=== PATIENT | female | born 1965 | race African-American/Black ===

== ENCOUNTER 2016-08-21 10:15 | Inpatient (IN) | payer OTHER ==
[2016-08-21 10:24] VITALS: BMI 25.8
--- NOTE | 2016-08-21 11:13 | PDOC ---
History of Present Illness - General History Source: Patient Exam Limitations: No Limitations <Parisa Abebe - Last Filed: 08/21/16 16:25> - General History Source: Patient Exam Limitations: No Limitations - History of Present Illness Initial Comments: 08/21/16 11:55 The patient is a 51-year-old female with a significant past medical history of diabetes, kidney infection, stent in right leg, asthma, and gallstones, and presents to the emergency department with a wound infection and right toe pain, redness, and swelling for a week s/p right toe amputation one month ago. The patient had a portion of her 4th and 5th right toes amputated since the toenail of her 5th toe came off in May. She reports that she visited [facility] yesterday for the infection and blood flow issues and wanted to obtain a second consult about further amputation. The patient denies chest pain, shortness of breath, headache and dizziness. The patient denies fever, chills, nausea, vomit, diarrhea and constipation. The patient denies dysuria, frequency, urgency and hematuria. Allergies: NKDA Past Surgical History: Stent in right leg (through left groin) Social History: Current everyday smoker (6 cigarettes per day) PCP: Dr. Herbert Jo <Adrianne Vilchis - Last Filed: 08/21/16 17:39> - General Chief Complaint: Wound Infection Stated Complaint: RIGHT TOE PAIN Time Seen by Provider: 08/21/16 10:31 Past History - Past Medical History Asthma: Yes Diabetes: Yes - Psycho/Social/Smoking Cessation Hx Anxiety: No Suicidal Ideation: No Smoking Status: Yes Smoking History: Current every day smoker Have you smoked in the past 12 months: Yes Number of Cigarettes Smoked Daily: 6 Information on smoking cessation initiated: No Hx Alcohol Use: No Drug/Substance Use Hx: No Substance Use Type: Cocaine, Marijuana <Parisa Abebe - Last Filed: 08/21/16 16:25> <Adrianne Vilchis - Last Filed: 08/21/16 17:39> - Past Medical History Allergies/Adverse Reactions: Allergies Allergy/AdvReac Type Severity Reaction Status Date / Time No Known Allergies Allergy Verified 08/21/16 10:21 Home Medications: Ambulatory Orders Aspirin [ASA -] 81 mg PO DAILY 05/04/15 Diclofenac Sodium [Voltaren-Xr] 100 mg PO DAILY 05/04/15 Famotidine [Pepcid] 20 mg PO DAILY #30 05/04/15 Gabapentin [Neurontin -] 300 mg PO Q8H 05/04/15 Insulin (Levemir) [Levemir Vial] 60 unit SQ DAILY 05/04/15 Insulin Lispro Protamin/Lispro [Humalog Mix 75-25 Kwikpen] 30 unit SQ BID Metformin HCl [Glucophage] 1,000 mg PO BID 05/04/15 Oxycodone HCl/Acetaminophen [Percocet 10-325 mg Tablet] 1 tab PO Q6H PRN Atorvastatin Calcium 20 mg PO HS 08/21/16 Cefdinir [Omnicef -] 300 mg PO DAILY 08/21/16 Metoprolol Tartrate 50 mg PO DAILY 08/21/16 Metronidazole [Flagyl -] 500 mg PO DAILY 08/21/16 Oxycodone HCl/Acetaminophen [Endocet 5-325 Tablet] 1 each PO DAILY 08/21/16 Tiotropium [place] [Spiriva] 1 inh PO DAILY 08/21/16 Review of Systems - Review of Systems Able to Perform ROS?: Yes Comments:: 08/21/16 11:57 GENERAL/CONSTITUTIONAL: No fever or chills. No weakness. HEAD, EYES, EARS, NOSE AND THROAT: No change in vision. No ear pain or discharge. No sore throat. CARDIOVASCULAR: No chest pain or shortness of breath. RESPIRATORY: No cough, wheezing, or hemoptysis. GASTROINTESTINAL: No nausea, vomiting, diarrhea or constipation. GENITOURINARY: No dysuria, frequency, or change in urination. MUSCULOSKELETAL: No joint or muscle swelling or pain. No neck or back pain. EXTREMITIES: (+) Right foot pain, swelling and redness. (+) Right 5th toe amputation and infection. SKIN: No rash NEUROLOGIC: No headache, vertigo, loss of consciousness, or change in strength/ sensation. ENDOCRINE: No increased thirst. No abnormal weight change. HEMATOLOGIC/LYMPHATIC: No anemia, easy bleeding, or history of blood clots. ALLERGIC/IMMUNOLOGIC: No hives or skin allergy. <Vilchis,Adrianne - Last Filed: 08/21/16 17:39> *Physical Exam - Vital Signs Last Vital Signs Temp Pulse Resp BP Pulse Ox 98.1 F 80 18 131/76 100 08/21/16 10:22 08/21/16 10:22 08/21/16 10:22 08/21/16 10:22 08/21/16 10:22 <Parisa Abebe - Last Filed: 08/21/16 16:25> - Vital Signs Last Vital Signs Temp Pulse Resp BP Pulse Ox 98.1 F 80 18 131/76 100 08/21/16 10:22 08/21/16 10:22 08/21/16 10:22 08/21/16 10:22 08/21/16 10:22 - Physical Exam Comments: 08/21/16 11:58 GENERAL: Awake, alert, and fully oriented, in no acute distress HEAD: No signs of trauma EYES: PERRLA, EOMI, sclera anicteric, conjunctiva clear ENT: Auricles normal inspection, hearing grossly normal, nares patent, oropharynx clear without exudates. Moist mucosa NECK: Normal ROM, supple, no lymphadenopathy, JVD, or masses LUNGS: Breath sounds equal, clear to auscultation bilaterally. No wheezes, and no crackles HEART: Regular rate and rhythm, normal S1 and S2, no murmurs, rubs or gallops ABDOMEN: Soft, nontender, normoactive bowel sounds. No guarding, no rebound. No masses EXTREMITIES: (+) Right foot swollen and tender to palpation. (+) Surgical removal of 5th toe with open wound. Unable to obtain dopplerable signal. Normal range of motion, no edema. No clubbing or cyanosis. No cords, erythema NEUROLOGICAL: Cranial nerves II through XII grossly intact. Normal speech, normal gait SKIN: Warm, Dry, normal turgor, no rashes or lesions noted. <Adrianne Vilchis - Last Filed: 08/21/16 17:39> ED Treatment Course - LABORATORY CBC & Chemistry Diagram: 08/21/16 11:08 08/21/16 11:08 - RADIOLOGY Radiology Studies Ordered: Category Date Time Status LOWER EXT ART DOPP/PVR [VASC] Stat Vascular 08/21/16 11:05 Ordered <Parisa Abebe - Last Filed: 08/21/16 16:25> - LABORATORY CBC & Chemistry Diagram: 08/21/16 11:08 08/21/16 11:08 - ADDITIONAL ORDERS Additional order review: 08/21/16 11:08 RBC 3.66 D MCV 89.3 MCHC 32.6 RDW 14.3 MPV 7.3 L D Neutrophils % 79.8 Lymphocytes % 9.1 D Monocytes % 7.1 D Eosinophils % 3.4 D Basophils % 0.6 - RADIOLOGY Radiograph Interpretation: 08/21/16 14:11 US Duplex Art. Lower Complex Reviewed by: Dr. Parisa Abebe Interpreted by: Dr. Fam Motta IMPRESSION: Mild atherosclerotic disease with no evidence of occlusions or hemodynamically significant stenoses. 08/21/16 17:38 ABDOMEN CTA AOR & BLE RUNOFF Reviewed by: Dr. Parisa Abebe Interpreted by: Dr. Pasha Lowe IMPRESSION: Bilateral lower extremity arterial atherosclerotic disease, as described above , with most significant disease in the infrapopliteal arteries: - Occluded origin of the right TAISHA which reconstitutes via collateral flow then reoccludes at the level of the distal ankle with predominant flow to the foot provided by peroneal artery as the SKIAGRAPHER x -ray high-grade stenosis at its origin and occlusion in its distal aspect with reconstitution distally via collateral flow before providing flow to the foot. - Poor runoff to the left foot as evident by occlusion of the left TAISHA at the level of the distal ankle as well as occluded left peroneal artery and posterior tibial artery with short segmental reconstitutions and flow to the foot provided by collateral filling of the plantar branches which in turn fills the dorsal aspect of the foot. Atrophied pancreatic body and tail containing coarse calcifications coupled with pancreatic ductal dilatation suggestive of chronic pancreatitis. However given the nonatrophied pancreatic head and neck with segmental atrophy distally further evaluation with MRI without and with IV gadolinium is suggested on a nonemergent basis. Status post hysterectomy. <Adrianne Vilchis - Last Filed: 08/21/16 17:39> Medical Decision Making - Medical Decision Making 08/21/16 11:13 A portion of this note was documented by scribe services under my direction. I have reviewed the details of the note, within reason, and agree with the documentation with the following case summary and management plan written by me. Nursing documentation reviewed and incorporated into medical decision making 08/21/16 11:31 This is a 51 yo F with a history of Insulin dependent DM, HTN, HLD, non healing right lower extremity foot ulcers, s/p amputation small toe Since may, pt has had several hospitalizations (?debridements) for foot infection at outside hospital Pt was seen by her surgeon yesterday who told her that she needs a BKA because her foot will not improve Pt refused surgical intervention , was encouraged by her sister to get a 2nd opinion Pt son brought her to the ER for her 2nd opinion PMD: Herbert Jo On examination Dusky right foot Pulse not palpable or dopplerable Right toe amputated Open wound with his dressed Will do: Labs US Art to 08/21/16 11:39 08/21/16 14:28 Laboratory Tests 08/21/16 08/21/16 11:08 11:08 WBC 19.2 H D Hgb 10.7 D Hct 32.7 D Plt Count 837 H D Neutrophils % 79.8 Lymphocytes % 9.1 D BUN 16 D Creatinine 1.2 H D Random Glucose 185 H Arterial duplex: Atherosclerotic plaque scattered throughout the common and SFA, popliteal and PT arteries. Triphasic flow noted throughout all vessels No evidence of occlusion or stenosis Call placed to Dr Manzo He recommends CTA Aorta with bilateral run offs Pt requesting pain medications Will give Morphine Will re assess 08/21/16 16:[address] Pimentel Will admit to his service Plan is for Angiogram tomorrow <Parisa Abebe - Last Filed: 08/21/16 16:25> - Medical Decision Making 08/21/16 13:39 Dr. Jose Manzo paged. 08/21/16 13:44 Dr. Manzo answered page. <Adrianne Vilchis - Last Filed: 08/21/16 17:39> *DC/Admit/Observation/Transfer - Discharge Dispostion Admit: Yes <Parisa Abebe - Last Filed: 08/21/16 16:25> - Attestations Scribe Attestion: 08/21/16 11:59 Documentation prepared by Adrianne Vilchis, acting as medical management specialist for Parisa Abebe MD. <Adrianne Vilchis - Last Filed: 08/21/16 17:39> Diagnosis at time of Disposition: Ischemic foot - Discharge Dispostion Condition at time of disposition: Stable - Referrals
[2016-08-21 11:42] LABS: BASOPHIL 0.6 % (0-2.0); EOSINOPHIL 3.4 % (0-4.5); MCH 29.1 pg (25.7-33.7); MCHC 32.6 g/dl (32.0-36.0); MEAN CELL VOLUME 89.3 fl (80-96); MEAN PLT VOLUME 7.3 fl (7.5-11.1); NEUTROPHILS 79.8 % (42.8-82.8); PLATELET COUNT 837 K/MM3 (134-434); RDW 14.3 % (11.6-15.6); WHITE BLOOD COUNT 19.2 K/mm3 (4.0-10.0)
[2016-08-21 12:01] LABS: ALBUMIN 1.8 g/dl (3.4-5.0); BILIRUBIN,TOTAL 0.2 mg/dL (0.2-1.0); CALCIUM 8.5 mg/dL (8.5-10.1); CREATININE 1.2 mg/dL (0.55-1.02); TOT PROT 6.3 g/dl (6.4-8.2)
[2016-08-21] MEDS ORDERED: morphine CARPU-JECT 4 MG/1 ML DISP.SYRIN IVPUSH ONE (14:09)
[2016-08-21] MEDS ORDERED: morphine CARPU-JECT 4 MG/1 ML DISP.SYRIN ONE (15:02)
--- NOTE | 2016-08-21 15:32 | CONSULT ---
Consult - Alcohol/Substance Use Hx Alcohol Use: No - Smoking History Smoking history: Current every day smoker Have you smoked in the past 12 months: Yes Aproximately how many cigarettes per day: 6 Home Medications - Allergies Allergies/Adverse Reactions: Allergies Allergy/AdvReac Type Severity Reaction Status Date / Time No Known Allergies Allergy Verified 08/21/16 10:21 - Home Medications Home Medications: Ambulatory Orders Aspirin [ASA -] 81 mg PO DAILY 05/04/15 Diclofenac Sodium [Voltaren-Xr] 100 mg PO DAILY 05/04/15 Famotidine [Pepcid] 20 mg PO DAILY #30 05/04/15 Gabapentin [Neurontin -] 300 mg PO Q8H 05/04/15 Insulin (Levemir) [Levemir Vial] 60 unit SQ DAILY 05/04/15 Insulin Lispro Protamin/Lispro [Humalog Mix 75-25 Kwikpen] 30 unit SQ BID Metformin HCl [Glucophage] 1,000 mg PO BID 05/04/15 Oxycodone HCl/Acetaminophen [Percocet 10-325 mg Tablet] 1 tab PO Q6H PRN Atorvastatin Calcium 20 mg PO HS 08/21/16 Cefdinir [Omnicef -] 300 mg PO DAILY 08/21/16 Metoprolol Tartrate 50 mg PO DAILY 08/21/16 Metronidazole [Flagyl -] 500 mg PO DAILY 08/21/16 Oxycodone HCl/Acetaminophen [Endocet 5-325 Tablet] 1 each PO DAILY 08/21/16 Tiotropium [place] [Spiriva] 1 inh PO DAILY 08/21/16 Physical Exam Vital Signs: Vital Signs Temperature 98.1 F 08/21/16 10:22 Pulse Rate 79 08/21/16 14:16 Respiratory Rate 17 08/21/16 14:16 Blood Pressure 122/75 08/21/16 14:16 O2 Sat by Pulse Oximetry (%) 99 08/21/16 14:16 Labs: CBC, BMP 08/21/16 11:08 08/21/16 11:08 Assessment/Plan VAscular Surgery The patient is a 51-year-old female with a significant past medical history of diabetes, kidney infection, stent in right leg, asthma, and gallstones, and presents to the emergency department with a wound infection and right toe pain, redness, and swelling for a week s/p right toe amputation one month ago. The patient had a portion of her 4th and 5th right toes amputated since the toenail of her 5th toe came off in May. She reports that she visited [facility] yesterday for the infection and blood flow issues and wanted to obtain a second consult about further amputation. The patient denies chest pain, shortness of breath, headache and dizziness. The patient denies fever, chills, nausea, vomit, diarrhea and constipation. The patient denies dysuria, frequency, urgency and hematuria. Allergies: NKDA Past Surgical History: Stent in right leg (through left groin) Social History: Current everyday smoker (6 cigarettes per day) PCP: Dr. Herbert Jo <Adrianne Vilchis - Last Filed: 08/21/16 14:12> - General History Source: Patient Exam Limitations: No Limitations <Parisa Abebe - Last Filed: 08/21/16 14:36> - General Chief Complaint: Wound Infection Stated Complaint: RIGHT TOE PAIN Time Seen by Provider: 08/21/16 10:31 Past History <Adrianne Vilchis - Last Filed: 08/21/16 14:12> - Past Medical History Asthma: Yes Diabetes: Yes - Psycho/Social/Smoking Cessation Hx Anxiety: No Suicidal Ideation: No Smoking Status: Yes Smoking History: Current every day smoker Have you smoked in the past 12 months: Yes Number of Cigarettes Smoked Daily: 6 Information on smoking cessation initiated: No Hx Alcohol Use: No Drug/Substance Use Hx: No Substance Use Type: Cocaine, Marijuana <Parisa Abebe - Last Filed: 08/21/16 14:36> - Past Medical History Allergies/Adverse Reactions: Allergies Allergy/AdvReac Type Severity Reaction Status Date / Time No Known Allergies Allergy Verified 08/21/16 10:21 Home Medications: Ambulatory Orders Aspirin [ASA -] 81 mg PO DAILY 05/04/15 Diclofenac Sodium [Voltaren-Xr] 100 mg PO DAILY 05/04/15 Famotidine [Pepcid] 20 mg PO DAILY #30 05/04/15 Gabapentin [Neurontin -] 300 mg PO Q8H 05/04/15 Insulin (Levemir) [Levemir Vial] 60 unit SQ DAILY 05/04/15 Insulin Lispro Protamin/Lispro [Humalog Mix 75-25 Kwikpen] 30 unit SQ BID Metformin HCl [Glucophage] 1,000 mg PO BID 05/04/15 Oxycodone HCl/Acetaminophen [Percocet 10-325 mg Tablet] 1 tab PO Q6H PRN Atorvastatin Calcium 20 mg PO HS 08/21/16 Cefdinir [Omnicef -] 300 mg PO DAILY 08/21/16 Metoprolol Tartrate 50 mg PO DAILY 08/21/16 Metronidazole [Flagyl -] 500 mg PO DAILY 08/21/16 Oxycodone HCl/Acetaminophen [Endocet 5-325 Tablet] 1 each PO DAILY 08/21/16 Tiotropium [place] [Spiriva] 1 inh PO DAILY 08/21/16 PE head - NC/AT Lung - CTA Heart - RRR abd -soft,nd,nt Ext - right forefoot gangrene. no palpable pulses. A/P Right foot gangrene. CTA reviewed with extensive tibial disease. Will need Angiogram. Will do amna. Jose Manzo DO
[2016-08-21] MEDS ORDERED: SODIUM CHLORIDE 500 ML IV STA (20:51)
[2016-08-21] MEDS: morphine CARPU-JECT 2 MG/1 ML DISP.SYRIN IVPB PRN (20:52)
[2016-08-21] MEDS: DOCUSATE SODIUM 100 MG CAPSULE (FP) PO SCH (21:45)
[2016-08-21] MEDS: GABAPENTIN 300 MG CAPSULE (FP) PO SCH (21:45)
[2016-08-21] MEDS: HEPARIN NA (PORCINE) 5,000 UNITS/ML 1ML VIAL SQ SCH (21:53)
[2016-08-21] MEDS ORDERED: INSULIN (NOVOLOG) ASPART 100 UNITS/ML 10ML VIAL ONE (21:58)
[2016-08-21] MEDS ORDERED: ATORVASTATIN CA 20 MG TABLET (FP) PO SCH (22:00)
[2016-08-21] MEDS: INSULIN SLIDING SCALE (NOVOLOG) 1 VIAL SQ SCH (22:00)
[2016-08-21] MEDS: DEXTROSE 5%-0.45% SALINE 1,000 ML IV SCH (23:22)
[2016-08-22] MEDS ORDERED: ceFAZolin SODIUM 1 GM VIAL IVPB ONE
[2016-08-22] MEDS: morphine CARPU-JECT 2 MG/1 ML DISP.SYRIN IVPB PRN ×3 (02:15→20:51)
[2016-08-22] MEDS: GABAPENTIN 300 MG CAPSULE (FP) PO SCH ×3 (06:49→22:19)
[2016-08-22] MEDS: INSULIN (NOVOLOG MIX 70/30) 100 UNITS/ML MDV SQ SCH ×2 (06:52→18:37)
[2016-08-22] MEDS: INSULIN SLIDING SCALE (NOVOLOG) 1 VIAL SQ SCH ×4 (06:53→22:35)
[2016-08-22 07:38] LABS: BASOPHIL 0.6 % (0-2.0); EOSINOPHIL 3.6 % (0-4.5); MCH 29.2 pg (25.7-33.7); MCHC 32.7 g/dl (32.0-36.0); MEAN CELL VOLUME 89.3 fl (80-96); MEAN PLT VOLUME 7.1 fl (7.5-11.1); NEUTROPHILS 71.3 % (42.8-82.8); PLATELET COUNT 761 K/MM3 (134-434)
[2016-08-22 08:04] LABS: ALBUMIN 1.3 g/dl (3.4-5.0); AMYLASE 65 U/L (25-115); ANION GAP 7 (8-16); CO2 25 mmol/L (21-32); GLUCOSE,RANDOM 191 mg/dL (74-106)
[2016-08-22 08:09] LABS: ALK PHOS 385 U/L (45-117); BILIRUBIN,TOTAL 0.1 mg/dL (0.2-1.0); CREATININE 0.8 mg/dL (0.55-1.02); SGOT/AST 14 U/L (15-37); SGPT/ALT 8 U/L (12-78); TOT PROT 4.9 g/dl (6.4-8.2)
[2016-08-22] MEDS: DOCUSATE SODIUM 100 MG CAPSULE (FP) PO SCH ×2 (09:27→22:18)
[2016-08-22] MEDS: HEPARIN NA (PORCINE) 5,000 UNITS/ML 1ML VIAL SQ SCH ×2 (09:27→22:19)
--- NOTE | 2016-08-22 09:43 | PN ---
Progress Note (short form) - Note Progress Note: ID Consult dictated Gangrene, R foot Leukocytosis, possible secondary infection Peripheral vascular disease Diabetes mellitus Await cultures Vascular surgery evaluation Empiric vancomycin/ zosyn
[2016-08-22] MEDS ORDERED: PIPERACILLIN/TAZOB 3.375 GM 50 ML IVPB SCH (10:00)
[2016-08-22] MEDS ORDERED: ACLIDINIUM BROMIDE 400 MCG/INH AERO.POWD IH SCH (10:00)
[2016-08-22] MEDS ORDERED: ASPIRIN 81 MG CHEWABLE TABLETS PO SCH (10:00)
[2016-08-22] MEDS ORDERED: METOPROLOL TARTRATE 50 MG TABLET (FP) PO SCH (10:00)
[2016-08-22] MEDS ORDERED: RANITIDINE HCL 150 MG TABLET (FP) PO SCH (10:00)
--- NOTE | 2016-08-22 10:58 | CONS ---
DATE OF CONSULTATION: HISTORY: The patient is a 51-year-old diabetic female with a history of peripheral vascular disease evaluated for leukocytosis. The patient was admitted to [facility] several weeks ago with an infection of the right 5th toe. She subsequently developed gangrene requiring amputation of that toe. Postoperatively she developed a wound infection and was re-hospitalized. She was treated with a course of IV antibiotic therapy. According to the patient, the foot became more discolored, and she was advised amputation of the right foot. She was discharged from [facility] and came to [facility] for a second opinion. She was seen in the emergency room where she was noted to have a necrotic wound involving the right foot and evidence of dry gangrene involving the remaining toes. She was also noted to have an elevated white blood cell count. She denies any fever or chills. The patient does not give a reliable history. At the present time, she complains of pain in the right foot especially with manipulation. PAST MEDICAL HISTORY: Positive for diabetes mellitus, peripheral vascular disease, asthma, cholelithiasis. PAST SURGICAL HISTORY: Status post vascular stent right lower extremity, hysterectomy, status post amputation of the right 5th toe. ALLERGIES: No known allergies. MEDICATIONS: Aspirin, Colace, Lipitor, metoprolol, Neurontin, insulin, Zantac. SOCIAL HISTORY: She lives at home in the community. She is an active smoker smoking approximately 6 cigarettes per day. Positive history of cocaine and marijuana use as per chart. HIV status is not known. SYSTEMS REVIEW: Neurologic: No loss of consciousness, seizure activity, focal weakness. Cardiac: Negative chest pain or palpitations. Respiratory: Negative cough or sputum production. Gastrointestinal: Negative vomiting or diarrhea. Genitourinary: Negative for urinary tract infection. LABORATORY DATA: White count on admission 19,000, presently 14 with 71 neutrophils, 16 lymphocytes, 8 monocytes, 3 eosinophils. Hematocrit 29.6, platelet count 761, BUN 11, creatinine 0.8, sedimentation rate 124, total bilirubin 0.1, alkaline phosphatase 385, AST 14. Chest x-ray negative for acute infiltrate. Blood cultures pending. PHYSICAL EXAMINATION: General: She is awake and alert. She is in no acute distress. Vital Signs: Temperature 97.1, blood pressure 141/74, pulse 90 and regular, respirations 18 per minute. HEENT: Sclerae anicteric. Heart: S1, S2. Lungs: Clear. Abdomen: Soft. No tenderness elicited. No mass, rebound, rigidity. Extremities: Right foot, there is a large ulceration present over the lateral aspect of the dorsal part of the right foot. It appears necrotic and dry. There appears to be exposed tender. The remaining toes are dusky. There is what appears to be dry gangrene extending from the toes to the midpart of the dorsum of the foot. No crepitus or fluctuance. No purulent drainage or foul odor. No lymphangitis. IMPRESSION: 1. Gangrene of the right foot. 2. Leukocytosis, possible secondary infection. 3. Peripheral vascular disease. 4. Diabetes mellitus. PLAN: Await blood cultures. Obtain C-reactive protein. X-ray of the foot. Vascular surgery evaluation. Empiric antibiotic therapy with vancomycin and Zosyn. Local wound care. Thank you for the kind referral. DELMI BLUM M.D. [id number]
--- NOTE | 2016-08-22 10:58 | HP ---
Admitting History and Physical - Primary Care Physician PCP: Lula Pimentel - Admission Chief Complaint: RIGHT LOWER EXTREMITY ARTERIAL OCCLUSION History of Present Illness: The patient is a 51-year-old female with a significant past medical history of diabetes, kidney infection, stent in right leg, asthma, and gallstones, and presents to the emergency department with a wound infection and right toe pain, redness, and swelling for a week s/p right toe amputation one month ago. The patient had a portion of her 4th and 5th right toes amputated since the toenail of her 5th toe came off in May. She reports that she visited [facility] yesterday for the infection and blood flow issues and wanted to obtain a second consult about further amputation. The patient denies chest pain, shortness of breath, headache and dizziness. The patient denies fever, chills, nausea, vomit, diarrhea and constipation. The patient denies dysuria, frequency, urgency and hematuria. Allergies: NKDA Past Surgical History: Stent in right leg (through left groin) Social History: Current everyday smoker (6 cigarettes per day) History Source: Patient Limitations to Obtaining History: No Limitations - Past Medical History Cardiovascular: Yes: HTN, Other ...: No Endocrine: Yes: Diabetes Mellitus - Smoking History Smoking history: Current every day smoker Have you smoked in the past 12 months: Yes Aproximately how many cigarettes per day: 6 - Alcohol/Substance Use Hx Alcohol Use: No Home Medications - Allergies Allergies/Adverse Reactions: Allergies Allergy/AdvReac Type Severity Reaction Status Date / Time No Known Allergies Allergy Verified 08/21/16 10:21 - Home Medications Home Medications: Ambulatory Orders Aspirin [ASA -] 81 mg PO DAILY 05/04/15 Diclofenac Sodium [Voltaren-Xr] 100 mg PO DAILY 05/04/15 Famotidine [Pepcid] 20 mg PO DAILY #30 05/04/15 Gabapentin [Neurontin -] 300 mg PO Q8H 05/04/15 Insulin (Levemir) [Levemir Vial] 60 unit SQ DAILY 05/04/15 Insulin Lispro Protamin/Lispro [Humalog Mix 75-25 Kwikpen] 30 unit SQ BID Metformin HCl [Glucophage] 1,000 mg PO BID 05/04/15 Oxycodone HCl/Acetaminophen [Percocet 10-325 mg Tablet] 1 tab PO Q6H PRN Atorvastatin Calcium 20 mg PO HS 08/21/16 Cefdinir [Omnicef -] 300 mg PO DAILY 08/21/16 Metoprolol Tartrate 50 mg PO DAILY 08/21/16 Metronidazole [Flagyl -] 500 mg PO DAILY 08/21/16 Oxycodone HCl/Acetaminophen [Endocet 5-325 Tablet] 1 each PO DAILY 08/21/16 Tiotropium [place] [Spiriva] 1 inh PO DAILY 08/21/16 Review of Systems - Review of Systems Constitutional: reports: Weakness Eyes: reports: No Symptoms HENT: reports: No Symptoms Neck: reports: No Symptoms Cardiovascular: reports: No Symptoms Respiratory: reports: No Symptoms Gastrointestinal: reports: No Symptoms Genitourinary: reports: No Symptoms Breasts: reports: No Symptoms Reported Musculoskeletal: reports: Muscle Pain, Other Integumentary: reports: No Symptoms Neurological: reports: Weakness Endocrine: reports: No Symptoms Hematology/Lymphatic: reports: No Symptoms Psychiatric: reports: No Symptoms Physical Examination Vital Signs: Vital Signs Temperature 97.1 F L 08/22/16 08:14 Pulse Rate 90 08/22/16 08:14 Respiratory Rate 18 08/22/16 08:14 Blood Pressure 141/74 08/22/16 08:14 O2 Sat by Pulse Oximetry (%) 99 08/21/16 21:00 Constitutional: Yes: Mild Distress, Moderate Distress Eyes: Yes: WNL HENT: Yes: WNL Neck: Yes: WNL Cardiovascular: Yes: WNL Respiratory: Yes: WNL Gastrointestinal: Yes: WNL Musculoskeletal: Yes: Muscle Weakness Extremities: Yes: Cold, Other Edema: Yes Edema: LLE: 1+, RLE: 1+ Peripheral Pulses WNL: Yes Wound/Incision: Yes: Dressing Dry and Intact ...Motor Strength: WNL Psychiatric: Yes: WNL Labs: CBC, BMP 08/22/16 06:35 08/22/16 06:35 Imaging - Results Cat Scan: Report Reviewed Problem List - Problems (1) Ischemic foot Code(s): I99.8 - OTHER DISORDER OF CIRCULATORY SYSTEM (2) Abdominal pain Code(s): R10.9 - UNSPECIFIED ABDOMINAL PAIN Qualifiers: Abdominal location: unspecified location Qualified Code(s): R10.9 - Unspecified abdominal pain (3) Tobacco dependence Code(s): F17.200 - NICOTINE DEPENDENCE, UNSPECIFIED, UNCOMPLICATED (4) 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
[2016-08-22] MEDS ORDERED: VANCOMYCIN 1 GRAM (PRE-DOCKED) 250 ML IVPB SCH (11:00)
[2016-08-22] MEDS ORDERED: NICOTINE 14 MG/24 HOURS TOPICAL PATCH TD SCH (11:00)
[2016-08-22] MEDS: DEXTROSE 5%-0.45% SALINE 1,000 ML IV SCH ×2 (11:49→20:53)
[2016-08-22] MEDS ORDERED: LIDOCAINE HCL 1%, 10 MG/ML (20ML VIAL) ONE (14:31)
[2016-08-22] MEDS ORDERED: HEPARIN NA (PORCINE) 5,000 UNITS/ML 1ML VIAL ONE ×2 (14:31→15:53)
[2016-08-22] MEDS ORDERED: PROPOFOL 20 ML ONE ×2 (14:46)
[2016-08-22] MEDS ORDERED: MIDAZOLAM HCL 2 MG/2 ML SINGLE DOSE VIAL ONE ×3 (14:46→15:09)
[2016-08-22] MEDS ORDERED: LIDOCAINE HCL 1%, 10 MG/ML (20ML VIAL) IJ ONE ×2 (15:15)
--- NOTE | 2016-08-22 15:59 | CONSULT ---
Consult Consult Specialty:: Nephrology Reason for Consultation:: elevated creatinine - History of Present Illness Chief Complaint: right foot pain History of Present Illness: Pt is a 51 year old female with pmhx of DM, PVD, asthma and gallstones who presents to the ER complaining of right foot pain. She says that is has been progressive. She complains of discoloration of her right leg. She went to [facility] [place], [place] and was told that she needs an amputation. She came here for a second opinion. She was found to have elevated creatinine and I was called to evaluate her. She did get a CT scan with contrast. She denies dysuria or hematuria. She is on diclofenac daily. Pt did have an episode of vomiting. 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 Medical History Cardio/Vascular: Yes: HTN, Other ...: No Endocrine: Yes: Diabetes Mellitus - Alcohol/Substance Use Hx Alcohol Use: No - Smoking History Smoking history: Current every day smoker Have you smoked in the past 12 months: Yes Aproximately how many cigarettes per day: 6 Home Medications - Allergies Allergies/Adverse Reactions: Allergies Allergy/AdvReac Type Severity Reaction Status Date / Time No Known Allergies Allergy Verified 08/21/16 10:21 - Home Medications Home Medications: Ambulatory Orders Aspirin [ASA -] 81 mg PO DAILY 05/04/15 Diclofenac Sodium [Voltaren-Xr] 100 mg PO DAILY 05/04/15 Famotidine [Pepcid] 20 mg PO DAILY #30 05/04/15 Gabapentin [Neurontin -] 300 mg PO Q8H 05/04/15 Insulin (Levemir) [Levemir Vial] 60 unit SQ DAILY 05/04/15 Insulin Lispro Protamin/Lispro [Humalog Mix 75-25 Kwikpen] 30 unit SQ BID Metformin HCl [Glucophage] 1,000 mg PO BID 05/04/15 Oxycodone HCl/Acetaminophen [Percocet 10-325 mg Tablet] 1 tab PO Q6H PRN Atorvastatin Calcium 20 mg PO HS 08/21/16 Cefdinir [Omnicef -] 300 mg PO DAILY 08/21/16 Metoprolol Tartrate 50 mg PO DAILY 08/21/16 Metronidazole [Flagyl -] 500 mg PO DAILY 08/21/16 Oxycodone HCl/Acetaminophen [Endocet 5-325 Tablet] 1 each PO DAILY 08/21/16 Tiotropium [place] [Spiriva] 1 inh PO DAILY 08/21/16 Family Disease History - Family Disease History Family History: Denies Review of Systems - Review of Systems Constitutional: reports: Chills, Malaise Eyes: reports: No Symptoms HENT: reports: No Symptoms Neck: reports: No Symptoms Cardiovascular: reports: No Symptoms Respiratory: reports: No Symptoms Gastrointestinal: reports: Vomiting Genitourinary: reports: No Symptoms Musculoskeletal: reports: Extremity Pain Integumentary: reports: Erythema Neurological: reports: No Symptoms Endocrine: reports: No Symptoms Physical Exam Vital Signs: Vital Signs Temperature 99.6 F 08/22/16 14:02 Pulse Rate 90 08/22/16 14:02 Respiratory Rate 20 08/22/16 14:02 Blood Pressure 160/80 08/22/16 14:02 O2 Sat by Pulse Oximetry (%) 99 08/21/16 21:00 Constitutional: Yes: Calm Eyes: Yes: Conjunctiva Clear HENT: Yes: Atraumatic Neck: Yes: Supple Cardiovascular: Yes: S1, S2 Respiratory: Yes: CTA Bilaterally Gastrointestinal: Yes: Soft, Vomiting Renal/: Yes: WNL Extremities: Yes: Other (right leg gangrene) Edema: No Neurological: Yes: Oriented Psychiatric: Yes: Oriented Labs: CBC, BMP 08/22/16 06:35 08/22/16 06:35 Laboratory Tests 05/04/15 08/21/16 08/21/16 16:00 11:08 11:08 WBC 19.2 H D Hgb Sodium Potassium Chloride Carbon Dioxide Anion Gap BUN Creatinine 0.6 1.2 H D Creat Clearance w eGFR Random Glucose Calcium Total Bilirubin 08/22/16 08/22/16 06:35 06:35 WBC 14.0 H Hgb 9.7 L Sodium 142 Potassium 4.8 Chloride 110 H Carbon Dioxide 25 Anion Gap 7 L BUN 11 D Creatinine 0.8 D Creat Clearance w eGFR > 60 Random Glucose 191 H Calcium 8.0 L Total Bilirubin 0.1 L D Imaging - Results Chest X-ray: Report Reviewed Problem List - Problems (1) Hypertension Code(s): I10 - ESSENTIAL (PRIMARY) HYPERTENSION (2) Ischemic foot Code(s): I99.8 - OTHER DISORDER OF CIRCULATORY SYSTEM (3) Tobacco dependence Code(s): F17.200 - NICOTINE DEPENDENCE, UNSPECIFIED, UNCOMPLICATED (4) 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 Code(s): E11.59 - TYPE 2 DIABETES MELLITUS WITH OTH CIRCULATORY COMPLICATIONS I70.209 - UNSP ATHSCL [place] ARTERIES OF EXTREMITIES, UNSP EXTREMITY (5) Abdominal pain Code(s): R10.9 - UNSPECIFIED ABDOMINAL PAIN Qualifiers: Abdominal location: unspecified location Qualified Code(s): R10.9 - Unspecified abdominal pain Assessment/Plan Current Medications Generic Name Dose Route Start Last Admin Trade Name Freq PRN Reason Stop Dose Admin Aclidinium [place] 1 puff 08/22/16 10:00 08/22/16 09:28 Tudorza - IH 1 puff BID BOLIVAR Administration Aspirin 81 mg 08/22/16 10:00 08/22/16 09:27 Asa - PO Not Given DAILY BOLIVAR Atorvastatin Calcium 20 mg 08/21/16 22:00 08/21/16 21:45 Lipitor - PO 20 mg HS BOLIVAR Administration Docusate Sodium 100 mg 08/21/16 22:00 08/22/16 09:27 Colace - PO 100 mg BID BOLIVAR Administration Gabapentin 300 mg 08/21/16 22:00 08/22/16 14:07 Neurontin - PO Not Given TID BOLIVAR Heparin Sodium (Porcine) 5,000 unit 08/21/16 22:00 08/22/16 09:27 Heparin - SQ Not Given BID BOLIVAR Dextrose/Sodium Chloride 1,000 mls @ 75 mls/hr 08/21/16 21:00 08/22/16 11:49 D5-1/2ns - IV 75 mls/hr ASDIR BOLIVAR Administration Vancomycin HCl 250 mls @ 166.667 mls/hr 08/22/16 11:00 08/22/16 13:18 Vancomycin (Pre-Docked) IVPB 166.667 mls/hr 1100,2300 BOLIVAR Administration Piperacillin Sod/Tazobactam Sod 50 mls @ 100 mls/hr 08/22/16 10:00 08/22/16 12: 30 Zosyn 3.375gm Ivpb (Pre-Docked) IVPB 100 mls/hr Q8H-IV BOLIVAR Administration Protocol Insulin Aspart 30 units 08/22/16 07:00 08/22/16 06:52 Novolog Mix 70/30 Vial SQ Not Given BIDAC BOLIVAR Insulin Aspart 1 vial 08/21/16 22:00 08/22/16 13:15 Novolog Vial Sliding Scale - SQ Not Given ACHS [facility] Protocol Metoprolol Tartrate 50 mg 08/22/16 10:00 08/22/16 09:27 Lopressor - PO 50 mg DAILY BOLIVAR Administration Morphine Sulfate 2 mg 08/21/16 20:40 08/22/16 10:17 Morphine Injection - IVPB 2 mg Q4H PRN Administration PAIN Nicotine 14 mg 08/22/16 11:00 08/22/16 13:20 Nicoderm Patch - TD Not Given DAILY [facility] Ranitidine HCl 150 mg 08/22/16 10:00 08/22/16 09:27 Zantac - PO 150 mg DAILY BOLIVAR Administration chart reviewed labs reviewed meds reviewed Impression 1. elevated creatinine likely from dehydration 2. PVD 3. active smoker 4. DM 5. HTN Plan - renal function is improved - cont with fluids - vascular follow up - check UA - repeat labs in am - stop diclofenac and avoid nsaids Dr Kitchen
[2016-08-22] MEDS ORDERED: PROTAMINE SULFATE 50 MG/5 ML VIAL ONE (16:11)
[2016-08-22] MEDS ORDERED: ONDANSETRON 4 MG/2 ML VIAL IVPUSH PRN ×2 (16:32→16:49)
[2016-08-22] MEDS ORDERED: HYDROmorphone HCL CARPU-JECT 1 MG/1 ML DISP.SYRIN IVPUSH PRN ×2 (16:32→16:49)
[2016-08-22] MEDS ORDERED: METOPROLOL TARTRATE 5 MG/5 ML VIAL ONE (16:40)
--- NOTE | 2016-08-22 16:40 | OP ---
Operative Note - Note: Operative Date: 08/22/16 Pre-Operative Diagnosis: Right foot gangrene Operation: Aortogram, Right lower extremity angiogram, Posterior tibial artery angioplasty Findings: AT and PT severe stenosis in foot. microvascular disease in foot Post-Operative Diagnosis: Same as Pre-op Surgeon: Jose Manzo Anesthesia: Fractional Estimated Blood Loss (mls): 50 Operative Report Dictated: Yes
[2016-08-22] MEDS ORDERED: LACTATED RINGERS SOLUTION 1,000 ML IV SCH ×2 (16:45→16:49)
--- NOTE | 2016-08-22 16:49 | PN ---
Progress Note (short form) - Note Progress Note: VAscular Surgery S/P angioplasty of tibial artery All disease is in the foot. all microvascular. If foot doesnt look good thursday, can attempt to use the crosser device (which has to be special ordered) to try to open more circulation to the forefoot. Currently pt has dopplerable DP adn PT pulse. Santyl daily and pt will need HBO upon DC Jose Manzo DO
--- NOTE | 2016-08-22 18:43 | CONSULT ---
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,ckd,has uncontrolled diabetes mellitus - History Source History Provided By: Patient - Past Medical History Cardio/Vascular: Yes: HTN, Other ...: No Endocrine: Yes: Diabetes Mellitus - Alcohol/Substance Use Hx Alcohol Use: No - Smoking History Smoking history: Current every day smoker Have you smoked in the past 12 months: Yes Aproximately how many cigarettes per day: 6 Home Medications - Allergies Allergies/Adverse Reactions: Allergies Allergy/AdvReac Type Severity Reaction Status Date / Time No Known Allergies Allergy Verified 08/21/16 10:21 - Home Medications Home Medications: Ambulatory Orders Aspirin [ASA -] 81 mg PO DAILY 05/04/15 Diclofenac Sodium [Voltaren-Xr] 100 mg PO DAILY 05/04/15 Famotidine [Pepcid] 20 mg PO DAILY #30 05/04/15 Gabapentin [Neurontin -] 300 mg PO Q8H 05/04/15 Insulin (Levemir) [Levemir Vial] 60 unit SQ DAILY 05/04/15 Insulin Lispro Protamin/Lispro [Humalog Mix 75-25 Kwikpen] 30 unit SQ BID Metformin HCl [Glucophage] 1,000 mg PO BID 05/04/15 Oxycodone HCl/Acetaminophen [Percocet 10-325 mg Tablet] 1 tab PO Q6H PRN Atorvastatin Calcium 20 mg PO HS 08/21/16 Cefdinir [Omnicef -] 300 mg PO DAILY 08/21/16 Metoprolol Tartrate 50 mg PO DAILY 08/21/16 Metronidazole [Flagyl -] 500 mg PO DAILY 08/21/16 Oxycodone HCl/Acetaminophen [Endocet 5-325 Tablet] 1 each PO DAILY 08/21/16 Tiotropium [place] [Spiriva] 1 inh PO DAILY 08/21/16 Review of Systems - Review of Systems Constitutional: reports: Malaise Eyes: reports: No Symptoms HENT: reports: No Symptoms Neck: reports: No Symptoms Cardiovascular: reports: Shortness of Breath Respiratory: reports: Exercise Intolerance Gastrointestinal: reports: No Symptoms Genitourinary: reports: No Symptoms Breasts: reports: No Symptoms Reported Musculoskeletal: reports: Extremity Pain, Muscle Pain, Muscle Cramps, Muscle Weakness Neurological: reports: Numbness, Weakness Endocrine: reports: Unexplained Weight Gain Hematology/Lymphatic: reports: No Symptoms Physical Exam Vital Signs: Vital Signs Temperature 99.1 F 08/22/16 16:30 Pulse Rate 85 08/22/16 17:30 Respiratory Rate 14 08/22/16 17:30 Blood Pressure 152/82 08/22/16 17:30 O2 Sat by Pulse Oximetry (%) 98 08/22/16 17:30 Constitutional: Yes: Anxious Eyes: Yes: EOM Intact HENT: Yes: Normocephalic Neck: Yes: Trachea Midline Cardiovascular: Yes: Regular Rate and Rhythm Respiratory: Yes: CTA Bilaterally Gastrointestinal: Yes: Normal Bowel Sounds ...Rectal Exam: Yes: Deferred Renal/: Yes: WNL Breast(s): Yes: WNL Musculoskeletal: Yes: Muscle Pain, Muscle Weakness Extremities: Yes: Delayed Capillary Refill, Pallor Edema: No Peripheral Pulses WNL: No Wound/Incision: Yes: Dressing Dry and Intact Neurological: Yes: Alert, Oriented, Numbness, Weakness Labs: CBC, BMP 08/22/16 06:35 08/22/16 06:35 Problem List - Problems (1) Hypertension Code(s): I10 - ESSENTIAL (PRIMARY) HYPERTENSION (2) Ischemic foot Code(s): I99.8 - OTHER DISORDER OF CIRCULATORY SYSTEM (3) 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 Code(s): E11.59 - TYPE 2 DIABETES MELLITUS WITH OTH CIRCULATORY COMPLICATIONS I70.209 - UNSP ATHSCL [place] ARTERIES OF EXTREMITIES, UNSP EXTREMITY Assessment/Plan Current Active Problems Hypertension (Acute) Ischemic foot (Acute) Tobacco dependence (Acute) 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 (Acute) Abnormal Lab Results 08/22/16 08/22/16 08/22/16 00:05 06:35 06:35 WBC 14.0 H RBC 3.32 L Hgb 9.7 L Hct 29.6 L Plt Count 761 H MPV 7.1 L Chloride 110 H Anion Gap 7 L Random Glucose 191 H Calcium 8.0 L Total Bilirubin 0.1 L D GGT 551 H AST 14 L D ALT 8 L D Alkaline Phosphatase 385 H D Total Protein 4.9 L D Albumin 1.3 L D Laboratory Results - last 24 hr 08/21/16 08/22/16 08/22/16 21:56 00:05 06:00 WBC RBC Hgb Hct MCV MCHC RDW Plt Count MPV Neutrophils % Lymphocytes % Monocytes % Eosinophils % Basophils % Sodium Potassium Chloride Carbon Dioxide Anion Gap BUN Creatinine Creat Clearance w eGFR POC Glucometer 269 Random Glucose Calcium Total Bilirubin GGT 551 H AST ALT Alkaline Phosphatase Total Protein Albumin Total Amylase Lipase 90 Cancelled 08/22/16 08/22/16 08/22/16 06:24 06:35 06:35 WBC 14.0 H RBC 3.32 L Hgb 9.7 L Hct 29.6 L MCV 89.3 MCHC 32.7 RDW 14.0 Plt Count 761 H MPV 7.1 L Neutrophils % 71.3 Lymphocytes % 16.1 D Monocytes % 8.4 Eosinophils % 3.6 Basophils % 0.6 Sodium 142 Potassium 4.8 Chloride 110 H Carbon Dioxide 25 Anion Gap 7 L BUN 11 D Creatinine 0.8 D Creat Clearance w eGFR > 60 POC Glucometer 176 Random Glucose 191 H Calcium 8.0 L Total Bilirubin 0.1 L D GGT AST 14 L D ALT 8 L D Alkaline Phosphatase 385 H D Total Protein 4.9 L D Albumin 1.3 L D Total Amylase 65 Lipase 74 08/22/16 08/22/16 13:14 18:19 WBC RBC Hgb Hct MCV MCHC RDW Plt Count MPV Neutrophils % Lymphocytes % Monocytes % Eosinophils % Basophils % Sodium Potassium Chloride Carbon Dioxide Anion Gap BUN Creatinine Creat Clearance w eGFR POC Glucometer 154 169 Random Glucose Calcium Total Bilirubin GGT AST ALT Alkaline Phosphatase Total Protein Albumin Total Amylase Lipase Current Medications Generic Name Dose Route Start Last Admin Trade Name Freq PRN Reason Stop Dose Admin Aclidinium [place] 1 puff 08/22/16 22:00 Tudorza - IH BID BOLIVAR Aspirin 81 mg 08/23/16 10:00 Asa - PO DAILY BOL[facility]AR Atorvastatin Calcium 20 mg 08/22/16 22:00 Lipitor - PO HS BOLIVAR Collagenase 1 applic 08/23/16 10:00 Santyl - TP DAILY BOL[facility]AR Docusate Sodium 100 mg 08/22/16 22:00 Colace - PO BID BOLIVAR Gabapentin 300 mg 08/22/16 22:00 Neurontin - PO TID [facility] Heparin Sodium (Porcine) 5,000 unit 08/22/16 22:00 Heparin - SQ BID [facility] Hydromorphone HCl 0.5 mg 08/22/16 16:49 Dilaudid Injection - IVPUSH 08/25/16 16:50 [id number] PRN PAIN Dextrose/Sodium Chloride 1,000 mls @ 75 mls/hr 08/22/16 16:49 D5-1/2ns - IV ASDIR [facility] Lactated Ringer's 1,000 mls @ 75 mls/hr 08/22/16 16:49 Lactated Ringers Solution IV ASDIR BOLIVAR Vancomycin HCl 250 mls @ 166.667 mls/hr 08/22/16 23:00 Vancomycin (Pre-Docked) IVPB 1100,2300 [facility] Piperacillin Sod/Tazobactam Sod 50 mls @ 100 mls/hr 08/22/16 18:00 Zosyn 3.375gm Ivpb (Pre-Docked) IVPB Q8H-IV [facility] Protocol Insulin Aspart 1 vial 08/22/16 22:00 Novolog Vial Sliding Scale - SQ ACHS [facility] Protocol Insulin Aspart 30 units 08/23/16 07:00 Novolog Mix 70/30 Vial SQ BIDAC [facility] Metoprolol Tartrate 50 mg 08/23/16 10:00 Lopressor - PO DAILY [facility] Morphine Sulfate 2 mg 08/22/16 16:49 Morphine Injection - IVPB Q4H PRN PAIN Nicotine 14 mg 08/23/16 10:00 Nicoderm Patch - TD DAILY [facility] Ondansetron HCl 4 mg 08/22/16 16:49 Zofran Injection IVPUSH 08/22/16 22:33 Q6H PRN NAUSEA AND/OR VOMITING Ranitidine HCl 150 mg 08/23/16 10:00 Zantac - PO DAILY [facility] plan: ck hba1c insulin coverage achs novolog novolg 70/30 30 units bid
[2016-08-22] MEDS: PIPERACILLIN/TAZOB 3.375 GM 50 ML IVPB SCH (18:59)
--- NOTE | 2016-08-22 19:35 | CON.GI ---
Consult Consult Specialty:: GASTROENTEROLOGY Referred by:: MERVIN RODRIGUEZ MD - History of Present Illness Chief Complaint: ABNORMAL PANCREAS ON CT SCAN History of Present Illness: 51 YEAR OLD ALCOHOLIC WHO STOPPED DRINKING LAST YEAR AFTER BOUTS OF PANCREATITIS ADMITTED WITH INFECTED AND ISCHEMIC RIGHT TOE THAT HAD AN ABNORMAL PANCREAS SEEN ON CT SCAN SHE HAS NO COMPLAINTS OF UPPER ABDOMINAL PAIN. SHE IS S/P CHOLECYSECTOMY FOR GALLSTONES IN 1997, HER LAST DRINK WAS A YEAR AGO. CT SCAN SHOWS AN ATROPHIC PANCREATIC TAIL AND CALCIFICATIONS IN THE [place]. THE ONLY PAIN SHE HAS IS ASSOCIATED WITH FATTY FOOD. SHE HAS SOME LOOSE STOOL ON OCCASION BUT THIS IS NOT OFTEN. SHE IS FOLLOWED BY A MATE CHIEF ON [facility]??? - History Source History Provided By: Patient Limitations to Obtaining History: Poor Historian - Past Medical History Cardio/Vascular: Yes: HTN, Other Pulmonary: Yes: Asthma Gastrointestinal: Yes: Pancreatitis Hepatobiliary: Yes: Other (ALCOHOLISM STOPPED ONE YEAR AGO) Renal/: Yes: Other (PYLEONEPHRITIS RECENTLY AT [facility]) ...: No Endocrine: Yes: Diabetes Mellitus - Past Surgical History Past Surgical History: Yes: Cholecystectomy - Alcohol/Substance Use Hx Alcohol Use: No ( ABOVE) - Smoking History Smoking history: Current every day smoker Have you smoked in the past 12 months: Yes Aproximately how many cigarettes per day: 6 Home Medications - Allergies Allergies/Adverse Reactions: Allergies Allergy/AdvReac Type Severity Reaction Status Date / Time No Known Allergies Allergy Verified 08/21/16 10:21 - Home Medications Home Medications: Ambulatory Orders Aspirin [ASA -] 81 mg PO DAILY 05/04/15 Diclofenac Sodium [Voltaren-Xr] 100 mg PO DAILY 05/04/15 Famotidine [Pepcid] 20 mg PO DAILY #30 05/04/15 Gabapentin [Neurontin -] 300 mg PO Q8H 05/04/15 Insulin (Levemir) [Levemir Vial] 60 unit SQ DAILY 05/04/15 Insulin Lispro Protamin/Lispro [Humalog Mix 75-25 Kwikpen] 30 unit SQ BID Metformin HCl [Glucophage] 1,000 mg PO BID 05/04/15 Oxycodone HCl/Acetaminophen [Percocet 10-325 mg Tablet] 1 tab PO Q6H PRN Atorvastatin Calcium 20 mg PO HS 08/21/16 Cefdinir [Omnicef -] 300 mg PO DAILY 08/21/16 Metoprolol Tartrate 50 mg PO DAILY 08/21/16 Metronidazole [Flagyl -] 500 mg PO DAILY 08/21/16 Oxycodone HCl/Acetaminophen [Endocet 5-325 Tablet] 1 each PO DAILY 08/21/16 Tiotropium [place] [Spiriva] 1 inh PO DAILY 08/21/16 Review of Systems - Review of Systems Constitutional: reports: No Symptoms Eyes: reports: No Symptoms HENT: reports: No Symptoms Neck: reports: No Symptoms Cardiovascular: reports: No Symptoms Respiratory: reports: No Symptoms Gastrointestinal: reports: No Symptoms Musculoskeletal: reports: Extremity Pain, Muscle Cramps Integumentary: reports: Change in Color Physical Exam-GI Vital Signs: Vital Signs Temperature 99.1 F 08/22/16 16:30 Pulse Rate 85 08/22/16 17:30 Respiratory Rate 14 08/22/16 17:30 Blood Pressure 152/82 08/22/16 17:30 O2 Sat by Pulse Oximetry (%) 98 08/22/16 17:30 Constitutional: Yes: No Distress, Other (S/P ANGIOPLASTY LOWER EXTREMITY) Cardiovascular: Yes: WNL Respiratory: Yes: WNL Gastrointestinal Inspection: Yes: WNL ...Auscultate: Yes: Normoactive Bowel Sounds ...Palpate: Yes: Soft Extremities: Yes: Other (DRESSINGS) Neurological: Yes: WNL Labs: CBC, BMP 08/22/16 06:35 08/22/16 06:35 Laboratory Tests 08/21/16 08/21/16 08/21/16 11:08 11:08 16:40 WBC 19.2 H D RBC 3.66 D Hgb 10.7 D Hct 32.7 D MCV 89.3 MCHC 32.6 RDW 14.3 Plt Count 837 H D MPV 7.3 L D Neutrophils % 79.8 Lymphocytes % 9.1 D Monocytes % 7.1 D Eosinophils % 3.4 D Basophils % 0.6 ESR Sodium Potassium Chloride Carbon Dioxide Anion Gap BUN Creatinine Creat Clearance w eGFR Random Glucose Calcium Total Bilirubin 0.2 D GGT AST 26 ALT 13 D Alkaline Phosphatase 488 H D C-Reactive Protein 6.9 H Total Protein Albumin 1.8 L D Total Amylase Lipase 08/21/16 08/22/16 08/22/16 16:40 00:05 06:35 WBC 14.0 H RBC 3.32 L Hgb 9.7 L Hct 29.6 L MCV 89.3 MCHC 32.7 RDW 14.0 Plt Count 761 H MPV 7.1 L Neutrophils % 71.3 Lymphocytes % 16.1 D Monocytes % 8.4 Eosinophils % 3.6 Basophils % 0.6 ESR 124 H Sodium Potassium Chloride Carbon Dioxide Anion Gap BUN Creatinine Creat Clearance w eGFR Random Glucose Calcium Total Bilirubin GGT 551 H AST ALT Alkaline Phosphatase C-Reactive Protein Total Protein Albumin Total Amylase Lipase 90 08/22/16 06:35 WBC RBC Hgb Hct MCV MCHC RDW Plt Count MPV Neutrophils % Lymphocytes % Monocytes % Eosinophils % Basophils % ESR Sodium 142 Potassium 4.8 Chloride 110 H Carbon Dioxide 25 Anion Gap 7 L BUN 11 D Creatinine 0.8 D Creat Clearance w eGFR > 60 Random Glucose 191 H Calcium 8.0 L Total Bilirubin 0.1 L D GGT AST 14 L D ALT 8 L D Alkaline Phosphatase 385 H D C-Reactive Protein Total Protein 4.9 L D Albumin 1.3 L D Total Amylase 65 Lipase Imaging - Results Cat Scan: Image Reviewed Problem List - Problems (1) Chronic pancreatitis Assessment/Plan: CHRONIC DISEASE FROM ALCOHOL ADD CREON WITH MEALS LIPASE OK FOLLOW ALK PHOS, IF STILL ELEVATED GET AMA OUTPATIENT NOT ALLOWED TO DRAW THAT LAB TEST IN THIS HOSPITAL WITHOUT PERMISSION Code(s): K86.1 - OTHER CHRONIC PANCREATITIS (2) Hypertension Code(s): I10 - ESSENTIAL (PRIMARY) HYPERTENSION (3) Ischemic foot Code(s): I99.8 - OTHER DISORDER OF CIRCULATORY SYSTEM (4) Tobacco dependence Code(s): F17.200 - NICOTINE DEPENDENCE, UNSPECIFIED, UNCOMPLICATED (5) 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
[2016-08-22] MEDS ORDERED: HYDROmorphone HCL CARPU-JECT 2 MG/1 ML DISP.SYRIN ONE (20:14)
[2016-08-22] MEDS ORDERED: morphine CARPU-JECT 2 MG/1 ML DISP.SYRIN IVPB PRN (20:29)
[2016-08-22] MEDS: ATORVASTATIN CA 20 MG TABLET (FP) PO SCH (22:18)
[2016-08-22] MEDS: ACLIDINIUM BROMIDE 400 MCG/INH AERO.POWD IH SCH (22:28)
[2016-08-22] MEDS ORDERED: INSULIN (NOVOLOG) ASPART 100 UNITS/ML 10ML VIAL ONE (22:31)
[2016-08-22] MEDS: VANCOMYCIN 1 GRAM (PRE-DOCKED) 250 ML IVPB SCH (23:34)
[2016-08-23] MEDS: PIPERACILLIN/TAZOB 3.375 GM 50 ML IVPB SCH ×3 (02:11→17:22)
[2016-08-23] MEDS: morphine CARPU-JECT 2 MG/1 ML DISP.SYRIN IVPB PRN ×3 (03:40→19:54)
[2016-08-23] MEDS ORDERED: INSULIN (NOVOLOG) ASPART 100 UNITS/ML 10ML VIAL ONE ×2 (06:30→07:12)
[2016-08-23] MEDS: GABAPENTIN 300 MG CAPSULE (FP) PO SCH ×3 (06:31→22:30)
[2016-08-23] MEDS: INSULIN SLIDING SCALE (NOVOLOG) 1 VIAL SQ SCH ×4 (06:31→22:30)
[2016-08-23] MEDS: INSULIN (NOVOLOG MIX 70/30) 100 UNITS/ML MDV SQ SCH ×2 (06:32→17:22)
[2016-08-23 07:29] LABS: MCH 28.7 pg (25.7-33.7); MCHC 32.4 g/dl (32.0-36.0); MEAN CELL VOLUME 88.4 fl (80-96); MEAN PLT VOLUME 7.2 fl (7.5-11.1); PLATELET COUNT 760 K/MM3 (134-434); WHITE BLOOD COUNT 13.5 K/mm3 (4.0-10.0)
[2016-08-23 07:56] LABS: CALCIUM 7.9 mg/dL (8.5-10.1); CREATININE 0.8 mg/dL (0.55-1.02)
[2016-08-23] MEDS ORDERED: PT OWN MED DRAWER 7, Y5N ONE ×2 (07:57→08:44)
[2016-08-23] MEDS: LIPASE/PROTEASE/AMYLASE 6,000 UNIT CAPSULE PO SCH ×3 (08:59→17:18)
[2016-08-23] MEDS: HEPARIN NA (PORCINE) 5,000 UNITS/ML 1ML VIAL SQ SCH ×2 (09:00→22:29)
[2016-08-23] MEDS: ASPIRIN 81 MG CHEWABLE TABLETS PO SCH (09:00)
[2016-08-23] MEDS: DOCUSATE SODIUM 100 MG CAPSULE (FP) PO SCH ×2 (09:00→22:28)
[2016-08-23] MEDS: METOPROLOL TARTRATE 50 MG TABLET (FP) PO SCH (09:00)
[2016-08-23] MEDS: ACLIDINIUM BROMIDE 400 MCG/INH AERO.POWD IH SCH ×2 (09:01→22:34)
[2016-08-23] MEDS: NICOTINE 14 MG/24 HOURS TOPICAL PATCH TD SCH (09:06)
[2016-08-23] MEDS: RANITIDINE HCL 150 MG TABLET (FP) PO SCH (09:07)
--- NOTE | 2016-08-23 10:21 | PN ---
Progress Note, Physician Chief Complaint: AWAKE ALERT DISCUSSED CASE WITH HER PATIENT NERVOUS ABOUT HAVING HER RIGHT FOOT AMPUTATED. I DISCUSSED THE IMPORTANCE OF STOPING HER DANGEROUS LIFESTYLE OF ETOH/RECREATIONAL DRUG USE AND FOLLOWING A STRICT ADA/LOW SODIUM/LOW FAT DIET. - Current Medication List Current Medications: Active Medications Aclidinium [place] (Tudorza -) 1 puff IH BID [facility] Last Admin: 08/23/16 09:01 Dose: 1 puff Aspirin (Asa -) 81 mg PO DAILY [facility] Last Admin: 08/23/16 09:00 Dose: 81 mg Atorvastatin Calcium (Lipitor -) 20 mg PO HS [facility] Last Admin: 08/22/16 22:18 Dose: 20 mg Collagenase (Santyl -) 1 applic TP DAILY [facility] Docusate Sodium (Colace -) 100 mg PO BID [facility] Last Admin: 08/23/16 09:00 Dose: 100 mg Gabapentin (Neurontin -) 300 mg PO TID [facility] Last Admin: 08/23/16 06:31 Dose: 300 mg Heparin Sodium (Porcine) (Heparin -) 5,000 unit SQ BID [facility] Last Admin: 08/23/16 09:00 Dose: 5,000 unit Hydromorphone HCl (Dilaudid Injection -) 0.5 mg IVPUSH [id number] PRN PRN Reason: PAIN Stop: 08/25/16 16:50 Last Admin: 08/22/16 16:33 Dose: 0.5 mg Dextrose/Sodium Chloride (D5-1/2ns -) 1,000 mls @ 75 mls/hr IV ASDIR [facility] Last Admin: 08/22/16 20:53 Dose: 75 mls/hr Vancomycin HCl (Vancomycin (Pre-Docked)) 250 mls @ 166.667 mls/hr IVPB 1100, 2300 [facility] Last Admin: 08/22/16 23:34 Dose: 166.667 mls/hr Piperacillin Sod/Tazobactam Sod (Zosyn 3.375gm Ivpb (Pre-Docked)) 50 mls @ 100 mls/hr IVPB Q8H-IV [facility] PRN Reason: Protocol Last Admin: 08/23/16 09:07 Dose: 100 mls/hr Insulin Aspart (Novolog Vial Sliding Scale -) 1 vial SQ ACHS [facility] PRN Reason: Protocol Last Admin: 08/23/16 06:31 Dose: 2 units Insulin Aspart (Novolog Mix 70/30 Vial) 30 units SQ BIDAC [facility] Last Admin: 08/23/16 06:32 Dose: 30 units Metoprolol Tartrate (Lopressor -) 50 mg PO DAILY [facility] Last Admin: 08/23/16 09:00 Dose: 50 mg Morphine Sulfate (Morphine Injection -) 2 mg IVPB Q4H PRN PRN Reason: PAIN Last Admin: 08/23/16 08:28 Dose: 2 mg Morphine Sulfate (Morphine Injection -) 2 mg IVPB Q4H PRN PRN Reason: PAIN Nicotine (Nicoderm Patch -) 14 mg TD DAILY [facility] Last Admin: 08/23/16 09:06 Dose: 14 mg Pancrelipase (Creon Dr 6,000 Units Capsule) 2 cap PO TIDCM [facility] Last Admin: 08/23/16 08:59 Dose: 2 cap Ranitidine HCl (Zantac -) 150 mg PO DAILY [facility] Last Admin: 08/23/16 09:07 Dose: 150 mg - Objective Vital Signs: Vital Signs Temperature 98.2 F 08/23/16 09:00 Pulse Rate 100 H 08/23/16 09:00 Respiratory Rate 08/23/16 09:00 Blood Pressure 130/74 08/23/16 09:00 O2 Sat by Pulse Oximetry (%) 100 08/22/16 21:00 Constitutional: Yes: Mild Distress Eyes: Yes: WNL HENT: Yes: WNL Neck: Yes: WNL Cardiovascular: Yes: WNL Respiratory: Yes: WNL Gastrointestinal: Yes: WNL Genitourinary: Yes: WNL Musculoskeletal: Yes: Muscle Pain Extremities: Yes: Other Edema: No Peripheral Pulses WNL: Yes Integumentary: Yes: Pressure Ulcer, Venous Stasis Changes Wound/Incision: Yes: Dressing Dry and Intact, Other Neurological: Yes: Pre-Existing Deficit, Other ...Motor Strength: RLE Labs: CBC, BMP 08/23/16 06:00 08/23/16 06:00 Problem List - Problems (1) Ischemic foot Code(s): I99.8 - OTHER DISORDER OF CIRCULATORY SYSTEM (2) Abdominal pain Code(s): R10.9 - UNSPECIFIED ABDOMINAL PAIN Qualifiers: Abdominal location: unspecified location Qualified Code(s): R10.9 - Unspecified abdominal pain (3) Tobacco dependence Code(s): F17.200 - NICOTINE DEPENDENCE, UNSPECIFIED, UNCOMPLICATED (4) 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
[2016-08-23] MEDS: VANCOMYCIN 1 GRAM (PRE-DOCKED) 250 ML IVPB SCH ×2 (11:00→22:35)
--- NOTE | 2016-08-23 11:16 | PN ---
Progress Note, Physician History of Present Illness: C/O foot pain No c/o fever/ chills Afebrile WBC improved Tolerating antibiotics - Current Medication List Current Medications: Active Medications Aclidinium [place] (Tudorza -) 1 puff IH BID [facility] Last Admin: 08/23/16 09:01 Dose: 1 puff Aspirin (Asa -) 81 mg PO DAILY [facility] Last Admin: 08/23/16 09:00 Dose: 81 mg Atorvastatin Calcium (Lipitor -) 20 mg PO HS [facility] Last Admin: 08/22/16 22:18 Dose: 20 mg Collagenase (Santyl -) 1 applic TP DAILY [facility] Docusate Sodium (Colace -) 100 mg PO BID [facility] Last Admin: 08/23/16 09:00 Dose: 100 mg Gabapentin (Neurontin -) 300 mg PO TID [facility] Last Admin: 08/23/16 06:31 Dose: 300 mg Heparin Sodium (Porcine) (Heparin -) 5,000 unit SQ BID [facility] Last Admin: 08/23/16 09:00 Dose: 5,000 unit Hydromorphone HCl (Dilaudid Injection -) 0.5 mg IVPUSH [id number] PRN PRN Reason: PAIN Stop: 08/25/16 16:50 Last Admin: 08/22/16 16:33 Dose: 0.5 mg Dextrose/Sodium Chloride (D5-1/2ns -) 1,000 mls @ 75 mls/hr IV ASDIR [facility] Last Admin: 08/22/16 20:53 Dose: 75 mls/hr Vancomycin HCl (Vancomycin (Pre-Docked)) 250 mls @ 166.667 mls/hr IVPB 1100, 2300 [facility] Last Admin: 08/23/16 11:00 Dose: 166.667 mls/hr Piperacillin Sod/Tazobactam Sod (Zosyn 3.375gm Ivpb (Pre-Docked)) 50 mls @ 100 mls/hr IVPB Q8H-IV [facility] PRN Reason: Protocol Last Admin: 08/23/16 09:07 Dose: 100 mls/hr Insulin Aspart (Novolog Vial Sliding Scale -) 1 vial SQ ACHS [facility] PRN Reason: Protocol Last Admin: 08/23/16 11:00 Dose: Not Given Insulin Aspart (Novolog Mix 70/30 Vial) 30 units SQ BIDAC [facility] Last Admin: 08/23/16 06:32 Dose: 30 units Metoprolol Tartrate (Lopressor -) 50 mg PO DAILY [facility] Last Admin: 08/23/16 09:00 Dose: 50 mg Morphine Sulfate (Morphine Injection -) 2 mg IVPB Q4H PRN PRN Reason: PAIN Last Admin: 08/23/16 08:28 Dose: 2 mg Morphine Sulfate (Morphine Injection -) 2 mg IVPB Q4H PRN PRN Reason: PAIN Nicotine (Nicoderm Patch -) 14 mg TD DAILY [facility] Last Admin: 08/23/16 09:06 Dose: Not Given Pancrelipase (Creon Dr 6,000 Units Capsule) 2 cap PO TIDCM [facility] Last Admin: 08/23/16 08:59 Dose: 2 cap Ranitidine HCl (Zantac -) 150 mg PO DAILY [facility] Last Admin: 08/23/16 09:07 Dose: 150 mg - Objective Vital Signs: Vital Signs Temperature 98.2 F 08/23/16 09:00 Pulse Rate 100 H 08/23/16 09:00 Respiratory Rate 17 08/23/16 09:00 Blood Pressure 130/74 08/23/16 09:00 O2 Sat by Pulse Oximetry (%) 100 08/22/16 21:00 Constitutional: Yes: No Distress Eyes: Yes: Conjunctiva Clear Cardiovascular: Yes: Regular Rate and Rhythm, S1, S2 Respiratory: Yes: CTA Bilaterally Gastrointestinal: Yes: Normal Bowel Sounds, Soft. No: Tenderness Extremities: Yes: Other (+ dry foot ulcer, dusky toes No purulent drainage or foul odor) Labs: CBC, BMP 08/23/16 06:00 08/23/16 06:00 Assessment/Plan Gangrene R foot Non-healing ulcer Leukocytosis, possible sepsis PVD DM Continue empiric zosyn/ vancomycin Local wound care
--- NOTE | 2016-08-23 12:11 | PN ---
Progress Note (short form) - Note Progress Note: RENAL Pt asleep, arousable Last Vital Signs Temp Pulse Resp BP Pulse Ox 98.2 F 100 H 17 130/74 100 08/23/16 09:00 08/23/16 09:00 08/23/16 09:00 08/23/16 09:00 08/22/16 21:00 lungs clear cvs s1s2 rr abd soft ext dressing is clean neuro a+ox3 CBC, BMP 08/23/16 06:00 08/23/16 06:00 Current Medications Generic Name Dose Route Start Last Admin Trade Name Freq PRN Reason Stop Dose Admin Aclidinium [place] 1 puff 08/22/16 22:00 08/23/16 09:01 Tudorza - IH 1 puff BID [facility] Administration Aspirin 81 mg 08/23/16 10:00 08/23/16 09:00 Asa - PO 81 mg DAILY [facility] Administration Atorvastatin Calcium 20 mg 08/22/16 22:00 08/22/16 22:18 Lipitor - PO 20 mg HS [facility] Administration Collagenase 1 applic 08/23/16 10:00 Santyl - TP DAILY [facility] Docusate Sodium 100 mg 08/22/16 22:00 08/23/16 09:00 Colace - PO 100 mg BID [facility] Administration Gabapentin 300 mg 08/22/16 22:00 08/23/16 06:31 Neurontin - PO 300 mg TID [facility] Administration Heparin Sodium (Porcine) 5,000 unit 08/22/16 22:00 08/23/16 09:00 Heparin - SQ 5,000 unit BID [facility] Administration Hydromorphone HCl 0.5 mg 08/22/16 16:49 08/22/16 16:33 Dilaudid Injection - IVPUSH 08/25/16 16:50 0.5 mg [id number] PRN Administration PAIN Dextrose/Sodium Chloride 1,000 mls @ 75 mls/hr 08/22/16 16:49 08/22/16 20:53 D5-1/2ns - IV 75 mls/hr ASDIR [facility] Administration Vancomycin HCl 250 mls @ 166.667 mls/hr 08/22/16 23:00 08/23/16 11:00 Vancomycin (Pre-Docked) IVPB 166.667 mls/hr 1100,2300 [facility] Administration Piperacillin Sod/Tazobactam Sod 50 mls @ 100 mls/hr 08/22/16 18:00 08/23/16 09: 07 Zosyn 3.375gm Ivpb (Pre-Docked) IVPB 100 mls/hr Q8H-IV [facility] Administration Protocol Insulin Aspart 1 vial 08/22/16 22:00 08/23/16 11:00 Novolog Vial Sliding Scale - SQ Not Given ACHS [facility] Protocol Insulin Aspart 30 units 08/23/16 07:00 08/23/16 06:32 Novolog Mix 70/30 Vial SQ 30 units BIDAC [facility] Administration Metoprolol Tartrate 50 mg 08/23/16 10:00 08/23/16 09:00 Lopressor - PO 50 mg DAILY [facility] Administration Morphine Sulfate 2 mg 08/22/16 16:49 08/23/16 08:28 Morphine Injection - IVPB 2 mg Q4H PRN Administration PAIN Morphine Sulfate 2 mg 08/22/16 20:29 Morphine Injection - IVPB Q4H PRN PAIN Nicotine 14 mg 08/23/16 10:00 08/23/16 09:06 Nicoderm Patch - TD Not Given DAILY [facility] Pancrelipase 2 cap 08/23/16 08:00 08/23/16 11:[address] 6,000 Units Capsule PO 2 cap TIDCM [facility] Administration Ranitidine HCl 150 mg 08/23/16 10:00 08/23/16 09:07 Zantac - PO 150 mg DAILY [facility] Administration Impression 1. elevated creatinine likely from dehydration- resolved 2. PVD 3. active smoker 4. DM 5. HTN Plan continue current managements avoid nephrotoxins MV
[2016-08-23] MEDS: COLLAGENASE CLOSTRIDIUM HIST. 30 GRAMS TUBE TP SCH (15:35)
[2016-08-23] MEDS: DEXTROSE 5%-0.45% SALINE 1,000 ML IV SCH ×3 (15:35→20:52)
--- NOTE | 2016-08-23 19:20 | PN ---
Progress Note, Physician Chief Complaint: Pt. pain controlled, no anesthesia complaints. - Current Medication List Current Medications: Active Medications Aclidinium [place] (Tudorza -) 1 puff IH BID [facility] Last Admin: 08/23/16 09:01 Dose: 1 puff Aspirin (Asa -) 81 mg PO DAILY [facility] Last Admin: 08/23/16 09:00 Dose: 81 mg Atorvastatin Calcium (Lipitor -) 20 mg PO HS [facility] Last Admin: 08/22/16 22:18 Dose: 20 mg Collagenase (Santyl -) 1 applic TP DAILY [facility] Last Admin: 08/23/16 15:35 Dose: 1 applic Docusate Sodium (Colace -) 100 mg PO BID [facility] Last Admin: 08/23/16 09:00 Dose: 100 mg Gabapentin (Neurontin -) 300 mg PO TID [facility] Last Admin: 08/23/16 15:35 Dose: 300 mg Heparin Sodium (Porcine) (Heparin -) 5,000 unit SQ BID [facility] Last Admin: 08/23/16 09:00 Dose: 5,000 unit Hydromorphone HCl (Dilaudid Injection -) 0.5 mg IVPUSH [id number] PRN PRN Reason: PAIN Stop: 08/25/16 16:50 Last Admin: 08/22/16 16:33 Dose: 0.5 mg Dextrose/Sodium Chloride (D5-1/2ns -) 1,000 mls @ 75 mls/hr IV ASDIR [facility] Last Admin: 08/23/16 17:18 Dose: Not Given Vancomycin HCl (Vancomycin (Pre-Docked)) 250 mls @ 166.667 mls/hr IVPB 1100, 2300 [facility] Last Admin: 08/23/16 11:00 Dose: 166.667 mls/hr Piperacillin Sod/Tazobactam Sod (Zosyn 3.375gm Ivpb (Pre-Docked)) 50 mls @ 100 mls/hr IVPB Q8H-IV [facility] PRN Reason: Protocol Last Admin: 08/23/16 17:22 Dose: 100 mls/hr Insulin Aspart (Novolog Vial Sliding Scale -) 1 vial SQ ACHS [facility] PRN Reason: Protocol Last Admin: 08/23/16 17:18 Dose: 2 units Insulin Aspart (Novolog Mix 70/30 Vial) 30 units SQ BIDAC [facility] Last Admin: 03/04/17 17:22 Dose: 30 units Metoprolol Tartrate (Lopressor -) 50 mg PO DAILY [facility] Last Admin: 08/23/16 09:00 Dose: 50 mg Morphine Sulfate (Morphine Injection -) 2 mg IVPB Q4H PRN PRN Reason: PAIN Last Admin: 08/23/16 08:28 Dose: 2 mg Morphine Sulfate (Morphine Injection -) 2 mg IVPB Q4H PRN PRN Reason: PAIN Nicotine (Nicoderm Patch -) 14 mg TD DAILY [facility] Last Admin: 08/23/16 09:06 Dose: Not Given Pancrelipase (Creon Dr 6,000 Units Capsule) 2 cap PO TIDCM [facility] Last Admin: 08/23/16 17:18 Dose: 2 cap Ranitidine HCl (Zantac -) 150 mg PO DAILY [facility] Last Admin: 08/23/16 09:07 Dose: 150 mg - Objective Vital Signs: Vital Signs Temperature 99.1 F 08/23/16 18:00 Pulse Rate 90 08/23/16 18:00 Respiratory Rate 18 08/23/16 18:00 Blood Pressure 158/79 08/23/16 18:00 O2 Sat by Pulse Oximetry (%) 98 08/23/16 09:00 Constitutional: Yes: Well Nourished, No Distress, Calm Musculoskeletal: Yes: WNL Neurological: Yes: WNL, Alert, Oriented Labs: CBC, BMP 08/23/16 06:00 08/23/16 06:00 Assessment/Plan POD#1 s/p angiogram/angioplasty under TIVA. Doing well. D/C from anesthesia care.
[2016-08-23] MEDS ORDERED: DEXTROSE 50%-WATER 50 ML DISP.SYRIN IVPUSH ONE (20:45)
--- NOTE | 2016-08-23 21:32 | OP ---
DATE OF OPERATION: 08/22/2016 PREOPERATIVE DIAGNOSIS: Right foot gangrene. POSTOPERATIVE DIAGNOSIS: Right foot gangrene. PROCEDURE: Aortogram, right lower extremity angiogram, posterior tibial artery angioplasty. SURGEON: Jose Sevilla DO ANESTHESIA: Fractional. BLOOD LOSS: 50 mL. The patient is a 51-year-old female that comes from another institution from [facility] after she was told there that she needs a below-knee amputation. She has right foot gangrene with tendon exposed with necrotic tissue. She had a CTA performed preoperatively showing mainly tibial disease in her right lower extremity. Patient was consented for the procedure, understanding all risks, benefits, and alternatives, and then taken to the operating room. Once in the operating suite on the operating table in the supine manner, the areas of the right and left groin were prepped and draped in sterile surgical manner. We then injected 10 mL of lidocaine 1% over the left common femoral artery. We then took a micropuncture needle and punctured the left common femoral artery. Micropuncture wire was inserted. A traditional 5-[place] sheath was inserted. We then placed a 0.035 floppy guidewire up into the aorta followed by an Omni Flush catheter. We then shot an aortogram by hand injection showing that the aorta and the iliac arteries were without any disease. We then placed a 0.035 floppy guidewire down into the right common femoral artery and an Omni Flush catheter was placed there. We then shot an angiogram of the right lower extremity showing that the common femoral artery, the profunda, and the SFA were patent. Popliteal artery was patent. Anterior tibial artery was patent. Peroneal artery and posterior tibial artery were patent, but all were severely diseased from the ankle down and most of the disease was all microvascular in the foot. At this point, we placed a 0.035 floppy guidewire down into the SFA, took out our Omni Flush catheter, placed a 6 x 45 crossover sheath. Five thousand units of IV heparin were administered to the patient. We then selectively cannulated into the posterior tibial artery with our Quick-Cross catheter and an 0.035 wire which was then exchanged to an 0.18 wire. The wire was placed into the foot in the heel. We then went ahead and used a 2 x 10 balloon and performed angioplasty to the posterior tibial artery. We then placed an 0.035 wire down into the AT and down into the forefoot, but we could not get the wire any farther and the anterior tibial artery seemed to be her main runoff and we did not want to disturb that. So at this point we shot a completion angiogram from the knee down from the popliteal artery down showing that there was flow going into the foot mostly via collateral circulation, but the AT had branches coming down and going into the foot. The posterior tibial artery was patent up to the ankle but then had closed because it mainly survives in the foot with collateral circulation. At this point, we brought our sheath up and over and the StarClose device was successfully employed in the left common femoral artery. The area was wet and dried and Dermabond was placed. Patient tolerated the procedure with no complications. Upon arrival to the recovery room, patient had dopplerable DP and PT pulses. I am not sure if this will be adequate enough for patient's wounds to heal. Patient will need hyperbaric oxygen therapy and Santyl to the wound and we will watch the wound. JOSE SEVILLA DO NP/[id number]
[2016-08-23] MEDS: ATORVASTATIN CA 20 MG TABLET (FP) PO SCH (22:28)
[2016-08-24] MEDS: PIPERACILLIN/TAZOB 3.375 GM 50 ML IVPB SCH ×3 (01:49→17:08)
[2016-08-24] MEDS: oxyCODONE HCL 5 MG TABLET PO PRN ×3 (02:00→14:04)
[2016-08-24] MEDS: INSULIN SLIDING SCALE (NOVOLOG) 1 VIAL SQ SCH ×4 (06:21→21:07)
[2016-08-24] MEDS: INSULIN (NOVOLOG MIX 70/30) 100 UNITS/ML MDV SQ SCH (06:48)
[2016-08-24] MEDS: GABAPENTIN 300 MG CAPSULE (FP) PO SCH ×3 (06:48→21:11)
[2016-08-24] MEDS ORDERED: PT OWN MED DRAWER 7, Y5N ONE (07:41)
[2016-08-24] MEDS: LIPASE/PROTEASE/AMYLASE 6,000 UNIT CAPSULE PO SCH ×3 (08:03→17:07)
[2016-08-24] MEDS: ASPIRIN 81 MG CHEWABLE TABLETS PO SCH (10:02)
[2016-08-24] MEDS: DOCUSATE SODIUM 100 MG CAPSULE (FP) PO SCH ×2 (10:02→21:12)
[2016-08-24] MEDS: DEXTROSE 5%-0.45% SALINE 1,000 ML IV SCH ×2 (10:02→21:14)
[2016-08-24] MEDS: RANITIDINE HCL 150 MG TABLET (FP) PO SCH (10:02)
[2016-08-24] MEDS: METOPROLOL TARTRATE 50 MG TABLET (FP) PO SCH (10:02)
[2016-08-24] MEDS: HEPARIN NA (PORCINE) 5,000 UNITS/ML 1ML VIAL SQ SCH ×2 (10:02→21:12)
[2016-08-24] MEDS: ACLIDINIUM BROMIDE 400 MCG/INH AERO.POWD IH SCH ×2 (10:03→21:13)
[2016-08-24] MEDS: NICOTINE 14 MG/24 HOURS TOPICAL PATCH TD SCH (10:04)
[2016-08-24] MEDS: COLLAGENASE CLOSTRIDIUM HIST. 30 GRAMS TUBE TP SCH (10:04)
[2016-08-24] MEDS ORDERED: DEXTROSE 50%-WATER 50 ML DISP.SYRIN IVPUSH ONE (12:00)
[2016-08-24] MEDS: VANCOMYCIN 1 GRAM (PRE-DOCKED) 250 ML IVPB SCH (12:28)
--- NOTE | 2016-08-24 13:17 | PN ---
Progress Note, Physician Chief Complaint: AWAKE, REPORTS PO OXYCODONE NOT HOLDING HER PAIN TO A CONTROLLABLE LEVEL. DENIES CHEST PAIN/SOB/FEVERS - Current Medication List Current Medications: Active Medications Aclidinium [place] (Tudorza -) 1 puff IH BID [facility] Last Admin: 08/24/16 10:03 Dose: 1 puff Aspirin (Asa -) 81 mg PO DAILY [facility] Last Admin: 08/24/16 10:02 Dose: 81 mg Atorvastatin Calcium (Lipitor -) 20 mg PO HS [facility] Last Admin: 08/23/16 22:28 Dose: 20 mg Collagenase (Santyl -) 1 applic TP DAILY [facility] Last Admin: 08/24/16 10:04 Dose: 1 applic Docusate Sodium (Colace -) 100 mg PO BID [facility] Last Admin: 08/24/16 10:02 Dose: 100 mg Gabapentin (Neurontin -) 300 mg PO TID [facility] Last Admin: 08/24/16 06:48 Dose: 300 mg Heparin Sodium (Porcine) (Heparin -) 5,000 unit SQ BID [facility] Last Admin: 08/24/16 10:02 Dose: 5,000 unit Hydromorphone HCl (Dilaudid Injection -) 1 mg IVPB Q6H PRN PRN Reason: PAIN Vancomycin HCl (Vancomycin (Pre-Docked)) 250 mls @ 166.667 mls/hr IVPB 1100, 2300 [facility] Last Admin: 08/24/16 12:28 Dose: Not Given Piperacillin Sod/Tazobactam Sod (Zosyn 3.375gm Ivpb (Pre-Docked)) 50 mls @ 100 mls/hr IVPB Q8H-IV [facility] PRN Reason: Protocol Last Admin: 08/24/16 10:03 Dose: 100 mls/hr Dextrose/Sodium Chloride (D5-1/2ns -) 1,000 mls @ 83 mls/hr IV ASDIR [facility] Last Admin: 08/24/16 10:02 Dose: 83 mls/hr Insulin Aspart (Novolog Vial Sliding Scale -) 1 vial SQ ACHS [facility] PRN Reason: Protocol Last Admin: 08/24/16 11:59 Dose: Not Given Metoprolol Tartrate (Lopressor -) 50 mg PO DAILY [facility] Last Admin: 08/24/16 10:02 Dose: 50 mg Nicotine (Nicoderm Patch -) 14 mg TD DAILY [facility] Last Admin: 08/24/16 10:04 Dose: Not Given Oxycodone HCl (Roxicodone -) 10 mg PO Q6H PRN Last Admin: 08/24/16 08:01 Dose: 10 mg Pancrelipase (Creon Dr 6,000 Units Capsule) 2 cap PO TIDCM [facility] Last Admin: 08/24/16 12:03 Dose: 2 cap Ranitidine HCl (Zantac -) 150 mg PO DAILY [facility] Last Admin: 08/24/16 10:02 Dose: 150 mg - Objective Vital Signs: Vital Signs Temperature 98.4 F 08/24/16 10:00 Pulse Rate 97 H 08/24/16 10:00 Respiratory Rate 18 08/24/16 10:00 Blood Pressure 158/83 08/24/16 10:00 O2 Sat by Pulse Oximetry (%) 100 08/24/16 10:00 Constitutional: Yes: Moderate Distress Eyes: Yes: WNL HENT: Yes: WNL Neck: Yes: WNL Cardiovascular: Yes: WNL Respiratory: Yes: WNL Gastrointestinal: Yes: WNL Genitourinary: Yes: WNL Musculoskeletal: Yes: Muscle Pain, Muscle Weakness Extremities: Yes: Other Edema: Yes Edema: LLE: Trace, RLE: Trace Peripheral Pulses WNL: Yes Integumentary: Yes: Pressure Ulcer Wound/Incision: Yes: Dressing Dry and Intact, Unapproximated Neurological: Yes: Pre-Existing Deficit, Other ...Motor Strength: LLE, RLE Psychiatric: Yes: Other Labs: CBC, BMP 08/23/16 06:00 08/23/16 20:45 Problem List - Problems (1) Ischemic foot Code(s): I99.8 - OTHER DISORDER OF CIRCULATORY SYSTEM (2) Abdominal pain Code(s): R10.9 - UNSPECIFIED ABDOMINAL PAIN Qualifiers: Abdominal location: unspecified location Qualified Code(s): R10.9 - Unspecified abdominal pain (3) Tobacco dependence Code(s): F17.200 - NICOTINE DEPENDENCE, UNSPECIFIED, UNCOMPLICATED (4) 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
--- NOTE | 2016-08-24 13:22 | PN ---
Progress Note (short form) - Note Progress Note: RENAL Pt asleep, arousable Last Vital Signs Temp Pulse Resp BP Pulse Ox 98.4 F 97 H 18 158/83 100 08/24/16 10:00 08/24/16 10:00 08/24/16 10:00 08/24/16 10:00 08/24/16 10:00 lungs clear cvs s1s2 rr abd soft ext dressing is clean, RLE edema neuro a+ox3 CBC, BMP 08/23/16 06:00 08/23/16 20:45 Current Medications Generic Name Dose Route Start Last Admin Trade Name Freq PRN Reason Stop Dose Admin Aclidinium [place] 1 puff 08/22/16 22:00 08/24/16 10:03 Tudorza - IH 1 puff BID [facility] Administration Aspirin 81 mg 08/23/16 10:00 08/24/16 10:02 Asa - PO 81 mg DAILY [facility] Administration Atorvastatin Calcium 20 mg 08/22/16 22:00 08/23/16 22:28 Lipitor - PO 20 mg HS [facility] Administration Collagenase 1 applic 08/23/16 10:00 08/24/16 10:04 Santyl - TP 1 applic DAILY [facility] Administration Docusate Sodium 100 mg 08/22/16 22:00 08/24/16 10:02 Colace - PO 100 mg BID [facility] Administration Gabapentin 300 mg 08/22/16 22:00 08/24/16 06:48 Neurontin - PO 300 mg TID [facility] Administration Heparin Sodium (Porcine) 5,000 unit 08/22/16 22:00 08/24/16 10:02 Heparin - SQ 5,000 unit BID [facility] Administration Hydromorphone HCl 1 mg 08/24/16 10:46 Dilaudid Injection - IVPB Q6H PRN PAIN Vancomycin HCl 250 mls @ 166.667 mls/hr 08/22/16 23:00 08/24/16 12:28 Vancomycin (Pre-Docked) IVPB Not Given 1100,2300 [facility] Piperacillin Sod/Tazobactam Sod 50 mls @ 100 mls/hr 08/22/16 18:00 08/24/16 10: 03 Zosyn 3.375gm Ivpb (Pre-Docked) IVPB 100 mls/hr Q8H-IV [facility] Administration Protocol Dextrose/Sodium Chloride 1,000 mls @ 83 mls/hr 08/23/16 20:45 08/24/16 10:02 D5-1/2ns - IV 83 mls/hr ASDIR [facility] Administration Insulin Aspart 1 vial 08/22/16 22:00 08/24/16 11:59 Novolog Vial Sliding Scale - SQ Not Given ACHS [facility] Protocol Metoprolol Tartrate 50 mg 08/23/16 10:00 08/24/16 10:02 Lopressor - PO 50 mg DAILY [facility] Administration Nicotine 14 mg 08/23/16 10:00 08/24/16 10:04 Nicoderm Patch - TD Not Given DAILY [facility] Oxycodone HCl 10 mg 08/23/16 20:43 08/24/16 08:01 Roxicodone - PO 10 mg Q6H PRN Administration Pancrelipase 2 cap 08/23/16 08:00 08/24/16 12:[address] 6,000 Units Capsule PO 2 cap TIDCM [facility] Administration Ranitidine HCl 150 mg 08/23/16 10:00 08/24/16 10:02 Zantac - PO 150 mg DAILY [facility] Administration Impression 1. elevated creatinine likely from dehydration- resolved 2. PVD 3. active smoker 4. DM 5. HTN Plan continue current managements avoid nephrotoxins repeat BMP PT. Pt does not walk [facility]
[2016-08-24 18:05] LABS: URINE APPEARANCE CLEAR; URINE BILIRUBIN NEGATIVE (NEGATIVE); URINE BLOOD NEGATIVE (NEGATIVE); URINE COLOR STRAW; URINE GLUCOSE (UA) NEGATIVE (NEGATIVE); URINE KETONE NEGATIVE (NEGATIVE); URINE LEUK ESTERASE NEGATIVE (NEGATIVE); URINE NITRITE NEGATIVE (NEGATIVE); URINE UROBILINOGEN NEGATIVE E.U./dl (0.2-1.0)
[2016-08-24 18:09] LABS: URINE PROTEIN 2+ (NEGATIVE)
[2016-08-24 18:10] LABS: URINE HYALINE CAST 1 /lpf; URINE RBC 1 /hpf (0-3); URINE WBC 2 /hpf (3-5)
[2016-08-24] MEDS: ATORVASTATIN CA 20 MG TABLET (FP) PO SCH (21:12)
[2016-08-24] MEDS: HYDROmorphone HCL CARPU-JECT 1 MG/1 ML DISP.SYRIN IVPB PRN (21:18)
[2016-08-25] MEDS: PIPERACILLIN/TAZOB 3.375 GM 50 ML IVPB SCH ×3 (01:15→18:07)
[2016-08-25] MEDS: oxyCODONE HCL 5 MG TABLET PO PRN ×2 (05:47→15:25)
[2016-08-25] MEDS: GABAPENTIN 300 MG CAPSULE (FP) PO SCH ×3 (05:48→21:58)
[2016-08-25] MEDS: INSULIN SLIDING SCALE (NOVOLOG) 1 VIAL SQ SCH ×4 (06:21→21:57)
[2016-08-25 07:47] LABS: MCH 29.4 pg (25.7-33.7); MCHC 33.6 g/dl (32.0-36.0); MEAN CELL VOLUME 87.3 fl (80-96); MEAN PLT VOLUME 7.1 fl (7.5-11.1); PLATELET COUNT 666 K/MM3 (134-434); RDW 13.9 % (11.6-15.6); WHITE BLOOD COUNT 11.9 K/mm3 (4.0-10.0)
[2016-08-25 08:04] LABS: ALBUMIN 1.2 g/dl (3.4-5.0); ANION GAP 7 (8-16); BILIRUBIN,TOTAL 0.1 mg/dL (0.2-1.0); CALCIUM 7.9 mg/dL (8.5-10.1); CO2 26 mmol/L (21-32); CREATININE 0.8 mg/dL (0.55-1.02); GLUCOSE,RANDOM 172 mg/dL (74-106); MAGNESIUM 1.7 mg/dL (1.8-2.4); SGOT/AST 17 U/L (15-37); SGPT/ALT 9 U/L (12-78); TOT PROT 4.9 g/dl (6.4-8.2)
[2016-08-25 08:05] LABS: ALK PHOS 442 U/L (45-117)
[2016-08-25] MEDS: RANITIDINE HCL 150 MG TABLET (FP) PO SCH (09:33)
[2016-08-25] MEDS: METOPROLOL TARTRATE 50 MG TABLET (FP) PO SCH (09:33)
[2016-08-25] MEDS: ASPIRIN 81 MG CHEWABLE TABLETS PO SCH (09:55)
[2016-08-25] MEDS: NICOTINE 14 MG/24 HOURS TOPICAL PATCH TD SCH (09:56)
--- NOTE | 2016-08-25 11:38 | PN ---
Progress Note, Physician History of Present Illness: C/O foot pain with movement No c/o fever/ chills No reported wound drainage WBC improved BC (-) - Current Medication List Current Medications: Active Medications Aclidinium [place] (Tudorza -) 1 puff IH BID [facility] Last Admin: 08/24/16 21:13 Dose: 1 puff Aspirin (Asa -) 81 mg PO DAILY [facility] Last Admin: 08/25/16 09:55 Dose: 81 mg Atorvastatin Calcium (Lipitor -) 20 mg PO HS [facility] Last Admin: 08/24/16 21:12 Dose: 20 mg Collagenase (Santyl -) 1 applic TP DAILY [facility] Last Admin: 08/24/16 10:04 Dose: 1 applic Docusate Sodium (Colace -) 100 mg PO BID [facility] Last Admin: 08/24/16 21:12 Dose: 100 mg Gabapentin (Neurontin -) 300 mg PO TID [facility] Last Admin: 08/25/16 05:48 Dose: 300 mg Heparin Sodium (Porcine) (Heparin -) 5,000 unit SQ BID [facility] Last Admin: 08/24/16 21:12 Dose: 5,000 unit Hydromorphone HCl (Dilaudid Injection -) 1 mg IVPB Q6H PRN PRN Reason: PAIN Last Admin: 08/24/16 21:18 Dose: 1 mg Vancomycin HCl (Vancomycin (Pre-Docked)) 250 mls @ 166.667 mls/hr IVPB 1100, 2300 [facility] Last Admin: 08/24/16 12:28 Dose: Not Given Piperacillin Sod/Tazobactam Sod (Zosyn 3.375gm Ivpb (Pre-Docked)) 50 mls @ 100 mls/hr IVPB Q8H-IV [facility] PRN Reason: Protocol Last Admin: 08/25/16 09:33 Dose: 100 mls/hr Dextrose/Sodium Chloride (D5-1/2ns -) 1,000 mls @ 83 mls/hr IV ASDIR [facility] Last Admin: 08/24/16 21:14 Dose: 83 mls/hr Insulin Aspart (Novolog Vial Sliding Scale -) 1 vial SQ ACHS [facility] PRN Reason: Protocol Last Admin: 08/25/16 06:21 Dose: 4 units Metoprolol Tartrate (Lopressor -) 50 mg PO DAILY [facility] Last Admin: 08/25/16 09:33 Dose: 50 mg Nicotine (Nicoderm Patch -) 14 mg TD DAILY [facility] Last Admin: 08/25/16 09:56 Dose: Not Given Oxycodone HCl (Roxicodone -) 10 mg PO Q6H PRN Last Admin: 08/25/16 05:47 Dose: 10 mg Pancrelipase (Creon Dr 6,000 Units Capsule) 2 cap PO TIDCM [facility] Last Admin: 08/24/16 17:07 Dose: 2 cap Ranitidine HCl (Zantac -) 150 mg PO DAILY [facility] Last Admin: 08/25/16 09:33 Dose: 150 mg - Objective Vital Signs: Vital Signs Temperature 98.6 F 08/25/16 06:54 Pulse Rate 92 H 08/25/16 06:54 Respiratory Rate 20 08/25/16 06:54 Blood Pressure 168/91 08/25/16 06:54 O2 Sat by Pulse Oximetry (%) 98 08/24/16 21:00 Constitutional: Yes: No Distress Eyes: Yes: Conjunctiva Clear Cardiovascular: Yes: Regular Rate and Rhythm, S1, S2 Respiratory: Yes: CTA Bilaterally Gastrointestinal: Yes: Normal Bowel Sounds, Soft. No: Tenderness Extremities: Yes: Other (R foot with dry necrotic dorsal ulcer no drainage or foul odor) Labs: CBC, BMP 08/25/16 07:20 08/25/16 07:20 Assessment/Plan Gangrene R foot Non-healing ulcer Leukocytosis, possible sepsis PVD DM Continue empiric zosyn D/C vancomycin Local wound care
[2016-08-25] MEDS: HEPARIN NA (PORCINE) 5,000 UNITS/ML 1ML VIAL SQ SCH ×2 (12:40→21:59)
[2016-08-25] MEDS: LIPASE/PROTEASE/AMYLASE 6,000 UNIT CAPSULE PO SCH ×3 (12:40→18:11)
[2016-08-25] MEDS: ACLIDINIUM BROMIDE 400 MCG/INH AERO.POWD IH SCH ×2 (12:45→23:52)
[2016-08-25] MEDS: VANCOMYCIN 1 GRAM (PRE-DOCKED) 250 ML IVPB SCH (12:57)
[2016-08-25] MEDS ORDERED: PT OWN MED DRAWER 7, Y5N ONE (13:00)
[2016-08-25] MEDS: DOCUSATE SODIUM 100 MG CAPSULE (FP) PO SCH ×2 (13:07→21:59)
[2016-08-25] MEDS: COLLAGENASE CLOSTRIDIUM HIST. 30 GRAMS TUBE TP SCH (13:08)
--- NOTE | 2016-08-25 13:25 | PN ---
Progress Note, Physician History of Present Illness: Pt seen and examined. She complains of leg discomfort. She is awake and alert. - Current Medication List Current Medications: Active Medications Aclidinium [place] (Tudorza -) 1 puff IH BID [facility] Last Admin: 08/25/16 12:45 Dose: Not Given Aspirin (Asa -) 81 mg PO DAILY [facility] Last Admin: 08/25/16 09:55 Dose: 81 mg Atorvastatin Calcium (Lipitor -) 20 mg PO HS [facility] Last Admin: 08/24/16 21:12 Dose: 20 mg Collagenase (Santyl -) 1 applic TP DAILY [facility] Last Admin: 08/25/16 13:08 Dose: 1 applic Docusate Sodium (Colace -) 100 mg PO BID [facility] Last Admin: 08/25/16 13:07 Dose: 100 mg Gabapentin (Neurontin -) 300 mg PO TID [facility] Last Admin: 08/25/16 05:48 Dose: 300 mg Heparin Sodium (Porcine) (Heparin -) 5,000 unit SQ BID [facility] Last Admin: 08/25/16 12:40 Dose: 5,000 unit Hydromorphone HCl (Dilaudid Injection -) 1 mg IVPB Q6H PRN PRN Reason: PAIN Last Admin: 08/24/16 21:18 Dose: 1 mg Piperacillin Sod/Tazobactam Sod (Zosyn 3.375gm Ivpb (Pre-Docked)) 50 mls @ 100 mls/hr IVPB Q8H-IV [facility] PRN Reason: Protocol Last Admin: 08/25/16 09:33 Dose: 100 mls/hr Dextrose/Sodium Chloride (D5-1/2ns -) 1,000 mls @ 83 mls/hr IV ASDIR [facility] Last Admin: 08/24/16 21:14 Dose: 83 mls/hr Insulin Aspart (Novolog Vial Sliding Scale -) 1 vial SQ ACHS [facility] PRN Reason: Protocol Last Admin: 08/25/16 12:40 Dose: 2 units Metoprolol Tartrate (Lopressor -) 50 mg PO DAILY [facility] Last Admin: 08/25/16 09:33 Dose: 50 mg Nicotine (Nicoderm Patch -) 14 mg TD DAILY [facility] Last Admin: 08/25/16 09:56 Dose: Not Given Oxycodone HCl (Roxicodone -) 10 mg PO Q6H PRN Last Admin: 08/25/16 05:47 Dose: 10 mg Pancrelipase (Creon Dr 6,000 Units Capsule) 2 cap PO TIDCM [facility] Last Admin: 08/25/16 13:07 Dose: 2 cap Ranitidine HCl (Zantac -) 150 mg PO DAILY [facility] Last Admin: 08/25/16 09:33 Dose: 150 mg - Objective Vital Signs: Vital Signs Temperature 98.6 F 08/25/16 06:54 Pulse Rate 92 H 08/25/16 06:54 Respiratory Rate 20 08/25/16 06:54 Blood Pressure 168/91 08/25/16 06:54 O2 Sat by Pulse Oximetry (%) 98 08/24/16 21:00 Constitutional: Yes: Calm Eyes: Yes: Conjunctiva Clear HENT: Yes: Atraumatic Neck: Yes: Supple Cardiovascular: Yes: Regular Rate and Rhythm, S1, S2 Respiratory: Yes: CTA Bilaterally Gastrointestinal: Yes: Soft Genitourinary: Yes: WNL Musculoskeletal: Yes: WNL Extremities: Yes: Other (leg gangrene) Edema: No Neurological: Yes: Oriented Psychiatric: Yes: Oriented Labs: CBC, BMP 08/25/16 07:20 08/25/16 07:20 Problem List - Problems (1) Hypertension Code(s): I10 - ESSENTIAL (PRIMARY) HYPERTENSION (2) Ischemic foot Code(s): I99.8 - OTHER DISORDER OF CIRCULATORY SYSTEM (3) Tobacco dependence Code(s): F17.200 - NICOTINE DEPENDENCE, UNSPECIFIED, UNCOMPLICATED (4) 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 Code(s): E11.59 - TYPE 2 DIABETES MELLITUS WITH OTH CIRCULATORY COMPLICATIONS I70.209 - UNSP ATHSCL [place] ARTERIES OF EXTREMITIES, UNSP EXTREMITY (5) Abdominal pain Code(s): R10.9 - UNSPECIFIED ABDOMINAL PAIN Qualifiers: Abdominal location: unspecified location Qualified Code(s): R10.9 - Unspecified abdominal pain Assessment/Plan Current Medications Generic Name Dose Route Start Last Admin Trade Name Freq PRN Reason Stop Dose Admin Aclidinium [place] 1 puff 08/22/16 22:00 08/25/16 12:45 Tudorza - IH Not Given BID [facility] Aspirin 81 mg 08/23/16 10:00 08/25/16 09:55 Asa - PO 81 mg DAILY [facility] Administration Atorvastatin Calcium 20 mg 08/22/16 22:00 08/24/16 21:12 Lipitor - PO 20 mg HS [facility] Administration Collagenase 1 applic 08/23/16 10:00 08/25/16 13:08 Santyl - TP 1 applic DAILY [facility] Administration Docusate Sodium 100 mg 08/22/16 22:00 08/25/16 13:07 Colace - PO 100 mg BID [facility] Administration Gabapentin 300 mg 08/22/16 22:00 08/25/16 05:48 Neurontin - PO 300 mg TID [facility] Administration Heparin Sodium (Porcine) 5,000 unit 08/22/16 22:00 08/25/16 12:40 Heparin - SQ 5,000 unit BID [facility] Administration Hydromorphone HCl 1 mg 08/24/16 10:46 08/24/16 21:18 Dilaudid Injection - IVPB 1 mg Q6H PRN Administration PAIN Piperacillin Sod/Tazobactam Sod 50 mls @ 100 mls/hr 08/22/16 18:00 08/25/16 09: 33 Zosyn 3.375gm Ivpb (Pre-Docked) IVPB 100 mls/hr Q8H-IV [facility] Administration Protocol Dextrose/Sodium Chloride 1,000 mls @ 83 mls/hr 08/23/16 20:45 08/24/16 21:14 D5-1/2ns - IV 83 mls/hr ASDIR [facility] Administration Insulin Aspart 1 vial 08/22/16 22:00 08/25/16 12:40 Novolog Vial Sliding Scale - SQ 2 units ACHS [facility] Administration Protocol Metoprolol Tartrate 50 mg 08/23/16 10:00 08/25/16 09:33 Lopressor - PO 50 mg DAILY [facility] Administration Nicotine 14 mg 08/23/16 10:00 08/25/16 09:56 Nicoderm Patch - TD Not Given DAILY [facility] Oxycodone HCl 10 mg 08/23/16 20:43 08/25/16 05:47 Roxicodone - PO 10 mg Q6H PRN Administration Pancrelipase 2 cap 08/23/16 08:00 08/25/16 13:07 Tommie Fonseca 6,000 Units Capsule PO 2 cap TIDCM [facility] Administration Ranitidine HCl 150 mg 08/23/16 10:00 08/25/16 09:33 Zantac - PO 150 mg DAILY [facility] Administration chart reviewed labs reviewed meds reviewed Impression 1. elevated creatinine likely from dehydration 2. PVD 3. active smoker 4. DM 5. HTN Plan - renal function is stable - fluids while NPO - will follow PRN as renal function has stabilized - stop diclofenac and avoid nsaids as they can contribute to renal failure - proteinuria workup in office as outpt - vascular surgery follow up Dr Kitchen
--- NOTE | 2016-08-25 17:59 | PN ---
Progress Note, Physician Chief Complaint: HAD D/W FAMILY WANTS TO KNOW IF SURGEON WILL "SAVE HER FOOT" - Current Medication List Current Medications: Active Medications Aclidinium [place] (Tudorza -) 1 puff IH BID [facility] Last Admin: 08/25/16 12:45 Dose: Not Given Aspirin (Asa -) 81 mg PO DAILY [facility] Last Admin: 08/25/16 09:55 Dose: 81 mg Atorvastatin Calcium (Lipitor -) 20 mg PO HS [facility] Last Admin: 08/24/16 21:12 Dose: 20 mg Collagenase (Santyl -) 1 applic TP DAILY [facility] Last Admin: 08/25/16 13:08 Dose: 1 applic Docusate Sodium (Colace -) 100 mg PO BID [facility] Last Admin: 08/25/16 13:07 Dose: 100 mg Gabapentin (Neurontin -) 300 mg PO TID [facility] Last Admin: 08/25/16 15:26 Dose: 300 mg Heparin Sodium (Porcine) (Heparin -) 5,000 unit SQ BID [facility] Last Admin: 08/25/16 12:40 Dose: 5,000 unit Hydromorphone HCl (Dilaudid Injection -) 1 mg IVPB Q6H PRN PRN Reason: PAIN Last Admin: 08/24/16 21:18 Dose: 1 mg Piperacillin Sod/Tazobactam Sod (Zosyn 3.375gm Ivpb (Pre-Docked)) 50 mls @ 100 mls/hr IVPB Q8H-IV [facility] PRN Reason: Protocol Last Admin: 08/25/16 09:33 Dose: 100 mls/hr Dextrose/Sodium Chloride (D5-1/2ns -) 1,000 mls @ 83 mls/hr IV ASDIR [facility] Last Admin: 08/24/16 21:14 Dose: 83 mls/hr Insulin Aspart (Novolog Vial Sliding Scale -) 1 vial SQ ACHS [facility] PRN Reason: Protocol Last Admin: 08/25/16 17:45 Dose: 4 units Metoprolol Tartrate (Lopressor -) 50 mg PO DAILY [facility] Last Admin: 08/25/16 09:33 Dose: 50 mg Nicotine (Nicoderm Patch -) 14 mg TD DAILY [facility] Last Admin: 08/25/16 09:56 Dose: Not Given Oxycodone HCl (Roxicodone -) 10 mg PO Q6H PRN Last Admin: 08/25/16 15:25 Dose: 10 mg Pancrelipase (Creon Dr 6,000 Units Capsule) 2 cap PO TIDCM [facility] Last Admin: 08/25/16 13:07 Dose: 2 cap Ranitidine HCl (Zantac -) 150 mg PO DAILY [facility] Last Admin: 08/25/16 09:33 Dose: 150 mg - Objective Vital Signs: Vital Signs Temperature 98 F 08/25/16 13:45 Pulse Rate 97 H 08/25/16 13:45 Respiratory Rate 20 08/25/16 13:45 Blood Pressure 160/85 08/25/16 13:45 O2 Sat by Pulse Oximetry (%) 98 08/24/16 21:00 Cardiovascular: Yes: WNL Respiratory: Yes: WNL Gastrointestinal: Yes: WNL Edema: No Wound/Incision: Yes: Dressing Dry and Intact Labs: CBC, BMP 08/25/16 07:20 08/25/16 07:20 Problem List - Problems (1) Hypertension Code(s): I10 - ESSENTIAL (PRIMARY) HYPERTENSION (2) Ischemic foot Code(s): I99.8 - OTHER DISORDER OF CIRCULATORY SYSTEM (3) 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 Code(s): E11.59 - TYPE 2 DIABETES MELLITUS WITH OTH CIRCULATORY COMPLICATIONS I70.209 - UNSP ATHSCL [place] ARTERIES OF EXTREMITIES, UNSP EXTREMITY Assessment/Plan (1) Ischemic foot Code(s): I99.8 - OTHER DISORDER OF CIRCULATORY SYSTEM (2) Abdominal pain Code(s): R10.9 - UNSPECIFIED ABDOMINAL PAIN Qualifiers: Abdominal location: unspecified location Qualified Code(s): R10.9 - Unspecified abdominal pain (3) Tobacco dependence Code(s): F17.200 - NICOTINE DEPENDENCE, UNSPECIFIED, UNCOMPLICATED (4) 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
[2016-08-25] MEDS: DEXTROSE 5%-0.45% SALINE 1,000 ML IV SCH (18:10)
--- NOTE | 2016-08-25 19:26 | PN ---
Progress Note (short form) - Note Progress Note: Vascular surgery Pt seen and examined. Right foot gangrene Still has pain. Spoke to sister at length. Will try angiogram again amna -- bringing in new device to open pedal vessels amna. If successful pt should have more blood flow to foot and can then go to HBO. If we cannot open her blood vessels pt will need a bka. Sister understands this. NPO past midnight Jsoe Manzo DO
[2016-08-25] MEDS: HYDROmorphone HCL CARPU-JECT 1 MG/1 ML DISP.SYRIN IVPB PRN (20:03)
[2016-08-25] MEDS: ATORVASTATIN CA 20 MG TABLET (FP) PO SCH (21:58)
[2016-08-26] MEDS: PIPERACILLIN/TAZOB 3.375 GM 50 ML IVPB SCH ×3 (02:15→17:31)
[2016-08-26] MEDS: HYDROmorphone HCL CARPU-JECT 1 MG/1 ML DISP.SYRIN IVPB PRN ×2 (03:56→23:14)
[2016-08-26] MEDS: INSULIN SLIDING SCALE (NOVOLOG) 1 VIAL SQ SCH ×4 (06:25→22:43)
[2016-08-26] MEDS: GABAPENTIN 300 MG CAPSULE (FP) PO SCH ×3 (06:25→21:06)
[2016-08-26] MEDS ORDERED: PT OWN MED DRAWER 7, Y5N ONE (07:47)
[2016-08-26] MEDS ORDERED: LIDOCAINE HCL 1%, 10 MG/ML (20ML VIAL) ONE (08:22)
[2016-08-26] MEDS ORDERED: HEPARIN NA (PORCINE) 5,000 UNITS/ML 1ML VIAL ONE (08:22)
[2016-08-26] MEDS: METOPROLOL TARTRATE 50 MG TABLET (FP) PO SCH (08:44)
[2016-08-26] MEDS: LIPASE/PROTEASE/AMYLASE 6,000 UNIT CAPSULE PO SCH ×3 (08:46→17:32)
[2016-08-26 08:50] LABS: BASOPHIL 1.2 % (0-2.0); MCH 29.5 pg (25.7-33.7); MCHC 33.3 g/dl (32.0-36.0); MEAN CELL VOLUME 88.8 fl (80-96); MEAN PLT VOLUME 7.3 fl (7.5-11.1); NEUTROPHILS 68.8 % (42.8-82.8); PLATELET COUNT 713 K/MM3 (134-434); RDW 14.1 % (11.6-15.6); WHITE BLOOD COUNT 9.9 K/mm3 (4.0-10.0)
[2016-08-26] MEDS ORDERED: MIDAZOLAM HCL 2 MG/2 ML SINGLE DOSE VIAL ONE ×2 (09:07→10:51)
[2016-08-26 09:18] LABS: ALBUMIN 1.3 g/dl (3.4-5.0); ALK PHOS 505 U/L (45-117); ANION GAP 8 (8-16); BILIRUBIN,TOTAL 0.3 mg/dL (0.2-1.0); CALCIUM 8.5 mg/dL (8.5-10.1); CO2 27 mmol/L (21-32); CREATININE 0.7 mg/dL (0.55-1.02); GLUCOSE,RANDOM 187 mg/dL (74-106); MAGNESIUM 1.8 mg/dL (1.8-2.4); SGOT/AST 18 U/L (15-37); SGPT/ALT 10 U/L (12-78); TOT PROT 5.1 g/dl (6.4-8.2)
[2016-08-26] MEDS ORDERED: HYDROmorphone HCL CARPU-JECT 1 MG/1 ML DISP.SYRIN IVPUSH PRN (09:23)
[2016-08-26] MEDS ORDERED: ceFAZolin SODIUM 1 GM VIAL IVPB ONE (09:45)
[2016-08-26] MEDS ORDERED: LIDOCAINE HCL 1%, 10 MG/ML (20ML VIAL) IJ ONE (09:48)
[2016-08-26] MEDS: COLLAGENASE CLOSTRIDIUM HIST. 30 GRAMS TUBE TP SCH (10:00)
[2016-08-26] MEDS: DOCUSATE SODIUM 100 MG CAPSULE (FP) PO SCH ×2 (10:00→21:06)
[2016-08-26] MEDS: ASPIRIN 81 MG CHEWABLE TABLETS PO SCH (10:00)
[2016-08-26] MEDS: HEPARIN NA (PORCINE) 5,000 UNITS/ML 1ML VIAL SQ SCH ×2 (10:00→21:08)
[2016-08-26] MEDS ORDERED: HEPARIN INFUSION - 500 ML IVPB ONE (10:37)
[2016-08-26] MEDS ORDERED: PROPOFOL 20 ML ONE (10:47)
[2016-08-26] MEDS ORDERED: ALTEPLASE 50MG 25 MG in SODIUM CHLORIDE 250 ML IVPB ONE (11:00)
[2016-08-26] MEDS ORDERED: HYDROmorphone HCL CARPU-JECT 2 MG/1 ML DISP.SYRIN IVPUSH ONE ×2 (11:30→13:45)
[2016-08-26] MEDS ORDERED: HYDROmorphone HCL CARPU-JECT 2 MG/1 ML DISP.SYRIN ONE ×2 (11:33→13:05)
[2016-08-26] MEDS ORDERED: HYDROmorphone HCL CARPU-JECT 1 MG/1 ML DISP.SYRIN IVPUSH ONE ×2 (11:40→13:12)
--- NOTE | 2016-08-26 11:54 | OP ---
Operative Note - Note: Operative Date: 08/26/16 Pre-Operative Diagnosis: Right foot gangrene Operation: RLE angiogram, tibial artery angioplasty, thrombolysis Findings: Clot in popliteal artery, sfa Post-Operative Diagnosis: Same as Pre-op Surgeon: Jose Manzo Anesthesia: Fractional Estimated Blood Loss (mls): 50 Operative Report Dictated: Yes
[2016-08-26] MEDS: NICOTINE 14 MG/24 HOURS TOPICAL PATCH TD SCH (12:38)
[2016-08-26] MEDS: ACLIDINIUM BROMIDE 400 MCG/INH AERO.POWD IH SCH ×2 (12:39→21:56)
[2016-08-26] MEDS: RANITIDINE HCL 150 MG TABLET (FP) PO SCH (12:40)
[2016-08-26] MEDS ORDERED: PIPERACILLIN/TAZOB 3.375 GM/50 ML PRE-DOCKED IVPB ONE (13:13)
[2016-08-26] MEDS: DEXTROSE 5%-0.45% SALINE 1,000 ML IV SCH (13:22)
--- NOTE | 2016-08-26 15:06 | CONSULT ---
Consultation: HISTORY OF PRESENT ILLNESS: The patient is a 51 year old female with significant PMH of HTN, DM, RLE stent, Asthma, Gallstones, chronic pancreatitis & current 1/2ppd smoker who presented to ED with right wound infection & pain. Patient stated she had right foot pain , redness & swelling s/p right toe amputation 1 month ago (4th & 5th toes). Lower extremity CTA w/ runoff performed & showed: Bilateral lower extremity arterial atherosclerotic disease w/ occluded origin of the right TAISHA Vascular surgery was consulted & performed a right lower extremity angiogram, Posterior tibial artery angioplasty on August 22. Patient continued to have pain so right tibial artery angioplasty, thrombolysis were performed this morning with a crosser device to help open pedal vessels. Patient was sent to ICU on alteplase & Heparin. REVIEW OF SYSTEMS: CONSTITUTIONAL: Absent: fever, chills, diaphoresis, generalized weakness, malaise, loss of appetite, weight change HEENT: Absent: rhinorrhea, nasal congestion, throat pain, throat swelling, difficulty swallowing, mouth swelling, ear pain, eye pain, visual changes CARDIOVASCULAR: Absent: chest pain, syncope, palpitations, irregular heart rate, lightheadedness , peripheral edema RESPIRATORY: Absent: cough, shortness of breath, dyspnea with exertion, orthopnea, wheezing, stridor, hemoptysis GASTROINTESTINAL: Absent: abdominal pain, abdominal distension, nausea, vomiting, diarrhea, constipation, melena, hematochezia GENITOURINARY: Absent: dysuria, frequency, urgency, hesitancy, hematuria, flank pain, genital pain MUSCULOSKELETAL: Absent: myalgia, arthralgia, joint swelling, back pain, neck pain SKIN: Absent: rash, itching, pallor HEMATOLOGIC/IMMUNOLOGIC: Absent: easy bleeding, easy bruising, lymphadenopathy, frequent infections ENDOCRINE: Absent: unexplained weight gain, unexplained weight loss, heat intolerance, cold intolerance NEUROLOGIC: Absent: headache, focal weakness or paresthesias, dizziness, unsteady gait, seizure, mental status changes, bladder or bowel incontinence PSYCHIATRIC: Absent: anxiety, depression, suicidal or homicidal ideation, hallucinations. PHYSICAL EXAMINATION Vital Signs 08/26/16 08/26/16 08/26/16 13:15 13:30 13:45 Temperature Pulse Rate 76 74 76 Respiratory 16 16 16 Rate Blood Pressure 146/86 160/90 162/94 O2 Sat by Pulse 100 100 100 Oximetry (%) 08/26/16 08/26/16 08/26/16 14:00 14:15 14:30 Temperature 98.3 F 98.7 F Pulse Rate 76 74 81 Respiratory 16 16 12 Rate Blood Pressure 162/88 160/90 164/90 O2 Sat by Pulse 100 Oximetry (%) GENERAL: Awake, alert, and fully oriented, in no acute distress. Mildly sedated post-anaesthesia. HEENT: Atraumatic, EOMI, PERRLA, Moist membranes, no lymphadenopathy noted LUNGS: Breath sounds equal, clear to auscultation bilaterally. No wheezes, and no crackles. No accessory muscle use. HEART: Regular rate and rhythm, normal S1 and S2 without murmur, rub or gallop ABDOMEN: Soft, nontender, not distended, normoactive bowel sounds UPPER EXTREMITIES: 2+ pulses, warm, well-perfused. No cyanosis. No clubbing. Cap refill <2 seconds. No peripheral edema LOWER EXTREMITIES: minimally palpable pedal pulses in bilateral LE (L>R), but less swollen, less tender & less erythematous than on admission. clean & dry dressing covering right forefoot wound. NEUROLOGICAL: Cranial nerves II-XII intact. Normal speech. Gait not observed. PSYCHIATRIC: Cooperative. Good eye contact. Appropriate mood and affect. SKIN: as above Laboratory Results 08/26/16 08/26/16 08:05 08:05 WBC 9.9 RBC 3.53 L Hgb 10.4 L Hct 31.3 L MCV 88.8 MCHC 33.3 RDW 14.1 Plt Count 713 H MPV 7.3 L Neutrophils % 68.8 Lymphocytes % 18.5 Monocytes % 8.5 Eosinophils % 3.0 Basophils % 1.2 Sodium 141 Potassium 4.9 Chloride 106 Carbon Dioxide 27 Anion Gap 8 BUN 6 L Creatinine 0.7 Creat Clearance w eGFR > 60 POC Glucometer Random Glucose 187 H Calcium 8.5 Magnesium 1.8 Total Bilirubin 0.3 D AST 18 ALT 10 L Alkaline Phosphatase 505 H Total Protein 5.1 L Albumin 1.3 L Active Medications Generic Name Dose Route Start Last Admin Trade Name Freq PRN Reason Stop Dose Admin Aclidinium [place] 1 puff 08/22/16 22:00 08/26/16 12:39 Tudorza - IH Not Given BID [facility] Aspirin 81 mg 08/23/16 10:00 08/26/16 10:00 Asa - PO Not Given DAILY [facility] Atorvastatin Calcium 20 mg 08/22/16 22:00 08/25/16 21:58 Lipitor - PO 20 mg HS [facility] Administration Collagenase 1 applic 08/23/16 10:00 08/26/16 10:00 Santyl - TP Not Given DAILY [facility] Docusate Sodium 100 mg 08/22/16 22:00 08/26/16 10:00 Colace - PO Not Given BID [facility] Gabapentin 300 mg 08/22/16 22:00 08/26/16 06:25 Neurontin - PO Not Given TID [facility] Heparin Sodium (Porcine) 5,000 unit 08/22/16 22:00 08/26/16 10:00 Heparin - SQ Not Given BID [facility] Hydromorphone HCl 1 mg 08/24/16 10:46 08/26/16 03:56 Dilaudid Injection - IVPB 1 mg Q6H PRN Administration PAIN Hydromorphone HCl 1 mg 08/26/16 09:23 Dilaudid Injection - IVPUSH 08/29/16 09:24 [id number] PRN PAIN Piperacillin Sod/Tazobactam Sod 50 mls @ 100 mls/hr 08/22/16 18:00 08/26/16 12: 40 Zosyn 3.375gm Ivpb (Pre-Docked) IVPB Not Given Q8H-IV [facility] Protocol Alteplase, Recombinant 25 mg/ 250 mls @ 10 mls/hr 08/26/16 11:00 Sodium Chloride IVPB 08/27/16 11:59 ONCE ONE Insulin Aspart 1 vial 08/22/16 22:00 08/26/16 12:40 Novolog Vial Sliding Scale - SQ Not Given ACHS [facility] Protocol Metoprolol Tartrate 50 mg 08/23/16 10:00 08/26/16 08:44 Lopressor - PO 50 mg DAILY [facility] Administration Nicotine 14 mg 08/23/16 10:00 08/26/16 12:38 Nicoderm Patch - TD Not Given DAILY [facility] Oxycodone HCl 10 mg 08/23/16 20:43 08/25/16 15:25 Roxicodone - PO 10 mg Q6H PRN Administration Pancrelipase 2 cap 08/23/16 08:00 08/26/16 08:[address] 6,000 Units Capsule PO Not Given TIDCM [facility] Ranitidine HCl 150 mg 08/23/16 10:00 08/26/16 12:40 Zantac - PO Not Given DAILY [facility] ASSESSMENT/PLAN: 51 year old female with significant PMH of HTN, DM, RLE stent, Asthma, Gallstones, chronic pancreatitis & current 1/2ppd smoker who presented to ICU s/ p right tibial artery angioplasty, thrombolysis this AM to improve stenosis of pedal vessels. #Right foot gangrene, ischemia -S/p angioplasty, thrombectomy this AM -currently on Heparin with Alteplase running directly into RLE -right foot still may require amputation, requires close monitoring & likely will require further surgical intervention tomorrow -keep patient NPO -continue Zosyn -Dilaudid pain management -wound care, dressing, collagenase as per surgery -ID consulted & following -Vascular Surgery consulted & following #Chronic Pancreatitis -continue Creon -Lipase/amylase normal -elevated ALP (Hx of gallstones) -GI Consult appreciated #DM -ISS, FS BGM -ADA Diet -continue gabapentin -endocrine consult appreciated #HTN/HLD -continue Lopressor, Lipitor, [id number] #Acute Kidney injury, resolved -continue IVF as elevated creatinine was likely secondary to dehydration -proteinuria workup as outpatient -Nephrology consult appreciated -avoid nephrotoxic meds Prophylaxis/FEN -Heparin/Alteplase, Zantac, Nicotine patch -IVF NS running with alteplase, monitor electrolytes, keep NPO Visit type - Emergency Visit Emergency Visit: Yes ED Registration Date: 08/21/16 Care time: The patient presented to the Emergency Department on the above date and was hospitalized for further evaluation of their emergent condition. - New Patient This patient is new to me today: Yes Date on this admission: 08/26/16 - Critical Care Critical Care patient: Yes Total Critical Care Time (in minutes): 45 Critical Care Statement: The care of this patient involved high complexity decision making to prevent further life threatening deterioration of the patient 's condition and/or to evalute & treat vital organ system(s) failure or risk of failure.
[2016-08-26] MEDS ORDERED: ENALAPRILAT DIHYDRATE 1.25 MG/1 ML VIAL IVPB ONE (16:07)
--- NOTE | 2016-08-26 16:14 | PN ---
Progress Note, Physician Chief Complaint: POST-OP, AWAITING DR SEVILLA OPERATIVE NOTE PATIENT AWAKE ALERT IN ICU NAD HOPING FOR GOOD NEWS ABOUT THE PROCEDURE TO AVOID AMPUTATION. - Current Medication List Current Medications: Active Medications Aclidinium [place] (Tudorza -) 1 puff IH BID [facility] Last Admin: 08/26/16 12:39 Dose: Not Given Aspirin (Asa -) 81 mg PO DAILY [facility] Last Admin: 08/26/16 10:00 Dose: Not Given Atorvastatin Calcium (Lipitor -) 20 mg PO HS [facility] Last Admin: 08/25/16 21:58 Dose: 20 mg Collagenase (Santyl -) 1 applic TP DAILY [facility] Last Admin: 08/26/16 10:00 Dose: Not Given Docusate Sodium (Colace -) 100 mg PO BID [facility] Last Admin: 08/26/16 10:00 Dose: Not Given Gabapentin (Neurontin -) 300 mg PO TID [facility] Last Admin: 08/26/16 06:25 Dose: Not Given Heparin Sodium (Porcine) (Heparin -) 5,000 unit SQ BID [facility] Last Admin: 08/26/16 10:00 Dose: Not Given Hydromorphone HCl (Dilaudid Injection -) 1 mg IVPB Q6H PRN PRN Reason: PAIN Last Admin: 08/26/16 03:56 Dose: 1 mg Hydromorphone HCl (Dilaudid Injection -) 1 mg IVPUSH [id number] PRN PRN Reason: PAIN Stop: 08/29/16 09:24 Hydromorphone HCl (Dilaudid Injection -) 2 mg IVPUSH Q4H PRN PRN Reason: PAIN Piperacillin Sod/Tazobactam Sod (Zosyn 3.375gm Ivpb (Pre-Docked)) 50 mls @ 100 mls/hr IVPB Q8H-IV [facility] PRN Reason: Protocol Last Admin: 08/26/16 12:40 Dose: Not Given Alteplase, Recombinant 25 mg/ (Sodium Chloride) 250 mls @ 10 mls/hr IVPB ONCE ONE Stop: 08/27/16 11:59 Insulin Aspart (Novolog Vial Sliding Scale -) 1 vial SQ ACHS [facility] PRN Reason: Protocol Last Admin: 08/26/16 12:40 Dose: Not Given Metoprolol Tartrate (Lopressor -) 50 mg PO DAILY [facility] Last Admin: 08/26/16 08:44 Dose: 50 mg Nicotine (Nicoderm Patch -) 14 mg TD DAILY [facility] Last Admin: 08/26/16 12:38 Dose: Not Given Oxycodone HCl (Roxicodone -) 10 mg PO Q6H PRN Last Admin: 08/25/16 15:25 Dose: 10 mg Pancrelipase (Creon Dr 6,000 Units Capsule) 2 cap PO TIDCM [facility] Last Admin: 08/26/16 08:46 Dose: Not Given Ranitidine HCl (Zantac -) 150 mg PO DAILY [facility] Last Admin: 08/26/16 12:40 Dose: Not Given - Objective Vital Signs: Vital Signs Temperature 98.7 F 08/26/16 14:30 Pulse Rate 81 08/26/16 14:30 Respiratory Rate 12 08/26/16 14:30 Blood Pressure 164/90 08/26/16 14:30 O2 Sat by Pulse Oximetry (%) 97 08/26/16 14:56 Constitutional: Yes: Mild Distress Eyes: Yes: WNL HENT: Yes: WNL Neck: Yes: WNL Cardiovascular: Yes: WNL Respiratory: Yes: WNL Gastrointestinal: Yes: WNL Genitourinary: Yes: WNL Musculoskeletal: Yes: Muscle Pain, Muscle Weakness Extremities: Yes: Deformity, Other Edema: No Peripheral Pulses WNL: Yes Integumentary: Yes: Pressure Ulcer Wound/Incision: Yes: Dressing Dry and Intact, Unapproximated Neurological: Yes: Pre-Existing Deficit ...Motor Strength: RLE Psychiatric: Yes: Other Labs: CBC, BMP 08/26/16 08:05 08/26/16 08:05 Problem List - Problems (1) Ischemic foot Code(s): I99.8 - OTHER DISORDER OF CIRCULATORY SYSTEM (2) Abdominal pain Code(s): R10.9 - UNSPECIFIED ABDOMINAL PAIN Qualifiers: Abdominal location: unspecified location Qualified Code(s): R10.9 - Unspecified abdominal pain (3) Tobacco dependence Code(s): F17.200 - NICOTINE DEPENDENCE, UNSPECIFIED, UNCOMPLICATED (4) 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
--- NOTE | 2016-08-26 16:34 | PN ---
Progress Note, Physician History of Present Illness: S/P angiogram, thrombolysis No c/o foot pain at rest No fever/ chills WBC improved - Current Medication List Current Medications: Active Medications Aclidinium [place] (Tudorza -) 1 puff IH BID [facility] Last Admin: 08/26/16 12:39 Dose: Not Given Aspirin (Asa -) 81 mg PO DAILY [facility] Last Admin: 08/26/16 10:00 Dose: Not Given Atorvastatin Calcium (Lipitor -) 20 mg PO HS [facility] Last Admin: 08/25/16 21:58 Dose: 20 mg Collagenase (Santyl -) 1 applic TP DAILY [facility] Last Admin: 08/26/16 10:00 Dose: Not Given Docusate Sodium (Colace -) 100 mg PO BID [facility] Last Admin: 08/26/16 10:00 Dose: Not Given Gabapentin (Neurontin -) 300 mg PO TID [facility] Last Admin: 08/26/16 06:25 Dose: Not Given Heparin Sodium (Porcine) (Heparin -) 5,000 unit SQ BID [facility] Last Admin: 08/26/16 10:00 Dose: Not Given Hydromorphone HCl (Dilaudid Injection -) 1 mg IVPB Q6H PRN PRN Reason: PAIN Last Admin: 08/26/16 03:56 Dose: 1 mg Hydromorphone HCl (Dilaudid Injection -) 1 mg IVPUSH [id number] PRN PRN Reason: PAIN Stop: 08/29/16 09:24 Hydromorphone HCl (Dilaudid Injection -) 2 mg IVPUSH Q4H PRN PRN Reason: PAIN Piperacillin Sod/Tazobactam Sod (Zosyn 3.375gm Ivpb (Pre-Docked)) 50 mls @ 100 mls/hr IVPB Q8H-IV [facility] PRN Reason: Protocol Last Admin: 08/26/16 12:40 Dose: Not Given Alteplase, Recombinant 25 mg/ (Sodium Chloride) 250 mls @ 10 mls/hr IVPB ONCE ONE Stop: 08/27/16 11:59 Insulin Aspart (Novolog Vial Sliding Scale -) 1 vial SQ ACHS [facility] PRN Reason: Protocol Last Admin: 08/26/16 12:40 Dose: Not Given Metoprolol Tartrate (Lopressor -) 50 mg PO DAILY [facility] Last Admin: 08/26/16 08:44 Dose: 50 mg Nicotine (Nicoderm Patch -) 14 mg TD DAILY [facility] Last Admin: 08/26/16 12:38 Dose: Not Given Oxycodone HCl (Roxicodone -) 10 mg PO Q6H PRN Last Admin: 08/25/16 15:25 Dose: 10 mg Pancrelipase (Creon Dr 6,000 Units Capsule) 2 cap PO TIDCM [facility] Last Admin: 08/26/16 08:46 Dose: Not Given Ranitidine HCl (Zantac -) 150 mg PO DAILY [facility] Last Admin: 08/26/16 12:40 Dose: Not Given - Objective Vital Signs: Vital Signs Temperature 98.7 F 08/26/16 14:30 Pulse Rate 81 08/26/16 14:30 Respiratory Rate 12 08/26/16 14:30 Blood Pressure 164/90 08/26/16 14:30 O2 Sat by Pulse Oximetry (%) 97 08/26/16 14:56 Constitutional: Yes: No Distress Eyes: Yes: Conjunctiva Clear Cardiovascular: Yes: Regular Rate and Rhythm, S1, S2 Respiratory: Yes: CTA Bilaterally Gastrointestinal: Yes: Normal Bowel Sounds, Soft. No: Tenderness Extremities: Yes: Other (R toes 1-3 less dusky + necrotic ulcer, dorsum of foot) Labs: CBC, BMP 08/26/16 08:05 08/26/16 08:05 Assessment/Plan Gangrene R foot Non-healing ulcer Leukocytosis, possible sepsis PVD DM Continue empiric zosyn Local wound care
[2016-08-26 17:34] LABS: BASOPHIL 0.7 % (0-2.0); EOSINOPHIL 3.3 % (0-4.5); MCH 29.3 pg (25.7-33.7); MCHC 33.2 g/dl (32.0-36.0); MEAN CELL VOLUME 88.3 fl (80-96); MEAN PLT VOLUME 7.2 fl (7.5-11.1); NEUTROPHILS 63.2 % (42.8-82.8); PLATELET COUNT 665 K/MM3 (134-434); RDW 13.9 % (11.6-15.6); WHITE BLOOD COUNT 9.4 K/mm3 (4.0-10.0)
[2016-08-26 18:21] LABS: ALBUMIN 1.1 g/dl (3.4-5.0); ANION GAP 10 (8-16); BILIRUBIN,TOTAL 0.1 mg/dL (0.2-1.0); CALCIUM 8.3 mg/dL (8.5-10.1); CO2 23 mmol/L (21-32); CREATININE 0.6 mg/dL (0.55-1.02); GLUCOSE,RANDOM 146 mg/dL (74-106); SGOT/AST 15 U/L (15-37); SGPT/ALT 8 U/L (12-78); TOT PROT 5.6 g/dl (6.4-8.2)
[2016-08-26 18:22] LABS: ALK PHOS 410 U/L (45-117)
--- NOTE | 2016-08-26 19:54 | CONSULT ---
Consult Consult Specialty:: Pulm/CC - History of Present Illness History of Present Illness: Pt is a 51yr old woman with PMHx of asthma, HTN, HLD and DM with associated neuropathy, arterial disease and chronic pancreatitis. She presents to the ER on 08/21 with CC of wound to rt toe with associated pain/redness and swelling x 1 week. Of note pt with amputation ~ one month ago to distal portion of 4th and 5th metatarsals. Pt found to have wbc 19.2 with Cr 1.2. CTA with significant BLE arterial disease. On 08/22 pt went for aortogram, RLE angiogram and posterior ribial artery angioplasty in setting of rt foot gangrene. Pt with continued RLE pain and infection. On 08/26 pt for RLE angiogram, tibial artery angioplasty and thrombolysis. Pt now in the ICU for post op recovery and management. Upon assessment pt on heparin and alteplase drips. Pt denies chest pain/headache/sob/ n/v/d. HR 90s, 167/93, RR14 o2 sat upper 90s. - History Source Limitations to Obtaining History: Poor Historian - Past Medical History Cardio/Vascular: Yes: HTN, Other Pulmonary: Yes: Asthma Gastrointestinal: Yes: Pancreatitis Hepatobiliary: Yes: Other (ALCOHOLISM STOPPED ONE YEAR AGO) Renal/: Yes: Other (PYLEONEPHRITIS RECENTLY AT [facility]) ...: No Endocrine: Yes: Diabetes Mellitus - Past Surgical History Past Surgical History: Yes: Cholecystectomy - Alcohol/Substance Use Hx Alcohol Use: No ( ABOVE) - Smoking History Smoking history: Current every day smoker Have you smoked in the past 12 months: Yes Aproximately how many cigarettes per day: 6 Home Medications - Allergies Allergies/Adverse Reactions: Allergies Allergy/AdvReac Type Severity Reaction Status Date / Time No Known Allergies Allergy Verified 08/21/16 10:21 - Home Medications Home Medications: Ambulatory Orders Aspirin [ASA -] 81 mg PO DAILY 05/04/15 Diclofenac Sodium [Voltaren-Xr] 100 mg PO DAILY 05/04/15 Famotidine [Pepcid] 20 mg PO DAILY #30 05/04/15 Gabapentin [Neurontin -] 300 mg PO Q8H 05/04/15 Insulin (Levemir) [Levemir Vial] 60 unit SQ DAILY 05/04/15 Insulin Lispro Protamin/Lispro [Humalog Mix 75-25 Kwikpen] 30 unit SQ BID Metformin HCl [Glucophage] 1,000 mg PO BID 05/04/15 Oxycodone HCl/Acetaminophen [Percocet 10-325 mg Tablet] 1 tab PO Q6H PRN Atorvastatin Calcium 20 mg PO HS 08/21/16 Cefdinir [Omnicef -] 300 mg PO DAILY 08/21/16 Metoprolol Tartrate 50 mg PO DAILY 08/21/16 Metronidazole [Flagyl -] 500 mg PO DAILY 08/21/16 Oxycodone HCl/Acetaminophen [Endocet 5-325 Tablet] 1 each PO DAILY 08/21/16 Tiotropium [place] [Spiriva] 1 inh PO DAILY 08/21/16 Review of Systems - Review of Systems Cardiovascular: reports: Chest Pain Physical Exam Vital Signs: Vital Signs Period Temp Pulse Resp BP Sys/Badillo Pulse Ox Last 24 Hr 98.2 F-98.8 F 74-94 12-20 146-192/83-103 97-100 Intake & Output 08/23/16 08/24/16 08/25/16 08/26/16 23:59 23:59 23:59 23:59 Intake Total 2411 2062 2029 1450 Output Total 1450 Balance 2411 2062 2029 0 Constitutional: Yes: Well Nourished, Anxious Eyes: Yes: Other (consistent with pain management) Neck: Yes: WNL Cardiovascular: Yes: S1, S2 Respiratory: Yes: Other (no adventitious breath sounds appreciated). No: Rhonchi, SOB Gastrointestinal: Yes: Normal Bowel Sounds, Tenderness (suprapubic, LUQ>RUQ) ...Rectal Exam: Yes: Deferred Renal/: Yes: Other (states she uses bedpan) Extremities: Yes: Other (ble (r>l) pain) Edema: No Peripheral Pulses WNL: Yes (faint pedal pulses on dopplar) Integumentary: Yes: Other (dry) Wound/Incision: Yes: Dressing Dry and Intact, Other (4th toe hyperpigmented) Neurological: Yes: Oriented, Other (delayed response, no focal deficits appreciated) Labs: Abnormal Lab Results 08/26/16 08/26/16 08/26/16 08:05 08:05 17:08 RBC 3.53 L 3.21 L Hgb 10.4 L 9.4 L Hct 31.3 L 28.4 L Plt Count 713 H 665 H MPV 7.3 L 7.2 L Fibrinogen Chloride BUN 6 L Random Glucose 187 H Calcium Total Bilirubin ALT 10 L Alkaline Phosphatase 505 H Total Protein 5.1 L Albumin 1.3 L 08/26/16 08/26/16 17:08 17:08 RBC Hgb Hct Plt Count MPV Fibrinogen 709.0 H Chloride 109 H BUN 6 L Random Glucose 146 H D Calcium 8.3 L Total Bilirubin 0.1 L D ALT 8 L Alkaline Phosphatase 410 H Total Protein 5.6 L Albumin 1.1 L Imaging - Results Chest X-ray: Report Reviewed, Image Reviewed X-ray: Report Reviewed Cat Scan: Report Reviewed Assessment/Plan Pt is a 51yr old woman with PMHx of asthma, HTN, HLD and DM with associated neuropathy and significant arterial disease, chronic pancreatitis. Pt now s/p tibial artery angioplasty, thrombolysis and second RLE angiogram (1st on 08/22) and in the ICU for further management. Pulm: -o2 support prn -Continue home Spiriva, additional nebulizers prn -Incentive spirometer ID: -f/u cultures -ID following -Antibiotics per ID -f/u lactic acid Vascular -Dr. Manzo following -Pulse checks q1 -Heparin/Alteplase drip/wound/surgical care per Dr. Manzo Cardiology -BP control -f/u enzymes -Consider echo -Continue statin Renal: Initially with Cr 1.2, now resolved -IVF as tolerated -Replete electrolytes prn GI: Chronic pancreatitis -Diet management/counseling -Creon Neuro -Pain management, continue home neurontin Endo: -BGM -Glycemic control Prophylactic -DVT -Continue home PPI -Nicotine patch
[2016-08-26] MEDS ORDERED: LABETALOL HCL 5 MG/1 ML (100MG/20 ML VIAL) IVPUSH STA (20:41)
[2016-08-26 20:42] LABS: MAGNESIUM 1.6 mg/dL (1.8-2.4); PHOSPHOROUS 4.1 mg/dL (2.5-4.9)
[2016-08-26] MEDS: HYDROmorphone HCL CARPU-JECT 2 MG/1 ML DISP.SYRIN IVPUSH PRN (20:47)
[2016-08-26] MEDS: ATORVASTATIN CA 20 MG TABLET (FP) PO SCH (21:06)
[2016-08-26] MEDS ORDERED: MAGNESIUM SULF 50% (8.12 MEQ/2 ML-1 GM VIAL) IVPB ONE (21:40)
[2016-08-27] LABS: BASOPHIL 0.6 % (0-2.0); EOSINOPHIL 1.5 % (0-4.5); MCH 28.2 pg (25.7-33.7); MCHC 31.9 g/dl (32.0-36.0); MEAN CELL VOLUME 88.5 fl (80-96); MEAN PLT VOLUME 7.3 fl (7.5-11.1); NEUTROPHILS 81.4 % (42.8-82.8); PLATELET COUNT 656 K/MM3 (134-434); RDW 14.2 % (11.6-15.6); WHITE BLOOD COUNT 12.5 K/mm3 (4.0-10.0)
[2016-08-27 00:22] LABS: ALBUMIN 1.2 g/dl (3.4-5.0); ALK PHOS 406 U/L (45-117); ANION GAP 12 (8-16); BILIRUBIN,TOTAL 0.1 mg/dL (0.2-1.0); CALCIUM 8.2 mg/dL (8.5-10.1); CO2 22 mmol/L (21-32); CREATININE 0.7 mg/dL (0.55-1.02); GLUCOSE,RANDOM 156 mg/dL (74-106); SGOT/AST 15 U/L (15-37); SGPT/ALT 8 U/L (12-78); TOT PROT 5.5 g/dl (6.4-8.2)
[2016-08-27] MEDS ORDERED: ONDANSETRON 4 MG/2 ML VIAL IVPUSH ONE (00:59)
[2016-08-27] MEDS: HYDROmorphone HCL CARPU-JECT 2 MG/1 ML DISP.SYRIN IVPUSH PRN ×2 (01:05→05:05)
[2016-08-27] MEDS: PIPERACILLIN/TAZOB 3.375 GM 50 ML IVPB SCH (01:19)
[2016-08-27] MEDS ORDERED: ALBUTEROL SO4 0.083% IH SOL 2.5 MG/3 ML VIAL.NEB. NEB PRN (05:55)
[2016-08-27 06:15] LABS: INR 1.16 (0.82-1.09); PROTHROMBIN TIME (PATIENT) 12.8 SEC (9.98-11.88)
[2016-08-27 06:18] LABS: ACTIVATED PTT 35.5 SECONDS (26.9-34.4)
[2016-08-27] MEDS: GABAPENTIN 300 MG CAPSULE (FP) PO SCH ×3 (07:02→21:52)
[2016-08-27 07:06] LABS: EOSINOPHIL 1.4 % (0-4.5); MCHC 32.7 g/dl (32.0-36.0); MEAN CELL VOLUME 88.8 fl (80-96); MEAN PLT VOLUME 7.2 fl (7.5-11.1); NEUTROPHILS 75.5 % (42.8-82.8); PLATELET COUNT 601 K/MM3 (134-434); RDW 14.1 % (11.6-15.6)
[2016-08-27 07:06] LABS: MAGNESIUM 1.8 mg/dL (1.8-2.4); PHOSPHOROUS 4.9 mg/dL (2.5-4.9)
--- NOTE | 2016-08-27 08:00 | PN ---
Progress Note, Physician Chief Complaint: ID Stable post angioplasty Given Zosyn now day 4 therapy Never febrile - Current Medication List Current Medications: Active Medications Aclidinium [place] (Tudorza -) 1 puff IH BID [facility] Last Admin: 08/26/16 21:56 Dose: 1 puff Albuterol Sulfate (Ventolin 0.083% Nebulizer Soln -) 1 amp NEB Q4H PRN PRN Reason: SHORT OF BREATH/WHEEZING Aspirin (Asa -) 81 mg PO DAILY [facility] Last Admin: 08/26/16 10:00 Dose: Not Given Atorvastatin Calcium (Lipitor -) 20 mg PO HS [facility] Last Admin: 08/26/16 21:06 Dose: Not Given Collagenase (Santyl -) 1 applic TP DAILY [facility] Last Admin: 08/26/16 10:00 Dose: Not Given Docusate Sodium (Colace -) 100 mg PO BID [facility] Last Admin: 08/26/16 21:06 Dose: Not Given Gabapentin (Neurontin -) 300 mg PO TID [facility] Last Admin: 08/27/16 07:02 Dose: Not Given Heparin Sodium (Porcine) (Heparin -) 5,000 unit SQ BID [facility] Last Admin: 08/26/16 21:08 Dose: Not Given Hydromorphone HCl (Dilaudid Injection -) 1 mg IVPB Q6H PRN PRN Reason: PAIN Last Admin: 08/26/16 23:14 Dose: 1 mg Hydromorphone HCl (Dilaudid Injection -) 2 mg IVPUSH Q4H PRN PRN Reason: PAIN Last Admin: 08/27/16 05:05 Dose: 2 mg Piperacillin Sod/Tazobactam Sod (Zosyn 3.375gm Ivpb (Pre-Docked)) 50 mls @ 100 mls/hr IVPB Q8H-IV [facility] PRN Reason: Protocol Last Admin: 08/27/16 01:19 Dose: 100 mls/hr Alteplase, Recombinant 25 mg/ (Sodium Chloride) 250 mls @ 10 mls/hr IVPB ONCE ONE Stop: 08/27/16 11:59 Insulin Aspart (Novolog Vial Sliding Scale -) 1 vial SQ ACHS [facility] PRN Reason: Protocol Last Admin: 08/26/16 22:43 Dose: 2 units Metoprolol Tartrate (Lopressor -) 50 mg PO DAILY [facility] Last Admin: 08/26/16 08:44 Dose: 50 mg Nicotine (Nicoderm Patch -) 14 mg TD DAILY [facility] Last Admin: 08/26/16 12:38 Dose: Not Given Oxycodone HCl (Roxicodone -) 10 mg PO Q6H PRN Last Admin: 08/25/16 15:25 Dose: 10 mg Pancrelipase (Creon Dr 6,000 Units Capsule) 2 cap PO TIDCM [facility] Last Admin: 08/26/16 17:32 Dose: Not Given Ranitidine HCl (Zantac -) 150 mg PO DAILY [facility] Last Admin: 08/26/16 12:40 Dose: Not Given - Objective Vital Signs: Vital Signs Temperature 98.4 F 08/27/16 06:00 Pulse Rate 93 H 08/27/16 06:00 Respiratory Rate 12 08/27/16 06:00 Blood Pressure 163/84 08/27/16 06:00 O2 Sat by Pulse Oximetry (%) 99 08/26/16 22:00 Constitutional: Yes: Well Nourished, No Distress HENT: Yes: WNL, Atraumatic Neck: Yes: WNL, Supple Cardiovascular: Yes: Regular Rate and Rhythm, S1, S2 Respiratory: Yes: WNL, Regular, CTA Bilaterally Gastrointestinal: Yes: WNL, Normal Bowel Sounds, Soft. 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 Code(s): E11.59 - TYPE 2 DIABETES MELLITUS WITH OTH CIRCULATORY COMPLICATIONS I70.209 - UNSP ATHSCL [place] ARTERIES OF EXTREMITIES, UNSP EXTREMITY (2) Gangrene associated with diabetes mellitus Code(s): E11.52 - TYPE 2 DIABETES W DIABETIC PERIPHERAL ANGIOPATHY W GANGRENE Assessment/Plan Microbiology 08/21/16 11:08 Blood - Peripheral Venous Blood Culture - Final NO GROWTH AFTER 5 DAYS INCUBATION 08/21/16 11:08 Blood - Peripheral Venous Blood Culture - Final NO GROWTH AFTER 5 DAYS INCUBATION Laboratory Tests 0308/26/16 08/27/16 10:00 23:00 05:10 WBC 13.0 H Hgb 9.1 L Hct 27.9 L Plt Count 601 H BUN 7 Creatinine 0.7 Vancomycin Trough 19.020 H* Assessment Diabetic gangrene post angioplasty Plan Stop antibiotic Arturo ARTHUR
[2016-08-27] MEDS: INSULIN SLIDING SCALE (NOVOLOG) 1 VIAL SQ SCH ×4 (08:08→23:26)
[2016-08-27] MEDS ORDERED: HEPARIN NA (PORCINE) 5,000 UNITS/ML 1ML VIAL ONE (08:13)
[2016-08-27] MEDS ORDERED: LIDOCAINE HCL 1%, 10 MG/ML (20ML VIAL) ONE (08:13)
[2016-08-27] MEDS: HYDROmorphone HCL CARPU-JECT 1 MG/1 ML DISP.SYRIN IVPB PRN (08:37)
[2016-08-27] MEDS ORDERED: ALTEPLASE 50MG 25 MG in SODIUM CHLORIDE 250 ML IVPB ONE (09:30)
[2016-08-27] MEDS: METOPROLOL TARTRATE 50 MG TABLET (FP) PO SCH (09:32)
--- NOTE | 2016-08-27 09:35 | PN ---
Physical Exam: SUBJECTIVE: Patient seen and examined at bedside in ICU this AM. AAO but drowsy from pain meds. States there is no pain in her foot at present, except with movement. Afebrile overnight & reports no new complaints. NPO for surgery later today to continue with thrombolysis. OBJECTIVE: Vital Signs Period Temp Pulse Resp BP Sys/Badillo Pulse Ox Last 24 Hr 98.3 F-99.1 F 74-99 11-18 130-192/77-103 97-100 GENERAL: Awake, alert, and fully oriented, in no acute distress. HEENT: Atraumatic, EOMI, PERRLA, Moist membranes, no lymphadenopathy noted LUNGS: Breath sounds equal, clear to auscultation bilaterally. No wheezes, and no crackles. No accessory muscle use. HEART: Regular rate and rhythm, normal S1 and S2 without murmur, rub or gallop ABDOMEN: Soft, nontender, not distended, normoactive bowel sounds UPPER EXTREMITIES: 2+ pulses, warm, well-perfused. No cyanosis. No clubbing. Cap refill <2 seconds. No peripheral edema LOWER EXTREMITIES: minimally palpable pedal pulses in bilateral LE (L>R), but less swollen, less tender & less erythematous than on admission. clean & dry dressing covering right forefoot wound. NEUROLOGICAL: Cranial nerves II-XII intact. Normal speech. Gait not observed. PSYCHIATRIC: Cooperative. Good eye contact. Appropriate mood and affect. SKIN: as above Laboratory Results - last 24 hr 08/26/16 08/26/16 08/26/16 17:08 17:08 17:08 WBC 9.4 RBC 3.21 L Hgb 9.4 L Hct 28.4 L MCV 88.3 MCHC 33.2 RDW 13.9 Plt Count 665 H MPV 7.2 L Neutrophils % 63.2 Lymphocytes % 24.2 D Monocytes % 8.6 Eosinophils % 3.3 Basophils % 0.7 INR PTT (Actin FS) Fibrinogen 709.0 H Sodium 142 Potassium 4.2 Chloride 109 H Carbon Dioxide 23 Anion Gap 10 BUN 6 L Creatinine 0.6 Creat Clearance w eGFR > 60 POC Glucometer Random Glucose 146 H D Lactic Acid Calcium 8.3 L Phosphorus Magnesium Total Bilirubin 0.1 L D AST 15 ALT 8 L Alkaline Phosphatase 410 H Total Protein 5.6 L Albumin 1.1 L 0308/26/16 08/26/16 17:26 20:28 22:34 WBC RBC Hgb Hct MCV MCHC RDW Plt Count MPV Neutrophils % Lymphocytes % Monocytes % Eosinophils % Basophils % INR PTT (Actin FS) Fibrinogen Sodium Potassium Chloride Carbon Dioxide Anion Gap BUN Creatinine Creat Clearance w eGFR POC Glucometer 152 155 Random Glucose Lactic Acid Calcium Phosphorus 4.1 Magnesium 1.6 L Total Bilirubin AST ALT Alkaline Phosphatase Total Protein Albumin 08/26/16 08/26/16 08/26/16 23:00 23:00 23:00 WBC 12.5 H D RBC 3.32 L Hgb 9.4 L Hct 29.4 L MCV 88.5 MCHC 31.9 L RDW 14.2 Plt Count 656 H MPV 7.3 L Neutrophils % 81.4 D Lymphocytes % 11.0 D Monocytes % 5.5 Eosinophils % 1.5 Basophils % 0.6 INR PTT (Actin FS) Fibrinogen > 700.0 H Sodium 143 Potassium 3.9 Chloride 109 H Carbon Dioxide 22 Anion Gap 12 BUN 7 Creatinine 0.7 Creat Clearance w eGFR > 60 POC Glucometer Random Glucose 156 H Lactic Acid Calcium 8.2 L Phosphorus Magnesium Total Bilirubin 0.1 L AST 15 ALT 8 L Alkaline Phosphatase 406 H Total Protein 5.5 L Albumin 1.2 L 08/27/16 08/27/16 08/27/16 05:10 05:11 05:15 WBC 13.0 H RBC 3.14 L Hgb 9.1 L Hct 27.9 L MCV 88.8 MCHC 32.7 RDW 14.1 Plt Count 601 H MPV 7.2 L Neutrophils % 75.5 Lymphocytes % 13.5 D Monocytes % 8.6 Eosinophils % 1.4 Basophils % 1.0 INR 1.16 H PTT (Actin FS) 35.5 H Fibrinogen 656.0 H Sodium Potassium Chloride Carbon Dioxide Anion Gap BUN Creatinine Creat Clearance w eGFR POC Glucometer Random Glucose Lactic Acid Calcium Phosphorus Magnesium Total Bilirubin AST ALT Alkaline Phosphatase Total Protein Albumin 08/27/16 08/27/16 05:15 06:00 WBC RBC Hgb Hct MCV MCHC RDW Plt Count MPV Neutrophils % Lymphocytes % Monocytes % Eosinophils % Basophils % INR PTT (Actin FS) Fibrinogen Sodium Potassium Chloride Carbon Dioxide Anion Gap BUN Creatinine Creat Clearance w eGFR POC Glucometer Random Glucose Lactic Acid 0.653 Calcium Phosphorus 4.9 Magnesium 1.8 Total Bilirubin AST ALT Alkaline Phosphatase Total Protein Albumin Active Medications Generic Name Dose Route Start Last Admin Trade Name Freq PRN Reason Stop Dose Admin Aclidinium [place] 1 puff 08/22/16 22:00 08/26/16 21:56 Tudorza - IH 1 puff BID [facility] Administration Aspirin 81 mg 08/23/16 10:00 08/26/16 10:00 Asa - PO Not Given DAILY [facility] Atorvastatin Calcium 20 mg 08/22/16 22:00 08/26/16 21:06 Lipitor - PO Not Given HS [facility] Collagenase 1 applic 08/23/16 10:00 08/26/16 10:00 Santyl - TP Not Given DAILY [facility] Docusate Sodium 100 mg 08/22/16 22:00 08/26/16 21:06 Colace - PO Not Given BID [facility] Gabapentin 300 mg 08/22/16 22:00 08/27/16 07:02 Neurontin - PO Not Given TID [facility] Heparin Sodium (Porcine) 5,000 unit 08/22/16 22:00 08/26/16 21:08 Heparin - SQ Not Given BID [facility] Hydromorphone HCl 1 mg 08/24/16 10:46 08/27/16 08:37 Dilaudid Injection - IVPB 1 mg Q6H PRN Administration PAIN Hydromorphone HCl 2 mg 08/26/16 15:15 08/27/16 05:05 Dilaudid Injection - IVPUSH 2 mg Q4H PRN Administration PAIN Alteplase, Recombinant 25 mg/ 250 mls @ 10 mls/hr 08/26/16 11:00 Sodium Chloride IVPB 08/27/16 11:59 ONCE ONE Alteplase, Recombinant 25 mg/ 250 mls @ 10 mls/hr 08/27/16 09:30 Sodium Chloride IVPB 08/28/16 10:29 ONCE ONE Insulin Aspart 1 vial 08/22/16 22:00 08/27/16 08:08 Novolog Vial Sliding Scale - SQ Not Given ACHS [facility] Protocol Metoprolol Tartrate 50 mg 08/23/16 10:00 08/26/16 08:44 Lopressor - PO 50 mg DAILY [facility] Administration Nicotine 14 mg 08/23/16 10:00 08/26/16 12:38 Nicoderm Patch - TD Not Given DAILY [facility] Oxycodone HCl 10 mg 08/23/16 20:43 08/25/16 15:25 Roxicodone - PO 10 mg Q6H PRN Administration Pancrelipase 2 cap 08/23/16 08:00 08/26/16 17:32 Crelauro Fonseca 6,000 Units Capsule PO Not Given TIDCM [facility] Ranitidine HCl 150 mg 08/23/16 10:00 08/26/16 12:40 Zantac - PO Not Given DAILY [facility] ASSESSMENT/PLAN: 51 year old female with significant PMH of HTN, DM, RLE stent, Asthma, Gallstones, chronic pancreatitis & current 1/2ppd smoker who presented to ICU s/ p right tibial artery angioplasty, thrombolysis this AM to improve stenosis of pedal vessels. #Right foot gangrene, ischemia -S/p angioplasty, thrombectomy yesterday -further surgical intervention scheduled for today to continue with thrombolysis -currently on Heparin with Alteplase running directly into RLE -right foot still may require amputation, requires close monitoring of pedal pulses -Dilaudid pain management -wound care, dressing, collagenase as per surgery -ID consult appreciated -Vascular Surgery consulted & following #Chronic Pancreatitis -continue Creon -Lipase/amylase normal -elevated ALP (Hx of gallstones) -GI Consult appreciated #DM -ISS, FS BGM -ADA Diet once post-op -continue gabapentin -endocrine consult appreciated #HTN/HLD -continue Lopressor, Lipitor, [id number] #Acute Kidney injury, resolved -resolved with IVF administration -proteinuria workup as outpatient -Nephrology consult appreciated -avoid nephrotoxic meds Prophylaxis/FEN -Heparin/Alteplase, Zantac, Nicotine patch -IVF NS running with alteplase, monitor electrolytes, keep NPO Visit type - Emergency Visit Emergency Visit: Yes ED Registration Date: 08/21/16 Care time: The patient presented to the Emergency Department on the above date and was hospitalized for further evaluation of their emergent condition. - New Patient This patient is new to me today: No - Critical Care Critical Care patient: Yes Total Critical Care Time (in minutes): 45 Critical Care Statement: The care of this patient involved high complexity decision making to prevent further life threatening deterioration of the patient 's condition and/or to evalute & treat vital organ system(s) failure or risk of failure.
[2016-08-27] MEDS ORDERED: PROPOFOL 20 ML ONE ×2 (10:29)
[2016-08-27] MEDS ORDERED: MIDAZOLAM HCL 2 MG/2 ML SINGLE DOSE VIAL ONE ×2 (10:29→11:00)
[2016-08-27] MEDS ORDERED: ceFAZolin SODIUM 1 GM VIAL ONE (11:09)
[2016-08-27] MEDS ORDERED: ceFAZolin SODIUM 1 GM VIAL IVPB ONE (11:14)
[2016-08-27] MEDS ORDERED: LIDOCAINE HCL 1%, 10 MG/ML (20ML VIAL) IJ ONE (11:17)
[2016-08-27 11:29] LABS: ALBUMIN 1.1 g/dl (3.4-5.0); ANION GAP 14 (8-16); BILIRUBIN,TOTAL 0.2 mg/dL (0.2-1.0); CALCIUM 8.4 mg/dL (8.5-10.1); CO2 21 mmol/L (21-32); CREATININE 0.7 mg/dL (0.55-1.02); GLUCOSE,RANDOM 136 mg/dL (74-106); SGOT/AST 14 U/L (15-37); SGPT/ALT 8 U/L (12-78); TOT PROT 5.5 g/dl (6.4-8.2)
[2016-08-27 11:30] LABS: ALK PHOS 387 U/L (45-117)
--- NOTE | 2016-08-27 12:05 | PN ---
Teaching Attending Note Name of Resident: Malcolm Pabon ATTENDING PHYSICIAN STATEMENT I saw and evaluated the patient. I reviewed the resident's note and discussed the case with the resident. I agree with the resident's findings and plan as documented. SUBJECTIVE: Pt seen and examined in the ICU. Pain controlled on current regimen. Heparin and alteplase gtts infusing. OBJECTIVE: Last Vital Signs Temp Pulse Resp BP Pulse Ox 99.1 F 97 H 12 168/90 99 08/27/16 07:00 08/27/16 07:00 08/27/16 07:00 08/27/16 07:00 08/26/16 22:00 Intake & Output 08/24/16 08/25/16 08/26/16 08/27/16 23:59 23:59 23:59 23:59 Intake Total 2062 2029 1987 810 Output Total 1450 800 Balance 2062 2029 538 10 Weight 163 lb Gen: NAD at rest Heart: RRR Lung: decreased breath sounds at the bases Abd: soft, nontender Ext: weak pulses CBC, BMP 08/27/16 05:10 08/27/16 05:15 Active Medications Aclidinium [place] (Tudorza -) 1 puff IH BID [facility] Last Admin: 08/26/16 21:56 Dose: 1 puff Aspirin (Asa -) 81 mg PO DAILY [facility] Last Admin: 08/26/16 10:00 Dose: Not Given Atorvastatin Calcium (Lipitor -) 20 mg PO HS [facility] Last Admin: 08/26/16 21:06 Dose: Not Given Collagenase (Santyl -) 1 applic TP DAILY [facility] Last Admin: 08/26/16 10:00 Dose: Not Given Docusate Sodium (Colace -) 100 mg PO BID [facility] Last Admin: 08/26/16 21:06 Dose: Not Given Gabapentin (Neurontin -) 300 mg PO TID [facility] Last Admin: 08/27/16 07:02 Dose: Not Given Heparin Sodium (Porcine) (Heparin -) 5,000 unit SQ BID [facility] Last Admin: 08/26/16 21:08 Dose: Not Given Hydromorphone HCl (Dilaudid Injection -) 1 mg IVPB Q6H PRN PRN Reason: PAIN Last Admin: 08/27/16 08:37 Dose: 1 mg Hydromorphone HCl (Dilaudid Injection -) 2 mg IVPUSH Q4H PRN PRN Reason: PAIN Last Admin: 08/27/16 05:05 Dose: 2 mg Alteplase, Recombinant 25 mg/ (Sodium Chloride) 250 mls @ 10 mls/hr IVPB ONCE ONE Stop: 08/28/16 10:29 Insulin Aspart (Novolog Vial Sliding Scale -) 1 vial SQ ACHS [facility] PRN Reason: Protocol Last Admin: 08/27/16 08:08 Dose: Not Given Metoprolol Tartrate (Lopressor -) 50 mg PO DAILY [facility] Last Admin: 08/27/16 09:32 Dose: 50 mg Nicotine (Nicoderm Patch -) 14 mg TD DAILY [facility] Last Admin: 08/26/16 12:38 Dose: Not Given Oxycodone HCl (Roxicodone -) 10 mg PO Q6H PRN Last Admin: 08/25/16 15:25 Dose: 10 mg Pancrelipase (Creon Dr 6,000 Units Capsule) 2 cap PO TIDCM [facility] Last Admin: 08/26/16 17:32 Dose: Not Given Ranitidine HCl (Zantac -) 150 mg PO DAILY [facility] Last Admin: 08/26/16 12:40 Dose: Not Given ASSESSMENT AND PLAN: PAD Right Foot Gangrene s/p posterior tibial artery angioplasty 3 s/p tibial artery angioplasty/thrombolysis 08/26 Chronic Pancreatitis HTN DM Asthma Smoker - for repeat angiogram today - anticoagulation/thrombolytics per surgery - pulse checks - ASA, statin - pain control - incentive spirometry - smoking cessation - continue ICU monitoring
[2016-08-27] MEDS: HEPARIN INFUSION - 500 ML IVPB SCH (12:15)
[2016-08-27] MEDS ORDERED: HEPARIN NA (PORCINE) 5,000 UNITS/ML 1ML VIAL IVPUSH PRN ×2 (12:15)
--- NOTE | 2016-08-27 12:19 | PN ---
Progress Note (short form) - Note Progress Note: Vascular surgery Pt came into the hospital last week. Pt had angiogram/angoplasty done at [facility] by Dr. Pierre. Was then offered amputation. Pt refused and came [facility] week. Pt had angiogram with us on thursday, with tibial artery angioplasty. However still felt rest pain on thursday. Pt had repeat angiogram on thursday, showing pt has thrombosis below the knee. TPa was started and given overnight. Today angiogram continues to show clot, mainly in AT. Pt has severe microvascular disesase in foot, with limited outflow, with right foot gangrene. At this point pt has one vessel runoff with the peroneal artery. Minimal flow going into foot. There is no bypassable disease. Pt is a current 2PPD smoker for the last 35 years. At this point the best option for pt is a BKA with prosthesis. Please initiate cardiology clearance. Will do BKA once cleared. Jose Manzo DO
--- NOTE | 2016-08-27 12:20 | PN ---
Progress Note (short form) - Note Progress Note: Vascular Surgery Pt with thrombosis requiring TPa Restarted IV heparin. Will need sheet sorter AC after BKA Jose Manzo DO
--- NOTE | 2016-08-27 12:22 | OP ---
Operative Note - Note: Operative Date: 08/27/16 Pre-Operative Diagnosis: Right foot gangrene Operation: Thrombolysis check, RLE angiogram, tibial artery angioplasty Findings: Peroneal artery as only runoff Severe microvascular disease in foot Post-Operative Diagnosis: Same as Pre-op Surgeon: Jose Manzo Anesthesia: Fractional Estimated Blood Loss (mls): 75 Operative Report Dictated: Yes
[2016-08-27] MEDS: ASPIRIN 81 MG CHEWABLE TABLETS PO SCH (14:06)
[2016-08-27] MEDS: DOCUSATE SODIUM 100 MG CAPSULE (FP) PO SCH ×2 (14:06→21:52)
[2016-08-27] MEDS ORDERED: PT OWN MED DRAWER 7, Y5N ONE (14:08)
[2016-08-27] MEDS: NICOTINE 14 MG/24 HOURS TOPICAL PATCH TD SCH (14:10)
[2016-08-27] MEDS: COLLAGENASE CLOSTRIDIUM HIST. 30 GRAMS TUBE TP SCH (14:11)
[2016-08-27] MEDS: ACLIDINIUM BROMIDE 400 MCG/INH AERO.POWD IH SCH ×2 (14:13→22:04)
[2016-08-27] MEDS ORDERED: HEMOQUE TEST 1 EACH EACH ONE (14:29)
[2016-08-27] MEDS: LIPASE/PROTEASE/AMYLASE 6,000 UNIT CAPSULE PO SCH ×2 (14:44→18:03)
[2016-08-27] MEDS: RANITIDINE HCL 150 MG TABLET (FP) PO SCH (14:50)
[2016-08-27] MEDS ORDERED: oxyCODONE HCL 5 MG TABLET PO PRN (14:54)
--- NOTE | 2016-08-27 17:37 | PN ---
Progress Note, Physician Chief Complaint: AWAKE LABILE IN PAIN VASC SX ATTEMPT TO SALVAGE RIGHT LOWER EXTREMITY - Current Medication List Current Medications: Active Medications Aclidinium [place] (Tudorza -) 1 puff IH BID [facility] Aspirin (Asa -) 81 mg PO DAILY [facility] Atorvastatin Calcium (Lipitor -) 20 mg PO HS [facility] Collagenase (Santyl -) 1 applic TP DAILY [facility] Docusate Sodium (Colace -) 100 mg PO BID [facility] Gabapentin (Neurontin -) 300 mg PO TID [facility] Heparin Sodium (Porcine) (Heparin -) 1,000 unit IVPUSH PRN PRN PRN Reason: Heparin Heparin Sodium (Porcine) (Heparin -) 5,000 unit IVPUSH PRN PRN PRN Reason: Heparin Hydromorphone HCl (Dilaudid Injection -) 1 mg IVPB Q6H PRN PRN Reason: PAIN Hydromorphone HCl (Dilaudid Injection -) 2 mg IVPUSH Q4H PRN PRN Reason: PAIN Heparin Sodium/Dextrose (Heparin Infusion -) 500 mls @ 20 mls/hr IVPB TITR [facility] ; 1,000 UNITS/HR PRN Reason: Protocol Insulin Aspart (Novolog Vial Sliding Scale -) 1 vial SQ ACHS [facility] PRN Reason: Protocol Lorazepam (Ativan Injection -) 0.5 mg IVPUSH Q6H PRN PRN Reason: AGITATION Stop: 08/28/16 17:02 Metoprolol Tartrate (Lopressor -) 50 mg PO DAILY [facility] Nicotine (Nicoderm Patch -) 14 mg TD DAILY [facility] Oxycodone HCl (Roxicodone -) 10 mg PO Q6H PRN Pancrelipase (Creon Dr 6,000 Units Capsule) 2 cap PO TIDCM [facility] Ranitidine HCl (Zantac -) 150 mg PO DAILY [facility] - Objective Vital Signs: Vital Signs Temperature 99.1 F 08/27/16 07:00 Pulse Rate 79 08/27/16 13:48 Respiratory Rate 24 08/27/16 13:48 Blood Pressure 172/68 08/27/16 13:48 O2 Sat by Pulse Oximetry (%) 100 08/27/16 13:48 Constitutional: Yes: Moderate Distress Eyes: Yes: WNL HENT: Yes: WNL Neck: Yes: WNL Cardiovascular: Yes: WNL Respiratory: Yes: WNL Gastrointestinal: Yes: WNL Genitourinary: Yes: WNL Musculoskeletal: Yes: Muscle Pain, Muscle Weakness Extremities: Yes: Deformity, Other Edema: Yes Edema: LLE: Trace, RLE: Trace Peripheral Pulses WNL: Yes Integumentary: Yes: Pressure Ulcer, Skin Tear, Other Wound/Incision: Yes: Open to air (RIGHT FOOT WOUND WITH MUSCLE EXPOSED), Dressing Removed, Unapproximated Neurological: Yes: Pre-Existing Deficit, Weakness ...Motor Strength: LLE, RLE Psychiatric: Yes: Agitated Labs: CBC, BMP 08/27/16 05:10 08/27/16 05:15 INR, PTT INR 1.16 (0.82-1.09) H 08/27/16 05:15 Fibrinogen 656.0 mg/dL (238-498) H 08/27/16 05:11 Problem List - Problems (1) Ischemic foot Code(s): I99.8 - OTHER DISORDER OF CIRCULATORY SYSTEM (2) Abdominal pain Code(s): R10.9 - UNSPECIFIED ABDOMINAL PAIN Qualifiers: Abdominal location: unspecified location Qualified Code(s): R10.9 - Unspecified abdominal pain (3) Tobacco dependence Code(s): F17.200 - NICOTINE DEPENDENCE, UNSPECIFIED, UNCOMPLICATED (4) 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 Code(s): E11.59 - TYPE 2 DIABETES MELLITUS WITH OTH CIRCULATORY COMPLICATIONS I70.209 - UNSP ATHSCL [place] ARTERIES OF EXTREMITIES, UNSP EXTREMITY (5) Hypertension Code(s): I10 - ESSENTIAL (PRIMARY) HYPERTENSION (6) H/O ETOH abuse Code(s): Z87.898 - PERSONAL HISTORY OF OTHER SPECIFIED CONDITIONS Assessment/Plan RESULTS OF ARTERIOGRAM REVIEWED MONITOR RIGHT FOOT, IF NEEDED FURTHER VASC SURGERY AWAITING RESULT OF TODAY'S SURGERY STRICT ADA/LOW SODIUM/LOW FAT DIET COMPLIANCE DISCUSSED WITH PATIENT DILAUDID IVPB ADDED FOR BREAK THROUGH PAIN HEROIC EFFORTS BY DR SEVILLA VASC SURGERY TO SALVAGE RIGHT FOOT AND AVOID AMPUTATION. LIKELY PATIENT WILL NEED AMPUTATION!
[2016-08-27] MEDS: LORAZEPAM CARPU-JECT 2 MG/ML DISP.SYRIN IVPUSH PRN (18:01)
[2016-08-27] MEDS ORDERED: morphine CARPU-JECT 2 MG/1 ML DISP.SYRIN IVPUSH ONE (20:37)
--- NOTE | 2016-08-27 20:45 | PN ---
Progress Note (short form) - Note Progress Note: Called to bedside 2034 by RN secondary to pt endorsing chest pain. Gen: Pt tearful, awake, family at bedside Pulm: No adventitious breath sounds appreciated, RR 14 Cardiac: SBP 180s, HR sinus upper 90s lower 100s. Pt endorsing pain, pt unable to describe pain Ex: SCDx2, pulse check with dopplar pending Rt foot with bandage, left femoral insertion erlinda [employer] without noted bleeding EKG stat -- 99 sinus, TWI aVR, V1,V2 (my read) 2mg morphine stat Cardiac enzymes stat Pt endorses pain relief with morphine. Concern for anxiety factor, consider psych consult.
[2016-08-27] MEDS ORDERED: ATORVASTATIN CA 20 MG TABLET (FP) PO SCH (22:00)
[2016-08-27 22:18] LABS: TROPONIN I < 0.02 ng/ml (0.00-0.05)
[2016-08-28] MEDS ORDERED: HEPARIN INFUSION - 500 ML IVPB ONE (01:17)
[2016-08-28] MEDS: HYDROmorphone HCL CARPU-JECT 2 MG/1 ML DISP.SYRIN IVPUSH PRN ×2 (04:06→09:22)
[2016-08-28] MEDS ORDERED: LABETALOL HCL 5 MG/1 ML (100MG/20 ML VIAL) IVPUSH ONE (04:35)
[2016-08-28] MEDS: HYDROmorphone HCL CARPU-JECT 1 MG/1 ML DISP.SYRIN IVPB PRN ×3 (05:43→18:41)
[2016-08-28] MEDS: GABAPENTIN 300 MG CAPSULE (FP) PO SCH ×3 (05:43→21:22)
[2016-08-28 06:22] LABS: BASOPHIL 1.4 % (0-2.0); EOSINOPHIL 2.5 % (0-4.5); MCH 29.6 pg (25.7-33.7); MCHC 33.5 g/dl (32.0-36.0); MEAN CELL VOLUME 88.4 fl (80-96); MEAN PLT VOLUME 7.4 fl (7.5-11.1); NEUTROPHILS 80.8 % (42.8-82.8); PLATELET COUNT 618 K/MM3 (134-434); RDW 14.4 % (11.6-15.6); WHITE BLOOD COUNT 14.1 K/mm3 (4.0-10.0)
[2016-08-28] MEDS: INSULIN SLIDING SCALE (NOVOLOG) 1 VIAL SQ SCH ×4 (06:32→22:11)
[2016-08-28 06:34] LABS: INR 1.25 (0.82-1.09); PROTHROMBIN TIME (PATIENT) 13.8 SEC (9.98-11.88)
[2016-08-28 06:37] LABS: ACTIVATED PTT 50.2 SECONDS (26.9-34.4)
[2016-08-28 06:44] LABS: ALBUMIN 1.2 g/dl (3.4-5.0); ANION GAP 9 (8-16); CALCIUM 7.9 mg/dL (8.5-10.1); CO2 24 mmol/L (21-32); GLUCOSE,RANDOM 183 mg/dL (74-106)
[2016-08-28 06:49] LABS: ALK PHOS 412 U/L (45-117); BILIRUBIN,TOTAL 0.2 mg/dL (0.2-1.0); CREATININE 0.6 mg/dL (0.55-1.02); SGOT/AST 10 U/L (15-37); SGPT/ALT 8 U/L (12-78)
--- NOTE | 2016-08-28 07:21 | PN ---
Progress Note, Physician Chief Complaint: ID Discussed with Dr Manzo yesterday regarding antibiotics She is off Zosyn now as no infection Obviously larger issue gangrene LE. No fevers chills - Current Medication List Current Medications: Active Medications Aclidinium [place] (Tudorza -) 1 puff IH BID [facility] Last Admin: 08/27/16 22:04 Dose: 1 puff Aspirin (Asa -) 81 mg PO DAILY [facility] Atorvastatin Calcium (Lipitor -) 20 mg PO HS [facility] Last Admin: 08/27/16 21:52 Dose: 20 mg Collagenase (Santyl -) 1 applic TP DAILY [facility] Docusate Sodium (Colace -) 100 mg PO BID [facility] Last Admin: 08/27/16 21:52 Dose: 100 mg Gabapentin (Neurontin -) 300 mg PO TID [facility] Last Admin: 08/28/16 05:43 Dose: 300 mg Heparin Sodium (Porcine) (Heparin -) 1,000 unit IVPUSH PRN PRN PRN Reason: Heparin Heparin Sodium (Porcine) (Heparin -) 5,000 unit IVPUSH PRN PRN PRN Reason: Heparin Hydromorphone HCl (Dilaudid Injection -) 1 mg IVPB Q6H PRN PRN Reason: PAIN Last Admin: 08/28/16 05:43 Dose: 1 mg Hydromorphone HCl (Dilaudid Injection -) 2 mg IVPUSH Q4H PRN PRN Reason: PAIN Last Admin: 08/28/16 04:06 Dose: 2 mg Heparin Sodium/Dextrose (Heparin Infusion -) 500 mls @ 20 mls/hr IVPB TITR [facility] ; 1,000 UNITS/HR PRN Reason: Protocol Last Admin: 08/27/16 12:15 Dose: 20 mls/hr Insulin Aspart (Novolog Vial Sliding Scale -) 1 vial SQ ACHS [facility] PRN Reason: Protocol Last Admin: 08/28/16 06:32 Dose: 4 units Lorazepam (Ativan Injection -) 0.5 mg IVPUSH Q6H PRN PRN Reason: AGITATION Stop: 08/28/16 17:02 Last Admin: 08/27/16 18:01 Dose: 0.5 mg Metoprolol Tartrate (Lopressor -) 50 mg PO DAILY [facility] Nicotine (Nicoderm Patch -) 14 mg TD DAILY [facility] Oxycodone HCl (Roxicodone -) 10 mg PO Q6H PRN Pancrelipase (Tommie Dr 6,000 Units Capsule) 2 cap PO TIDCM [facility] Last Admin: 08/27/16 18:03 Dose: Not Given Ranitidine HCl (Zantac -) 150 mg PO DAILY [facility] - Objective Vital Signs: Vital Signs Temperature 98.2 F 08/27/16 22:00 Pulse Rate 83 08/28/16 02:00 Respiratory Rate 12 08/28/16 02:00 Blood Pressure 162/81 08/28/16 02:00 O2 Sat by Pulse Oximetry (%) 100 08/27/16 22:00 Constitutional: Yes: Well Nourished, No Distress Neck: Yes: WNL, Supple Cardiovascular: Yes: Regular Rate and Rhythm, S1, S2. No: Murmur Respiratory: Yes: WNL, Regular, CTA Bilaterally Gastrointestinal: Yes: WNL, Normal Bowel Sounds, Soft. 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 Code(s): E11.59 - TYPE 2 DIABETES MELLITUS WITH OTH CIRCULATORY COMPLICATIONS I70.209 - UNSP ATHSCL [place] ARTERIES OF EXTREMITIES, UNSP EXTREMITY (2) Gangrene associated with diabetes mellitus Code(s): E11.52 - TYPE 2 DIABETES W DIABETIC PERIPHERAL ANGIOPATHY W GANGRENE Assessment/Plan Microbiology 08/21/16 11:08 Blood - Peripheral Venous Blood Culture - Final NO GROWTH AFTER 5 DAYS INCUBATION 08/21/16 11:08 Blood - Peripheral Venous Blood Culture - Final NO GROWTH AFTER 5 DAYS INCUBATION Laboratory Tests 08/28/16 08/28/16 05:20 05:20 WBC 14.1 H Hgb 9.4 L Hct 28.0 L Plt Count 618 H BUN 7 Creatinine 0.6 Creat Clearance w eGFR > 60 AST 10 L D ALT 8 L Alkaline Phosphatase 412 H Assessment NO infection / Gangrene RLE/ Elevated Alk phos ? etiology Plan NO antibiotics Will likely need amputation BKA Kindly recall if we can assist Consider Imaging of liver YAMILETH Morris MD
[2016-08-28] MEDS ORDERED: PT OWN MED DRAWER 7, Y5N ONE (07:50)
[2016-08-28] MEDS: LIPASE/PROTEASE/AMYLASE 6,000 UNIT CAPSULE PO SCH ×3 (07:55→16:54)
[2016-08-28 08:03] LABS: MAGNESIUM 1.7 mg/dL (1.8-2.4); PHOSPHOROUS 3.3 mg/dL (2.5-4.9)
[2016-08-28 08:04] LABS: TROPONIN I < 0.02 ng/ml (0.00-0.05)
[2016-08-28] MEDS: LORAZEPAM CARPU-JECT 2 MG/ML DISP.SYRIN IVPUSH PRN (09:27)
[2016-08-28] MEDS: DOCUSATE SODIUM 100 MG CAPSULE (FP) PO SCH ×2 (09:40→21:22)
[2016-08-28] MEDS: ACLIDINIUM BROMIDE 400 MCG/INH AERO.POWD IH SCH ×2 (09:42→21:23)
[2016-08-28] MEDS ORDERED: COLLAGENASE CLOSTRIDIUM HIST. 30 GRAMS TUBE TP SCH (10:00)
[2016-08-28] MEDS ORDERED: NICOTINE 14 MG/24 HOURS TOPICAL PATCH TD SCH (10:00)
[2016-08-28] MEDS ORDERED: ASPIRIN 81 MG CHEWABLE TABLETS PO SCH (10:00)
[2016-08-28] MEDS ORDERED: METOPROLOL TARTRATE 50 MG TABLET (FP) PO SCH (10:00)
[2016-08-28] MEDS ORDERED: RANITIDINE HCL 150 MG TABLET (FP) PO SCH (10:00)
--- NOTE | 2016-08-28 11:25 | PN ---
Physical Exam: SUBJECTIVE: Patient seen and examined at bedside in ICU this AM. Afebrile overnight with good urine output. Continues to have episodes of crying and is emotionally labile. Discussed case with family today who want to come in on Thursday to discuss case with vascular surgery prior to any further procedures being performed. OBJECTIVE: Vital Signs Period Temp Pulse Resp BP Sys/[place] Pulse Ox Last 24 Hr 98.2 F-99 F 79-105 9-24 142-188/68-96 97-100 GENERAL: Awake, alert, and fully oriented, in no acute distress. HEENT: Atraumatic, EOMI, PERRLA, Moist membranes, no lymphadenopathy noted LUNGS: Breath sounds equal, clear to auscultation bilaterally. No wheezes, and no crackles. No accessory muscle use. HEART: Regular rate and rhythm, normal S1 and S2 without murmur, rub or gallop ABDOMEN: Soft, nontender, not distended, normoactive bowel sounds UPPER EXTREMITIES: 2+ pulses, warm, well-perfused. No cyanosis. No clubbing. Cap refill <2 seconds. No peripheral edema LOWER EXTREMITIES: unable to palpate pulses in right foot (DP or MM), clean & dry dressing covering right forefoot wound. NEUROLOGICAL: Cranial nerves II-XII intact. Normal speech. Gait not observed. PSYCHIATRIC: Cooperative. Good eye contact. Appropriate mood and affect. SKIN: as above Laboratory Results - last 24 hr 08/27/16 08/27/16 08/27/16 05:15 21:00 21:00 WBC RBC Hgb Hct MCV MCHC RDW Plt Count MPV Neutrophils % Lymphocytes % Monocytes % Eosinophils % Basophils % INR PTT (Actin FS) 50.1 H D Fibrinogen Sodium 144 Potassium 4.0 Chloride 109 H Carbon Dioxide 21 Anion Gap 14 BUN 7 Creatinine 0.7 Creat Clearance w eGFR > 60 POC Glucometer Random Glucose 136 H Calcium 8.4 L Phosphorus Magnesium Total Bilirubin 0.2 D AST 14 L ALT 8 L Alkaline Phosphatase 387 H Creatine Kinase 131 Troponin I < 0.02 B-Natriuretic Peptide Total Protein 5.5 L Albumin 1.1 L 08/27/16 08/28/16 08/28/16 21:00 05:20 05:20 WBC 14.1 H RBC 3.17 L Hgb 9.4 L Hct 28.0 L MCV 88.4 MCHC 33.5 RDW 14.4 Plt Count 618 H MPV 7.4 L Neutrophils % 80.8 Lymphocytes % 9.0 D Monocytes % 6.3 Eosinophils % 2.5 Basophils % 1.4 INR 1.25 H PTT (Actin FS) 50.2 H Fibrinogen 556.0 H Sodium Potassium Chloride Carbon Dioxide Anion Gap BUN Creatinine Creat Clearance w eGFR POC Glucometer Random Glucose Calcium Phosphorus Magnesium Total Bilirubin AST ALT Alkaline Phosphatase Creatine Kinase Troponin I B-Natriuretic Peptide 2016.11 H Total Protein Albumin 08/28/16 08/28/16 08/28/16 05:20 05:20 05:20 WBC RBC Hgb Hct MCV MCHC RDW Plt Count MPV Neutrophils % Lymphocytes % Monocytes % Eosinophils % Basophils % INR PTT (Actin FS) Fibrinogen Sodium 142 Potassium 4.0 Chloride 109 H Carbon Dioxide 24 Anion Gap 9 BUN 7 Creatinine 0.6 Creat Clearance w eGFR > 60 POC Glucometer Random Glucose 183 H D Calcium 7.9 L Phosphorus 3.3 D Cancelled Magnesium 1.7 L Cancelled Total Bilirubin 0.2 AST 10 L D ALT 8 L Alkaline Phosphatase 412 H Creatine Kinase 39 Cancelled Troponin I < 0.02 Cancelled B-Natriuretic Peptide Total Protein 5.0 L Albumin 1.2 L Active Medications Generic Name Dose Route Start Last Admin Trade Name Freq PRN Reason Stop Dose Admin Aclidinium [place] 1 puff 08/27/16 22:00 08/28/16 09:42 Tudorza - IH 1 puff BID [facility] Administration Aspirin 81 mg 08/28/16 10:00 08/28/16 09:40 Asa - PO 81 mg DAILY [facility] Administration Atorvastatin Calcium 20 mg 08/27/16 22:00 08/27/16 21:52 Lipitor - PO 20 mg HS [facility] Administration Collagenase 1 applic 08/28/16 10:00 08/28/16 09:43 Santyl - TP 1 applic DAILY [facility] Administration Docusate Sodium 100 mg 08/27/16 22:00 08/28/16 09:40 Colace - PO 100 mg BID [facility] Administration Gabapentin 300 mg 08/27/16 22:00 08/28/16 05:43 Neurontin - PO 300 mg TID [facility] Administration Heparin Sodium (Porcine) 1,000 unit 08/27/16 12:15 Heparin - IVPUSH PRN PRN Heparin Heparin Sodium (Porcine) 5,000 unit 08/27/16 12:15 Heparin - IVPUSH PRN PRN Heparin Hydromorphone HCl 1 mg 08/27/16 14:54 08/28/16 05:43 Dilaudid Injection - IVPB 1 mg Q6H PRN Administration PAIN Hydromorphone HCl 2 mg 08/27/16 14:54 08/28/16 09:22 Dilaudid Injection - IVPUSH 2 mg Q4H PRN Administration PAIN Heparin Sodium/Dextrose 500 mls @ 20 mls/hr 08/27/16 12:15 08/27/16 12:15 Heparin Infusion - IVPB 20 mls/hr TITR [facility] Administration Protocol 1,000 UNITS/HR Insulin Aspart 1 vial 08/27/16 16:30 08/28/16 10:58 Novolog Vial Sliding Scale - SQ 8 units ACHS [facility] Administration Protocol Lorazepam 0.5 mg 08/27/16 17:03 08/28/16 09:27 Ativan Injection - IVPUSH 08/28/16 17:02 0.5 mg Q6H PRN Administration AGITATION Metoprolol Tartrate 50 mg 08/28/16 10:00 08/28/16 09:40 Lopressor - PO 50 mg DAILY [facility] Administration Nicotine 14 mg 08/28/16 10:00 08/28/16 10:57 Nicoderm Patch - TD 14 mg DAILY [facility] Administration Oxycodone HCl 10 mg 08/27/16 14:54 Roxicodone - PO Q6H PRN Pancrelipase 2 cap 08/27/16 17:30 08/28/16 07:[address] 6,000 Units Capsule PO 2 cap TIDCM [facility] Administration Ranitidine HCl 150 mg 08/28/16 10:00 08/28/16 09:40 Zantac - PO 150 mg DAILY [facility] Administration ASSESSMENT/PLAN: 51 year old female with significant PMH of HTN, DM, RLE stent, Asthma, Gallstones, chronic pancreatitis & current 1/2ppd smoker who presented to ICU s/ p right tibial artery angioplasty, thrombolysis. #Right foot gangrene, ischemia -S/p angioplasty, thrombectomy on 08/22; second thrombectomy on 08/27 -currently on Heparin drip w/ ASA -patient will likely require right BKA, family meeting on thursday with her 2 sons to discuss -Dilaudid pain management -wound care, dressing, collagenase as per surgery -ID consult appreciated -Vascular Surgery consulted & following #Chronic Pancreatitis -continue Creon -Lipase/amylase normal -elevated ALP (Hx of gallstones) -GI Consult appreciated #DM -ISS, FS BGM -diabetic diet -continue gabapentin -endocrine consult appreciated #HTN/HLD -continue Lopressor, Lipitor, ASA81 #Acute Kidney injury, resolved -resolved with IVF administration -proteinuria workup as outpatient -Nephrology consult appreciated -avoid nephrotoxic meds Prophylaxis/FEN -Heparin, Zantac, Nicotine patch -repleted Magnesium, tolerating PO diet with good fluid intake Visit type - Emergency Visit Emergency Visit: Yes ED Registration Date: 08/21/16 Care time: The patient presented to the Emergency Department on the above date and was hospitalized for further evaluation of their emergent condition. - New Patient This patient is new to me today: No - Critical Care Critical Care patient: Yes Total Critical Care Time (in minutes): 50 Critical Care Statement: The care of this patient involved high complexity decision making to prevent further life threatening deterioration of the patient 's condition and/or to evalute & treat vital organ system(s) failure or risk of failure.
--- NOTE | 2016-08-28 11:25 | PN ---
Teaching Attending Note Name of Resident: Malcolm Pabon ATTENDING PHYSICIAN STATEMENT I saw and evaluated the patient. I reviewed the resident's note and discussed the case with the resident. I agree with the resident's findings and plan as documented. SUBJECTIVE: Pt seen and examined in the ICU. s/p angiogram/angioplasty of tibial artery, severe microvascular disease per surgery, will need BKA. OBJECTIVE: Last Vital Signs Temp Pulse Resp BP Pulse Ox 98.8 F 81 18 154/78 97 08/28/16 10:00 08/28/16 10:55 08/28/16 10:00 08/28/16 10:00 08/28/16 10:55 Intake & Output 08/25/16 08/26/16 08/27/16 08/28/16 23:59 23:59 23:59 23:59 Intake Total 2029 1987 1999 450 Output Total 1450 1650 600 Balance 20298 350 -150 Weight 163 lb 160 lb 8 oz Gen: somnolent but arousable, agitated at times Heart: RRR Lung: decreased breath sounds at the bases Abd: soft, nontender Ext: right foot gangrene CBC, BMP 08/28/16 05:20 08/28/16 05:20 Active Medications Aclidinium [place] (Tudorza -) 1 puff IH BID [facility] Last Admin: 08/28/16 09:42 Dose: 1 puff Aspirin (Asa -) 81 mg PO DAILY [facility] Last Admin: 08/28/16 09:40 Dose: 81 mg Atorvastatin Calcium (Lipitor -) 20 mg PO HS [facility] Last Admin: 08/27/16 21:52 Dose: 20 mg Collagenase (Santyl -) 1 applic TP DAILY [facility] Last Admin: 08/28/16 09:43 Dose: 1 applic Docusate Sodium (Colace -) 100 mg PO BID [facility] Last Admin: 08/28/16 09:40 Dose: 100 mg Gabapentin (Neurontin -) 300 mg PO TID [facility] Last Admin: 08/28/16 05:43 Dose: 300 mg Heparin Sodium (Porcine) (Heparin -) 1,000 unit IVPUSH PRN PRN PRN Reason: Heparin Heparin Sodium (Porcine) (Heparin -) 5,000 unit IVPUSH PRN PRN PRN Reason: Heparin Hydromorphone HCl (Dilaudid Injection -) 1 mg IVPB Q6H PRN PRN Reason: PAIN Last Admin: 08/28/16 05:43 Dose: 1 mg Hydromorphone HCl (Dilaudid Injection -) 2 mg IVPUSH Q4H PRN PRN Reason: PAIN Last Admin: 08/28/16 09:22 Dose: 2 mg Heparin Sodium/Dextrose (Heparin Infusion -) 500 mls @ 20 mls/hr IVPB TITR [facility] ; 1,000 UNITS/HR PRN Reason: Protocol Last Admin: 08/27/16 12:15 Dose: 20 mls/hr Insulin Aspart (Novolog Vial Sliding Scale -) 1 vial SQ ACHS [facility] PRN Reason: Protocol Last Admin: 08/28/16 10:58 Dose: 8 units Lorazepam (Ativan Injection -) 0.5 mg IVPUSH Q6H PRN PRN Reason: AGITATION Stop: 08/28/16 17:02 Last Admin: 08/28/16 09:27 Dose: 0.5 mg Metoprolol Tartrate (Lopressor -) 50 mg PO DAILY [facility] Last Admin: 08/28/16 09:40 Dose: 50 mg Nicotine (Nicoderm Patch -) 14 mg TD DAILY [facility] Last Admin: 08/28/16 10:57 Dose: 14 mg Oxycodone HCl (Roxicodone -) 10 mg PO Q6H PRN Pancrelipase (Creon Dr 6,000 Units Capsule) 2 cap PO TIDCM [facility] Last Admin: 08/28/16 07:55 Dose: 2 cap Ranitidine HCl (Zantac -) 150 mg PO DAILY [facility] Last Admin: 08/28/16 09:40 Dose: 150 mg ASSESSMENT AND PLAN: PAD Right Foot Gangrene s/p posterior tibial artery angioplasty 08/23 s/p tibial artery angioplasty/thrombolysis 08/26 Chronic Pancreatitis HTN DM Asthma Smoker - continue anticoagulation/antiplatelets per surgery - pulse checks - ASA, statin - pain control - incentive spirometry - smoking cessation - pt and family to discuss BKA - can monitor on floor
--- NOTE | 2016-08-28 11:27 | PN ---
Progress Note (short form) - Note Progress Note: Resting comfortably. Heparin drip running. Last Vital Signs Temp Pulse Resp BP Pulse Ox 98.8 F 81 18 154/78 97 08/28/16 10:00 08/28/16 10:55 08/28/16 10:00 08/28/16 10:00 08/28/16 10:55 CBC, BMP 08/28/16 05:20 08/28/16 05:20 INR, PTT INR 1.25 (0.82-1.09) H 08/28/16 05:20 Fibrinogen 556.0 mg/dL (238-498) H 08/28/16 05:20 A/P 1. Gangrene associated with diabetes POD #2 s/p rle angio & tpa POD #1 s/p foolow-up thrombolysis w/ TPA, RLE angio, tibial artery angioplasty unsuccessful 08/27. Cont Heparin drip Cont ICU management Plan for BKA next week Medical optimization / clearance Dr. Sifuentes covering for Manzo why he's away
--- NOTE | 2016-08-28 12:38 | PN ---
Progress Note (short form) - Note Progress Note: Anesthesia POD#1 S/P Angiogram/angioplasty under mac VSS Still sleepy because of narcotics for pain. No N/V,no other Side effects seen. Fanny Chopra.
[2016-08-28] MEDS ORDERED: MAGNESIUM SULF 50% (8.12 MEQ/2 ML-1 GM VIAL) IVPB ONE (13:12)
[2016-08-28] MEDS ORDERED: HEMOQUE TEST 1 EACH EACH ONE (16:48)
[2016-08-28] MEDS: HEPARIN INFUSION - 500 ML IVPB SCH ×2 (16:56→19:00)
[2016-08-28] MEDS ORDERED: HYDROmorphone HCL CARPU-JECT 2 MG/1 ML DISP.SYRIN IVPUSH PRN (19:05)
[2016-08-28] MEDS ORDERED: HEPARIN NA (PORCINE) 5,000 UNITS/ML 1ML VIAL IVPUSH PRN ×4 (19:05)
[2016-08-28] MEDS ORDERED: HYDROmorphone HCL CARPU-JECT 1 MG/1 ML DISP.SYRIN IVPB PRN (19:05)
--- NOTE | 2016-08-28 20:05 | PN ---
Progress Note, Physician Chief Complaint: AWAKE ALERT, I SPOKE TO PATIENT'S SON SINDY I EXPLAINED TO HIM THAT HIS MOM WILL MOST LIKELY NEED BKA OF RIGHT LOWER EXTREMITY. - Current Medication List Current Medications: Active Medications Aclidinium [place] ([place] -) 1 puff IH BID [facility] Aspirin (Asa -) 81 mg PO DAILY [facility] Atorvastatin Calcium (Lipitor -) 20 mg PO HS [facility] Collagenase (Santyl -) 1 applic TP DAILY [facility] Docusate Sodium (Colace -) 100 mg PO BID [facility] Gabapentin (Neurontin -) 300 mg PO TID [facility] Heparin Sodium (Porcine) (Heparin -) 1,000 unit IVPUSH PRN PRN PRN Reason: Heparin Heparin Sodium (Porcine) (Heparin -) 5,000 unit IVPUSH PRN PRN PRN Reason: Heparin Hydromorphone HCl (Dilaudid Injection -) 2 mg IVPUSH Q4H PRN PRN Reason: PAIN Heparin Sodium/Dextrose (Heparin Infusion -) 500 mls @ 20 mls/hr IVPB TITR [facility] ; 1,000 UNITS/HR PRN Reason: Protocol Insulin Aspart (Novolog Vial Sliding Scale -) 1 vial SQ ACHS [facility] PRN Reason: Protocol Metoprolol Tartrate (Lopressor -) 50 mg PO DAILY [facility] Nicotine (Nicoderm Patch -) 14 mg TD DAILY [facility] Oxycodone HCl (Roxicodone -) 10 mg PO Q6H PRN Pancrelipase (Creon Dr 6,000 Units Capsule) 2 cap PO TIDCM [facility] Ranitidine HCl (Zantac -) 150 mg PO DAILY [facility] - Objective Vital Signs: Vital Signs Temperature 98 F 08/28/16 14:00 Pulse Rate 76 08/28/16 18:00 Respiratory Rate 18 08/28/16 18:00 Blood Pressure 164/89 08/28/16 18:00 O2 Sat by Pulse Oximetry (%) 97 08/28/16 10:55 Constitutional: Yes: Mild Distress Eyes: Yes: WNL HENT: Yes: WNL Neck: Yes: WNL Cardiovascular: Yes: WNL Respiratory: Yes: WNL Gastrointestinal: Yes: WNL Musculoskeletal: Yes: Muscle Pain, Muscle Weakness Extremities: Yes: Other (RIGHT FOOT TENDON EXPOSED WITH ULCERS) Edema: No Peripheral Pulses WNL: Yes Integumentary: Yes: Pressure Ulcer, Venous Stasis Changes, Other Wound/Incision: Yes: Dressing Dry and Intact Neurological: Yes: Pre-Existing Deficit ...Motor Strength: RLE Labs: CBC, BMP 08/28/16 05:20 08/28/16 05:20 INR, PTT INR 1.25 (0.82-1.09) H 08/28/16 05:20 Fibrinogen 556.0 mg/dL (238-498) H 08/28/16 05:20 Problem List - Problems (1) Ischemic foot Code(s): I99.8 - OTHER DISORDER OF CIRCULATORY SYSTEM (2) Abdominal pain Code(s): R10.9 - UNSPECIFIED ABDOMINAL PAIN Qualifiers: Abdominal location: unspecified location Qualified Code(s): R10.9 - Unspecified abdominal pain (3) Tobacco dependence Code(s): F17.200 - NICOTINE DEPENDENCE, UNSPECIFIED, UNCOMPLICATED (4) 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 I EXPLAINED TO HIM THE HEROIC ATTEMPTS BY VASC SURGERY HAS NOT BEEN SUCCESSFUL AND THAT MOST LIKELY HIS MOM WILL NEED BKA RIGHT LOWER EXTREMITY. RESULTS OF ARTERIOGRAM REVIEWED MONITOR RIGHT FOOT, IF NEEDED FURTHER VASC SURGERY AWAITING RESULT OF TODAY'S SURGERY STRICT ADA/LOW SODIUM/LOW FAT DIET COMPLIANCE DISCUSSED WITH PATIENT DILAUDID IVPB ADDED FOR BREAK THROUGH PAIN
[2016-08-28] MEDS: ATORVASTATIN CA 20 MG TABLET (FP) PO SCH (21:22)
[2016-08-28] MEDS ORDERED: INSULIN (NOVOLOG) ASPART 100 UNITS/ML 10ML VIAL ONE (22:07)
[2016-08-29] MEDS: oxyCODONE HCL 5 MG TABLET PO PRN (01:33)
[2016-08-29] MEDS: HYDROmorphone HCL CARPU-JECT 2 MG/1 ML DISP.SYRIN IVPB PRN ×6 (02:35→22:17)
[2016-08-29] MEDS: GABAPENTIN 300 MG CAPSULE (FP) PO SCH ×3 (06:24→22:16)
[2016-08-29] MEDS ORDERED: INSULIN (NOVOLOG) ASPART 100 UNITS/ML 10ML VIAL ONE ×3 (06:25→17:30)
[2016-08-29] MEDS: INSULIN SLIDING SCALE (NOVOLOG) 1 VIAL SQ SCH ×4 (06:26→22:16)
[2016-08-29 07:16] LABS: MCH 29.3 pg (25.7-33.7); MCHC 33.5 g/dl (32.0-36.0); MEAN CELL VOLUME 87.5 fl (80-96); MEAN PLT VOLUME 7.2 fl (7.5-11.1); PLATELET COUNT 516 K/MM3 (134-434); RDW 13.8 % (11.6-15.6); WHITE BLOOD COUNT 11.4 K/mm3 (4.0-10.0)
[2016-08-29 07:30] LABS: CALCIUM 7.9 mg/dL (8.5-10.1); CREATININE 0.7 mg/dL (0.55-1.02)
[2016-08-29] MEDS ORDERED: PT OWN MED DRAWER 7, Y5N ONE ×3 (09:38→18:26)
[2016-08-29] MEDS: DOCUSATE SODIUM 100 MG CAPSULE (FP) PO SCH ×2 (09:52→22:00)
[2016-08-29] MEDS: NICOTINE 14 MG/24 HOURS TOPICAL PATCH TD SCH (09:52)
[2016-08-29] MEDS: METOPROLOL TARTRATE 50 MG TABLET (FP) PO SCH (09:52)
[2016-08-29] MEDS: RANITIDINE HCL 150 MG TABLET (FP) PO SCH (09:52)
[2016-08-29] MEDS: ASPIRIN 81 MG CHEWABLE TABLETS PO SCH (09:52)
[2016-08-29] MEDS: LIPASE/PROTEASE/AMYLASE 6,000 UNIT CAPSULE PO SCH ×3 (09:53→18:36)
[2016-08-29] MEDS: ACLIDINIUM BROMIDE 400 MCG/INH AERO.POWD IH SCH ×2 (10:00→22:17)
[2016-08-29] MEDS: COLLAGENASE CLOSTRIDIUM HIST. 30 GRAMS TUBE TP SCH (14:38)
--- NOTE | 2016-08-29 15:21 | PN ---
Progress Note, Physician Chief Complaint: AWAKE ALERT, FAMILY BEDSIDE SCHEDULE FOR BKA NEXT WEEK OF RIGHT LOWER EXTREMITY - Current Medication List Current Medications: Active Medications Aclidinium [place] ([place] -) 1 puff IH BID [facility] Last Admin: 08/29/16 10:00 Dose: 1 puff Aspirin (Asa -) 81 mg PO DAILY [facility] Last Admin: 08/29/16 09:52 Dose: 81 mg Atorvastatin Calcium (Lipitor -) 20 mg PO HS [facility] Last Admin: 08/28/16 21:22 Dose: 20 mg Collagenase (Santyl -) 1 applic TP DAILY [facility] Last Admin: 08/29/16 14:38 Dose: 1 applic Docusate Sodium (Colace -) 100 mg PO BID [facility] Last Admin: 08/29/16 09:52 Dose: 100 mg Gabapentin (Neurontin -) 300 mg PO TID [facility] Last Admin: 08/29/16 06:24 Dose: 300 mg Heparin Sodium (Porcine) (Heparin -) 1,000 unit IVPUSH PRN PRN PRN Reason: Heparin Heparin Sodium (Porcine) (Heparin -) 5,000 unit IVPUSH PRN PRN PRN Reason: Heparin Hydromorphone HCl (Dilaudid Injection -) 2 mg IVPB Q4H PRN PRN Reason: PAIN Last Admin: 08/29/16 10:32 Dose: 2 mg Heparin Sodium/Dextrose (Heparin Infusion -) 500 mls @ 20 mls/hr IVPB TITR [facility] ; 1,000 UNITS/HR PRN Reason: Protocol Last Admin: 08/28/16 19:00 Dose: 20 mls/hr Insulin Aspart (Novolog Vial Sliding Scale -) 1 vial SQ ACHS [facility] PRN Reason: Protocol Last Admin: 08/29/16 12:01 Dose: 4 units Metoprolol Tartrate (Lopressor -) 50 mg PO DAILY [facility] Last Admin: 08/29/16 09:52 Dose: 50 mg Nicotine (Nicoderm Patch -) 14 mg TD DAILY [facility] Last Admin: 08/29/16 09:52 Dose: 14 mg Oxycodone HCl (Roxicodone -) 10 mg PO Q6H PRN Last Admin: 08/29/16 01:33 Dose: 10 mg Pancrelipase (Creon Dr 6,000 Units Capsule) 2 cap PO TIDCM [facility] Last Admin: 08/29/16 12:03 Dose: 2 cap Ranitidine HCl (Zantac -) 150 mg PO DAILY [facility] Last Admin: 08/29/16 09:52 Dose: 150 mg - Objective Vital Signs: Vital Signs Temperature 98.2 F 08/29/16 05:48 Pulse Rate 89 08/29/16 05:48 Respiratory Rate 20 08/29/16 05:48 Blood Pressure 139/73 08/29/16 05:48 O2 Sat by Pulse Oximetry (%) 97 08/28/16 21:00 Constitutional: Yes: Mild Distress Eyes: Yes: WNL HENT: Yes: WNL Neck: Yes: WNL Cardiovascular: Yes: WNL Respiratory: Yes: WNL Gastrointestinal: Yes: WNL Genitourinary: Yes: WNL Edema: No Edema: RLE: Trace Peripheral Pulses: Right Dorsalis Pedis: 1+ Integumentary: Yes: Pressure Ulcer (STAGE 4, TENDON OPEN) Wound/Incision: Yes: Dressing Dry and Intact Neurological: Yes: Pre-Existing Deficit, Weakness ...Motor Strength: RLE Psychiatric: Yes: Other Labs: CBC, BMP 08/29/16 06:10 08/29/16 06:10 INR, PTT INR 1.25 (0.82-1.09) H 08/28/16 05:20 Fibrinogen 556.0 mg/dL (238-498) H 08/28/16 05:20 Problem List - Problems (1) Ischemic foot Code(s): I99.8 - OTHER DISORDER OF CIRCULATORY SYSTEM (2) Abdominal pain Code(s): R10.9 - UNSPECIFIED ABDOMINAL PAIN Qualifiers: Abdominal location: unspecified location Qualified Code(s): R10.9 - Unspecified abdominal pain (3) Tobacco dependence Code(s): F17.200 - NICOTINE DEPENDENCE, UNSPECIFIED, UNCOMPLICATED (4) 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 I EXPLAINED TO HIM THE HEROIC ATTEMPTS BY VASC SURGERY HAS NOT BEEN SUCCESSFUL AND THAT MOST LIKELY HIS MOM WILL NEED BKA RIGHT LOWER EXTREMITY. RESULTS OF ARTERIOGRAM REVIEWED MONITOR RIGHT FOOT, IF NEEDED FURTHER VASC SURGERY AWAITING RESULT OF TODAY'S SURGERY STRICT ADA/LOW SODIUM/LOW FAT DIET COMPLIANCE DISCUSSED WITH PATIENT DILAUDID IVPB ADDED FOR BREAK THROUGH PAIN
[2016-08-29] MEDS: HEPARIN INFUSION - 500 ML IVPB SCH (21:16)
[2016-08-29] MEDS: ATORVASTATIN CA 20 MG TABLET (FP) PO SCH (22:04)
[2016-08-30] MEDS: oxyCODONE HCL 5 MG TABLET PO PRN (01:53)
[2016-08-30] MEDS: HYDROmorphone HCL CARPU-JECT 2 MG/1 ML DISP.SYRIN IVPB PRN ×4 (04:43→22:46)
[2016-08-30] MEDS: GABAPENTIN 300 MG CAPSULE (FP) PO SCH ×3 (06:57→21:39)
[2016-08-30] MEDS: INSULIN SLIDING SCALE (NOVOLOG) 1 VIAL SQ SCH ×4 (07:00→21:39)
[2016-08-30] MEDS ORDERED: PT OWN MED DRAWER 7, Y5N ONE ×3 (08:28→21:27)
[2016-08-30 08:59] LABS: MCH 29.7 pg (25.7-33.7); MCHC 33.6 g/dl (32.0-36.0); MEAN CELL VOLUME 88.2 fl (80-96); MEAN PLT VOLUME 6.9 fl (7.5-11.1); PLATELET COUNT 515 K/MM3 (134-434); RDW 13.9 % (11.6-15.6); WHITE BLOOD COUNT 9.8 K/mm3 (4.0-10.0)
[2016-08-30] MEDS: RANITIDINE HCL 150 MG TABLET (FP) PO SCH (09:55)
[2016-08-30] MEDS: DOCUSATE SODIUM 100 MG CAPSULE (FP) PO SCH ×2 (09:55→21:38)
[2016-08-30] MEDS: LIPASE/PROTEASE/AMYLASE 6,000 UNIT CAPSULE PO SCH ×3 (09:55→17:32)
[2016-08-30] MEDS: ASPIRIN 81 MG CHEWABLE TABLETS PO SCH (09:55)
[2016-08-30] MEDS: NICOTINE 14 MG/24 HOURS TOPICAL PATCH TD SCH (09:56)
[2016-08-30] MEDS: METOPROLOL TARTRATE 50 MG TABLET (FP) PO SCH (09:56)
--- NOTE | 2016-08-30 09:58 | PN ---
Progress Note, Physician Chief Complaint: EMOTIONAL SAYS NEEDS TO D/W FAMILY UPSET ABOUT PENDING BKA - Current Medication List Current Medications: Active Medications Aclidinium [place] (Tudorza -) 1 puff IH BID [facility] Last Admin: 08/29/16 22:17 Dose: 1 puff Aspirin (Asa -) 81 mg PO DAILY [facility] Last Admin: 08/29/16 09:52 Dose: 81 mg Atorvastatin Calcium (Lipitor -) 20 mg PO HS [facility] Last Admin: 08/29/16 22:04 Dose: 20 mg Collagenase (Santyl -) 1 applic TP DAILY [facility] Last Admin: 08/29/16 14:38 Dose: 1 applic Docusate Sodium (Colace -) 100 mg PO BID [facility] Last Admin: 08/29/16 22:00 Dose: 100 mg Gabapentin (Neurontin -) 300 mg PO TID [facility] Last Admin: 08/30/16 06:57 Dose: Not Given Heparin Sodium (Porcine) (Heparin -) 1,000 unit IVPUSH PRN PRN PRN Reason: Heparin Heparin Sodium (Porcine) (Heparin -) 5,000 unit IVPUSH PRN PRN PRN Reason: Heparin Hydromorphone HCl (Dilaudid Injection -) 2 mg IVPB Q4H PRN PRN Reason: PAIN Last Admin: 08/30/16 04:43 Dose: 2 mg Heparin Sodium/Dextrose (Heparin Infusion -) 500 mls @ 20 mls/hr IVPB TITR [facility] ; 1,000 UNITS/HR PRN Reason: Protocol Last Admin: 08/29/16 21:16 Dose: 20 mls/hr Insulin Aspart (Novolog Vial Sliding Scale -) 1 vial SQ ACHS [facility] PRN Reason: Protocol Last Admin: 08/30/16 07:00 Dose: 2 units Metoprolol Tartrate (Lopressor -) 50 mg PO DAILY [facility] Last Admin: 08/29/16 09:52 Dose: 50 mg Nicotine (Nicoderm Patch -) 14 mg TD DAILY [facility] Last Admin: 08/29/16 09:52 Dose: 14 mg Oxycodone HCl (Roxicodone -) 10 mg PO Q6H PRN Last Admin: 08/30/16 01:53 Dose: 10 mg Pancrelipase (Creon Dr 6,000 Units Capsule) 2 cap PO TIDCM [facility] Last Admin: 08/29/16 18:36 Dose: 2 cap Ranitidine HCl (Zantac -) 150 mg PO DAILY [facility] Last Admin: 08/29/16 09:52 Dose: 150 mg - Objective Vital Signs: Vital Signs Temperature 97.9 F 08/30/16 06:00 Pulse Rate 86 08/30/16 06:00 Respiratory Rate 20 08/30/16 06:00 Blood Pressure 157/87 08/30/16 06:00 O2 Sat by Pulse Oximetry (%) 97 08/29/16 21:00 Cardiovascular: Yes: WNL Respiratory: Yes: WNL Gastrointestinal: Yes: WNL Edema: No Wound/Incision: Yes: Dressing Dry and Intact Labs: CBC, BMP 08/30/16 08:40 08/29/16 06:10 INR, PTT INR 1.25 (0.82-1.09) H 08/28/16 05:20 Fibrinogen 556.0 mg/dL (238-498) H 08/28/16 05:20 Problem List - Problems (1) Hypertension Code(s): I10 - ESSENTIAL (PRIMARY) HYPERTENSION (2) Ischemic foot Code(s): I99.8 - OTHER DISORDER OF CIRCULATORY SYSTEM (3) 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 Code(s): E11.59 - TYPE 2 DIABETES MELLITUS WITH OTH CIRCULATORY COMPLICATIONS I70.209 - UNSP ATHSCL [place] ARTERIES OF EXTREMITIES, UNSP EXTREMITY Assessment/Plan (1) Ischemic foot Code(s): I99.8 - OTHER DISORDER OF CIRCULATORY SYSTEM (2) Abdominal pain Code(s): R10.9 - UNSPECIFIED ABDOMINAL PAIN Qualifiers: Abdominal location: unspecified location Qualified Code(s): R10.9 - Unspecified abdominal pain (3) Tobacco dependence Code(s): F17.200 - NICOTINE DEPENDENCE, UNSPECIFIED, UNCOMPLICATED (4) 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 Code(s): E11.59 - TYPE 2 DIABETES MELLITUS WITH OTH CIRCULATORY COMPLICATIONS I70.209 - UNSP ATHSCL [place] ARTERIES OF EXTREMITIES, UNSP EXTREMITY (5) Hypertension Code(s): I10 - ESSENTIAL (PRIMARY) HYPERTENSION (6) H/O ETOH abuse Code(s): Z87.898 - PERSONAL HISTORY OF OTHER SPECIFIED CONDITIONS Assessment/Plan SON SINDY/FAMILY AWARE -> HEROIC ATTEMPTS BY [facility] SURGERY HAS NOT BEEN SUCCESSFUL AND THAT MOST LIKELY HIS MOM WILL NEED BKA RIGHT LOWER EXTREMITY -> NEXT WEEK RESULTS OF ARTERIOGRAM REVIEWED MONITOR RIGHT FOOT, IF NEEDED STRICT ADA/LOW SODIUM/LOW FAT DIET COMPLIANCE DISCUSSED WITH PATIENT DILAUDID IVPB ADDED FOR BREAK THROUGH PAIN [employer]
[2016-08-30] MEDS: ACLIDINIUM BROMIDE 400 MCG/INH AERO.POWD IH SCH ×2 (09:59→21:39)
[2016-08-30] MEDS: HEPARIN INFUSION - 500 ML IVPB SCH ×2 (10:00→19:21)
[2016-08-30] MEDS: COLLAGENASE CLOSTRIDIUM HIST. 30 GRAMS TUBE TP SCH (10:00)
--- NOTE | 2016-08-30 14:58 | EKG ---
Test Reason : Blood Pressure : / mmHG Vent. Rate : 098 BPM Atrial Rate : 098 BPM P-R Int : 122 ms QRS Dur : 070 ms QT Int : 334 ms P-R-T Axes : 057 008 043 degrees QTc Int : 426 ms NORMAL SINUS RHYTHM POSSIBLE LEFT ATRIAL ENLARGEMENT WHEN COMPARED WITH ECG OF 08-MAR-2010 09:14, NO SIGNIFICANT CHANGE WAS FOUND Confirmed by DELMI ANDRADE MD ([id number]) on 08/30/2016 2:57:49 PM Referred By: Confirmed By:DELMI ANDRADE MD
[2016-08-30] MEDS: ATORVASTATIN CA 20 MG TABLET (FP) PO SCH (21:37)
[2016-08-31] MEDS: HYDROmorphone HCL CARPU-JECT 2 MG/1 ML DISP.SYRIN IVPB PRN ×5 (07:26→23:32)
[2016-08-31 07:55] LABS: MCH 29.5 pg (25.7-33.7); MCHC 33.5 g/dl (32.0-36.0); MEAN PLT VOLUME 7.6 fl (7.5-11.1); PLATELET COUNT 536 K/MM3 (134-434); RDW 14.3 % (11.6-15.6); WHITE BLOOD COUNT 11.6 K/mm3 (4.0-10.0)
[2016-08-31] MEDS: GABAPENTIN 300 MG CAPSULE (FP) PO SCH ×3 (07:56→21:12)
[2016-08-31] MEDS: INSULIN SLIDING SCALE (NOVOLOG) 1 VIAL SQ SCH ×4 (08:00→21:13)
[2016-08-31] MEDS ORDERED: PT OWN MED DRAWER 7, Y5N ONE ×7 (08:04→21:00)
[2016-08-31 08:28] LABS: ALBUMIN 1.2 g/dl (3.4-5.0); ANION GAP 10 (8-16); CALCIUM 8.4 mg/dL (8.5-10.1); CO2 25 mmol/L (21-32); GLUCOSE,RANDOM 183 mg/dL (74-106)
[2016-08-31 08:32] LABS: ALK PHOS 321 U/L (45-117); BILIRUBIN,TOTAL 0.2 mg/dL (0.2-1.0); CREATININE 0.6 mg/dL (0.55-1.02); SGOT/AST 11 U/L (15-37); SGPT/ALT < 6 U/L (12-78); TOT PROT 4.9 g/dl (6.4-8.2)
[2016-08-31] MEDS: LIPASE/PROTEASE/AMYLASE 6,000 UNIT CAPSULE PO SCH ×3 (08:37→17:14)
[2016-08-31] MEDS: HEPARIN INFUSION - 500 ML IVPB SCH ×2 (08:39→21:11)
[2016-08-31] MEDS: NICOTINE 14 MG/24 HOURS TOPICAL PATCH TD SCH (10:11)
[2016-08-31] MEDS: DOCUSATE SODIUM 100 MG CAPSULE (FP) PO SCH ×2 (10:11→21:12)
[2016-08-31] MEDS: METOPROLOL TARTRATE 50 MG TABLET (FP) PO SCH (10:11)
[2016-08-31] MEDS: RANITIDINE HCL 150 MG TABLET (FP) PO SCH (10:12)
[2016-08-31] MEDS: ASPIRIN 81 MG CHEWABLE TABLETS PO SCH (10:12)
[2016-08-31] MEDS: ACLIDINIUM BROMIDE 400 MCG/INH AERO.POWD IH SCH ×2 (10:13→21:13)
[2016-08-31] MEDS: COLLAGENASE CLOSTRIDIUM HIST. 30 GRAMS TUBE TP SCH (10:20)
[2016-08-31] MEDS ORDERED: INSULIN (NOVOLOG) ASPART 100 UNITS/ML 10ML VIAL ONE ×2 (11:55→17:06)
--- NOTE | 2016-08-31 12:37 | PN ---
Progress Note, Physician Chief Complaint: HAD D/W FAMILY & PATIENT - Current Medication List Current Medications: Active Medications Aclidinium [place] (Tudorza -) 1 puff IH BID [facility] Last Admin: 08/31/16 10:13 Dose: 1 puff Aspirin (Asa -) 81 mg PO DAILY [facility] Last Admin: 08/31/16 10:12 Dose: 81 mg Atorvastatin Calcium (Lipitor -) 20 mg PO HS [facility] Last Admin: 08/30/16 21:37 Dose: 20 mg Collagenase (Santyl -) 1 applic TP DAILY [facility] Last Admin: 08/31/16 10:20 Dose: 1 applic Docusate Sodium (Colace -) 100 mg PO BID [facility] Last Admin: 08/31/16 10:11 Dose: 100 mg Gabapentin (Neurontin -) 300 mg PO TID [facility] Last Admin: 08/31/16 07:56 Dose: Not Given Heparin Sodium (Porcine) (Heparin -) 1,000 unit IVPUSH PRN PRN PRN Reason: Heparin Last Admin: 08/31/16 08:31 Dose: 1,000 unit Heparin Sodium (Porcine) (Heparin -) 5,000 unit IVPUSH PRN PRN PRN Reason: Heparin Hydromorphone HCl (Dilaudid Injection -) 2 mg IVPB Q4H PRN PRN Reason: PAIN Last Admin: 08/31/16 11:35 Dose: 2 mg Heparin Sodium/Dextrose (Heparin Infusion -) 500 mls @ 20 mls/hr IVPB TITR [facility] ; 1,000 UNITS/HR PRN Reason: Protocol Last Admin: 08/31/16 08:39 Dose: 24 mls/hr Insulin Aspart (Novolog Vial Sliding Scale -) 1 vial SQ ACHS [facility] PRN Reason: Protocol Last Admin: 08/31/16 11:56 Dose: 2 units Metoprolol Tartrate (Lopressor -) 50 mg PO DAILY [facility] Last Admin: 08/31/16 10:11 Dose: 50 mg Nicotine (Nicoderm Patch -) 14 mg TD DAILY [facility] Last Admin: 08/31/16 10:11 Dose: 14 mg Oxycodone HCl (Roxicodone -) 10 mg PO Q6H PRN Last Admin: 08/30/16 01:53 Dose: 10 mg Pancrelipase (Creon Dr 6,000 Units Capsule) 2 cap PO TIDCM [facility] Last Admin: 08/31/16 08:37 Dose: 2 cap Ranitidine HCl (Zantac -) 150 mg PO DAILY [facility] Last Admin: 08/31/16 10:12 Dose: 150 mg - Objective Vital Signs: Vital Signs Temperature 98.5 F 08/31/16 08:00 Pulse Rate 100 H 08/31/16 08:00 Respiratory Rate 18 08/31/16 09:00 Blood Pressure 138/92 08/31/16 08:00 O2 Sat by Pulse Oximetry (%) 97 08/31/16 09:00 Cardiovascular: Yes: WNL Respiratory: Yes: WNL Gastrointestinal: Yes: WNL Edema: No Wound/Incision: Yes: Dressing Dry and Intact Labs: CBC, BMP 08/31/16 06:30 08/31/16 06:30 INR, PTT INR 1.25 (0.82-1.09) H 08/28/16 05:20 Fibrinogen 556.0 mg/dL (238-498) H 08/28/16 05:20 Problem List - Problems (1) Hypertension Code(s): I10 - ESSENTIAL (PRIMARY) HYPERTENSION (2) Ischemic foot Code(s): I99.8 - OTHER DISORDER OF CIRCULATORY SYSTEM (3) 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 Code(s): E11.59 - TYPE 2 DIABETES MELLITUS WITH OTH CIRCULATORY COMPLICATIONS I70.209 - UNSP ATHSCL [place] ARTERIES OF EXTREMITIES, UNSP EXTREMITY Assessment/Plan (1) Ischemic foot Code(s): I99.8 - OTHER DISORDER OF CIRCULATORY SYSTEM (2) Abdominal pain Code(s): R10.9 - UNSPECIFIED ABDOMINAL PAIN Qualifiers: Abdominal location: unspecified location Qualified Code(s): R10.9 - Unspecified abdominal pain (3) Tobacco dependence Code(s): F17.200 - NICOTINE DEPENDENCE, UNSPECIFIED, UNCOMPLICATED (4) 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 Code(s): E11.59 - TYPE 2 DIABETES MELLITUS WITH OTH CIRCULATORY COMPLICATIONS I70.209 - UNSP ATHSCL [place] ARTERIES OF EXTREMITIES, UNSP EXTREMITY (5) Hypertension Code(s): I10 - ESSENTIAL (PRIMARY) HYPERTENSION (6) H/O ETOH abuse Code(s): Z87.898 - PERSONAL HISTORY OF OTHER SPECIFIED CONDITIONS Assessment/Plan SON SINDY/FAMILY AWARE -> HEROIC ATTEMPTS BY VASC SURGERY HAS NOT BEEN SUCCESSFUL AND THAT MOST LIKELY HIS MOM WILL NEED BKA RIGHT LOWER EXTREMITY -> NEXT WEEK RESULTS OF ARTERIOGRAM REVIEWED MONITOR RIGHT FOOT, IF NEEDED STRICT ADA/LOW SODIUM/LOW FAT DIET COMPLIANCE DISCUSSED WITH PATIENT DILAUDID IVPB ADDED FOR BREAK THROUGH PAIN [employer]
[2016-08-31] MEDS: ATORVASTATIN CA 20 MG TABLET (FP) PO SCH (21:13)
[2016-09-01] MEDS ORDERED: LIDOCAINE HCL 1%, 10 MG/ML (50 mL VIAL) SQ ONE (01:35)
--- NOTE | 2016-09-01 02:11 | HOSP ---
Subjective - Review of Symptoms Events since last encounter: Called to place IV line for heparin drip. Multiple attempts were made by nurses and ICU nurses and pt only wanted one more attempt at gaining IV access when we were called. Pt c/o pain at sites where IV line attempts were made. Both Dr. Burleson and ICU LINE RUNNER Joana Fajardo attempted to gain IV access with ultrasound guidance. Multiple attempts were made (with pt agreeing to multiple attempts) at this time w/use of ultrasound but IV access was unobtainable. Physical Examination Vital Signs: Vital Signs Temperature 99 F 08/31/16 22:00 Pulse Rate 84 08/31/16 22:00 Respiratory Rate 18 08/31/16 22:00 Blood Pressure 156/86 08/31/16 22:00 O2 Sat by Pulse Oximetry (%) 98 08/31/16 21:00 Constitutional: Yes: Anxious Labs: CBC, BMP 08/31/16 06:30 08/31/16 06:30 Hospitalist Encounter Assessment: Heparin drip -IV access despite multiple attempts w/ultrasound guidance was unobtainable -May need PICC line for drip Visit type - Emergency Visit Emergency Visit: Yes ED Registration Date: 08/21/16 Care time: The patient presented to the Emergency Department on the above date and was hospitalized for further evaluation of their emergent condition. - New Patient This patient is new to me today: Yes Date on this admission: 09/01/16 - Critical Care Critical Care patient: No
[2016-09-01] MEDS ORDERED: HYDROmorphone HCL CARPU-JECT 2 MG/1 ML DISP.SYRIN IM PRN (02:30)
[2016-09-01] MEDS ORDERED: INSULIN (NOVOLOG) ASPART 100 UNITS/ML 10ML VIAL ONE (06:23)
[2016-09-01] MEDS: GABAPENTIN 300 MG CAPSULE (FP) PO SCH ×3 (06:25→21:53)
[2016-09-01] MEDS: INSULIN SLIDING SCALE (NOVOLOG) 1 VIAL SQ SCH ×5 (06:25→21:53)
--- NOTE | 2016-09-01 07:16 | PN ---
Progress Note, Physician Chief Complaint: no complaints - Current Medication List Current Medications: Active Medications Aclidinium [place] ([place]udorza -) 1 puff IH BID [facility] Last Admin: 08/31/16 21:13 Dose: 1 puff Aspirin (Asa -) 81 mg PO DAILY [facility] Last Admin: 08/31/16 10:12 Dose: 81 mg Atorvastatin Calcium (Lipitor -) 20 mg PO HS [facility] Last Admin: 08/31/16 21:13 Dose: 20 mg Collagenase (Santyl -) 1 applic TP DAILY [facility] Last Admin: 08/31/16 10:20 Dose: 1 applic Docusate Sodium (Colace -) 100 mg PO BID [facility] Last Admin: 08/31/16 21:12 Dose: 100 mg Gabapentin (Neurontin -) 300 mg PO TID [facility] Last Admin: 09/01/16 06:25 Dose: 300 mg Heparin Sodium (Porcine) (Heparin -) 1,000 unit IVPUSH PRN PRN PRN Reason: Heparin Last Admin: 08/31/16 08:31 Dose: 1,000 unit Heparin Sodium (Porcine) (Heparin -) 5,000 unit IVPUSH PRN PRN PRN Reason: Heparin Hydromorphone HCl (Dilaudid Injection -) 2 mg IVPB Q4H PRN PRN Reason: PAIN Last Admin: 08/31/16 23:32 Dose: 2 mg Hydromorphone HCl (Dilaudid Injection -) 2 mg IM Q4H PRN PRN Reason: PAIN Heparin Sodium/Dextrose (Heparin Infusion -) 500 mls @ 20 mls/hr IVPB TITR [facility] ; 1,000 UNITS/HR PRN Reason: Protocol Last Admin: 08/31/16 21:11 Dose: 24 mls/hr Insulin Aspart (Novolog Vial Sliding Scale -) 1 vial SQ ACHS [facility] PRN Reason: Protocol Last Admin: 09/01/16 06:25 Dose: 2 units Metoprolol Tartrate (Lopressor -) 50 mg PO DAILY [facility] Last Admin: 08/31/16 10:11 Dose: 50 mg Nicotine (Nicoderm Patch -) 14 mg TD DAILY [facility] Last Admin: 08/31/16 10:11 Dose: 14 mg Oxycodone HCl (Roxicodone -) 10 mg PO Q6H PRN Last Admin: 08/30/16 01:53 Dose: 10 mg Pancrelipase (Creon Dr 6,000 Units Capsule) 2 cap PO TIDCM [facility] Last Admin: 08/31/16 17:14 Dose: 2 cap Ranitidine HCl (Zantac -) 150 mg PO DAILY [facility] Last Admin: 08/31/16 10:12 Dose: 150 mg - Objective Vital Signs: Vital Signs Temperature 97.8 F 09/01/16 06:00 Pulse Rate 92 H 09/01/16 06:00 Respiratory Rate 20 09/01/16 06:00 Blood Pressure 154/83 09/01/16 06:00 O2 Sat by Pulse Oximetry (%) 98 08/31/16 21:00 Cardiovascular: Yes: WNL Respiratory: Yes: WNL Gastrointestinal: Yes: WNL Edema: No Wound/Incision: Yes: Dressing Dry and Intact Labs: CBC, BMP 08/31/16 06:30 08/31/16 06:30 INR, PTT INR 1.25 (0.82-1.09) H 08/28/16 05:20 Fibrinogen 556.0 mg/dL (238-498) H 08/28/16 05:20 Problem List - Problems (1) Hypertension Code(s): I10 - ESSENTIAL (PRIMARY) HYPERTENSION (2) Ischemic foot Code(s): I99.8 - OTHER DISORDER OF CIRCULATORY SYSTEM (3) 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 Code(s): E11.59 - TYPE 2 DIABETES MELLITUS WITH OTH CIRCULATORY COMPLICATIONS I70.209 - UNSP ATHSCL [place] ARTERIES OF EXTREMITIES, UNSP EXTREMITY Assessment/Plan (1) Ischemic foot Code(s): I99.8 - OTHER DISORDER OF CIRCULATORY SYSTEM (2) Abdominal pain Code(s): R10.9 - UNSPECIFIED ABDOMINAL PAIN Qualifiers: Abdominal location: unspecified location Qualified Code(s): R10.9 - Unspecified abdominal pain (3) Tobacco dependence Code(s): F17.200 - NICOTINE DEPENDENCE, UNSPECIFIED, UNCOMPLICATED (4) 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 Code(s): E11.59 - TYPE 2 DIABETES MELLITUS WITH OTH CIRCULATORY COMPLICATIONS I70.209 - UNSP ATHSCL [place] ARTERIES OF EXTREMITIES, UNSP EXTREMITY (5) Hypertension Code(s): I10 - ESSENTIAL (PRIMARY) HYPERTENSION (6) H/O ETOH abuse Code(s): Z87.898 - PERSONAL HISTORY OF OTHER SPECIFIED CONDITIONS Assessment/Plan SON SINDY/FAMILY AWARE -> HEROIC ATTEMPTS BY VASC SURGERY HAS NOT BEEN SUCCESSFUL AND THAT MOST LIKELY HIS MOM WILL NEED BKA RIGHT LOWER EXTREMITY -> THIS WEEK RESULTS OF ARTERIOGRAM REVIEWED MONITOR RIGHT FOOT, IF NEEDED STRICT ADA/LOW SODIUM/LOW FAT DIET COMPLIANCE DISCUSSED WITH PATIENT DILAUDID IVPB ADDED FOR BREAK THROUGH PAIN NO IV ACCESS -> VASC SURG FOR IV ACCESS PASTOR GARG
[2016-09-01 08:56] LABS: MCH 29.4 pg (25.7-33.7); MCHC 32.9 g/dl (32.0-36.0); MEAN CELL VOLUME 89.3 fl (80-96); MEAN PLT VOLUME 7.7 fl (7.5-11.1); PLATELET COUNT 501 K/MM3 (134-434); RDW 14.1 % (11.6-15.6); WHITE BLOOD COUNT 8.6 K/mm3 (4.0-10.0)
[2016-09-01 09:20] LABS: ALBUMIN 1.2 g/dl (3.4-5.0); ANION GAP 5 (8-16); CALCIUM 8.4 mg/dL (8.5-10.1); CO2 30 mmol/L (21-32); CREATININE 0.7 mg/dL (0.55-1.02); GLUCOSE,RANDOM 103 mg/dL (74-106); SGPT/ALT 8 U/L (12-78)
[2016-09-01 09:22] LABS: ALK PHOS 334 U/L (45-117); BILIRUBIN,TOTAL 0.2 mg/dL (0.2-1.0); SGOT/AST 15 U/L (15-37)
[2016-09-01] MEDS: RANITIDINE HCL 150 MG TABLET (FP) PO SCH (09:57)
[2016-09-01] MEDS: DOCUSATE SODIUM 100 MG CAPSULE (FP) PO SCH ×2 (09:58→21:53)
[2016-09-01] MEDS: ACLIDINIUM BROMIDE 400 MCG/INH AERO.POWD IH SCH ×2 (09:58→21:54)
[2016-09-01] MEDS: METOPROLOL TARTRATE 50 MG TABLET (FP) PO SCH (09:58)
[2016-09-01] MEDS: ASPIRIN 81 MG CHEWABLE TABLETS PO SCH (09:58)
[2016-09-01] MEDS: NICOTINE 14 MG/24 HOURS TOPICAL PATCH TD SCH (09:58)
[2016-09-01] MEDS: COLLAGENASE CLOSTRIDIUM HIST. 30 GRAMS TUBE TP SCH (10:00)
--- NOTE | 2016-09-01 10:56 | PN ---
Progress Note (short form) - Note Progress Note: Vascular Surgery Pt will need bka. Will need medical and cardiology clearance. Will do on thu if cleared. Jose Manzo DO
[2016-09-01] MEDS: LIPASE/PROTEASE/AMYLASE 6,000 UNIT CAPSULE PO SCH ×3 (11:25→17:08)
[2016-09-01] MEDS: HYDROmorphone HCL CARPU-JECT 2 MG/1 ML DISP.SYRIN IVPB PRN ×2 (17:01→22:07)
--- NOTE | 2016-09-01 17:04 | PROC ---
Procedure Note Procedure: Called by patient' RN as they are having a difficult time placing a peripheral line after multiple attempts. Patient was placed in [place]. Right neck (EJ) cleansed with chlorhexidine. A 20ga angicath inserted. Aspirated / flushes without resistance. Occlusive dressing applied. Ok to use line for phlebotomy draws. Make sure the operator technician draws off 5cc. Collects sample THEN flushes line. Pateint tolerated procedure well.
[2016-09-01] MEDS: HEPARIN INFUSION - 500 ML IVPB SCH ×2 (17:11→17:14)
[2016-09-01] MEDS ORDERED: HEPARIN NA (PORCINE) 5,000 UNITS/ML 1ML VIAL SQ ONE (17:11)
[2016-09-01] MEDS ORDERED: HEPARIN NA (PORCINE) 5,000 UNITS/ML 1ML VIAL IVPUSH PRN ×2 (17:13→17:15)
--- NOTE | 2016-09-01 20:28 | PN ---
Progress Note (short form) - Note Progress Note: Vascular Surgery Pt seen and examined. Spoke to entire family at bedside. Will do BKA on wed at 1130 Cardiology clearance pending Jose Manzo DO
[2016-09-01] MEDS ORDERED: PT OWN MED DRAWER 7, Y5N ONE ×2 (21:48→22:00)
[2016-09-01] MEDS: ATORVASTATIN CA 20 MG TABLET (FP) PO SCH (21:53)
[2016-09-01] MEDS ORDERED: HYDROmorphone HCL CARPU-JECT 2 MG/1 ML DISP.SYRIN ONE (22:00)
[2016-09-02] MEDS ORDERED: HYDROmorphone HCL CARPU-JECT 2 MG/1 ML DISP.SYRIN ONE (05:42)
[2016-09-02] MEDS: INSULIN SLIDING SCALE (NOVOLOG) 1 VIAL SQ SCH ×4 (06:42→21:29)
[2016-09-02] MEDS: GABAPENTIN 300 MG CAPSULE (FP) PO SCH ×3 (06:42→21:23)
[2016-09-02] MEDS ORDERED: INSULIN (NOVOLOG) ASPART 100 UNITS/ML 10ML VIAL ONE ×3 (06:50→21:28)
[2016-09-02] MEDS ORDERED: PT OWN MED DRAWER 7, Y5N ONE ×2 (08:14→10:02)
[2016-09-02] MEDS: LIPASE/PROTEASE/AMYLASE 6,000 UNIT CAPSULE PO SCH ×3 (08:28→17:34)
[2016-09-02 08:45] LABS: MCH 29.3 pg (25.7-33.7); MEAN CELL VOLUME 88.9 fl (80-96); MEAN PLT VOLUME 7.1 fl (7.5-11.1); PLATELET COUNT 556 K/MM3 (134-434); RDW 14.4 % (11.6-15.6); WHITE BLOOD COUNT 10.4 K/mm3 (4.0-10.0)
[2016-09-02] MEDS: HYDROmorphone HCL CARPU-JECT 2 MG/1 ML DISP.SYRIN IVPB PRN ×4 (08:54→21:21)
[2016-09-02 09:15] LABS: ALBUMIN 1.2 g/dl (3.4-5.0); ALK PHOS 334 U/L (45-117); ANION GAP 9 (8-16); BILIRUBIN,TOTAL 0.2 mg/dL (0.2-1.0); CALCIUM 8.6 mg/dL (8.5-10.1); CO2 28 mmol/L (21-32); CREATININE 0.8 mg/dL (0.55-1.02); GLUCOSE,RANDOM 122 mg/dL (74-106); SGOT/AST 14 U/L (15-37); SGPT/ALT 7 U/L (12-78); TOT PROT 5.2 g/dl (6.4-8.2)
[2016-09-02] MEDS ORDERED: LORazepam 0.5 MG TABLET PO PRN (09:42)
[2016-09-02] MEDS: NICOTINE 14 MG/24 HOURS TOPICAL PATCH TD SCH (10:34)
[2016-09-02] MEDS: DOCUSATE SODIUM 100 MG CAPSULE (FP) PO SCH ×2 (10:34→21:23)
[2016-09-02] MEDS: METOPROLOL TARTRATE 50 MG TABLET (FP) PO SCH (10:34)
[2016-09-02] MEDS: ACLIDINIUM BROMIDE 400 MCG/INH AERO.POWD IH SCH ×2 (10:34→21:33)
[2016-09-02] MEDS: ASPIRIN 81 MG CHEWABLE TABLETS PO SCH (10:34)
[2016-09-02] MEDS: RANITIDINE HCL 150 MG TABLET (FP) PO SCH (10:34)
[2016-09-02] MEDS: COLLAGENASE CLOSTRIDIUM HIST. 30 GRAMS TUBE TP SCH (10:35)
--- NOTE | 2016-09-02 15:13 | CON.CARD ---
Consult Consult Specialty:: Cardiology Referred by:: Dr. Jose Manzo Reason for Consultation:: Pre-operative cardiac evaluation - History of Present Illness Chief Complaint: PAD, pending amputation History of Present Illness: 51 yo female smoker with prior history of alcohol abuse, asthma, DM, and PAD, who is currently pending below knee amputation of right lower extremity tomorrow (09/03/16). Cardiology consult was requested for pre-operative cardiac evaluation. Patient denies exertional chest pain or dyspnea. Denies hematemesis , melena, or hematochezia. Denies any prior cardiac evaluation. - History Source History Provided By: Patient Limitations to Obtaining History: No Limitations - Past Medical History Cardio/Vascular: Yes: HTN, Other (PAD) Pulmonary: Yes: Asthma Gastrointestinal: Yes: Pancreatitis Hepatobiliary: Yes: Other (ALCOHOLISM STOPPED ONE YEAR AGO) Renal/: Yes: Other (PYLEONEPHRITIS RECENTLY AT [facility]) ...: No Endocrine: Yes: Diabetes Mellitus - Past Surgical History Past Surgical History: Yes: Cholecystectomy - Alcohol/Substance Use Hx Alcohol Use: No ( ABOVE) - Smoking History Smoking history: Current every day smoker Have you smoked in the past 12 months: Yes Aproximately how many cigarettes per day: 6 Home Medications - Allergies Allergies/Adverse Reactions: Allergies Allergy/AdvReac Type Severity Reaction Status Date / Time No Known Allergies Allergy Verified 08/21/16 10:21 - Home Medications Home Medications: Ambulatory Orders Aspirin [ASA -] 81 mg PO DAILY 05/04/15 Diclofenac Sodium [Voltaren-Xr] 100 mg PO DAILY 05/04/15 Famotidine [Pepcid] 20 mg PO DAILY #30 05/04/15 Gabapentin [Neurontin -] 300 mg PO Q8H 05/04/15 Insulin (Levemir) [Levemir Vial] 60 unit SQ DAILY 05/04/15 Insulin Lispro Protamin/Lispro [Humalog Mix 75-25 Kwikpen] 30 unit SQ BID Metformin HCl [Glucophage] 1,000 mg PO BID 05/04/15 Oxycodone HCl/Acetaminophen [Percocet 10-325 mg Tablet] 1 tab PO Q6H PRN Atorvastatin Calcium 20 mg PO HS 08/21/16 Cefdinir [Omnicef -] 300 mg PO DAILY 08/21/16 Metoprolol Tartrate 50 mg PO DAILY 08/21/16 Metronidazole [Flagyl -] 500 mg PO DAILY 08/21/16 Oxycodone HCl/Acetaminophen [Endocet 5-325 Tablet] 1 each PO DAILY 08/21/16 Tiotropium [place] [Spiriva] 1 inh PO DAILY 08/21/16 Family Disease History - Family Disease History Family History: Unremarkable (no premature CAD or SCD) Review of Systems - Review of Systems Constitutional: reports: No Symptoms Eyes: reports: No Symptoms HENT: reports: No Symptoms Cardiovascular: reports: No Symptoms Respiratory: reports: No Symptoms Gastrointestinal: reports: No Symptoms Genitourinary: reports: No Symptoms Hematology/Lymphatic: reports: No Symptoms Psychiatric: reports: No Symptoms Vital Signs: Vital Signs Temperature 98.5 F 09/02/16 13:47 Pulse Rate 82 09/02/16 13:47 Respiratory Rate 20 09/02/16 13:47 Blood Pressure 135/86 09/02/16 09:15 O2 Sat by Pulse Oximetry (%) 96 09/02/16 09:00 Constitutional: Yes: Well Nourished, No Distress Eyes: Yes: Conjunctiva Clear, EOM Intact HENT: Yes: Atraumatic, Normocephalic Neck: Yes: WNL Respiratory: Yes: CTA Bilaterally Gastrointestinal: Yes: Normal Bowel Sounds, Soft. No: Tenderness Cardiovascular: Yes: Regular Rate and Rhythm JVD: No Carotid Bruit: No Heart Sounds: Yes: S1, S2 Murmur: No: Systolic Murmur Neurological: Yes: Alert, Oriented, Cran Nerves II-XII Intact Psychiatric: Yes: WNL - Other Data Labs, Other Data: CBC, BMP 09/02/16 08:00 09/02/16 08:00 INR, PTT INR 1.25 (0.82-1.09) H 08/28/16 05:20 Fibrinogen 556.0 mg/dL (238-498) H 08/28/16 05:20 08/27/16 ECG: Sinus rhythm, possible LA enlargement Imaging - Results Chest X-ray: Report Reviewed (08/21/16: No acute pulmonary process), Image Reviewed Assessment/Plan 51 yo female smoker with prior history of alcohol abuse, asthma, DM, and PAD. Currently pending below knee amputation of right lower extremity tomorrow. Cardiology consulted for pre-operative cardiac evaluation. Patient does not have any cardiac contraindications to her needed surgery. She may proceed with acceptable cardiac risk and without further cardiac work-up or intervention as this will only delay her needed surgery and not significantly alter her rosalba-operative management. Will continue patient's beta-farshad lonnie-operatively, but change to metoprolol succinate 50 mg po daily. Will see prn. Please call with questions.
--- NOTE | 2016-09-02 16:01 | PN ---
Progress Note, Physician Chief Complaint: AWAKE ALERT POSSIBLE SURGERY TOMORROW RIGHT FOOT BKA - Current Medication List Current Medications: Active Medications Aclidinium [place] (Tudorza -) 1 puff IH BID [facility] Last Admin: 09/02/16 10:34 Dose: 1 puff Aspirin (Asa -) 81 mg PO DAILY [facility] Last Admin: 09/02/16 10:34 Dose: 81 mg Atorvastatin Calcium (Lipitor -) 20 mg PO HS [facility] Last Admin: 09/01/16 21:53 Dose: 20 mg Collagenase (Santyl -) 1 applic TP DAILY [facility] Last Admin: 09/02/16 10:35 Dose: 1 applic Docusate Sodium (Colace -) 100 mg PO BID [facility] Last Admin: 09/02/16 10:34 Dose: 100 mg Gabapentin (Neurontin -) 300 mg PO TID [facility] Last Admin: 09/02/16 14:23 Dose: 300 mg Heparin Sodium (Porcine) (Heparin -) 1,000 unit IVPUSH PRN PRN PRN Reason: Heparin Heparin Sodium (Porcine) (Heparin -) 5,000 unit IVPUSH PRN PRN PRN Reason: Heparin Hydromorphone HCl (Dilaudid Injection -) 2 mg IVPB Q4H PRN PRN Reason: PAIN Last Admin: 09/02/16 12:56 Dose: 2 mg Heparin Sodium/Dextrose (Heparin Infusion -) 500 mls @ 16 mls/hr IVPB TITR BOLIVAR ; 800 UNITS/HR PRN Reason: Protocol Last Admin: 09/01/16 17:14 Dose: 16 mls/hr Insulin Aspart (Novolog Vial Sliding Scale -) 1 vial SQ ACHS [facility] PRN Reason: Protocol Last Admin: 09/02/16 11:43 Dose: 8 units Lorazepam (Ativan -) 0.5 mg PO BID PRN PRN Reason: ANXIETY Metoprolol Succinate (Toprol Xl -) 50 mg PO DAILY [facility] Nicotine (Nicoderm Patch -) 14 mg TD DAILY [facility] Last Admin: 09/02/16 10:34 Dose: 14 mg Pancrelipase (Creon Dr 6,000 Units Capsule) 2 cap PO TIDCM [facility] Last Admin: 09/02/16 11:43 Dose: 2 cap Ranitidine HCl (Zantac -) 150 mg PO DAILY [facility] Last Admin: 09/02/16 10:34 Dose: 150 mg - Objective Vital Signs: Vital Signs Temperature 98.5 F 09/02/16 13:47 Pulse Rate 82 09/02/16 13:47 Respiratory Rate 20 09/02/16 13:47 Blood Pressure 135/86 09/02/16 09:15 O2 Sat by Pulse Oximetry (%) 96 09/02/16 09:00 Constitutional: Yes: Mild Distress Eyes: Yes: WNL HENT: Yes: WNL Neck: Yes: WNL Cardiovascular: Yes: WNL Respiratory: Yes: WNL Gastrointestinal: Yes: WNL Genitourinary: Yes: WNL Musculoskeletal: Yes: Muscle Weakness Extremities: Yes: Deformity Edema: No Edema: RLE: Trace Peripheral Pulses WNL: No Peripheral Pulses: Right Dorsalis Pedis: 0 Integumentary: Yes: Laceration, Pressure Ulcer, Venous Stasis Changes Wound/Incision: Yes: Dressing Dry and Intact, Unapproximated Neurological: Yes: Pre-Existing Deficit, Weakness ...Motor Strength: RLE Psychiatric: Yes: WNL Labs: CBC, BMP 09/02/16 08:00 09/02/16 08:00 INR, PTT INR 1.25 (0.82-1.09) H 08/28/16 05:20 Fibrinogen 556.0 mg/dL (238-498) H 08/28/16 05:20 Problem List - Problems (1) Ischemic foot Code(s): I99.8 - OTHER DISORDER OF CIRCULATORY SYSTEM (2) Abdominal pain Code(s): R10.9 - UNSPECIFIED ABDOMINAL PAIN Qualifiers: Abdominal location: unspecified location Qualified Code(s): R10.9 - Unspecified abdominal pain (3) Tobacco dependence Code(s): F17.200 - NICOTINE DEPENDENCE, UNSPECIFIED, UNCOMPLICATED (4) 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 I EXPLAINED TO HIM THE HEROIC ATTEMPTS BY [facility] SURGERY HAS NOT BEEN SUCCESSFUL AND THAT MOST LIKELY HIS MOM WILL NEED BKA RIGHT LOWER EXTREMITY. RESULTS OF ARTERIOGRAM REVIEWED MONITOR RIGHT FOOT, IF NEEDED FURTHER VASC SURGERY AWAITING RESULT OF TOMORROW'S SURGERY BKA STRICT ADA/LOW SODIUM/LOW FAT DIET COMPLIANCE DISCUSSED WITH PATIENT DILAUDID IVPB ADDED FOR BREAK THROUGH PAIN
[2016-09-02] MEDS: HEPARIN INFUSION - 500 ML IVPB SCH (16:07)
[2016-09-02] MEDS: ATORVASTATIN CA 20 MG TABLET (FP) PO SCH (21:23)
[2016-09-03] MEDS: HYDROmorphone HCL CARPU-JECT 2 MG/1 ML DISP.SYRIN IVPB PRN ×3 (04:38→12:31)
[2016-09-03] MEDS: GABAPENTIN 300 MG CAPSULE (FP) PO SCH ×3 (05:33→21:21)
[2016-09-03] MEDS: INSULIN SLIDING SCALE (NOVOLOG) 1 VIAL SQ SCH ×4 (06:45→21:20)
[2016-09-03 07:12] LABS: MCH 28.8 pg (25.7-33.7); MCHC 32.1 g/dl (32.0-36.0); MEAN CELL VOLUME 89.6 fl (80-96); MEAN PLT VOLUME 7.5 fl (7.5-11.1); PLATELET COUNT 532 K/MM3 (134-434); RDW 14.8 % (11.6-15.6); WHITE BLOOD COUNT 10.5 K/mm3 (4.0-10.0)
[2016-09-03] MEDS: LIPASE/PROTEASE/AMYLASE 6,000 UNIT CAPSULE PO SCH ×3 (08:00→18:24)
[2016-09-03] MEDS: ASPIRIN 81 MG CHEWABLE TABLETS PO SCH (09:45)
[2016-09-03] MEDS: DOCUSATE SODIUM 100 MG CAPSULE (FP) PO SCH ×2 (09:45→21:21)
[2016-09-03] MEDS: RANITIDINE HCL 150 MG TABLET (FP) PO SCH (09:45)
[2016-09-03] MEDS ORDERED: METOPROLOL SUCCINATE 50 MG TAB.SR.24H (FP) PO SCH (10:00)
[2016-09-03] MEDS ORDERED: PT OWN MED DRAWER 7, Y5N ONE ×3 (11:16→21:10)
[2016-09-03] MEDS: NICOTINE 14 MG/24 HOURS TOPICAL PATCH TD SCH (11:17)
[2016-09-03] MEDS: COLLAGENASE CLOSTRIDIUM HIST. 30 GRAMS TUBE TP SCH (11:18)
[2016-09-03] MEDS: ACLIDINIUM BROMIDE 400 MCG/INH AERO.POWD IH SCH ×2 (11:22→21:21)
[2016-09-03] MEDS ORDERED: LORAZEPAM CARPU-JECT 2 MG/ML DISP.SYRIN IM ONE (11:54)
--- NOTE | 2016-09-03 11:57 | PN ---
Progress Note, Physician Chief Complaint: AWAKE ALERT NERVOUS FAMILY BEDSIDE - Current Medication List Current Medications: Active Medications Aclidinium [place] (Tudorza -) 1 puff IH BID [facility] Last Admin: 09/03/16 11:22 Dose: 1 puff Aspirin (Asa -) 81 mg PO DAILY [facility] Last Admin: 09/03/16 09:45 Dose: Not Given Atorvastatin Calcium (Lipitor -) 20 mg PO HS [facility] Last Admin: 09/02/16 21:23 Dose: 20 mg Collagenase (Santyl -) 1 applic TP DAILY [facility] Last Admin: 09/03/16 11:18 Dose: Not Given Docusate Sodium (Colace -) 100 mg PO BID [facility] Last Admin: 09/03/16 09:45 Dose: Not Given Gabapentin (Neurontin -) 300 mg PO TID [facility] Last Admin: 09/03/16 05:33 Dose: Not Given Hydromorphone HCl (Dilaudid Injection -) 2 mg IVPB Q4H PRN PRN Reason: PAIN Last Admin: 09/03/16 08:29 Dose: 2 mg Insulin Aspart (Novolog Vial Sliding Scale -) 1 vial SQ ACHS [facility] PRN Reason: Protocol Last Admin: 09/03/16 11:23 Dose: Not Given Lorazepam (Ativan -) 0.5 mg PO BID PRN PRN Reason: ANXIETY Metoprolol Succinate (Toprol Xl -) 50 mg PO DAILY [facility] Last Admin: 09/03/16 09:45 Dose: Not Given Nicotine (Nicoderm Patch -) 14 mg TD DAILY [facility] Last Admin: 09/03/16 11:17 Dose: Not Given Pancrelipase (Creon Dr 6,000 Units Capsule) 2 cap PO TIDCM [facility] Last Admin: 09/03/16 08:00 Dose: Not Given Ranitidine HCl (Zantac -) 150 mg PO DAILY [facility] Last Admin: 09/03/16 09:45 Dose: Not Given - Objective Vital Signs: Vital Signs Temperature 98.6 F 09/03/16 08:56 Pulse Rate 92 H 09/03/16 08:56 Respiratory Rate 18 09/03/16 09:00 Blood Pressure 156/96 09/03/16 08:56 O2 Sat by Pulse Oximetry (%) 94 L 09/03/16 09:00 Constitutional: Yes: Mild Distress Eyes: Yes: WNL HENT: Yes: WNL Neck: Yes: WNL Cardiovascular: Yes: WNL Respiratory: Yes: WNL Gastrointestinal: Yes: WNL Genitourinary: Yes: WNL Musculoskeletal: Yes: Muscle Pain Extremities: Yes: Other Edema: No Peripheral Pulses WNL: Yes Integumentary: Yes: Pressure Ulcer, Other Wound/Incision: Yes: Dressing Dry and Intact Neurological: Yes: Pre-Existing Deficit, Unsteady Gait ...Motor Strength: LLE, RLE Psychiatric: Yes: Other Labs: CBC, BMP 09/03/16 06:25 09/02/16 08:00 INR, PTT INR 1.25 (0.82-1.09) H 08/28/16 05:20 Fibrinogen 556.0 mg/dL (238-498) H 08/28/16 05:20 Problem List - Problems (1) Ischemic foot Code(s): I99.8 - OTHER DISORDER OF CIRCULATORY SYSTEM (2) Abdominal pain Code(s): R10.9 - UNSPECIFIED ABDOMINAL PAIN Qualifiers: Abdominal location: unspecified location Qualified Code(s): R10.9 - Unspecified abdominal pain (3) Tobacco dependence Code(s): F17.200 - NICOTINE DEPENDENCE, UNSPECIFIED, UNCOMPLICATED (4) 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
[2016-09-03] MEDS ORDERED: MIDAZOLAM HCL 2 MG/2 ML SINGLE DOSE VIAL ONE ×3 (13:38→15:16)
[2016-09-03] MEDS ORDERED: PROPOFOL 20 ML ONE (13:38)
[2016-09-03] MEDS ORDERED: ceFAZolin SODIUM 1 GM VIAL IVPB ONE (13:59)
[2016-09-03] MEDS ORDERED: METOPROLOL TARTRATE 5 MG/5 ML VIAL ONE (15:25)
[2016-09-03] MEDS ORDERED: oxyCODONE HCL 5 MG TABLET PO PRN (15:38)
--- NOTE | 2016-09-03 15:40 | OP ---
Operative Note - Note: Operative Date: 09/03/16 Pre-Operative Diagnosis: right foot gangrene Operation: right below knee amputation Post-Operative Diagnosis: Same as Pre-op Surgeon: Jose Manzo Anesthesia: Spinal Specimens Removed: right leg Estimated Blood Loss (mls): 200 Operative Report Dictated: Yes
[2016-09-03] MEDS ORDERED: HYDROmorphone *PCA* 10MG/50ML DISP.SYRIN PCA SCH ×3 (15:45→23:15)
[2016-09-03] MEDS ORDERED: HYDROmorphone *PCA* 10MG/50ML DISP.SYRIN PCA ONE (16:13)
--- NOTE | 2016-09-03 17:04 | OP ---
DATE OF OPERATION: 09/03/2016 PREOPERATIVE DIAGNOSIS: Right foot gangrene. POSTOPERATIVE DIAGNOSIS: Right foot gangrene. PROCEDURE: Right below-knee amputation. SURGEON: Demetrius Sevilla MD ANESTHESIA: Spinal. BLOOD LOSS: 200 mL. INDICATIONS: Laura Harry is a 48-year-old female who came in with right foot gangrene. She had multiple angioplasties done with TPA infusion. 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 At this point, it was decided that she would need a below-knee amputation. Patient was consented for the procedure understanding all risks, benefits, and alternatives and was then brought into the operating room. PROCEDURE IN DETAIL: Anesthesia was then performed with spinal anesthesia on the patient. We went ahead and prepped and draped the right lower extremity in the sterile surgical manner. We then went 4 fingerbreadths below the tibial tuberosity and to a step-off incision using the skin marker. We then went ahead and used a No. 15 blade and cut along our incision all along our step-off incision for which cautery was used to control hemostasis, and we were able to take down all the subcutaneous tissue down to the tibia. We then were able to take down all the musculature using Bovie electrocautery. We then dissected down to the anterior tibial artery. Anterior tibial artery and vein were dissected anteriorly and posteriorly, then clamped and ligated. They were ligated with 0 silk ties. We then went ahead and went lateral and using Bovie electrocautery, we were able to take down more muscle and get down to the posterior tibial artery. Posterior tibial artery was dissected anteriorly and posteriorly along with the vein. Both the vein and artery were clamped and then cut and then tied off with 0 silk sutures. We then were able to dissect out our fibula. Fibula was dissected anteriorly and posteriorly. We were then able to take our incision posteriorly and take down the hamstring muscles using Bovie electrocautery and take down the Achilles muscle, as well, using Bovie electrocautery. At this point, we then went ahead and dissected between the fibula and the tibia, and we were able to get down using Bovie electrocautery to the peroneal artery. Peroneal artery and vein were dissected anteriorly and posteriorly, clamped, cut, and then tied off using 0 silk. At this point, we then went ahead and used our saw, and the tibia was transected, then the fibula was transected 2 cm above the tibia, and the leg was sent off to Pathology. Bovie electrocautery was used to control hemostasis, and the leg was then well irrigated copiously. We made sure that the fibular surface was nice and smooth. We then went ahead and used our saw and beveled the tibia. At this point, the flap approximated well. So, at this point, we used 2-0 Vicryl, and the fascia was closed, and we were able to close the fascia using 2-0 Vicryl in an interrupted manner. In this way, we were able to approximate our flap, and the flap came well together. Once we finished with the 2-0 Vicryl, we went ahead and used skin clary, and the skin was stapled together. Xeroform, 4x4s, ABD pads, Kerlix, and Coban were placed then, and the leg was placed in a knee immobilizer. The patient tolerated the procedure with no complications. Total blood loss was 200 mL. Patient transferred to PACU in stable condition. DEMETRIUS SEVILLA DO [id number]
[2016-09-03] MEDS: SODIUM CHLORIDE 1,000 ML IV SCH (18:23)
[2016-09-03] MEDS: oxyCODONE HCL 5 MG TABLET PO PRN (18:41)
[2016-09-03] MEDS ORDERED: INSULIN (NOVOLOG) ASPART 100 UNITS/ML 10ML VIAL ONE (21:20)
[2016-09-03] MEDS: ATORVASTATIN CA 20 MG TABLET (FP) PO SCH (21:21)
[2016-09-03] MEDS ORDERED: amLODIPine BESYLATE 5 MG TABLET (FP) PO ONE (22:00)
[2016-09-03] MEDS ORDERED: METOPROLOL SUCCINATE 50 MG TAB.SR.24H (FP) PO ONE (22:00)
[2016-09-04] MEDS ORDERED: amLODIPine BESYLATE 5 MG TABLET (FP) PO ONE (02:00)
[2016-09-04] MEDS: HYDROmorphone HCL CARPU-JECT 2 MG/1 ML DISP.SYRIN IVPB PRN ×2 (02:16→06:08)
[2016-09-04] MEDS ORDERED: INSULIN (NOVOLOG) ASPART 100 UNITS/ML 10ML VIAL ONE ×2 (06:06→17:25)
[2016-09-04] MEDS: INSULIN SLIDING SCALE (NOVOLOG) 1 VIAL SQ SCH ×4 (06:07→22:32)
[2016-09-04] MEDS: GABAPENTIN 300 MG CAPSULE (FP) PO SCH ×3 (06:08→23:12)
[2016-09-04] MEDS ORDERED: hydrALAZINE HCL 50 MG TABLET (FP) PO ONE (07:45)
[2016-09-04] MEDS ORDERED: METOPROLOL TARTRATE 50 MG TABLET (FP) PO ONE (07:45)
[2016-09-04] MEDS ORDERED: PT OWN MED DRAWER 7, Y5N ONE ×3 (08:35→17:26)
[2016-09-04] MEDS: LIPASE/PROTEASE/AMYLASE 6,000 UNIT CAPSULE PO SCH ×3 (08:39→17:38)
[2016-09-04] MEDS: NICOTINE 14 MG/24 HOURS TOPICAL PATCH TD SCH (10:03)
--- NOTE | 2016-09-04 10:04 | PN ---
Progress Note, Physician Chief Complaint: AWAKE ALERT +DISTRESS PAIN POST-OP DAY #1 RIGHT BKA - Current Medication List Current Medications: Active Medications Aclidinium [place] (Tudorza -) 1 puff IH BID [facility] Last Admin: 09/03/16 21:21 Dose: 1 inh Aspirin (Asa -) 81 mg PO DAILY [facility] Atorvastatin Calcium (Lipitor -) 20 mg PO HS [facility] Last Admin: 09/03/16 21:21 Dose: 20 mg Collagenase (Santyl -) 1 applic TP DAILY [facility] Docusate Sodium (Colace -) 100 mg PO BID [facility] Last Admin: 09/03/16 21:21 Dose: 100 mg Fentanyl (Sublimaze Injection -) 25 mcg IVPUSH [id number] PRN PRN Reason: PAIN Stop: 09/06/16 15:39 Gabapentin (Neurontin -) 300 mg PO TID [facility] Last Admin: 09/04/16 06:08 Dose: 300 mg Hydromorphone HCl (Dilaudid Injection -) 2 mg IVPB Q4H PRN PRN Reason: PAIN Last Admin: 09/04/16 06:08 Dose: 2 mg Hydromorphone HCl (Dilaudid Machine Set Up Operator -) 0 mg RN [facility] RN MENTAL HEALTH [facility] PRN Reason: Protocol Stop: 09/10/16 23:14 Sodium Chloride (Normal Saline -) 1,000 mls @ 42 mls/hr IV ASDIR [facility] Last Admin: 09/03/16 18:23 Dose: 42 mls/hr Insulin Aspart (Novolog Vial Sliding Scale -) 1 vial SQ ACHS [facility] PRN Reason: Protocol Last Admin: 09/04/16 06:07 Dose: 4 units Lorazepam (Ativan -) 0.5 mg PO BID PRN PRN Reason: ANXIETY Metoprolol Succinate (Toprol Xl -) 50 mg PO DAILY [facility] Nicotine (Nicoderm Patch -) 14 mg TD DAILY [facility] Oxycodone HCl (Roxicodone -) 5 mg PO Q4H PRN PRN Reason: MILD PAIN Stop: 09/04/16 15:37 Last Admin: 09/03/16 18:41 Dose: 5 mg Pancrelipase (Creon Dr 6,000 Units Capsule) 2 cap PO TIDCM [facility] Last Admin: 09/04/16 08:39 Dose: 2 cap Ranitidine HCl (Zantac -) 150 mg PO DAILY [facility] - Objective Vital Signs: Vital Signs Temperature 99.8 F H 09/04/16 05:58 Pulse Rate 100 H 09/04/16 05:58 Respiratory Rate 20 09/04/16 05:58 Blood Pressure 164/101 09/04/16 05:58 O2 Sat by Pulse Oximetry (%) 94 L 09/03/16 21:00 Constitutional: Yes: Mild Distress Eyes: Yes: WNL HENT: Yes: WNL Neck: Yes: WNL Cardiovascular: Yes: WNL Respiratory: Yes: WNL Gastrointestinal: Yes: WNL Genitourinary: Yes: WNL Musculoskeletal: Yes: Muscle Pain Extremities: Yes: Amputation Edema: No Peripheral Pulses WNL: No Integumentary: Yes: Other Wound/Incision: Yes: Dressing Dry and Intact Neurological: Yes: Other ...Motor Strength: RLE (BKA) Psychiatric: Yes: Agitated Labs: CBC, BMP 09/03/16 06:25 09/02/16 08:00 INR, PTT INR 1.25 (0.82-1.09) H 08/28/16 05:20 Fibrinogen 556.0 mg/dL (238-498) H 08/28/16 05:20 Problem List - Problems (1) Ischemic foot Code(s): I99.8 - OTHER DISORDER OF CIRCULATORY SYSTEM (2) Abdominal pain Code(s): R10.9 - UNSPECIFIED ABDOMINAL PAIN Qualifiers: Abdominal location: unspecified location Qualified Code(s): R10.9 - Unspecified abdominal pain (3) Tobacco dependence Code(s): F17.200 - NICOTINE DEPENDENCE, UNSPECIFIED, UNCOMPLICATED (4) 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 Code(s): E11.59 - TYPE 2 DIABETES MELLITUS WITH OTH CIRCULATORY COMPLICATIONS I70.209 - UNSP ATHSCL [place] ARTERIES OF EXTREMITIES, UNSP EXTREMITY (5) Hypertension Code(s): I10 - ESSENTIAL (PRIMARY) HYPERTENSION (6) H/O ETOH abuse Code(s): Z87.898 - PERSONAL HISTORY OF OTHER SPECIFIED CONDITIONS (7) S/P BKA (below knee amputation) unilateral Assessment/Plan: POST-OP DAY #1 Code(s): Z89.519 - ACQUIRED ABSENCE OF UNSPECIFIED LEG BELOW KNEE Qualifiers: Laterality: right Qualified Code(s): Z89.511 - Acquired absence of right leg below knee Assessment/Plan POD #1 WILL NEED SNF PAIN MEDICINE EVAL DR NARANJO AC DVT PROPHYLAXIS LABS PT EVAL HTN DUE TO PAIN WILL MONITOR
[2016-09-04] MEDS: ASPIRIN 81 MG CHEWABLE TABLETS PO SCH (10:05)
[2016-09-04] MEDS: METOPROLOL SUCCINATE 50 MG TAB.SR.24H (FP) PO SCH (10:05)
[2016-09-04] MEDS: DOCUSATE SODIUM 100 MG CAPSULE (FP) PO SCH ×2 (10:06→23:12)
[2016-09-04] MEDS: ACLIDINIUM BROMIDE 400 MCG/INH AERO.POWD IH SCH ×2 (10:06→23:13)
[2016-09-04] MEDS: RANITIDINE HCL 150 MG TABLET (FP) PO SCH (10:06)
[2016-09-04] MEDS: COLLAGENASE CLOSTRIDIUM HIST. 30 GRAMS TUBE TP SCH (10:07)
[2016-09-04] MEDS ORDERED: HYDROmorphone *PCA* 10MG/50ML DISP.SYRIN PCA ONE (10:13)
[2016-09-04] MEDS ORDERED: LOSARTAN 50MG/HCTZ 12.5MG 1 TAB (FP) PO SCH (10:15)
--- NOTE | 2016-09-04 10:35 | PN ---
Progress Note (short form) - Note Progress Note: Vascular surgery- Dr. Manzo Patient seen and examined. Patient is having a lot of pain. Last Vital Signs Temp Pulse Resp BP Pulse Ox 99.8 F H 98 H 20 156/96 94 L 09/04/16 05:58 09/04/16 10:30 09/04/16 10:30 09/04/16 10:30 09/03/16 21:00 CBC, BMP 09/03/16 06:25 09/02/16 08:00 Exam: Gen: Appears upset, uncomfortable LE: s/p right below knee amputation, dressing in place, dry, knee immobilizer in place Problem List - Problems (1) S/P BKA (below knee amputation) unilateral Assessment/Plan: POD#1 s/p right below knee amputation will take down dressing on POD#3, Saturday Pain control- on [employer], pain consult placed by primary team Code(s): Z89.519 - ACQUIRED ABSENCE OF UNSPECIFIED LEG BELOW KNEE Qualifiers: Laterality: right Qualified Code(s): Z89.511 - Acquired absence of right leg below knee
[2016-09-04] MEDS ORDERED: DEXAMETHASONE SOD PHOSPHATE 4 MG/1 ML VIAL IVPUSH PRN (12:23)
[2016-09-04] MEDS ORDERED: ONDANSETRON 4 MG/2 ML VIAL IVPUSH PRN (12:23)
[2016-09-04] MEDS ORDERED: PROMETHAZINE HCL 25 MG/1 ML VIAL IVPB PRN (12:23)
[2016-09-04] MEDS: LORazepam 0.5 MG TABLET PO PRN (12:28)
[2016-09-04] MEDS: oxyCODONE HCL 5 MG TABLET PO PRN (12:29)
--- NOTE | 2016-09-04 12:35 | PN ---
Progress Note (short form) - Note Progress Note: Anesthesia postop note 51 y/o s/p spinal anesthesia for BKA, dilaudid spray pilot POD#1, vss, aaox3, pain control not optimal. Patient instructed again how to use spray pilot, settings rewritten. Will continue spray pilot and reassess later if necessary. No anesthesia complications.
[2016-09-04] MEDS: HYDROCHLOROTHIAZIDE 12.5 MG CAPSULE (FP) PO SCH (15:48)
[2016-09-04] MEDS: LOSARTAN POTASSIUM 50 MG TABLET (FP) PO SCH (15:48)
[2016-09-04] MEDS: HYDROmorphone *PCA* 10MG/50ML DISP.SYRIN PCA SCH (16:54)
[2016-09-04] MEDS: ATORVASTATIN CA 20 MG TABLET (FP) PO SCH (23:12)
[2016-09-05] MEDS ORDERED: HYDROmorphone *PCA* 10MG/50ML DISP.SYRIN PCA ONE (05:36)
[2016-09-05] MEDS: HYDROmorphone *PCA* 10MG/50ML DISP.SYRIN PCA SCH (05:42)
[2016-09-05] MEDS ORDERED: INSULIN (NOVOLOG) ASPART 100 UNITS/ML 10ML VIAL ONE ×3 (06:01→22:32)
[2016-09-05] MEDS: GABAPENTIN 300 MG CAPSULE (FP) PO SCH ×3 (06:03→22:35)
[2016-09-05] MEDS: INSULIN SLIDING SCALE (NOVOLOG) 1 VIAL SQ SCH ×4 (06:03→22:38)
[2016-09-05 08:33] LABS: MCH 29.3 pg (25.7-33.7); MCHC 33.2 g/dl (32.0-36.0); MEAN CELL VOLUME 88.3 fl (80-96); MEAN PLT VOLUME 7.5 fl (7.5-11.1); PLATELET COUNT 534 K/MM3 (134-434); WHITE BLOOD COUNT 12.7 K/mm3 (4.0-10.0)
[2016-09-05] MEDS ORDERED: PT OWN MED DRAWER 7, Y5N ONE ×2 (09:06→09:07)
[2016-09-05] MEDS: RANITIDINE HCL 150 MG TABLET (FP) PO SCH (09:13)
[2016-09-05] MEDS: LORazepam 0.5 MG TABLET PO PRN (09:13)
[2016-09-05] MEDS: ASPIRIN 81 MG CHEWABLE TABLETS PO SCH (09:13)
[2016-09-05] MEDS: DOCUSATE SODIUM 100 MG CAPSULE (FP) PO SCH ×2 (09:13→22:35)
[2016-09-05] MEDS: METOPROLOL SUCCINATE 50 MG TAB.SR.24H (FP) PO SCH (09:13)
[2016-09-05] MEDS: HYDROCHLOROTHIAZIDE 12.5 MG CAPSULE (FP) PO SCH (09:13)
[2016-09-05] MEDS: LOSARTAN POTASSIUM 50 MG TABLET (FP) PO SCH (09:13)
[2016-09-05] MEDS: ACLIDINIUM BROMIDE 400 MCG/INH AERO.POWD IH SCH ×2 (09:15→22:39)
[2016-09-05] MEDS: ZINC SULFATE 220 MG CAPSULE (FP) PO SCH (09:15)
[2016-09-05] MEDS: NICOTINE 14 MG/24 HOURS TOPICAL PATCH TD SCH (09:15)
[2016-09-05] MEDS: COLLAGENASE CLOSTRIDIUM HIST. 30 GRAMS TUBE TP SCH (09:15)
[2016-09-05] MEDS: LIPASE/PROTEASE/AMYLASE 6,000 UNIT CAPSULE PO SCH ×3 (09:15→17:21)
[2016-09-05] MEDS: MULTIVITAMINS (DAILY MVI) TABLET (FP) PO SCH (09:15)
[2016-09-05] MEDS: ASCORBIC ACID 250 MG TABLET (FP) PO SCH (09:16)
[2016-09-05 09:31] LABS: ALK PHOS 267 U/L (45-117); ANION GAP 6 (8-16); BILIRUBIN,TOTAL 0.2 mg/dL (0.2-1.0); CALCIUM 8.3 mg/dL (8.5-10.1); CO2 28 mmol/L (21-32); CREATININE 0.7 mg/dL (0.55-1.02); GLUCOSE,RANDOM 137 mg/dL (74-106); SGOT/AST 14 U/L (15-37); SGPT/ALT 7 U/L (12-78); TOT PROT 4.5 g/dl (6.4-8.2)
--- NOTE | 2016-09-05 11:44 | PN ---
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 - Current Medication List Current Medications: Active Medications Aclidinium [place] (Tudorza -) 1 puff IH BID [facility] Last Admin: 09/05/16 09:15 Dose: 1 inh Ascorbic Acid (Vitamin C -) 250 mg PO DAILY [facility] Last Admin: 09/05/16 09:16 Dose: 250 mg Aspirin (Asa -) 81 mg PO DAILY [facility] Last Admin: 09/05/16 09:13 Dose: 81 mg Atorvastatin Calcium (Lipitor -) 20 mg PO HS [facility] Last Admin: 09/04/16 23:12 Dose: 20 mg Collagenase (Santyl -) 1 applic TP DAILY [facility] Last Admin: 09/05/16 09:15 Dose: Not Given Dexamethasone Sodium Phosphate (Decadron Injection -) 4 mg IVPUSH ONCE PRN PRN Reason: NAUSEA AND/OR VOMITING Diphenhydramine HCl (Benadryl Injection -) 12.5 mg IVPUSH ONCE PRN PRN Reason: FOR ITCHING Docusate Sodium (Colace -) 100 mg PO BID [facility] Last Admin: 09/05/16 09:13 Dose: 100 mg Fentanyl (Sublimaze Injection -) 25 mcg IVPUSH [id number] PRN PRN Reason: PAIN Stop: 09/06/16 15:39 Gabapentin (Neurontin -) 300 mg PO TID [facility] Last Admin: 09/05/16 06:03 Dose: 300 mg Hydrochlorothiazide (Hctz -) 12.5 mg PO DAILY [facility] Last Admin: 09/05/16 09:13 Dose: 12.5 mg Hydromorphone HCl (Dilaudid Accident Examiner -) 0 mg CORE STACKER CORE STACKER [facility] PRN Reason: Protocol Stop: 09/11/16 12:24 Last Admin: 09/05/16 05:42 Dose: 0.2 mg Sodium Chloride (Normal Saline -) 1,000 mls @ 42 mls/hr IV ASDIR [facility] Last Admin: 09/03/16 18:23 Dose: 42 mls/hr Insulin Aspart (Novolog Vial Sliding Scale -) 1 vial SQ ACHS [facility] PRN Reason: Protocol Last Admin: 09/05/16 06:03 Dose: 2 units Lorazepam (Ativan -) 0.5 mg PO BID PRN PRN Reason: ANXIETY Last Admin: 09/05/16 09:13 Dose: 0.5 mg Losartan Potassium (Cozaar -) 50 mg PO DAILY [facility] Last Admin: 09/05/16 09:13 Dose: 50 mg Metoprolol Succinate (Toprol Xl -) 50 mg PO DAILY [facility] Last Admin: 09/05/16 09:13 Dose: 50 mg Multivitamins/Minerals/Vitamin C (Tab-A-Vit -) 1 tab PO DAILY [facility] Last Admin: 09/05/16 09:15 Dose: 1 tab Nicotine (Nicoderm Patch -) 14 mg TD DAILY [facility] Last Admin: 09/05/16 09:15 Dose: 14 mg Pancrelipase (Creon Dr 6,000 Units Capsule) 2 cap PO TIDCM [facility] Last Admin: 09/05/16 09:15 Dose: 2 cap Promethazine HCl (Phenergan Injection -) 12.5 mg IVPB Q6H PRN PRN Reason: NAUSEA AND/OR VOMITING Ranitidine HCl (Zantac -) 150 mg PO DAILY [facility] Last Admin: 09/05/16 09:13 Dose: 150 mg Zinc Sulfate (Orazinc -) 220 mg PO DAILY [facility] Last Admin: 09/05/16 09:15 Dose: 220 mg - Objective Vital Signs: Vital Signs Temperature 98.6 F 09/05/16 06:00 Pulse Rate 85 09/05/16 06:00 Respiratory Rate 20 09/05/16 06:00 Blood Pressure 154/88 09/05/16 06:00 O2 Sat by Pulse Oximetry (%) 94 L 09/04/16 22:00 Constitutional: Yes: No Distress Eyes: Yes: WNL HENT: Yes: WNL Neck: Yes: WNL Cardiovascular: Yes: WNL Respiratory: Yes: WNL Gastrointestinal: Yes: WNL Genitourinary: Yes: WNL Musculoskeletal: Yes: Muscle Pain, Muscle Weakness Extremities: Yes: Amputation Edema: No Integumentary: Yes: Other Wound/Incision: Yes: Dressing Dry and Intact Neurological: Yes: Unsteady Gait ...Motor Strength: RLE Psychiatric: Yes: WNL Labs: CBC, BMP 09/05/16 07:00 09/05/16 07:00 INR, PTT INR 1.25 (0.82-1.09) H 08/28/16 05:20 Fibrinogen 556.0 mg/dL (238-498) H 08/28/16 05:20 Problem List - Problems (1) Ischemic foot Code(s): I99.8 - OTHER DISORDER OF CIRCULATORY SYSTEM (2) Abdominal pain Code(s): R10.9 - UNSPECIFIED ABDOMINAL PAIN Qualifiers: Abdominal location: unspecified location Qualified Code(s): R10.9 - Unspecified abdominal pain (3) Tobacco dependence Code(s): F17.200 - NICOTINE DEPENDENCE, UNSPECIFIED, UNCOMPLICATED (4) 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 Code(s): E11.59 - TYPE 2 DIABETES MELLITUS WITH OTH CIRCULATORY COMPLICATIONS I70.209 - UNSP ATHSCL [place] ARTERIES OF EXTREMITIES, UNSP EXTREMITY (5) Hypertension Code(s): I10 - ESSENTIAL (PRIMARY) HYPERTENSION (6) H/O ETOH abuse Code(s): Z87.898 - PERSONAL HISTORY OF OTHER SPECIFIED CONDITIONS (7) S/P BKA (below knee amputation) unilateral Code(s): Z89.519 - ACQUIRED ABSENCE OF UNSPECIFIED LEG BELOW KNEE Qualifiers: Laterality: right Qualified Code(s): Z89.511 - Acquired absence of right leg below knee Assessment/Plan POD #2 WILL NEED SNF PAIN MEDICINE EVAL DR NARANJO AC DVT PROPHYLAXIS LABS PT EVAL HTN DUE TO PAIN WILL MONITOR
--- NOTE | 2016-09-05 12:05 | PN ---
Progress Note (short form) - Note Progress Note: POD #1 - s/p right BKA under spinal with dilaudid BOY'S ADVISER for post-op pain management. Pt. appears somnolent with the addition of ativan which was given this morning. Pt. is arousabl with stable VS. Will continue BOY'S ADVISER for now at current settings.
[2016-09-05] MEDS: SODIUM CHLORIDE 1,000 ML IV SCH (14:56)
--- NOTE | 2016-09-05 15:15 | PATH ---
Surgical Pathology Report Patient Name: YEIMY CARUSO [facility]. Rec. #: [id number] /Age/Gender: 1965 (Age: 51) / F Account: [id number] Location: [address] [place] [address]/[facility] Taken: 09/03/2016 Received: 09/04/2016 Reported: 09/05/2016 Physicians: Jose Manzo Specimen(s) Received RIGHT FOOT AND PART OF CALF Clinical History Ischemia of foot, cellulitis and abscess of foot, [facility]/09/04/2016 Final Diagnosis RIGHT LEG, BELOW KNEE AMPUTATION: SEVERE CALCIFIC ATHEROSCLEROSIS WITH GANGRENOUS NECROSIS OF SKIN AND SOFT TISSUE OF FOOT. OSTEONECROSIS OF BONE IS PRESENT, BUT NO DEFINITE OSTEOMYELITIS IS IDENTIFIED. SKIN AND SOFT TISSUE MARGIN APPEARS VIABLE. BONE MARROW AT MARGIN IS UNREMARKABLE. Electronically Signed Herbert Hartley M.D. Gross Description Received fresh labeled "right foot and partial calf" is a below knee right amputation specimen with a 24 cm long x 7 x 7.5 cm foot attached to a 24 cm long by up to 18 cm in circumference portion of right lower leg. The fifth toe has been previously amputated. A 10 x 4 cm area of eschar and ulceration including the fourth toe and the lateral aspect of the third toe is present on the dorsum of the foot. Examination of the soft tissues of the foot reveal extensive areas of necrosis. Examination of the underlying bone reveals it to be mostly firm with focal softened areas. Examination of the medial and anterior neurovascular bundles reveals areas of calcific atherosclerosis. Field Clerk sections are submitted as follows: 1-skin and soft tissue margin; 2-bone marrow margin; 3-skin and soft tissue from foot; 4-bone from fourth toe for decalcification; 5-medial neurovascular bundle for decalcification; 6-anterior neurovascular bundle for decalcification. [facility]/09/04/2016 [facility]/09/04/2016
--- NOTE | 2016-09-05 16:29 | PN ---
Progress Note (short form) - Note Progress Note: Vascular surgery-Dr. Manzo Patient seen and examined this morning. Complaining of pain. Last Vital Signs Temp Pulse Resp BP Pulse Ox 98.6 F 85 20 154/88 94 L 09/05/16 06:00 09/05/16 06:00 09/05/16 06:00 09/05/16 06:00 09/04/16 22:00 CBC, BMP 09/05/16 07:00 09/05/16 07:00 Exam: Gen: NAD, uncomfortable LLE: Dressing clean, dry intact, knee immobilizer in place Problem List - Problems (1) S/P BKA (below knee amputation) unilateral Assessment/Plan: POD#2 s/p right below knee amputation dressing will be taken down on POD#3, tomorrow Pain control- on DIE TURNER per anesthesia pain consult per primary team pending Code(s): Z89.519 - ACQUIRED ABSENCE OF UNSPECIFIED LEG BELOW KNEE Qualifiers: Laterality: right Qualified Code(s): Z89.511 - Acquired absence of right leg below knee
--- NOTE | 2016-09-05 21:46 | CONSULT ---
Consult Consult Specialty:: pain medicine Referred by:: dr linton Reason for Consultation:: amputation pain - History of Present Illness Chief Complaint: leg pain History of Present Illness: 51 year old female with pmhx of DM, PVD, asthma and gallstones who presents to the ER complaining of right foot pain. She says that is has been progressive. She complains of discoloration of her right leg. [facility] went [facility] and was told that she needs an amputation. She is 3 days post leg amputation. 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 She reports the IV works but oral medications do not. Pain score 9/10 - Past Medical History Cardio/Vascular: Yes: HTN, Other (PAD) Pulmonary: Yes: Asthma Gastrointestinal: Yes: Pancreatitis Hepatobiliary: Yes: Other (ALCOHOLISM STOPPED ONE YEAR AGO) Renal/: Yes: Other (PYLEONEPHRITIS RECENTLY AT [facility]) ...: No Endocrine: Yes: Diabetes Mellitus - Past Surgical History Past Surgical History: Yes: Cholecystectomy - Alcohol/Substance Use Hx Alcohol Use: No ( ABOVE) - Smoking History Smoking history: Current every day smoker Have you smoked in the past 12 months: Yes Aproximately how many cigarettes per day: 6 Home Medications - Allergies Allergies/Adverse Reactions: Allergies Allergy/AdvReac Type Severity Reaction Status Date / Time No Known Allergies Allergy Verified 08/21/16 10:21 - Home Medications Home Medications: Ambulatory Orders Aspirin [ASA -] 81 mg PO DAILY 05/04/15 Diclofenac Sodium [Voltaren-Xr] 100 mg PO DAILY 05/04/15 Famotidine [Pepcid] 20 mg PO DAILY #30 05/04/15 Gabapentin [Neurontin -] 300 mg PO Q8H 05/04/15 Insulin (Levemir) [Levemir Vial] 60 unit SQ DAILY 05/04/15 Insulin Lispro Protamin/Lispro [Humalog Mix 75-25 Kwikpen] 30 unit SQ BID Metformin HCl [Glucophage] 1,000 mg PO BID 05/04/15 Oxycodone HCl/Acetaminophen [Percocet 10-325 mg Tablet] 1 tab PO Q6H PRN Atorvastatin Calcium 20 mg PO HS 08/21/16 Cefdinir [Omnicef -] 300 mg PO DAILY 08/21/16 Metoprolol Tartrate 50 mg PO DAILY 08/21/16 Metronidazole [Flagyl -] 500 mg PO DAILY 08/21/16 Oxycodone HCl/Acetaminophen [Endocet 5-325 Tablet] 1 each PO DAILY 08/21/16 Tiotropium [place] [Spiriva] 1 inh PO DAILY 08/21/16 Physical Exam Vital Signs: Vital Signs Temperature 99.4 F 09/05/16 17:52 Pulse Rate 95 H 09/05/16 17:52 Respiratory Rate 20 09/05/16 17:52 Blood Pressure 139/88 09/05/16 17:52 O2 Sat by Pulse Oximetry (%) 94 L 09/05/16 09:00 Constitutional: Yes: No Distress, Calm Labs: CBC, BMP 09/05/16 07:00 09/05/16 07:00 Assessment/Plan Status post leg amputation 1. Recommend to discontinue IV kosher butcher tomorrow. 2. start percocet 10/325 1 tab PO q6h prn pain 3. Recall prn
[2016-09-05] MEDS: ATORVASTATIN CA 20 MG TABLET (FP) PO SCH (22:35)
[2016-09-06] MEDS ORDERED: INSULIN (NOVOLOG) ASPART 100 UNITS/ML 10ML VIAL ONE ×4 (05:59→22:32)
[2016-09-06] MEDS: GABAPENTIN 300 MG CAPSULE (FP) PO SCH ×3 (06:02→22:26)
[2016-09-06] MEDS: INSULIN SLIDING SCALE (NOVOLOG) 1 VIAL SQ SCH ×4 (06:02→22:34)
[2016-09-06] MEDS ORDERED: HYDROmorphone *PCA* 10MG/50ML DISP.SYRIN PCA SCH (07:59)
[2016-09-06] MEDS ORDERED: PT OWN MED DRAWER 7, Y5N ONE ×6 (08:33→21:25)
[2016-09-06] MEDS: LIPASE/PROTEASE/AMYLASE 6,000 UNIT CAPSULE PO SCH ×3 (08:34→17:11)
[2016-09-06 08:56] LABS: MCH 29.3 pg (25.7-33.7); MCHC 32.8 g/dl (32.0-36.0); MEAN CELL VOLUME 89.3 fl (80-96); MEAN PLT VOLUME 7.4 fl (7.5-11.1); PLATELET COUNT 595 K/MM3 (134-434); RDW 14.3 % (11.6-15.6); WHITE BLOOD COUNT 10.8 K/mm3 (4.0-10.0)
--- NOTE | 2016-09-06 08:59 | PN ---
Progress Note (short form) - Note Progress Note: POD #3 Alert. Doing well. Pain controlled well via MACHINE TRACER. Wearing her knee immobilizer as instructed. AVSS. Afeb. General: nad RLE: clary intact. no erythema/drainage/hematoma. Flap viable. Problem List - Problems (1) S/P BKA (below knee amputation) unilateral Assessment/Plan: POD #3 Cont to wear your knee immobilizer MACHINE TRACER per anesthesia Dressing changed on rounds Physical therapy Code(s): Z89.519 - ACQUIRED ABSENCE OF UNSPECIFIED LEG BELOW KNEE Qualifiers: Laterality: right Qualified Code(s): Z89.511 - Acquired absence of right leg below knee
[2016-09-06 09:48] LABS: ALBUMIN 1.1 g/dl (3.4-5.0); ALK PHOS 262 U/L (45-117); ANION GAP 5 (8-16); BILIRUBIN,TOTAL 0.1 mg/dL (0.2-1.0); CALCIUM 8.4 mg/dL (8.5-10.1); CO2 29 mmol/L (21-32); CREATININE 0.8 mg/dL (0.55-1.02); GLUCOSE,RANDOM 126 mg/dL (74-106); SGOT/AST 20 U/L (15-37); SGPT/ALT 11 U/L (12-78)
--- NOTE | 2016-09-06 09:50 | PN ---
Progress Note (short form) - Note Progress Note: ANESTHESIOLOGY POST-OP CHECK 51F s/p right BKA under spinal anesthesia, POD #3. C/o 10/10 pain, eating breakfast. Denies, N/V. Seen by pain specialist yesterday. Vital Signs Temperature 97.5 F L 09/06/16 08:00 Pulse Rate 92 H 09/06/16 08:08 Respiratory Rate 20 09/06/16 08:08 Blood Pressure 130/81 09/06/16 08:00 O2 Sat by Pulse Oximetry (%) 94 L 09/05/16 22:00 Active Medications Acetaminophen (Tylenol -) 650 mg PO Q4H PRN PRN Reason: FEVER OR PAIN Aclidinium [place] (Tudorza -) 1 puff IH BID [facility] Last Admin: 09/05/16 22:39 Dose: 1 inh Ascorbic Acid (Vitamin C -) 250 mg PO DAILY [facility] Last Admin: 09/05/16 09:16 Dose: 250 mg Aspirin (Asa -) 81 mg PO DAILY [facility] Last Admin: 09/05/16 09:13 Dose: 81 mg Atorvastatin Calcium (Lipitor -) 20 mg PO HS [facility] Last Admin: 09/05/16 22:35 Dose: 20 mg Collagenase (Santyl -) 1 applic TP DAILY [facility] Last Admin: 09/05/16 09:15 Dose: Not Given Dexamethasone Sodium Phosphate (Decadron Injection -) 4 mg IVPUSH ONCE PRN PRN Reason: NAUSEA AND/OR VOMITING Diphenhydramine HCl (Benadryl Injection -) 12.5 mg IVPUSH ONCE PRN PRN Reason: FOR ITCHING Docusate Sodium (Colace -) 100 mg PO BID [facility] Last Admin: 09/05/16 22:35 Dose: 100 mg Fentanyl (Sublimaze Injection -) 25 mcg IVPUSH [id number] PRN PRN Reason: PAIN Stop: 09/06/16 15:39 Gabapentin (Neurontin -) 300 mg PO TID [facility] Last Admin: 09/06/16 06:02 Dose: 300 mg Hydrochlorothiazide (Hctz -) 12.5 mg PO DAILY [facility] Last Admin: 09/05/16 09:13 Dose: 12.5 mg Sodium Chloride (Normal Saline -) 1,000 mls @ 42 mls/hr IV ASDIR [facility] Last Admin: 09/05/16 14:56 Dose: 42 mls/hr Insulin Aspart (Novolog Vial Sliding Scale -) 1 vial SQ ACHS [facility] PRN Reason: Protocol Last Admin: 09/06/16 06:02 Dose: 4 units Lorazepam (Ativan -) 0.5 mg PO BID PRN PRN Reason: ANXIETY Last Admin: 09/05/16 09:13 Dose: 0.5 mg Losartan Potassium (Cozaar -) 50 mg PO DAILY [facility] Last Admin: 09/05/16 09:13 Dose: 50 mg Metoprolol Succinate (Toprol Xl -) 50 mg PO DAILY [facility] Last Admin: 09/05/16 09:13 Dose: 50 mg Multivitamins/Minerals/Vitamin C (Tab-A-Vit -) 1 tab PO DAILY [facility] Last Admin: 09/05/16 09:15 Dose: 1 tab Nicotine (Nicoderm Patch -) 14 mg TD DAILY [facility] Last Admin: 09/05/16 09:15 Dose: 14 mg Oxycodone HCl (Roxicodone -) 10 mg PO Q4H PRN PRN Reason: PAIN Pancrelipase (oTmmie Fonseca 6,000 Units Capsule) 2 cap PO TIDCM [facility] Last Admin: 09/06/16 08:34 Dose: 2 cap Promethazine HCl (Phenergan Injection -) 12.5 mg IVPB Q6H PRN PRN Reason: NAUSEA AND/OR VOMITING Ranitidine HCl (Zantac -) 150 mg PO DAILY [facility] Last Admin: 09/05/16 09:13 Dose: 150 mg Zinc Sulfate (Orazinc -) 220 mg PO DAILY [facility] Last Admin: 09/05/16 09:15 Dose: 220 mg Gen: Awake, alert Pain managment as per Dr. 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 Continue management as per primary team and pain as per Dr Mueller. Anesthesiology signing off.
[2016-09-06] MEDS: SODIUM CHLORIDE 1,000 ML IV SCH (09:57)
[2016-09-06] MEDS: DOCUSATE SODIUM 100 MG CAPSULE (FP) PO SCH ×2 (10:01→22:26)
[2016-09-06] MEDS: MULTIVITAMINS (DAILY MVI) TABLET (FP) PO SCH (10:01)
[2016-09-06] MEDS: HYDROCHLOROTHIAZIDE 12.5 MG CAPSULE (FP) PO SCH (10:01)
[2016-09-06] MEDS: LOSARTAN POTASSIUM 50 MG TABLET (FP) PO SCH (10:02)
[2016-09-06] MEDS: ASCORBIC ACID 250 MG TABLET (FP) PO SCH (10:02)
[2016-09-06] MEDS: RANITIDINE HCL 150 MG TABLET (FP) PO SCH (10:02)
[2016-09-06] MEDS: METOPROLOL SUCCINATE 50 MG TAB.SR.24H (FP) PO SCH (10:02)
[2016-09-06] MEDS: ASPIRIN 81 MG CHEWABLE TABLETS PO SCH (10:02)
[2016-09-06] MEDS: ZINC SULFATE 220 MG CAPSULE (FP) PO SCH (10:02)
[2016-09-06] MEDS: COLLAGENASE CLOSTRIDIUM HIST. 30 GRAMS TUBE TP SCH (10:02)
[2016-09-06] MEDS: ACLIDINIUM BROMIDE 400 MCG/INH AERO.POWD IH SCH ×2 (10:03→22:33)
[2016-09-06] MEDS: NICOTINE 14 MG/24 HOURS TOPICAL PATCH TD SCH (10:03)
[2016-09-06] MEDS: ACETAMINOPHEN 325 MG TABLET (FP) PO PRN ×3 (10:18→18:25)
[2016-09-06] MEDS: oxyCODONE HCL 5 MG TABLET PO PRN ×4 (10:19→22:25)
--- NOTE | 2016-09-06 12:55 | PN ---
Progress Note, Physician History of Present Illness: C/O PAIN PAIN CONSULT NOTED - Current Medication List Current Medications: Active Medications Acetaminophen (Tylenol -) 650 mg PO Q4H PRN PRN Reason: FEVER OR PAIN Last Admin: 09/06/16 10:18 Dose: 650 mg Aclidinium [place] (Tudorza -) 1 puff IH BID [facility] Last Admin: 09/06/16 10:03 Dose: 1 inh Ascorbic Acid (Vitamin C -) 250 mg PO DAILY [facility] Last Admin: 09/06/16 10:02 Dose: 250 mg Aspirin (Asa -) 81 mg PO DAILY [facility] Last Admin: 09/06/16 10:02 Dose: 81 mg Atorvastatin Calcium (Lipitor -) 20 mg PO HS [facility] Last Admin: 09/05/16 22:35 Dose: 20 mg Collagenase (Santyl -) 1 applic TP DAILY [facility] Last Admin: 09/06/16 10:02 Dose: Not Given Dexamethasone Sodium Phosphate (Decadron Injection -) 4 mg IVPUSH ONCE PRN PRN Reason: NAUSEA AND/OR VOMITING Diphenhydramine HCl (Benadryl Injection -) 12.5 mg IVPUSH ONCE PRN PRN Reason: FOR ITCHING Docusate Sodium (Colace -) 100 mg PO BID [facility] Last Admin: 09/06/16 10:01 Dose: 100 mg Fentanyl (Sublimaze Injection -) 25 mcg IVPUSH [id number] PRN PRN Reason: PAIN Stop: 09/06/16 15:39 Gabapentin (Neurontin -) 300 mg PO TID [facility] Last Admin: 09/06/16 06:02 Dose: 300 mg Hydrochlorothiazide (Hctz -) 12.5 mg PO DAILY [facility] Last Admin: 09/06/16 10:01 Dose: 12.5 mg Sodium Chloride (Normal Saline -) 1,000 mls @ 42 mls/hr IV ASDIR [facility] Last Admin: 09/06/16 09:57 Dose: 42 mls/hr Insulin Aspart (Novolog Vial Sliding Scale -) 1 vial SQ ACHS [facility] PRN Reason: Protocol Last Admin: 09/06/16 11:46 Dose: 4 units Lorazepam (Ativan -) 0.5 mg PO BID PRN PRN Reason: ANXIETY Last Admin: 09/05/16 09:13 Dose: 0.5 mg Losartan Potassium (Cozaar -) 50 mg PO DAILY [facility] Last Admin: 09/06/16 10:02 Dose: 50 mg Metoprolol Succinate (Toprol Xl -) 50 mg PO DAILY [facility] Last Admin: 09/06/16 10:02 Dose: 50 mg Multivitamins/Minerals/Vitamin C (Tab-A-Vit -) 1 tab PO DAILY [facility] Last Admin: 09/06/16 10:01 Dose: 1 tab Nicotine (Nicoderm Patch -) 14 mg TD DAILY [facility] Last Admin: 09/06/16 10:03 Dose: 14 mg Oxycodone HCl (Roxicodone -) 10 mg PO Q4H PRN PRN Reason: PAIN Last Admin: 09/06/16 10:19 Dose: 10 mg Pancrelipase (Creon Dr 6,000 Units Capsule) 2 cap PO TIDCM [facility] Last Admin: 09/06/16 08:34 Dose: 2 cap Promethazine HCl (Phenergan Injection -) 12.5 mg IVPB Q6H PRN PRN Reason: NAUSEA AND/OR VOMITING Ranitidine HCl (Zantac -) 150 mg PO DAILY [facility] Last Admin: 09/06/16 10:02 Dose: 150 mg Zinc Sulfate (Orazinc -) 220 mg PO DAILY [facility] Last Admin: 09/06/16 10:02 Dose: 220 mg - Objective Vital Signs: Vital Signs Temperature 97.5 F L 09/06/16 08:00 Pulse Rate 91 H 09/06/16 08:38 Respiratory Rate 18 09/06/16 08:38 Blood Pressure 130/81 09/06/16 08:38 O2 Sat by Pulse Oximetry (%) 94 L 09/05/16 22:00 Cardiovascular: Yes: S1, S2 Respiratory: Yes: Regular, CTA Bilaterally Gastrointestinal: Yes: Normal Bowel Sounds, Soft Extremities: Yes: Amputation Labs: CBC, BMP 09/06/16 08:25 09/06/16 08:25 INR, PTT INR 1.25 (0.82-1.09) H 08/28/16 05:20 Fibrinogen 556.0 mg/dL (238-498) H 08/28/16 05:20 Problem List - Problems (1) S/P BKA (below knee amputation) unilateral Assessment/Plan: PER SURGERY PAIN CONSULT NOTED Code(s): Z89.519 - ACQUIRED ABSENCE OF UNSPECIFIED LEG BELOW KNEE Qualifiers: Laterality: right Qualified Code(s): Z89.511 - Acquired absence of right leg below knee (2) Hypertension Assessment/Plan: STABLE SAME MEDS Code(s): I10 - ESSENTIAL (PRIMARY) HYPERTENSION (3) 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
[2016-09-06] MEDS ORDERED: sitaGLIPtin PHOSPHATE 50 MG TABLET PO ONE (13:00)
[2016-09-06] MEDS: oxyCODONE HCL 10 MG SUSTAINED ACTING TABLET PO SCH ×2 (17:10→22:24)
[2016-09-06] MEDS: ATORVASTATIN CA 20 MG TABLET (FP) PO SCH (22:24)
[2016-09-07] MEDS: ACETAMINOPHEN 325 MG TABLET (FP) PO PRN (04:21)
[2016-09-07] MEDS: oxyCODONE HCL 5 MG TABLET PO PRN ×4 (04:26→20:33)
[2016-09-07] MEDS ORDERED: PT OWN MED DRAWER 7, Y5N ONE ×5 (05:57→21:48)
[2016-09-07] MEDS: GABAPENTIN 300 MG CAPSULE (FP) PO SCH ×3 (06:29→21:38)
[2016-09-07] MEDS: INSULIN SLIDING SCALE (NOVOLOG) 1 VIAL SQ SCH ×4 (06:29→21:36)
[2016-09-07] MEDS: sitaGLIPtin PHOSPHATE 50 MG TABLET PO SCH (06:29)
[2016-09-07] MEDS ORDERED: INSULIN (NOVOLOG) ASPART 100 UNITS/ML 10ML VIAL ONE ×4 (06:42→21:22)
[2016-09-07 07:32] LABS: BASOPHIL 0.6 % (0-2.0); EOSINOPHIL 6.7 % (0-4.5); MCH 29.8 pg (25.7-33.7); MCHC 33.5 g/dl (32.0-36.0); MEAN CELL VOLUME 89.1 fl (80-96); MEAN PLT VOLUME 7.2 fl (7.5-11.1); NEUTROPHILS 66.2 % (42.8-82.8); PLATELET COUNT 531 K/MM3 (134-434); RDW 14.3 % (11.6-15.6); WHITE BLOOD COUNT 9.5 K/mm3 (4.0-10.0)
[2016-09-07 07:49] LABS: ANION GAP 6 (8-16); CALCIUM 7.9 mg/dL (8.5-10.1); CO2 26 mmol/L (21-32); GLUCOSE,RANDOM 219 mg/dL (74-106)
[2016-09-07 07:54] LABS: ALK PHOS 223 U/L (45-117); BILIRUBIN,TOTAL 0.1 mg/dL (0.2-1.0); CREATININE 0.9 mg/dL (0.55-1.02); SGOT/AST 15 U/L (15-37); SGPT/ALT 7 U/L (12-78); TOT PROT 4.3 g/dl (6.4-8.2)
[2016-09-07] MEDS: LIPASE/PROTEASE/AMYLASE 6,000 UNIT CAPSULE PO SCH ×3 (08:30→17:03)
--- NOTE | 2016-09-07 08:42 | PN ---
Addendum entered and electronically signed by Frank Howell PA 09/08/16 07:14: Repeat H/H after 2 PRBC Addendum entered and electronically signed by Frank Howell PA 09/07/16 09:49: Type and screen ordered for 7PM tonight Original Note: Progress Note (short form) - Note Progress Note: POD #4 Alert. Doing well. Her SODA DISPENSER was dc'd per Dr. Mueller (pain management) recommendations. Started on Percocet . Doing well. C/o pain but is now under control. Tolerating PO diet. Denies n/v/f/c, CP or SOB. Last Vital Signs Temp Pulse Resp BP Pulse Ox 98.2 F 90 20 158/80 95 09/07/16 05:20 09/07/16 05:20 09/07/16 05:20 09/07/16 05:20 09/06/16 21:00 CBC, BMP 09/07/16 06:15 09/07/16 06:15 PE General: alert. nad Pulm: cta b/l anteriorly Cor: rrr RLE: clary intact. no venous congestion to flap. no hematoma. no drainage. Problem List - Problems (1) S/P BKA (below knee amputation) unilateral Assessment/Plan: POD # 3 s/p RLE BKA. Anemia (H/H 7.3/) --> 2 units PRBC ordered Tight glycemic control --> sliding scale Dressing changes ordered RLE elevation while in bed Repeat H/H ordered for 2PM Above plan discussed with Dr. Manzo and agrees. Code(s): Z89.519 - ACQUIRED ABSENCE OF UNSPECIFIED LEG BELOW KNEE Qualifiers: Laterality: right Qualified Code(s): Z89.511 - Acquired absence of right leg below knee
--- NOTE | 2016-09-07 09:49 | PROC ---
Procedure Note Procedure: Patient has poor peripheral IV acess. Placed a 20ga angiocath into her left EJ. Aspirates easily and flushes without resistance. Secured in place with occlusive dressing. Ok to use line to administer PRBC. Ok to use for phlebotomy draws. Just have wet process technician draw off 5cc blood and waste specimen properly. After drawing specimen, re-flush line.
--- NOTE | 2016-09-07 10:12 | PN ---
Progress Note, Physician History of Present Illness: C/O PAIN PAIN CONSULT NOTED - Current Medication List Current Medications: Active Medications Acetaminophen (Tylenol -) 650 mg PO Q4H PRN PRN Reason: FEVER OR PAIN Last Admin: 09/07/16 04:21 Dose: 650 mg Aclidinium [place] (Tudorza -) 1 puff IH BID [facility] Last Admin: 09/06/16 22:33 Dose: 1 inh Ascorbic Acid (Vitamin C -) 250 mg PO DAILY [facility] Last Admin: 09/06/16 10:02 Dose: 250 mg Aspirin (Asa -) 81 mg PO DAILY [facility] Last Admin: 09/06/16 10:02 Dose: 81 mg Atorvastatin Calcium (Lipitor -) 20 mg PO HS [facility] Last Admin: 09/06/16 22:24 Dose: 20 mg Collagenase (Santyl -) 1 applic TP DAILY [facility] Last Admin: 09/06/16 10:02 Dose: Not Given Dexamethasone Sodium Phosphate (Decadron Injection -) 4 mg IVPUSH ONCE PRN PRN Reason: NAUSEA AND/OR VOMITING Diphenhydramine HCl (Benadryl Injection -) 12.5 mg IVPUSH ONCE PRN PRN Reason: FOR ITCHING Docusate Sodium (Colace -) 100 mg PO BID [facility] Last Admin: 09/06/16 22:26 Dose: 100 mg Gabapentin (Neurontin -) 300 mg PO TID [facility] Last Admin: 09/07/16 06:29 Dose: 300 mg Hydrochlorothiazide (Hctz -) 12.5 mg PO DAILY [facility] Last Admin: 09/06/16 10:01 Dose: 12.5 mg Insulin Aspart (Novolog Vial Sliding Scale -) 1 vial SQ ACHS [facility] PRN Reason: Protocol Last Admin: 09/07/16 06:29 Dose: 4 units Lorazepam (Ativan -) 0.5 mg PO BID PRN PRN Reason: ANXIETY Last Admin: 09/05/16 09:13 Dose: 0.5 mg Losartan Potassium (Cozaar -) 50 mg PO DAILY [facility] Last Admin: 09/06/16 10:02 Dose: 50 mg Metoprolol Succinate (Toprol Xl -) 50 mg PO DAILY [facility] Last Admin: 09/06/16 10:02 Dose: 50 mg Multivitamins/Minerals/Vitamin C (Tab-A-Vit -) 1 tab PO DAILY [facility] Last Admin: 09/06/16 10:01 Dose: 1 tab Nicotine (Nicoderm Patch -) 14 mg TD DAILY [facility] Last Admin: 09/06/16 10:03 Dose: 14 mg Oxycodone HCl (Roxicodone -) 10 mg PO Q4H PRN PRN Reason: PAIN Last Admin: 09/07/16 04:26 Dose: 10 mg Oxycodone HCl (Oxycontin -) 10 mg PO BID [facility] Last Admin: 09/06/16 22:24 Dose: 10 mg Pancrelipase (Creon Dr 6,000 Units Capsule) 2 cap PO TIDCM [facility] Last Admin: 09/06/16 17:11 Dose: 2 cap Promethazine HCl (Phenergan Injection -) 12.5 mg IVPB Q6H PRN PRN Reason: NAUSEA AND/OR VOMITING Ranitidine HCl (Zantac -) 150 mg PO DAILY [facility] Last Admin: 09/06/16 10:02 Dose: 150 mg Sitagliptin Phosphate (Januvia -) 50 mg PO DAILY@0700 [facility] Last Admin: 09/07/16 06:29 Dose: 50 mg Zinc Sulfate (Orazinc -) 220 mg PO DAILY [facility] Last Admin: 09/06/16 10:02 Dose: 220 mg - Objective Vital Signs: Vital Signs Temperature 98.2 F 09/07/16 05:20 Pulse Rate 90 09/07/16 05:20 Respiratory Rate 20 09/07/16 05:20 Blood Pressure 158/80 09/07/16 05:20 O2 Sat by Pulse Oximetry (%) 95 09/06/16 21:00 Cardiovascular: Yes: Regular Rate and Rhythm Respiratory: Yes: Regular, CTA Bilaterally Gastrointestinal: Yes: Normal Bowel Sounds, Soft Extremities: Yes: Amputation Labs: CBC, BMP 09/07/16 06:15 09/07/16 06:15 INR, PTT INR 1.25 (0.82-1.09) H 08/28/16 05:20 Fibrinogen 556.0 mg/dL (238-498) H 08/28/16 05:20 Problem List - Problems (1) S/P BKA (below knee amputation) unilateral Assessment/Plan: PER SURGERY PAIN CONSULT NOTED Code(s): Z89.519 - ACQUIRED ABSENCE OF UNSPECIFIED LEG BELOW KNEE Qualifiers: Laterality: right Qualified Code(s): Z89.511 - Acquired absence of right leg below knee (2) Hypertension Assessment/Plan: STABLE SAME MEDS Code(s): I10 - ESSENTIAL (PRIMARY) HYPERTENSION (3) 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
[2016-09-07] MEDS: oxyCODONE HCL 10 MG SUSTAINED ACTING TABLET PO SCH ×2 (10:27→21:39)
[2016-09-07] MEDS: HYDROCHLOROTHIAZIDE 12.5 MG CAPSULE (FP) PO SCH (10:28)
[2016-09-07] MEDS: RANITIDINE HCL 150 MG TABLET (FP) PO SCH (10:28)
[2016-09-07] MEDS: MULTIVITAMINS (DAILY MVI) TABLET (FP) PO SCH (10:28)
[2016-09-07] MEDS: ZINC SULFATE 220 MG CAPSULE (FP) PO SCH (10:28)
[2016-09-07] MEDS: LOSARTAN POTASSIUM 50 MG TABLET (FP) PO SCH (10:28)
[2016-09-07] MEDS: METOPROLOL SUCCINATE 50 MG TAB.SR.24H (FP) PO SCH (10:28)
[2016-09-07] MEDS: ASPIRIN 81 MG CHEWABLE TABLETS PO SCH (10:28)
[2016-09-07] MEDS: DOCUSATE SODIUM 100 MG CAPSULE (FP) PO SCH ×2 (10:28→21:38)
[2016-09-07] MEDS: COLLAGENASE CLOSTRIDIUM HIST. 30 GRAMS TUBE TP SCH (10:29)
[2016-09-07] MEDS: NICOTINE 14 MG/24 HOURS TOPICAL PATCH TD SCH (10:29)
[2016-09-07] MEDS: ACLIDINIUM BROMIDE 400 MCG/INH AERO.POWD IH SCH ×2 (10:29→21:39)
[2016-09-07] MEDS: ASCORBIC ACID 250 MG TABLET (FP) PO SCH (12:01)
[2016-09-07] MEDS: metFORMIN HCL 500 MG TABLET (FP) PO SCH (17:04)
[2016-09-07] MEDS: LORazepam 0.5 MG TABLET PO PRN (20:34)
[2016-09-07 21:34] LABS: BASOPHIL 1.1 % (0-2.0); EOSINOPHIL 5.7 % (0-4.5); MCHC 32.9 g/dl (32.0-36.0); MEAN CELL VOLUME 88.1 fl (80-96); MEAN PLT VOLUME 7.2 fl (7.5-11.1); NEUTROPHILS 70.4 % (42.8-82.8); PLATELET COUNT 593 K/MM3 (134-434); RDW 14.2 % (11.6-15.6); WHITE BLOOD COUNT 13.7 K/mm3 (4.0-10.0)
[2016-09-07] MEDS: ATORVASTATIN CA 20 MG TABLET (FP) PO SCH (21:38)
[2016-09-08] MEDS ORDERED: PT OWN MED DRAWER 7, Y5N ONE ×5 (06:33→17:21)
[2016-09-08] MEDS: metFORMIN HCL 500 MG TABLET (FP) PO SCH ×2 (06:40→16:52)
[2016-09-08] MEDS: GABAPENTIN 300 MG CAPSULE (FP) PO SCH ×3 (06:40→22:07)
[2016-09-08] MEDS: oxyCODONE HCL 5 MG TABLET PO PRN ×3 (06:41→21:00)
[2016-09-08] MEDS: sitaGLIPtin PHOSPHATE 50 MG TABLET PO SCH (06:41)
[2016-09-08] MEDS: INSULIN SLIDING SCALE (NOVOLOG) 1 VIAL SQ SCH ×4 (06:42→22:09)
[2016-09-08 07:21] LABS: BASOPHIL 0.7 % (0-2.0); MCH 29.8 pg (25.7-33.7); MCHC 33.7 g/dl (32.0-36.0); MEAN CELL VOLUME 88.4 fl (80-96); MEAN PLT VOLUME 7.3 fl (7.5-11.1); NEUTROPHILS 65.4 % (42.8-82.8); PLATELET COUNT 576 K/MM3 (134-434); RDW 14.3 % (11.6-15.6)
[2016-09-08 07:58] LABS: ALBUMIN 1.1 g/dl (3.4-5.0); ALK PHOS 240 U/L (45-117); ANION GAP 5 (8-16); BILIRUBIN,TOTAL 0.3 mg/dL (0.2-1.0); CALCIUM 8.3 mg/dL (8.5-10.1); CO2 29 mmol/L (21-32); CREATININE 0.8 mg/dL (0.55-1.02); GLUCOSE,RANDOM 176 mg/dL (74-106); SGOT/AST 14 U/L (15-37); SGPT/ALT 10 U/L (12-78); TOT PROT 4.7 g/dl (6.4-8.2)
--- NOTE | 2016-09-08 07:58 | PN ---
Progress Note (short form) - Note Progress Note: POD #5 Alert. Doing well. Her H/H was 01/11 yesterday morning. She received 2 PRBC. Denies n/v/f/c, CP, SOB, weak, dizzy, lightheadedness or bloody bms. Last Vital Signs Temp Pulse Resp BP Pulse Ox 98.2 F 89 18 144/85 99 09/08/16 06:00 09/08/16 06:00 09/08/16 06:00 09/08/16 06:00 09/07/16 21:00 H/H TREND 09/07/16 09/07/16 09/08/16 06:15 20:40 06:20 Hgb 7.8 L D 10.7 D 10.7 Hct 23.3 L 32.6 D 31.8 L PE General: alert. nad Pulm: cta b/l anteriorly Cor: rrr RLE: clary intact. no venous congestion to flap. no hematoma. no drainage. Problem List - Problems (1) S/P BKA (below knee amputation) unilateral Assessment/Plan: Physical therapy Knee immobilizer Dressing changes ordered f/u BMP Code(s): Z89.519 - ACQUIRED ABSENCE OF UNSPECIFIED LEG BELOW KNEE Qualifiers: Laterality: right Qualified Code(s): Z89.511 - Acquired absence of right leg below knee
[2016-09-08] MEDS: LIPASE/PROTEASE/AMYLASE 6,000 UNIT CAPSULE PO SCH ×3 (08:35→17:24)
--- NOTE | 2016-09-08 09:03 | PN ---
Progress Note, Physician Chief Complaint: EMOTIONAL - Current Medication List Current Medications: Active Medications Acetaminophen (Tylenol -) 650 mg PO Q4H PRN PRN Reason: FEVER OR PAIN Last Admin: 09/07/16 04:21 Dose: 650 mg Aclidinium [place] (Tudorza -) 1 puff IH BID [facility] Last Admin: 09/07/16 21:39 Dose: 1 inh Ascorbic Acid (Vitamin C -) 250 mg PO DAILY [facility] Last Admin: 09/07/16 12:01 Dose: 250 mg Aspirin (Asa -) 81 mg PO DAILY [facility] Last Admin: 09/07/16 10:28 Dose: 81 mg Atorvastatin Calcium (Lipitor -) 20 mg PO HS [facility] Last Admin: 09/07/16 21:38 Dose: 20 mg Collagenase (Santyl -) 1 applic TP DAILY [facility] Last Admin: 09/07/16 10:29 Dose: Not Given Dexamethasone Sodium Phosphate (Decadron Injection -) 4 mg IVPUSH ONCE PRN PRN Reason: NAUSEA AND/OR VOMITING Diphenhydramine HCl (Benadryl Injection -) 12.5 mg IVPUSH ONCE PRN PRN Reason: FOR ITCHING Docusate Sodium (Colace -) 100 mg PO BID [facility] Last Admin: 09/07/16 21:38 Dose: 100 mg Gabapentin (Neurontin -) 300 mg PO TID [facility] Last Admin: 09/08/16 06:40 Dose: 300 mg Hydrochlorothiazide (Hctz -) 12.5 mg PO DAILY [facility] Last Admin: 09/07/16 10:28 Dose: 12.5 mg Insulin Aspart (Novolog Vial Sliding Scale -) 1 vial SQ ACHS [facility] PRN Reason: Protocol Last Admin: 09/08/16 06:42 Dose: 2 units Losartan Potassium (Cozaar -) 50 mg PO DAILY [facility] Last Admin: 09/07/16 10:28 Dose: 50 mg Metformin HCl (Glucophage -) 500 mg PO BID@0700,1630 [facility] Last Admin: 09/08/16 06:40 Dose: 500 mg Metoprolol Succinate (Toprol Xl -) 50 mg PO DAILY [facility] Last Admin: 09/07/16 10:28 Dose: 50 mg Multivitamins/Minerals/Vitamin C (Tab-A-Vit -) 1 tab PO DAILY [facility] Last Admin: 09/07/16 10:28 Dose: 1 tab Nicotine (Nicoderm Patch -) 14 mg TD DAILY [facility] Last Admin: 09/07/16 10:29 Dose: 14 mg Oxycodone HCl (Roxicodone -) 10 mg PO Q4H PRN PRN Reason: PAIN Last Admin: 09/08/16 06:41 Dose: 10 mg Oxycodone HCl (Oxycontin -) 10 mg PO BID [facility] Last Admin: 09/07/16 21:39 Dose: 10 mg Pancrelipase (Creon Dr 6,000 Units Capsule) 2 cap PO TIDCM [facility] Last Admin: 09/08/16 08:35 Dose: 2 cap Promethazine HCl (Phenergan Injection -) 12.5 mg IVPB Q6H PRN PRN Reason: NAUSEA AND/OR VOMITING Ranitidine HCl (Zantac -) 150 mg PO DAILY [facility] Last Admin: 09/07/16 10:28 Dose: 150 mg Sitagliptin Phosphate (Januvia -) 50 mg PO DAILY@0700 [facility] Last Admin: 09/08/16 06:41 Dose: 50 mg Zinc Sulfate (Orazinc -) 220 mg PO DAILY [facility] Last Admin: 09/07/16 10:28 Dose: 220 mg - Objective Vital Signs: Vital Signs Temperature 98.2 F 09/08/16 06:00 Pulse Rate 89 09/08/16 06:00 Respiratory Rate 18 09/08/16 06:00 Blood Pressure 144/85 09/08/16 06:00 O2 Sat by Pulse Oximetry (%) 99 09/07/16 21:00 Cardiovascular: Yes: WNL Respiratory: Yes: WNL Gastrointestinal: Yes: WNL Edema: No Wound/Incision: Yes: Dressing Dry and Intact Labs: CBC, BMP 09/08/16 06:20 09/08/16 06:20 INR, PTT INR 1.25 (0.82-1.09) H 08/28/16 05:20 Fibrinogen 556.0 mg/dL (238-498) H 08/28/16 05:20 Problem List - Problems (1) Hypertension Code(s): I10 - ESSENTIAL (PRIMARY) HYPERTENSION (2) Ischemic foot Code(s): I99.8 - OTHER DISORDER OF CIRCULATORY SYSTEM (3) 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 Code(s): E11.59 - TYPE 2 DIABETES MELLITUS WITH OTH CIRCULATORY COMPLICATIONS I70.209 - UNSP ATHSCL [place] ARTERIES OF EXTREMITIES, UNSP EXTREMITY Assessment/Plan (1) S/P BKA (below knee amputation) unilateral Assessment/Plan: PER SURGERY PAIN CONSULT NOTED Code(s): Z89.519 - ACQUIRED ABSENCE OF UNSPECIFIED LEG BELOW KNEE Qualifiers: Laterality: right Qualified Code(s): Z89.511 - Acquired absence of right leg below knee (2) Hypertension Assessment/Plan: STABLE SAME MEDS Code(s): I10 - ESSENTIAL (PRIMARY) HYPERTENSION (3) 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
[2016-09-08] MEDS: HYDROCHLOROTHIAZIDE 12.5 MG CAPSULE (FP) PO SCH (09:40)
[2016-09-08] MEDS: oxyCODONE HCL 10 MG SUSTAINED ACTING TABLET PO SCH ×2 (09:40→22:07)
[2016-09-08] MEDS: ASCORBIC ACID 250 MG TABLET (FP) PO SCH (09:40)
[2016-09-08] MEDS: ZINC SULFATE 220 MG CAPSULE (FP) PO SCH (09:40)
[2016-09-08] MEDS: ASPIRIN 81 MG CHEWABLE TABLETS PO SCH (09:40)
[2016-09-08] MEDS: METOPROLOL SUCCINATE 50 MG TAB.SR.24H (FP) PO SCH (09:40)
[2016-09-08] MEDS: RANITIDINE HCL 150 MG TABLET (FP) PO SCH (09:40)
[2016-09-08] MEDS: LOSARTAN POTASSIUM 50 MG TABLET (FP) PO SCH (09:40)
[2016-09-08] MEDS: DOCUSATE SODIUM 100 MG CAPSULE (FP) PO SCH ×2 (09:40→22:07)
[2016-09-08] MEDS: MULTIVITAMINS (DAILY MVI) TABLET (FP) PO SCH (09:40)
[2016-09-08] MEDS: NICOTINE 14 MG/24 HOURS TOPICAL PATCH TD SCH (09:41)
[2016-09-08] MEDS: ACLIDINIUM BROMIDE 400 MCG/INH AERO.POWD IH SCH ×2 (09:42→23:08)
[2016-09-08] MEDS: COLLAGENASE CLOSTRIDIUM HIST. 30 GRAMS TUBE TP SCH (10:34)
[2016-09-08] MEDS: POLYETHYLENE GLYCOL 3350 119 GM BTL PO SCH (10:34)
[2016-09-08] MEDS ORDERED: INSULIN (NOVOLOG) ASPART 100 UNITS/ML 10ML VIAL ONE (11:35)
[2016-09-08] MEDS: ACETAMINOPHEN 325 MG TABLET (FP) PO PRN ×2 (16:06→21:01)
--- NOTE | 2016-09-08 19:39 | DS ---
Physical Examination Vital Signs: Vital Signs Temperature 97.9 F 09/08/16 15:10 Pulse Rate 87 09/08/16 15:10 Respiratory Rate 18 09/08/16 15:10 Blood Pressure 133/74 09/08/16 15:10 O2 Sat by Pulse Oximetry (%) 97 09/08/16 09:00 Findings/Remarks: EMOTIONAL Cardiovascular: Yes: WNL Respiratory: Yes: WNL Gastrointestinal: Yes: WNL Edema: No Wound/Incision: Yes: Dressing Dry and Intact Labs: CBC, BMP 09/08/16 06:20 09/08/16 06:20 Discharge Summary Reason For Visit: ISCHEMIA OF FOOT,CELLULITIS & ABSCESS OF FOOT Current Active Problems Anemia (Acute) Chronic pancreatitis (Acute) Gangrene associated with diabetes mellitus (Acute) H/O ETOH abuse (Acute) Hypertension (Acute) Ischemic foot (Acute) S/P BKA (below knee amputation) unilateral (Acute) Tobacco dependence (Acute) 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 (Acute) Hospital Course: (1) S/P BKA (below knee amputation) unilateral Assessment/Plan: PER SURGERY PAIN CONSULT NOTED FOR SNF FOR WOUND CARE Code(s): Z89.519 - ACQUIRED ABSENCE OF UNSPECIFIED LEG BELOW KNEE Qualifiers: Laterality: right Qualified Code(s): Z89.511 - Acquired absence of right leg below knee (2) Hypertension Assessment/Plan: STABLE SAME MEDS Code(s): I10 - ESSENTIAL (PRIMARY) HYPERTENSION (3) 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 Assessment/Plan: EDILSON MACKAY A1C 8 BGM ISS Code(s): E11.59 - TYPE 2 DIABETES MELLITUS WITH OTH CIRCULATORY COMPLICATIONS I70.209 - UNSP ATHSCL [place] ARTERIES OF EXTREMITIES, UNSP EXTREMITY (4) Anemia Assessment/Plan: S/P TRANSFUSE PRBC HGB STABLE NOW Code(s): D64.9 - ANEMIA, UNSPECIFIED DISCHARGE TO [facility] [employer] Condition: Stable - Instructions Referrals: Herbert Jo [Primary Care Provider] - - Home Medications Comprehensive Discharge Medication List: Ambulatory Orders Aspirin [ASA -] 81 mg PO DAILY 05/04/15 Diclofenac Sodium [Voltaren-Xr] 100 mg PO DAILY 05/04/15 Famotidine [Pepcid] 20 mg PO DAILY #30 05/04/15 Gabapentin [Neurontin -] 300 mg PO Q8H 05/04/15 Insulin (Levemir) [Levemir Vial] 60 unit SQ DAILY 05/04/15 Insulin Lispro Protamin/Lispro [Humalog Mix 75-25 Kwikpen] 30 unit SQ BID Metformin HCl [Glucophage] 1,000 mg PO BID 05/04/15 Oxycodone HCl/Acetaminophen [Percocet 10-325 mg Tablet] 1 tab PO Q6H PRN Atorvastatin Calcium 20 mg PO HS 08/21/16 Cefdinir [Omnicef -] 300 mg PO DAILY 08/21/16 Metoprolol Tartrate 50 mg PO DAILY 08/21/16 Metronidazole [Flagyl -] 500 mg PO DAILY 08/21/16 Oxycodone HCl/Acetaminophen [Endocet 5-325 Tablet] 1 each PO DAILY 08/21/16 Tiotropium [place] [Spiriva] 1 inh PO DAILY 08/21/16
[2016-09-08] MEDS: ATORVASTATIN CA 20 MG TABLET (FP) PO SCH (22:06)
[2016-09-09] MEDS: oxyCODONE HCL 5 MG TABLET PO PRN ×5 (01:11→21:25)
[2016-09-09] MEDS: ACETAMINOPHEN 325 MG TABLET (FP) PO PRN ×5 (01:11→21:26)
[2016-09-09] MEDS: sitaGLIPtin PHOSPHATE 50 MG TABLET PO SCH (06:27)
[2016-09-09] MEDS: GABAPENTIN 300 MG CAPSULE (FP) PO SCH ×3 (06:27→21:25)
[2016-09-09] MEDS: metFORMIN HCL 500 MG TABLET (FP) PO SCH ×2 (06:27→16:30)
[2016-09-09] MEDS: INSULIN SLIDING SCALE (NOVOLOG) 1 VIAL SQ SCH ×4 (06:28→21:28)
[2016-09-09] MEDS ORDERED: PT OWN MED DRAWER 7, Y5N ONE ×4 (07:57→17:21)
[2016-09-09 08:10] LABS: BASOPHIL 0.6 % (0-2.0); EOSINOPHIL 7.3 % (0-4.5); MCHC 33.5 g/dl (32.0-36.0); MEAN CELL VOLUME 89.5 fl (80-96); MEAN PLT VOLUME 7.1 fl (7.5-11.1); NEUTROPHILS 64.8 % (42.8-82.8); PLATELET COUNT 602 K/MM3 (134-434); RDW 14.3 % (11.6-15.6); WHITE BLOOD COUNT 9.5 K/mm3 (4.0-10.0)
[2016-09-09 08:44] LABS: ALBUMIN 1.3 g/dl (3.4-5.0); ALK PHOS 247 U/L (45-117); ANION GAP 6 (8-16); BILIRUBIN,TOTAL 0.2 mg/dL (0.2-1.0); CALCIUM 8.8 mg/dL (8.5-10.1); CO2 29 mmol/L (21-32); CREATININE 0.7 mg/dL (0.55-1.02); GLUCOSE,RANDOM 146 mg/dL (74-106); SGOT/AST 16 U/L (15-37); SGPT/ALT 11 U/L (12-78); TOT PROT 5.2 g/dl (6.4-8.2)
[2016-09-09] MEDS: NICOTINE 14 MG/24 HOURS TOPICAL PATCH TD SCH (09:30)
[2016-09-09] MEDS: MULTIVITAMINS (DAILY MVI) TABLET (FP) PO SCH (09:30)
[2016-09-09] MEDS: METOPROLOL SUCCINATE 50 MG TAB.SR.24H (FP) PO SCH (09:30)
[2016-09-09] MEDS: LOSARTAN POTASSIUM 50 MG TABLET (FP) PO SCH (09:30)
[2016-09-09] MEDS: RANITIDINE HCL 150 MG TABLET (FP) PO SCH (09:30)
[2016-09-09] MEDS: ZINC SULFATE 220 MG CAPSULE (FP) PO SCH (09:30)
[2016-09-09] MEDS: ASPIRIN 81 MG CHEWABLE TABLETS PO SCH (09:31)
[2016-09-09] MEDS: oxyCODONE HCL 10 MG SUSTAINED ACTING TABLET PO SCH ×2 (09:31→22:29)
[2016-09-09] MEDS: POLYETHYLENE GLYCOL 3350 119 GM BTL PO SCH (09:31)
[2016-09-09] MEDS: DOCUSATE SODIUM 100 MG CAPSULE (FP) PO SCH ×2 (09:31→21:25)
[2016-09-09] MEDS: HYDROCHLOROTHIAZIDE 12.5 MG CAPSULE (FP) PO SCH (09:31)
[2016-09-09] MEDS: ACLIDINIUM BROMIDE 400 MCG/INH AERO.POWD IH SCH ×2 (09:32→21:30)
[2016-09-09] MEDS: COLLAGENASE CLOSTRIDIUM HIST. 30 GRAMS TUBE TP SCH (09:32)
[2016-09-09] MEDS: ASCORBIC ACID 250 MG TABLET (FP) PO SCH (09:33)
[2016-09-09] MEDS: LIPASE/PROTEASE/AMYLASE 6,000 UNIT CAPSULE PO SCH ×3 (11:48→17:27)
--- NOTE | 2016-09-09 15:34 | PN ---
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
[2016-09-09] MEDS: ATORVASTATIN CA 20 MG TABLET (FP) PO SCH (21:25)
[2016-09-09] MEDS ORDERED: INSULIN (NOVOLOG) ASPART 100 UNITS/ML 10ML VIAL ONE (21:55)
[2016-09-10] MEDS: oxyCODONE HCL 5 MG TABLET PO PRN ×2 (05:03→09:37)
[2016-09-10] MEDS: ACETAMINOPHEN 325 MG TABLET (FP) PO PRN ×2 (05:05→09:38)
[2016-09-10] MEDS: metFORMIN HCL 500 MG TABLET (FP) PO SCH (06:03)
[2016-09-10] MEDS: GABAPENTIN 300 MG CAPSULE (FP) PO SCH (06:03)
[2016-09-10] MEDS: INSULIN SLIDING SCALE (NOVOLOG) 1 VIAL SQ SCH ×2 (06:05→11:41)
[2016-09-10] MEDS ORDERED: INSULIN (NOVOLOG) ASPART 100 UNITS/ML 10ML VIAL ONE ×2 (06:05→11:35)
[2016-09-10] MEDS: sitaGLIPtin PHOSPHATE 50 MG TABLET PO SCH (06:07)
[2016-09-10] MEDS ORDERED: PT OWN MED DRAWER 7, Y5N ONE ×2 (07:46→09:31)
[2016-09-10] MEDS: LIPASE/PROTEASE/AMYLASE 6,000 UNIT CAPSULE PO SCH ×2 (07:51→11:39)
[2016-09-10 07:54] VITALS: TEMP 98
[2016-09-10] MEDS: DOCUSATE SODIUM 100 MG CAPSULE (FP) PO SCH (09:35)
[2016-09-10] MEDS: HYDROCHLOROTHIAZIDE 12.5 MG CAPSULE (FP) PO SCH (09:35)
[2016-09-10] MEDS: ASPIRIN 81 MG CHEWABLE TABLETS PO SCH (09:35)
[2016-09-10] MEDS: ZINC SULFATE 220 MG CAPSULE (FP) PO SCH (09:35)
[2016-09-10] MEDS: MULTIVITAMINS (DAILY MVI) TABLET (FP) PO SCH (09:35)
[2016-09-10] MEDS: POLYETHYLENE GLYCOL 3350 119 GM BTL PO SCH (09:35)
[2016-09-10] MEDS: RANITIDINE HCL 150 MG TABLET (FP) PO SCH (09:35)
[2016-09-10] MEDS: LOSARTAN POTASSIUM 50 MG TABLET (FP) PO SCH (09:35)
[2016-09-10] MEDS: ACLIDINIUM BROMIDE 400 MCG/INH AERO.POWD IH SCH (09:35)
[2016-09-10] MEDS: METOPROLOL SUCCINATE 50 MG TAB.SR.24H (FP) PO SCH (09:35)
[2016-09-10] MEDS: oxyCODONE HCL 10 MG SUSTAINED ACTING TABLET PO SCH (09:36)
[2016-09-10] MEDS: ASCORBIC ACID 250 MG TABLET (FP) PO SCH (09:36)
[2016-09-10] MEDS: NICOTINE 14 MG/24 HOURS TOPICAL PATCH TD SCH (09:36)
[2016-09-10] MEDS: COLLAGENASE CLOSTRIDIUM HIST. 30 GRAMS TUBE TP SCH (09:39)
[2016-09-10 10:26] VITALS: BP 139/72
[2016-09-10 11:42] VITALS: PULSE 81
== END 2016-09-10 13:18 | DRG 173 ==
LOC: JER 10:15 → JERBED 16:27 → J7W 17:45 → JICU 08-26 14:51 → J6S 08-28 21:29
PROVIDERS: ADMIT Family Medicine; ATTEND Family Medicine
PROC: 3E05317 Introduction of Other Thrombolytic into Peripheral Artery, Percutaneous Approach (ICD-10-PCS; 2016-08-22)
PROC: 047R3ZZ Dilation of Right Posterior Tibial Artery, Percutaneous Approach (ICD-10-PCS; principal; 2016-08-22 14:30)
PROC: 047R3ZZ Dilation of Right Posterior Tibial Artery, Percutaneous Approach (ICD-10-PCS; 2016-08-26)
PROC: 3E05317 Introduction of Other Thrombolytic into Peripheral Artery, Percutaneous Approach (ICD-10-PCS; 2016-08-26)
PROC: 05HP33Z Insertion of Infusion Device into Right External Jugular Vein, Percutaneous Approach (ICD-10-PCS; 2016-09-01)
PROC: 0Y6F0ZZ Detachment at Right Knee Region, Open Approach (ICD-10-PCS; 2016-09-03)
PROC: 05HQ33Z Insertion of Infusion Device into Left External Jugular Vein, Percutaneous Approach (ICD-10-PCS; 2016-09-07)
PROC: 30233N1 Transfusion of Nonautologous Red Blood Cells into Peripheral Vein, Percutaneous Approach (ICD-10-PCS; 2016-09-07)
DX: E11.52 Type 2 diabetes mellitus with diabetic peripheral angiopathy with gangrene (principal); L98.499 Non-pressure chronic ulcer of skin of other sites with unspecified severity; E11.65 Type 2 diabetes mellitus with hyperglycemia; Z79.4 Long term (current) use of insulin; F17.200 Nicotine dependence, unspecified, uncomplicated; I99.8 Other disorder of circulatory system; J45.909 Unspecified asthma, uncomplicated; Z89.421 Acquired absence of other right toe(s); E86.0 Dehydration; K86.1 Other chronic pancreatitis; F10.21 Alcohol dependence, in remission; N17.9 Acute kidney failure, unspecified; R07.9 Chest pain, unspecified; I10 Essential (primary) hypertension; F41.9 Anxiety disorder, unspecified; D64.9 Anemia, unspecified
CPT/HCPCS: 36415; 36430; 71010-TC; 73630-TC-RT; 75635-TC; 76000-TC; 76001-TC; 80048; 80053; 80061; 81003; 81015; 82150; 82272; 82550; 82947; 82977; 83036; 83605; 83690; 83721; 83735; 83880; 84100; 84484; 85025; 85027; 85384; 85610; 85651; 85730; 86140; 86850; 86900; 86901; 86922; 87040; 88307-TC; 88311-TC; 93005; 93010; 93925-TC; 94010; 94760; 97116-GP; 97161-GP; 99282-25; G0480; J1644; P9038; P9058

== ENCOUNTER 2017-02-18 18:40 | Emergency (ER) | payer OTHER ==
[2017-02-18 19:04] VITALS: BP 162/86; PULSE 90; TEMP 98.4; BMI 29.9
[2017-02-18] MEDS ORDERED: SODIUM CHLORIDE 500 ML IV STA (19:57)
[2017-02-18] MEDS ORDERED: ONDANSETRON 4 MG/2 ML VIAL IVPUSH ONE (19:57)
[2017-02-18] MEDS ORDERED: morphine CARPU-JECT 4 MG/1 ML DISP.SYRIN IVPUSH ONE (19:57)
[2017-02-18] MEDS ORDERED: PANTOPRAZOLE SODIUM 40 MG in SODIUM CHLORIDE 100 ML IVPB ONE (19:57)
[2017-02-18] MEDS ORDERED: FAMOTIDINE 20 MG/50 ML IVPB 50 ML IVPB ONE (19:57)
--- NOTE | 2017-02-18 20:12 | PDOC ---
History of Present Illness - General Chief Complaint: Nausea/Vomiting Stated Complaint: Nausea/Vomiting Time Seen by Provider: 02/18/17 19:46 History Source: Patient Exam Limitations: No Limitations - History of Present Illness Travel History: No Initial Comments: 02/18/17 20:03 51yo Female patient w/ PmHx: Gallstones, Asthma, IDDM (non-compliant), BKA ( September/2016), Polysubstance Abuse presents to ED c/o nausea and vomiting. Patient state she was recently admitted to [facility] this past Thursday and discharge on Thursday. She provided paperwork with Dx: Gastritis. Associated Dizziness. Patient denies CP, Back Pain, Diff breathing, SOB, or any other complaints at this time. Timing/Duration: reports: intermittent Quality: reports: moderate, cramping Abdominal Pain Onset Location: reports: generalized abdomen Pain Radiation: reports: no radiation Activities at Onset: reports: no specific activity Treatment Prior to Arrive: worse with: analgesics, antacids, cold pack, heat, laxative, enema, other Aggravating Factors: worse with: None, Defecation, Eating, Emotional upset, Exertion, [place], Movement, Voiding, Change in position Alleviating Factors: worse with: None, Belching, Shallow Breathing, Defecation, Eating, Holding Breath, Passing Gas, Change in Position, Rest, Voiding, Vomiting Past History - Travel Traveled outside of the country in the last 30 days: No Close contact w/someone who was outside of country & ill: No - Past Medical History Allergies/Adverse Reactions: Allergies Allergy/AdvReac Type Severity Reaction Status Date / Time No Known Allergies Allergy Verified 02/18/17 18:54 Home Medications: Ambulatory Orders Aspirin [ASA -] 81 mg PO DAILY 05/04/15 Acetaminophen [Tylenol .Regular Strength -] 650 mg PO Q6H PRN #0 tablet Gabapentin [Neurontin -] 300 mg PO TID 09/08/16 Hydrochlorothiazide [Hctz -] 12.5 mg PO DAILY cap 09/08/16 Metoprolol Succinate [Toprol XL -] 50 mg PO DAILY 09/08/16 Multivitamins [Multivit ([facility] Formulary)] 1 tab PO DAILY tab 09/08/16 Cholecalciferol (Vitamin D3) [Vitamin D3] 2,000 unit PO DAILY 02/18/17 Famotidine [Pepcid] 20 mg PO BID 02/18/17 Insulin Glargine,Hum.rec.anlog [Basaglar Kwikpen U-100] 5 unit SQ DAILY Lipase/Protease/Amylase [Tommie Dr 6,000 Units Capsule] 1 cap PO TIDCM 02/18/17 Mirtazapine 30 mg PO DAILY 02/18/17 Simvastatin 20 mg PO HS 02/18/17 Sitagliptin Phosphate [Januvia] 50 mg PO DAILY 02/18/17 Tiotropium [place] [Spiriva] 2 inh IH DAILY 02/18/17 Nitrofurantoin Monohyd/M-Cryst [Macrobid -] 100 mg PO BID #14 capsule 02/19/17 Ondansetron [Zofran Odt -] 4 mg SL Q8H PRN #21 od.tablet 02/19/17 Oxycodone HCl/Acetaminophen [Percocet 5-325 mg Tablet] 1 tab PO Q6H PRN #12 tablet MDD 4 tab 02/19/17 Asthma: Yes Diabetes: Yes HTN: Yes Hypercholesterolemia: Yes - Psycho/Social/Smoking Cessation Hx Anxiety: No Suicidal Ideation: No Smoking Status: Yes Smoking History: Current every day smoker Have you smoked in the past 12 months: Yes Number of Cigarettes Smoked Daily: 10 Information on smoking cessation initiated: No Hx Alcohol Use: No ( ABOVE) Drug/Substance Use Hx: No Substance Use Type: Cocaine, Marijuana Abd/GI Specific PMHX - Complaint Specific PMHX Colitis: No Diverticulitis: No Gall Bladder Disease: No GERD: No Hepatitis: No Irritable Bowel Synd (IBS): No Pancreatitis: No GI Ulcer Disease: No Review of Systems - Review of Systems Able to Perform ROS?: Yes Is the patient limited Thai proficient: No Constitutional: No: Chills, Fever Respiratory: No: Shortness of Breath, Stridor, Wheezing Cardiac (ROS): No: Chest Pain, Chest Tightness ABD/GI: Yes: Diarrhea, Nausea, Poor Fluid Intake, Vomiting, Abdominal cramping. No: Constipated, Poor Appetite : No: Burning, Dysuria, Hematuria, Pain Musculoskeletal: No: Back Pain Neurological: Yes: Dizziness. No: Headache Psychiatric: No: Change in Appetite All Other Systems: Reviewed and Negative *Physical Exam - Vital Signs Last Vital Signs Temp Pulse Resp BP Pulse Ox 98.4 F 90 18 162/86 98 02/18/17 18:54 02/18/17 18:54 02/18/17 18:54 02/18/17 18:54 02/18/17 18:54 - Physical Exam General Appearance: Yes: Nourished, Appropriately Dressed, Thin. No: Apparent Distress, Mild Distress, Moderate Distress, Severe Distress Neck: positive: Trachea midline, Supple. negative: Lymphadenopathy (R), Lymphadenopathy (L) Respiratory/Chest: positive: Lungs Clear, Normal Breath Sounds. negative: Chest Tender, Respiratory Distress, Accessory Muscle Use, Labored Respiration, Rapid RR, Crackles, Rales, Wheezing Cardiovascular: positive: Regular Rhythm, Regular Rate Gastrointestinal/Abdominal: positive: Soft, Decreased BS. negative: Tender, Increased Bowel Sounds, Distended, Guarding, Rebound, Tenderness Musculoskeletal: positive: Normal Inspection. negative: CVA Tenderness Extremity: positive: Normal Capillary Refill, Normal Inspection, Normal Range of Motion. negative: Pedal Edema, Swelling, Calf Tenderness, Erythema, Inflammation Integumentary: positive: Normal Color, Dry, Warm Neurologic: positive: manager desktop II-XII NML intact, Fully Oriented, Alert, Normal Mood/ Affect, Normal Response, Motor Strength 10/24 ED Treatment Course - LABORATORY CBC & Chemistry Diagram: 02/18/17 22:10 02/18/17 22:10 *DC/Admit/Observation/Transfer Diagnosis at time of Disposition: Polysubstance dependence Gastritis Qualifiers: Gastritis type: unspecified gastritis Chronicity: acute Gastritis bleeding: without bleeding Qualified Code(s): K29.00 - Acute gastritis without bleeding UTI (urinary tract infection) Qualifiers: Urinary tract infection type: urethritis Qualified Code(s): N34.2 - Other urethritis - Discharge Dispostion Disposition: HOME Condition at time of disposition: Improved Admit: No - Prescriptions Prescriptions: Nitrofurantoin Monohyd/M-Cryst [Macrobid -] 100 mg PO BID #14 capsule Oxycodone HCl/Acetaminophen [Percocet 5-325 mg Tablet] 1 tab PO Q6H PRN #12 tablet MDD 4 tab PRN Reason: Severe Pain Ondansetron [Zofran Odt -] 4 mg SL Q8H PRN #21 od.tablet PRN Reason: Nausea - Patient Instructions Printed Discharge Instructions: DI for Gastritis, Urinary Tract Infection, DI for Prescription Opioid Use Additional Instructions: Follow up with your primary care provider this week for further evaluation. Take medications as prescribed. Do not drive, drink alcohol, or operate heavy machinery while taking Percocet. Drink plenty fluids and monitor blood sugar often. Return if any concerns for further evaluation. Print Language: JAPANESE
[2017-02-18] MEDS ORDERED: morphine CARPU-JECT 2 MG/1 ML DISP.SYRIN ONE (21:29)
[2017-02-18] MEDS: morphine CARPU-JECT 2 MG/1 ML DISP.SYRIN IM ONE (21:32)
[2017-02-18] MEDS ORDERED: ONDANSETRON *ODT* 4 MG TABLET ONE (22:03)
[2017-02-18 22:20] LABS: BASOPHIL 0.7 % (0-2.0); EOSINOPHIL 1.7 % (0-4.5); MCH 28.6 pg (25.7-33.7); MCHC 33.3 g/dl (32.0-36.0); MEAN CELL VOLUME 85.8 fl (80-96); MEAN PLT VOLUME 8.3 fl (7.5-11.1); NEUTROPHILS 71.1 % (42.8-82.8); PLATELET COUNT 319 K/MM3 (134-434); RDW 13.9 % (11.6-15.6); WHITE BLOOD COUNT 10.6 K/mm3 (4.0-10.0)
--- NOTE | 2017-02-18 22:41 | PDOC ---
*Physical Exam - Vital Signs Last Vital Signs Temp Pulse Resp BP Pulse Ox 98.4 F 90 18 162/86 98 02/18/17 18:54 02/18/17 18:54 02/18/17 18:54 02/18/17 18:54 02/18/17 18:54 - Physical Exam Comments: 02/18/17 22:41 The patient was examined by [TERESA Subramanian] under my direct supervision. I personally evaluated the patient. I concur with the above findings and the plan of care. ED Treatment Course - LABORATORY CBC & Chemistry Diagram: 02/18/17 22:10 02/18/17 22:10 - ADDITIONAL ORDERS Additional order review: 02/18/17 22:10 RBC 4.73 D MCV 85.8 MCHC 33.3 RDW 13.9 MPV 8.3 D Neutrophils % 71.1 Lymphocytes % 21.0 Monocytes % 5.5 Eosinophils % 1.7 Basophils % 0.7 - Medications Given in the ED: ED Medications Discontinued Medications Generic Name Dose Route Start Last Admin Trade Name Halina PRN Reason Stop Dose Admin Morphine Sulfate 4 mg 02/18/17 19:57 02/18/17 21:33 Morphine Injection - IVPUSH 02/18/17 19:58 Not Given ONCE ONE Morphine Sulfate 4 mg 02/18/17 21:32 02/18/17 21:32 Morphine Injection - IM 02/18/17 21:33 4 mg NOW ONE Administration
[2017-02-18 22:57] LABS: ALBUMIN 2.4 g/dl (3.4-5.0); AMYLASE 78 U/L (25-115); ANION GAP 8 (8-16); BILIRUBIN,TOTAL 0.4 mg/dL (0.2-1.0); CALCIUM 8.3 mg/dL (8.5-10.1); CO2 26 mmol/L (21-32); CREATININE 1.6 mg/dL (0.55-1.02); GLUCOSE,RANDOM 185 mg/dL (74-106); SGOT/AST 14 U/L (15-37); SGPT/ALT 17 U/L (12-78); TOT PROT 5.1 g/dl (6.4-8.2)
[2017-02-18 22:58] LABS: ALK PHOS 148 U/L (45-117)
[2017-02-19 00:40] LABS: URINE APPEARANCE SLCLOUDY; URINE BILIRUBIN NEGATIVE (NEGATIVE); URINE BLOOD 1+ (NEGATIVE); URINE COLOR YELLOW; URINE GLUCOSE (UA) 1+ (NEGATIVE); URINE KETONE NEGATIVE (NEGATIVE); URINE LEUK ESTERASE NEGATIVE (NEGATIVE); URINE NITRITE NEGATIVE (NEGATIVE); URINE UROBILINOGEN NEGATIVE mg/dL (0.2-1.0)
[2017-02-19 00:53] LABS: URINE PROTEIN 3+ (NEGATIVE)
[2017-02-19 00:55] LABS: GRANULAR CASTS 4 /lpf; URINE HYALINE CAST 28 /lpf; URINE MUCUS RARE; URINE RBC 7 /hpf (0-3); URINE WBC 6 /hpf (3-5)
[2017-02-19] MEDS ORDERED: POTASSIUM CHLORIDE TABS 20 MEQ TABLET.ER (FP) PO ONE ×2 (01:11→01:31)
[2017-02-19] MEDS ORDERED: NITROFURANTOIN MACROCRYSTAL 50 MG CAPSULE (FP) PO SCH (01:15)
[2017-02-19] MEDS ORDERED: NITROFURANTOIN MACROCRYSTAL 50 MG CAPSULE (FP) ONE (01:31)
[2017-02-19] MEDS: morphine CARPU-JECT 2 MG/1 ML DISP.SYRIN IM ONE (03:43)
[2017-02-19] MEDS ORDERED: morphine CARPU-JECT 2 MG/1 ML DISP.SYRIN IM ONE (03:43)
== END 2017-02-19 01:52 | disposition home or self-care (01) ==
LOC: JER 18:40
PROC: 3E023NZ Introduction of Analgesics, Hypnotics, Sedatives into Muscle, Percutaneous Approach (ICD-10-PCS; principal; 2017-02-18)
DX: K29.00 Acute gastritis without bleeding (principal); F11.10 Opioid abuse, uncomplicated; I10 Essential (primary) hypertension; E11.9 Type 2 diabetes mellitus without complications; Z79.4 Long term (current) use of insulin; Z79.84 Long term (current) use of oral hypoglycemic drugs; Z91.14 Patient's other noncompliance with medication regimen; E78.00 Pure hypercholesterolemia, unspecified; J45.909 Unspecified asthma, uncomplicated; K80.20 Calculus of gallbladder without cholecystitis without obstruction; Z89.519 Acquired absence of unspecified leg below knee; F17.210 Nicotine dependence, cigarettes, uncomplicated
CPT/HCPCS: 36415; 80053; 81003; 81015; 82150; 83690; 83735; 85025; 99281-25

== ENCOUNTER 2017-05-15 05:59 | Inpatient (IN) | payer OTHER ==
[2017-05-15 06:35] VITALS: BMI 15.3
[2017-05-15] MEDS ORDERED: METOCLOPRAMIDE HCL INJECTION 10 MG/2 ML VIAL ONE (07:54)
[2017-05-15] MEDS ORDERED: ONDANSETRON 4 MG/2 ML VIAL ONE (07:54)
--- NOTE | 2017-05-15 07:55 | PDOC ---
History of Present Illness - General Chief Complaint: Pain Stated Complaint: ABDOMINAL PAIN Time Seen by Provider: 05/15/17 07:22 History Source: Patient Exam Limitations: No Limitations - History of Present Illness Initial Comments: This is a 52 YOF with h/o gastritis, pancreatitis, IDDM (non adherent), and HTN (non adherent) who presents with 10/10 sharp fluctuating mid-abdominal pain radiating to the back since 10 pm last night (05/15). The onset was shortly after she ate Thanksgiving dinner and has been fluctuating (strong for 20 minutes then mild for 5 minutes) since then. She has had about 4 episodes of vomiting, and an episode of diarrhea which she states had blood, as well as fever and chills. She denies dysuria. She states that these symptoms feel the same as her prior gastritis and pancreatitis. Past History - Past Medical History Allergies/Adverse Reactions: Allergies Allergy/AdvReac Type Severity Reaction Status Date / Time No Known Allergies Allergy Verified 05/15/17 06:32 Home Medications: Ambulatory Orders Aspirin [ASA -] 81 mg PO DAILY 05/04/15 Acetaminophen [Tylenol .Regular Strength -] 650 mg PO Q6H PRN #0 tablet Gabapentin [Neurontin -] 300 mg PO TID 09/08/16 Hydrochlorothiazide [Hctz -] 12.5 mg PO DAILY cap 09/08/16 Metoprolol Succinate [Toprol XL -] 50 mg PO DAILY 09/08/16 Multivitamins [Multivit ([facility] Formulary)] 1 tab PO DAILY tab 09/08/16 Cholecalciferol (Vitamin D3) [Vitamin D3] 2,000 unit PO DAILY 02/18/17 Famotidine [Pepcid] 20 mg PO BID 02/18/17 Insulin Glargine,Hum.rec.anlog [Basaglar Kwikpen U-100] 5 unit SQ DAILY Lipase/Protease/Amylase [Tommie Dr 6,000 Units Capsule] 1 cap PO TIDCM 02/18/17 Mirtazapine 30 mg PO DAILY 02/18/17 Simvastatin 20 mg PO HS 02/18/17 Sitagliptin Phosphate [Januvia] 50 mg PO DAILY 02/18/17 Tiotropium [place] [Spiriva] 2 inh IH DAILY 02/18/17 Nitrofurantoin Monohyd/M-Cryst [Macrobid -] 100 mg PO BID #14 capsule 02/19/17 Ondansetron [Zofran Odt -] 4 mg SL Q8H PRN #21 od.tablet 02/19/17 Oxycodone HCl/Acetaminophen [Percocet 5-325 mg Tablet] 1 tab PO Q6H PRN #12 tablet MDD 4 tab 02/19/17 Anemia: No Asthma: Yes Cancer: No Cardiac Disorders: No CVA: No COPD: No DVT: No Dementia: No Diabetes: Yes Dialysis: No GI Disorders: No Disorders: No HTN: Yes Hypercholesterolemia: Yes Kidney Stones: No Liver Disease: No Psychiatric Problems: No Seizures: No Thyroid Disease: No Lung CA: No - Surgical History Abdominal Surgery: No Appendectomy: No Cardiac Surgery: No Cholecystectomy: No Gastric Stapling: No GI Surgery: No Lung Surgery: No Neurologic Surgery: No - Suicide/Smoking/Psychosocial Hx Smoking Status: Yes Smoking History: Unknown if ever smoked Have you smoked in the past 12 months: No Number of Cigarettes Smoked Daily: 10 Information on smoking cessation initiated: No Hx Alcohol Use: No Drug/Substance Use Hx: No Substance Use Type: None Abd/GI Specific PMHX - Complaint Specific PMHX Colitis: No Diverticulitis: No Gall Bladder Disease: No GERD: No Hepatitis: No Irritable Bowel Synd (IBS): No Pancreatitis: No GI Ulcer Disease: No Review of Systems - Review of Systems Constitutional: Yes: Chills, Fever. No: Unexplained wgt Loss HEENTM: No: Nose Congestion, Throat Pain Respiratory: No: Cough, Shortness of Breath Cardiac (ROS): No: Chest Pain, Palpitations ABD/GI: Yes: Diarrhea, Nausea, Rectal Bleeding, Vomiting. No: Constipated : No: Burning, Dysuria Musculoskeletal: No: Back Pain, Neck Pain Integumentary: No: Bruising, Rash Neurological: No: Headache, Numbness, Tingling, Weakness, Dizziness Endocrine: No: Unexplained Weight Gain, Unexplained Weight Loss *Physical Exam - Vital Signs Last Vital Signs Temp Pulse Resp BP Pulse Ox 99.7 F H 90 18 215/98 97 05/15/17 06:32 05/15/17 07:04 05/15/17 07:04 05/15/17 07:04 05/15/17 07:04 - Physical Exam General Appearance: Yes: Nourished, Appropriately Dressed, Moderate Distress, Other (writhing in hospital bed, intermittently moderately distressed, actively vomiting) HEENT: positive: EOMI, Normal Voice, Hearing Grossly Normal. negative: Scleral Icterus (R), Scleral Icterus (L), Nasal Congestion Neck: positive: Trachea midline, Supple. negative: Tender, Rigid Respiratory/Chest: positive: Lungs Clear, Normal Breath Sounds. negative: Respiratory Distress, Crackles, Rhonchi, Stridor, Wheezing Cardiovascular: positive: Regular Rhythm, Tachycardia. negative: Murmur Gastrointestinal/Abdominal: positive: Normal Bowel Sounds, Tender (moderate epigastric and umbilical tenderness to palpation), Soft, Other (no peritoneal signs, negative Hdez's sign, no McBurney's point ttp). negative: Organomegaly , Pulsatile Mass, Guarding Musculoskeletal: positive: Normal Inspection. negative: CVA Tenderness, Decreased Range of Motion, Vertebral Tenderness Extremity: positive: Normal Capillary Refill, Normal Inspection, Normal Range of Motion, Other (right BKA noted). negative: Tender, Cyanosis Integumentary: positive: Normal Color, Dry, Warm. negative: Erythema, Rash, Bruising Neurologic: positive: mail superintendent II-XII NML intact (grossly), Fully Oriented, Alert, Normal Response, Motor Strength 5/5 ED Treatment Course - LABORATORY CBC & Chemistry Diagram: 05/15/17 08:09 05/15/17 08:09 Medical Decision Making - Medical Decision Making 52 YOF with h/o gastritis, pancreatitis, and non-adherent IDDM and HTN p/w abdominal pain, n/v/d. Similar to prior diagnoses of gastritis and pancreatitis. On exam VS with BP initially 228/116, repeat 220/100, moderate distress, writhing, vomiting. Epigastric and umbilical ttp but otherwise exam unremarkable. DDX IBNLT gastroparesis, pancreatitis, gastritis/gastroenteritis, biliary colic , UTI, etc. Unlikely AAA without midline pulsatile mass. Unlikely ACS w/o chest pain but will check EKG. Unlikely renal stone without lateralization of pain or CVA tenderness. Ordered is CBCD, CMP, lipase, UA, Cx, EKG, Reglan, Dilaudid. 05/15/17 09:05 Abdominal re-exam after Reglan and Dilaudid - moderate ttp epigastrium and umbilical. Repeat BP with systolic remaining >220. IV labetalol 20 mg ordered and given. 05/15/17 11:50 Patient returned from ultrasound after completing study. Patient with continued abdominal pain; IV benadryl and compazine ordered. Dr. Pimentel (admitting for Dr. Nair) paged to the ED planning obs admission. *DC/Admit/Observation/Transfer Diagnosis at time of Disposition: Abdominal pain - Discharge Dispostion Condition at time of disposition: Stable Admit: Yes - Referrals Referrals: Herbert Jo [Primary Care Provider] - - Patient Instructions - Post Discharge Activity
[2017-05-15] MEDS ORDERED: HYDROmorphone HCL CARPU-JECT 1 MG/1 ML DISP.SYRIN IVPUSH ONE (07:56)
[2017-05-15] MEDS ORDERED: METOCLOPRAMIDE HCL INJECTION 10 MG/2 ML VIAL IVPUSH ONE (07:56)
[2017-05-15] MEDS ORDERED: HYDROmorphone HCL CARPU-JECT 1 MG/1 ML DISP.SYRIN ONE (08:00)
[2017-05-15 08:25] LABS: EOSINOPHIL 0.1 % (0-4.5); MCH 29.3 pg (25.7-33.7); MCHC 32.9 g/dl (32.0-36.0); MEAN CELL VOLUME 88.9 fl (80-96); NEUTROPHILS 93.2 % (42.8-82.8); PLATELET COUNT 414 K/MM3 (134-434); RDW 14.9 % (11.6-15.6); WHITE BLOOD COUNT 16.7 K/mm3 (4.0-10.0)
[2017-05-15] MEDS ORDERED: LABETALOL HCL 5 MG/1 ML (200MG/40ML VIAL) IVPB ONE (08:45)
[2017-05-15] MEDS ORDERED: LABETALOL HCL 5 MG/1 ML (100MG/20 ML VIAL) IVPUSH ONE ×3 (08:50→14:18)
[2017-05-15 08:56] LABS: ALK PHOS 274 U/L (45-117); ANION GAP 9 (8-16); BILIRUBIN,TOTAL 0.7 mg/dL (0.2-1.0); CALCIUM 8.3 mg/dL (8.5-10.1); CO2 23 mmol/L (21-32); CREATININE 1.2 mg/dL (0.55-1.02); SGOT/AST 24 U/L (15-37); SGPT/ALT 25 U/L (12-78)
[2017-05-15 09:02] LABS: GLUCOSE,RANDOM 325 mg/dL (74-106)
[2017-05-15] MEDS ORDERED: HYDROCHLOROTHIAZIDE 25 MG TABLET (FP) PO ONE (09:44)
[2017-05-15 10:22] LABS: ACETONE SERUM NEGATIVE (NEGATIVE)
[2017-05-15] MEDS ORDERED: PROCHLORPERAZINE INJECTION 10 MG/2 ML VIAL IVPB ONE (11:42)
[2017-05-15] MEDS ORDERED: SODIUM CHLORIDE 0.9% 1000 ML INFUS.BAG IV ONE ×2 (12:51)
[2017-05-15] MEDS ORDERED: INSULIN REGULAR HUMAN 100 UNITS/ML *VIAL SQ ONE (14:02)
--- NOTE | 2017-05-15 14:22 | CON.GI ---
Consult Consult Specialty:: GI Reason for Consultation:: andominal pain, nausea, vomiting - History of Present Illness History of Present Illness: 52 yof admitted with 10/10 epigastric/midabdomenal intermittent pain x 1 day, Radiating to back. Onset after Thanksgiving dinner. Associated with chills, nausea, vomiting, diarrhea, streaks of bright blood in brown stools. There is a history of gastritis and pancreatitis. The patient reports the symptoms are similar to prior pancreatitis. US of the liver showed fatty infiltrate, enlarged , w/o signs of inflammation GB with sludge and gallstones. Normal CBD. CT A/P w/ o contrast showed possible acute on chronic, calcified, pancreatitis and question of colitis. WBC 16K with left shift, normal liver enzymes, bili and lipase. ALP x2 normal and 231/115 BP. At the time of the exam, on the floor, lethargic, easily arousable, pain-free. BP 168/98. Recievd dilaudid and benadryl earlier today. 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 Medical History Cardio/Vascular: Yes: HTN, Other (PAD) Pulmonary: Yes: Asthma Gastrointestinal: Yes: Pancreatitis Hepatobiliary: Yes: Other (ALCOHOLISM STOPPED ONE YEAR AGO) Renal/: Yes: Other (PYLEONEPHRITIS RECENTLY AT [facility]) Endocrine: Yes: Diabetes Mellitus - Past Surgical History Past Surgical History: Yes: Cholecystectomy - Alcohol/Substance Use Hx Alcohol Use: No - Smoking History Smoking history: Unknown if ever smoked Have you smoked in the past 12 months: No Aproximately how many cigarettes per day: 10 Home Medications - Allergies Allergies/Adverse Reactions: Allergies Allergy/AdvReac Type Severity Reaction Status Date / Time No Known Allergies Allergy Verified 05/15/17 06:32 - Home Medications Home Medications: Ambulatory Orders Aspirin [ASA -] 81 mg PO DAILY 05/04/15 Acetaminophen [Tylenol .Regular Strength -] 650 mg PO Q6H PRN #0 tablet Gabapentin [Neurontin -] 300 mg PO TID 09/08/16 Hydrochlorothiazide [Hctz -] 12.5 mg PO DAILY cap 09/08/16 Metoprolol Succinate [Toprol XL -] 50 mg PO DAILY 09/08/16 Multivitamins [Multivit ([facility] Formulary)] 1 tab PO DAILY tab 09/08/16 Cholecalciferol (Vitamin D3) [Vitamin D3] 2,000 unit PO DAILY 02/18/17 Famotidine [Pepcid] 20 mg PO BID 02/18/17 Insulin Glargine,Hum.rec.anlog [Basaglar Kwikpen U-100] 5 unit SQ DAILY Lipase/Protease/Amylase [Creon Dr 6,000 Units Capsule] 1 cap PO TIDCM 02/18/17 Mirtazapine 30 mg PO DAILY 02/18/17 Simvastatin 20 mg PO HS 02/18/17 Sitagliptin Phosphate [Januvia] 50 mg PO DAILY 02/18/17 Tiotropium [place] [Spiriva] 2 inh IH DAILY 02/18/17 Nitrofurantoin Monohyd/M-Cryst [Macrobid -] 100 mg PO BID #14 capsule 02/19/17 Ondansetron [Zofran Odt -] 4 mg SL Q8H PRN #21 od.tablet 02/19/17 Oxycodone HCl/Acetaminophen [Percocet 5-325 mg Tablet] 1 tab PO Q6H PRN #12 tablet MDD 4 tab 02/19/17 Family Disease History - Family Disease History Family History: Unremarkable (non-contributory) Review of Systems Findings/Remarks: Please refer to H&P Physical Exam-GI Vital Signs: Vital Signs Temperature 99.7 F H 05/15/17 06:32 Pulse Rate 89 05/15/17 11:59 Respiratory Rate 20 05/15/17 11:59 Blood Pressure 210/101 05/15/17 11:59 O2 Sat by Pulse Oximetry (%) 100 05/15/17 09:00 Constitutional: Yes: Mild Distress, Other (shivering) Eyes: Yes: Conjunctiva Clear HENT: Yes: Atraumatic Neck: Yes: Supple Cardiovascular: Yes: Regular Rate and Rhythm Respiratory: Yes: Regular ...Auscultate: Yes: Normoactive Bowel Sounds ...Palpate: Yes: Soft. No: Tenderness, Tenderness, Epigastium, Tenderness, Rebound Musculoskeletal: Yes: Other (r. foot above ankle amupation) Neurological: Yes: Lethargy, Other (arousable) Labs: CBC, BMP 05/15/17 08:09 05/15/17 08:09 Laboratory Results - last 24 hr 05/15/17 05/15/17 05/15/17 08:09 08:09 08:15 WBC 16.7 H D RBC 4.56 Hgb 13.4 Hct 40.6 MCV 88.9 MCH 29.3 MCHC 32.9 RDW 14.9 Plt Count 414 D MPV 8.0 Neutrophils % 93.2 H D Lymphocytes % 3.7 L D Monocytes % 2.0 L Eosinophils % 0.1 D Basophils % 1.0 Sodium 144 Potassium 4.0 D Chloride 112 H Carbon Dioxide 23 Anion Gap 9 BUN 18 D Creatinine 1.2 H D Creat Clearance w eGFR 46.82 Random Glucose 325 H* D Calcium 8.3 L Total Bilirubin 0.7 D AST 24 D ALT 25 D Alkaline Phosphatase 274 H D Total Protein 5.0 L Albumin 2.0 L Lipase 123 Acetone, Qual Negative L Imaging - Results Cat Scan: Report Reviewed (please see HPI) Ultrasound: Report Reviewed Problem List - Problems (1) Hematochezia Code(s): K92.1 - MELENA (2) Colitis Code(s): K52.9 - NONINFECTIVE GASTROENTERITIS AND COLITIS, UNSPECIFIED Assessment/Plan A 52 yof with advanced DM, chronic pancreatitis admitted with abdominal pain, nausea, vomiting, diarrhea, leukocytosis with pancreatitis and colitis on CT. Has biliary sludge and gallstones on US w/o evidence of GB inflammation. Onset of the symptoms after Thanksgiving dinner. Currently denies abdominal pain. t- 100.7, lethargic, arousable (?dilaudid, ?benadryl), and hypertensive. She is not hemoconsentrated, and has normal BUN. Given the findings and presentation, would approach this patient as having acute , infectious vs ischemic colitis, and possibly mild, acute on chronic pancreatitis. BP control Tylenol PRN fever Careful IVF (HTN) NPO (DM) Stool, urine, blood cultures, Stool c. diff toxin Abx to cover colonic sima incuding c. diff Monitor for hematochezia Pain management and antiemetics PRN Monitor Hgb, WBC, electrolytes, liver enzymes Discussed with ID on the case Will follow
[2017-05-15] MEDS ORDERED: INSULIN (NOVOLOG) ASPART 100 UNITS/ML 10ML VIAL ONE (14:31)
--- NOTE | 2017-05-15 14:45 | HP ---
Admitting History and Physical - Primary Care Physician PCP: Lula Pimentel - Admission Chief Complaint: abdominal pain History of Present Illness: This is a 52 YOF with h/o gastritis, pancreatitis, IDDM (non adherent), and HTN (non adherent) who presents with 10/10 sharp fluctuating mid-abdominal pain radiating to the back since 10 pm last night (05/15). The onset was shortly after she ate Thanksgiving dinner and has been fluctuating (strong for 20 minutes then mild for 5 minutes) since then. She has had about 4 episodes of vomiting, and an episode of diarrhea which she states had blood, as well as fever and chills. She denies dysuria. She states that these symptoms feel the same as her prior gastritis and pancreatitis. in ER elevated WBC, elevated bgm got insulin also elevated BP got labetolol systolic form 210 now down to 170 History Source: Patient, Medical Record - Past Medical History Cardiovascular: Yes: HTN, Hyperlipdemia, Other (PAD) Pulmonary: Yes: Asthma Gastrointestinal: Yes: Pancreatitis Hepatobiliary: Yes: Other (ALCOHOLISM STOPPED ONE YEAR AGO) Renal/: Yes: Other (PYLEONEPHRITIS RECENTLY AT [facility]) Endocrine: Yes: Diabetes Mellitus - Past Surgical History Past Surgical History: Yes: Cholecystectomy - Smoking History Smoking history: Unknown if ever smoked Have you smoked in the past 12 months: No Aproximately how many cigarettes per day: 10 - Alcohol/Substance Use Hx Alcohol Use: No Home Medications - Allergies Allergies/Adverse Reactions: Allergies Allergy/AdvReac Type Severity Reaction Status Date / Time No Known Allergies Allergy Verified 05/15/17 06:32 - Home Medications Home Medications: Ambulatory Orders Aspirin [ASA -] 81 mg PO DAILY 05/04/15 Acetaminophen [Tylenol .Regular Strength -] 650 mg PO Q6H PRN #0 tablet Gabapentin [Neurontin -] 300 mg PO TID 09/08/16 Hydrochlorothiazide [Hctz -] 12.5 mg PO DAILY cap 09/08/16 Metoprolol Succinate [Toprol XL -] 50 mg PO DAILY 09/08/16 Multivitamins [Multivit ([facility] Formulary)] 1 tab PO DAILY tab 09/08/16 Cholecalciferol (Vitamin D3) [Vitamin D3] 2,000 unit PO DAILY 02/18/17 Famotidine [Pepcid] 20 mg PO BID 02/18/17 Insulin Glargine,Hum.rec.anlog [Basaglar Kwikpen U-100] 5 unit SQ DAILY Lipase/Protease/Amylase [Tommie Fonseca 6,000 Units Capsule] 1 cap PO TIDCM 02/18/17 Mirtazapine 30 mg PO DAILY 02/18/17 Simvastatin 20 mg PO HS 02/18/17 Sitagliptin Phosphate [Januvia] 50 mg PO DAILY 02/18/17 Tiotropium [place] [Spiriva] 2 inh IH DAILY 02/18/17 Nitrofurantoin Monohyd/M-Cryst [Macrobid -] 100 mg PO BID #14 capsule 02/19/17 Ondansetron [Zofran Odt -] 4 mg SL Q8H PRN #21 od.tablet 02/19/17 Oxycodone HCl/Acetaminophen [Percocet 5-325 mg Tablet] 1 tab PO Q6H PRN #12 tablet MDD 4 tab 02/19/17 Review of Systems Findings/Remarks: per patient she was in pain the whole night and now finally pain is relieved and fell asleep - Review of Systems Constitutional: reports: Other (sleeping) Physical Examination Vital Signs: Vital Signs Temperature 99.7 F H 05/15/17 06:32 Pulse Rate 89 05/15/17 11:59 Respiratory Rate 20 05/15/17 11:59 Blood Pressure 210/101 05/15/17 11:59 O2 Sat by Pulse Oximetry (%) 100 05/15/17 09:00 Constitutional: Yes: Calm Neck: Yes: Trachea Midline Cardiovascular: Yes: Regular Rate and Rhythm, S1, S2 Respiratory: Yes: CTA Bilaterally Gastrointestinal: Yes: Normal Bowel Sounds, Soft Extremities: Yes: Other (BKA) Neurological: Yes: Other (sleeping) Labs: CBC, BMP 05/15/17 08:09 05/15/17 08:09 Imaging - Results Cat Scan: Report Reviewed (acute on chronic pancreatitis) Problem List - Problems (1) Abdominal pain Assessment/Plan: possible colitis vs pancretitis iv abx trend wbc npo ivf GI and ID consult Code(s): R10.9 - UNSPECIFIED ABDOMINAL PAIN (2) Diabetes Assessment/Plan: bgm sliding scale hga1c cuurently NPO given possible colitis vs panceratits hold januvia check lipid panel hold statin given increaseLFT Code(s): E11.9 - TYPE 2 DIABETES MELLITUS WITHOUT COMPLICATIONS Qualifiers: Diabetes mellitus type: type 2 (3) Colitis Assessment/Plan: npo ivf abx Code(s): K52.9 - NONINFECTIVE GASTROENTERITIS AND COLITIS, UNSPECIFIED (4) Hypertension Assessment/Plan: monitor BP cardio BB hold hctz given slight inc in creatinine can add norvasc Code(s): I10 - ESSENTIAL (PRIMARY) HYPERTENSION (5) Hematochezia Assessment/Plan: npo monitor for any more bloody bm trend cbc ppi Code(s): K92.1 - MELENA
[2017-05-15] MEDS ORDERED: METOPROLOL SUCCINATE 50 MG TAB.SR.24H (FP) PO SCH (15:00)
[2017-05-15] MEDS ORDERED: PIPERACILLIN/TAZOB 3.375 GM 3.375 GM in DEXTROSE 5%-WATER - 50 ML IVPB SCH (15:00)
[2017-05-15] MEDS ORDERED: PIPERACIL/TAZOB 3.375 GM 3.375 GM/50 ML PREMIX IVPB SCH (15:00)
--- NOTE | 2017-05-15 15:27 | PN ---
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 does not wish to speak with me reports vomiting and abdominal pain after thanksgiving dinner yesterday +diarrhea- unclear how much Aide reports she is complaining of chills will not review foods she ate or travel history with me history of chronic pancreatitis d/w GI lipase is normal ct scan with pancreatitis/colitis leukocytosis noted abdominal pain-- normal lipase possible colitis/infectious gastroenteritis ?ischemic colitis obtain blood cultures stat stool culture stool cdiff stool WBC empiric zosyn/flagyl Problem List - Problems (1) Abdominal pain Code(s): R10.9 - UNSPECIFIED ABDOMINAL PAIN (2) Colitis Code(s): K52.9 - NONINFECTIVE GASTROENTERITIS AND COLITIS, UNSPECIFIED
[2017-05-15] MEDS ORDERED: ACETAMINOPHEN 325 MG TABLET (FP) PO PRN (15:48)
[2017-05-15 16:49] LABS: MCH 29.9 pg (25.7-33.7); MCHC 33.1 g/dl (32.0-36.0); MEAN CELL VOLUME 90.2 fl (80-96); MEAN PLT VOLUME 8.6 fl (7.5-11.1); PLATELET COUNT 352 K/MM3 (134-434); RDW 14.9 % (11.6-15.6); WHITE BLOOD COUNT 19.8 K/mm3 (4.0-10.0)
[2017-05-15] MEDS: PANTOPRAZOLE SODIUM 40 MG VIAL IVPUSH SCH (16:53)
[2017-05-15] MEDS: PIPERACILLIN/TAZOB 3.375 GM 3.375 GM in DEXTROSE 5%-WATER - 50 ML IVPB SCH (16:53)
[2017-05-15] MEDS: SODIUM CHLORIDE 1,000 ML IV SCH (16:53)
[2017-05-15] MEDS: INSULIN SLIDING SCALE (NOVOLOG) 1 VIAL SQ SCH ×2 (16:54→21:55)
--- NOTE | 2017-05-15 16:54 | CON.CARD ---
Consult Consult Specialty:: Cardiology Reason for Consultation:: HTN. Abdominal pain - History of Present Illness Chief Complaint: Abdominal pain History of Present Illness: 52 year old female with a PMH of o gastritis, pancreatitis, IDDM (non adherent) , and HTN (non adherent), asthma, HLD. ETOH use stopped one year ago. She presented with 10/10 sharp fluctuating mid-abdominal pain radiating to the back since 10 pm last night (05/15). The onset was shortly after she ate Thanksgiving dinner and has been fluctuating (strong for 20 minutes then mild for 5 minutes) since then. She has had about 4 episodes of vomiting, and an episode of diarrhea which she states had blood, as well as fever and chills. During my examination she was sleepy, groggy, and not answering questions. He home dose of amlodipine is 5 mg daily and this was increased to 1- mg daily. - Past Medical History Cardio/Vascular: Yes: HTN, Other (PAD) Pulmonary: Yes: Asthma Gastrointestinal: Yes: Pancreatitis Hepatobiliary: Yes: Other (ALCOHOLISM STOPPED ONE YEAR AGO) Renal/: Yes: Other (PYLEONEPHRITIS RECENTLY AT [facility]) Endocrine: Yes: Diabetes Mellitus - Past Surgical History Past Surgical History: Yes: Cholecystectomy - Alcohol/Substance Use Hx Alcohol Use: No - Smoking History Smoking history: Unknown if ever smoked Have you smoked in the past 12 months: No Aproximately how many cigarettes per day: 10 Home Medications - Allergies Allergies/Adverse Reactions: Allergies Allergy/AdvReac Type Severity Reaction Status Date / Time No Known Allergies Allergy Verified 05/15/17 06:32 - Home Medications Home Medications: Ambulatory Orders Aspirin [ASA -] 81 mg PO DAILY 05/04/15 Acetaminophen [Tylenol .Regular Strength -] 650 mg PO Q6H PRN #0 tablet Gabapentin [Neurontin -] 300 mg PO TID 09/08/16 Hydrochlorothiazide [Hctz -] 12.5 mg PO DAILY cap 09/08/16 Metoprolol Succinate [Toprol XL -] 50 mg PO DAILY 09/08/16 Multivitamins [Multivit ([facility] Formulary)] 1 tab PO DAILY tab 09/08/16 Cholecalciferol (Vitamin D3) [Vitamin D3] 2,000 unit PO DAILY 02/18/17 Famotidine [Pepcid] 20 mg PO BID 02/18/17 Insulin Glargine,Hum.rec.anlog [Basaglar Broikpen U-100] 5 unit SQ DAILY Lipase/Protease/Amylase [Tommie Fonseca 6,000 Units Capsule] 1 cap PO TIDCM 02/18/17 Mirtazapine 30 mg PO DAILY 02/18/17 Simvastatin 20 mg PO HS 02/18/17 Sitagliptin Phosphate [Januvia] 50 mg PO DAILY 02/18/17 Tiotropium [place] [Spiriva] 2 inh IH DAILY 02/18/17 Nitrofurantoin Monohyd/M-Cryst [Macrobid -] 100 mg PO BID #14 capsule 02/19/17 Ondansetron [Zofran Odt -] 4 mg SL Q8H PRN #21 od.tablet 02/19/17 Oxycodone HCl/Acetaminophen [Percocet 5-325 mg Tablet] 1 tab PO Q6H PRN #12 tablet MDD 4 tab 02/19/17 Review of Systems Unable to obtain ROS, reason: As per HPI Vital Signs: Vital Signs Temperature 99.7 F H 05/15/17 06:32 Pulse Rate 87 05/15/17 14:47 Respiratory Rate 20 05/15/17 14:47 Blood Pressure 168/98 05/15/17 14:47 O2 Sat by Pulse Oximetry (%) 95 05/15/17 14:47 Constitutional: Yes: Other (Sleepy, lethargic, not asnwering questions) HENT: Yes: WNL Respiratory: Yes: CTA Bilaterally Gastrointestinal: Yes: Soft Cardiovascular: Yes: Regular Rate and Rhythm (No MRHG, NL S1S2) Extremities: Yes: WNL Edema: No Neurological: Yes: Lethargy - Other Data Labs, Other Data: CBC, BMP 05/15/17 08:09 Assessment/Plan Hypertensive urgency BP now 168/98 mmHg - continue current meds Would not want to drop it further at this time , so would not was to add meds now Home BP meds include: Hydrochlorothiazide [Hctz -] 12.5 mg PO DAILY Metoprolol Succinate [Toprol XL -] 50 mg PO DAILY And amlodipine 5 mg PO daily (as per the RN at bedside) WBC 16.7 ABX as per medical team Would consider sending a Tox screen HLD Continue: Simvastatin 20 mg PO HS
[2017-05-15] MEDS ORDERED: amLODIPine BESYLATE 10 MG TABLET (FP) PO ONE (17:15)
[2017-05-15 20:21] LABS: TOTAL CELLS COUNTED 100
[2017-05-15 20:22] LABS: PLATELET ESTIMATE ADEQUATE
[2017-05-15] MEDS ORDERED: HYDROmorphone HCL CARPU-JECT 1 MG/1 ML DISP.SYRIN IVPUSH PRN (21:27)
[2017-05-15] MEDS: METRONIDAZOLE 500 MG PREMIXED 500 MG/100 ML MG IVPB SCH (21:48)
[2017-05-15] MEDS: ONDANSETRON 4 MG/2 ML VIAL IVPUSH PRN (21:55)
[2017-05-15] MEDS: HYDROmorphone HCL CARPU-JECT 1 MG/1 ML DISP.SYRIN IVPB PRN (21:57)
[2017-05-16] MEDS ORDERED: PT OWN MED DRAWER 7, Y5N ONE ×2 (01:12→21:10)
[2017-05-16] MEDS: PIPERACILLIN/TAZOB 3.375 GM 3.375 GM in DEXTROSE 5%-WATER - 50 ML IVPB SCH ×3 (01:20→17:17)
[2017-05-16] MEDS: METRONIDAZOLE 500 MG PREMIXED 500 MG/100 ML MG IVPB SCH ×3 (01:25→17:17)
[2017-05-16] MEDS: SODIUM CHLORIDE 1,000 ML IV SCH ×2 (04:21→15:01)
--- NOTE | 2017-05-16 05:48 | CONS ---
DATE OF CONSULTATION: DATE OF DICTATION: 05/15/2017 INFECTIOUS DISEASE CONSULTATION REQUESTING PHYSICIAN: Katy Naidu M.D. HISTORY OF PRESENT ILLNESS: This is a 52-year-old woman with diabetes and hypertension. She had a right BKA secondary to gangrene of her foot earlier this year. She is a very poor historian. She does not wish to speak with me. Much of the history is from the chart as a result. She reports vomiting and abdominal pain after Thanksgiving dinner yesterday. She has had diarrhea; it is unclear how much. The acute care certified nursing assistant reports that she is complaining of chills. She will not review what food she ate at home or travel history with me. She does have a history of chronic pancreatitis. The patient came to the emergency room with these complaints. ALLERGIES: She has no known drug allergies. MEDICATIONS: Her medications at home included adequate, Neurontin, hydrochlorothiazide, Toprol-XL, multivitamins, vitamin D, Pepcid, insulin, Creon, mirtazapine, simvastatin, Januvia, Spiriva, Zofran and Percocet. PAST MEDICAL HISTORY: Notable for asthma, diabetes, hypertension, hypercholesterolemia. She has a history of prior pancreatitis and gastritis. REVIEW OF SYSTEMS: She would not participate in a review of systems with me. SOCIAL HISTORY: She lives in the community. PHYSICAL EXAMINATION: Vital Signs: She had a fever of 99.7, pulse of 87, blood pressure 168/98, respiratory rate of 20, saturating 95% on room air. HEENT: Normocephalic. Eyes are anicteric. Neck: Supple. Lungs: Clear to auscultation. Heart: Regular rate and rhythm. Abdomen: She has mid-epigastric pain on palpation. Otherwise her abdomen is soft. Extremities: Without edema. DIAGNOSTIC STUDIES: White count 16.7, hemoglobin 13.4, platelets 414. BUN 18, creatinine 1.2, lipase 123. Sonogram of the abdomen was notable for some sludge in the gallbladder, but no gallbladder wall thickening or pericholecystic fluid. She had a CT scan of her abdomen and pelvis that was found to be consistent with chronic calcific pancreatitis with superimposed acute pancreatitis, and no pseudocyst or abscess. She had cholelithiasis, and she abnormal appearance of colon, with possible colitis. ASSESSMENT: In summary, this is a 52-year-old woman admitted with chills, abdominal pain, leukocytosis, possible colitis, infectious gastroenteritis; less likely, but with her diabetes, ischemic colitis. RECOMMENDATIONS: Obtain blood cultures stat; they were ordered. Stool was ordered as well for culture, Clostridium difficile and white cells. Treat her empirically with Zosyn and Flagyl, with further recommendations to follow. Gudelia FLOWERS/[id number]
[2017-05-16] MEDS: HYDROmorphone HCL CARPU-JECT 1 MG/1 ML DISP.SYRIN IVPB PRN ×3 (06:12→16:26)
[2017-05-16] MEDS: ONDANSETRON 4 MG/2 ML VIAL IVPUSH PRN (06:12)
[2017-05-16] MEDS ORDERED: amLODIPine BESYLATE 5 MG TABLET (FP) PO SCH ×2 (06:15→10:00)
[2017-05-16] MEDS ORDERED: METOPROLOL SUCCINATE 50 MG TAB.SR.24H (FP) PO SCH ×2 (06:15→10:00)
[2017-05-16] MEDS ORDERED: INSULIN (NOVOLOG) ASPART 100 UNITS/ML 10ML VIAL ONE (06:18)
[2017-05-16] MEDS: INSULIN SLIDING SCALE (NOVOLOG) 1 VIAL SQ SCH ×4 (06:20→21:12)
[2017-05-16 07:25] LABS: BASOPHIL 0.7 % (0-2.0); EOSINOPHIL 0.1 % (0-4.5); MCH 29.2 pg (25.7-33.7); MCHC 32.4 g/dl (32.0-36.0); MEAN PLT VOLUME 8.1 fl (7.5-11.1); NEUTROPHILS 88.7 % (42.8-82.8); PLATELET COUNT 333 K/MM3 (134-434); WHITE BLOOD COUNT 17.3 K/mm3 (4.0-10.0)
[2017-05-16 07:52] LABS: INR 0.95 (0.82-1.09); PROTHROMBIN TIME (PATIENT) 10.7 SEC (9.98-11.88)
[2017-05-16 07:59] LABS: AMYLASE 62 U/L (25-115); ANION GAP 9 (8-16); CALCIUM 7.5 mg/dL (8.5-10.1); CO2 21 mmol/L (21-32); CREATININE 1.4 mg/dL (0.55-1.02); GLUCOSE,RANDOM 278 mg/dL (74-106); MAGNESIUM 1.8 mg/dL (1.8-2.4)
[2017-05-16 08:46] LABS: CHOLESTEROL 356 mg/dL (50-200)
[2017-05-16] MEDS ORDERED: amLODIPine BESYLATE 5 MG TABLET (FP) PO ONE (09:50)
--- NOTE | 2017-05-16 09:52 | PN ---
Progress Note, Physician - Current Medication List Current Medications: Active Medications Acetaminophen (Tylenol -) 650 mg PO Q6H PRN PRN Reason: FEVER Amlodipine Besylate (Norvasc -) 5 mg PO DAILY ON LICENSE OF [facility] Last Admin: 05/16/17 06:13 Dose: 5 mg Hydromorphone HCl (Dilaudid Injection -) 0.5 mg IVPB Q4H PRN PRN Reason: PAIN Last Admin: 05/16/17 06:12 Dose: 0.5 mg Sodium Chloride (Normal Saline -) 1,000 mls @ 100 mls/hr IV ASDIR ON LICENSE OF [facility] Last Admin: 05/16/17 04:21 Dose: 100 mls/hr Piperacillin Sod/Tazobactam (Sod 3.375 gm/ Dextrose) 50 mls @ 100 mls/hr IVPB Q8H-IV ON LICENSE OF [facility] Last Admin: 05/16/17 01:20 Dose: 100 mls/hr Metronidazole (Flagyl 500mg Premixed Ivpb -) 500 mg in 100 mls @ 100 mls/hr IVPB Q8H-IV ON LICENSE OF [facility] Last Admin: 05/16/17 01:25 Dose: 100 mls/hr Insulin Aspart (Novolog Vial Sliding Scale -) 1 vial SQ ACHS ON LICENSE OF [facility] PRN Reason: Protocol Last Admin: 05/16/17 06:20 Dose: 4 units Metoprolol Succinate (Toprol Xl -) 50 mg PO DAILY ON LICENSE OF [facility] Last Admin: 05/16/17 06:13 Dose: 50 mg Ondansetron HCl (Zofran Injection) 4 mg IVPUSH Q8H PRN PRN Reason: NAUSEA AND/OR VOMITING Last Admin: 05/16/17 06:12 Dose: 4 mg Pantoprazole Sodium (Protonix Iv) 40 mg IVPUSH DAILY ON LICENSE OF [facility] Last Admin: 05/15/17 16:53 Dose: 40 mg Tiotropium [place] (Spiriva -) 1 puff IH DAILY ON LICENSE OF [facility] - Objective Vital Signs: Vital Signs Temperature 98.6 F 05/16/17 05:58 Pulse Rate 100 H 05/16/17 05:58 Respiratory Rate 20 05/16/17 05:58 Blood Pressure 185/100 05/16/17 05:58 O2 Sat by Pulse Oximetry (%) 95 05/15/17 21:40 Cardiovascular: Yes: Regular Rate and Rhythm Respiratory: Yes: Regular, CTA Bilaterally Gastrointestinal: Yes: Normal Bowel Sounds, Soft, Tenderness (mild ruq) Labs: CBC, BMP 05/16/17 06:38 05/16/17 06:38 INR, PTT INR 0.95 (0.82-1.09) 05/16/17 06:38 Assessment/Plan - Problems (1) Abdominal pain Assessment/Plan: possible colitis vs pancretitis iv abx trend wbc npo ivf GI and ID consult Code(s): R10.9 - UNSPECIFIED ABDOMINAL PAIN (2) Diabetes Assessment/Plan: bgm sliding scale hga1c cuurently NPO given possible colitis vs panceratits hold januvia check lipid panel hold statin given increaseLFT Code(s): E11.9 - TYPE 2 DIABETES MELLITUS WITHOUT COMPLICATIONS Qualifiers: Diabetes mellitus type: type 2 (3) Colitis Assessment/Plan: npo ivf abx Code(s): K52.9 - NONINFECTIVE GASTROENTERITIS AND COLITIS, UNSPECIFIED (4) Hypertension Assessment/Plan: elevated monitor BP cardio increase metoprolo to 50 bid hold hctz given slight inc in creatinine increase norvasc 10 mg add hydralazine 25 tid Code(s): I10 - ESSENTIAL (PRIMARY) HYPERTENSION (5) Hematochezia Assessment/Plan: npo monitor for any more bloody bm trend cbc ppi Code(s): K92.1 - MELENA
[2017-05-16] MEDS: PANTOPRAZOLE SODIUM 40 MG VIAL IVPUSH SCH (10:02)
[2017-05-16] MEDS: TIOTROPIUM BROMIDE 18 MCG/INH (DEVICE W/ 5 CAPSULES) IH SCH (11:48)
[2017-05-16] MEDS: METOPROLOL SUCCINATE 50 MG TAB.SR.24H (FP) PO SCH ×2 (11:48→21:13)
[2017-05-16] MEDS: hydrALAZINE HCL 25 MG TABLET (FP) PO SCH ×3 (12:10→21:13)
--- NOTE | 2017-05-16 14:24 | PN ---
GI Progress Note Subjective: GI F/U FOR DR LOVE PT DENIES N/V/F/C/S LESS ABDOMINAL PAIN STILL NPO NO RECTAL BLEEDING NO DIARRHEA - Objective Vital Signs: Vital Signs Temperature 98.3 F 05/16/17 14:16 Pulse Rate 82 05/16/17 14:16 Respiratory Rate 18 05/16/17 14:16 Blood Pressure 153/88 05/16/17 14:16 O2 Sat by Pulse Oximetry (%) 95 05/15/17 21:40 Constitutional: Well Nourished, No Distress, Calm (+BS/ TENDER TO PALPATION DIFFUSELY IN ALL QUADRANTS BUT NO REBOUND OR GUARDUING) Labs: CBC, BMP 05/16/17 06:38 05/16/17 06:38 INR, PTT INR 0.95 (0.82-1.09) 05/16/17 06:38 Assessment/Plan 52F WITH ACUTE ON CHRONIC PANCREATITIS WITHOUT EVIDENCE OF END ORGAN DAMAGE OR PANCREATIC NECROSIS STILL WITH ELEVATED WBC'S, BUT NO FEVER OR CHILLS SHE'S REQUESTING LIQUIDS PO AND LABS IMPROVED/ LIPASE NOW NORMAL, WOULD CONSIDER STARTING CLEARS PO AND ADVANCING TOLERATED ONCE SHE NO LONGER NEEDS PAIN MEDS--SHE TELLS ME THAT SHE JUST TOOK A PAIN SHOT RECC: AGGRESSIVE IVF/ START CLEARS WHEN PAIN MED REQ. ARE NEGLIGIBLE F/U LABS/ OBSERVE SUPPORTIVE CARE MD SCOTT
[2017-05-16] MEDS ORDERED: HYDROmorphone HCL CARPU-JECT 2 MG/1 ML DISP.SYRIN ONE (16:22)
[2017-05-16] MEDS: HYDROmorphone HCL CARPU-JECT 2 MG/1 ML DISP.SYRIN IVPB PRN (21:20)
[2017-05-17] MEDS: PIPERACILLIN/TAZOB 3.375 GM 3.375 GM in DEXTROSE 5%-WATER - 50 ML IVPB SCH ×3 (01:36→17:22)
[2017-05-17] MEDS: METRONIDAZOLE 500 MG PREMIXED 500 MG/100 ML MG IVPB SCH ×3 (02:26→18:34)
[2017-05-17] MEDS: SODIUM CHLORIDE 1,000 ML IV SCH ×2 (04:55→16:53)
[2017-05-17] MEDS: hydrALAZINE HCL 25 MG TABLET (FP) PO SCH ×3 (05:14→21:13)
[2017-05-17] MEDS: INSULIN SLIDING SCALE (NOVOLOG) 1 VIAL SQ SCH ×4 (06:06→21:16)
[2017-05-17] MEDS: HYDROmorphone HCL CARPU-JECT 2 MG/1 ML DISP.SYRIN IVPB PRN ×3 (08:22→21:13)
[2017-05-17] MEDS ORDERED: PT OWN MED DRAWER 7, Y5N ONE ×2 (09:37→17:20)
[2017-05-17] MEDS: amLODIPine BESYLATE 10 MG TABLET (FP) PO SCH (09:40)
[2017-05-17] MEDS: METOPROLOL SUCCINATE 50 MG TAB.SR.24H (FP) PO SCH ×2 (09:40→21:13)
[2017-05-17] MEDS: TIOTROPIUM BROMIDE 18 MCG/INH (DEVICE W/ 5 CAPSULES) IH SCH (09:42)
[2017-05-17] MEDS: PANTOPRAZOLE SODIUM 40 MG VIAL IVPUSH SCH (09:43)
[2017-05-17 10:25] LABS: BASOPHIL 1.2 % (0-2.0); EOSINOPHIL 1.5 % (0-4.5); MCH 29.5 pg (25.7-33.7); MEAN CELL VOLUME 89.5 fl (80-96); MEAN PLT VOLUME 7.7 fl (7.5-11.1); NEUTROPHILS 73.6 % (42.8-82.8); PLATELET COUNT 317 K/MM3 (134-434); RDW 14.9 % (11.6-15.6); WHITE BLOOD COUNT 12.9 K/mm3 (4.0-10.0)
[2017-05-17 11:04] LABS: ALBUMIN 1.4 g/dl (3.4-5.0); ANION GAP 9 (8-16); CALCIUM 7.2 mg/dL (8.5-10.1); CO2 21 mmol/L (21-32); CREATININE 1.4 mg/dL (0.55-1.02); GLUCOSE,RANDOM 201 mg/dL (74-106); SGOT/AST 44 U/L (15-37); SGPT/ALT 22 U/L (12-78)
[2017-05-17 11:06] LABS: ALK PHOS 176 U/L (45-117); BILIRUBIN,TOTAL 0.5 mg/dL (0.2-1.0); TOT PROT 3.9 g/dl (6.4-8.2)
--- NOTE | 2017-05-17 13:46 | PN ---
Progress Note, Physician - Current Medication List Current Medications: Active Medications Acetaminophen (Tylenol -) 650 mg PO Q6H PRN PRN Reason: FEVER Amlodipine Besylate (Norvasc -) 10 mg PO DAILY [facility] Last Admin: 05/17/17 09:40 Dose: 10 mg Hydralazine HCl (Apresoline -) 25 mg PO TID [facility] Last Admin: 05/17/17 13:32 Dose: 25 mg Hydromorphone HCl (Dilaudid Injection -) 0.5 mg IVPB Q4H PRN PRN Reason: PAIN Last Admin: 05/17/17 08:22 Dose: 0.5 mg Sodium Chloride (Normal Saline -) 1,000 mls @ 100 mls/hr IV ASDIR [facility] Last Admin: 05/17/17 04:55 Dose: 100 mls/hr Piperacillin Sod/Tazobactam (Sod 3.375 gm/ Dextrose) 50 mls @ 100 mls/hr IVPB Q8H-IV [facility] Last Admin: 05/17/17 09:43 Dose: 100 mls/hr Metronidazole (Flagyl 500mg Premixed Ivpb -) 500 mg in 100 mls @ 100 mls/hr IVPB Q8H-IV [facility] Last Admin: 05/17/17 10:20 Dose: 100 mls/hr Insulin Aspart (Novolog Vial Sliding Scale -) 1 vial SQ ACHS [facility] PRN Reason: Protocol Last Admin: 05/17/17 11:27 Dose: Not Given Metoprolol Succinate (Toprol Xl -) 50 mg PO BID [facility] Last Admin: 05/17/17 09:40 Dose: 50 mg Ondansetron HCl (Zofran Injection) 4 mg IVPUSH Q8H PRN PRN Reason: NAUSEA AND/OR VOMITING Last Admin: 05/16/17 06:12 Dose: 4 mg Pantoprazole Sodium (Protonix Iv) 40 mg IVPUSH DAILY [facility] Last Admin: 05/17/17 09:43 Dose: 40 mg Tiotropium [place] (Spiriva -) 1 puff IH DAILY [facility] Last Admin: 05/17/17 09:42 Dose: 1 inh - Objective Vital Signs: Vital Signs Temperature 98.7 F 05/17/17 10:00 Pulse Rate 76 05/17/17 10:00 Respiratory Rate 20 05/17/17 10:00 Blood Pressure 140/88 05/17/17 10:00 O2 Sat by Pulse Oximetry (%) 95 05/17/17 09:00 Cardiovascular: Yes: Regular Rate and Rhythm Respiratory: Yes: Regular, CTA Bilaterally Gastrointestinal: Yes: Normal Bowel Sounds, Soft. No: Tenderness Labs: CBC, BMP 05/17/17 10:21 05/17/17 10:21 INR, PTT INR 0.95 (0.82-1.09) 05/16/17 06:38 Assessment/Plan - Problems (1) Abdominal pain Assessment/Plan: possible colitis vs pancretitis iv abx trend wbc npo ivf GI and ID consult Code(s): R10.9 - UNSPECIFIED ABDOMINAL PAIN (2) Diabetes Assessment/Plan: bgm sliding scale hga1c cuurently NPO given possible colitis vs panceratits hold januvia check lipid panel hold statin given increaseLFT Code(s): E11.9 - TYPE 2 DIABETES MELLITUS WITHOUT COMPLICATIONS Qualifiers: Diabetes mellitus type: type 2 (3) Colitis Assessment/Plan: npo--clear ivf abx Code(s): K52.9 - NONINFECTIVE GASTROENTERITIS AND COLITIS, UNSPECIFIED (4) Hypertension Assessment/Plan: elevated monitor BP cardio increase metoprolo to 50 bid hold hctz given slight inc in creatinine increase norvasc 10 mg add hydralazine 25 tid Code(s): I10 - ESSENTIAL (PRIMARY) HYPERTENSION (5) Hematochezia Assessment/Plan: npo monitor for any more bloody bm trend cbc ppi Code(s): K92.1 - MELENA
--- NOTE | 2017-05-17 14:02 | PN ---
Progress Note, Physician History of Present Illness: Awake, alert No c/o abdominal pain, N/V. No BM No F/C WBC improving Tolerating liquid diet BC no growth - Current Medication List Current Medications: Active Medications Acetaminophen (Tylenol -) 650 mg PO Q6H PRN PRN Reason: FEVER Amlodipine Besylate (Norvasc -) 10 mg PO DAILY [facility] Last Admin: 05/17/17 09:40 Dose: 10 mg Hydralazine HCl (Apresoline -) 25 mg PO TID [facility] Last Admin: 05/17/17 13:32 Dose: 25 mg Hydromorphone HCl (Dilaudid Injection -) 0.5 mg IVPB Q4H PRN PRN Reason: PAIN Last Admin: 05/17/17 08:22 Dose: 0.5 mg Sodium Chloride (Normal Saline -) 1,000 mls @ 100 mls/hr IV ASDIR [facility] Last Admin: 05/17/17 04:55 Dose: 100 mls/hr Piperacillin Sod/Tazobactam (Sod 3.375 gm/ Dextrose) 50 mls @ 100 mls/hr IVPB Q8H-IV [facility] Last Admin: 05/17/17 09:43 Dose: 100 mls/hr Metronidazole (Flagyl 500mg Premixed Ivpb -) 500 mg in 100 mls @ 100 mls/hr IVPB Q8H-IV [facility] Last Admin: 05/17/17 10:20 Dose: 100 mls/hr Insulin Aspart (Novolog Vial Sliding Scale -) 1 vial SQ ACHS [facility] PRN Reason: Protocol Last Admin: 05/17/17 11:27 Dose: Not Given Metoprolol Succinate (Toprol Xl -) 50 mg PO BID [facility] Last Admin: 05/17/17 09:40 Dose: 50 mg Ondansetron HCl (Zofran Injection) 4 mg IVPUSH Q8H PRN PRN Reason: NAUSEA AND/OR VOMITING Last Admin: 05/16/17 06:12 Dose: 4 mg Pantoprazole Sodium (Protonix Iv) 40 mg IVPUSH DAILY [facility] Last Admin: 05/17/17 09:43 Dose: 40 mg Tiotropium [place] (Spiriva -) 1 puff IH DAILY [facility] Last Admin: 05/17/17 09:42 Dose: 1 inh - Objective Vital Signs: Vital Signs Temperature 98.7 F 05/17/17 10:00 Pulse Rate 76 05/17/17 10:00 Respiratory Rate 20 05/17/17 10:00 Blood Pressure 140/88 05/17/17 10:00 O2 Sat by Pulse Oximetry (%) 95 05/17/17 09:00 Constitutional: Yes: No Distress Cardiovascular: Yes: Regular Rate and Rhythm, S1, S2 Respiratory: Yes: CTA Bilaterally Gastrointestinal: Yes: Normal Bowel Sounds, Soft. No: Tenderness Labs: CBC, BMP 05/17/17 10:21 05/17/17 10:21 INR, PTT INR 0.95 (0.82-1.09) 05/16/17 06:38 Assessment/Plan Hx acute on chronic pancreatitis Infectious v. ischemic colitis Fever/ leukocytosis- improved Clinically improving Continue zosyn/ flagyl
--- NOTE | 2017-05-17 15:43 | PN ---
GI Progress Note Subjective: GI F/U FOR DR LOVE TOLERATING LIQUID DIET NO PAIN ASKING TO GO HOME NO N/V/F/C/S NO DIARRHEA NO RECTAL BLEEDING DID NOT REQUIRE PAIN MEDS TODAY PER HER REPORT - Objective Vital Signs: Vital Signs Temperature 98 F 05/17/17 14:32 Pulse Rate 73 05/17/17 14:32 Respiratory Rate 20 05/17/17 14:32 Blood Pressure 133/69 05/17/17 14:32 O2 Sat by Pulse Oximetry (%) 95 05/17/17 09:00 Constitutional: Well Nourished, No Distress, Calm (VERY SOFT AND NT NO M/R/G NO TENDERNESS TO PALPATION) Labs: CBC, BMP 05/17/17 10:21 05/17/17 10:21 INR, PTT INR 0.95 (0.82-1.09) 05/16/17 06:38 Assessment/Plan 52F WITH ACUTE ON CHRONIC PANCREATITIS--APPEARS CLINICALLY AND BIOCHEMICALLY RESOLVED PT ON FULL LIQUIDS AND WOULD LIKE TO EAT SOLIDS AND GO HOME HAVE ADVISED A LOW RESIDUE, LACTOSE FREE DIET DUE TO RECENT DIARRHEA IF TOLERATED, OUTPATIENT GI F/U OBSERVE MD SCOTT
[2017-05-18] MEDS: PIPERACILLIN/TAZOB 3.375 GM 3.375 GM in DEXTROSE 5%-WATER - 50 ML IVPB SCH ×2 (02:44→10:39)
[2017-05-18] MEDS: METRONIDAZOLE 500 MG PREMIXED 500 MG/100 ML MG IVPB SCH ×2 (02:45→10:39)
[2017-05-18] MEDS: HYDROmorphone HCL CARPU-JECT 2 MG/1 ML DISP.SYRIN IVPB PRN ×2 (05:00→08:44)
[2017-05-18] MEDS: hydrALAZINE HCL 25 MG TABLET (FP) PO SCH ×2 (06:48→14:10)
[2017-05-18] MEDS: INSULIN SLIDING SCALE (NOVOLOG) 1 VIAL SQ SCH ×2 (06:49→11:48)
[2017-05-18] MEDS ORDERED: PT OWN MED DRAWER 7, Y5N ONE ×2 (10:31→16:53)
[2017-05-18] MEDS: TIOTROPIUM BROMIDE 18 MCG/INH (DEVICE W/ 5 CAPSULES) IH SCH (10:34)
[2017-05-18] MEDS: PANTOPRAZOLE SODIUM 40 MG VIAL IVPUSH SCH (10:36)
[2017-05-18] MEDS: METOPROLOL SUCCINATE 50 MG TAB.SR.24H (FP) PO SCH (10:39)
[2017-05-18] MEDS: amLODIPine BESYLATE 10 MG TABLET (FP) PO SCH (10:39)
[2017-05-18] MEDS ORDERED: INSULIN (NOVOLOG) ASPART 100 UNITS/ML 10ML VIAL ONE (11:39)
[2017-05-18] MEDS ORDERED: oxyCODONE HCL 5 MG TABLET PO PRN (12:00)
--- NOTE | 2017-05-18 14:55 | PN ---
Progress Note (short form) - Note Progress Note: abdominal pain, vomiting, diarrhea have resolved no stools sent feels hungry wants to eat Vital Signs Period Temp Pulse Resp BP Sys/[place] Pulse Ox Last 24 Hr 98.2 F-98.5 F 66-73 18-20 144-160/74-87 96-96 cor-rrr llungs decreased bs at bases abd soft,nt ext no edema CBC, BMP 05/17/17 10:21 05/17/17 10:21 Microbiology 05/15/17 19:00 Blood - Peripheral Venous Blood Culture - Preliminary NO GROWTH OBTAINED AFTER 48 HOURS, INCUBATION TO CONTINUE FOR 3 DAYS. 05/15/17 19:00 Blood - Peripheral Venous Blood Culture - Preliminary NO GROWTH OBTAINED AFTER 48 HOURS, INCUBATION TO CONTINUE FOR 3 DAYS. a/p ?gastroenteritis- appears resolved will d/c antibiotics advance diet as per GI please call back if needed Problem List - Problems (1) Abdominal pain Code(s): R10.9 - UNSPECIFIED ABDOMINAL PAIN (2) Colitis Code(s): K52.9 - NONINFECTIVE GASTROENTERITIS AND COLITIS, UNSPECIFIED
[2017-05-18 15:19] VITALS: BP 140/69; PULSE 74; TEMP 98.3
--- NOTE | 2017-05-18 16:36 | PN ---
Progress Note, Physician History of Present Illness: Asymptomatic. No events. Tolerating full liquids and fruits brought by pt's son. Demanding to go home. - Current Medication List Current Medications: Active Medications Acetaminophen (Tylenol -) 650 mg PO Q6H PRN PRN Reason: FEVER Last Admin: 05/18/17 12:12 Dose: 650 mg Amlodipine Besylate (Norvasc -) 10 mg PO DAILY [facility] Last Admin: 05/18/17 10:39 Dose: 10 mg Hydralazine HCl (Apresoline -) 25 mg PO TID [facility] Last Admin: 05/18/17 14:10 Dose: 25 mg Sodium Chloride (Normal Saline -) 1,000 mls @ 100 mls/hr IV ASDIR [facility] Last Admin: 05/17/17 16:53 Dose: 100 mls/hr Piperacillin Sod/Tazobactam (Sod 3.375 gm/ Dextrose) 50 mls @ 100 mls/hr IVPB Q8H-IV [facility] Last Admin: 05/18/17 10:39 Dose: 100 mls/hr Metronidazole (Flagyl 500mg Premixed Ivpb -) 500 mg in 100 mls @ 100 mls/hr IVPB Q8H-IV [facility] Last Admin: 05/18/17 10:39 Dose: 100 mls/hr Insulin Aspart (Novolog Vial Sliding Scale -) 1 vial SQ ACHS [facility] PRN Reason: Protocol Last Admin: 05/18/17 11:48 Dose: 2 units Metoprolol Succinate (Toprol Xl -) 50 mg PO BID [facility] Last Admin: 05/18/17 10:39 Dose: 50 mg Ondansetron HCl (Zofran Injection) 4 mg IVPUSH Q8H PRN PRN Reason: NAUSEA AND/OR VOMITING Last Admin: 05/16/17 06:12 Dose: 4 mg Oxycodone HCl (Roxicodone -) 5 mg PO Q6H PRN PRN Reason: PAIN Last Admin: 05/18/17 12:11 Dose: 5 mg Pantoprazole Sodium (Protonix Iv) 40 mg IVPUSH DAILY [facility] Last Admin: 05/18/17 10:36 Dose: 40 mg Tiotropium [place] (Spiriva -) 1 puff IH DAILY [facility] Last Admin: 05/18/17 10:34 Dose: 1 inh - Objective Vital Signs: Vital Signs Temperature 98.3 F 05/18/17 15:18 Pulse Rate 74 05/18/17 15:18 Respiratory Rate 18 05/18/17 15:18 Blood Pressure 140/69 05/18/17 15:18 O2 Sat by Pulse Oximetry (%) 96 05/18/17 09:00 Constitutional: Yes: Well Nourished, No Distress Eyes: Yes: Conjunctiva Clear HENT: Yes: Atraumatic Neck: Yes: Supple Respiratory: Yes: Regular Gastrointestinal: Yes: Soft. No: Tenderness Neurological: Yes: Alert, Oriented Labs: CBC, BMP 05/17/17 10:21 05/17/17 10:21 INR, PTT INR 0.95 (0.82-1.09) 05/16/17 06:38 Laboratory Results - last 24 hr 05/17/17 05/17/17 05/18/17 16:51 21:15 06:48 POC Glucometer 177 188 178 05/18/17 11:07 POC Glucometer 207 CBCD WBC 12.9 K/mm3 (4.0-10.0) H 05/17/17 10:21 RBC 3.81 M/mm3 (3.60-5.2) 05/17/17 10:21 Hgb 11.3 GM/dL (10.7-15.3) 05/17/17 10:21 Hct 34.1 % (32.4-45.2) 05/17/17 10:21 MCV 89.5 fl (80-96) 05/17/17 10:21 MCHC 33.0 g/dl (32.0-36.0) 05/17/17 10:21 RDW 14.9 % (11.6-15.6) 05/17/17 10:21 Plt Count 317 K/MM3 (134-434) 05/17/17 10:21 MPV 7.7 fl (7.5-11.1) 05/17/17 10:21 CMP Sodium 144 mmol/L (136-145) 05/17/17 10:21 Potassium 3.4 mmol/L (3.5-5.1) L 05/17/17 10:21 Chloride 114 mmol/L (98-107) H 05/17/17 10:21 Carbon Dioxide 21 mmol/L (21-32) 05/17/17 10:21 Anion Gap 9 (8-16) 05/17/17 10:21 BUN 19 mg/dL (7-18) H 05/17/17 10:21 Creatinine 1.4 mg/dL (0.55-1.02) H 05/17/17 10:21 Creat Clearance w eGFR 39.19 (>60) 05/17/17 10:21 Calcium 7.2 mg/dL (8.5-10.1) L 05/17/17 10:21 Total Bilirubin 0.5 mg/dL (0.2-1.0) D 05/17/17 10:21 AST 44 U/L (15-37) H D 05/17/17 10:21 ALT 22 U/L (12-78) 05/17/17 10:21 Alkaline Phosphatase 176 U/L (45-117) H D 05/17/17 10:21 Total Protein 3.9 g/dl (6.4-8.2) L D 05/17/17 10:21 Albumin 1.4 g/dl (3.4-5.0) L D 05/17/17 10:21 Problem List - Problems (1) Hematochezia Code(s): K92.1 - MELENA (2) Colitis Code(s): K52.9 - NONINFECTIVE GASTROENTERITIS AND COLITIS, UNSPECIFIED Assessment/Plan Asymptomatic and demanding to go home. Tolerating fruits and full liquids. OK to d/c home with follow up in 1 week ED if symptoms come back. Adequate hydration and bland diet for the next few days and advance as pleating. Pt understands and and agrees
--- NOTE | 2017-05-18 16:36 | DS ---
Physical Examination Vital Signs: Vital Signs Temperature 98.3 F 05/18/17 15:18 Pulse Rate 74 05/18/17 15:18 Respiratory Rate 18 05/18/17 15:18 Blood Pressure 140/69 05/18/17 15:18 O2 Sat by Pulse Oximetry (%) 96 05/18/17 09:00 Findings/Remarks: TOLERATED FULL DIET TODAY NO NAUSEA AND VOMITING Constitutional: Yes: No Distress Eyes: Yes: WNL HENT: Yes: WNL Neck: Yes: WNL Cardiovascular: Yes: WNL Respiratory: Yes: WNL Gastrointestinal: Yes: WNL Musculoskeletal: Yes: Other Extremities: Yes: Amputation Edema: No Peripheral Pulses WNL: Yes Wound/Incision: Yes: Clean/Dry, Open to air Neurological: Yes: Pre-Existing Deficit ...Motor Strength: RLE (AMPUTATION) Psychiatric: Yes: Other Labs: CBC, BMP 05/17/17 10:21 05/17/17 10:21 Discharge Summary Reason For Visit: ABDOMINAL PAIN Current Active Problems Abdominal pain (Acute) Colitis (Acute) Diabetes (Acute) Hematochezia (Acute) Procedures: Principal: CT ABD Hospital Course: ADMITTED FOR ACUTE GASTROENTERITIS AND IPROVED ON IVF AND PAIN CONTROL, ADVANCING DIET SLOWLY Condition: Stable - Instructions Diet, Activity, Other Instructions: SEE DR JO 2-3 DAYS LOW FAT/ADA DIET Referrals: Herbert Jo [Primary Care Provider] - Disposition: HOME - Home Medications Comprehensive Discharge Medication List: Ambulatory Orders Aspirin [ASA -] 81 mg PO DAILY 05/04/15 Acetaminophen [Tylenol .Regular Strength -] 650 mg PO Q6H PRN #0 tablet Gabapentin [Neurontin -] 300 mg PO TID 09/08/16 Hydrochlorothiazide [Hctz -] 12.5 mg PO DAILY cap 09/08/16 Metoprolol Succinate [Toprol XL -] 50 mg PO DAILY 09/08/16 Multivitamins [Multivit ([facility] Formulary)] 1 tab PO DAILY tab 09/08/16 Cholecalciferol (Vitamin D3) [Vitamin D3] 2,000 unit PO DAILY 02/18/17 Famotidine [Pepcid] 20 mg PO BID 02/18/17 Insulin Glargine,Hum.rec.anlog [Basaglar Kwikpen U-100] 5 unit SQ DAILY Lipase/Protease/Amylase [Tommie Fonseca 6,000 Units Capsule] 1 cap PO TIDCM 02/18/17 Mirtazapine 30 mg PO DAILY 02/18/17 Simvastatin 20 mg PO HS 02/18/17 Sitagliptin Phosphate [Januvia] 50 mg PO DAILY 02/18/17 Tiotropium [place] [Spiriva] 2 inh IH DAILY 02/18/17 Nitrofurantoin Monohyd/M-Cryst [Macrobid -] 100 mg PO BID #14 capsule 02/19/17 Ondansetron [Zofran Odt -] 4 mg SL Q8H PRN #21 od.tablet 02/19/17 Oxycodone HCl/Acetaminophen [Percocet 5-325 mg Tablet] 1 tab PO Q6H PRN #12 tablet MDD 4 tab 02/19/17
--- NOTE | 2017-05-18 23:15 | EKG ---
Test Reason : Blood Pressure : / mmHG Vent. Rate : 087 BPM Atrial Rate : 087 BPM P-R Int : 130 ms QRS Dur : 080 ms QT Int : 370 ms P-R-T Axes : 058 009 020 degrees QTc Int : 445 ms NORMAL SINUS RHYTHM POSSIBLE LEFT ATRIAL ENLARGEMENT BORDERLINE ECG WHEN COMPARED WITH ECG OF 27-AUG-2016 20:40, NO SIGNIFICANT CHANGE WAS FOUND Confirmed by RM BOWLING MD ([id number]) on 05/18/2017 11:14:40 PM Referred By: Confirmed By:RM BOWLING MD
== END 2017-05-18 17:08 | disposition home or self-care (01) | DRG 282 ==
LOC: JER 05:59 → JERBED 12:48 → OBSVTOIN 14:46 → J6S 14:47
PROVIDERS: ADMIT Family Medicine; ATTEND Family Medicine
DX: K85.90 Acute pancreatitis without necrosis or infection, unspecified (principal); K52.9 Noninfective gastroenteritis and colitis, unspecified; K86.1 Other chronic pancreatitis; I16.0 Hypertensive urgency; E11.9 Type 2 diabetes mellitus without complications; Z79.4 Long term (current) use of insulin; K29.60 Other gastritis without bleeding; Z89.511 Acquired absence of right leg below knee; K92.1 Melena; J45.909 Unspecified asthma, uncomplicated; E78.5 Hyperlipidemia, unspecified; Z91.19 Patient's noncompliance with other medical treatment and regimen; E11.51 Type 2 diabetes mellitus with diabetic peripheral angiopathy without gangrene
CPT/HCPCS: 36415; 74176-TC; 76705-TC; 80048; 80053; 80061; 82009; 82150; 82977; 83036; 83690; 83721; 83735; 84702; 85025; 85610; 87040; 93005; 93010; 99284-25; G0378

== ENCOUNTER 2017-09-10 10:46 | Inpatient (IN) | payer OTHER ==
--- NOTE | 2017-09-10 11:17 | PDOC ---
History of Present Illness - General History Source: Patient Exam Limitations: No Limitations - History of Present Illness Initial Comments: 09/10/17 11:48 The patient is a 52 year old female, with a significant PMH of HTN, HLD, DM, who presents to the emergency department with left foot pain and swelling that began approximately 1 week ago. The patient reports the left foot pain is an 8/ 10 in severity. The patient was seen at [facility], was dissatisfied and decided to come to this ER instead. The patient denies chest pain, shortness of breath, headache and dizziness. Denies fever, chills, nausea, vomit, diarrhea and constipation. Denies dysuria, frequency, urgency and hematuria. Allergies: NKA Past surgical history: Right leg below the knee amputation Social history: No reported alcohol, drug, or cigarette use. PCP: Dr. Jo <Karen Dean - Last Filed: 09/10/17 12:01> <Vivi Su - Last Filed: 09/11/17 20:45> - General Chief Complaint: Wound Infection Stated Complaint: WOUND Time Seen by Provider: 09/10/17 11:05 Past History <Karen Dean - Last Filed: 09/10/17 12:01> - Past Medical History Anemia: No Asthma: Yes Cancer: No Cardiac Disorders: No CVA: No COPD: No DVT: No Dementia: No Diabetes: Yes Dialysis: No GI Disorders: No Disorders: No HTN: Yes Hypercholesterolemia: Yes Kidney Stones: No Liver Disease: No Psychiatric Problems: No Seizures: No Thyroid Disease: No Lung CA: No - Surgical History Abdominal Surgery: No Appendectomy: No Cardiac Surgery: No Cholecystectomy: No Gastric Stapling: No GI Surgery: No Lung Surgery: No Neurologic Surgery: No - Suicide/Smoking/Psychosocial Hx Smoking Status: Yes Smoking History: Former smoker Have you smoked in the past 12 months: No Number of Cigarettes Smoked Daily: 10 Information on smoking cessation initiated: No Hx Alcohol Use: No Drug/Substance Use Hx: No Substance Use Type: None <Vivi Su - Last Filed: 09/11/17 20:45> - Past Medical History Allergies/Adverse Reactions: Allergies Allergy/AdvReac Type Severity Reaction Status Date / Time No Known Allergies Allergy Verified 09/10/17 10:47 Home Medications: Ambulatory Orders Aspirin [ASA -] 81 mg PO DAILY 05/04/15 Acetaminophen [Tylenol .Regular Strength -] 650 mg PO Q6H PRN #0 tablet Gabapentin [Neurontin -] 300 mg PO TID 09/08/16 Hydrochlorothiazide [Hctz -] 12.5 mg PO DAILY cap 09/08/16 Amlodipine Besylate [Norvasc -] 10 mg PO DAILY 09/10/17 Clopidogrel Bisulfate [Plavix -] 75 mg PO DAILY 09/10/17 Diphenhydramine HCl [Benadryl -] 25 mg PO Q8H 09/10/17 Furosemide [Lasix -] 20 mg PO DAILY 09/10/17 Insulin (Novolog) [Novolog Flexpen] 12 units SQ TID 09/10/17 Paroxetine HCl [Paxil -] 10 mg PO DAILY 09/10/17 Quetiapine Fumarate [Seroquel -] 200 mg PO BID 09/10/17 cloNIDine HCL [Catapres -] 0.1 mg PO BID 09/10/17 Review of Systems - Review of Systems Able to Perform ROS?: Yes Comments:: 09/10/17 12:01 GENERAL/CONSTITUTIONAL: No fever or chills. No weakness. HEAD, EYES, EARS, NOSE AND THROAT: No change in vision. No ear pain or discharge. No sore throat. CARDIOVASCULAR: No chest pain or shortness of breath. RESPIRATORY: No cough, wheezing, or hemoptysis. GASTROINTESTINAL: No nausea, vomiting, diarrhea or constipation. GENITOURINARY: No dysuria, frequency, or change in urination. MUSCULOSKELETAL: (+) Left foot pain and swelling. No neck or back pain. SKIN: No rash NEUROLOGIC: No headache, vertigo, loss of consciousness, or change in strength/ sensation. ENDOCRINE: No increased thirst. No abnormal weight change. HEMATOLOGIC/LYMPHATIC: No anemia, easy bleeding, or history of blood clots. ALLERGIC/IMMUNOLOGIC: No hives or skin allergy. <Karen Dean - Last Filed: 09/10/17 12:01> *Physical Exam - Vital Signs Last Vital Signs Temp Pulse Resp BP Pulse Ox 97.5 F L 75 17 151/85 99 09/10/17 10:48 09/10/17 10:48 09/10/17 10:48 09/10/17 10:48 09/10/17 10:48 <Karen Dean - Last Filed: 09/10/17 12:01> - Vital Signs Last Vital Signs Temp Pulse Resp BP Pulse Ox 97.5 F L 75 17 151/85 99 09/10/17 10:48 09/10/17 10:48 09/10/17 10:48 09/10/17 10:48 09/10/17 10:48 <Vivi Su - Last Filed: 09/11/17 20:45> Heart Score/ECG Review - History History: Slightly suspicious - Electrocardiogram EKG: Normal - Age Age: 45-65 - Risk Factors Risk Factors Heart Score: Yes Hx Hypercholesterolemia, Yes Hx Hypertension, Yes Hx Diabetes, Yes Smoking History Based on the list above the patient has:: >/=3 risk factors or Hx atherosclerotic disease - Troponin Troponin: </= normal limit - Score Heart Score - Total: 3 - ECG Impressions Comment:: EKG read 18:15- NSR 80 bpm, no acute ST/T changes <Vivi Su - Last Filed: 09/11/17 20:45> ED Treatment Course - LABORATORY CBC & Chemistry Diagram: 09/11/17 06:15 09/11/17 06:15 <Vivi Su - Last Filed: 09/11/17 20:45> Medical Decision Making - Medical Decision Making 09/10/17 14:30 Case d/w Dr. Yousuf Pimentel, patient was seen by Dr. Sifuentes at [place] and advised her she needed an amputation. She eloped and came to this hospital after that, requesting to see Dr. Manzo. Dr. Manzo is being covered by [employer]. I will discuss with him. 09/10/17 16:33 Case d/w Dr. Sifuentes via phone, he rounded on patient this morning at [place], recommended a BKA, at which point she left AMA to come to [facility]. He explained to her that he is product marketing consultant here as well and the management would be the same. I explained this to the patient and her family. Dr. Manzo will return from vacation in 4 days, she can make appointment to see him. As the gangrene is dry and there is no surrounding infection, there is no indication for emergent surgery. 09/10/17 17:56 Late entry. D/w case management and nurse buffet manager. As patient was speaking with telephonic case manager, started to complain of chest pain. Will add on cardiac enzymes. <Vivi Su - Last Filed: 09/11/17 20:45> *DC/Admit/Observation/Transfer <Karen Dean - Last Filed: 09/10/17 12:01> - Discharge Dispostion Admit: Yes <Vivi Su - Last Filed: 09/11/17 20:45> Diagnosis at time of Disposition: Gangrene associated with diabetes mellitus Chest pain Qualifiers: Chest pain type: unspecified Qualified Code(s): R07.9 - Chest pain, unspecified - Discharge Dispostion Condition at time of disposition: Stable
[2017-09-10 13:35] LABS: EOS % 2.4 % (0-4.5); HEMATOCRIT 30.9 % (32.4-45.2); HEMOGLOBIN 10.3 GM/dL (10.7-15.3); LYMPH % 18.9 % (8-40); MCH 29.8 pg (25.7-33.7); MCHC 33.4 g/dl (32.0-36.0); MEAN CELL VOLUME 89.3 fl (80-96); MEAN PLT VOLUME 7.5 fl (7.5-11.1); MONO % 7.6 % (3.8-10.2); NEUT % 70.1 % (42.8-82.8); PLATELET COUNT 434 K/MM3 (134-434); RBC 3.46 M/mm3 (3.60-5.2); RDW 14.3 % (11.6-15.6)
[2017-09-10 14:01] LABS: ALBUMIN 1.2 g/dl (3.4-5.0); ANION GAP 9 (8-16); BILIRUBIN,TOTAL 0.1 mg/dL (0.2-1.0); BLOOD UREA NITROGEN 21 mg/dL (7-18); CALCIUM 7.4 mg/dL (8.5-10.1); CHLORIDE 108 mmol/L (98-107); CO2 24 mmol/L (21-32); CREATININE 1.5 mg/dL (0.55-1.02); GLUCOSE,RANDOM 224 mg/dL (74-106); POTASSIUM 4.5 mmol/L (3.5-5.1); SGOT/AST 23 U/L (15-37); SGPT/ALT 20 U/L (12-78); SODIUM 141 mmol/L (136-145); TOT PROT 3.8 g/dl (6.4-8.2)
[2017-09-10 14:02] LABS: ALK PHOS 339 U/L (45-117)
[2017-09-10 14:04] LABS: INR 0.97 (0.82-1.09)
[2017-09-10] MEDS ORDERED: POLYETHYLENE GLYCOL 3350 119 GM BTL PO ONE (17:45)
--- NOTE | 2017-09-10 20:46 | HP ---
CHIEF COMPLAINT: L foot pain, edema PCP: Dr. Pimentel HISTORY OF PRESENT ILLNESS: 52 y/o F with PMH HTN, s/p R BKA (2017; Dr. Manzo), HTN, HLD, DM, PAD, anxiety disorder, who presents to the ED c/o L foot pain over the past week. As per pt, a week ago, she suddenly developed 10/10, sharp pain and a "pressure like sensation" in her LLE, specifically her L foot. Pt states that the pain was a/w edema and erythema, and is worsened with weight-bearing. For this reason, pt went to [facility], however was recommended L BKA by Dr. Sifuentes. She left AMA, and came to [facility] for another opinion. Pt is requesting tx from Dr. Manzo, since he performed her R BKA - at this time, surgical intervention is not needed emergently. Pt states that ever since her recent trip to [place] two days ago, she has had diffuse chest pain a/w SOB, that came about when she discussed the BKA. She believes it is related to anxiety. During this time, pt also endorses diaphoresis and nausea with intermittent emesis. Denies DIAMOND, fever , chills, or changes in urinary or bowel function. ER course was notable for: (1) initial trop (-) <0.02 (2) EKG - without ST-T changes; NSR 80bpm (3) Recent Travel: none PAST MEDICAL HISTORY: as above PAST SURGICAL HISTORY: s/p R BKA (2017; Dr. 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 Smoking: does not smoke currently. had smoked 1 ppd for 5 yrs previously Alcohol: quit twenty years ago; social drinker Drugs: denies Family History: mother, sister, brother - DM. father- pancreatic CA Allergies No Known Allergies Allergy (Verified 09/10/17 10:47) HOME MEDICATIONS: Home Medications Medication Instructions Recorded Aspirin [ASA -] 81 mg PO DAILY 05/04/15 Acetaminophen [Tylenol .Regular 650 mg PO Q6H PRN #0 tablet 09/08/16 Strength -] Gabapentin [Neurontin -] 300 mg PO TID 09/08/16 Hydrochlorothiazide [Hctz -] 12.5 mg PO DAILY cap 09/08/16 Amlodipine Besylate [Norvasc -] 10 mg PO DAILY 09/10/17 Clopidogrel Bisulfate [Plavix -] 75 mg PO DAILY 09/10/17 Diphenhydramine HCl [Benadryl -] 25 mg PO Q8H 09/10/17 Furosemide [Lasix -] 20 mg PO DAILY 09/10/17 Insulin (Novolog) [Novolog Flexpen] 12 units SQ TID 09/10/17 Paroxetine HCl [Paxil -] 10 mg PO DAILY 09/10/17 Quetiapine Fumarate [Seroquel -] 200 mg PO BID 09/10/17 cloNIDine HCL [Catapres -] 0.1 mg PO BID 09/10/17 REVIEW OF SYSTEMS CONSTITUTIONAL: +diaphoresis Absent: fever, chills, generalized weakness, malaise, loss of appetite, weight change HEENT: Absent: rhinorrhea, nasal congestion, throat pain, throat swelling, difficulty swallowing, mouth swelling, ear pain, eye pain, visual changes CARDIOVASCULAR: Absent: chest pain, syncope, palpitations, irregular heart rate, lightheadedness , peripheral edema RESPIRATORY: Absent: cough, shortness of breath, dyspnea with exertion, orthopnea, wheezing, stridor, hemoptysis GASTROINTESTINAL: +nausea Absent: abdominal pain, abdominal distension, vomiting, diarrhea, constipation, melena, hematochezia GENITOURINARY: Absent: dysuria, frequency, urgency, hesitancy, hematuria, flank pain, genital pain MUSCULOSKELETAL: +L foot pain Absent: myalgia, arthralgia, joint swelling, back pain, neck pain SKIN: Absent: rash, itching, pallor HEMATOLOGIC/IMMUNOLOGIC: Absent: easy bleeding, easy bruising, lymphadenopathy, frequent infections ENDOCRINE: Absent: unexplained weight gain, unexplained weight loss, heat intolerance, cold intolerance NEUROLOGIC: Absent: headache, focal weakness or paresthesias, dizziness, unsteady gait, seizure, mental status changes, bladder or bowel incontinence PSYCHIATRIC: Absent: anxiety, depression, suicidal or homicidal ideation, hallucinations. PHYSICAL EXAMINATION Vital Signs - 24 hr 09/10/17 09/10/17 10:48 16:50 Temperature 97.5 F L Pulse Rate 75 Pulse Rate [ 75 Radial] Respiratory 17 16 Rate Blood Pressure 151/85 Blood Pressure 158/87 [Left Arm] O2 Sat by Pulse 99 98 Oximetry (%) GENERAL: Resting comfortably. Awake, alert, and fully oriented, in no acute distress. Mildly anxious HEAD: Normal with no signs of trauma. EYES: Pupils equal, round and reactive to light, extraocular movements intact, sclera anicteric, conjunctiva clear. EARS, NOSE, THROAT: Ears normal, nares patent, oropharynx clear without exudates. Moist mucous membranes. NECK: Normal range of motion, supple LUNGS: Breath sounds equal, clear to auscultation bilaterally. No wheezes, and no crackles. No accessory muscle use. HEART: Regular rate and rhythm, normal S1 and S2 without murmur, rub or gallop. ABDOMEN: Soft, nontender, not distended, normoactive bowel sounds, no guarding, no rebound, no masses. MUSCULOSKELETAL: Normal range of motion-LLE. R- BKA LOWER EXTREMITIES: LLE: without palpable dorsalis pedis or posterior tibial pulse, +dry gangrene 3rd toe, +TTP. R - BKA NEUROLOGICAL: Cranial nerves II-XII intact. PSYCHIATRIC: Cooperative. Anxious Laboratory Results 09/10/17 09/10/17 09/10/17 13:25 13:25 13:25 WBC 9.0 D RBC 3.46 L Hgb 10.3 L Hct 30.9 L MCV 89.3 MCH 29.8 MCHC 33.4 RDW 14.3 Plt Count 434 D MPV 7.5 Neutrophils % 70.1 Lymphocytes % 18.9 Monocytes % 7.6 Eosinophils % 2.4 Basophils % 1.0 PT with INR 11.00 INR 0.97 Sodium 141 Potassium 4.5 Chloride 108 H Carbon Dioxide 24 Anion Gap 9 BUN 21 H Creatinine 1.5 H Creat Clearance w eGFR 36.19 Random Glucose 224 H Calcium 7.4 L Total Bilirubin 0.1 L D AST 23 ALT 20 Alkaline Phosphatase 339 H Creatine Kinase Troponin I Total Protein 3.8 L Albumin 1.2 L Blood Type Antibody Screen 09/10/17 09/10/17 13:25 18:15 AST Alkaline Phosphatase Creatine Kinase 127 Troponin I < 0.02 Total Protein Albumin Blood Type O POSITIVE Antibody Screen Negative TESTS CXR: mild congestion noted, however without effusions or infiltrates. EKG: NSR, 80bpm. No st-t wave changes. Qtc 433ms IMAGING Duplex LLE: mild calc atheromatous plaques along L DIRECTOR VOICE, moderate plaques SFA, L popliteal a and posterior tibial a- with inflow stenosis ASSESSMENT/PLAN: 52 y/o F with PMH HTN, s/p R BKA (2017; Dr. Manzo), HTN, HLD, DM, PAD, anxiety disorder, who presents to the ED c/o L foot pain over the past week. Pt admitted to tele-obs for r/o ACS and L third toe gangrene. #R/o ACS -EKG NSR without ST-T wave changes -Initial trop (-) -Continue to follow trops q6h - next one at midnight -Telemetry monitoring #L third toe gangrene -Pt without palpable pulses in posterior tibial, dorsalis pedis LLE -Duplex LLE: mild calc atheromatous plaques along L [employer] VOICE, moderate plaques SFA, L popliteal a and posterior tibial a- with inflow stenosis -no need for abx at this time, as pt is not septic - afebrile, without white count -Evaluated by Dr. Sifuentes at [place]- recommended L BKA, without need for emergent surgery currently -Recommend outpatient f/u with Dr. Manzo later this week -Pain control- Tylenol 650 mg PO q4h PRN #PAD -Continue aspirin 81mg PO qd -Clopidogrel 75mg PO qd -Gabapentin 300mg PO TID #Normocytic anemia -Likely chronic -Continue to monitor for changes in H&H -F/u as outpatient #DM -BGM -ISS ACHS #HTN- uncontrolled -likely 2/2 pain -Continue amlodipine 10mg PO qd, clonidine 0.1mg PO BID -HCTZ 12.5mg PO qd #Anxiety disorder -Continue Paxil 10mg PO qd #F/E/N -No need for IVF at this time -Monitor electrolytes -HTN, diabetic diet #PPX DVT: Hep 5000 SQ BID #Dispo Continued monitoring - tele obs note pt follows at [facility]. Currently closed - in AM, please follow up on med rec thank you Visit type - Emergency Visit Emergency Visit: Yes ED Registration Date: 09/10/17 Care time: The patient presented to the Emergency Department on the above date and was hospitalized for further evaluation of their emergent condition. - New Patient This patient is new to me today: Yes Date on this admission: 09/11/17 - Critical Care Critical Care patient: No Hospitalist Screening - Colonoscopy Questionnaire Colonoscopy Questionnaire: Colonoscopy Questionnaire - Patient: 50 - 75 years old and never had a screening colonoscopy: Unknown History of colon or rectal polyps, or CA: Unknown History of IBD, Crohn's disease or UC: Unknown History of abdominal radiation therapy as a child: Unknown - Relative: 1 with colon or rectal CA, or polyps at age 60 or younger: Unknown Colon or rectal CA diagnosed at age 45 or younger: Unknown Multiple relatives with colon or rectal CA: Unknown - Outcome: Screening Result: Negative Screen
[2017-09-10] MEDS: ACETAMINOPHEN 325 MG TABLET (FP) PO PRN (21:30)
--- NOTE | 2017-09-10 21:36 | PN ---
Teaching Attending Note Name of Resident: Monserrat Lopez ATTENDING PHYSICIAN STATEMENT I saw and evaluated the patient. I reviewed the resident's note and discussed the case with the resident. I agree with the resident's findings and plan as documented. SUBJECTIVE: This is a 52 year old woman with a history of HTN, PAD, right BKA, hyperlipidemia, type 2 DM, anxiety who comes to the ED complaining of left foot pain, swelling and redness x 1 week. She was admitted to [facility] but left AMA when BKA was recommended by Dr. Sifuentes because she wanted an opinion from Dr. Manzo who had performed her right BKA. She reports having chest pain with SOB, nausea and diaphoresis since being told she needed a BKA while at [place]. 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, (+) gangrene of left 3rd toe, left DP pulse not palpable Laboratory Tests 09/10/17 09/10/17 09/10/17 13:25 13:25 13:25 WBC 9.0 D RBC 3.46 L Hgb 10.3 L Hct 30.9 L MCV 89.3 MCH 29.8 MCHC 33.4 RDW 14.3 Plt Count 434 D MPV 7.5 Neutrophils % 70.1 Lymphocytes % 18.9 Monocytes % 7.6 Eosinophils % 2.4 Basophils % 1.0 PT with INR 11.00 INR 0.97 Sodium 141 Potassium 4.5 Chloride 108 H Carbon Dioxide 24 Anion Gap 9 BUN 21 H Creatinine 1.5 H Creat Clearance w eGFR 36.19 Random Glucose 224 H Calcium 7.4 L Total Bilirubin 0.1 L D AST 23 ALT 20 Alkaline Phosphatase 339 H Creatine Kinase Troponin I Total Protein 3.8 L Albumin 1.2 L Blood Type Antibody Screen 09/10/17 09/10/17 13:25 18:15 WBC RBC Hgb Hct MCV MCH MCHC RDW Plt Count MPV Neutrophils % Lymphocytes % Monocytes % Eosinophils % Basophils % PT with INR INR Sodium Potassium Chloride Carbon Dioxide Anion Gap BUN Creatinine Creat Clearance w eGFR Random Glucose Calcium Total Bilirubin AST ALT Alkaline Phosphatase Creatine Kinase 127 Troponin I < 0.02 Total Protein Albumin Blood Type O POSITIVE Antibody Screen Negative Home Medications Medication Instructions Recorded Aspirin [ASA -] 81 mg PO DAILY 05/04/15 Acetaminophen [Tylenol .Regular 650 mg PO Q6H PRN #0 tablet 09/08/16 Strength -] Gabapentin [Neurontin -] 300 mg PO TID 09/08/16 Hydrochlorothiazide [Hctz -] 12.5 mg PO DAILY cap 09/08/16 Amlodipine Besylate [Norvasc -] 10 mg PO DAILY 09/10/17 Clopidogrel Bisulfate [Plavix -] 75 mg PO DAILY 09/10/17 Diphenhydramine HCl [Benadryl -] 25 mg PO Q8H 09/10/17 Furosemide [Lasix -] 20 mg PO DAILY 09/10/17 Insulin (Novolog) [Novolog Flexpen] 12 units SQ TID 09/10/17 Paroxetine HCl [Paxil -] 10 mg PO DAILY 09/10/17 Quetiapine Fumarate [Seroquel -] 200 mg PO BID 09/10/17 cloNIDine HCL [Catapres -] 0.1 mg PO BID 09/10/17 ASSESSMENT AND PLAN: This is a 52 year old woman with a history of HTN, PAD, right BKA, hyperlipidemia, type 2 DM, anxiety who presented to the ED today with left foot pain, swelling and redness x 1 week, and chest pain associated with SOB, nausea and diaphoresis. 1. Chest pain - Likely secondary to anxiety but she has multiple risks for CAD - Observe on telemetry - Serial troponins - Continue aspirin (also on Plavix for PAD) 2. 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 HTN - Continue Norvasc, Clonidine, HCTZ, Lasix 4. Hyperlipidemia 5. Type 2 DM - Fingersticks with Novolog sliding scale 6. Anxiety - Continue Paxil 7. Stage 3 CKD - Creatinine is 1.5 (last available was 1.4 04/2017) - Monitor creatinine 8. Anemia, likely secondary to chronic illness - Monitor hemoglobin
[2017-09-10] MEDS: INSULIN SLIDING SCALE (NOVOLOG) 1 VIAL SQ SCH (22:25)
[2017-09-10] MEDS: HEPARIN NA (PORCINE) 5,000 UNITS/ML 1ML VIAL SQ SCH (22:29)
[2017-09-11] MEDS ORDERED: ACETAMINOPHEN 325 MG TABLET (FP) PO ONE (01:45)
[2017-09-11] MEDS ORDERED: oxyCODONE HCL 5 MG TABLET PO ONE ×2 (01:45→20:45)
[2017-09-11 05:53] VITALS: BMI 29.2
[2017-09-11 06:38] LABS: BASO % 0.8 % (0-2.0); EOS % 3.3 % (0-4.5); HEMATOCRIT 32.7 % (32.4-45.2); LYMPH % 29.9 % (8-40); MCH 30.1 pg (25.7-33.7); MCHC 33.6 g/dl (32.0-36.0); MEAN CELL VOLUME 89.6 fl (80-96); MEAN PLT VOLUME 8.5 fl (7.5-11.1); PLATELET COUNT 458 K/MM3 (134-434); RBC 3.65 M/mm3 (3.60-5.2); RDW 14.3 % (11.6-15.6); WHITE BLOOD COUNT 6.7 K/mm3 (4.0-10.0)
[2017-09-11] MEDS: INSULIN SLIDING SCALE (NOVOLOG) 1 VIAL SQ SCH ×4 (06:39→21:26)
[2017-09-11 07:11] LABS: ANION GAP 9 (8-16); BLOOD UREA NITROGEN 16 mg/dL (7-18); CALCIUM 7.5 mg/dL (8.5-10.1); CHLORIDE 111 mmol/L (98-107); CO2 22 mmol/L (21-32); CREATININE 1.2 mg/dL (0.55-1.02); GLUCOSE,RANDOM 157 mg/dL (74-106); PHOSPHOROUS 3.7 mg/dL (2.5-4.9); POTASSIUM 4.1 mmol/L (3.5-5.1); SODIUM 142 mmol/L (136-145)
--- NOTE | 2017-09-11 08:26 | PN ---
Progress Note, Physician History of Present Illness: 52 y/o F with PMH HTN, s/p R BKA (2017; Dr. Manzo), HTN, HLD, DM, PAD, anxiety disorder, who presents to the ED c/o L foot pain over the past week. As per pt, a week ago, she suddenly developed 10/10, sharp pain and a "pressure like sensation" in her LLE, specifically her L foot. Pt states that the pain was a/w edema and erythema, and is worsened with weight-bearing. For this reason, pt went to [facility], however was recommended L BKA by Dr. Sifuentes. She left AMA, and came to [facility] for another opinion. Pt is requesting tx from Dr. Manzo, since he performed her R BKA - at this time, surgical intervention is not needed emergently. Pt states that ever since her recent trip to [place] two days ago, she has had diffuse chest pain a/w SOB, that came about when she discussed the BKA. She believes it is related to anxiety. During this time, pt also endorses diaphoresis and nausea with intermittent emesis. Denies DIAMOND, fever , chills, or changes in urinary or bowel function. - Current Medication List Current Medications: Active Medications Acetaminophen (Tylenol -) 650 mg PO Q4H PRN PRN Reason: MODERATE PAIN Last Admin: 09/10/17 21:30 Dose: 650 mg Amlodipine Besylate (Norvasc -) 10 mg PO DAILY [facility] Aspirin (Asa -) 81 mg PO DAILY [facility] Clonidine (Catapres -) 0.1 mg PO BID [facility] Clopidogrel Bisulfate (Plavix -) 75 mg PO DAILY [facility] Furosemide (Lasix -) 20 mg PO DAILY [facility] Gabapentin (Neurontin -) 300 mg PO TID [facility] Heparin Sodium (Porcine) (Heparin -) 5,000 unit SQ BID [facility] Last Admin: 09/10/17 22:29 Dose: 5,000 unit Hydrochlorothiazide (Hctz -) 12.5 mg PO DAILY [facility] Insulin Aspart (Novolog Vial Sliding Scale -) 1 vial SQ ACHS [facility] PRN Reason: Protocol Last Admin: 09/11/17 06:39 Dose: 2 units Paroxetine HCl (Paxil -) 10 mg PO DAILY [facility] - Objective Vital Signs: Vital Signs Temperature 98 F 09/11/17 08:25 Pulse Rate 78 09/11/17 08:25 Respiratory Rate 16 09/11/17 08:25 Blood Pressure 155/78 09/11/17 08:25 O2 Sat by Pulse Oximetry (%) 96 09/10/17 22:00 Cardiovascular: Yes: S1, S2 Respiratory: Yes: Regular, CTA Bilaterally Gastrointestinal: Yes: Normal Bowel Sounds, Soft. No: Tenderness Extremities: Yes: Amputation (bka), Other (gangrene of 3 rd toe) Labs: CBC, BMP 09/11/17 06:15 09/11/17 06:15 INR, PTT INR 0.97 (0.82-1.09) 09/10/17 13:25 Assessment/Plan #R/o ACS -EKG NSR without ST-T wave changes -Initial trop (-) -Continue to follow trops -Telemetry monitoring #L third toe gangrene -Pt without palpable pulses in posterior tibial, dorsalis pedis LLE -Duplex LLE: mild calc atheromatous plaques along L [employer]ACK[employer]RIER, moderate plaques SFA, L popliteal a and posterior tibial a- with inflow stenosis -no need for abx at this time, as pt is not septic - afebrile, without white count -Evaluated by Dr. Sifuentes at [place]- recommended L BKA, without need for emergent surgery currently -consult Dr. Manzo -Pain control- Tylenol 650 mg PO q4h PRN #PAD -Continue aspirin 81mg PO qd -Clopidogrel 75mg PO qd -Gabapentin 300mg PO TID #Normocytic anemia -Likely chronic -Continue to monitor for changes in H&H -F/u as outpatient #DM -BGM -ISS ACHS #HTN- uncontrolled -likely 2/2 pain -Continue amlodipine 10mg PO qd, clonidine 0.1mg PO BID -HCTZ 12.5mg PO qd #Anxiety disorder -Continue Paxil 10mg PO qd #F/E/N -No need for IVF at this time -Monitor electrolytes -HTN, diabetic diet #PPX DVT: Hep 5000 SQ BID
[2017-09-11] MEDS ORDERED: PT OWN MED DRAWER 7, Y5N ONE (09:47)
--- NOTE | 2017-09-11 09:54 | EKG ---
Test Reason : Blood Pressure : / mmHG Vent. Rate : 080 BPM Atrial Rate : 080 BPM P-R Int : 114 ms QRS Dur : 084 ms QT Int : 376 ms P-R-T Axes : 045 -05 052 degrees QTc Int : 433 ms NORMAL SINUS RHYTHM NORMAL ECG Confirmed by DELMI ANDRADE MD ([id number]) on 09/11/2017 9:54:31 AM Referred By: Confirmed By:DELMI ANDRADE MD
[2017-09-11] MEDS: amLODIPine BESYLATE 10 MG TABLET (FP) PO SCH (09:56)
[2017-09-11] MEDS: PARoxetine HCL 10 MG TABLET (FP) PO SCH (09:56)
[2017-09-11] MEDS: CLOPIDOGREL BISULFATE 75 MG TABLET (FP) PO SCH (09:57)
[2017-09-11] MEDS: HEPARIN NA (PORCINE) 5,000 UNITS/ML 1ML VIAL SQ SCH ×2 (09:57→21:25)
[2017-09-11] MEDS: HYDROCHLOROTHIAZIDE 12.5 MG CAPSULE (FP) PO SCH (09:57)
[2017-09-11] MEDS: FUROSEMIDE 20 MG TABLET (FP) PO SCH (09:57)
[2017-09-11] MEDS: ASPIRIN 81 MG CHEWABLE TABLETS PO SCH (09:57)
[2017-09-11] MEDS: ACETAMINOPHEN 325 MG TABLET (FP) PO PRN ×2 (12:05→17:10)
[2017-09-11] MEDS ORDERED: INSULIN (NOVOLOG) ASPART 100 UNITS/ML 10ML VIAL ONE ×3 (12:15→21:13)
--- NOTE | 2017-09-11 14:17 | CON.CARD ---
Consult Consult Specialty:: Cardiology Reason for Consultation:: Chest pain - History of Present Illness History of Present Illness: 52 y/o F HTN, PVD s/p R BKA DM, anxiety disorder, c/o L foot pain over the past week. The patient reports intermittent sharp chest pain lasting a few seconds worse after hearing she may need surgery for her foot. THere has been CP on and off which is long standing. The pain is also reproducible on palpation. - History Source History Provided By: Patient, Medical Record Limitations to Obtaining History: No Limitations - Past Medical History Cardio/Vascular: Yes: HTN, Other (PAD) Pulmonary: Yes: Asthma Gastrointestinal: Yes: Pancreatitis Hepatobiliary: Yes: Other (ALCOHOLISM STOPPED ONE YEAR AGO) Renal/: Yes: Other (PYLEONEPHRITIS RECENTLY AT [facility]) ...: No Endocrine: Yes: Diabetes Mellitus - Past Surgical History Past Surgical History: Yes: Cholecystectomy - Alcohol/Substance Use Hx Alcohol Use: No - Smoking History Smoking history: Current some day smoker Have you smoked in the past 12 months: No Aproximately how many cigarettes per day: 10 Home Medications - Allergies Allergies/Adverse Reactions: Allergies Allergy/AdvReac Type Severity Reaction Status Date / Time No Known Allergies Allergy Verified 09/10/17 10:47 - Home Medications Home Medications: Ambulatory Orders Aspirin [ASA -] 81 mg PO DAILY 05/04/15 Acetaminophen [Tylenol .Regular Strength -] 650 mg PO Q6H PRN #0 tablet Gabapentin [Neurontin -] 300 mg PO TID 09/08/16 Hydrochlorothiazide [Hctz -] 12.5 mg PO DAILY cap 09/08/16 Amlodipine Besylate [Norvasc -] 10 mg PO DAILY 09/10/17 Clopidogrel Bisulfate [Plavix -] 75 mg PO DAILY 09/10/17 Diphenhydramine HCl [Benadryl -] 25 mg PO Q8H 09/10/17 Furosemide [Lasix -] 20 mg PO DAILY 09/10/17 Insulin (Novolog) [Novolog Flexpen] 12 units SQ TID 09/10/17 Paroxetine HCl [Paxil -] 10 mg PO DAILY 09/10/17 Quetiapine Fumarate [Seroquel -] 200 mg PO BID 09/10/17 cloNIDine HCL [Catapres -] 0.1 mg PO BID 09/10/17 Review of Systems - Review of Systems Constitutional: denies: Chills, Diaphoresis, Fever HENT: reports: No Symptoms Neck: reports: No Symptoms Cardiovascular: denies: Palpitations, Shortness of Breath Respiratory: denies: Cough, Orthopnea, PND Gastrointestinal: denies: Abdominal Pain Musculoskeletal: denies: Back Pain Integumentary: reports: No Symptoms Neurological: reports: No Symptoms Endocrine: reports: No Symptoms Vital Signs: Vital Signs Temperature 98 F 09/11/17 08:25 Pulse Rate 78 09/11/17 08:25 Respiratory Rate 16 09/11/17 08:25 Blood Pressure 155/78 09/11/17 08:25 O2 Sat by Pulse Oximetry (%) 98 09/11/17 08:00 Constitutional: Yes: Well Nourished, No Distress, Anxious Eyes: Yes: Conjunctiva Clear, EOM Intact HENT: Yes: Atraumatic, Normocephalic Neck: Yes: Supple, Trachea Midline Respiratory: Yes: Regular, CTA Bilaterally Gastrointestinal: Yes: Normal Bowel Sounds, Soft Cardiovascular: Yes: Regular Rate and Rhythm JVD: No Carotid Bruit: No PMI: Non-Displaced Heart Sounds: Yes: S1, S2 Murmur: No: Systolic Murmur, Diastolic Murmur Edema: No - Other Data Labs, Other Data: CBC, BMP 09/11/17 06:15 09/11/17 06:15 INR, PTT INR 0.97 (0.82-1.09) 09/10/17 13:25 Troponin, BNP 09/10/17 09/11/17 09/11/17 18:15 01:10 06:15 Troponin I < 0.02 < 0.02 < 0.02 Troponin, BNP 09/10/17 09/11/17 09/11/17 18:15 01:10 06:15 Troponin I < 0.02 < 0.02 < 0.02 NSR no STT changes. Echo: Report Reviewed (Mild to moderate lateral wall hypokinesis. EF 50%) Imaging - Results Chest X-ray: Report Reviewed Problem List - Problems (1) Chest pain Code(s): R07.9 - CHEST PAIN, UNSPECIFIED Qualifiers: Chest pain type: unspecified Qualified Code(s): R07.9 - Chest pain, unspecified Assessment/Plan 52 F with DM and PVD with atypical CP. Hypertensive. CP is reproducible and transient. Atypical for CAD. There is segmental LV wall motion. * Medical management is advised. * High intensity statin. Consider Lipitor 80mg qd. * BP control. Adjust BP meds for a goal BP <140/80 * Add beta farshad. Metoprolol 50mg bid. * Continue ASA.
--- NOTE | 2017-09-11 18:42 | CONSULT ---
Consult Consult Specialty:: ENDOCRINE Referred by:: TAVON BIRD MD Reason for Consultation:: DIABETES MELLITUS UNCONTROLLED - History of Present Illness Chief Complaint: HIGH SUGARS History of Present Illness: 52 y/o F with PMH HTN, s/p R BKA (2017; Dr. Manzo), HTN, HLD, DM, PAD, anxiety disorder, who presents to the ED c/o L foot pain over the past week. As per pt, a week ago, she suddenly developed 10/10, sharp pain and a "pressure like sensation" in her LLE, specifically her L foot. Pt states that the pain was a/w edema and erythema, and is worsened with weight-bearing. For this reason, pt went to [facility], however was recommended L A decided to follow with 2nd opinion for surgery with .Has had elevated blood sugars,frequent episode of low and high unable to control it well,no nausea or vomiting. - Past Medical History Cardio/Vascular: Yes: HTN, Other (PAD) Pulmonary: Yes: Asthma Gastrointestinal: Yes: Pancreatitis Hepatobiliary: Yes: Other (ALCOHOLISM STOPPED ONE YEAR AGO) Renal/: Yes: Other (PYLEONEPHRITIS RECENTLY AT [facility]) ...: No Endocrine: Yes: Diabetes Mellitus - Past Surgical History Past Surgical History: Yes: Cholecystectomy - Alcohol/Substance Use Hx Alcohol Use: No - Smoking History Smoking history: Current some day smoker Have you smoked in the past 12 months: No Aproximately how many cigarettes per day: 10 Home Medications - Allergies Allergies/Adverse Reactions: Allergies Allergy/AdvReac Type Severity Reaction Status Date / Time No Known Allergies Allergy Verified 09/10/17 10:47 - Home Medications Home Medications: Ambulatory Orders Aspirin [ASA -] 81 mg PO DAILY 05/04/15 Acetaminophen [Tylenol .Regular Strength -] 650 mg PO Q6H PRN #0 tablet Gabapentin [Neurontin -] 300 mg PO TID 09/08/16 Hydrochlorothiazide [Hctz -] 12.5 mg PO DAILY cap 09/08/16 Amlodipine Besylate [Norvasc -] 10 mg PO DAILY 09/10/17 Clopidogrel Bisulfate [Plavix -] 75 mg PO DAILY 09/10/17 Diphenhydramine HCl [Benadryl -] 25 mg PO Q8H 09/10/17 Furosemide [Lasix -] 20 mg PO DAILY 09/10/17 Insulin (Novolog) [Novolog Flexpen] 12 units SQ TID 09/10/17 Paroxetine HCl [Paxil -] 10 mg PO DAILY 09/10/17 Quetiapine Fumarate [Seroquel -] 200 mg PO BID 09/10/17 cloNIDine HCL [Catapres -] 0.1 mg PO BID 09/10/17 Review of Systems - Review of Systems Constitutional: reports: Lethargy, Weakness Eyes: reports: No Symptoms HENT: reports: No Symptoms Neck: reports: No Symptoms Cardiovascular: reports: Shortness of Breath Respiratory: reports: Exercise Intolerance, SOB on Exertion Gastrointestinal: reports: Constipation Genitourinary: reports: No Symptoms Breasts: reports: No Symptoms Reported Musculoskeletal: reports: Muscle Cramps, Muscle Weakness Integumentary: reports: No Symptoms Neurological: reports: Numbness, Weakness Endocrine: reports: Unexplained Weight Gain Physical Exam Vital Signs: Vital Signs Temperature 98 F 09/11/17 14:00 Pulse Rate 82 09/11/17 14:00 Respiratory Rate 20 09/11/17 14:00 Blood Pressure 152/81 09/11/17 14:00 O2 Sat by Pulse Oximetry (%) 98 09/11/17 08:00 Constitutional: Yes: Anxious Eyes: Yes: EOM Intact HENT: Yes: Normocephalic Neck: Yes: Trachea Midline Cardiovascular: Yes: Regular Rate and Rhythm Respiratory: Yes: CTA Bilaterally Gastrointestinal: Yes: Normal Bowel Sounds ...Rectal Exam: Yes: Deferred Renal/: Yes: WNL Musculoskeletal: Yes: WNL Extremities: Yes: Amputation Integumentary: Yes: Onychomycosis, Venous Stasis Changes Wound/Incision: Yes: Dressing Dry and Intact Neurological: Yes: Alert, Oriented Labs: CBC, BMP 09/11/17 06:15 09/11/17 06:15 Problem List - Problems (1) 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 Code(s): E10.610 - TYPE 1 DIABETES MELLITUS W DIABETIC NEUROPATHIC ARTHROPATHY (2) Gangrene associated with diabetes mellitus Code(s): E11.52 - TYPE 2 DIABETES W DIABETIC PERIPHERAL ANGIOPATHY W GANGRENE (3) Abdominal pain Code(s): R10.9 - UNSPECIFIED ABDOMINAL PAIN Qualifiers: Abdominal location: unspecified location Qualified Code(s): R10.9 - Unspecified abdominal pain (4) Chronic pancreatitis Code(s): K86.1 - OTHER CHRONIC PANCREATITIS (5) Diabetes Code(s): E11.9 - TYPE 2 DIABETES MELLITUS WITHOUT COMPLICATIONS Qualifiers: Diabetes mellitus type: type 2 Assessment/Plan Current Active Problems Chest pain (Acute) Gangrene associated with diabetes mellitus (Acute) diabetes mellitus hyperglycemia pad htn ashd Abnormal Lab Results 09/11/17 09/11/17 09/11/17 06:15 06:15 06:15 Plt Count 458 H Chloride 111 H Creatinine 1.2 H Random Glucose 157 H Hemoglobin A1c % 8.0 H Calcium 7.5 L Laboratory Results - last 24 hr 09/10/17 09/11/17 09/11/17 22:20 01:10 05:35 WBC RBC Hgb Hct MCV MCH MCHC RDW Plt Count MPV Neutrophils % Lymphocytes % Monocytes % Eosinophils % Basophils % Sodium Potassium Chloride Carbon Dioxide Anion Gap BUN Creatinine POC Glucometer 190 161 Random Glucose Hemoglobin A1c % Calcium Phosphorus Magnesium Troponin I < 0.02 09/11/17 09/11/17 09/11/17 06:15 06:15 06:15 WBC 6.7 RBC 3.65 Hgb 11.0 Hct 32.7 MCV 89.6 MCH 30.1 MCHC 33.6 RDW 14.3 Plt Count 458 H MPV 8.5 D Neutrophils % 58.0 Lymphocytes % 29.9 D Monocytes % 8.0 Eosinophils % 3.3 Basophils % 0.8 Sodium 142 Potassium 4.1 Chloride 111 H Carbon Dioxide 22 Anion Gap 9 BUN 16 Creatinine 1.2 H POC Glucometer Random Glucose 157 H Hemoglobin A1c % 8.0 H Calcium 7.5 L Phosphorus 3.7 Magnesium 2.0 Troponin I < 0.02 09/11/17 09/11/17 12:07 17:11 WBC RBC Hgb Hct MCV MCH MCHC RDW Plt Count MPV Neutrophils % Lymphocytes % Monocytes % Eosinophils % Basophils % Sodium Potassium Chloride Carbon Dioxide Anion Gap BUN Creatinine POC Glucometer 180 242 Random Glucose Hemoglobin A1c % Calcium Phosphorus Magnesium Troponin I plan: bgm qid novolog insulin doses levemir 20 units am titrate dose levemir 7 units hs diet nutrition consult needs follow up for tight control consider cgms and insulin pump therapy
[2017-09-11] MEDS: cloNIDine HCL 0.1 MG TABLET PO SCH (21:25)
[2017-09-11] MEDS: GABAPENTIN 300 MG CAPSULE (FP) PO SCH (21:25)
[2017-09-11] MEDS: INSULIN DETEMIR 100 UNITS/ML MDV SQ SCH (21:26)
[2017-09-11] MEDS ORDERED: QUEtiapine FUMARATE 200 MG TABLET PO SCH (22:00)
[2017-09-12] MEDS: diphenhydrAMINE HCL 25 MG CAPSULE (FP) PO SCH ×4 (00:59→22:53)
[2017-09-12] MEDS: QUEtiapine FUMARATE 200 MG TABLET PO SCH ×3 (00:59→22:53)
[2017-09-12] MEDS: METOPROLOL TARTRATE 25 MG TABLET (FP) PO SCH ×3 (00:59→22:53)
[2017-09-12] MEDS ORDERED: oxyCODONE HCL 5 MG TABLET PO ONE (06:05)
[2017-09-12] MEDS: INSULIN SLIDING SCALE (NOVOLOG) 1 VIAL SQ SCH ×4 (06:26→22:58)
[2017-09-12] MEDS: GABAPENTIN 300 MG CAPSULE (FP) PO SCH ×3 (06:29→22:53)
[2017-09-12] MEDS: INSULIN DETEMIR 100 UNITS/ML MDV SQ SCH ×2 (06:30→22:50)
[2017-09-12] MEDS: HYDROCHLOROTHIAZIDE 12.5 MG CAPSULE (FP) PO SCH (09:46)
[2017-09-12] MEDS: cloNIDine HCL 0.1 MG TABLET PO SCH ×2 (09:46→22:53)
[2017-09-12] MEDS: ASPIRIN 81 MG CHEWABLE TABLETS PO SCH (09:46)
[2017-09-12] MEDS: FUROSEMIDE 20 MG TABLET (FP) PO SCH (09:46)
[2017-09-12] MEDS: HEPARIN NA (PORCINE) 5,000 UNITS/ML 1ML VIAL SQ SCH ×2 (09:46→22:53)
[2017-09-12] MEDS: amLODIPine BESYLATE 10 MG TABLET (FP) PO SCH (09:46)
[2017-09-12] MEDS: PARoxetine HCL 10 MG TABLET (FP) PO SCH (09:46)
[2017-09-12] MEDS: CLOPIDOGREL BISULFATE 75 MG TABLET (FP) PO SCH (09:46)
[2017-09-12] MEDS: ACETAMINOPHEN 325 MG TABLET (FP) PO PRN (19:58)
--- NOTE | 2017-09-12 22:22 | PN ---
Progress Note, Physician Chief Complaint: Gangrene History of Present Illness: NAD, in bed LLE pain 2/2 to gangrene Refused to see Dr Sifuentes, wants to see Dr Manzo for Vascular intervention Dr Manzo would see pt on Thursday Pain management - Current Medication List Current Medications: Active Medications Acetaminophen (Tylenol -) 650 mg PO Q4H PRN PRN Reason: MODERATE PAIN Last Admin: 09/12/17 19:58 Dose: 650 mg Amlodipine Besylate (Norvasc -) 10 mg PO DAILY [facility] Last Admin: 09/12/17 09:46 Dose: 10 mg Aspirin (Asa -) 81 mg PO DAILY [facility] Last Admin: 09/12/17 09:46 Dose: 81 mg Clonidine (Catapres -) 0.1 mg PO BID [facility] Last Admin: 09/12/17 09:46 Dose: 0.1 mg Clopidogrel Bisulfate (Plavix -) 75 mg PO DAILY [facility] Last Admin: 09/12/17 09:46 Dose: 75 mg Diphenhydramine HCl (Benadryl -) 25 mg PO TID [facility] Last Admin: 09/12/17 14:46 Dose: 25 mg Furosemide (Lasix -) 20 mg PO DAILY [facility] Last Admin: 09/12/17 09:46 Dose: 20 mg Gabapentin (Neurontin -) 300 mg PO TID [facility] Last Admin: 09/12/17 14:46 Dose: 300 mg Heparin Sodium (Porcine) (Heparin -) 5,000 unit SQ BID [facility] Last Admin: 09/12/17 09:46 Dose: 5,000 unit Hydrochlorothiazide (Hctz -) 12.5 mg PO DAILY [facility] Last Admin: 09/12/17 09:46 Dose: 12.5 mg Insulin Aspart (Novolog Vial Sliding Scale -) [address] [facility] PRN Reason: Protocol Last Admin: 09/12/17 16:38 Dose: Not Given Insulin Detemir (Levemir Vial) 20 units SQ AM [facility] Last Admin: 09/12/17 06:30 Dose: 20 units Insulin Detemir (Levemir Vial) 7 units SQ HS [facility] Last Admin: 09/11/17 21:26 Dose: Not Given Metoprolol Tartrate (Lopressor -) 25 mg PO BID [facility] Last Admin: 09/12/17 09:46 Dose: 25 mg Paroxetine HCl (Paxil -) 10 mg PO DAILY [facility] Last Admin: 09/12/17 09:46 Dose: 10 mg Quetiapine Fumarate (Seroquel -) 200 mg PO BID [facility] Last Admin: 09/12/17 11:31 Dose: 200 mg - Objective Vital Signs: Vital Signs Temperature 98.2 F 09/12/17 18:00 Pulse Rate 69 09/12/17 18:00 Respiratory Rate 18 09/12/17 18:00 Blood Pressure 142/79 09/12/17 18:00 O2 Sat by Pulse Oximetry (%) 96 09/12/17 08:00 Constitutional: Yes: Well Nourished, No Distress, Calm Cardiovascular: Yes: Regular Rate and Rhythm Respiratory: Yes: Regular Gastrointestinal: Yes: Normal Bowel Sounds, Soft Musculoskeletal: Yes: Muscle Pain (LLE) Extremities: Yes: Amputation (RLE), Cool (LLE) Edema: Yes (LLE) Peripheral Pulses WNL: No Peripheral Pulses: Left Doralis Pedis: 0 Psychiatric: Yes: Alert, Oriented Labs: CBC, BMP 09/11/17 06:15 09/12/17 19:45 INR, PTT INR 0.97 (0.82-1.09) 09/10/17 13:25 Problem List - Problems (1) Chest pain Assessment/Plan: -seen by Cardiology -Atypical CP -no events on Tele -no cardiac workup recommended at this time -d/c tele Code(s): R07.9 - CHEST PAIN, UNSPECIFIED Qualifiers: Chest pain type: unspecified Qualified Code(s): R07.9 - Chest pain, unspecified (2) Gangrene associated with diabetes mellitus Assessment/Plan: -LLE -To be seen by Dr Manzo -Pain management Code(s): E11.52 - TYPE 2 DIABETES W DIABETIC PERIPHERAL ANGIOPATHY W GANGRENE (3) Diabetes Assessment/Plan: -Uncontrolled -non compliant outpatient -RD consult -Endocrinology consult -Levemir decreased to 16 in AM and 7 U in PM due to early AM hypoglycemia, likely due to controlled diet during her hospital stay -BGM -Diabetic diet Code(s): E11.9 - TYPE 2 DIABETES MELLITUS WITHOUT COMPLICATIONS Qualifiers: Diabetes mellitus type: type 2 Assessment/Plan See problem lsit DVT and GI prophylaxis
[2017-09-12] MEDS ORDERED: PT OWN MED DRAWER 7, Y5N ONE (22:49)
[2017-09-12] MEDS: oxyCODONE HCL 5 MG TABLET PO PRN (22:54)
[2017-09-13] MEDS: diphenhydrAMINE HCL 25 MG CAPSULE (FP) PO SCH ×4 (06:15→21:55)
[2017-09-13] MEDS: GABAPENTIN 300 MG CAPSULE (FP) PO SCH ×3 (06:16→21:55)
[2017-09-13] MEDS: INSULIN DETEMIR 100 UNITS/ML MDV SQ SCH (06:16)
[2017-09-13] MEDS: INSULIN SLIDING SCALE (NOVOLOG) 1 VIAL SQ SCH ×4 (06:17→21:56)
[2017-09-13] MEDS ORDERED: PT OWN MED DRAWER 7, Y5N ONE (10:03)
[2017-09-13] MEDS: cloNIDine HCL 0.1 MG TABLET PO SCH ×2 (10:07→21:55)
[2017-09-13] MEDS: HYDROCHLOROTHIAZIDE 12.5 MG CAPSULE (FP) PO SCH (10:07)
[2017-09-13] MEDS: ASPIRIN 81 MG CHEWABLE TABLETS PO SCH (10:07)
[2017-09-13] MEDS: HEPARIN NA (PORCINE) 5,000 UNITS/ML 1ML VIAL SQ SCH ×2 (10:07→21:55)
[2017-09-13] MEDS: FUROSEMIDE 20 MG TABLET (FP) PO SCH (10:07)
[2017-09-13] MEDS: PARoxetine HCL 10 MG TABLET (FP) PO SCH (10:08)
[2017-09-13] MEDS: CLOPIDOGREL BISULFATE 75 MG TABLET (FP) PO SCH (10:08)
[2017-09-13] MEDS: amLODIPine BESYLATE 10 MG TABLET (FP) PO SCH (10:08)
[2017-09-13] MEDS: METOPROLOL TARTRATE 25 MG TABLET (FP) PO SCH ×2 (10:08→21:55)
[2017-09-13] MEDS: QUEtiapine FUMARATE 200 MG TABLET PO SCH ×2 (10:09→21:55)
[2017-09-13] MEDS: oxyCODONE HCL 5 MG TABLET PO PRN ×2 (10:19→18:43)
[2017-09-13] MEDS: ACETAMINOPHEN 325 MG TABLET (FP) PO PRN ×2 (10:20→18:44)
[2017-09-13] MEDS ORDERED: INSULIN DETEMIR 100 UNITS/ML MDV SQ SCH (11:54)
[2017-09-13] MEDS: PANTOPRAZOLE 20 MG TABLET (FP) PO SCH (13:55)
--- NOTE | 2017-09-13 17:49 | PN ---
Progress Note, Physician Chief Complaint: Gangrene History of Present Illness: NAD, in bed LLE pain 2/2 to gangrene Refused to see Dr Sifuentes, wants to see Dr Manzo for Vascular intervention Dr Manzo would see pt on Thursday Pain management - Current Medication List Current Medications: Active Medications Acetaminophen (Tylenol -) 650 mg PO Q4H PRN PRN Reason: MODERATE PAIN Last Admin: 09/13/17 10:20 Dose: 650 mg Amlodipine Besylate (Norvasc -) 10 mg PO DAILY [facility] Last Admin: 09/13/17 10:08 Dose: 10 mg Aspirin (Asa -) 81 mg PO DAILY [facility] Last Admin: 09/13/17 10:07 Dose: 81 mg Clonidine (Catapres -) 0.1 mg PO BID [facility] Last Admin: 09/13/17 10:07 Dose: 0.1 mg Clopidogrel Bisulfate (Plavix -) 75 mg PO DAILY [facility] Last Admin: 09/13/17 10:08 Dose: 75 mg Diphenhydramine HCl (Benadryl -) 25 mg PO TID [facility] Last Admin: 09/13/17 14:01 Dose: 25 mg Furosemide (Lasix -) 20 mg PO DAILY [facility] Last Admin: 09/13/17 10:07 Dose: 20 mg Gabapentin (Neurontin -) 300 mg PO TID [facility] Last Admin: 09/13/17 13:58 Dose: 300 mg Heparin Sodium (Porcine) (Heparin -) 5,000 unit SQ BID [facility] Last Admin: 09/13/17 10:07 Dose: 5,000 unit Hydrochlorothiazide (Hctz -) 12.5 mg PO DAILY [facility] Last Admin: 09/13/17 10:07 Dose: 12.5 mg Insulin Aspart (Novolog Vial Sliding Scale -) 1 vial SQ [facility] PRN Reason: Protocol Last Admin: 09/13/17 16:39 Dose: Not Given Insulin Detemir (Levemir Vial) 16 units SQ AM [facility] Insulin Detemir (Levemir Vial) 5 units SQ HS [facility] Metoprolol Tartrate (Lopressor -) 25 mg PO BID [facility] Last Admin: 09/13/17 10:08 Dose: 25 mg Oxycodone HCl (Roxicodone -) 5 mg PO Q6H PRN PRN Reason: PAIN LEVEL 6-10 Last Admin: 03/25/18 10:19 Dose: 5 mg Pantoprazole Sodium (Protonix -) 20 mg PO DAILY [facility] Last Admin: 09/13/17 13:55 Dose: 20 mg Paroxetine HCl (Paxil -) 10 mg PO DAILY [facility] Last Admin: 09/13/17 10:08 Dose: 10 mg Quetiapine Fumarate (Seroquel -) 200 mg PO BID [facility] Last Admin: 09/13/17 10:09 Dose: 200 mg - Objective Vital Signs: Vital Signs Temperature 98.9 F 09/13/17 13:55 Pulse Rate 68 09/13/17 13:55 Respiratory Rate 18 09/13/17 13:55 Blood Pressure 136/75 09/13/17 13:55 O2 Sat by Pulse Oximetry (%) 97 09/13/17 09:00 Constitutional: Yes: Well Nourished, No Distress, Calm Cardiovascular: Yes: Regular Rate and Rhythm Respiratory: Yes: Regular Gastrointestinal: Yes: Normal Bowel Sounds, Soft Musculoskeletal: Yes: Muscle Pain (LLE) Extremities: Yes: Amputation (RLE), Cool (LLE) Neurological: Yes: Alert, Oriented Psychiatric: Yes: Alert, Oriented Labs: CBC, BMP 09/11/17 06:15 09/13/17 05:00 INR, PTT INR 0.97 (0.82-1.09) 09/10/17 13:25 Problem List - Problems (1) Chest pain Assessment/Plan: -seen by Cardiology -Atypical CP -no events on Tele -no cardiac workup recommended at this time -d/c tele Code(s): R07.9 - CHEST PAIN, UNSPECIFIED Qualifiers: Chest pain type: unspecified Qualified Code(s): R07.9 - Chest pain, unspecified (2) Gangrene associated with diabetes mellitus Assessment/Plan: -LLE -To be seen by Dr Manzo -Pain management Code(s): E11.52 - TYPE 2 DIABETES W DIABETIC PERIPHERAL ANGIOPATHY W GANGRENE (3) Diabetes Assessment/Plan: -Uncontrolled -non compliant outpatient -RD consult -Endocrinology consult -Levemir decreased to 16 in AM and D/C levemir HS dose -BGM -Diabetic diet Code(s): E11.9 - TYPE 2 DIABETES MELLITUS WITHOUT COMPLICATIONS Qualifiers: Diabetes mellitus type: type 2 Assessment/Plan See problem lsit DVT and GI prophylaxis
[2017-09-14] MEDS: GABAPENTIN 300 MG CAPSULE (FP) PO SCH ×3 (06:41→21:52)
[2017-09-14] MEDS: INSULIN SLIDING SCALE (NOVOLOG) 1 VIAL SQ SCH ×4 (06:41→21:52)
[2017-09-14] MEDS: diphenhydrAMINE HCL 25 MG CAPSULE (FP) PO SCH ×3 (06:41→21:52)
[2017-09-14] MEDS: INSULIN DETEMIR 100 UNITS/ML MDV SQ SCH (06:42)
[2017-09-14 07:02] LABS: BASO % 0.8 % (0-2.0); EOS % 1.3 % (0-4.5); HEMATOCRIT 30.7 % (32.4-45.2); HEMOGLOBIN 10.1 GM/dL (10.7-15.3); LYMPH % 19.3 % (8-40); MCH 29.6 pg (25.7-33.7); MCHC 32.9 g/dl (32.0-36.0); MEAN PLT VOLUME 8.8 fl (7.5-11.1); MONO % 5.1 % (3.8-10.2); NEUT % 73.5 % (42.8-82.8); PLATELET COUNT 438 K/MM3 (134-434); RBC 3.41 M/mm3 (3.60-5.2); RDW 14.9 % (11.6-15.6); WHITE BLOOD COUNT 18.3 K/mm3 (4.0-10.0)
[2017-09-14 07:33] LABS: ANION GAP 10 (8-16); BLOOD UREA NITROGEN 19 mg/dL (7-18); CALCIUM 7.4 mg/dL (8.5-10.1); CHLORIDE 110 mmol/L (98-107); CO2 22 mmol/L (21-32); GLUCOSE,RANDOM 157 mg/dL (74-106); POTASSIUM 4.6 mmol/L (3.5-5.1); SGOT/AST 18 U/L (15-37); SGPT/ALT 18 U/L (12-78); SODIUM 142 mmol/L (136-145)
[2017-09-14 07:35] LABS: ALK PHOS 324 U/L (45-117); BILIRUBIN,TOTAL 0.2 mg/dL (0.2-1.0); CREATININE 1.6 mg/dL (0.55-1.02); TOT PROT 3.7 g/dl (6.4-8.2)
[2017-09-14 09:10] LABS: ERYTHROCYTE SEDIMENTATION RATE 85 mm/hr (0-30)
[2017-09-14] MEDS: HEPARIN NA (PORCINE) 5,000 UNITS/ML 1ML VIAL SQ SCH ×2 (11:04→21:52)
[2017-09-14] MEDS: PANTOPRAZOLE 20 MG TABLET (FP) PO SCH (11:04)
[2017-09-14] MEDS: ASPIRIN 81 MG CHEWABLE TABLETS PO SCH (11:04)
[2017-09-14] MEDS: FUROSEMIDE 20 MG TABLET (FP) PO SCH (11:04)
[2017-09-14] MEDS: CLOPIDOGREL BISULFATE 75 MG TABLET (FP) PO SCH (11:04)
[2017-09-14] MEDS: METOPROLOL TARTRATE 25 MG TABLET (FP) PO SCH (11:04)
[2017-09-14] MEDS: amLODIPine BESYLATE 10 MG TABLET (FP) PO SCH (11:04)
[2017-09-14] MEDS: HYDROCHLOROTHIAZIDE 12.5 MG CAPSULE (FP) PO SCH (11:04)
[2017-09-14] MEDS: QUEtiapine FUMARATE 200 MG TABLET PO SCH ×2 (11:05→21:51)
[2017-09-14] MEDS ORDERED: PT OWN MED DRAWER 7, Y5N ONE (11:06)
[2017-09-14] MEDS: PARoxetine HCL 10 MG TABLET (FP) PO SCH (11:07)
[2017-09-14] MEDS: cloNIDine HCL 0.1 MG TABLET PO SCH ×2 (11:12→21:52)
--- NOTE | 2017-09-14 12:04 | PN ---
Progress Note (short form) - Note Progress Note: ID Consult dictated Leukocytosis. possible sepsis Gangrene L 3rd toe ? CVA Chest pain syndrome PVD S/P R BKA Azotemia Obtain cultures Lactic acid Empiric zosyn + stat dose vancomycin
--- NOTE | 2017-09-14 12:27 | CONSULT ---
Admitting History and Physical - Primary Care Physician PCP: Lula Pimentel - Admission History of Present Illness: 52 y/o F with PMH HTN, s/p R BKA (2017; Dr. Manzo), HTN, HLD, DM, PAD, anxiety disorder, who presents to the ED c/o L foot pain over the past week. Pt admitted to tele-obs for r/o ACS and L third toe gangrene. Lethargy. CT revealed probable acute/subacute infarct in right internal capsule. Selected Entries 09/13/17 09/13/17 09/13/17 02:00 06:00 10:00 Breakfast Lunch Temperature 98.1 F 98 F 97 F L 09/13/17 09/13/17 09/13/17 10:31 13:06 13:55 Breakfast 100% Lunch 100% Temperature 98.9 F 09/13/17 09/14/17 09/14/17 21:00 02:00 06:00 Breakfast Lunch Temperature 99.0 F 99.1 F 99.0 F 09/14/17 10:38 Breakfast 50% Lunch Temperature Laboratory Tests 09/11/17 09/14/17 06:15 06:45 WBC 6.7 18.3 H D This is my first consultation with this pt. History Source: Patient, Medical Record Limitations to Obtaining History: No Limitations - Past Medical History Cardiovascular: Yes: HTN, Other (PAD) Pulmonary: Yes: Asthma Gastrointestinal: Yes: Pancreatitis Hepatobiliary: Yes: Other (ALCOHOLISM STOPPED ONE YEAR AGO) Renal/: Yes: Other (PYLEONEPHRITIS RECENTLY AT [facility]) ...: No Endocrine: Yes: Diabetes Mellitus - Past Surgical History Past Surgical History: Yes: Cholecystectomy - Smoking History Smoking history: Former smoker Have you smoked in the past 12 months: No Aproximately how many cigarettes per day: 10 - Alcohol/Substance Use Hx Alcohol Use: No History - Admission Reason For Visit: GANGRENE ASSOCIATED WITH DIABETES - Diagnostics X-ray: Report Reviewed CT Scan: Report Reviewed - General Mental Status: Alert and Oriented, Awake and Alert, Able to Follow Commands Attention: Intact Ability to Follow Directions: Good Head/Neck Control: WFL - Hearing Hearing: Functional Hearing: Normal Hearing Aide: No With Patient: No Speech Evaluation - Communication Primary Language: FRISIAN Communication: Yes: Dysarthria Oral Expression Ability: Yes: Mild Impairment, Moderate Impairment - Speech Production Dysarthria: Yes: Flaccid Able to Make Needs Known: Yes: Mildly Impaired, Moderately Impaired Intelligibility: Yes: Mildly Impaired, Moderately Impaired - Speech Characteristics Voice Loudness: Mildly Soft/Quiet Voice Pitch: Yes: Normal Voice Phonatory-based Quality: Yes: Dysphonia (mild) Speech Pattern: Impaired Speech Clarity: < 75% Nasal Resonance: Normal Articulation: Yes: Imprecise Rate of Speech: Too Fast Voice, Other Observations: Yes: Progressively Weak Voice, Inadequate Breath Support - Language/Auditory Comprehension Observation: Able to respond to yes/no queries: Yes, Yes/No Confusion: No, Comprehends Conversational Speech: Yes - Language/Verbal Expression Functional Communication Status: Yes: Mildly Impaired, Moderately Impaired - 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: WNL Short Term Memory: Yes: WNL - Swallow Evaluation/Bedside Assessment Current Nutritional Intake: Regular, Thin Liquids Oral Secretions: Yes: WFL Dentition: Yes: Adequate, Missing Teeth Facial Symmetry at Rest: Facial Droop Left Facial Symmetry on Retraction: Facial Droop Left Sensation: Normal Jaw Position: Closed at Rest Pucker Lips: Droops Left Smile: Droops Left Lingual Movement: Deviates Left Lingual Speed of Movement: Reduced Lingual Movement Strgth Against Opposition: Reduced Lingual Movement Characteristics: Normal Laryngeal Movement: Reduced Excursion, Labored,delay initiation Rate of Intake: WFL Labial Seal: WFL Chewing: Impaired (reduced in rate. overtly efficient.) Oral Prep Time: Increased A-P Transit: WFL Pocketing: None Timing of Swallow: Delayed Coughing/Throat Clear: No Change in Voice: No Recommendations - Speech Evaluation, Impression/Plan Impression: Mild to moderate Dysarthria with impaired precision of articulation and reduced articulatory rate. Mastication is reduced in rate.Seems oriented and appropriate. Good historian. Pt reports speech became impaired yesterday. "No one can understand me." (-) 3 oz water test but suspect risk of aspiration. - Disposition [facility] to[facility] - Dysphagia Impressions/Plan Dysphagia Impressions: Mild Impairment, Risk of Aspiration, Ongoing Evaluation *Silent aspiration: cannot be R/O at bedside Dysphagia Treatment Plan: Chin Tuck/Down, Clear Pocket Food, Safe Rate, 1/2 tsp. at a time, Elevate HOB during feed Recommendations: Modified Barium Swallow (if cough, congestion, fever noted) - Recommendations Diet Consistency: Regular (so9ft, easy to chew.) Medication Administration: Whole with water Liquids: Thin Liquids (monitot tolerance. If cough, downgrade to netar and rec MBS)
[2017-09-14] MEDS ORDERED: VANCOMYCIN 1,000 MG in DEXTROSE 5%-WATER - 250 ML IVPB ONE (13:00)
[2017-09-14] MEDS ORDERED: ATORVASTATIN CA 40 MG TABLET (FP) PO ONE (13:30)
[2017-09-14] MEDS: PIPERACILLIN/TAZOB 3.375 GM 3.375 GM in DEXTROSE 5%-WATER - 50 ML IVPB SCH ×2 (13:46→21:00)
[2017-09-14] MEDS ORDERED: SODIUM CHLORIDE 250 ML IV ONE (14:30)
--- NOTE | 2017-09-14 16:44 | CONS ---
DATE OF CONSULTATION: DATE OF DICTATION: 09/14/2017 The patient is a 52-year-old diabetic female with a history of peripheral vascular disease, status post right below the knee amputation being evaluated for sepsis. The patient was admitted to the hospital on September 12, 2017. According to the note, she had been hospital at [facility] with gangrene of the left third toe. According to the notes she was advised a left BKA. She apparently eloped and came to the [facility] for a second opinion. The patient was noted to have gangrene of the left third toe. She had a complaint of increasing pain, erythema, and swelling for 1 week prior to admission. She was admitted to the hospital where her course was complicated by acute chest pain syndrome and she was put on the telemetry unit. Today she was noted to be poorly responsive and with a markedly elevated white blood cell count. A STAT CAT scan of the head was performed and showed a right internal capsule acute versus subacute infarct. At the present time she is awake but lethargic. She complains of left foot pain. She denies any fever or shaking chills. No complaints of chest pain, shortness of breath, cough, sputum production, vomiting, diarrhea, or dysuria. PAST MEDICAL HISTORY: Positive for peripheral vascular disease, diabetes mellitus, hypertension, and hyperlipidemia. PAST SURGICAL HISTORY: Status post right below the knee amputation 2016. ALLERGIES: No known allergies. MEDICATIONS: Aspirin. Tylenol, Neurontin, hydrochlorothiazide, Norvasc, Plavix, Lasix, NovoLog, Paxil, Seroquel, and Catapres. SOCIAL HISTORY: She lives at home. 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 She is a former smoker. REVIEW OF SYSTEMS: Neurologic: Now for increased lethargy, possible acute stroke. Cardiac: Positive chest pain syndrome. Respiratory: Negative cough, sputum production. Gastrointestinal: Negative vomiting or diarrhea. Genitourinary: Negative for a urinary tract infection. LABORATORY DATA: White count 18.3, 73 neutrophils, 19 lymphocytes, 5 monocytes, hematocrit 30.7, and platelet count 438. BUN 19, creatinine 1.6, and sedimentation rate 85. Total bilirubin 0.2, alkaline phosphatase 324, and AST 18. PHYSICAL EXAMINATION: General: The patient is awake but lethargic. Vital Signs: Temperature 99.0, blood pressure 117/64, pulse 68 and regular, and respirations 18 per minute. HEENT: Sclerae anicteric. Questionable left facial droop. Heart: S1, S2. Lungs: Poor inspiratory effort grossly clear. Abdomen: Soft, no tenderness elicited. No mass, rebound, or rigidity. Extremities: Negative for edema. There is gangrene of the left third toe. IMPRESSION: 1. Leukocytosis, possible sepsis. 2. Gangrene, left third toe. 3. Rule out new cerebrovascular accident. 4. Chest pain syndrome. 5. Peripheral basilar disease status posit right below the knee amputation. We will obtain cultures. Blood cultures, urinalysis, urine culture, lactic acid level, and empiric antibiotic coverage for possible skin source of infection with Zosyn and a STAT dose of vancomycin. Neurology evaluation. We will follow. Thank you for the kind referral. DELMI BLUM M.D. [id number]
--- NOTE | 2017-09-14 17:12 | PN ---
Progress Note, Physician Chief Complaint: NOTES AND EVENTS REVIEWED THIS IS MY FIRST ENCOUNTER ON THIS ADMMISSION CT HEAD REVIEWED NEUROLOGY CALLED FOR CONSULT LIPITOR STARTED WILL ORDER ECHO FOR CARDIAC EVAL - Current Medication List Current Medications: Active Medications Acetaminophen (Tylenol -) 650 mg PO Q4H PRN PRN Reason: MODERATE PAIN Last Admin: 09/13/17 18:44 Dose: 650 mg Amlodipine Besylate (Norvasc -) 10 mg PO DAILY [facility] Last Admin: 09/14/17 11:04 Dose: 10 mg Aspirin (Asa -) 81 mg PO DAILY [facility] Last Admin: 09/14/17 11:04 Dose: 81 mg Clonidine (Catapres -) 0.1 mg PO BID [facility] Last Admin: 09/14/17 11:12 Dose: Not Given Clopidogrel Bisulfate (Plavix -) 75 mg PO DAILY [facility] Last Admin: 09/14/17 11:04 Dose: 75 mg Diphenhydramine HCl (Benadryl -) 25 mg PO TID [facility] Last Admin: 09/14/17 13:34 Dose: Not Given Furosemide (Lasix -) 20 mg PO DAILY [facility] Last Admin: 09/14/17 11:04 Dose: 20 mg Gabapentin (Neurontin -) 300 mg PO TID [facility] Last Admin: 09/14/17 13:46 Dose: 300 mg Heparin Sodium (Porcine) (Heparin -) 5,000 unit SQ BID [facility] Last Admin: 09/14/17 11:04 Dose: 5,000 unit Hydrochlorothiazide (Hctz -) 12.5 mg PO DAILY [facility] Last Admin: 09/14/17 11:04 Dose: 12.5 mg Piperacillin Sod/Tazobactam (Sod 3.375 gm/ Dextrose) 50 mls @ 100 mls/hr IVPB Q8H-IV [facility] PRN Reason: Protocol Last Admin: 09/14/17 13:46 Dose: 100 mls/hr Insulin Aspart (Novolog Vial Sliding Scale -) 1 vial SQ ACHS [facility] PRN Reason: Protocol Last Admin: 09/14/17 11:00 Dose: Not Given Insulin Detemir (Levemir Vial) 16 units SQ AM [facility] Last Admin: 09/14/17 06:42 Dose: 16 units Metoprolol Tartrate (Lopressor -) 25 mg PO BID [facility] Last Admin: 09/14/17 11:04 Dose: 25 mg Oxycodone HCl (Roxicodone -) 5 mg PO Q6H PRN PRN Reason: PAIN LEVEL 6-10 Last Admin: 09/13/17 18:43 Dose: 5 mg Pantoprazole Sodium (Protonix -) 20 mg PO DAILY [facility] Last Admin: 09/14/17 11:04 Dose: 20 mg Paroxetine HCl (Paxil -) 10 mg PO DAILY [facility] Last Admin: 09/14/17 11:07 Dose: 10 mg Quetiapine Fumarate (Seroquel -) 200 mg PO BID [facility] Last Admin: 09/14/17 11:05 Dose: Not Given - Objective Vital Signs: Vital Signs Temperature 97.6 F 09/14/17 14:00 Pulse Rate 63 09/14/17 14:00 Respiratory Rate 20 09/14/17 10:00 Blood Pressure 92/51 09/14/17 14:00 O2 Sat by Pulse Oximetry (%) 95 09/14/17 10:00 Constitutional: Yes: Mild Distress Eyes: Yes: WNL HENT: Yes: WNL Neck: Yes: WNL Cardiovascular: Yes: WNL Respiratory: Yes: WNL Gastrointestinal: Yes: WNL Genitourinary: Yes: Incontinence Extremities: Yes: Amputation Edema: No Wound/Incision: Yes: Open to air Neurological: Yes: Pre-Existing Deficit, Unsteady Gait, Weakness ...Motor Strength: RLE Psychiatric: Yes: WNL Labs: CBC, BMP 09/14/17 06:45 09/14/17 06:45 INR, PTT INR 0.97 (0.82-1.09) 09/10/17 13:25 Problem List - Problems (1) Poor compliance with medication Code(s): Z91.14 - PATIENT'S OTHER NONCOMPLIANCE WITH MEDICATION REGIMEN (2) Gangrene associated with diabetes mellitus Code(s): E11.52 - TYPE 2 DIABETES W DIABETIC PERIPHERAL ANGIOPATHY W GANGRENE (3) 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 Code(s): E10.610 - TYPE 1 DIABETES MELLITUS W DIABETIC NEUROPATHIC ARTHROPATHY (4) Anemia Code(s): D64.9 - ANEMIA, UNSPECIFIED (5) Tobacco dependence Code(s): F17.200 - NICOTINE DEPENDENCE, UNSPECIFIED, UNCOMPLICATED (6) 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
[2017-09-14] MEDS: ACETAMINOPHEN 325 MG TABLET (FP) PO PRN (17:37)
--- NOTE | 2017-09-14 17:57 | CON.NEURO ---
Consult - History of Present Illness History of Present Illness: 52 y/o F with PMH HTN, s/p R BKA (2017; Dr. Manzo), HTN, HLD, DM, PAD, anxiety disorder, who presents to the ED c/o L foot pain over the past week. As per pt, a week ago, she suddenly developed 10/10, sharp pain and a "pressure like sensation" in her LLE, specifically her L foot. Pt states that the pain was a/w edema and erythema, and is worsened with weight-bearing. For this reason, pt went to [facility], however was recommended L BKA by Dr. Sifuentes. She left AMA, and came to [facility] for another opinion. Pt is requesting tx from Dr. Manzo, since he performed her R BKA - at this time, surgical intervention is not needed emergently. Pt states that ever since her recent trip to [place] two days ago, she has had diffuse chest pain a/w SOB, that came about when she discussed the BKA. She believes it is related to anxiety. During this time, pt also endorses diaphoresis and nausea with intermittent emesis. Denies DIAMOND, fever , chills, or changes in urinary or bowel function. called for right sided weakness/numbness and slurred speech, 8:30 AM (as per nurse lethargic) though this has improved later in day wbc did increase today ; CT HD : right IC subacute infarct 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 Medical History Cardio/Vascular: Yes: HTN, Other (PAD) Pulmonary: Yes: Asthma Gastrointestinal: Yes: Pancreatitis Hepatobiliary: Yes: Other (ALCOHOLISM STOPPED ONE YEAR AGO) Renal/: Yes: Other (PYLEONEPHRITIS RECENTLY AT [facility]) ...: No Endocrine: Yes: Diabetes Mellitus - Past Surgical History Past Surgical History: Yes: Cholecystectomy - Alcohol/Substance Use Hx Alcohol Use: No - Smoking History Smoking history: Former smoker Have you smoked in the past 12 months: No Aproximately how many cigarettes per day: 10 Home Medications - Allergies Allergies/Adverse Reactions: Allergies Allergy/AdvReac Type Severity Reaction Status Date / Time No Known Allergies Allergy Verified 09/10/17 10:47 - Home Medications Home Medications: Ambulatory Orders Aspirin [ASA -] 81 mg PO DAILY 05/04/15 Acetaminophen [Tylenol .Regular Strength -] 650 mg PO Q6H PRN #0 tablet Gabapentin [Neurontin -] 300 mg PO TID 09/08/16 Hydrochlorothiazide [Hctz -] 12.5 mg PO DAILY cap 09/08/16 Amlodipine Besylate [Norvasc -] 10 mg PO DAILY 09/10/17 Clopidogrel Bisulfate [Plavix -] 75 mg PO DAILY 09/10/17 Diphenhydramine HCl [Benadryl Capsule -] 25 mg PO Q8H 09/10/17 Furosemide [Lasix -] 20 mg PO DAILY 09/10/17 Insulin (Novolog) [Novolog Flexpen -] 12 units SQ TID 09/10/17 Paroxetine HCl [Paxil -] 10 mg PO DAILY 09/10/17 Quetiapine Fumarate [Seroquel -] 200 mg PO BID 09/10/17 cloNIDine HCL [Catapres -] 0.1 mg PO BID 09/10/17 Insulin Detemir [Levemir Flextouch] 100 unit SQ [facility]IR #1 insuln.pen 09/12/17 Metoprolol Tartrate [Lopressor -] 25 mg PO BID #60 tablet 09/12/17 Pen Needle, Diabetic [Bd Ultra-Fine Pen Needle] 1 each MC BID #100 dis.needle Physical Exam-Neuro Vital Signs: Vital Signs Temperature 97.6 F 09/14/17 14:00 Pulse Rate 63 09/14/17 14:00 Respiratory Rate 20 09/14/17 10:00 Blood Pressure 92/51 09/14/17 14:00 O2 Sat by Pulse Oximetry (%) 95 09/14/17 10:00 Constitutional: Yes: No Distress Labs: CBC, BMP 09/14/17 06:45 09/14/17 06:45 INR, PTT INR 0.97 (0.82-1.09) 09/10/17 13:25 - Neuro Exam Level Of Consciousness: Yes: Alert (awake, alert, EOMI, no facila, + dysarthia, follows 3 steps, no clear exe weakness R BKA); left foot D3 nectrotic ; no focal weakness LLE ) NIH Stroke Scale - Last Known Well Date/Time & Onset Date Last Known Well: 09/14/17 Time Last Known Well: 08:30 - Initial Evaluation Level of consciousness: Alert Ask patient the month and their age: Answers both correctly Ask patient to open & close eyes; make fist and let go: Obeys both correctly Best gaze (horizontal eye movement): Normal Visual field testing: No visual field loss Facial paresis (Show teeth/raise eyebrows/close eyes tight): Normal symmetrical movement Motor Function: Left Arm: Normal Motor Function: Right Arm: Normal (extends arm 90 (or 45) degrees for 10 seconds without drift Motor Function: Left Leg: Normal (extends leg 30 degrees for 5 seconds without drift) Motor Function: Right Leg: Normal (extends leg 30 degrees for 5 seconds without drift) Limb Ataxia: No ataxia Sensory(Use pinprick test arms,legs,trunk,face/side to side): Normal Best language (Describe picture, name items, read sentences): No Aphasia Dysarthria (read several words): Mild to moderate slurring of words Extinction and Inattention: No abnormality - Total Score NIH Stroke Scale Score: 1 Problem List - Problems (1) CVA (cerebrovascular accident) Code(s): I63.9 - CEREBRAL INFARCTION, UNSPECIFIED (2) Gangrene associated with diabetes mellitus Code(s): E11.52 - TYPE 2 DIABETES W DIABETIC PERIPHERAL ANGIOPATHY W GANGRENE (3) Poor compliance with medication Code(s): Z91.14 - PATIENT'S OTHER NONCOMPLIANCE WITH MEDICATION REGIMEN Assessment/Plan 52 y/o F with PMH HTN, s/p R BKA (2017; Dr. aMnzo), HTN, HLD, DM, PAD, anxiety disorder, who presents to the ED c/o L foot pain over the past week. As per pt, a week ago, she suddenly developed 10/10, sharp pain and a "pressure like sensation" in her LLE, specifically her L foot. Pt states that the pain was a/w edema and erythema, and is worsened with weight-bearing. For this reason, pt went to [facility], however was recommended L BKA by Dr. Sifuentes. She left AMA, and came to [facility] for another opinion. Pt is requesting tx from Dr. Manzo, since he performed her R BKA - at this time, surgical intervention is not needed emergently. Pt states that ever since her recent trip to [place] two days ago, she has had diffuse chest pain a/w SOB, that came about when she discussed the BKA. She believes it is related to anxiety. During this time, pt also endorses diaphoresis and nausea with intermittent emesis. Denies DIAMOND, fever , chills, or changes in urinary or bowel function. called for right sided weakness/numbness and slurred speech, 8:30 AM (as per nurse lethargic) though this has improved later in day wbc did increase today ; CT HD : right IC subacute infarct r/o new stroke, no TPA as sx onset not clear check MRI MRA BRAIN , dopplers ASA, BP runs low, hold BP RX if SBP < 110 Dr Barnes
[2017-09-14] MEDS: oxyCODONE HCL 5 MG TABLET PO PRN (20:57)
[2017-09-14] MEDS ORDERED: INSULIN (NOVOLOG) ASPART 100 UNITS/ML 10ML VIAL ONE (21:45)
[2017-09-14] MEDS: QUEtiapine FUMARATE 100 MG TABLET (FP) PO SCH (22:00)
[2017-09-14 22:17] LABS: URINE APPEARANCE SLCLOUDY; URINE BILIRUBIN NEGATIVE (<2.0 mg/dL); URINE BLOOD NEGATIVE (NEGATIVE); URINE COLOR LTYELLOW; URINE GLUCOSE (UA) 1+ (NEGATIVE); URINE KETONE NEGATIVE (NEGATIVE); URINE LEUK ESTERASE NEGATIVE (NEGATIVE); URINE NITRITE NEGATIVE (NEGATIVE); URINE UROBILINOGEN NEGATIVE mg/dL (0.2-1.0)
[2017-09-14 22:24] LABS: URINE PROTEIN 3+ (NEGATIVE)
[2017-09-14] MEDS ORDERED: MAGNESIUM HYDROX 2400MG/30ML ORAL SUSPENSION 30 ML CUP PO ONE (22:42)
[2017-09-14 22:51] LABS: EPI CELLS FEW /HPF (FEW); URINE BACTERIA FEW /hpf (NONE SEEN); YEAST FEW
[2017-09-14] MEDS: NICOTINE 14 MG/24 HOURS TOPICAL PATCH TD SCH (23:33)
[2017-09-15] MEDS: PIPERACILLIN/TAZOB 3.375 GM 3.375 GM in DEXTROSE 5%-WATER - 50 ML IVPB SCH ×3 (02:16→17:13)
[2017-09-15] MEDS: oxyCODONE HCL 5 MG TABLET PO PRN ×2 (06:01→12:21)
[2017-09-15] MEDS: diphenhydrAMINE HCL 25 MG CAPSULE (FP) PO SCH ×3 (06:01→22:21)
[2017-09-15] MEDS: GABAPENTIN 300 MG CAPSULE (FP) PO SCH ×3 (06:01→22:21)
[2017-09-15] MEDS: INSULIN SLIDING SCALE (NOVOLOG) 1 VIAL SQ SCH ×4 (06:35→22:27)
[2017-09-15 06:39] LABS: HEMATOCRIT 30.3 % (32.4-45.2); HEMOGLOBIN 10.1 GM/dL (10.7-15.3); MCH 30.3 pg (25.7-33.7); MCHC 33.5 g/dl (32.0-36.0); MEAN CELL VOLUME 90.5 fl (80-96); MEAN PLT VOLUME 8.4 fl (7.5-11.1); PLATELET COUNT 502 K/MM3 (134-434); RBC 3.35 M/mm3 (3.60-5.2); WHITE BLOOD COUNT 7.9 K/mm3 (4.0-10.0)
[2017-09-15 07:05] LABS: ANION GAP 10 (8-16); BLOOD UREA NITROGEN 25 mg/dL (7-18); CALCIUM 7.5 mg/dL (8.5-10.1); CHLORIDE 109 mmol/L (98-107); CHOLESTEROL 210 mg/dL (50-200); CO2 25 mmol/L (21-32); CREATININE 1.8 mg/dL (0.55-1.02); GLUCOSE,RANDOM 96 mg/dL (74-106); POTASSIUM 4.8 mmol/L (3.5-5.1); SODIUM 144 mmol/L (136-145)
[2017-09-15] MEDS: SODIUM CHLORIDE 1,000 ML IV SCH ×2 (08:48→16:07)
[2017-09-15] MEDS ORDERED: PT OWN MED DRAWER 7, Y5N ONE (08:54)
[2017-09-15 09:02] LABS: HDL CHOLESTEROL 78 mg/dL (40-60); LDL CHOLESTEROL (ONLY SJRH) 115 mg/dL (5-100); TRIGLYCERIDES 111 mg/dL (35-160)
--- NOTE | 2017-09-15 09:18 | PN ---
Progress Note (short form) - Note Progress Note: Vascular Surgery Pt seen and examined. Comes in with 2 week history of left third toe gangrene. Went to [facility] where she was offered left BKA by Dr. Sifuentes. Neurology on case for recent slurring of speech. Arterial duplex done on admission shows left popliteral artery and tibial artery monophasic flow. Pt has a Cr of 1.8. Please hydrate to bring down. Pt will need angiogram. Can do via CO2 so that the pt does not get any contrast. Please clear from a medical and neurology standpoint. Can do CO2 angiogram on . Jose dillard DO
[2017-09-15] MEDS: FUROSEMIDE 20 MG TABLET (FP) PO SCH (10:10)
[2017-09-15] MEDS: HEPARIN NA (PORCINE) 5,000 UNITS/ML 1ML VIAL SQ SCH ×2 (11:10→22:21)
[2017-09-15] MEDS: HYDROCHLOROTHIAZIDE 12.5 MG CAPSULE (FP) PO SCH (11:11)
[2017-09-15] MEDS: cloNIDine HCL 0.1 MG TABLET PO SCH ×2 (11:11→22:22)
[2017-09-15] MEDS: ASPIRIN 81 MG CHEWABLE TABLETS PO SCH (11:11)
[2017-09-15] MEDS: INSULIN DETEMIR 100 UNITS/ML MDV SQ SCH (11:11)
[2017-09-15] MEDS: NICOTINE 14 MG/24 HOURS TOPICAL PATCH TD SCH (11:12)
[2017-09-15] MEDS: PARoxetine HCL 10 MG TABLET (FP) PO SCH (11:12)
[2017-09-15] MEDS: METOPROLOL TARTRATE 25 MG TABLET (FP) PO SCH ×2 (11:12→22:22)
[2017-09-15] MEDS: CLOPIDOGREL BISULFATE 75 MG TABLET (FP) PO SCH (11:12)
[2017-09-15] MEDS: amLODIPine BESYLATE 10 MG TABLET (FP) PO SCH (11:12)
[2017-09-15] MEDS: QUEtiapine FUMARATE 100 MG TABLET (FP) PO SCH ×2 (11:13→22:21)
[2017-09-15] MEDS: PANTOPRAZOLE 20 MG TABLET (FP) PO SCH (12:13)
[2017-09-15] MEDS ORDERED: TRIPLE LUMEN FLUSH 4 ML ML IVPUSH PRN (13:08)
--- NOTE | 2017-09-15 14:53 | PROC ---
Procedure Note Procedure: Called by patient's RN as they are unable to obtain peripheral IV access after multiple attempts. #20 angiocath placed into her right EJ. Aspirates and flushes easily. Patient tolerated procedure well. Line ok to use.
--- NOTE | 2017-09-15 16:47 | PN ---
Progress Note, Physician Chief Complaint: AWAKE ALERT FEELING BETTER TODAY A LARGE BAG OF POTATOE CHIPS AND DIP AT BEDSIDE NOT FOLLOWING HER DIABETIC/LOW SODIUM DIET " AT THIS POINT I DO NOT CARE" SHE STATES - Current Medication List Current Medications: Active Medications Acetaminophen (Tylenol -) 650 mg PO Q4H PRN PRN Reason: MODERATE PAIN Last Admin: 09/14/17 17:37 Dose: 650 mg Amlodipine Besylate (Norvasc -) 10 mg PO DAILY [facility] Last Admin: 09/15/17 11:12 Dose: 10 mg Aspirin (Asa -) 81 mg PO DAILY [facility] Last Admin: 09/15/17 11:11 Dose: 81 mg Clonidine (Catapres -) 0.1 mg PO BID [facility] Last Admin: 09/15/17 11:11 Dose: 0.1 mg Clopidogrel Bisulfate (Plavix -) 75 mg PO DAILY [facility] Last Admin: 09/15/17 11:12 Dose: 75 mg Diphenhydramine HCl (Benadryl -) 25 mg PO TID [facility] Last Admin: 09/15/17 16:06 Dose: 25 mg Furosemide (Lasix -) 20 mg PO DAILY [facility] Last Admin: 09/15/17 10:10 Dose: 20 mg Gabapentin (Neurontin -) 300 mg PO TID [facility] Last Admin: 09/15/17 16:06 Dose: 300 mg Heparin Sodium (Porcine) (Heparin -) 5,000 unit SQ BID [facility] Last Admin: 09/15/17 11:10 Dose: 5,000 unit Hydrochlorothiazide (Hctz -) 12.5 mg PO DAILY [facility] Last Admin: 09/15/17 11:11 Dose: 12.5 mg IV Flush (Triple Lumen Flush) 4 ml IVPUSH PRN PRN PRN Reason: Protocol Piperacillin Sod/Tazobactam (Sod 3.375 gm/ Dextrose) 50 mls @ 100 mls/hr IVPB Q8H-IV [facility] PRN Reason: Protocol Last Admin: 09/15/17 15:06 Dose: 100 mls/hr Sodium Chloride (Normal Saline -) 1,000 mls @ 100 mls/hr IV ASDIR [facility] Last Admin: 09/15/17 16:07 Dose: 100 mls/hr Insulin Aspart (Novolog Vial Sliding Scale -) 1 vial SQ ACHS [facility] PRN Reason: Protocol Last Admin: 09/15/17 16:13 Dose: Not Given Insulin Detemir (Levemir Vial) 16 units SQ AM [facility] Last Admin: 09/15/17 11:11 Dose: 16 units Metoprolol Tartrate (Lopressor -) 25 mg PO BID [facility] Last Admin: 09/15/17 11:12 Dose: 25 mg Nicotine (Nicoderm Patch -) 14 mg TD DAILY [facility] Last Admin: 09/15/17 11:12 Dose: 14 mg Oxycodone HCl (Roxicodone -) 5 mg PO Q6H PRN PRN Reason: PAIN LEVEL 6-10 Last Admin: 09/15/17 12:21 Dose: 5 mg Pantoprazole Sodium (Protonix -) 20 mg PO DAILY [facility] Last Admin: 09/15/17 12:13 Dose: 20 mg Paroxetine HCl (Paxil -) 10 mg PO DAILY [facility] Last Admin: 09/15/17 11:12 Dose: 10 mg Quetiapine Fumarate (Seroquel -) 200 mg PO BID [facility] Last Admin: 09/15/17 11:13 Dose: 200 mg - Objective Vital Signs: Vital Signs Temperature 97.2 F L 09/15/17 14:07 Pulse Rate 70 09/15/17 14:07 Respiratory Rate 16 09/15/17 14:07 Blood Pressure 128/51 09/15/17 14:07 O2 Sat by Pulse Oximetry (%) 98 09/15/17 10:00 Constitutional: Yes: No Distress Eyes: Yes: WNL HENT: Yes: WNL Neck: Yes: WNL Cardiovascular: Yes: WNL Respiratory: Yes: WNL Gastrointestinal: Yes: WNL Genitourinary: Yes: Incontinence Musculoskeletal: Yes: Muscle Weakness Extremities: Yes: Amputation Edema: Yes Peripheral Pulses WNL: Yes Integumentary: Yes: Other Wound/Incision: Yes: Clean/Dry, Other Neurological: Yes: Pre-Existing Deficit, Weakness ...Motor Strength: RLE Psychiatric: Yes: Other Labs: CBC, BMP 09/15/17 05:35 09/15/17 05:35 INR, PTT INR 0.97 (0.82-1.09) 09/10/17 13:25 Problem List - Problems (1) Poor compliance with medication Code(s): Z91.14 - PATIENT'S OTHER NONCOMPLIANCE WITH MEDICATION REGIMEN (2) Gangrene associated with diabetes mellitus Code(s): E11.52 - TYPE 2 DIABETES W DIABETIC PERIPHERAL ANGIOPATHY W GANGRENE (3) 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 Code(s): E10.610 - TYPE 1 DIABETES MELLITUS W DIABETIC NEUROPATHIC ARTHROPATHY (4) Anemia Code(s): D64.9 - ANEMIA, UNSPECIFIED (5) Tobacco dependence Code(s): F17.200 - NICOTINE DEPENDENCE, UNSPECIFIED, UNCOMPLICATED (6) 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
--- NOTE | 2017-09-15 18:25 | PN ---
Progress Note, Physician History of Present Illness: Much more awake and alert today C/O foot pain No c/o fever/ chills Afebrile WBC improved - Current Medication List Current Medications: Active Medications Acetaminophen (Tylenol -) 650 mg PO Q4H PRN PRN Reason: MODERATE PAIN Last Admin: 09/14/17 17:37 Dose: 650 mg Amlodipine Besylate (Norvasc -) 10 mg PO DAILY [facility] Last Admin: 09/15/17 11:12 Dose: 10 mg Aspirin (Asa -) 81 mg PO DAILY [facility] Last Admin: 09/15/17 11:11 Dose: 81 mg Atorvastatin Calcium (Lipitor -) 40 mg PO HS [facility] Clonidine (Catapres -) 0.1 mg PO BID [facility] Last Admin: 09/15/17 11:11 Dose: 0.1 mg Clopidogrel Bisulfate (Plavix -) 75 mg PO DAILY [facility] Last Admin: 09/15/17 11:12 Dose: 75 mg Diphenhydramine HCl (Benadryl -) 25 mg PO TID [facility] Last Admin: 09/15/17 16:06 Dose: 25 mg Furosemide (Lasix -) 20 mg PO DAILY [facility] Last Admin: 09/15/17 10:10 Dose: 20 mg Gabapentin (Neurontin -) 300 mg PO TID [facility] Last Admin: 09/15/17 16:06 Dose: 300 mg Heparin Sodium (Porcine) (Heparin -) 5,000 unit SQ BID [facility] Last Admin: 09/15/17 11:10 Dose: 5,000 unit Hydrochlorothiazide (Hctz -) 12.5 mg PO DAILY [facility] Last Admin: 09/15/17 11:11 Dose: 12.5 mg IV Flush (Triple Lumen Flush) 4 ml IVPUSH PRN PRN PRN Reason: Protocol Piperacillin Sod/Tazobactam (Sod 3.375 gm/ Dextrose) 50 mls @ 100 mls/hr IVPB Q8H-IV [facility] PRN Reason: Protocol Last Admin: 09/15/17 17:13 Dose: Not Given Sodium Chloride (Normal Saline -) 1,000 mls @ 100 mls/hr IV ASDIR [facility] Last Admin: 09/15/17 16:07 Dose: 100 mls/hr Insulin Aspart (Novolog Vial Sliding Scale -) 1 vial SQ ACHS [facility] PRN Reason: Protocol Last Admin: 09/15/17 16:13 Dose: Not Given Insulin Detemir (Levemir Vial) 16 units SQ AM [facility] Last Admin: 09/15/17 11:11 Dose: 16 units Metoprolol Tartrate (Lopressor -) 25 mg PO BID [facility] Last Admin: 09/15/17 11:12 Dose: 25 mg Nicotine (Nicoderm Patch -) 14 mg TD DAILY [facility] Last Admin: 09/15/17 11:12 Dose: 14 mg Oxycodone HCl (Roxicodone -) 5 mg PO Q6H PRN PRN Reason: PAIN LEVEL 6-10 Last Admin: 09/15/17 12:21 Dose: 5 mg Pantoprazole Sodium (Protonix -) 20 mg PO DAILY [facility] Last Admin: 09/15/17 12:13 Dose: 20 mg Paroxetine HCl (Paxil -) 10 mg PO DAILY [facility] Last Admin: 09/15/17 11:12 Dose: 10 mg Quetiapine Fumarate (Seroquel -) 200 mg PO BID [facility] Last Admin: 09/15/17 11:13 Dose: 200 mg - Objective Vital Signs: Vital Signs Temperature 97.9 F 09/15/17 18:15 Pulse Rate 73 09/15/17 18:15 Respiratory Rate 16 09/15/17 18:15 Blood Pressure 112/68 09/15/17 18:15 O2 Sat by Pulse Oximetry (%) 98 09/15/17 10:00 Constitutional: Yes: No Distress Eyes: Yes: Conjunctiva Clear Cardiovascular: Yes: Regular Rate and Rhythm, S1, S2 Respiratory: Yes: CTA Bilaterally Gastrointestinal: Yes: Normal Bowel Sounds, Soft Extremities: Yes: Other (+ dry gangrene L 3rd toe) Labs: CBC, BMP 09/15/17 05:35 09/15/17 05:35 INR, PTT INR 0.97 (0.82-1.09) 09/10/17 13:25 Assessment/Plan Leukocytosis- resolved Possible sepsis secondary to foot source ? CVA PVD S/P R BKA Azotemia Await cultures Continue empiric zosyn
[2017-09-15] MEDS ORDERED: INSULIN (NOVOLOG) ASPART 100 UNITS/ML 10ML VIAL ONE (22:16)
[2017-09-15] MEDS: ATORVASTATIN CA 40 MG TABLET (FP) PO SCH (22:21)
[2017-09-15] MEDS: ACETAMINOPHEN 325 MG TABLET (FP) PO PRN (22:22)
[2017-09-16] MEDS ORDERED: PT OWN MED DRAWER 7, Y5N ONE ×2 (01:12→11:07)
[2017-09-16] MEDS: PIPERACILLIN/TAZOB 3.375 GM 3.375 GM in DEXTROSE 5%-WATER - 50 ML IVPB SCH ×2 (01:12→10:30)
[2017-09-16] MEDS ORDERED: oxyCODONE HCL 5 MG TABLET PO PRN (04:52)
[2017-09-16] MEDS: ACETAMINOPHEN 325 MG TABLET (FP) PO PRN ×2 (04:58→23:14)
[2017-09-16] MEDS: diphenhydrAMINE HCL 25 MG CAPSULE (FP) PO SCH ×2 (06:49→14:49)
[2017-09-16] MEDS: GABAPENTIN 300 MG CAPSULE (FP) PO SCH ×3 (06:49→22:36)
[2017-09-16] MEDS: INSULIN DETEMIR 100 UNITS/ML MDV SQ SCH (06:49)
[2017-09-16] MEDS: INSULIN SLIDING SCALE (NOVOLOG) 1 VIAL SQ SCH ×4 (06:50→22:35)
--- NOTE | 2017-09-16 08:54 | PN ---
Progress Note (short form) - Note Progress Note: Vascular Surgery Pt seen and examined. Left foot toe gangrene. US done yest shows 75% stenosis of below knee popliteal artery with tibial disease. Will do CO2 angiogram amna NPO past midnight. Jose Manzo DO
--- NOTE | 2017-09-16 10:45 | PN ---
Progress Note (short form) - Note Progress Note: 52 y/o F with PMH HTN, s/p R BKA (2017; Dr. Manzo), HTN, HLD, DM, PAD, anxiety disorder, who presents to the ED c/o L foot pain over the past week. As per pt, a week ago, she suddenly developed 10/10, sharp pain and a "pressure like sensation" in her LLE, specifically her L foot. Pt states that the pain was a/w edema and erythema, and is worsened with weight-bearing. For this reason, pt went to [facility], however was recommended L BKA by Dr. Sifuentes. She left A, and came to [facility] for another opinion. Pt is requesting tx from Dr. Manzo, since he performed her R BKA - at this time, surgical intervention is not needed emergently. Pt states that ever since her recent trip to [place] two days ago, she has had diffuse chest pain a/w SOB, that came about when she discussed the BKA. She believes it is related to anxiety. During this time, pt also endorses diaphoresis and nausea with intermittent emesis. Denies DIAMOND, fever , chills, or changes in urinary or bowel function. called for right sided weakness/numbness and slurred speech, 8:30 AM (as per nurse lethargic) though this has improved later in day wbc did increase today ; CT HD : right IC subacute infarct FU : no new sx MRI reviewed suspicious for embolic events, +Acute infarcts Impression: 1. Incomplete noncontrast MRI of the brain. Patient terminated exam prematurely. 2. Acute infarction centered in the posterior limb of the right internal capsule extending towards the globus pallidus and punctate acute infarct in the left frontal subcortical white matter. These may be embolic. 3. No significant mass effects. No hydrocephalus. 4. Mild chronic microvascular ischemic changes in the periventricular white matter. 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 Medical History Cardio/Vascular: Yes: HTN, Other (PAD) Pulmonary: Yes: Asthma Gastrointestinal: Yes: Pancreatitis Hepatobiliary: Yes: Other (ALCOHOLISM STOPPED ONE YEAR AGO) Renal/: Yes: Other (PYLEONEPHRITIS RECENTLY AT [facility]) ...: No Endocrine: Yes: Diabetes Mellitus - Past Surgical History Past Surgical History: Yes: Cholecystectomy - Alcohol/Substance Use Hx Alcohol Use: No - Smoking History Smoking history: Former smoker Have you smoked in the past 12 months: No Aproximately how many cigarettes per day: 10 Home Medications - Allergies Allergies/Adverse Reactions: Allergies Allergy/AdvReac Type Severity Reaction Status Date / Time No Known Allergies Allergy Verified 09/10/17 10:47 - Home Medications Home Medications: Ambulatory Orders Aspirin [ASA -] 81 mg PO DAILY 05/04/15 Acetaminophen [Tylenol .Regular Strength -] 650 mg PO Q6H PRN #0 tablet Gabapentin [Neurontin -] 300 mg PO TID 09/08/16 Hydrochlorothiazide [Hctz -] 12.5 mg PO DAILY cap 09/08/16 Amlodipine Besylate [Norvasc -] 10 mg PO DAILY 09/10/17 Clopidogrel Bisulfate [Plavix -] 75 mg PO DAILY 09/10/17 Diphenhydramine HCl [Benadryl Capsule -] 25 mg PO Q8H 09/10/17 Furosemide [Lasix -] 20 mg PO DAILY 09/10/17 Insulin (Novolog) [Novolog Flexpen -] 12 units SQ TID 09/10/17 Paroxetine HCl [Paxil -] 10 mg PO DAILY 09/10/17 Quetiapine Fumarate [Seroquel -] 200 mg PO BID 09/10/17 cloNIDine HCL [Catapres -] 0.1 mg PO BID 09/10/17 Insulin Detemir [Levemir Flextouch] 100 unit SQ ASDIR #1 insuln.pen 09/12/17 Metoprolol Tartrate [Lopressor -] 25 mg PO BID #60 tablet 09/12/17 Pen Needle, Diabetic [Bd Ultra-Fine Pen Needle] 1 each MC BID #100 dis.needle Physical Exam-Neuro Vital Signs: CBCD WBC 7.9 K/mm3 (4.0-10.0) D 09/15/17 05:35 RBC 3.35 M/mm3 (3.60-5.2) L 09/15/17 05:35 Hgb 10.1 GM/dL (10.7-15.3) L 09/15/17 05:35 Hct 30.3 % (32.4-45.2) L 09/15/17 05:35 MCV 90.5 fl (80-96) 09/15/17 05:35 MCHC 33.5 g/dl (32.0-36.0) 09/15/17 05:35 RDW 15.0 % (11.6-15.6) 09/15/17 05:35 Plt Count 502 K/MM3 (134-434) H 09/15/17 05:35 MPV 8.4 fl (7.5-11.1) 09/15/17 05:35 CMP Sodium 144 mmol/L (136-145) 09/15/17 05:35 Potassium 4.8 mmol/L (3.5-5.1) 09/15/17 05:35 Chloride 109 mmol/L (98-107) H 09/15/17 05:35 Carbon Dioxide 25 mmol/L (21-32) 09/15/17 05:35 Anion Gap 10 (8-16) 09/15/17 05:35 BUN 25 mg/dL (7-18) H 09/15/17 05:35 Creatinine 1.8 mg/dL (0.55-1.02) H 09/15/17 05:35 Creat Clearance w eGFR 33.59 (>60) 09/14/17 06:45 Calcium 7.5 mg/dL (8.5-10.1) L 09/15/17 05:35 Total Bilirubin 0.2 mg/dL (0.2-1.0) D 09/14/17 06:45 AST 18 U/L (15-37) 09/14/17 06:45 ALT 18 U/L (12-78) 09/14/17 06:45 Alkaline Phosphatase 324 U/L (45-117) H 09/14/17 06:45 Total Protein 3.7 g/dl (6.4-8.2) L 09/14/17 06:45 Albumin 1.0 g/dl (3.4-5.0) L 09/14/17 06:45 Constitutional: Yes: No Distress Labs: CBC, BMP Vital Signs Temperature 98.5 F 09/16/17 06:00 Pulse Rate 78 09/16/17 06:00 Respiratory Rate 17 09/16/17 06:00 Blood Pressure 120/79 09/16/17 06:00 O2 Sat by Pulse Oximetry (%) 93 L 09/15/17 21:00 - Neuro Exam Level Of Consciousness: Yes: Alert (awake, alert, EOMI, no facila, + dysarthia, follows 3 steps, no clear exe weakness R BKA); left foot D3 nectrotic ; no focal weakness LLE ) NIH Stroke Scale - Last Known Well Date/Time & Onset Date Last Known Well: 09/14/17 Time Last Known Well: 08:30 - Initial Evaluation Level of consciousness: Alert Ask patient the month and their age: Answers both correctly Ask patient to open & close eyes; make fist and let go: Obeys both correctly Best gaze (horizontal eye movement): Normal Visual field testing: No visual field loss Facial paresis (Show teeth/raise eyebrows/close eyes tight): Normal symmetrical movement Motor Function: Left Arm: Normal Motor Function: Right Arm: Normal (extends arm 90 (or 45) degrees for 10 seconds without drift Motor Function: Left Leg: Normal (extends leg 30 degrees for 5 seconds without drift) Motor Function: Right Leg: Normal (extends leg 30 degrees for 5 seconds without drift) Limb Ataxia: No ataxia Sensory(Use pinprick test arms,legs,trunk,face/side to side): Normal Best language (Describe picture, name items, read sentences): No Aphasia Dysarthria (read several words): Mild to moderate slurring of words Extinction and Inattention: No abnormality - Total Score NIH Stroke Scale Score: 1 Problem List - Problems (1) CVA (cerebrovascular accident) Code(s): I63.9 - CEREBRAL INFARCTION, UNSPECIFIED (2) Gangrene associated with diabetes mellitus Code(s): E11.52 - TYPE 2 DIABETES W DIABETIC PERIPHERAL ANGIOPATHY W GANGRENE (3) Poor compliance with medication Code(s): Z91.14 - PATIENT'S OTHER NONCOMPLIANCE WITH MEDICATION REGIMEN Assessment/Plan 52 y/o F with PMH HTN, s/p R BKA (2017; Dr. Manzo), HTN, HLD, DM, PAD, anxiety disorder, who presents to the ED c/o L foot pain over the past week. As per pt, a week ago, she suddenly developed 10/10, sharp pain and a "pressure like sensation" in her LLE, specifically her L foot. Pt states that the pain was a/w edema and erythema, and is worsened with weight-bearing. For this reason, pt went to [facility], however was recommended L BKA by Dr. Sifuentes. She left [facility], and came to [facility] for another opinion. Pt is requesting tx from Dr. Manzo, since he performed her R BKA - at this time, surgical intervention is not needed emergently. Pt states that ever since her recent trip to [place] two days ago, she has had diffuse chest pain a/w SOB, that came about when she discussed the BKA. She believes it is related to anxiety. During this time, pt also endorses diaphoresis and nausea with intermittent emesis. Denies DIAMOND, fever , chills, or changes in urinary or bowel function. + embolic BL tiny infarcts--likely embolic, recent ECHO-no vegetations cardiac CUADRA with holter Ok to heparin from neuro standpoint Dr Barnes Problem List - Problems (1) CVA (cerebrovascular accident) Code(s): I63.9 - CEREBRAL INFARCTION, UNSPECIFIED (2) Gangrene associated with diabetes mellitus Code(s): E11.52 - TYPE 2 DIABETES W DIABETIC PERIPHERAL ANGIOPATHY W GANGRENE (3) Poor compliance with medication Code(s): Z91.14 - PATIENT'S OTHER NONCOMPLIANCE WITH MEDICATION REGIMEN
--- NOTE | 2017-09-16 11:02 | PN ---
Progress Note, Physician Chief Complaint: NOTIFIED BY NURSE THE PATIENT RIPPED OUT HER CENTRAL LINE IV ACCESS FROM HER NECK PATIENT IN BED NOW AWAKE ALERT HAVING A FULL DISCUSSION WITH ME SHE IS UNAWARE OF HER ACTIONS OF RIPPING IV OUT I DISCUSSED WITH HER THAT I WOULD NEED NEUROLOGY CLEARANCE PRIOR TO VASCULAR SURGERY WITH NEW CVA OCCURRENCE 2 DAYS AGO. - Current Medication List Current Medications: Active Medications Acetaminophen (Tylenol -) 650 mg PO Q4H PRN PRN Reason: MODERATE PAIN Last Admin: 09/16/17 04:58 Dose: 650 mg Amlodipine Besylate (Norvasc -) 10 mg PO DAILY [facility] Last Admin: 09/15/17 11:12 Dose: 10 mg Aspirin (Asa -) 81 mg PO DAILY [facility] Last Admin: 09/15/17 11:11 Dose: 81 mg Atorvastatin Calcium (Lipitor -) 40 mg PO HS [facility] Last Admin: 09/15/17 22:21 Dose: 40 mg Clonidine (Catapres -) 0.1 mg PO BID [facility] Last Admin: 09/15/17 22:22 Dose: Not Given Clopidogrel Bisulfate (Plavix -) 75 mg PO DAILY [facility] Last Admin: 09/15/17 11:12 Dose: 75 mg Diphenhydramine HCl (Benadryl -) 25 mg PO TID [facility] Last Admin: 09/16/17 06:49 Dose: 25 mg Furosemide (Lasix -) 20 mg PO DAILY [facility] Last Admin: 09/15/17 10:10 Dose: 20 mg Gabapentin (Neurontin -) 300 mg PO TID [facility] Last Admin: 09/16/17 06:49 Dose: 300 mg Heparin Sodium (Porcine) (Heparin -) 5,000 unit SQ BID [facility] Last Admin: 09/15/17 22:21 Dose: 5,000 unit Hydrochlorothiazide (Hctz -) 12.5 mg PO DAILY [facility] Last Admin: 09/15/17 11:11 Dose: 12.5 mg IV Flush (Triple Lumen Flush) 4 ml IVPUSH PRN PRN PRN Reason: Protocol Piperacillin Sod/Tazobactam (Sod 3.375 gm/ Dextrose) 50 mls @ 100 mls/hr IVPB Q8H-IV [facility] PRN Reason: Protocol Last Admin: 09/16/17 01:12 Dose: 100 mls/hr Insulin Aspart (Novolog Vial Sliding Scale -) 1 vial SQ ACHS [facility] PRN Reason: Protocol Last Admin: 09/16/17 06:50 Dose: Not Given Insulin Detemir (Levemir Vial) 16 units SQ AM [facility] Last Admin: 09/16/17 06:49 Dose: 16 units Metoprolol Tartrate (Lopressor -) 25 mg PO BID [facility] Last Admin: 09/15/17 22:22 Dose: Not Given Nicotine (Nicoderm Patch -) 14 mg TD DAILY [facility] Last Admin: 09/15/17 11:12 Dose: 14 mg Oxycodone HCl (Roxicodone -) 5 mg PO Q6H PRN PRN Reason: PAIN LEVEL 6-10 Last Admin: 09/16/17 04:58 Dose: 5 mg Pantoprazole Sodium (Protonix -) 20 mg PO DAILY [facility] Last Admin: 09/15/17 12:13 Dose: 20 mg Paroxetine HCl (Paxil -) 10 mg PO DAILY [facility] Last Admin: 09/15/17 11:12 Dose: 10 mg Quetiapine Fumarate (Seroquel -) 200 mg PO BID [facility] Last Admin: 09/15/17 22:21 Dose: 200 mg - Objective Vital Signs: Vital Signs Temperature 98.5 F 09/16/17 06:00 Pulse Rate 78 09/16/17 06:00 Respiratory Rate 17 09/16/17 06:00 Blood Pressure 120/79 09/16/17 06:00 O2 Sat by Pulse Oximetry (%) 93 L 09/15/17 21:00 Constitutional: Yes: No Distress Eyes: Yes: WNL HENT: Yes: WNL Neck: Yes: WNL Cardiovascular: Yes: WNL Respiratory: Yes: WNL Gastrointestinal: Yes: WNL Genitourinary: Yes: Incontinence Musculoskeletal: Yes: Muscle Pain Extremities: Yes: Amputation, Deformity Edema: No Peripheral Pulses WNL: Yes Integumentary: Yes: Other Wound/Incision: Yes: Dressing Dry and Intact Neurological: Yes: Pre-Existing Deficit ...Motor Strength: LLE, RLE Psychiatric: Yes: WNL Labs: CBC, BMP 09/15/17 05:35 09/15/17 05:35 INR, PTT INR 0.97 (0.82-1.09) 09/10/17 13:25 Problem List - Problems (1) Poor compliance with medication Code(s): Z91.14 - PATIENT'S OTHER NONCOMPLIANCE WITH MEDICATION REGIMEN (2) Gangrene associated with diabetes mellitus Code(s): E11.52 - TYPE 2 DIABETES W DIABETIC PERIPHERAL ANGIOPATHY W GANGRENE (3) 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 Code(s): E10.610 - TYPE 1 DIABETES MELLITUS W DIABETIC NEUROPATHIC ARTHROPATHY (4) Anemia Code(s): D64.9 - ANEMIA, UNSPECIFIED (5) Tobacco dependence Code(s): F17.200 - NICOTINE DEPENDENCE, UNSPECIFIED, UNCOMPLICATED (6) 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
[2017-09-16] MEDS: cloNIDine HCL 0.1 MG TABLET PO SCH ×2 (11:12→22:36)
[2017-09-16] MEDS: ASPIRIN 81 MG CHEWABLE TABLETS PO SCH (11:12)
[2017-09-16] MEDS: HYDROCHLOROTHIAZIDE 12.5 MG CAPSULE (FP) PO SCH (11:12)
[2017-09-16] MEDS: METOPROLOL TARTRATE 25 MG TABLET (FP) PO SCH ×2 (11:13→22:36)
[2017-09-16] MEDS: HEPARIN NA (PORCINE) 5,000 UNITS/ML 1ML VIAL SQ SCH ×2 (11:13→22:35)
[2017-09-16] MEDS: FUROSEMIDE 20 MG TABLET (FP) PO SCH (11:13)
[2017-09-16] MEDS: PARoxetine HCL 10 MG TABLET (FP) PO SCH (11:14)
[2017-09-16] MEDS: PANTOPRAZOLE 20 MG TABLET (FP) PO SCH (11:14)
[2017-09-16] MEDS: NICOTINE 14 MG/24 HOURS TOPICAL PATCH TD SCH (11:14)
[2017-09-16] MEDS: amLODIPine BESYLATE 10 MG TABLET (FP) PO SCH (11:14)
[2017-09-16] MEDS: QUEtiapine FUMARATE 100 MG TABLET (FP) PO SCH ×2 (11:15→23:00)
[2017-09-16] MEDS: CLOPIDOGREL BISULFATE 75 MG TABLET (FP) PO SCH (11:26)
--- NOTE | 2017-09-16 11:49 | PN ---
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 Incomplete noncontrast MRI of the brain. Patient terminated exam prematurely. 2. Acute infarction centered in the posterior limb of the right internal capsule extending towards the globus pallidus and punctate acute infarct in the left frontal subcortical white matter. These may be embolic. 3. No significant mass effects. No hydrocephalus. 4. Mild chronic microvascular ischemic changes in the periventricular white matter. Selected Entries 09/16/17 09/16/17 09/16/17 02:00 06:00 10:00 Breakfast Temperature 97.0 F L 98.5 F 98.5 F 09/16/17 10:03 Breakfast 100% Temperature Laboratory Tests 09/15/17 05:35 WBC 7.9 D On reg diet/thin liquid. Letyhargic but arousable. Received Seroquel, benydryl and pain meds this am. Speech imprecise secCVA and possibly medications as well. Tolerating diet.
--- NOTE | 2017-09-16 11:56 | PN ---
Progress Note, Physician History of Present Illness: awake and alert no c/o foot pain No c/o fever/ chills Afebrile WBC improved BC no growth - Current Medication List Current Medications: Active Medications Acetaminophen (Tylenol -) 650 mg PO Q4H PRN PRN Reason: MODERATE PAIN Last Admin: 09/16/17 04:58 Dose: 650 mg Amlodipine Besylate (Norvasc -) 10 mg PO DAILY [facility] Last Admin: 09/16/17 11:14 Dose: 10 mg Aspirin (Asa -) 81 mg PO DAILY [facility] Last Admin: 09/16/17 11:12 Dose: 81 mg Atorvastatin Calcium (Lipitor -) 40 mg PO HS [facility] Last Admin: 09/15/17 22:21 Dose: 40 mg Clonidine (Catapres -) 0.1 mg PO BID [facility] Last Admin: 09/16/17 11:12 Dose: 0.1 mg Clopidogrel Bisulfate (Plavix -) 75 mg PO DAILY [facility] Last Admin: 09/16/17 11:26 Dose: 75 mg Diphenhydramine HCl (Benadryl -) 25 mg PO TID [facility] Last Admin: 09/16/17 06:49 Dose: 25 mg Furosemide (Lasix -) 20 mg PO DAILY [facility] Last Admin: 09/16/17 11:13 Dose: 20 mg Gabapentin (Neurontin -) 300 mg PO TID [facility] Last Admin: 09/16/17 06:49 Dose: 300 mg Heparin Sodium (Porcine) (Heparin -) 5,000 unit SQ BID [facility] Last Admin: 09/16/17 11:13 Dose: 5,000 unit Hydrochlorothiazide (Hctz -) 12.5 mg PO DAILY [facility] Last Admin: 09/16/17 11:12 Dose: 12.5 mg IV Flush (Triple Lumen Flush) 4 ml IVPUSH PRN PRN PRN Reason: Protocol Piperacillin Sod/Tazobactam (Sod 3.375 gm/ Dextrose) 50 mls @ 100 mls/hr IVPB Q8H-IV [facility] PRN Reason: Protocol Last Admin: 09/16/17 10:30 Dose: Not Given Insulin Aspart (Novolog Vial Sliding Scale -) 1 vial SQ ACHS [facility] PRN Reason: Protocol Last Admin: 09/16/17 11:16 Dose: Not Given Insulin Detemir (Levemir Vial) 16 units SQ AM [facility] Last Admin: 09/16/17 06:49 Dose: 16 units Metoprolol Tartrate (Lopressor -) 25 mg PO BID [facility] Last Admin: 09/16/17 11:13 Dose: 25 mg Nicotine (Nicoderm Patch -) 14 mg TD DAILY [facility] Last Admin: 09/16/17 11:14 Dose: 14 mg Oxycodone HCl (Roxicodone -) 5 mg PO Q6H PRN PRN Reason: PAIN LEVEL 6-10 Last Admin: 09/16/17 04:58 Dose: 5 mg Pantoprazole Sodium (Protonix -) 20 mg PO DAILY [facility] Last Admin: 09/16/17 11:14 Dose: 20 mg Paroxetine HCl (Paxil -) 10 mg PO DAILY [facility] Last Admin: 09/16/17 11:14 Dose: 10 mg Quetiapine Fumarate (Seroquel -) 200 mg PO BID [facility] Last Admin: 09/16/17 11:15 Dose: 200 mg - Objective Vital Signs: Vital Signs Temperature 98.5 F 09/16/17 10:00 Pulse Rate 79 09/16/17 10:00 Respiratory Rate 18 09/16/17 10:00 Blood Pressure 142/68 09/16/17 10:00 O2 Sat by Pulse Oximetry (%) 93 L 09/15/17 21:00 Constitutional: Yes: No Distress Eyes: Yes: Conjunctiva Clear Cardiovascular: Yes: Regular Rate and Rhythm, S1, S2 Respiratory: Yes: CTA Bilaterally Gastrointestinal: Yes: Normal Bowel Sounds, Soft. No: Tenderness Extremities: Yes: Other (+ dry gangrene L 3rd toe) Edema: Yes Labs: CBC, BMP 09/15/17 05:35 09/15/17 05:35 INR, PTT INR 0.97 (0.82-1.09) 09/10/17 13:25 Assessment/Plan Leukocytosis- resolved Possible sepsis secondary to foot source ? CVA PVD S/P R BKA Azotemia + Urine c/s Pseudomonas ? contaminant/ colonizer Cultures no growth For angiogram Substitute po levaquin
[2017-09-16] MEDS ORDERED: SODIUM CHLORIDE 1,000 ML IV STA (16:43)
[2017-09-16] MEDS ORDERED: diphenhydrAMINE HCL 25 MG CAPSULE (FP) PO PRN (16:45)
--- NOTE | 2017-09-16 16:46 | RAPID ---
Physical Examination Vital Signs: Vital Signs BP- 96/54 HR- 71 SPO2- 86% Findings/Remarks: Rapid Response called overhead. Patient found to be hypoxic to 86%. 1 hour prior , patient's glucose was in the 30's. Glucose at this time is 156. Physical Exam: GEN: Lethargic, unarousable, Responds to sternal rub, no response to some commands. CV: S1, S2 RRR Lungs: CTAB Neuro: Unable to perform 2/2 to lethargy. 1+ reflexes in b/l UE. PEERL. Able to wiggle toes. Labs: CBC, BMP 09/15/17 05:35 09/15/17 05:35 Rapid Response - Rapid Response Assessment: ASSESSMENT: HYPOXIA HYPOTENSION RECENT ACUTE CVA PLAN: PATIENT PLACED ON VENTI CBC CMP CXR ABG EKG CARDIAC PROFILE 1L BOLUS NS HEAD CT JEREMIE MADE PRN PCP CALLED TRANSFER TO ICU WILL CONTINUE TO MONITOR
[2017-09-16 17:00] LABS: ARTERIAL BLD GAS O2 SATURATION 96.4 % (90-98.9); ARTERIAL BLOOD GAS BASE EXCESS -4.5 meq/l (-2-2); ARTERIAL BLOOD GAS PCO2 38.6 mmHg (35-45); ARTERIAL BLOOD GAS pH 7.34 (7.35-7.45)
[2017-09-16 17:10] LABS: ALLENS TEST POSITIVE
[2017-09-16 17:24] LABS: BASO % 0.3 % (0-2.0); EOS % 2.4 % (0-4.5); HEMATOCRIT 28.7 % (32.4-45.2); HEMOGLOBIN 9.6 GM/dL (10.7-15.3); LYMPH % 12.5 % (8-40); MCH 30.4 pg (25.7-33.7); MCHC 33.4 g/dl (32.0-36.0); MEAN PLT VOLUME 8.3 fl (7.5-11.1); MONO % 6.3 % (3.8-10.2); NEUT % 78.5 % (42.8-82.8); PLATELET COUNT 502 K/MM3 (134-434); RBC 3.15 M/mm3 (3.60-5.2); RDW 14.9 % (11.6-15.6); WHITE BLOOD COUNT 10.7 K/mm3 (4.0-10.0)
[2017-09-16 17:51] LABS: ALBUMIN 1.1 g/dl (3.4-5.0); ANION GAP 9 (8-16); BILIRUBIN,TOTAL 0.1 mg/dL (0.2-1.0); BLOOD UREA NITROGEN 27 mg/dL (7-18); CALCIUM 7.5 mg/dL (8.5-10.1); CHLORIDE 112 mmol/L (98-107); CO2 22 mmol/L (21-32); CREATININE 1.9 mg/dL (0.55-1.02); GLUCOSE,RANDOM 161 mg/dL (74-106); MAGNESIUM 2.5 mg/dL (1.8-2.4); PHOSPHOROUS 4.7 mg/dL (2.5-4.9); POTASSIUM 4.8 mmol/L (3.5-5.1); SGOT/AST 24 U/L (15-37); SGPT/ALT 20 U/L (12-78); SODIUM 143 mmol/L (136-145); TOT PROT 3.8 g/dl (6.4-8.2)
[2017-09-16 17:52] LABS: ALK PHOS 317 U/L (45-117)
--- NOTE | 2017-09-16 19:00 | CONSULT ---
Consultation: REQUESTING PROVIDER: CONSULT REQUEST: We have been asked to medically evaluate this patient for hypoxia/hypotension (both resolved now). HISTORY OF PRESENT ILLNESS: 52F with PMH of DM, htn, hld, PAD, s/p Right BKA (by Dr. Manzo in 2017), anxiety disorder, presenting with Left foot pain, found to have acute/subacute CVA on Head CT. Angioplasty of Left LE is scheduled for tomorrow with Dr. Manzo. Blood glucose dipped to 34 at 3pm this afternoon. Pt given orange juice with sugar, repeat BGM 88 at 3:30pm. Pt remained difficult to arouse, however, on painful stimuli pt responded "Stop doing that, I hear you" per nursing notes. Pt oxygen saturation 89% on 3L nasal cannula and pt only responsive (open eyes) to sternal rub, prompting Rapid Response to be called for lethargy and hypoxia. NS 1 L bolus given, labs and Head CT ordered. Pt transferred to ICU. Pt remains lethargic and/or declining to participate in assessment. Pt shook head yes/no to answer some questions. Pt denies pain, fever, chills. REVIEW OF SYSTEMS: CONSTITUTIONAL: Absent: fever, chills, diaphoresis HEENT: Absent: rhinorrhea, nasal congestion, throat pain, ear pain, eye pain CARDIOVASCULAR: Absent: chest pain, irregular heart rate, peripheral edema RESPIRATORY: Absent: cough, shortness of breath, orthopnea, wheezing, stridor GASTROINTESTINAL: Absent: abdominal pain, abdominal distension, nausea, vomiting, diarrhea, constipation GENITOURINARY: Absent: dysuria, flank pain MUSCULOSKELETAL: Absent: myalgia, arthralgia, joint swelling, back pain, neck pain SKIN: Absent: rash, itching, pallor HEMATOLOGIC/IMMUNOLOGIC: Absent: easy bleeding, easy bruising, lymphadenopathy, frequent infections NEUROLOGIC: Absent: headache, focal weakness or paresthesias PHYSICAL EXAMINATION Vital Signs - 24 hr 09/15/17 09/15/17 09/15/17 18:15 21:00 22:00 Temperature 97.9 F 98.2 F Pulse Rate 73 70 Respiratory 16 16 17 Rate Blood Pressure 112/68 107/68 O2 Sat by Pulse 93 L Oximetry (%) 09/16/17 09/16/17 09/16/17 02:00 06:00 09:00 Temperature 97.0 F L 98.5 F Pulse Rate 68 78 Respiratory 17 17 Rate Blood Pressure 95/46 120/79 O2 Sat by Pulse 96 Oximetry (%) 09/16/17 09/16/17 09/16/17 10:00 14:05 17:44 Temperature 98.5 F 97.6 F Pulse Rate 79 78 Respiratory 18 16 20 Rate Blood Pressure 142/68 132/64 124/67 O2 Sat by Pulse Oximetry (%) GENERAL: Lethargic, declining to participate for the most part. Shook head yes/ no to answer questions without opening eyes. HEAD: Normal with no signs of trauma. EYES: Pupils equal, round and reactive to light, sclera anicteric, conjunctiva clear. LUNGS: Breath sounds equal, clear to auscultation bilaterally. No accessory muscle use. HEART: Regular rate and rhythm, normal S1 and S2 without murmur, rub or gallop. ABDOMEN: Soft, nontender, not distended, normoactive bowel sounds, no guarding. LOWER EXTREMITIES: Left LE: 3rd toe gangrenous. No pulses appreciated, but capillary refill appreciated. Right BKA. No calf tenderness. No peripheral edema. NEUROLOGICAL: No facial droop. Pt declined this part of assessment, unable to assess. Laboratory Results - last 24 hr 09/15/17 09/16/17 09/16/17 22:20 06:49 11:10 WBC RBC Hgb Hct MCV MCH MCHC RDW Plt Count MPV Neutrophils % Lymphocytes % Monocytes % Eosinophils % Basophils % Anticoagulation Therapy Puncture Site ABG pH ABG pCO2 at Pt Temp ABG pO2 at Pt Temp ABG HCO3 ABG O2 Sat (Measured) ABG O2 Content ABG Base Excess Steve Test O2 Delivery Device Oxygen Flow Rate Vent Mode Vent Rate Mechanical Rate Pressure Support Vent Sodium Potassium Chloride Carbon Dioxide Anion Gap BUN Creatinine Creat Clearance w eGFR POC Glucometer 237 154 122 Random Glucose Calcium Phosphorus Magnesium Total Bilirubin AST ALT Alkaline Phosphatase Creatine Kinase Troponin I Total Protein Albumin 09/16/17 09/16/17 09/16/17 14:56 15:16 15:35 WBC RBC Hgb Hct MCV MCH MCHC RDW Plt Count MPV Neutrophils % Lymphocytes % Monocytes % Eosinophils % Basophils % Anticoagulation Therapy Puncture Site ABG pH ABG pCO2 at Pt Temp ABG pO2 at Pt Temp ABG HCO3 ABG O2 Sat (Measured) ABG O2 Content ABG Base Excess Steve Test O2 Delivery Device Oxygen Flow Rate Vent Mode Vent Rate Mechanical Rate Pressure Support Vent Sodium Potassium Chloride Carbon Dioxide Anion Gap BUN Creatinine Creat Clearance w eGFR POC Glucometer 34 62 88 Random Glucose Calcium Phosphorus Magnesium Total Bilirubin AST ALT Alkaline Phosphatase Creatine Kinase Troponin I Total Protein Albumin 09/16/17 09/16/17 09/16/17 16:03 16:45 16:45 WBC RBC Hgb Hct MCV MCH MCHC RDW Plt Count MPV Neutrophils % Lymphocytes % Monocytes % Eosinophils % Basophils % Anticoagulation Therapy No Result Required. Puncture Site Right radial ABG pH 7.34 L ABG pCO2 at Pt Temp 38.6 ABG pO2 at Pt Temp 89.0 ABG HCO3 20.3 L ABG O2 Sat (Measured) 96.4 ABG O2 Content 13.5 L ABG Base Excess -4.5 L Steve Test Positive O2 Delivery Device Venti-mask Oxygen Flow Rate 50 Vent Mode No Result Required. Vent Rate No Result Required. Mechanical Rate No Result Required. Pressure Support Vent No Result Required. Sodium Potassium Chloride Carbon Dioxide Anion Gap BUN Creatinine Creat Clearance w eGFR POC Glucometer 140 157 Random Glucose Calcium Phosphorus Magnesium Total Bilirubin AST ALT Alkaline Phosphatase Creatine Kinase Troponin I Total Protein Albumin 09/16/17 09/16/17 09/16/17 17:00 17:00 17:00 WBC 10.7 H D RBC 3.15 L Hgb 9.6 L Hct 28.7 L MCV 91.0 MCH 30.4 MCHC 33.4 RDW 14.9 Plt Count 502 H MPV 8.3 Neutrophils % 78.5 Lymphocytes % 12.5 D Monocytes % 6.3 Eosinophils % 2.4 D Basophils % 0.3 Anticoagulation Therapy Puncture Site ABG pH ABG pCO2 at Pt Temp ABG pO2 at Pt Temp ABG HCO3 ABG O2 Sat (Measured) ABG O2 Content ABG Base Excess Steve Test O2 Delivery Device Oxygen Flow Rate Vent Mode Vent Rate Mechanical Rate Pressure Support Vent Sodium 143 Potassium 4.8 Chloride 112 H Carbon Dioxide 22 Anion Gap 9 BUN 27 H Creatinine 1.9 H Creat Clearance w eGFR 27.55 POC Glucometer Random Glucose 161 H Calcium 7.5 L Phosphorus 4.7 Magnesium 2.5 H Total Bilirubin 0.1 L D AST 24 ALT 20 Alkaline Phosphatase 317 H Creatine Kinase 62 Troponin I < 0.02 Total Protein 3.8 L Albumin 1.1 L Active Medications Generic Name Dose Route Start Last Admin Trade Name Freq PRN Reason Stop Dose Admin Acetaminophen 650 mg 09/10/17 20:28 09/16/17 04:58 Tylenol - PO 650 mg Q4H PRN Administration MODERATE PAIN Amlodipine Besylate 10 mg 09/11/17 10:00 09/16/17 11:14 Norvasc - PO 10 mg DAILY [facility] Administration Aspirin 81 mg 09/11/17 10:00 09/16/17 11:12 Asa - PO 81 mg DAILY [facility] Administration Atorvastatin Calcium 40 mg 09/15/17 22:00 09/15/17 22:21 Lipitor - PO 40 mg HS [facility] Administration Clonidine 0.1 mg 09/11/17 22:00 09/16/17 11:12 Catapres - PO 0.1 mg BID [facility] Administration Clopidogrel Bisulfate 75 mg 09/11/17 10:00 09/16/17 11:26 Plavix - PO 75 mg DAILY [facility] Administration Diphenhydramine HCl 25 mg 09/16/17 16:45 Benadryl - PO TID PRN swelling Furosemide 20 mg 09/11/17 10:00 09/16/17 11:13 Lasix - PO 20 mg DAILY [facility] Administration Gabapentin 300 mg 09/11/17 22:00 09/16/17 14:49 Neurontin - PO Not Given TID [facility] Heparin Sodium (Porcine) 5,000 unit 09/10/17 22:00 09/16/17 11:13 Heparin - SQ 5,000 unit BID [facility] Administration Hydrochlorothiazide 12.5 mg 09/11/17 10:00 09/16/17 11:12 Hctz - PO 12.5 mg DAILY [facility] Administration IV Flush 4 ml 09/15/17 13:08 Triple Lumen Flush IVPUSH PRN PRN Protocol Insulin Aspart 1 vial 09/12/17 07:00 09/16/17 17:09 Novolog Vial Sliding Scale - SQ Not Given ACHS [facility] Protocol Insulin Detemir 16 units 09/13/17 11:54 09/16/17 06:49 Levemir Vial SQ 16 units AM [facility] Administration Levofloxacin 250 mg 09/16/17 15:00 09/16/17 14:49 Levaquin - PO Not Given DAILY@0600 [facility] Metoprolol Tartrate 25 mg 09/12/17 00:15 09/16/17 11:13 Lopressor - PO 25 mg BID [facility] Administration Nicotine 14 mg 09/14/17 22:41 09/16/17 11:14 Nicoderm Patch - TD 14 mg DAILY [facility] Administration Oxycodone HCl 5 mg 09/16/17 04:52 09/16/17 04:58 Roxicodone - PO 5 mg Q6H PRN Administration PAIN LEVEL 6-10 Pantoprazole Sodium 20 mg 09/13/17 12:30 09/16/17 11:14 Protonix - PO 20 mg DAILY [facility] Administration Paroxetine HCl 10 mg 09/11/17 10:00 09/16/17 11:14 Paxil - PO 10 mg DAILY [facility] Administration Quetiapine Fumarate 200 mg 09/14/17 22:00 09/16/17 11:15 Seroquel - PO 200 mg BID [facility] Administration ASSESSMENT/PLAN: 52F with PMH of DM, htn, hld, PAD, s/p Right BKA (by Dr. Manzo in 2017), anxiety disorder, presenting with Left foot pain, scheduled for Left LE angioplasty on 09/17/[address] Manzo. Also, found to have acute/subacute CVA on Head CT. Transferred to ICU after Rapid Response for lethargy and hypoxia. # hypoxia - resolved - abg unremarkable - continue O2 prn # lethargy - resolved - Benadryl made prn - f/u Head CT # PATRICIA - BUN and Cr trending upward - s/p 1 L bolus NS - monitor UOP and Cr - avoid nephrotoxic agents # Left LE pain - possible sepsis 2/2 foot source - blood cultures (-) x 48 hrs - urine culture (+) for presumptive Pseudomonas - mild leukocytosis noted - ID (Dr. Dunlap) recs appreciated: po Levaquin - pain control with Percocet prn - scheduled for Left LE angioplasty tomorrow with Dr. Manzo # CVA - acute infarct in posterior limb of Right internal capsule extending towards globus pallidus and punctate acute infarct in Left frontal subcortical white matter on Brain MRI (09/15/17) - continue Plavix, Lipitor, ASA - Neurology (Dr. Barnes) recs appreciated # DM - BGMs - SSI - Levemir 16U AM # htn - continue home meds of Lopressor, HCTZ, Catapres, and Norvasc - hold if hypotensive # depression/anxiety - continue home meds of Seroquel and Paxil # nicotine dependence - continue Nicoderm patch # FEN - Fluids: po, s/p 1 L bolus of NS - Electrolytes: hypermagnesemia noted, continue to monitor - Nutrition: low sodium, diabetic diet # Prophylaxis - DVT ppx with Heparin BID - deconditioning ppx with PT Dispo: We will continue to follow the patient. Thank you for this consultative opportunity. Visit type - Emergency Visit Emergency Visit: Yes ED Registration Date: 09/12/17 Care time: The patient presented to the Emergency Department on the above date and was hospitalized for further evaluation of their emergent condition. - New Patient This patient is new to me today: Yes Date on this admission: 09/16/17 - Critical Care Critical Care patient: Yes Total Critical Care Time (in minutes): 45 Critical Care Statement: The care of this patient involved high complexity decision making to prevent further life threatening deterioration of the patient 's condition and/or to evaluate & treat vital organ system(s) failure or risk of failure.
--- NOTE | 2017-09-16 21:04 | CONSULT ---
Consult Consult Specialty:: Pulm/ CCM Reason for Consultation:: AMS - History of Present Illness Chief Complaint: Anxiety History of Present Illness: 52F with PMH of DM, htn, hld, PAD, s/p Right BKA , anxiety disorder initially presented Left foot pain. Plan for angioplasty on 09/[address] Manzo in 2016. Found to have acute/subacute CVA on Head CT. Hospital course has been c/b psuedomonas UTI and episodes of hypoglycemia. 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 She was arousable only to painful stimuli at the time. 1L NS bolus given. She was transferred to ICU on ventimask. In the ICU pt MS has improved and she is able to respond appropriately to simple questions. She is hemodynamically stable with O2 sat 100% on room air. CT head pending. She is anxious and restless but with no focal deficits. Pt states she doesn't know what happened earlier. 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 Cardio/Vascular: Yes: HTN, Other (PAD) Pulmonary: Yes: Asthma Gastrointestinal: Yes: Pancreatitis Hepatobiliary: Yes: Other (ALCOHOLISM STOPPED ONE YEAR AGO) Renal/: Yes: Other (PYLEONEPHRITIS RECENTLY AT [facility]) ...: No Endocrine: Yes: Diabetes Mellitus - Past Surgical History Past Surgical History: Yes: Cholecystectomy - Alcohol/Substance Use Hx Alcohol Use: No - Smoking History Smoking history: Former smoker Have you smoked in the past 12 months: No Aproximately how many cigarettes per day: 10 Home Medications - Allergies Allergies/Adverse Reactions: Allergies Allergy/AdvReac Type Severity Reaction Status Date / Time No Known Allergies Allergy Verified 09/10/17 10:47 - Home Medications Home Medications: Ambulatory Orders Aspirin [ASA -] 81 mg PO DAILY 05/04/15 Acetaminophen [Tylenol .Regular Strength -] 650 mg PO Q6H PRN #0 tablet Gabapentin [Neurontin -] 300 mg PO TID 09/08/16 Hydrochlorothiazide [Hctz -] 12.5 mg PO DAILY cap 09/08/16 Amlodipine Besylate [Norvasc -] 10 mg PO DAILY 09/10/17 Clopidogrel Bisulfate [Plavix -] 75 mg PO DAILY 09/10/17 Diphenhydramine HCl [Benadryl Capsule -] 25 mg PO Q8H 09/10/17 Furosemide [Lasix -] 20 mg PO DAILY 09/10/17 Insulin (Novolog) [Novolog Flexpen -] 12 units SQ TID 09/10/17 Paroxetine HCl [Paxil -] 10 mg PO DAILY 09/10/17 Quetiapine Fumarate [Seroquel -] 200 mg PO BID 09/10/17 cloNIDine HCL [Catapres -] 0.1 mg PO BID 09/10/17 Insulin Detemir [Levemir Flextouch] 100 unit SQ ASDIR #1 insuln.pen 09/12/17 Metoprolol Tartrate [Lopressor -] 25 mg PO BID #60 tablet 09/12/17 Pen Needle, Diabetic [Bd Ultra-Fine Pen Needle] 1 each MC BID #100 dis.needle Physical Exam Vital Signs: Vital Signs Temperature 97.6 F 09/16/17 14:05 Pulse Rate 77 09/16/17 20:00 Respiratory Rate 18 09/16/17 20:00 Blood Pressure 160/83 09/16/17 20:00 O2 Sat by Pulse Oximetry (%) 100 09/16/17 20:17 Constitutional: Yes: Well Nourished, No Distress, Anxious Eyes: Yes: Conjunctiva Clear HENT: Yes: Atraumatic, Normocephalic Neck: Yes: Supple, Trachea Midline Cardiovascular: Yes: Regular Rate and Rhythm, S1, S2 Respiratory: Yes: Regular, CTA Bilaterally Gastrointestinal: Yes: Normal Bowel Sounds, Soft Extremities: Yes: WNL, Other (Rt BKA) Edema: No Peripheral Pulses WNL: Yes Neurological: Yes: Alert, Oriented, Cran Nerves II-XII Intact ...Motor Strength: WNL Psychiatric: Yes: Other (anxious) Labs: CBC, BMP 09/16/17 17:00 09/16/17 17:00 CBC,CMP WBC 10.7 K/mm3 (4.0-10.0) H D 09/16/17 17:00 RBC 3.15 M/mm3 (3.60-5.2) L 09/16/17 17:00 Hgb 9.6 GM/dL (10.7-15.3) L 09/16/17 17:00 Hct 28.7 % (32.4-45.2) L 09/16/17 17:00 MCV 91.0 fl (80-96) 09/16/17 17:00 MCH 30.4 pg (25.7-33.7) 09/16/17 17:00 MCHC 33.4 g/dl (32.0-36.0) 09/16/17 17:00 RDW 14.9 % (11.6-15.6) 09/16/17 17:00 Plt Count 502 K/MM3 (134-434) H 09/16/17 17:00 MPV 8.3 fl (7.5-11.1) 09/16/17 17:00 Neutrophils % 78.5 % (42.8-82.8) 09/16/17 17:00 Lymphocytes % 12.5 % (8-40) D 09/16/17 17:00 Monocytes % 6.3 % (3.8-10.2) 09/16/17 17:00 Eosinophils % 2.4 % (0-4.5) D 09/16/17 17:00 Basophils % 0.3 % (0-2.0) 09/16/17 17:00 ESR 85 mm/hr (0-30) H 09/14/17 06:45 Sodium 143 mmol/L (136-145) 09/16/17 17:00 Potassium 4.8 mmol/L (3.5-5.1) 09/16/17 17:00 Chloride 112 mmol/L (98-107) H 09/16/17 17:00 Carbon Dioxide 22 mmol/L (21-32) 09/16/17 17:00 Anion Gap 9 (8-16) 09/16/17 17:00 BUN 27 mg/dL (7-18) H 09/16/17 17:00 Creatinine 1.9 mg/dL (0.55-1.02) H 09/16/17 17:00 Creat Clearance w eGFR 27.55 (>60) 09/16/17 17:00 POC Glucometer 157 UNITS (80-120) 09/16/17 16:45 Random Glucose 161 mg/dL (74-106) H 09/16/17 17:00 Hemoglobin A1c % 8.0 % (4.8-6.0) H 09/11/17 06:15 Lactic Acid 0.6 mmol/L (0.0-2.0) 09/16/17 20:00 Calcium 7.5 mg/dL (8.5-10.1) L 09/16/17 17:00 Phosphorus 4.7 mg/dL (2.5-4.9) 09/16/17 17:00 Magnesium 2.5 mg/dL (1.8-2.4) H 09/16/17 17:00 Total Bilirubin 0.1 mg/dL (0.2-1.0) L D 09/16/17 17:00 AST 24 U/L (15-37) 09/16/17 17:00 ALT 20 U/L (12-78) 09/16/17 17:00 Alkaline Phosphatase 317 U/L (45-117) H 09/16/17 17:00 Ammonia 12.75 umol/L (11-32) 09/14/17 11:08 Creatine Kinase 62 IU/L (26-192) 09/16/17 17:00 Troponin I < 0.02 ng/ml (0.00-0.05) 09/16/17 17:00 Total Protein 3.8 g/dl (6.4-8.2) L 09/16/17 17:00 Albumin 1.1 g/dl (3.4-5.0) L 09/16/17 17:00 Triglycerides 111 mg/dL (35-160) 09/15/17 05:35 Cholesterol 210 mg/dL (50-200) H 09/15/17 05:35 Total LDL Cholesterol 115 mg/dL (5-100) H 09/15/17 05:35 HDL Cholesterol 78 mg/dL (40-60) H 09/15/17 05:35 Current Medications Acetaminophen (Tylenol -) 650 mg PO Q4H PRN PRN Reason: MODERATE PAIN Last Admin: 09/16/17 04:58 Dose: 650 mg Amlodipine Besylate (Norvasc -) 10 mg PO DAILY [facility] Last Admin: 09/16/17 11:14 Dose: 10 mg Aspirin (Asa -) 81 mg PO DAILY [facility] Last Admin: 09/16/17 11:12 Dose: 81 mg Atorvastatin Calcium (Lipitor -) 40 mg PO HS [facility] Last Admin: 09/16/17 22:35 Dose: 40 mg Clonidine (Catapres -) 0.1 mg PO BID [facility] Last Admin: 09/16/17 22:36 Dose: 0.1 mg Clopidogrel Bisulfate (Plavix -) 75 mg PO DAILY [facility] Last Admin: 09/16/17 11:26 Dose: 75 mg Diphenhydramine HCl (Benadryl -) 25 mg PO TID PRN PRN Reason: swelling Furosemide (Lasix -) 20 mg PO DAILY [facility] Last Admin: 09/16/17 11:13 Dose: 20 mg Gabapentin (Neurontin -) 300 mg PO TID [facility] Last Admin: 09/16/17 22:36 Dose: 300 mg Heparin Sodium (Porcine) (Heparin -) 5,000 unit SQ BID [facility] Last Admin: 09/16/17 22:35 Dose: 5,000 unit Hydrochlorothiazide (Hctz -) 12.5 mg PO DAILY [facility] Last Admin: 09/16/17 11:12 Dose: 12.5 mg IV Flush (Triple Lumen Flush) 4 ml IVPUSH PRN PRN PRN Reason: Protocol Insulin Aspart (Novolog Vial Sliding Scale -) 1 vial SQ ACHS [facility] PRN Reason: Protocol Last Admin: 09/16/17 17:09 Dose: Not Given Insulin Detemir (Levemir Vial) 16 units SQ AM [facility] Last Admin: 09/16/17 06:49 Dose: 16 units Levofloxacin (Levaquin -) 250 mg PO DAILY@0600 [facility] Last Admin: 09/16/17 14:49 Dose: Not Given Metoprolol Tartrate (Lopressor -) 25 mg PO BID [facility] Last Admin: 09/16/17 22:36 Dose: 25 mg Nicotine (Nicoderm Patch -) 14 mg TD DAILY [facility] Last Admin: 09/16/17 11:14 Dose: 14 mg Oxycodone HCl (Roxicodone -) 5 mg PO Q6H PRN PRN Reason: PAIN LEVEL 6-10 Last Admin: 09/16/17 04:58 Dose: 5 mg Pantoprazole Sodium (Protonix -) 20 mg PO DAILY [facility] Last Admin: 09/16/17 11:14 Dose: 20 mg Paroxetine HCl (Paxil -) 10 mg PO DAILY [facility] Last Admin: 09/16/17 11:14 Dose: 10 mg Quetiapine Fumarate (Seroquel -) 200 mg PO BID [facility] Last Admin: 09/16/17 11:15 Dose: 200 mg Imaging - Results Chest X-ray: Report Reviewed Cat Scan: Report Reviewed ( acute infarct in posterior limb of Right internal capsule extending towards globus pallidus and punctate acute infarct in Left frontal subcortical white matter on Brain MRI (09/15/17)) MRI: Report Reviewed Problem List - Problems (1) Altered mental status Code(s): R41.82 - ALTERED MENTAL STATUS, UNSPECIFIED (2) Anxiety Code(s): F41.9 - ANXIETY DISORDER, UNSPECIFIED (3) Hypoglycemia associated with diabetes Code(s): E11.649 - TYPE 2 DIABETES MELLITUS WITH HYPOGLYCEMIA WITHOUT COMA (4) CVA (cerebrovascular accident) Code(s): I63.9 - CEREBRAL INFARCTION, UNSPECIFIED (5) Poor compliance with medication Code(s): Z91.14 - PATIENT'S OTHER NONCOMPLIANCE WITH MEDICATION REGIMEN (6) Diabetes Code(s): E11.9 - TYPE 2 DIABETES MELLITUS WITHOUT COMPLICATIONS Qualifiers: Diabetes mellitus type: type 2 (7) Hypertension Code(s): I10 - ESSENTIAL (PRIMARY) HYPERTENSION (8) Ischemic foot Code(s): I99.8 - OTHER DISORDER OF CIRCULATORY SYSTEM (9) 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 Plan for angioplasty on 09/[address] Manzo in 2017. Found to have acute/subacute CVA on Head CT. Hospital course c/b UTI and episodes of hypoglycemia. Transferred to ICU with AMS and hypoxia thought to be the setting hypoglycemia+/-dosing of antidepressants and benadryl also c/f hemorragic CVA +/- sepsis. Now improved and back to baseline. O2 sat 100% on rm air. Plan: -F/u CT head -continue Plavix, Lipitor, ASA as per neurology consult depending on CT results -Consider r/o subclinical seizures -Adjust timing of antidepressant and opioid and benadryl dosing -Diabetes consult for DMII management re episodes of severe hypoglycemia -diabetic diet -NC O2 as needed for O2sat>92% - Pulmonary toilet -IS -Reculture if WBC bump -Cont antibiotics for UTI -Continue antihypertensives and statin -IVF -Monitor BMP and UOP -DVT and GI prphylaxis. Joana Fajardo, BANGP CC time 35mins
[2017-09-16] MEDS: ATORVASTATIN CA 40 MG TABLET (FP) PO SCH (22:35)
[2017-09-16] MEDS ORDERED: HEMOQUE TEST 1 EACH EACH ONE (23:05)
[2017-09-17] MEDS ORDERED: diphenhydrAMINE HCL 25 MG CAPSULE (FP) PO PRN ×2 (00:41→20:14)
[2017-09-17] MEDS ORDERED: TRIPLE LUMEN FLUSH 4 ML ML IVPUSH PRN ×2 (00:41→20:14)
[2017-09-17] MEDS ORDERED: ACETAMINOPHEN 325 MG TABLET (FP) PO PRN (00:41)
[2017-09-17] MEDS ORDERED: oxyCODONE HCL 5 MG TABLET PO PRN (00:41)
[2017-09-17] MEDS: GABAPENTIN 300 MG CAPSULE (FP) PO SCH ×3 (06:37→21:31)
[2017-09-17] MEDS: INSULIN SLIDING SCALE (NOVOLOG) 1 VIAL SQ SCH ×4 (06:37→21:31)
[2017-09-17 06:39] LABS: HEMATOCRIT 30.6 % (32.4-45.2); HEMOGLOBIN 10.4 GM/dL (10.7-15.3); MCH 30.3 pg (25.7-33.7); MEAN CELL VOLUME 89.1 fl (80-96); MEAN PLT VOLUME 7.9 fl (7.5-11.1); PLATELET COUNT 577 K/MM3 (134-434); RBC 3.43 M/mm3 (3.60-5.2); RDW 14.8 % (11.6-15.6); WHITE BLOOD COUNT 17.1 K/mm3 (4.0-10.0)
[2017-09-17] MEDS ORDERED: INSULIN DETEMIR 100 UNITS/ML MDV SQ SCH ×2 (07:00→10:16)
[2017-09-17 07:07] LABS: ALBUMIN 1.2 g/dl (3.4-5.0); ANION GAP 10 (8-16); BILIRUBIN,TOTAL 0.2 mg/dL (0.2-1.0); BLOOD UREA NITROGEN 25 mg/dL (7-18); CALCIUM 7.8 mg/dL (8.5-10.1); CHLORIDE 110 mmol/L (98-107); CO2 24 mmol/L (21-32); CREATININE 1.6 mg/dL (0.55-1.02); GLUCOSE,RANDOM 145 mg/dL (74-106); MAGNESIUM 2.5 mg/dL (1.8-2.4); PHOSPHOROUS 4.2 mg/dL (2.5-4.9); POTASSIUM 4.7 mmol/L (3.5-5.1); SGOT/AST 19 U/L (15-37); SGPT/ALT 19 U/L (12-78); SODIUM 144 mmol/L (136-145); TOT PROT 4.3 g/dl (6.4-8.2)
[2017-09-17 07:08] LABS: ALK PHOS 324 U/L (45-117)
[2017-09-17] MEDS ORDERED: NICOTINE 14 MG/24 HOURS TOPICAL PATCH TD SCH (10:00)
[2017-09-17] MEDS ORDERED: HYDROCHLOROTHIAZIDE 12.5 MG CAPSULE (FP) PO SCH (10:00)
[2017-09-17] MEDS ORDERED: cloNIDine HCL 0.1 MG TABLET PO SCH (10:00)
[2017-09-17] MEDS ORDERED: PARoxetine HCL 10 MG TABLET (FP) PO SCH (10:00)
[2017-09-17] MEDS ORDERED: METOPROLOL TARTRATE 25 MG TABLET (FP) PO SCH (10:00)
[2017-09-17] MEDS ORDERED: FUROSEMIDE 20 MG TABLET (FP) PO SCH (10:00)
[2017-09-17] MEDS ORDERED: ASPIRIN 81 MG CHEWABLE TABLETS PO SCH (10:00)
[2017-09-17] MEDS ORDERED: CLOPIDOGREL BISULFATE 75 MG TABLET (FP) PO SCH (10:00)
[2017-09-17] MEDS ORDERED: PANTOPRAZOLE 20 MG TABLET (FP) PO SCH (10:00)
[2017-09-17] MEDS ORDERED: amLODIPine BESYLATE 10 MG TABLET (FP) PO SCH (10:00)
[2017-09-17] MEDS ORDERED: QUEtiapine FUMARATE 200 MG TABLET PO SCH (10:00)
[2017-09-17] MEDS ORDERED: HEPARIN NA (PORCINE) 5,000 UNITS/ML 1ML VIAL SQ SCH (10:00)
--- NOTE | 2017-09-17 10:16 | PN ---
Progress Note, Physician Chief Complaint: Gangrene, LLE Acute infarct History of Present Illness: leukocystosis febrile last night Repeat BC pending Repeat CXR yesterday shows bibasilar atelectasis and possible vascular congestion ID on board on PO levaquin awake and alert, NAD, in bed - Current Medication List Current Medications: Active Medications Acetaminophen (Tylenol -) 650 mg PO Q4H PRN PRN Reason: MODERATE PAIN Amlodipine Besylate (Norvasc -) 10 mg PO DAILY [facility] Aspirin (Asa -) 81 mg PO DAILY [facility] Atorvastatin Calcium (Lipitor -) 40 mg PO HS [facility] Clonidine (Catapres -) 0.1 mg PO BID [facility] Clopidogrel Bisulfate (Plavix -) 75 mg PO DAILY [facility] Diphenhydramine HCl (Benadryl -) 25 mg PO Q8H PRN PRN Reason: swelling Furosemide (Lasix -) 20 mg PO DAILY [facility] Gabapentin (Neurontin -) 300 mg PO TID [facility] Last Admin: 09/17/17 06:37 Dose: 300 mg Heparin Sodium (Porcine) (Heparin -) 5,000 unit SQ BID [facility] Hydrochlorothiazide (Hctz -) 12.5 mg PO DAILY [facility] IV Flush (Triple Lumen Flush) 4 ml IVPUSH PRN PRN PRN Reason: Protocol Insulin Aspart (Novolog Vial Sliding Scale -) 1 vial SQ ACHS [facility] PRN Reason: Protocol Last Admin: 09/17/17 06:37 Dose: Not Given Insulin Detemir (Levemir Vial) 16 units SQ AM [facility] Last Admin: 09/17/17 06:38 Dose: 16 unit Levofloxacin (Levaquin -) 250 mg PO DAILY@0600 [facility] Last Admin: 09/17/17 06:37 Dose: 250 mg Metoprolol Tartrate (Lopressor -) 25 mg PO BID [facility] Nicotine (Nicoderm Patch -) 14 mg TD DAILY [facility] Oxycodone HCl (Roxicodone -) 5 mg PO Q6H PRN PRN Reason: PAIN LEVEL 6-10 Last Admin: 09/17/17 08:18 Dose: 5 mg Pantoprazole Sodium (Protonix -) 20 mg PO DAILY [facility] Paroxetine HCl (Paxil -) 10 mg PO DAILY [facility] Quetiapine Fumarate (Seroquel -) 200 mg PO BID [facility] - Objective Vital Signs: Vital Signs Temperature 98.5 F 09/17/17 10:00 Pulse Rate 65 09/17/17 10:00 Respiratory Rate 15 09/17/17 10:00 Blood Pressure 159/84 09/17/17 10:00 O2 Sat by Pulse Oximetry (%) 100 09/17/17 09:00 Constitutional: Yes: Well Nourished, No Distress, Calm Cardiovascular: Yes: Regular Rate and Rhythm Respiratory: Yes: Regular Musculoskeletal: Yes: Muscle Pain (LLE) Extremities: Yes: Amputation (RLE) Peripheral Pulses WNL: No Neurological: Yes: Alert Psychiatric: Yes: Alert Labs: CBC, BMP 09/17/17 06:15 09/17/17 06:15 INR, PTT INR 0.97 (0.82-1.09) 09/10/17 13:25 Problem List - Problems (1) Gangrene associated with diabetes mellitus Assessment/Plan: -LLE -seen by Dr Manzo -Pain management -Angio LLE -nephrology consult Code(s): E11.52 - TYPE 2 DIABETES W DIABETIC PERIPHERAL ANGIOPATHY W GANGRENE (2) Diabetes Assessment/Plan: -Uncontrolled -non compliant outpatient -RD consult -Endocrinology consult -Decrease Levemir to avoid afternoon dips -BGM -Diabetic diet Code(s): E11.9 - TYPE 2 DIABETES MELLITUS WITHOUT COMPLICATIONS Qualifiers: Diabetes mellitus type: type 2 (3) CVA (cerebrovascular accident) Assessment/Plan: -seen by Neurology -Repeat CT head no change left frontal infarct, no hemorrhage Code(s): I63.9 - CEREBRAL INFARCTION, UNSPECIFIED (4) PATRICIA (acute kidney injury) Assessment/Plan: improved -received IVF yesterday 1 L -CXR showed pulmonary congestion -Nephrology consult Code(s): N17.9 - ACUTE KIDNEY FAILURE, UNSPECIFIED (5) Leukocytosis Assessment/Plan: -worse today -febrile last night -repeat BC pending -Repeat CXR showed bibasilar atelectasis and vascular congestion -on PO levaquin -ID on board Code(s): D72.829 - ELEVATED WHITE BLOOD CELL COUNT, UNSPECIFIED Assessment/Plan see problem list
--- NOTE | 2017-09-17 11:30 | PN ---
Teaching Attending Note Name of Resident: Frank Cobian ATTENDING PHYSICIAN STATEMENT I saw and evaluated the patient. I reviewed the resident's note and discussed the case with the resident. I agree with the resident's findings and plan as documented. SUBJECTIVE: Pt seen and examined in the ICU. Mental status improved, back to baseline. Febrile to 101.5 overnight. Denies cough, shortness of breath or chest pain. OBJECTIVE: Last Vital Signs Temp Pulse Resp BP Pulse Ox 98.5 F 65 15 159/84 100 09/17/17 10:00 09/17/17 10:00 09/17/17 10:00 09/17/17 10:00 09/17/17 09:00 Intake & Output 09/14/17 09/15/17 09/16/17 09/17/17 23:59 23:59 23:59 23:59 Intake Total 1190 1880 2260 Output Total 300 Balance 890 1880 2260 Weight 79.3 kg Gen: NAD at rest Heart: RRR Lung: decreased breath sounds at the bases Abd: soft, nontender Ext: R BKA, nonpalpable pulses L DP CBC, BMP 09/17/17 06:15 09/17/17 06:15 Active Medications Acetaminophen (Tylenol -) 650 mg PO Q4H PRN PRN Reason: MODERATE PAIN Amlodipine Besylate (Norvasc -) 10 mg PO DAILY [facility] Last Admin: 09/17/17 11:13 Dose: 10 mg Aspirin (Asa -) 81 mg PO DAILY [facility] Last Admin: 09/17/17 11:16 Dose: 81 mg Atorvastatin Calcium (Lipitor -) 40 mg PO HS [facility] Clonidine (Catapres -) 0.1 mg PO BID [facility] Last Admin: 09/17/17 11:14 Dose: 0.1 mg Clopidogrel Bisulfate (Plavix -) 75 mg PO DAILY [facility] Last Admin: 09/17/17 11:14 Dose: 75 mg Diphenhydramine HCl (Benadryl -) 25 mg PO Q8H PRN PRN Reason: swelling Furosemide (Lasix -) 20 mg PO DAILY [facility] Last Admin: 09/17/17 11:14 Dose: 20 mg Gabapentin (Neurontin -) 300 mg PO TID [facility] Last Admin: 09/17/17 06:37 Dose: 300 mg Heparin Sodium (Porcine) (Heparin -) 5,000 unit SQ BID [facility] Last Admin: 09/17/17 11:13 Dose: 5,000 unit Hydrochlorothiazide (Hctz -) 12.5 mg PO DAILY [facility] Last Admin: 09/17/17 11:13 Dose: 12.5 mg IV Flush (Triple Lumen Flush) 4 ml IVPUSH PRN PRN PRN Reason: Protocol Insulin Aspart (Novolog Vial Sliding Scale -) 1 vial SQ ACHS [facility] PRN Reason: Protocol Last Admin: 09/17/17 06:37 Dose: Not Given Insulin Detemir (Levemir Vial) 14 units SQ AM [facility] Levofloxacin (Levaquin -) 250 mg PO DAILY@0600 [facility] Last Admin: 09/17/17 06:37 Dose: 250 mg Metoprolol Tartrate (Lopressor -) 25 mg PO BID [facility] Last Admin: 09/17/17 11:13 Dose: 25 mg Nicotine (Nicoderm Patch -) 14 mg TD DAILY [facility] Last Admin: 09/17/17 11:15 Dose: 14 mg Oxycodone HCl (Roxicodone -) 5 mg PO Q6H PRN PRN Reason: PAIN LEVEL 6-10 Last Admin: 09/17/17 08:18 Dose: 5 mg Pantoprazole Sodium (Protonix -) 20 mg PO DAILY [facility] Last Admin: 09/17/17 11:14 Dose: 20 mg Paroxetine HCl (Paxil -) 10 mg PO DAILY [facility] Last Admin: 09/17/17 11:16 Dose: 10 mg Quetiapine Fumarate (Seroquel -) 200 mg PO BID [facility] Last Admin: 09/17/17 11:17 Dose: 200 mg ASSESSMENT AND PLAN: Altered Mental Status improved Hypoglycemia Fever - ?Aspiration event Acute/Subacute CVA PAD HTN DM Hyperlipidemia UTI - repeat CXR - antibiotics per ID - f/u cultures - O2 to keep SpO2 >90% - pain control - ASA, plavix, statin - pulse checks - incentive spirometry - DVT prophylaxis - can monitor on floor
--- NOTE | 2017-09-17 11:37 | EKG ---
Test Reason : Blood Pressure : / mmHG Vent. Rate : 065 BPM Atrial Rate : 065 BPM P-R Int : 138 ms QRS Dur : 082 ms QT Int : 384 ms P-R-T Axes : 007 056 008 degrees QTc Int : 399 ms NORMAL SINUS RHYTHM NORMAL ECG WHEN COMPARED WITH ECG OF 10-SEP-2017 18:10, QUESTIONABLE CHANGE IN QRS AXIS Confirmed by TU CUENCA MD ([id number]) on 09/17/2017 11:37:25 AM Referred By: Confirmed By:TU CUENCA MD
--- NOTE | 2017-09-17 11:43 | PN ---
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 Pt is ICU. Speech is much more precise. Left facial at rest/ (-) 3 oz water test. REC: Reg diet thin liquid. HOB elevated fully during meals. Monitor tolerance.
--- NOTE | 2017-09-17 13:58 | PN ---
Progress Note (short form) - Note Progress Note: Vascular Surgery Pt seen and examined. dry gangrene of left toe. Pt had event last night where she was hypoglycemic . Pt also had a temp of 101. Discussed case with ICU team. WBC 17 this am. They feel that she might have aspirated during her episode. Will hold off on surgery right now. With all her recent events -- subacute infact, and this episode of aspiration, will do surgery in one week. Will let pt recover for now. Pt can follow in office and will give pt a outpt date for operation in one week. Spoke to pt about plan and she agrees. Jose Manzo DO
--- NOTE | 2017-09-17 14:22 | CONSULT ---
Consult Consult Specialty:: Nephrology Reason for Consultation:: CKD - History of Present Illness Chief Complaint: initially presented with left foot pain History of Present Illness: Pt is a 52 year old female with pmhx of CKD, HTN, HLD, and DM who initially presents to the ER with left foot pain. She was found to have elevated creatinine and I was called to evaluate her. She had a hypoglycemic episode and she is now in the ICU. She has history of of right BKA. She denies shortness of breath. She denies chest pain. She denies dysuria or hematuria. 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 Medical History PRESIDENT: Yes: CVA Cardio/Vascular: Yes: HTN, Other (PAD) Pulmonary: Yes: Asthma Gastrointestinal: Yes: Pancreatitis Hepatobiliary: Yes: Other (ALCOHOLISM STOPPED ONE YEAR AGO) Renal/: Yes: Renal Inusuff, Other (PYLEONEPHRITIS RECENTLY AT [facility]) ...: No Endocrine: Yes: Diabetes Mellitus - Past Surgical History Past Surgical History: Yes: Cholecystectomy - Alcohol/Substance Use Hx Alcohol Use: No - Smoking History Smoking history: Former smoker Have you smoked in the past 12 months: No Aproximately how many cigarettes per day: 10 Home Medications - Allergies Allergies/Adverse Reactions: Allergies Allergy/AdvReac Type Severity Reaction Status Date / Time No Known Allergies Allergy Verified 09/10/17 10:47 - Home Medications Home Medications: Ambulatory Orders Aspirin [ASA -] 81 mg PO DAILY 05/04/15 Acetaminophen [Tylenol .Regular Strength -] 650 mg PO Q6H PRN #0 tablet Gabapentin [Neurontin -] 300 mg PO TID 09/08/16 Hydrochlorothiazide [Hctz -] 12.5 mg PO DAILY cap 09/08/16 Amlodipine Besylate [Norvasc -] 10 mg PO DAILY 09/10/17 Clopidogrel Bisulfate [Plavix -] 75 mg PO DAILY 09/10/17 Diphenhydramine HCl [Benadryl Capsule -] 25 mg PO Q8H 09/10/17 Furosemide [Lasix -] 20 mg PO DAILY 09/10/17 Insulin (Novolog) [Novolog Flexpen -] 12 units SQ TID 09/10/17 Paroxetine HCl [Paxil -] 10 mg PO DAILY 09/10/17 Quetiapine Fumarate [Seroquel -] 200 mg PO BID 09/10/17 cloNIDine HCL [Catapres -] 0.1 mg PO BID 09/10/17 Insulin Detemir [Levemir Flextouch] 100 unit SQ [facility] #1 insuln.pen 09/12/17 Metoprolol Tartrate [Lopressor -] 25 mg PO BID #60 tablet 09/12/17 Pen Needle, Diabetic [Bd Ultra-Fine Pen Needle] 1 each [facility] BID #100 dis.needle Family Disease History - Family Disease History Family History: Denies Review of Systems - Review of Systems Constitutional: reports: No Symptoms Eyes: reports: No Symptoms Neck: reports: No Symptoms Cardiovascular: reports: No Symptoms Respiratory: reports: No Symptoms Gastrointestinal: reports: No Symptoms Genitourinary: reports: No Symptoms Neurological: reports: Change in LOC Endocrine: reports: Other (hypoglycemia) Hematology/Lymphatic: reports: No Symptoms Physical Exam Vital Signs: Vital Signs Temperature 98.5 F 09/17/17 10:00 Pulse Rate 65 09/17/17 10:00 Respiratory Rate 15 09/17/17 10:00 Blood Pressure 159/84 09/17/17 10:00 O2 Sat by Pulse Oximetry (%) 100 09/17/17 09:00 Constitutional: Yes: Calm Eyes: Yes: Conjunctiva Clear HENT: Yes: Atraumatic Cardiovascular: Yes: S1, S2 Respiratory: Yes: CTA Bilaterally Gastrointestinal: Yes: Normal Bowel Sounds, Soft Renal/: Yes: WNL Musculoskeletal: Yes: Other (rbka) Edema: No Neurological: Yes: Oriented Psychiatric: Yes: Oriented Labs: CBC, BMP 09/17/17 06:15 09/17/17 06:15 Laboratory Tests 09/07/16 09/08/16 02/18/17 06:15 06:20 22:10 Chloride BUN Creatinine 0.9 0.8 1.6 H D Urine Protein Urine Blood 05/15/17 05/16/17 05/17/17 08:09 06:38 10:21 Chloride BUN Creatinine 1.2 H D 1.4 H 1.4 H Urine Protein Urine Blood 09/10/17 09/11/17 09/14/17 13:25 06:15 06:45 Chloride BUN Creatinine 1.5 H 1.2 H 1.6 H Urine Protein Urine Blood 09/14/17 09/15/17 09/16/17 21:30 05:35 17:00 Chloride BUN Creatinine 1.8 H 1.9 H Urine Protein 3+ H Urine Blood Negative 09/17/17 06:15 Chloride 110 H BUN 25 H Creatinine 1.6 H Urine Protein Urine Blood Imaging - Results Chest X-ray: Report Reviewed Problem List - Problems (1) CKD (chronic kidney disease) Code(s): N18.9 - CHRONIC KIDNEY DISEASE, UNSPECIFIED (2) Gangrene associated with diabetes mellitus Code(s): E11.52 - TYPE 2 DIABETES W DIABETIC PERIPHERAL ANGIOPATHY W GANGRENE (3) Hypoglycemia associated with diabetes Code(s): E11.649 - TYPE 2 DIABETES MELLITUS WITH HYPOGLYCEMIA WITHOUT COMA (4) Tobacco dependence Code(s): F17.200 - NICOTINE DEPENDENCE, UNSPECIFIED, UNCOMPLICATED Assessment/Plan Current Medications Generic Name Dose Route Start Last Admin Trade Name Freq PRN Reason Stop Dose Admin Acetaminophen 650 mg 09/17/17 00:41 Tylenol - PO Q4H PRN MODERATE PAIN Amlodipine Besylate 10 mg 09/17/17 10:00 09/17/17 11:13 Norvasc - PO 10 mg DAILY [facility] Administration Aspirin 81 mg 09/17/17 10:00 09/17/17 11:16 Asa - PO 81 mg DAILY [facility] Administration Atorvastatin Calcium 40 mg 09/17/17 22:00 Lipitor - PO HS [facility] Clonidine 0.1 mg 09/17/17 10:00 09/17/17 11:14 Catapres - PO 0.1 mg BID [facility] Administration Clopidogrel Bisulfate 75 mg 09/17/17 10:00 09/17/17 11:14 Plavix - PO 75 mg DAILY [facility] Administration Diphenhydramine HCl 25 mg 09/17/17 00:41 Benadryl - PO Q8H PRN swelling Furosemide 20 mg 09/17/17 10:00 09/17/17 11:14 Lasix - PO 20 mg DAILY [facility] Administration Gabapentin 300 mg 09/17/17 06:00 09/17/17 14:02 Neurontin - PO 300 mg TID [facility] Administration Heparin Sodium (Porcine) 5,000 unit 09/17/17 10:00 09/17/17 11:13 Heparin - SQ 5,000 unit BID [facility] Administration Hydrochlorothiazide 12.5 mg 09/17/17 10:00 09/17/17 11:13 Hctz - PO 12.5 mg DAILY [facility] Administration IV Flush 4 ml 09/17/17 00:41 Triple Lumen Flush IVPUSH PRN PRN Protocol Piperacillin Sod/Tazobactam 50 mls @ 100 mls/hr 09/17/17 14:45 Sod 3.375 gm/ Dextrose IVPB Q8H-IV [facility] Protocol Insulin Aspart 1 vial 09/17/17 07:00 09/17/17 12:03 Novolog Vial Sliding Scale - SQ Not Given ACHS [facility] Protocol Metoprolol Tartrate 25 mg 09/17/17 10:00 09/17/17 11:13 Lopressor - PO 25 mg BID [facility] Administration Nicotine 14 mg 09/17/17 10:00 09/17/17 11:15 Nicoderm Patch - TD 14 mg DAILY [facility] Administration Oxycodone HCl 5 mg 09/17/17 00:41 09/17/17 08:18 Roxicodone - PO 5 mg Q6H PRN Administration PAIN LEVEL 6-10 Pantoprazole Sodium 20 mg 09/17/17 10:00 09/17/17 11:14 Protonix - PO 20 mg DAILY [facility] Administration Paroxetine HCl 10 mg 09/17/17 10:00 09/17/17 11:16 Paxil - PO 10 mg DAILY [facility] Administration Quetiapine Fumarate 200 mg 09/17/17 10:00 09/17/17 11:17 Seroquel - PO 200 mg BID [facility] Administration Impression 1. CKD 2. PVD 3. altered mental status 4. DM 5. HTN 6. hypoglycemia 7. HLD 8. UTI Plan - check ultrasound of the kidneys and bladder - renal dose meds - repeat ua - check prt to manager park ratio - pt has not followed as outpt - monitor bp - monitor pulse ox Dr Kitchen
--- NOTE | 2017-09-17 14:33 | PN ---
Progress Note, Physician History of Present Illness: Transferred to ICU with increased lethargy Lethargic c/o foot pain Cough noted Breathing non-labored Spiked temp 101.5 WBC elevation 17K Cultures pending - Current Medication List Current Medications: Active Medications Acetaminophen (Tylenol -) 650 mg PO Q4H PRN PRN Reason: MODERATE PAIN Amlodipine Besylate (Norvasc -) 10 mg PO DAILY [facility] Last Admin: 09/17/17 11:13 Dose: 10 mg Aspirin (Asa -) 81 mg PO DAILY [facility] Last Admin: 09/17/17 11:16 Dose: 81 mg Atorvastatin Calcium (Lipitor -) 40 mg PO [facility] Clonidine (Catapres -) 0.1 mg PO BID [facility] Last Admin: 09/17/17 11:14 Dose: 0.1 mg Clopidogrel Bisulfate (Plavix -) 75 mg PO DAILY [facility] Last Admin: 09/17/17 11:14 Dose: 75 mg Diphenhydramine HCl (Benadryl -) 25 mg PO Q8H PRN PRN Reason: swelling Furosemide (Lasix -) 20 mg PO DAILY [facility] Last Admin: 09/17/17 11:14 Dose: 20 mg Gabapentin (Neurontin -) 300 mg PO TID [facility] Last Admin: 09/17/17 14:02 Dose: 300 mg Heparin Sodium (Porcine) (Heparin -) 5,000 unit SQ BID [facility] Last Admin: 09/17/17 11:13 Dose: 5,000 unit Hydrochlorothiazide (Hctz -) 12.5 mg PO DAILY [facility] Last Admin: 09/17/17 11:13 Dose: 12.5 mg IV Flush (Triple Lumen Flush) 4 ml IVPUSH PRN PRN PRN Reason: Protocol Insulin Aspart (Novolog Vial Sliding Scale -) 1 vial SQ ACHS [facility] PRN Reason: Protocol Last Admin: 09/17/17 12:03 Dose: Not Given Levofloxacin (Levaquin -) 250 mg PO DAILY@0600 [facility] Last Admin: 09/17/17 06:37 Dose: 250 mg Metoprolol Tartrate (Lopressor -) 25 mg PO BID [facility] Last Admin: 09/17/17 11:13 Dose: 25 mg Nicotine (Nicoderm Patch -) 14 mg TD DAILY [facility] Last Admin: 09/17/17 11:15 Dose: 14 mg Oxycodone HCl (Roxicodone -) 5 mg PO Q6H PRN PRN Reason: PAIN LEVEL 6-10 Last Admin: 09/17/17 08:18 Dose: 5 mg Pantoprazole Sodium (Protonix -) 20 mg PO DAILY [facility] Last Admin: 09/17/17 11:14 Dose: 20 mg Paroxetine HCl (Paxil -) 10 mg PO DAILY [facility] Last Admin: 09/17/17 11:16 Dose: 10 mg Quetiapine Fumarate (Seroquel -) 200 mg PO BID [facility] Last Admin: 09/17/17 11:17 Dose: 200 mg - Objective Vital Signs: Vital Signs Temperature 98.5 F 09/17/17 10:00 Pulse Rate 65 09/17/17 10:00 Respiratory Rate 15 09/17/17 10:00 Blood Pressure 159/84 09/17/17 10:00 O2 Sat by Pulse Oximetry (%) 100 09/17/17 09:00 Constitutional: Yes: No Distress Eyes: Yes: Conjunctiva Clear Cardiovascular: Yes: Regular Rate and Rhythm, S1, S2 Respiratory: Yes: Diminished Gastrointestinal: Yes: Normal Bowel Sounds, Soft, Abdomen, Obese. No: Tenderness Extremities: Yes: Other (dry gangrene L 3rd toe) Edema: Yes Labs: CBC, BMP 09/17/17 06:15 09/17/17 06:15 INR, PTT INR 0.97 (0.82-1.09) 09/10/17 13:25 Assessment/Plan Fever/Leukocytosis R/O sepsis ? aspiration Possible sepsis secondary to foot source ? CVA PVD S/P R BKA Azotemia + Urine c/s Pseudomonas Await sepsis workup Substitute Zosyn Aspiration precautions
--- NOTE | 2017-09-17 14:52 | PN ---
Physical Exam: SUBJECTIVE: Patient seen and examined Overnight, pt spiked temp of 101.5. This am, pt denies headache, lightheadedness , SOB, chest pain, abdominal pain, n/v/d/c, dysuria. She endorses left foot pain. OBJECTIVE: Vital Signs Period Temp Pulse Resp BP Sys/[place] Pulse Ox Last 24 Hr 97.8 F-101.5 F 65-85 7-20 108-180/67-96 100-100 GENERAL: The patient is awake, alert, and fully oriented, in no acute distress. HEENT: NC, AT LUNGS: Breath sounds equal, clear to auscultation bilaterally, no wheezes, no crackles, no accessory muscle use. HEART: Regular rate and rhythm, S1, S2 without murmur, rub or gallop. ABDOMEN: Soft, nontender, nondistended, normoactive bowel sounds, no guarding, no rebound, no hepatosplenomegaly, no masses. EXTREMITIES: right BKA. left foot has gangrenous changes on toes. DP dopplerable , but PT pulse not dopplerable. foot is warm to touch, NT. NEUROLOGICAL: Cranial nerves II through XII grossly intact. Normal speech Laboratory Results - last 24 hr 09/16/17 09/16/17 09/16/17 14:56 15:16 15:35 WBC RBC Hgb Hct MCV MCH MCHC RDW Plt Count MPV Neutrophils % Lymphocytes % Monocytes % Eosinophils % Basophils % Anticoagulation Therapy Puncture Site ABG pH ABG pCO2 at Pt Temp ABG pO2 at Pt Temp ABG HCO3 ABG O2 Sat (Measured) ABG O2 Content ABG Base Excess Steve Test O2 Delivery Device Oxygen Flow Rate Vent Mode Vent Rate Mechanical Rate Pressure Support Vent Sodium Potassium Chloride Carbon Dioxide Anion Gap BUN Creatinine Creat Clearance w eGFR POC Glucometer 34 62 88 Random Glucose Lactic Acid Calcium Phosphorus Magnesium Total Bilirubin AST ALT Alkaline Phosphatase Creatine Kinase Troponin I Total Protein Albumin 09/16/17 09/16/17 09/16/17 16:03 16:45 16:45 WBC RBC Hgb Hct MCV MCH MCHC RDW Plt Count MPV Neutrophils % Lymphocytes % Monocytes % Eosinophils % Basophils % Anticoagulation Therapy No Result Required. Puncture Site Right radial ABG pH 7.34 L ABG pCO2 at Pt Temp 38.6 ABG pO2 at Pt Temp 89.0 ABG HCO3 20.3 L ABG O2 Sat (Measured) 96.4 ABG O2 Content 13.5 L ABG Base Excess -4.5 L Steve Test Positive O2 Delivery Device Venti-mask Oxygen Flow Rate 50 Vent Mode No Result Required. Vent Rate No Result Required. Mechanical Rate No Result Required. Pressure Support Vent No Result Required. Sodium Potassium Chloride Carbon Dioxide Anion Gap BUN Creatinine Creat Clearance w eGFR POC Glucometer 140 157 Random Glucose Lactic Acid Calcium Phosphorus Magnesium Total Bilirubin AST ALT Alkaline Phosphatase Creatine Kinase Troponin I Total Protein Albumin 09/16/17 09/16/17 09/16/17 17:00 17:00 17:00 WBC 10.7 H D RBC 3.15 L Hgb 9.6 L Hct 28.7 L MCV 91.0 MCH 30.4 MCHC 33.4 RDW 14.9 Plt Count 502 H MPV 8.3 Neutrophils % 78.5 Lymphocytes % 12.5 D Monocytes % 6.3 Eosinophils % 2.4 D Basophils % 0.3 Anticoagulation Therapy Puncture Site ABG pH ABG pCO2 at Pt Temp ABG pO2 at Pt Temp ABG HCO3 ABG O2 Sat (Measured) ABG O2 Content ABG Base Excess Steve Test O2 Delivery Device Oxygen Flow Rate Vent Mode Vent Rate Mechanical Rate Pressure Support Vent Sodium 143 Potassium 4.8 Chloride 112 H Carbon Dioxide 22 Anion Gap 9 BUN 27 H Creatinine 1.9 H Creat Clearance w eGFR 27.55 POC Glucometer Random Glucose 161 H Lactic Acid Calcium 7.5 L Phosphorus 4.7 Magnesium 2.5 H Total Bilirubin 0.1 L D AST 24 ALT 20 Alkaline Phosphatase 317 H Creatine Kinase 62 Troponin I < 0.02 Total Protein 3.8 L Albumin 1.1 L 09/16/17 09/16/17 09/17/17 20:00 23:11 06:15 WBC 17.1 H D RBC 3.43 L Hgb 10.4 L Hct 30.6 L MCV 89.1 MCH 30.3 MCHC 34.0 RDW 14.8 Plt Count 577 H MPV 7.9 Neutrophils % Lymphocytes % Monocytes % Eosinophils % Basophils % Anticoagulation Therapy Puncture Site ABG pH ABG pCO2 at Pt Temp ABG pO2 at Pt Temp ABG HCO3 ABG O2 Sat (Measured) ABG O2 Content ABG Base Excess Steve Test O2 Delivery Device Oxygen Flow Rate Vent Mode Vent Rate Mechanical Rate Pressure Support Vent Sodium Potassium Chloride Carbon Dioxide Anion Gap BUN Creatinine Creat Clearance w eGFR POC Glucometer 95.74004 Random Glucose Lactic Acid 0.6 Calcium Phosphorus Magnesium Total Bilirubin AST ALT Alkaline Phosphatase Creatine Kinase Troponin I Total Protein Albumin 09/17/17 09/17/17 09/17/17 06:15 06:33 11:44 WBC RBC Hgb Hct MCV MCH MCHC RDW Plt Count MPV Neutrophils % Lymphocytes % Monocytes % Eosinophils % Basophils % Anticoagulation Therapy Puncture Site ABG pH ABG pCO2 at Pt Temp ABG pO2 at Pt Temp ABG HCO3 ABG O2 Sat (Measured) ABG O2 Content ABG Base Excess Steve Test O2 Delivery Device Oxygen Flow Rate Vent Mode Vent Rate Mechanical Rate Pressure Support Vent Sodium 144 Potassium 4.7 Chloride 110 H Carbon Dioxide 24 Anion Gap 10 BUN 25 H Creatinine 1.6 H Creat Clearance w eGFR 33.59 POC Glucometer 149.42799 50.14407 Random Glucose 145 H Lactic Acid Calcium 7.8 L Phosphorus 4.2 Magnesium 2.5 H Total Bilirubin 0.2 D AST 19 ALT 19 Alkaline Phosphatase 324 H Creatine Kinase Troponin I Total Protein 4.3 L Albumin 1.2 L 09/17/17 09/17/17 09/17/17 12:02 12:22 14:17 WBC RBC Hgb Hct MCV MCH MCHC RDW Plt Count MPV Neutrophils % Lymphocytes % Monocytes % Eosinophils % Basophils % Anticoagulation Therapy Puncture Site ABG pH ABG pCO2 at Pt Temp ABG pO2 at Pt Temp ABG HCO3 ABG O2 Sat (Measured) ABG O2 Content ABG Base Excess Steve Test O2 Delivery Device Oxygen Flow Rate Vent Mode Vent Rate Mechanical Rate Pressure Support Vent Sodium Potassium Chloride Carbon Dioxide Anion Gap BUN Creatinine Creat Clearance w eGFR POC Glucometer 63.25116 94.44001 82.29987 Random Glucose Lactic Acid Calcium Phosphorus Magnesium Total Bilirubin AST ALT Alkaline Phosphatase Creatine Kinase Troponin I Total Protein Albumin Active Medications Generic Name Dose Route Start Last Admin Trade Name Freq PRN Reason Stop Dose Admin Acetaminophen 650 mg 09/17/17 00:41 Tylenol - PO Q4H PRN MODERATE PAIN Amlodipine Besylate 10 mg 09/17/17 10:00 09/17/17 11:13 Norvasc - PO 10 mg DAILY [facility] Administration Aspirin 81 mg 09/17/17 10:00 09/17/17 11:16 Asa - PO 81 mg DAILY [facility] Administration Atorvastatin Calcium 40 mg 09/17/17 22:00 Lipitor - PO HS [facility] Clonidine 0.1 mg 09/17/17 10:00 09/17/17 11:14 Catapres - PO 0.1 mg BID [facility] Administration Clopidogrel Bisulfate 75 mg 09/17/17 10:00 09/17/17 11:14 Plavix - PO 75 mg DAILY [facility] Administration Diphenhydramine HCl 25 mg 09/17/17 00:41 Benadryl - PO Q8H PRN swelling Furosemide 20 mg 09/17/17 10:00 09/17/17 11:14 Lasix - PO 20 mg DAILY [facility] Administration Gabapentin 300 mg 09/17/17 06:00 09/17/17 14:02 Neurontin - PO 300 mg TID [facility] Administration Heparin Sodium (Porcine) 5,000 unit 09/17/17 10:00 09/17/17 11:13 Heparin - SQ 5,000 unit BID [facility] Administration Hydrochlorothiazide 12.5 mg 09/17/17 10:00 09/17/17 11:13 Hctz - PO 12.5 mg DAILY [facility] Administration IV Flush 4 ml 09/17/17 00:41 Triple Lumen Flush IVPUSH PRN PRN Protocol Piperacillin Sod/Tazobactam 50 mls @ 100 mls/hr 09/17/17 14:45 Sod 3.375 gm/ Dextrose IVPB Q8H-IV [facility] Protocol Insulin Aspart 1 vial 09/17/17 07:00 09/17/17 12:03 Novolog Vial Sliding Scale - SQ Not Given ACHS [facility] Protocol Metoprolol Tartrate 25 mg 09/17/17 10:00 09/17/17 11:13 Lopressor - PO 25 mg BID [facility] Administration Nicotine 14 mg 09/17/17 10:00 09/17/17 11:15 Nicoderm Patch - TD 14 mg DAILY [facility] Administration Oxycodone HCl 5 mg 09/17/17 00:41 09/17/17 08:18 Roxicodone - PO 5 mg Q6H PRN Administration PAIN LEVEL 6-10 Pantoprazole Sodium 20 mg 09/17/17 10:00 09/17/17 11:14 Protonix - PO 20 mg DAILY [facility] Administration Paroxetine HCl 10 mg 09/17/17 10:00 09/17/17 11:16 Paxil - PO 10 mg DAILY [facility] Administration Quetiapine Fumarate 200 mg 09/17/17 10:00 09/17/17 11:17 Seroquel - PO 200 mg BID [facility] Administration ASSESSMENT/PLAN: 52F with PMH of DM, htn, hld, PAD, s/p Right BKA (by Dr. Manzo in 2017), anxiety disorder, presenting with Left foot pain, scheduled for Left LE angioplasty on 09/17/[address] Manzo. Also, found to have acute/subacute CVA on Head CT. Transferred to ICU after Rapid Response for lethargy and hypoxia. CV -HR and BPs stable -continue meds Resp -satting 100% on 2L NC ID -sepsis (fever, leukocytosis of 17.1) 2/ unclear etiology -f/u UA, Ucx, Bcx, and CXR -ID on board, levaquin changed to zosyn for broader coverage Vascular -due to sepsis, vascular procedure cancelled and rescheduled for later date Neuro -lethargy improved -repeat CT head showed no hemorrhagic transformation Endo -another episode of hypoglycemia this am -levemir held for today FEN/ppx -po fluids -electrolytes wnl -diabetic/renal diet -heparin -protonix Stable for transfer back to floors. Case discussed with attending, Dr. Lubin. -Frank Cobian MD PGY1 ICU Team Visit type - Emergency Visit Emergency Visit: Yes ED Registration Date: 09/12/17 Care time: The patient presented to the Emergency Department on the above date and was hospitalized for further evaluation of their emergent condition. - New Patient This patient is new to me today: Yes Date on this admission: 09/18/17 - Critical Care Critical Care patient: Yes Total Critical Care Time (in minutes): 38 Critical Care Statement: The care of this patient involved high complexity decision making to prevent further life threatening deterioration of the patient 's condition and/or to evaluate & treat vital organ system(s) failure or risk of failure.
[2017-09-17 16:06] LABS: URINE APPEARANCE CLEAR; URINE BILIRUBIN NEGATIVE (<2.0 mg/dL); URINE BLOOD NEGATIVE (NEGATIVE); URINE COLOR STRAW; URINE GLUCOSE (UA) 1+ (NEGATIVE); URINE KETONE NEGATIVE (NEGATIVE); URINE LEUK ESTERASE NEGATIVE (NEGATIVE); URINE NITRITE NEGATIVE (NEGATIVE); URINE UROBILINOGEN NEGATIVE mg/dL (0.2-1.0)
[2017-09-17] MEDS ORDERED: PT OWN MED DRAWER 7, Y5N ONE (16:06)
[2017-09-17 16:11] LABS: URINE PROTEIN 2+ (NEGATIVE)
[2017-09-17] MEDS: PIPERACILLIN/TAZOB 3.375 GM 3.375 GM in DEXTROSE 5%-WATER - 50 ML IVPB SCH ×2 (16:11→16:59)
[2017-09-17 16:47] LABS: URINE BACTERIA RARE /hpf (NONE SEEN)
[2017-09-17] MEDS: HEPARIN NA (PORCINE) 5,000 UNITS/ML 1ML VIAL SQ SCH (21:31)
[2017-09-17] MEDS: METOPROLOL TARTRATE 25 MG TABLET (FP) PO SCH (21:31)
[2017-09-17] MEDS: cloNIDine HCL 0.1 MG TABLET PO SCH (21:32)
[2017-09-17] MEDS: ATORVASTATIN CA 40 MG TABLET (FP) PO SCH (21:32)
[2017-09-17] MEDS: oxyCODONE HCL 5 MG TABLET PO PRN (21:32)
[2017-09-17] MEDS ORDERED: ATORVASTATIN CA 40 MG TABLET (FP) PO SCH (22:00)
[2017-09-17] MEDS: QUEtiapine FUMARATE 200 MG TABLET PO SCH (22:10)
[2017-09-18] MEDS: PIPERACILLIN/TAZOB 3.375 GM 3.375 GM in DEXTROSE 5%-WATER - 50 ML IVPB SCH ×3 (01:18→17:17)
[2017-09-18] MEDS: GABAPENTIN 300 MG CAPSULE (FP) PO SCH ×3 (05:48→21:21)
[2017-09-18] MEDS: INSULIN SLIDING SCALE (NOVOLOG) 1 VIAL SQ SCH ×4 (06:06→21:26)
[2017-09-18] MEDS: oxyCODONE HCL 5 MG TABLET PO PRN ×2 (07:27→17:25)
[2017-09-18 08:00] LABS: BASO % 0.7 % (0-2.0); EOS % 3.9 % (0-4.5); HEMATOCRIT 30.2 % (32.4-45.2); HEMOGLOBIN 10.2 GM/dL (10.7-15.3); MCH 30.3 pg (25.7-33.7); MCHC 33.8 g/dl (32.0-36.0); MEAN CELL VOLUME 89.7 fl (80-96); MEAN PLT VOLUME 8.2 fl (7.5-11.1); MONO % 7.5 % (3.8-10.2); NEUT % 56.9 % (42.8-82.8); PLATELET COUNT 571 K/MM3 (134-434); RBC 3.36 M/mm3 (3.60-5.2); RDW 14.8 % (11.6-15.6); WHITE BLOOD COUNT 8.8 K/mm3 (4.0-10.0)
[2017-09-18 08:41] LABS: CHLORIDE 110 mmol/L (98-107); SODIUM 142 mmol/L (136-145)
[2017-09-18 08:56] LABS: ALBUMIN 1.1 g/dl (3.4-5.0); ALK PHOS 309 U/L (45-117); ANION GAP 10 (8-16); BILIRUBIN,TOTAL 0.2 mg/dL (0.2-1.0); BLOOD UREA NITROGEN 20 mg/dL (7-18); CO2 22 mmol/L (21-32); CREATININE 1.4 mg/dL (0.55-1.02); GLUCOSE,RANDOM 142 mg/dL (74-106); MAGNESIUM 2.2 mg/dL (1.8-2.4); PHOSPHOROUS 3.8 mg/dL (2.5-4.9); SGOT/AST 19 U/L (15-37); SGPT/ALT 17 U/L (12-78); TOT PROT 4.1 g/dl (6.4-8.2)
[2017-09-18] MEDS ORDERED: PT OWN MED DRAWER 7, Y5N ONE ×2 (09:04→21:18)
[2017-09-18] MEDS: ASPIRIN 81 MG CHEWABLE TABLETS PO SCH (09:18)
[2017-09-18] MEDS: HYDROCHLOROTHIAZIDE 12.5 MG CAPSULE (FP) PO SCH (09:18)
[2017-09-18] MEDS: PANTOPRAZOLE 20 MG TABLET (FP) PO SCH (09:18)
[2017-09-18] MEDS: METOPROLOL TARTRATE 25 MG TABLET (FP) PO SCH ×2 (09:18→21:21)
[2017-09-18] MEDS: PARoxetine HCL 10 MG TABLET (FP) PO SCH (09:18)
[2017-09-18] MEDS: amLODIPine BESYLATE 10 MG TABLET (FP) PO SCH (09:18)
[2017-09-18] MEDS: FUROSEMIDE 20 MG TABLET (FP) PO SCH (09:18)
[2017-09-18] MEDS: cloNIDine HCL 0.1 MG TABLET PO SCH ×2 (09:18→21:21)
[2017-09-18] MEDS: CLOPIDOGREL BISULFATE 75 MG TABLET (FP) PO SCH (09:19)
[2017-09-18] MEDS: QUEtiapine FUMARATE 200 MG TABLET PO SCH ×2 (09:19→21:20)
[2017-09-18] MEDS: HEPARIN NA (PORCINE) 5,000 UNITS/ML 1ML VIAL SQ SCH ×2 (09:19→21:21)
[2017-09-18] MEDS: NICOTINE 14 MG/24 HOURS TOPICAL PATCH TD SCH (09:19)
--- NOTE | 2017-09-18 09:23 | PN ---
Progress Note (short form) - Note Progress Note: Vascular Surgery WBC is 8.8 today. Pt with left toe dry gangrene that is stable. Recent US showed popliteal artery disease. Please have pt follow up in the office on September 28 - so that we can do her angiogram/angioplasty that week. Call for appt prior to DC please -- [phone] Jose dillard DO
[2017-09-18 10:40] LABS: URINE CREATININE 24.5 mg/dL (20-320)
[2017-09-18] MEDS ORDERED: INSULIN (NOVOLOG) ASPART 100 UNITS/ML 10ML VIAL ONE (10:49)
--- NOTE | 2017-09-18 14:01 | PN ---
Progress Note, Physician History of Present Illness: Transferred out of ICU More awake and alert Offers no complaints Occasional Cough noted Breathing non-labored Temps down Afebrile WBC now WNL Cultures pending - Current Medication List Current Medications: Active Medications Acetaminophen (Tylenol -) 650 mg PO Q4H PRN PRN Reason: MODERATE PAIN Amlodipine Besylate (Norvasc -) 10 mg PO DAILY [facility] Last Admin: 09/18/17 09:18 Dose: 10 mg Aspirin (Asa -) 81 mg PO DAILY [facility] Last Admin: 09/18/17 09:18 Dose: 81 mg Atorvastatin Calcium (Lipitor -) 40 mg PO HS [facility] Last Admin: 09/17/17 21:32 Dose: 40 mg Clonidine (Catapres -) 0.1 mg PO BID [facility] Last Admin: 09/18/17 09:18 Dose: 0.1 mg Clopidogrel Bisulfate (Plavix -) 75 mg PO DAILY [facility] Last Admin: 09/18/17 09:19 Dose: 75 mg Diphenhydramine HCl (Benadryl -) 25 mg PO Q8H PRN PRN Reason: swelling Furosemide (Lasix -) 20 mg PO DAILY [facility] Last Admin: 09/18/17 09:18 Dose: 20 mg Gabapentin (Neurontin -) 300 mg PO TID [facility] Last Admin: 09/18/17 05:48 Dose: 300 mg Heparin Sodium (Porcine) (Heparin -) 5,000 unit SQ BID [facility] Last Admin: 09/18/17 09:19 Dose: 5,000 unit Hydrochlorothiazide (Hctz -) 12.5 mg PO DAILY [facility] Last Admin: 09/18/17 09:18 Dose: 12.5 mg IV Flush (Triple Lumen Flush) 4 ml IVPUSH PRN PRN PRN Reason: Protocol Piperacillin Sod/Tazobactam (Sod 3.375 gm/ Dextrose) 50 mls @ 100 mls/hr IVPB Q8H-IV [facility] PRN Reason: Protocol Last Admin: 09/18/17 10:39 Dose: 100 mls/hr Insulin Aspart (Novolog Vial Sliding Scale -) 1 vial SQ ACHS [facility] PRN Reason: Protocol Last Admin: 09/18/17 10:51 Dose: 2 unit Metoprolol Tartrate (Lopressor -) 25 mg PO BID [facility] Last Admin: 09/18/17 09:18 Dose: 25 mg Nicotine (Nicoderm Patch -) 14 mg TD DAILY [facility] Last Admin: 09/18/17 09:19 Dose: 14 mg Oxycodone HCl (Roxicodone -) 5 mg PO Q6H PRN PRN Reason: PAIN LEVEL 6-10 Last Admin: 09/18/17 07:27 Dose: 5 mg Pantoprazole Sodium (Protonix -) 20 mg PO DAILY [facility] Last Admin: 09/18/17 09:18 Dose: 20 mg Paroxetine HCl (Paxil -) 10 mg PO DAILY [facility] Last Admin: 09/18/17 09:18 Dose: 10 mg Quetiapine Fumarate (Seroquel -) 200 mg PO BID [facility] Last Admin: 09/18/17 09:19 Dose: 200 mg - Objective Vital Signs: Vital Signs Temperature 97.8 F 09/18/17 11:12 Pulse Rate 63 09/18/17 11:12 Respiratory Rate 18 09/18/17 11:12 Blood Pressure 142/71 09/18/17 11:12 O2 Sat by Pulse Oximetry (%) 95 09/18/17 09:00 Constitutional: Yes: No Distress Eyes: Yes: Conjunctiva Clear Cardiovascular: Yes: Regular Rate and Rhythm, S1, S2 Respiratory: Yes: Diminished Gastrointestinal: Yes: Normal Bowel Sounds, Soft. No: Tenderness Extremities: Yes: Other (+dry gangrene 3rd toe) Labs: CBC, BMP 09/18/17 06:30 09/18/17 06:30 INR, PTT INR 0.97 (0.82-1.09) 09/10/17 13:25 Assessment/Plan Fever/Leukocytosis improved ? aspiration Possible sepsis secondary to foot source ? CVA PVD S/P R BKA Azotemia + Urine c/s Pseudomonas Await sepsis workup Continue Zosyn Aspiration precautions
--- NOTE | 2017-09-18 14:26 | PN ---
Progress Note, Physician History of Present Illness: Pt seen and examined at bedside. She is more awake and alert. - Current Medication List Current Medications: Active Medications Acetaminophen (Tylenol -) 650 mg PO Q4H PRN PRN Reason: MODERATE PAIN Amlodipine Besylate (Norvasc -) 10 mg PO DAILY [facility] Last Admin: 09/18/17 09:18 Dose: 10 mg Aspirin (Asa -) 81 mg PO DAILY [facility] Last Admin: 09/18/17 09:18 Dose: 81 mg Atorvastatin Calcium (Lipitor -) 40 mg PO HS [facility] Last Admin: 09/17/17 21:32 Dose: 40 mg Clonidine (Catapres -) 0.1 mg PO BID [facility] Last Admin: 09/18/17 09:18 Dose: 0.1 mg Clopidogrel Bisulfate (Plavix -) 75 mg PO DAILY [facility] Last Admin: 09/18/17 09:19 Dose: 75 mg Diphenhydramine HCl (Benadryl -) 25 mg PO Q8H PRN PRN Reason: swelling Furosemide (Lasix -) 20 mg PO DAILY [facility] Last Admin: 09/18/17 09:18 Dose: 20 mg Gabapentin (Neurontin -) 300 mg PO TID [facility] Last Admin: 09/18/17 05:48 Dose: 300 mg Heparin Sodium (Porcine) (Heparin -) 5,000 unit SQ BID [facility] Last Admin: 09/18/17 09:19 Dose: 5,000 unit Hydrochlorothiazide (Hctz -) 12.5 mg PO DAILY [facility] Last Admin: 09/18/17 09:18 Dose: 12.5 mg IV Flush (Triple Lumen Flush) 4 ml IVPUSH PRN PRN PRN Reason: Protocol Piperacillin Sod/Tazobactam (Sod 3.375 gm/ Dextrose) 50 mls @ 100 mls/hr IVPB Q8H-IV [facility] PRN Reason: Protocol Last Admin: 09/18/17 10:39 Dose: 100 mls/hr Insulin Aspart (Novolog Vial Sliding Scale -) 1 vial SQ ACHS [facility] PRN Reason: Protocol Last Admin: 09/18/17 10:51 Dose: 2 unit Metoprolol Tartrate (Lopressor -) 25 mg PO BID [facility] Last Admin: 09/18/17 09:18 Dose: 25 mg Nicotine (Nicoderm Patch -) 14 mg TD DAILY [facility] Last Admin: 09/18/17 09:19 Dose: 14 mg Oxycodone HCl (Roxicodone -) 5 mg PO Q6H PRN PRN Reason: PAIN LEVEL 6-10 Last Admin: 09/18/17 07:27 Dose: 5 mg Pantoprazole Sodium (Protonix -) 20 mg PO DAILY [facility] Last Admin: 09/18/17 09:18 Dose: 20 mg Paroxetine HCl (Paxil -) 10 mg PO DAILY [facility] Last Admin: 09/18/17 09:18 Dose: 10 mg Quetiapine Fumarate (Seroquel -) 200 mg PO BID [facility] Last Admin: 09/18/17 09:19 Dose: 200 mg - Objective Vital Signs: Vital Signs Temperature 97.8 F 09/18/17 11:12 Pulse Rate 63 09/18/17 11:12 Respiratory Rate 18 09/18/17 11:12 Blood Pressure 142/71 09/18/17 11:12 O2 Sat by Pulse Oximetry (%) 95 09/18/17 09:00 Constitutional: Yes: Calm Eyes: Yes: Conjunctiva Clear HENT: Yes: Atraumatic Neck: Yes: Supple Cardiovascular: Yes: S1, S2 Respiratory: Yes: CTA Bilaterally Gastrointestinal: Yes: Soft Genitourinary: Yes: WNL Musculoskeletal: Yes: Other (bka, dry gangrene) Edema: No Neurological: Yes: Oriented Psychiatric: Yes: Oriented Labs: CBC, BMP 09/18/17 06:30 09/18/17 06:30 INR, PTT INR 0.97 (0.82-1.09) 09/10/17 13:25 - ....Imaging Chest X-ray: Report Reviewed Problem List - Problems (1) CKD (chronic kidney disease) Code(s): N18.9 - CHRONIC KIDNEY DISEASE, UNSPECIFIED (2) Gangrene associated with diabetes mellitus Code(s): E11.52 - TYPE 2 DIABETES W DIABETIC PERIPHERAL ANGIOPATHY W GANGRENE (3) Hypoglycemia associated with diabetes Code(s): E11.649 - TYPE 2 DIABETES MELLITUS WITH HYPOGLYCEMIA WITHOUT COMA (4) Tobacco dependence Code(s): F17.200 - NICOTINE DEPENDENCE, UNSPECIFIED, UNCOMPLICATED Assessment/Plan Current Medications Generic Name Dose Route Start Last Admin Trade Name Freq PRN Reason Stop Dose Admin Acetaminophen 650 mg 09/17/17 20:14 Tylenol - PO Q4H PRN MODERATE PAIN Amlodipine Besylate 10 mg 09/18/17 10:00 09/18/17 09:18 Norvasc - PO 10 mg DAILY [facility] Administration Aspirin 81 mg 09/18/17 10:00 09/18/17 09:18 Asa - PO 81 mg DAILY [facility] Administration Atorvastatin Calcium 40 mg 09/17/17 22:00 09/17/17 21:32 Lipitor - PO 40 mg HS [facility] Administration Clonidine 0.1 mg 09/17/17 22:00 09/18/17 09:18 Catapres - PO 0.1 mg BID [facility] Administration Clopidogrel Bisulfate 75 mg 09/18/17 10:00 09/18/17 09:19 Plavix - PO 75 mg DAILY [facility] Administration Diphenhydramine HCl 25 mg 09/17/17 20:14 Benadryl - PO Q8H PRN swelling Furosemide 20 mg 09/18/17 10:00 09/18/17 09:18 Lasix - PO 20 mg DAILY [facility] Administration Gabapentin 300 mg 09/17/17 22:00 09/18/17 05:48 Neurontin - PO 300 mg TID [facility] Administration Heparin Sodium (Porcine) 5,000 unit 09/17/17 22:00 09/18/17 09:19 Heparin - SQ 5,000 unit BID [facility] Administration Hydrochlorothiazide 12.5 mg 09/18/17 10:00 09/18/17 09:18 Hctz - PO 12.5 mg DAILY [facility] Administration IV Flush 4 ml 09/17/17 20:14 Triple Lumen Flush IVPUSH PRN PRN Protocol Piperacillin Sod/Tazobactam 50 mls @ 100 mls/hr 09/17/17 14:45 09/18/17 10:39 Sod 3.375 gm/ Dextrose IVPB 100 mls/hr Q8H-IV [facility] Administration Protocol Insulin Aspart 1 vial 09/17/17 22:00 09/18/17 10:51 Novolog Vial Sliding Scale - SQ 2 unit ACHS [facility] Administration Protocol Metoprolol Tartrate 25 mg 09/17/17 22:00 09/18/17 09:18 Lopressor - PO 25 mg BID [facility] Administration Nicotine 14 mg 09/18/17 10:00 09/18/17 09:19 Nicoderm Patch - TD 14 mg DAILY [facility] Administration Oxycodone HCl 5 mg 09/17/17 20:14 09/18/17 07:27 Roxicodone - PO 5 mg Q6H PRN Administration PAIN LEVEL 6-10 Pantoprazole Sodium 20 mg 09/18/17 10:00 09/18/17 09:18 Protonix - PO 20 mg DAILY [facility] Administration Paroxetine HCl 10 mg 09/18/17 10:00 09/18/17 09:18 Paxil - PO 10 mg DAILY [facility] Administration Quetiapine Fumarate 200 mg 09/17/17 22:00 09/18/17 09:19 Seroquel - PO 200 mg BID [facility] Administration Impression 1. CKD 2. PVD 3. altered mental status 4. DM 5. HTN 6. hypoglycemia 7. HLD 8. UTI Plan - follow renal ultrasound - will give another 20 mg of lasix, may need to increase to 40 mg daily - repeat labs in am - check prt to [place] g[place] ratio - pt has not followed as outpt - monitor bp Dr Kitchen
[2017-09-18] MEDS ORDERED: FUROSEMIDE 20 MG TABLET (FP) PO ONE (15:00)
[2017-09-18] MEDS: ATORVASTATIN CA 40 MG TABLET (FP) PO SCH (21:20)
[2017-09-19] MEDS: PIPERACILLIN/TAZOB 3.375 GM 3.375 GM in DEXTROSE 5%-WATER - 50 ML IVPB SCH ×2 (01:09→10:27)
--- NOTE | 2017-09-19 02:06 | PN ---
Progress Note, Physician Chief Complaint: COMFORTABLE IN BED NO COMPLAINT History of Present Illness: ,IDDM HYPERGLYCEMIA L TOE GANGRENE,PAD,WILL NEED ANGIOGRAM OUTPATIENT - Current Medication List Current Medications: Active Medications Acetaminophen (Tylenol -) 650 mg PO Q4H PRN PRN Reason: MODERATE PAIN Amlodipine Besylate (Norvasc -) 10 mg PO DAILY [facility] Last Admin: 09/18/17 09:18 Dose: 10 mg Aspirin (Asa -) 81 mg PO DAILY [facility] Last Admin: 09/18/17 09:18 Dose: 81 mg Atorvastatin Calcium (Lipitor -) 40 mg PO HS [facility] Last Admin: 09/18/17 21:20 Dose: 40 mg Clonidine (Catapres -) 0.1 mg PO BID [facility] Last Admin: 09/18/17 21:21 Dose: 0.1 mg Clopidogrel Bisulfate (Plavix -) 75 mg PO DAILY [facility] Last Admin: 09/18/17 09:19 Dose: 75 mg Diphenhydramine HCl (Benadryl -) 25 mg PO Q8H PRN PRN Reason: swelling Furosemide (Lasix -) 20 mg PO DAILY [facility] Last Admin: 09/18/17 09:18 Dose: 20 mg Gabapentin (Neurontin -) 300 mg PO TID [facility] Last Admin: 09/18/17 21:21 Dose: 300 mg Heparin Sodium (Porcine) (Heparin -) 5,000 unit SQ BID [facility] Last Admin: 09/18/17 21:21 Dose: 5,000 unit Hydrochlorothiazide (Hctz -) 12.5 mg PO DAILY [facility] Last Admin: 09/18/17 09:18 Dose: 12.5 mg IV Flush (Triple Lumen Flush) 4 ml IVPUSH PRN PRN PRN Reason: Protocol Piperacillin Sod/Tazobactam (Sod 3.375 gm/ Dextrose) 50 mls @ 100 mls/hr IVPB Q8H-IV [facility] PRN Reason: Protocol Last Admin: 09/19/17 01:09 Dose: 100 mls/hr Insulin Aspart (Novolog Vial Sliding Scale -) 1 vial SQ ACHS [facility] PRN Reason: Protocol Last Admin: 09/18/17 21:26 Dose: Not Given Metoprolol Tartrate (Lopressor -) 25 mg PO BID [facility] Last Admin: 09/18/17 21:21 Dose: 25 mg Nicotine (Nicoderm Patch -) 14 mg TD DAILY [facility] Last Admin: 09/18/17 09:19 Dose: 14 mg Oxycodone HCl (Roxicodone -) 5 mg PO Q6H PRN PRN Reason: PAIN LEVEL 6-10 Last Admin: 09/18/17 17:25 Dose: 5 mg Pantoprazole Sodium (Protonix -) 20 mg PO DAILY [facility] Last Admin: 09/18/17 09:18 Dose: 20 mg Paroxetine HCl (Paxil -) 10 mg PO DAILY [facility] Last Admin: 09/18/17 09:18 Dose: 10 mg Quetiapine Fumarate (Seroquel -) 200 mg PO BID [facility] Last Admin: 09/18/17 21:20 Dose: 200 mg - Objective Vital Signs: Vital Signs Temperature 98 F 09/18/17 18:47 Pulse Rate 75 09/18/17 18:47 Respiratory Rate 18 09/18/17 18:47 Blood Pressure 112/67 09/18/17 18:47 O2 Sat by Pulse Oximetry (%) 95 09/18/17 09:00 Constitutional: Yes: Well Nourished, Calm Eyes: Yes: EOM Intact HENT: Yes: Normocephalic Neck: Yes: Trachea Midline Cardiovascular: Yes: Regular Rate and Rhythm Respiratory: Yes: CTA Bilaterally Gastrointestinal: Yes: Normal Bowel Sounds ...Rectal Exam: Yes: Deferred Genitourinary: Yes: WNL Breast(s): Yes: WNL Musculoskeletal: Yes: Muscle Pain, Muscle Weakness Extremities: Yes: Delayed Capillary Refill Edema: No Peripheral Pulses WNL: No Peripheral Pulses: Left Doralis Pedis: 1+, Right Dorsalis Pedis: 1+, Left Femoral: 1+, Right Femoral: 1+ Labs: CBC, BMP 09/18/17 06:30 09/18/17 06:30 INR, PTT INR 0.97 (0.82-1.09) 09/10/17 13:25 Problem List - Problems (1) 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 Code(s): E10.610 - TYPE 1 DIABETES MELLITUS W DIABETIC NEUROPATHIC ARTHROPATHY (2) Gangrene associated with diabetes mellitus Code(s): E11.52 - TYPE 2 DIABETES W DIABETIC PERIPHERAL ANGIOPATHY W GANGRENE (3) Abdominal pain Code(s): R10.9 - UNSPECIFIED ABDOMINAL PAIN Qualifiers: Abdominal location: unspecified location Qualified Code(s): R10.9 - Unspecified abdominal pain (4) Chronic pancreatitis Code(s): K86.1 - OTHER CHRONIC PANCREATITIS (5) Diabetes Code(s): E11.9 - TYPE 2 DIABETES MELLITUS WITHOUT COMPLICATIONS Qualifiers: Diabetes mellitus type: type 2 Assessment/Plan Current Active Problems PATRICIA (acute kidney injury) (Acute) Altered mental status (Acute) Anxiety (Acute) CKD (chronic kidney disease) (Acute) CVA (cerebrovascular accident) (Acute) Chest pain (Acute) Gangrene associated with diabetes mellitus (Acute) Hypoglycemia associated with diabetes (Acute) Leukocytosis (Acute) Poor compliance with medication (Acute) 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 (Acute) Abnormal Lab Results 09/17/17 09/18/17 09/18/17 10:21 06:30 06:30 RBC 3.36 L Hgb 10.2 L Hct 30.2 L Plt Count 571 H Chloride 110 H BUN 20 H Creatinine 1.4 H Random Glucose 142 H Calcium 8.0 L Alkaline Phosphatase 309 H Total Protein 4.1 L Albumin 1.1 L U Random Total Protein 255 H Laboratory Results - last 24 hr 09/17/17 09/18/17 09/18/17 10:21 05:49 06:30 WBC 8.8 D RBC 3.36 L Hgb 10.2 L Hct 30.2 L MCV 89.7 MCH 30.3 MCHC 33.8 RDW 14.8 Plt Count 571 H MPV 8.2 Neutrophils % 56.9 D Lymphocytes % 31.0 D Monocytes % 7.5 Eosinophils % 3.9 Basophils % 0.7 Sodium Potassium Chloride Carbon Dioxide Anion Gap BUN Creatinine Creat Clearance w eGFR POC Glucometer 161 Random Glucose Calcium Phosphorus Magnesium Total Bilirubin AST ALT Alkaline Phosphatase Total Protein Albumin U Random Total Protein 255 H Urine Creatinine 24.5 Protein/Creatinin Ratio 1 09/18/17 09/18/17 09/18/17 06:30 10:47 16:17 WBC RBC Hgb Hct MCV MCH MCHC RDW Plt Count MPV Neutrophils % Lymphocytes % Monocytes % Eosinophils % Basophils % Sodium 142 Potassium 5.0 Chloride 110 H Carbon Dioxide 22 Anion Gap 10 BUN 20 H Creatinine 1.4 H Creat Clearance w eGFR 39.19 POC Glucometer 230 221 Random Glucose 142 H Calcium 8.0 L Phosphorus 3.8 Magnesium 2.2 Total Bilirubin 0.2 AST 19 ALT 17 Alkaline Phosphatase 309 H Total Protein 4.1 L Albumin 1.1 L U Random Total Protein Urine Creatinine Protein/Creatinin Ratio 09/18/17 21:25 WBC RBC Hgb Hct MCV MCH MCHC RDW Plt Count MPV Neutrophils % Lymphocytes % Monocytes % Eosinophils % Basophils % Sodium Potassium Chloride Carbon Dioxide Anion Gap BUN Creatinine Creat Clearance w eGFR POC Glucometer 192 Random Glucose Calcium Phosphorus Magnesium Total Bilirubin AST ALT Alkaline Phosphatase Total Protein Albumin U Random Total Protein Urine Creatinine Protein/Creatinin Ratio Laboratory Tests 09/18/17 09/18/17 09/18/17 05:49 06:30 10:47 BUN 20 H Creatinine 1.4 H POC Glucometer 161 230 09/18/17 16:17 BUN Creatinine POC Glucometer 221 PLAN: BGM AC HS LEVEMIR 20 UNITS AM WILL NEED TITRATION LEVEMIR INSULIN DOSES
[2017-09-19] MEDS: GABAPENTIN 300 MG CAPSULE (FP) PO SCH ×3 (05:49→21:14)
[2017-09-19] MEDS: INSULIN SLIDING SCALE (NOVOLOG) 1 VIAL SQ SCH ×4 (06:01→21:26)
[2017-09-19] MEDS: INSULIN DETEMIR 100 UNITS/ML MDV SQ SCH (06:01)
[2017-09-19] MEDS ORDERED: PT OWN MED DRAWER 7, Y5N ONE ×2 (10:19→20:04)
[2017-09-19] MEDS: HEPARIN NA (PORCINE) 5,000 UNITS/ML 1ML VIAL SQ SCH ×2 (10:27→21:14)
[2017-09-19] MEDS: cloNIDine HCL 0.1 MG TABLET PO SCH ×2 (10:27→21:13)
[2017-09-19] MEDS: METOPROLOL TARTRATE 25 MG TABLET (FP) PO SCH ×2 (10:27→21:14)
[2017-09-19] MEDS: NICOTINE 14 MG/24 HOURS TOPICAL PATCH TD SCH (10:27)
[2017-09-19] MEDS: FUROSEMIDE 20 MG TABLET (FP) PO SCH (10:27)
[2017-09-19] MEDS: PARoxetine HCL 10 MG TABLET (FP) PO SCH (10:27)
[2017-09-19] MEDS: PANTOPRAZOLE 20 MG TABLET (FP) PO SCH (10:27)
[2017-09-19] MEDS: HYDROCHLOROTHIAZIDE 12.5 MG CAPSULE (FP) PO SCH (10:27)
[2017-09-19] MEDS: amLODIPine BESYLATE 10 MG TABLET (FP) PO SCH (10:27)
[2017-09-19] MEDS: CLOPIDOGREL BISULFATE 75 MG TABLET (FP) PO SCH (10:27)
[2017-09-19] MEDS: ASPIRIN 81 MG CHEWABLE TABLETS PO SCH (10:27)
[2017-09-19] MEDS: QUEtiapine FUMARATE 200 MG TABLET PO SCH ×2 (10:28→21:13)
[2017-09-19] MEDS: oxyCODONE HCL 5 MG TABLET PO PRN ×2 (10:29→20:08)
--- NOTE | 2017-09-19 10:34 | PN ---
Progress Note, Physician History of Present Illness: awake and alert Offers no complaints No cough noted Breathing non-labored Temps down Afebrile WBC now WNL - Current Medication List Current Medications: Active Medications Acetaminophen (Tylenol -) 650 mg PO Q4H PRN PRN Reason: MODERATE PAIN Amlodipine Besylate (Norvasc -) 10 mg PO DAILY [facility] Last Admin: 09/19/17 10:27 Dose: 10 mg Aspirin (Asa -) 81 mg PO DAILY [facility] Last Admin: 09/19/17 10:27 Dose: 81 mg Atorvastatin Calcium (Lipitor -) 40 mg PO HS [facility] Last Admin: 09/18/17 21:20 Dose: 40 mg Clonidine (Catapres -) 0.1 mg PO BID [facility] Last Admin: 09/19/17 10:27 Dose: 0.1 mg Clopidogrel Bisulfate (Plavix -) 75 mg PO DAILY [facility] Last Admin: 09/19/17 10:27 Dose: 75 mg Diphenhydramine HCl (Benadryl -) 25 mg PO Q8H PRN PRN Reason: swelling Furosemide (Lasix -) 20 mg PO DAILY [facility] Last Admin: 09/19/17 10:27 Dose: 20 mg Gabapentin (Neurontin -) 300 mg PO TID [facility] Last Admin: 09/19/17 05:49 Dose: Not Given Heparin Sodium (Porcine) (Heparin -) 5,000 unit SQ BID [facility] Last Admin: 09/19/17 10:27 Dose: 5,000 unit Hydrochlorothiazide (Hctz -) 12.5 mg PO DAILY [facility] Last Admin: 09/19/17 10:27 Dose: 12.5 mg IV Flush (Triple Lumen Flush) 4 ml IVPUSH PRN PRN PRN Reason: Protocol Piperacillin Sod/Tazobactam (Sod 3.375 gm/ Dextrose) 50 mls @ 100 mls/hr IVPB Q8H-IV [facility] PRN Reason: Protocol Last Admin: 09/19/17 10:27 Dose: 100 mls/hr Insulin Aspart (Novolog Vial Sliding Scale -) 1 vial SQ ACHS [facility] PRN Reason: Protocol Last Admin: 09/19/17 06:01 Dose: Not Given Insulin Detemir (Levemir Vial) 20 units SQ AM [facility] Last Admin: 09/19/17 06:01 Dose: Not Given Metoprolol Tartrate (Lopressor -) 25 mg PO BID [facility] Last Admin: 09/19/17 10:27 Dose: 25 mg Nicotine (Nicoderm Patch -) 14 mg TD DAILY [facility] Last Admin: 09/19/17 10:27 Dose: 14 mg Oxycodone HCl (Roxicodone -) 5 mg PO Q6H PRN PRN Reason: PAIN LEVEL 6-10 Last Admin: 09/19/17 10:29 Dose: 5 mg Pantoprazole Sodium (Protonix -) 20 mg PO DAILY [facility] Last Admin: 09/19/17 10:27 Dose: 20 mg Paroxetine HCl (Paxil -) 10 mg PO DAILY [facility] Last Admin: 09/19/17 10:27 Dose: 10 mg Quetiapine Fumarate (Seroquel -) 200 mg PO BID [facility] Last Admin: 09/19/17 10:28 Dose: 200 mg - Objective Vital Signs: Vital Signs Temperature 98.1 F 09/19/17 09:00 Pulse Rate 70 09/19/17 09:00 Respiratory Rate 18 09/19/17 09:00 Blood Pressure 129/59 09/19/17 09:00 O2 Sat by Pulse Oximetry (%) 95 09/18/17 21:00 Constitutional: Yes: No Distress Eyes: Yes: Conjunctiva Clear Cardiovascular: Yes: Regular Rate and Rhythm, S1, S2 Respiratory: Yes: CTA Bilaterally Gastrointestinal: Yes: Normal Bowel Sounds, Soft. No: Tenderness Extremities: Yes: Other (dry gangrene , 3rd toe) Edema: Yes Edema: LLE: 1+, RLE: 1+ Labs: CBC, BMP 09/18/17 06:30 09/18/17 06:30 INR, PTT INR 0.97 (0.82-1.09) 09/10/17 13:25 Assessment/Plan Fever/Leukocytosis improved ? aspiration Possible sepsis secondary to foot source ? CVA PVD S/P R BKA Azotemia + Urine c/s Pseudomonas D/C zosyn Levaquin 500mg po qd x 3d
--- NOTE | 2017-09-19 10:35 | DS ---
Physical Examination Vital Signs: Vital Signs Temperature 98.1 F 09/19/17 09:00 Pulse Rate 70 09/19/17 09:00 Respiratory Rate 18 09/19/17 09:00 Blood Pressure 129/59 09/19/17 09:00 O2 Sat by Pulse Oximetry (%) 95 09/18/17 21:00 Cardiovascular: Yes: S1, S2 Respiratory: Yes: Regular, CTA Bilaterally Gastrointestinal: Yes: Normal Bowel Sounds, Soft Labs: CBC, BMP 09/18/17 06:30 09/18/17 06:30 Discharge Summary Reason For Visit: GANGRENE ASSOCIATED WITH DIABETES Current Active Problems PATRICIA (acute kidney injury) (Acute) Altered mental status (Acute) Anxiety (Acute) CKD (chronic kidney disease) (Acute) CVA (cerebrovascular accident) (Acute) Chest pain (Acute) Gangrene associated with diabetes mellitus (Acute) Hypoglycemia associated with diabetes (Acute) Leukocytosis (Acute) Poor compliance with medication (Acute) 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 Dillard), HTN, HLD, DM, PAD, anxiety disorder, who presents to the ED c/o L foot pain over the past week. As per pt, a week ago, she suddenly developed 10/10, sharp pain and a "pressure like sensation" in her LLE, specifically her L foot. Pt states that the pain was a/w edema and erythema, and is worsened with weight-bearing. For this reason, pt went to [facility], however was recommended L BKA by Dr. Sifuentes. She left [place], and came to [facility] for another opinion. Pt is requesting tx from Dr. Dillard, since he performed her R BKA - at this time, surgical intervention is not needed emergently. Pt states that ever since her recent trip to [place] two days ago, she has had diffuse chest pain a/w SOB, that came about when she discussed the BKA. She believes it is related to anxiety. During this time, pt also endorses diaphoresis and nausea with intermittent emesis. Denies DIAMOND, fever , chills, or changes in urinary or bowel function. Recent Travel: none PAST MEDICAL HISTORY: as above PAST SURGICAL HISTORY: s/p R BKA (2017; Dr. 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 Smoking: does not smoke currently. had smoked 1 ppd for 5 yrs previously Alcohol: quit twenty years ago; social drinker Drugs: denies - Problems (1) Gangrene associated with diabetes mellitus Assessment/Plan: -LLE -seen by Dr Dillard--Outpatient follow up -Pain management -Angio LLE -nephrology consult Code(s): E11.52 - TYPE 2 DIABETES W DIABETIC PERIPHERAL ANGIOPATHY W GANGRENE (2) Diabetes Assessment/Plan: -Uncontrolled -non compliant outpatient -RD consult -Endocrinology consult -Decrease Levemir to avoid afternoon dips -BGM -Diabetic diet Code(s): E11.9 - TYPE 2 DIABETES MELLITUS WITHOUT COMPLICATIONS Qualifiers: Diabetes mellitus type: type 2 (3) CVA (cerebrovascular accident) Assessment/Plan: -seen by Neurology -Repeat CT head no change left frontal infarct, no hemorrhage Code(s): I63.9 - CEREBRAL INFARCTION, UNSPECIFIED (4) PATRICIA (acute kidney injury) Assessment/Plan: -improved -Nephrology consult noted Code(s): N17.9 - ACUTE KIDNEY FAILURE, UNSPECIFIED (5) Leukocytosis Assessment/Plan: -nl today -repeat BC noted -on PO levaquin -ID on board Code(s): D72.829 - ELEVATED WHITE BLOOD CELL COUNT, UNSPECIFIED dc home and follow up with dr dillard--pt understands and agrees with plan Condition: Stable - Instructions Diet, Activity, Other Instructions: -Follow up with Dr Dillard outpatient -Diabetic diet -Follow up with PCP within 2 weeks -Follow up with endocrinology, Jesu Manuel outpatient within next 4 weeks. -Take Levemir 20 units in AM, 7 units at bedtime Referrals: Katy Naidu MD [Primary Care Provider] - Jesu Farrell MD [Staff Physician] - Jose Dillard MD [Staff Physician] - - Home Medications Comprehensive Discharge Medication List: Ambulatory Orders Aspirin [ASA -] 81 mg PO DAILY 05/04/15 Acetaminophen [Tylenol .Regular Strength -] 650 mg PO Q6H PRN #0 tablet Gabapentin [Neurontin -] 300 mg PO TID 09/08/16 Hydrochlorothiazide [Hctz -] 12.5 mg PO DAILY cap 09/08/16 Amlodipine Besylate [Norvasc -] 10 mg PO DAILY 09/10/17 Clopidogrel Bisulfate [Plavix -] 75 mg PO DAILY 09/10/17 Diphenhydramine HCl [Benadryl Capsule -] 25 mg PO Q8H 09/10/17 Furosemide [Lasix -] 20 mg PO DAILY 09/10/17 Insulin (Novolog) [Novolog Flexpen -] 12 units SQ TID 09/10/17 Paroxetine HCl [Paxil -] 10 mg PO DAILY 09/10/17 Quetiapine Fumarate [Seroquel -] 200 mg PO BID 09/10/17 cloNIDine HCL [Catapres -] 0.1 mg PO BID 09/10/17 Insulin Detemir [Levemir Flextouch] 100 unit SQ ASDIR #1 insuln.pen 09/12/17 Metoprolol Tartrate [Lopressor -] 25 mg PO BID #60 tablet 09/12/17 Pen Needle, Diabetic [Bd Ultra-Fine Pen Needle] 1 each MC BID #100 dis.needle
--- NOTE | 2017-09-19 18:34 | PN ---
Progress Note, Physician History of Present Illness: Pt seen and examined at bedside. She is awake and alert. She denies shortness of breath. - Current Medication List Current Medications: Active Medications Acetaminophen (Tylenol -) 650 mg PO Q4H PRN PRN Reason: MODERATE PAIN Amlodipine Besylate (Norvasc -) 10 mg PO DAILY [facility] Last Admin: 09/19/17 10:27 Dose: 10 mg Aspirin (Asa -) 81 mg PO DAILY [facility] Last Admin: 09/19/17 10:27 Dose: 81 mg Atorvastatin Calcium (Lipitor -) 40 mg PO HS [facility] Last Admin: 09/18/17 21:20 Dose: 40 mg Clonidine (Catapres -) 0.1 mg PO BID [facility] Last Admin: 09/19/17 10:27 Dose: 0.1 mg Clopidogrel Bisulfate (Plavix -) 75 mg PO DAILY [facility] Last Admin: 09/19/17 10:27 Dose: 75 mg Diphenhydramine HCl (Benadryl -) 25 mg PO Q8H PRN PRN Reason: swelling Furosemide (Lasix -) 20 mg PO DAILY [facility] Last Admin: 09/19/17 10:27 Dose: 20 mg Gabapentin (Neurontin -) 300 mg PO TID [facility] Last Admin: 09/19/17 14:44 Dose: 300 mg Heparin Sodium (Porcine) (Heparin -) 5,000 unit SQ BID [facility] Last Admin: 09/19/17 10:27 Dose: 5,000 unit Hydrochlorothiazide (Hctz -) 12.5 mg PO DAILY [facility] Last Admin: 09/19/17 10:27 Dose: 12.5 mg IV Flush (Triple Lumen Flush) 4 ml IVPUSH PRN PRN PRN Reason: Protocol Insulin Aspart (Novolog Vial Sliding Scale -) 1 vial SQ ACHS [facility] PRN Reason: Protocol Last Admin: 09/19/17 17:10 Dose: Not Given Insulin Detemir (Levemir Vial) 20 units SQ AM [facility] Last Admin: 09/19/17 06:01 Dose: Not Given Levofloxacin (Levaquin -) 500 mg PO DAILY@0600 [facility] Last Admin: 09/19/17 14:44 Dose: 500 mg Metoprolol Tartrate (Lopressor -) 25 mg PO BID [facility] Last Admin: 09/19/17 10:27 Dose: 25 mg Nicotine (Nicoderm Patch -) 14 mg TD DAILY [facility] Last Admin: 09/19/17 10:27 Dose: 14 mg Oxycodone HCl (Roxicodone -) 5 mg PO Q6H PRN PRN Reason: PAIN LEVEL 6-10 Last Admin: 09/19/17 10:29 Dose: 5 mg Pantoprazole Sodium (Protonix -) 20 mg PO DAILY [facility] Last Admin: 09/19/17 10:27 Dose: 20 mg Paroxetine HCl (Paxil -) 10 mg PO DAILY [facility] Last Admin: 09/19/17 10:27 Dose: 10 mg Quetiapine Fumarate (Seroquel -) 200 mg PO BID [facility] Last Admin: 09/19/17 10:28 Dose: 200 mg - Objective Vital Signs: Vital Signs Temperature 98.1 F 09/19/17 09:00 Pulse Rate 70 09/19/17 09:00 Respiratory Rate 18 09/19/17 09:00 Blood Pressure 129/59 09/19/17 09:00 O2 Sat by Pulse Oximetry (%) 96 09/19/17 10:30 Constitutional: Yes: Calm Eyes: Yes: Conjunctiva Clear HENT: Yes: Atraumatic Cardiovascular: Yes: S1, S2 Respiratory: Yes: CTA Bilaterally Gastrointestinal: Yes: Normal Bowel Sounds, Soft Genitourinary: Yes: WNL Musculoskeletal: Yes: Other (bka) Edema: No Neurological: Yes: Oriented Psychiatric: Yes: Oriented Labs: CBC, BMP 09/18/17 06:30 09/18/17 06:30 INR, PTT INR 0.97 (0.82-1.09) 09/10/17 13:25 Problem List - Problems (1) CKD (chronic kidney disease) Code(s): N18.9 - CHRONIC KIDNEY DISEASE, UNSPECIFIED (2) Gangrene associated with diabetes mellitus Code(s): E11.52 - TYPE 2 DIABETES W DIABETIC PERIPHERAL ANGIOPATHY W GANGRENE (3) Hypoglycemia associated with diabetes Code(s): E11.649 - TYPE 2 DIABETES MELLITUS WITH HYPOGLYCEMIA WITHOUT COMA (4) Tobacco dependence Code(s): F17.200 - NICOTINE DEPENDENCE, UNSPECIFIED, UNCOMPLICATED Assessment/Plan Current Medications Generic Name Dose Route Start Last Admin Trade Name Freq PRN Reason Stop Dose Admin Acetaminophen 650 mg 09/17/17 20:14 Tylenol - PO Q4H PRN MODERATE PAIN Amlodipine Besylate 10 mg 09/18/17 10:00 09/19/17 10:27 Norvasc - PO 10 mg DAILY [facility] Administration Aspirin 81 mg 09/18/17 10:00 09/19/17 10:27 Asa - PO 81 mg DAILY [facility] Administration Atorvastatin Calcium 40 mg 09/17/17 22:00 09/18/17 21:20 Lipitor - PO 40 mg HS [facility] Administration Clonidine 0.1 mg 09/17/17 22:00 09/19/17 10:27 Catapres - PO 0.1 mg BID [facility] Administration Clopidogrel Bisulfate 75 mg 09/18/17 10:00 09/19/17 10:27 Plavix - PO 75 mg DAILY [facility] Administration Diphenhydramine HCl 25 mg 09/17/17 20:14 Benadryl - PO Q8H PRN swelling Furosemide 20 mg 09/18/17 10:00 09/19/17 10:27 Lasix - PO 20 mg DAILY [facility] Administration Gabapentin 300 mg 09/17/17 22:00 09/19/17 14:44 Neurontin - PO 300 mg TID [facility] Administration Heparin Sodium (Porcine) 5,000 unit 09/17/17 22:00 09/19/17 10:27 Heparin - SQ 5,000 unit BID [facility] Administration Hydrochlorothiazide 12.5 mg 09/18/17 10:00 09/19/17 10:27 Hctz - PO 12.5 mg DAILY [facility] Administration IV Flush 4 ml 09/17/17 20:14 Triple Lumen Flush IVPUSH PRN PRN Protocol Insulin Aspart 1 vial 09/17/17 22:00 09/19/17 17:10 Novolog Vial Sliding Scale - SQ Not Given ACHS [facility] Protocol Insulin Detemir 20 units 09/19/17 07:00 09/19/17 06:01 Levemir Vial SQ Not Given AM [facility] Levofloxacin 500 mg 09/19/17 11:30 09/19/17 14:44 Levaquin - PO 500 mg DAILY@0600 [facility] Administration Metoprolol Tartrate 25 mg 09/17/17 22:00 09/19/17 10:27 Lopressor - PO 25 mg BID [facility] Administration Nicotine 14 mg 09/18/17 10:00 09/19/17 10:27 Nicoderm Patch - TD 14 mg DAILY [facility] Administration Oxycodone HCl 5 mg 09/17/17 20:14 09/19/17 10:29 Roxicodone - PO 5 mg Q6H PRN Administration PAIN LEVEL 6-10 Pantoprazole Sodium 20 mg 09/18/17 10:00 09/19/17 10:27 Protonix - PO 20 mg DAILY [facility] Administration Paroxetine HCl 10 mg 09/18/17 10:00 09/19/17 10:27 Paxil - PO 10 mg DAILY [facility] Administration Quetiapine Fumarate 200 mg 09/17/17 22:00 09/19/17 10:28 Seroquel - PO 200 mg BID [facility] Administration Laboratory Tests 09/17/17 09/18/17 10:21 06:30 Protein/Creatinin Ratio 1 [place] Screen Pending Impression 1. CKD 2. PVD 3. altered mental status 4. DM 5. HTN 6. hypoglycemia 7. HLD 8. UTI Plan - no new labs - check bmp in am - cont lasix - discussed diet with pt - vascular input appreciated - outpt renal workup Dr Kitchen
[2017-09-19] MEDS: ACETAMINOPHEN 325 MG TABLET (FP) PO PRN (20:17)
[2017-09-19] MEDS: ATORVASTATIN CA 40 MG TABLET (FP) PO SCH (21:13)
[2017-09-20] MEDS: oxyCODONE HCL 5 MG TABLET PO PRN ×3 (04:08→17:21)
[2017-09-20] MEDS: ACETAMINOPHEN 325 MG TABLET (FP) PO PRN (04:08)
[2017-09-20] MEDS: GABAPENTIN 300 MG CAPSULE (FP) PO SCH ×3 (05:03→22:14)
[2017-09-20] MEDS: INSULIN SLIDING SCALE (NOVOLOG) 1 VIAL SQ SCH ×4 (06:43→22:14)
[2017-09-20] MEDS: INSULIN DETEMIR 100 UNITS/ML MDV SQ SCH (06:43)
--- NOTE | 2017-09-20 09:06 | DS ---
Physical Examination Vital Signs: Vital Signs Temperature 98.2 F 09/20/17 06:00 Pulse Rate 69 09/20/17 06:00 Respiratory Rate 20 09/20/17 06:00 Blood Pressure 116/69 09/20/17 06:00 O2 Sat by Pulse Oximetry (%) 96 09/19/17 21:00 Cardiovascular: Yes: S1, S2 Respiratory: Yes: Regular, CTA Bilaterally Gastrointestinal: Yes: Normal Bowel Sounds, Soft Labs: CBC, BMP 09/18/17 06:30 <Katy Naidu - Last Filed: 09/20/17 09:07> Vital Signs: Vital Signs Temperature 98 F 09/21/17 10:00 Pulse Rate 69 09/21/17 10:00 Respiratory Rate 20 09/21/17 10:00 Blood Pressure 126/68 09/21/17 10:00 O2 Sat by Pulse Oximetry (%) 97 09/20/17 21:00 Labs: CBC, BMP 09/18/17 06:30 09/20/17 07:40 <Lula Pimentel - Last Filed: 09/21/17 13:03> Discharge Summary Reason For Visit: GANGRENE ASSOCIATED WITH DIABETES Current Active Problems PATRICIA (acute kidney injury) (Acute) Altered mental status (Acute) Anxiety (Acute) CKD (chronic kidney disease) (Acute) CVA (cerebrovascular accident) (Acute) Chest pain (Acute) Gangrene associated with diabetes mellitus (Acute) Hypoglycemia associated with diabetes (Acute) Leukocytosis (Acute) Poor compliance with medication (Acute) 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 Dillard), HTN, HLD, DM, PAD, anxiety disorder, who presents to the ED c/o L foot pain over the past week. As per pt, a week ago, she suddenly developed 10/10, sharp pain and a "pressure like sensation" in her LLE, specifically her L foot. Pt states that the pain was a/w edema and erythema, and is worsened with weight-bearing. For this reason, pt went to [facility], however was recommended L BKA by Dr. Sifuentes. She left A, and came to [facility] for another opinion. Pt is requesting tx from Dr. Dillard, since he performed her R BKA - at this time, surgical intervention is not needed emergently. Pt states that ever since her recent trip to [place] two days ago, she has had diffuse chest pain a/w SOB, that came about when she discussed the BKA. She believes it is related to anxiety. During this time, pt also endorses diaphoresis and nausea with intermittent emesis. Denies DIAMOND, fever , chills, or changes in urinary or bowel function. Recent Travel: none PAST MEDICAL HISTORY: as above PAST SURGICAL HISTORY: s/p R BKA (2017; Dr. 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 Smoking: does not smoke currently. had smoked 1 ppd for 5 yrs previously Alcohol: quit twenty years ago; social drinker Drugs: denies - Problems (1) Gangrene associated with diabetes mellitus Assessment/Plan: -LLE -seen by Dr Dillard--Outpatient follow up -Pain management -Angio LLE -nephrology consult Code(s): E11.52 - TYPE 2 DIABETES W DIABETIC PERIPHERAL ANGIOPATHY W GANGRENE (2) Diabetes Assessment/Plan: -Uncontrolled -non compliant outpatient -RD consult -Endocrinology consult -Decrease Levemir to avoid afternoon dips -BGM -Diabetic diet Code(s): E11.9 - TYPE 2 DIABETES MELLITUS WITHOUT COMPLICATIONS Qualifiers: Diabetes mellitus type: type 2 (3) CVA (cerebrovascular accident) Assessment/Plan: -seen by Neurology -Repeat CT head no change left frontal infarct, no hemorrhage Code(s): I63.9 - CEREBRAL INFARCTION, UNSPECIFIED (4) PATRICIA (acute kidney injury) Assessment/Plan: -improved -Nephrology consult noted Code(s): N17.9 - ACUTE KIDNEY FAILURE, UNSPECIFIED (5) Leukocytosis Assessment/Plan: -nl today -repeat BC noted -on PO levaquin -ID on board Code(s): D72.829 - ELEVATED WHITE BLOOD CELL COUNT, UNSPECIFIED dc home and follow up with dr dillard--pt understands and agrees with plan - Home Medications Comprehensive Discharge Medication List: Ambulatory Orders Aspirin [ASA -] 81 mg PO DAILY 05/04/15 Acetaminophen [Tylenol .Regular Strength -] 650 mg PO Q6H PRN #0 tablet Gabapentin [Neurontin -] 300 mg PO TID 09/08/16 Hydrochlorothiazide [Hctz -] 12.5 mg PO DAILY cap 09/08/16 Amlodipine Besylate [Norvasc -] 10 mg PO DAILY 09/10/17 Clopidogrel Bisulfate [Plavix -] 75 mg PO DAILY 09/10/17 Diphenhydramine HCl [Benadryl Capsule -] 25 mg PO Q8H 09/10/17 Furosemide [Lasix -] 20 mg PO DAILY 09/10/17 Insulin (Novolog) [Novolog Flexpen -] 12 units SQ TID 09/10/17 Paroxetine HCl [Paxil -] 10 mg PO DAILY 09/10/17 Quetiapine Fumarate [Seroquel -] 200 mg PO BID 09/10/17 cloNIDine HCL [Catapres -] 0.1 mg PO BID 09/10/17 Insulin Detemir [Levemir Flextouch] 100 unit SQ ASDIR #1 insuln.pen 09/12/17 Metoprolol Tartrate [Lopressor -] 25 mg PO BID #60 tablet 09/12/17 Pen Needle, Diabetic [Bd Ultra-Fine Pen Needle] 1 each MC BID #100 dis.needle levoFLOXacin [Levaquin -] 500 mg PO DAILY #3 tablet 09/19/17 <Katy Naidu - Last Filed: 09/20/17 09:07> Current Active Problems PATRICIA (acute kidney injury) (Acute) Altered mental status (Acute) Anxiety (Acute) CKD (chronic kidney disease) (Acute) CVA (cerebrovascular accident) (Acute) Chest pain (Acute) Gangrene associated with diabetes mellitus (Acute) Hypoglycemia associated with diabetes (Acute) Leukocytosis (Acute) Poor compliance with medication (Acute) 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 (Acute) - Home Medications Comprehensive Discharge Medication List: Ambulatory Orders Aspirin [ASA -] 81 mg PO DAILY 05/04/15 Acetaminophen [Tylenol .Regular Strength -] 650 mg PO Q6H PRN #0 tablet Gabapentin [Neurontin -] 300 mg PO TID 09/08/16 Hydrochlorothiazide [Hctz -] 12.5 mg PO DAILY cap 09/08/16 Amlodipine Besylate [Norvasc -] 10 mg PO DAILY 09/10/17 Clopidogrel Bisulfate [Plavix -] 75 mg PO DAILY 09/10/17 Diphenhydramine HCl [Benadryl Capsule -] 25 mg PO Q8H 09/10/17 Furosemide [Lasix -] 20 mg PO DAILY 09/10/17 Insulin (Novolog) [Novolog Flexpen -] 12 units SQ TID 09/10/17 Paroxetine HCl [Paxil -] 10 mg PO DAILY 09/10/17 Quetiapine Fumarate [Seroquel -] 200 mg PO BID 09/10/17 cloNIDine HCL [Catapres -] 0.1 mg PO BID 09/10/17 Insulin Detemir [Levemir Flextouch] 100 unit SQ ASDIR #1 insuln.pen 09/12/17 Metoprolol Tartrate [Lopressor -] 25 mg PO BID #60 tablet 09/12/17 Pen Needle, Diabetic [Bd Ultra-Fine Pen Needle] 1 each MC BID #100 dis.needle levoFLOXacin [Levaquin -] 500 mg PO DAILY #3 tablet 09/19/17 <Lula Pimentel - Last Filed: 09/21/17 13:03> Condition: Stable - Instructions Diet, Activity, Other Instructions: -Follow up with Dr Dillard outpatient -Diabetic diet -Follow up with PCP within 2 weeks -Follow up with endocrinology, Jesu Manuel outpatient within next 4 weeks. -Take Levemir 20 units in AM, 7 units at bedtime SEE DR [facility]ILLARD [facility] SUR[facility]ERY September AT HIS OFFICE FOR SAMUEL/SURGERY FOLLOW UP Referrals: Katy Naidu MD [Primary Care Provider] - Jesu Farrell MD [Staff Physician] - Jose Dillard MD [Staff Physician] -
[2017-09-20 09:09] LABS: ANION GAP 6 (8-16); BLOOD UREA NITROGEN 21 mg/dL (7-18); CHLORIDE 108 mmol/L (98-107); CO2 26 mmol/L (21-32); CREATININE 1.6 mg/dL (0.55-1.02); GLUCOSE,RANDOM 214 mg/dL (74-106); POTASSIUM 4.8 mmol/L (3.5-5.1); SODIUM 140 mmol/L (136-145)
[2017-09-20] MEDS ORDERED: INSULIN (NOVOLOG) ASPART 100 UNITS/ML 10ML VIAL ONE (10:51)
[2017-09-20] MEDS ORDERED: PT OWN MED DRAWER 7, Y5N ONE ×2 (10:51→22:16)
[2017-09-20] MEDS: HEPARIN NA (PORCINE) 5,000 UNITS/ML 1ML VIAL SQ SCH ×2 (11:12→22:14)
[2017-09-20] MEDS: HYDROCHLOROTHIAZIDE 12.5 MG CAPSULE (FP) PO SCH (11:13)
[2017-09-20] MEDS: amLODIPine BESYLATE 10 MG TABLET (FP) PO SCH (11:13)
[2017-09-20] MEDS: METOPROLOL TARTRATE 25 MG TABLET (FP) PO SCH ×2 (11:13→22:14)
[2017-09-20] MEDS: cloNIDine HCL 0.1 MG TABLET PO SCH ×2 (11:13→22:14)
[2017-09-20] MEDS: FUROSEMIDE 20 MG TABLET (FP) PO SCH (11:14)
[2017-09-20] MEDS: NICOTINE 14 MG/24 HOURS TOPICAL PATCH TD SCH (11:14)
[2017-09-20] MEDS: QUEtiapine FUMARATE 200 MG TABLET PO SCH ×2 (11:14→22:14)
[2017-09-20] MEDS: CLOPIDOGREL BISULFATE 75 MG TABLET (FP) PO SCH (11:14)
[2017-09-20] MEDS: PARoxetine HCL 10 MG TABLET (FP) PO SCH (11:14)
[2017-09-20] MEDS: PANTOPRAZOLE 20 MG TABLET (FP) PO SCH (11:14)
[2017-09-20] MEDS: ASPIRIN 81 MG CHEWABLE TABLETS PO SCH (11:14)
--- NOTE | 2017-09-20 17:19 | PN ---
Progress Note, Physician History of Present Illness: Pt seen and examined at bedside. She is awake and appears comfortable. She denies shortness of breath. - Current Medication List Current Medications: Active Medications Acetaminophen (Tylenol -) 650 mg PO Q4H PRN PRN Reason: MODERATE PAIN Last Admin: 09/20/17 04:08 Dose: 650 mg Amlodipine Besylate (Norvasc -) 10 mg PO DAILY [facility] Last Admin: 09/20/17 11:13 Dose: Not Given Aspirin (Asa -) 81 mg PO DAILY [facility] Last Admin: 09/20/17 11:14 Dose: 81 mg Atorvastatin Calcium (Lipitor -) 40 mg PO HS [facility] Last Admin: 09/19/17 21:13 Dose: 40 mg Clonidine (Catapres -) 0.1 mg PO BID [facility] Last Admin: 09/20/17 11:13 Dose: Not Given Clopidogrel Bisulfate (Plavix -) 75 mg PO DAILY [facility] Last Admin: 09/20/17 11:14 Dose: 75 mg Diphenhydramine HCl (Benadryl -) 25 mg PO Q8H PRN PRN Reason: swelling Furosemide (Lasix -) 20 mg PO DAILY [facility] Last Admin: 09/20/17 11:14 Dose: 20 mg Gabapentin (Neurontin -) 300 mg PO TID [facility] Last Admin: 09/20/17 14:37 Dose: 300 mg Heparin Sodium (Porcine) (Heparin -) 5,000 unit SQ BID [facility] Last Admin: 09/20/17 11:12 Dose: 5,000 unit Hydrochlorothiazide (Hctz -) 12.5 mg PO DAILY [facility] Last Admin: 09/20/17 11:13 Dose: Not Given IV Flush (Triple Lumen Flush) 4 ml IVPUSH PRN PRN PRN Reason: Protocol Insulin Aspart (Novolog Vial Sliding Scale -) 1 vial SQ ACHS [facility] PRN Reason: Protocol Last Admin: 09/20/17 16:54 Dose: Not Given Insulin Detemir (Levemir Vial) 20 units SQ AM [facility] Last Admin: 09/20/17 06:43 Dose: 20 units Levofloxacin (Levaquin -) 500 mg PO DAILY@0600 [facility] Last Admin: 09/20/17 05:03 Dose: 500 mg Metoprolol Tartrate (Lopressor -) 25 mg PO BID [facility] Last Admin: 09/20/17 11:13 Dose: Not Given Nicotine (Nicoderm Patch -) 14 mg TD DAILY [facility] Last Admin: 09/20/17 11:14 Dose: 14 mg Oxycodone HCl (Roxicodone -) 5 mg PO Q6H PRN PRN Reason: PAIN LEVEL 6-10 Last Admin: 09/20/17 11:22 Dose: 5 mg Pantoprazole Sodium (Protonix -) 20 mg PO DAILY [facility] Last Admin: 09/20/17 11:14 Dose: 20 mg Paroxetine HCl (Paxil -) 10 mg PO DAILY [facility] Last Admin: 09/20/17 11:14 Dose: 10 mg Quetiapine Fumarate (Seroquel -) 200 mg PO BID [facility] Last Admin: 09/20/17 11:14 Dose: 200 mg - Objective Vital Signs: Vital Signs Temperature 98.6 F 09/20/17 14:00 Pulse Rate 74 09/20/17 14:00 Respiratory Rate 18 09/20/17 14:00 Blood Pressure 100/61 09/20/17 14:00 O2 Sat by Pulse Oximetry (%) 97 09/20/17 09:20 Constitutional: Yes: Calm Eyes: Yes: Conjunctiva Clear HENT: Yes: Atraumatic Neck: Yes: Supple Cardiovascular: Yes: S1, S2 Respiratory: Yes: CTA Bilaterally Gastrointestinal: Yes: Soft Genitourinary: Yes: WNL Musculoskeletal: Yes: Other (bka) Edema: No Neurological: Yes: Oriented Psychiatric: Yes: Oriented Labs: CBC, BMP 09/18/17 06:30 09/20/17 07:40 INR, PTT INR 0.97 (0.82-1.09) 09/10/17 13:25 Problem List - Problems (1) CKD (chronic kidney disease) Code(s): N18.9 - CHRONIC KIDNEY DISEASE, UNSPECIFIED (2) Gangrene associated with diabetes mellitus Code(s): E11.52 - TYPE 2 DIABETES W DIABETIC PERIPHERAL ANGIOPATHY W GANGRENE (3) Hypoglycemia associated with diabetes Code(s): E11.649 - TYPE 2 DIABETES MELLITUS WITH HYPOGLYCEMIA WITHOUT COMA (4) Tobacco dependence Code(s): F17.200 - NICOTINE DEPENDENCE, UNSPECIFIED, UNCOMPLICATED Assessment/Plan Current Medications Generic Name Dose Route Start Last Admin Trade Name Freq PRN Reason Stop Dose Admin Acetaminophen 650 mg 09/17/17 20:14 09/20/17 04:08 Tylenol - PO 650 mg Q4H PRN Administration MODERATE PAIN Amlodipine Besylate 10 mg 09/18/17 10:00 09/20/17 11:13 Norvasc - PO Not Given DAILY [facility] Aspirin 81 mg 09/18/17 10:00 09/20/17 11:14 Asa - PO 81 mg DAILY [facility] Administration Atorvastatin Calcium 40 mg 09/17/17 22:00 09/19/17 21:13 Lipitor - PO 40 mg HS [facility] Administration Clonidine 0.1 mg 09/17/17 22:00 09/20/17 11:13 Catapres - PO Not Given BID [facility] Clopidogrel Bisulfate 75 mg 09/18/17 10:00 09/20/17 11:14 Plavix - PO 75 mg DAILY [facility] Administration Diphenhydramine HCl 25 mg 09/17/17 20:14 Benadryl - PO Q8H PRN swelling Furosemide 20 mg 09/18/17 10:00 09/20/17 11:14 Lasix - PO 20 mg DAILY [facility] Administration Gabapentin 300 mg 09/17/17 22:00 09/20/17 14:37 Neurontin - PO 300 mg TID [facility] Administration Heparin Sodium (Porcine) 5,000 unit 09/17/17 22:00 09/20/17 11:12 Heparin - SQ 5,000 unit BID [facility] Administration Hydrochlorothiazide 12.5 mg 09/18/17 10:00 09/20/17 11:13 Hctz - PO Not Given DAILY [facility] IV Flush 4 ml 09/17/17 20:14 Triple Lumen Flush IVPUSH PRN PRN Protocol Insulin Aspart 1 vial 09/17/17 22:00 09/20/17 16:54 Novolog Vial Sliding Scale - SQ Not Given ACHS [facility] Protocol Insulin Detemir 20 units 09/19/17 07:00 09/20/17 06:43 Levemir Vial SQ 20 units AM [facility] Administration Levofloxacin 500 mg 09/19/17 11:30 09/20/17 05:03 Levaquin - PO 500 mg DAILY@0600 [facility] Administration Metoprolol Tartrate 25 mg 09/17/17 22:00 09/20/17 11:13 Lopressor - PO Not Given BID [facility] Nicotine 14 mg 09/18/17 10:00 09/20/17 11:14 Nicoderm Patch - TD 14 mg DAILY [facility] Administration Oxycodone HCl 5 mg 09/17/17 20:14 09/20/17 11:22 Roxicodone - PO 5 mg Q6H PRN Administration PAIN LEVEL 6-10 Pantoprazole Sodium 20 mg 09/18/17 10:00 09/20/17 11:14 Protonix - PO 20 mg DAILY [facility] Administration Paroxetine HCl 10 mg 09/18/17 10:00 09/20/17 11:14 Paxil - PO 10 mg DAILY [facility] Administration Quetiapine Fumarate 200 mg 09/17/17 22:00 09/20/17 11:14 Seroquel - PO 200 mg BID [facility] Administration Laboratory Tests 09/18/17 06:30 [place] Screen Negative Impression 1. CKD 2. PVD 3. altered mental status 4. DM 5. HTN 6. hypoglycemia 7. HLD 8. UTI Plan - renal workup as outpt - pt going to rehab - cont wound care - will need to follow with vascular as well - can cont diuretics - pt is not compliant with diet Dr Kitchen
[2017-09-20] MEDS: ATORVASTATIN CA 40 MG TABLET (FP) PO SCH (22:14)
[2017-09-21] MEDS: ACETAMINOPHEN 325 MG TABLET (FP) PO PRN ×2 (00:45→06:32)
[2017-09-21] MEDS: oxyCODONE HCL 5 MG TABLET PO PRN ×4 (00:45→21:10)
[2017-09-21] MEDS: GABAPENTIN 300 MG CAPSULE (FP) PO SCH ×3 (05:18→21:08)
[2017-09-21] MEDS: INSULIN SLIDING SCALE (NOVOLOG) 1 VIAL SQ SCH ×4 (06:31→21:09)
[2017-09-21] MEDS: INSULIN DETEMIR 100 UNITS/ML MDV SQ SCH (06:31)
[2017-09-21] MEDS: CLOPIDOGREL BISULFATE 75 MG TABLET (FP) PO SCH (12:06)
[2017-09-21] MEDS: ASPIRIN 81 MG CHEWABLE TABLETS PO SCH (12:06)
[2017-09-21] MEDS: cloNIDine HCL 0.1 MG TABLET PO SCH ×2 (12:06→21:08)
[2017-09-21] MEDS: FUROSEMIDE 20 MG TABLET (FP) PO SCH (12:06)
[2017-09-21] MEDS: HYDROCHLOROTHIAZIDE 12.5 MG CAPSULE (FP) PO SCH (12:06)
[2017-09-21] MEDS: METOPROLOL TARTRATE 25 MG TABLET (FP) PO SCH ×2 (12:06→21:09)
[2017-09-21] MEDS: PANTOPRAZOLE 20 MG TABLET (FP) PO SCH (12:06)
[2017-09-21] MEDS: QUEtiapine FUMARATE 200 MG TABLET PO SCH ×2 (12:06→21:57)
[2017-09-21] MEDS: amLODIPine BESYLATE 10 MG TABLET (FP) PO SCH (12:06)
[2017-09-21] MEDS: NICOTINE 14 MG/24 HOURS TOPICAL PATCH TD SCH (12:07)
[2017-09-21] MEDS: HEPARIN NA (PORCINE) 5,000 UNITS/ML 1ML VIAL SQ SCH ×2 (12:07→21:09)
[2017-09-21] MEDS: PARoxetine HCL 10 MG TABLET (FP) PO SCH (12:07)
--- NOTE | 2017-09-21 15:35 | PN ---
Progress Note, Physician History of Present Illness: Pt seen and examined at bedside. She is awake and alert. She denies shortness of breath. - Current Medication List Current Medications: Active Medications Acetaminophen (Tylenol -) 650 mg PO Q4H PRN PRN Reason: MODERATE PAIN Last Admin: 09/21/17 06:32 Dose: 650 mg Amlodipine Besylate (Norvasc -) 10 mg PO DAILY [facility] Last Admin: 09/21/17 12:06 Dose: 10 mg Aspirin (Asa -) 81 mg PO DAILY [facility] Last Admin: 09/21/17 12:06 Dose: 81 mg Atorvastatin Calcium (Lipitor -) 40 mg PO HS [facility] Last Admin: 09/20/17 22:14 Dose: 40 mg Clonidine (Catapres -) 0.1 mg PO BID [facility] Last Admin: 09/21/17 12:06 Dose: 0.1 mg Clopidogrel Bisulfate (Plavix -) 75 mg PO DAILY [facility] Last Admin: 09/21/17 12:06 Dose: 75 mg Diphenhydramine HCl (Benadryl -) 25 mg PO Q8H PRN PRN Reason: swelling Furosemide (Lasix -) 20 mg PO DAILY [facility] Last Admin: 09/21/17 12:06 Dose: 20 mg Gabapentin (Neurontin -) 300 mg PO TID [facility] Last Admin: 09/21/17 13:37 Dose: 300 mg Heparin Sodium (Porcine) (Heparin -) 5,000 unit SQ BID [facility] Last Admin: 09/21/17 12:07 Dose: 5,000 unit Hydrochlorothiazide (Hctz -) 12.5 mg PO DAILY [facility] Last Admin: 09/21/17 12:06 Dose: 12.5 mg IV Flush (Triple Lumen Flush) 4 ml IVPUSH PRN PRN PRN Reason: Protocol Insulin Aspart (Novolog Vial Sliding Scale -) 1 vial SQ ACHS [facility] PRN Reason: Protocol Last Admin: 09/21/17 13:37 Dose: Not Given Insulin Detemir (Levemir Vial) 20 units SQ AM [facility] Last Admin: 09/21/17 06:31 Dose: Not Given Levofloxacin (Levaquin -) 500 mg PO DAILY@0600 [facility] Last Admin: 09/21/17 05:18 Dose: 500 mg Metoprolol Tartrate (Lopressor -) 25 mg PO BID [facility] Last Admin: 09/21/17 12:06 Dose: 25 mg Nicotine (Nicoderm Patch -) 14 mg TD DAILY [facility] Last Admin: 09/21/17 12:07 Dose: 14 mg Pantoprazole Sodium (Protonix -) 20 mg PO DAILY [facility] Last Admin: 09/21/17 12:06 Dose: 20 mg Paroxetine HCl (Paxil -) 10 mg PO DAILY [facility] Last Admin: 09/21/17 12:07 Dose: 10 mg Quetiapine Fumarate (Seroquel -) 200 mg PO BID [facility] Last Admin: 09/21/17 12:06 Dose: 200 mg - Objective Vital Signs: Vital Signs Temperature 99.5 F 09/21/17 14:00 Pulse Rate 75 09/21/17 14:00 Respiratory Rate 16 09/21/17 14:00 Blood Pressure 152/83 09/21/17 14:00 O2 Sat by Pulse Oximetry (%) 97 09/21/17 09:00 Constitutional: Yes: Calm Eyes: Yes: Conjunctiva Clear HENT: Yes: Atraumatic Cardiovascular: Yes: S1, S2 Respiratory: Yes: CTA Bilaterally Gastrointestinal: Yes: Soft Genitourinary: Yes: WNL Musculoskeletal: Yes: Other (bka) Edema: No Neurological: Yes: Oriented Psychiatric: Yes: Oriented Labs: CBC, BMP 09/18/17 06:30 09/20/17 07:40 INR, PTT INR 0.97 (0.82-1.09) 09/10/17 13:25 Problem List - Problems (1) CKD (chronic kidney disease) Code(s): N18.9 - CHRONIC KIDNEY DISEASE, UNSPECIFIED (2) Gangrene associated with diabetes mellitus Code(s): E11.52 - TYPE 2 DIABETES W DIABETIC PERIPHERAL ANGIOPATHY W GANGRENE (3) Hypoglycemia associated with diabetes Code(s): E11.649 - TYPE 2 DIABETES MELLITUS WITH HYPOGLYCEMIA WITHOUT COMA (4) Tobacco dependence Code(s): F17.200 - NICOTINE DEPENDENCE, UNSPECIFIED, UNCOMPLICATED Assessment/Plan Current Medications Generic Name Dose Route Start Last Admin Trade Name Freq PRN Reason Stop Dose Admin Acetaminophen 650 mg 09/17/17 20:14 09/21/17 06:32 Tylenol - PO 650 mg Q4H PRN Administration MODERATE PAIN Amlodipine Besylate 10 mg 09/18/17 10:00 09/21/17 12:06 Norvasc - PO 10 mg DAILY [facility] Administration Aspirin 81 mg 09/18/17 10:00 09/21/17 12:06 Asa - PO 81 mg DAILY [facility] Administration Atorvastatin Calcium 40 mg 09/17/17 22:00 09/20/17 22:14 Lipitor - PO 40 mg HS [facility] Administration Clonidine 0.1 mg 09/17/17 22:00 09/21/17 12:06 Catapres - PO 0.1 mg BID [facility] Administration Clopidogrel Bisulfate 75 mg 09/18/17 10:00 09/21/17 12:06 Plavix - PO 75 mg DAILY [facility] Administration Diphenhydramine HCl 25 mg 09/17/17 20:14 Benadryl - PO Q8H PRN swelling Furosemide 20 mg 09/18/17 10:00 09/21/17 12:06 Lasix - PO 20 mg DAILY [facility] Administration Gabapentin 300 mg 09/17/17 22:00 09/21/17 13:37 Neurontin - PO 300 mg TID [facility] Administration Heparin Sodium (Porcine) 5,000 unit 09/17/17 22:00 09/21/17 12:07 Heparin - SQ 5,000 unit BID [facility] Administration Hydrochlorothiazide 12.5 mg 09/18/17 10:00 09/21/17 12:06 Hctz - PO 12.5 mg DAILY [facility] Administration IV Flush 4 ml 09/17/17 20:14 Triple Lumen Flush IVPUSH PRN PRN Protocol Insulin Aspart 1 vial 09/17/17 22:00 09/21/17 13:37 Novolog Vial Sliding Scale - SQ Not Given ACHS [facility] Protocol Insulin Detemir 20 units 09/19/17 07:00 09/21/17 06:31 Levemir Vial SQ Not Given AM [facility] Levofloxacin 500 mg 09/19/17 11:30 09/21/17 05:18 Levaquin - PO 500 mg DAILY@0600 [facility] Administration Metoprolol Tartrate 25 mg 09/17/17 22:00 09/21/17 12:06 Lopressor - PO 25 mg BID [facility] Administration Nicotine 14 mg 09/18/17 10:00 09/21/17 12:07 Nicoderm Patch - TD 14 mg DAILY [facility] Administration Pantoprazole Sodium 20 mg 09/18/17 10:00 09/21/17 12:06 Protonix - PO 20 mg DAILY [facility] Administration Paroxetine HCl 10 mg 09/18/17 10:00 04/02/18 12:07 Paxil - PO 10 mg DAILY [facility] Administration Quetiapine Fumarate 200 mg 09/17/17 22:00 09/21/17 12:06 Seroquel - PO 200 mg BID [facility] Administration Impression 1. CKD 2. PVD 3. altered mental status 4. DM 5. HTN 6. hypoglycemia 7. HLD 8. UTI Plan - cont with current meds - monitor renal function - will complete renal workup in office - can cont diuretics - pt is not compliant with diet Dr Kitchen
[2017-09-21] MEDS ORDERED: PT OWN MED DRAWER 7, Y5N ONE (21:01)
[2017-09-21] MEDS ORDERED: INSULIN (NOVOLOG) ASPART 100 UNITS/ML 10ML VIAL ONE (21:01)
[2017-09-21] MEDS: ATORVASTATIN CA 40 MG TABLET (FP) PO SCH (21:08)
[2017-09-22] MEDS: INSULIN DETEMIR 100 UNITS/ML MDV SQ SCH (06:16)
[2017-09-22] MEDS: INSULIN SLIDING SCALE (NOVOLOG) 1 VIAL SQ SCH ×2 (06:16→11:24)
[2017-09-22] MEDS: GABAPENTIN 300 MG CAPSULE (FP) PO SCH (06:16)
[2017-09-22] MEDS ORDERED: INSULIN DETEMIR 100 UNITS/ML MDV SQ ONE (07:00)
[2017-09-22] MEDS ORDERED: INSULIN (NOVOLOG) ASPART 100 UNITS/ML 10ML VIAL ONE (07:45)
--- NOTE | 2017-09-22 09:02 | DS ---
Physical Examination Vital Signs: Vital Signs Temperature 97.9 F 09/22/17 06:00 Pulse Rate 72 09/22/17 06:00 Respiratory Rate 16 09/22/17 06:00 Blood Pressure 122/59 09/22/17 06:00 O2 Sat by Pulse Oximetry (%) 97 09/21/17 21:00 Cardiovascular: Yes: S1, S2 Respiratory: Yes: Regular, CTA Bilaterally Extremities: Yes: Amputation Labs: CBC, BMP 09/18/17 06:30 09/20/17 07:40 Discharge Summary Reason For Visit: GANGRENE ASSOCIATED WITH DIABETES Current Active Problems PATRICIA (acute kidney injury) (Acute) Altered mental status (Acute) Anxiety (Acute) CKD (chronic kidney disease) (Acute) CVA (cerebrovascular accident) (Acute) Chest pain (Acute) Gangrene associated with diabetes mellitus (Acute) Hypoglycemia associated with diabetes (Acute) Leukocytosis (Acute) Poor compliance with medication (Acute) 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 Dillard), HTN, HLD, DM, PAD, anxiety disorder, who presents to the ED c/o L foot pain over the past week. As per pt, a week ago, she suddenly developed 10/10, sharp pain and a "pressure like sensation" in her LLE, specifically her L foot. Pt states that the pain was a/w edema and erythema, and is worsened with weight-bearing. For this reason, pt went to [facility], however was recommended L BKA by Dr. Sifuentes. She left [place], and came to [facility] for another opinion. Pt is requesting tx from Dr. Dillard, since he performed her R BKA - at this time, surgical intervention is not needed emergently. Pt states that ever since her recent trip to [place] two days ago, she has had diffuse chest pain a/w SOB, that came about when she discussed the BKA. She believes it is related to anxiety. During this time, pt also endorses diaphoresis and nausea with intermittent emesis. Denies DIAMOND, fever , chills, or changes in urinary or bowel function. Recent Travel: none PAST MEDICAL HISTORY: as above PAST SURGICAL HISTORY: s/p R BKA (2017; Dr. 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 Smoking: does not smoke currently. had smoked 1 ppd for 5 yrs previously Alcohol: quit twenty years ago; social drinker Drugs: denies - Problems (1) Gangrene associated with diabetes mellitus Assessment/Plan: -LLE -seen by Dr Dillard--Outpatient follow up -Pain management -Angio LLE -nephrology consult Code(s): E11.52 - TYPE 2 DIABETES W DIABETIC PERIPHERAL ANGIOPATHY W GANGRENE (2) Diabetes Assessment/Plan: -Uncontrolled -non compliant outpatient -RD consult -Endocrinology consult -Decrease Levemir to avoid afternoon dips -BGM -Diabetic diet Code(s): E11.9 - TYPE 2 DIABETES MELLITUS WITHOUT COMPLICATIONS Qualifiers: Diabetes mellitus type: type 2 (3) CVA (cerebrovascular accident) Assessment/Plan: -seen by Neurology -Repeat CT head no change left frontal infarct, no hemorrhage Code(s): I63.9 - CEREBRAL INFARCTION, UNSPECIFIED (4) PATRICIA (acute kidney injury) Assessment/Plan: -improved -Nephrology consult noted Code(s): N17.9 - ACUTE KIDNEY FAILURE, UNSPECIFIED (5) Leukocytosis Assessment/Plan: -nl today -repeat BC noted -on PO levaquin -ID on board Code(s): D72.829 - ELEVATED WHITE BLOOD CELL COUNT, UNSPECIFIED dc [facility] and follow up with dr dillard--pt understands and agrees with plan Condition: Stable - Instructions Diet, Activity, Other Instructions: -Follow up with Dr Dillard outpatient -Diabetic diet -Follow up with PCP within 2 weeks -Follow up with endocrinology, Jesu Manuel outpatient within next 4 weeks. -Take Levemir 20 units in AM, 7 units at bedtime SEE DR [facility]ARD [facility] September AT HIS OFFICE FOR SAMUEL/SURGERY FOLLOW UP Referrals: Katy Naidu MD [Primary Care Provider] - Jesu Farrell MD [Staff Physician] - Jose Dillard MD [Staff Physician] - - Home Medications Comprehensive Discharge Medication List: Ambulatory Orders Aspirin [ASA -] 81 mg PO DAILY 05/04/15 Acetaminophen [Tylenol .Regular Strength -] 650 mg PO Q6H PRN #0 tablet Gabapentin [Neurontin -] 300 mg PO TID 09/08/16 Hydrochlorothiazide [Hctz -] 12.5 mg PO DAILY cap 09/08/16 Amlodipine Besylate [Norvasc -] 10 mg PO DAILY 09/10/17 Clopidogrel Bisulfate [Plavix -] 75 mg PO DAILY 09/10/17 Diphenhydramine HCl [Benadryl Capsule -] 25 mg PO Q8H 09/10/17 Furosemide [Lasix -] 20 mg PO DAILY 09/10/17 Insulin (Novolog) [Novolog Flexpen -] 12 units SQ TID 09/10/17 Paroxetine HCl [Paxil -] 10 mg PO DAILY 09/10/17 Quetiapine Fumarate [Seroquel -] 200 mg PO BID 09/10/17 cloNIDine HCL [Catapres -] 0.1 mg PO BID 09/10/17 Insulin Detemir [Levemir Flextouch] 100 unit SQ ASDIR #1 insuln.pen 09/12/17 Metoprolol Tartrate [Lopressor -] 25 mg PO BID #60 tablet 09/12/17 Pen Needle, Diabetic [Bd Ultra-Fine Pen Needle] 1 each MC BID #100 dis.needle levoFLOXacin [Levaquin -] 500 mg PO DAILY #3 tablet 09/19/17 Atorvastatin Ca [Lipitor] 40 mg PO HS #30 tablet 09/21/17 levoFLOXacin [Levaquin -] 500 mg PO DAILY@0600 #7 tablet 09/21/17
[2017-09-22] MEDS ORDERED: PT OWN MED DRAWER 7, Y5N ONE ×2 (09:21→10:36)
[2017-09-22] MEDS: HEPARIN NA (PORCINE) 5,000 UNITS/ML 1ML VIAL SQ SCH (09:32)
[2017-09-22] MEDS: PANTOPRAZOLE 20 MG TABLET (FP) PO SCH (09:33)
[2017-09-22] MEDS: QUEtiapine FUMARATE 200 MG TABLET PO SCH (09:33)
[2017-09-22] MEDS: PARoxetine HCL 10 MG TABLET (FP) PO SCH (09:33)
[2017-09-22] MEDS: NICOTINE 14 MG/24 HOURS TOPICAL PATCH TD SCH (09:33)
[2017-09-22] MEDS: ASPIRIN 81 MG CHEWABLE TABLETS PO SCH (09:33)
[2017-09-22] MEDS: CLOPIDOGREL BISULFATE 75 MG TABLET (FP) PO SCH (09:33)
[2017-09-22] MEDS: METOPROLOL TARTRATE 25 MG TABLET (FP) PO SCH (09:33)
[2017-09-22] MEDS: FUROSEMIDE 20 MG TABLET (FP) PO SCH (09:33)
[2017-09-22] MEDS: HYDROCHLOROTHIAZIDE 12.5 MG CAPSULE (FP) PO SCH (09:33)
[2017-09-22] MEDS: cloNIDine HCL 0.1 MG TABLET PO SCH (11:24)
[2017-09-22] MEDS: amLODIPine BESYLATE 10 MG TABLET (FP) PO SCH (11:24)
[2017-09-22] MEDS: oxyCODONE HCL 5 MG TABLET PO PRN (12:08)
[2017-09-22 12:35] VITALS: BP 116/55; PULSE 67; TEMP 98.6
== END 2017-09-22 12:16 | DRG 197 ==
LOC: JER 10:46 → JERBED 19:18 → J4W 20:55 → OBSVTOIN 09-12 13:00 → J4S 09-14 20:35 → JICU 09-16 17:59 → J4S 09-17 20:10
PROVIDERS: ADMIT Internal Medicine; ATTEND Family Medicine
PROC: 05HP33Z Insertion of Infusion Device into Right External Jugular Vein, Percutaneous Approach (ICD-10-PCS; principal; 2017-09-15)
DX: E11.52 Type 2 diabetes mellitus with diabetic peripheral angiopathy with gangrene (principal); I63.9 Cerebral infarction, unspecified; I96 Gangrene, not elsewhere classified; I12.9 Hypertensive chronic kidney disease with stage 1 through stage 4 chronic kidney disease, or unspecified chronic kidney disease; E11.22 Type 2 diabetes mellitus with diabetic chronic kidney disease; N18.3 Chronic kidney disease, stage 3 (moderate); E78.5 Hyperlipidemia, unspecified; D63.8 Anemia in other chronic diseases classified elsewhere; R07.89 Other chest pain; F17.200 Nicotine dependence, unspecified, uncomplicated; E11.65 Type 2 diabetes mellitus with hyperglycemia; R41.82 Altered mental status, unspecified; R29.701 NIHSS score 1; D72.829 Elevated white blood cell count, unspecified; I95.9 Hypotension, unspecified; R09.02 Hypoxemia; R50.9 Fever, unspecified; N17.9 Acute kidney failure, unspecified; N39.0 Urinary tract infection, site not specified; F41.8 Other specified anxiety disorders; J45.909 Unspecified asthma, uncomplicated; I70.262 Atherosclerosis of native arteries of extremities with gangrene, left leg; E11.59 Type 2 diabetes mellitus with other circulatory complications; Z89.511 Acquired absence of right leg below knee; Z91.14 Patient's other noncompliance with medication regimen
CPT/HCPCS: 36415; 36600; 70450-TC; 70551-TC; 71045-TC-FY; 80048; 80053; 81003; 81015; 82140; 82465; 82550; 82570; 82803; 82947; 82962; 83036; 83605; 83718; 83721; 83735; 84100; 84156; 84478; 84484; 85025; 85027; 85610; 85651; 86038; 86850; 86900; 86901; 87040; 87086; 87186; 93005; 93010; 93306-TC; 93922; 93926-TC; 97116-GP; 97161-GP; 99284-25; G0378; J0735; J1644; J7030

== ENCOUNTER 2017-10-05 12:45 | Inpatient (IN) | payer OTHER ==
--- NOTE | 2017-10-05 13:25 | PDOC ---
History of Present Illness - General Chief Complaint: Wound Stated Complaint: WOUND Time Seen by Provider: 10/05/17 13:22 - History of Present Illness Initial Comments: 10/05/17 13:22 Ms. Harry 52 yo female w/ pmh of DM, HTN, HLD, PAD s/p Right BKA (Dr. Manzo 2016 ), anxiety, CVA, who presents with sister after evaluation earlier today by Dr. Manzo for vascular surgery scheduled . Per patient's sister patient has been acting much differently lately while in rehab at [facility] and she believes her sister has either been over-medicated or had another cerebral event. Sister reports she noted on Thursday that Ms. Harry was altered; more easily confused with drooling and slurring of words. She reports she has improved somewhat now however she continues to be easily confused with continued slurring. The patient denies chest pain, shortness of breath, headache and dizziness. Denies fever, chills, nausea, vomit, diarrhea and constipation. Denies dysuria, frequency, urgency and hematuria. Allergies: NKDA Past History - Past Medical History Allergies/Adverse Reactions: Allergies Allergy/AdvReac Type Severity Reaction Status Date / Time No Known Allergies Allergy Verified 10/05/17 12:47 Home Medications: Ambulatory Orders Aspirin [ASA -] 81 mg PO DAILY 05/04/15 Acetaminophen [Tylenol .Regular Strength -] 650 mg PO Q6H PRN #0 tablet Gabapentin [Neurontin -] 300 mg PO TID 09/08/16 Hydrochlorothiazide [Hctz -] 12.5 mg PO DAILY cap 09/08/16 Clopidogrel Bisulfate [Plavix -] 75 mg PO DAILY 09/10/17 Furosemide [Lasix -] 20 mg PO DAILY 09/10/17 Insulin (Novolog) [Novolog Flexpen -] 12 units SQ TID 09/10/17 Paroxetine HCl [Paxil -] 10 mg PO DAILY 09/10/17 Insulin Detemir [Levemir Flextouch] 100 unit SQ ASDIR #1 insuln.pen 09/12/17 Metoprolol Tartrate [Lopressor -] 25 mg PO BID #60 tablet 09/12/17 Pen Needle, Diabetic [Bd Ultra-Fine Pen Needle] 1 each MC BID #100 dis.needle Atorvastatin Ca [Lipitor] 40 mg PO HS #30 tablet 09/21/17 Oxycodone HCl [Oxycontin] 1 tab PO DAILY 10/05/17 Anemia: No Asthma: Yes Cancer: No Cardiac Disorders: No CVA: No COPD: No DVT: No Dementia: No Diabetes: Yes Dialysis: No GI Disorders: No Disorders: No HTN: Yes Hypercholesterolemia: Yes Kidney Stones: No Liver Disease: No Psychiatric Problems: No Seizures: No Thyroid Disease: No Lung CA: No - Surgical History Abdominal Surgery: No Appendectomy: No Cardiac Surgery: No Cholecystectomy: Yes (?) Gastric Stapling: No GI Surgery: No Lung Surgery: No Neurologic Surgery: No - Suicide/Smoking/Psychosocial Hx Smoking Status: Yes Smoking History: Former smoker Have you smoked in the past 12 months: No Number of Cigarettes Smoked Daily: 10 Information on smoking cessation initiated: No Hx Alcohol Use: No Drug/Substance Use Hx: No Substance Use Type: None Hx Substance Use Treatment: No Review of Systems - Review of Systems Comments:: 10/05/17 13:22 GENERAL/CONSTITUTIONAL: No fever or chills. No weakness. HEAD, EYES, EARS, NOSE AND THROAT: No change in vision. No ear pain or discharge. No sore throat. CARDIOVASCULAR: No chest pain or shortness of breath RESPIRATORY: No cough, wheezing, or hemoptysis. GASTROINTESTINAL: No nausea, vomiting, diarrhea or constipation. GENITOURINARY: No dysuria, frequency, or change in urination. MUSCULOSKELETAL: No joint or muscle swelling or pain. No neck or back pain. SKIN: No rash NEUROLOGIC: No headache, vertigo, loss of consciousness, or change in strength/ sensation. ENDOCRINE: No increased thirst. No abnormal weight change HEMATOLOGIC/LYMPHATIC: No anemia, easy bleeding, or history of blood clots. ALLERGIC/IMMUNOLOGIC: No hives or skin allergy. *Physical Exam - Vital Signs Last Vital Signs Temp Pulse Resp BP Pulse Ox 98.4 F 76 18 108/65 95 10/05/17 12:47 10/05/17 12:47 10/05/17 12:47 10/05/17 12:47 10/05/17 12:47 - Physical Exam Comments: 10/05/17 14:54 GENERAL: Awake, alert, and fully oriented, in no acute distress HEAD: No signs of trauma, normocephalic, atraumatic EYES: PERRLA, EOMI, sclera anicteric, conjunctiva clear ENT: Auricles normal inspection, hearing grossly normal, nares patent, oropharynx clear without exudates. Moist mucosa NECK: Normal ROM, supple, no lymphadenopathy, JVD, or masses LUNGS: No distress, speaks full sentences, clear to auscultation bilaterally HEART: Regular rate and rhythm, normal S1 and S2, no murmurs, rubs or gallops, peripheral pulses normal and equal bilaterally. ABDOMEN: Soft, nontender, normoactive bowel sounds. No guarding, no rebound. No masses EXTREMITIES: +Right BKA noted well healing. Left foot 1st and 3rd toe blackened. NEUROLOGICAL: Cranial nerves II through XII grossly intact. Normal speech, normal gait, no focal sensorimotor deficits SKIN: Warm, Dry, normal turgor, no rashes or lesions noted. ED Treatment Course - LABORATORY CBC & Chemistry Diagram: 10/05/17 14:30 10/05/17 14:30 Medical Decision Making - Medical Decision Making 10/05/17 14:58 Ms. Harry is a 52 yo female w/ pmh as described who presents for evaluation from Vascular clinic. Patient experiencing slurred speech for the past week which has improved but not fully resolved. Patient has also checked herself out from [place]. 10/05/17 15:47 Dr. Milan (admits for PCP Dr. Jo) paged for admission for lethargy and procedure on . 10/05/17 16:03 Patient admitted for further care. *DC/Admit/Observation/Transfer Diagnosis at time of Disposition: Lethargy, Foot pain, left - Discharge Dispostion Admit: Yes - Referrals Referrals: Herbert Jo [Primary Care Provider] - - Patient Instructions - Post Discharge Activity
[2017-10-05 14:32] LABS: VENOUS PC02 49.1 mmHg (38-52); VENOUS PH 7.31 (7.32-7.42); VENOUS PO2 22.9 mmHg (28-48)
[2017-10-05 14:48] LABS: BASO % 0.7 % (0-2.0); EOS % 3.4 % (0-4.5); HEMATOCRIT 33.9 % (32.4-45.2); HEMOGLOBIN 11.4 GM/dL (10.7-15.3); MCH 29.9 pg (25.7-33.7); MCHC 33.7 g/dl (32.0-36.0); MEAN CELL VOLUME 88.9 fl (80-96); MEAN PLT VOLUME 7.7 fl (7.5-11.1); MONO % 7.7 % (3.8-10.2); NEUT % 68.2 % (42.8-82.8); PLATELET COUNT 605 K/MM3 (134-434); RBC 3.81 M/mm3 (3.60-5.2); RDW 14.4 % (11.6-15.6); WHITE BLOOD COUNT 10.1 K/mm3 (4.0-10.0)
[2017-10-05 14:58] LABS: INR 1.04 (0.82-1.09); PROTHROMBIN TIME (PATIENT) 11.8 SEC (9.98-11.88)
[2017-10-05] MEDS ORDERED: morphine CARPU-JECT 2 MG/1 ML DISP.SYRIN IVPUSH ONE (15:03)
[2017-10-05 15:12] LABS: ALBUMIN 1.8 g/dl (3.4-5.0); ANION GAP 6 (8-16); BLOOD UREA NITROGEN 36 mg/dL (7-18); CALCIUM 8.3 mg/dL (8.5-10.1); CHLORIDE 108 mmol/L (98-107); CO2 25 mmol/L (21-32); CREATININE 1.7 mg/dL (0.55-1.02); GLUCOSE,RANDOM 135 mg/dL (74-106); POTASSIUM 5.5 mmol/L (3.5-5.1); SGOT/AST 56 U/L (15-37); SGPT/ALT 44 U/L (12-78); SODIUM 139 mmol/L (136-145)
--- NOTE | 2017-10-05 15:12 | PDOC ---
Attending Attestation - Resident Resident Name: Royal Stewart - ED Attending Attestation I have performed the following: I have examined & evaluated the patient, The case was reviewed & discussed with the resident, I agree w/resident's findings & plan, Exceptions are as noted - HPI HPI: 10/05/17 15:12 52 year old female with HTN, DM, HLD, PAD s/p right BKA, CVA p/w left foot pain. The patient has recently been admitted for chronic left foot wound several weeks ago. Was treated and discharged to [facility]. Since then, she was supposed to follow up with DR. Manzo for an angioplasty for her left lower extremity, but has not been able to follow up. The symptoms had persisted and worsened, and pt is supposed to undergo the procedure later this week. Denies fevers, chills. The sister did report that the patient may have been drowsier than usual. Thinks that she may have [facility] too [facility]. - Physicial Exam PE: 10/05/17 15:25 GENERAL: Awake, alert, and fully oriented, in no acute distress. HEAD: No signs of trauma EYES: PERRLA, EOMI, sclera anicteric, conjunctiva clear ENT: Auricles normal inspection, hearing grossly normal, nares patent. NECK: Normal ROM, supple. LUNGS: Breath sounds equal, clear to auscultation bilaterally. No wheezes, and no crackles HEART: Regular rate and rhythm, normal S1 and S2, no murmurs, rubs or gallops ABDOMEN: Soft, nontender, No guarding, no rebound. No masses EXTREMITIES: Right foot with ulceration of first toe. s/p left bka. NEUROLOGICAL: Cranial nerves II through XII grossly intact. Normal speech - Medical Decision Making 10/05/17 15:26 Vital Signs Temp Pulse Resp BP Pulse Ox 98.6 F 77 17 110/60 97 10/05/17 14:30 10/05/17 14:30 10/05/17 14:30 10/05/17 14:30 10/05/17 14:30 Pt with right foot wound. Scheduled for right lower extremity angioplasty by Dr. Jose Manzo. Blood work including cultures. Admission for further management and workup. Heart Score/ECG Review #1 ECG reviewed & interpreted by me at: 14:15 10/05/17 15:11 NSR 72, no std/leny, normal axis, normal intervals, QTC 392 msec
[2017-10-05 15:15] LABS: ALK PHOS 723 U/L (45-117)
[2017-10-05] MEDS ORDERED: morphine SULFATE 4 MG/ML VIAL ONE (15:20)
[2017-10-05 15:31] LABS: BILIRUBIN,TOTAL < 0.1 mg/dL (0.2-1.0)
--- NOTE | 2017-10-05 17:03 | EKG ---
Test Reason : Blood Pressure : / mmHG Vent. Rate : 072 BPM Atrial Rate : 072 BPM P-R Int : 128 ms QRS Dur : 080 ms QT Int : 358 ms P-R-T Axes : 053 003 036 degrees QTc Int : 392 ms NORMAL SINUS RHYTHM NORMAL ECG WHEN COMPARED WITH ECG OF 17-SEP-2017 09:59, NO SIGNIFICANT CHANGE WAS FOUND Confirmed by RM BOWLING MD ([id number]) on 10/05/2017 5:02:48 PM Referred By: Confirmed By:RM BOWLING MD
--- NOTE | 2017-10-05 18:27 | PN ---
Progress Note (short form) - Note Progress Note: Vascular Surgery Pt seen in wound care clinic today. Left foot gangrene with recent US showing popliteal artery stenosis. Pt will need angiogram, angioplasty. Please clear from a medical and cardiology standpoint. Jose Manzo DO
[2017-10-05] MEDS ORDERED: MORPHINE SULFATE 10 MG/1 ML *VIAL ONE (20:28)
[2017-10-05] MEDS: morphine SULFATE 4 MG/ML VIAL IVPUSH PRN (20:35)
[2017-10-05] MEDS: HEPARIN NA (PORCINE) 5,000 UNITS/ML 1ML VIAL SQ SCH (22:21)
[2017-10-05] MEDS: INSULIN (LEVEMIR) 100 UNITS/ML UNITS SQ SCH (22:21)
[2017-10-05] MEDS: GABAPENTIN 300 MG CAPSULE (FP) PO SCH (22:21)
[2017-10-05] MEDS: ATORVASTATIN CA 40 MG TABLET (FP) PO SCH (22:21)
[2017-10-05] MEDS: METOPROLOL TARTRATE 25 MG TABLET (FP) PO SCH (22:21)
[2017-10-05] MEDS: INSULIN SLIDING SCALE (NOVOLOG) 1 VIAL SQ SCH (22:22)
[2017-10-05] MEDS: ACETAMINOPHEN 325 MG TABLET (FP) PO PRN (22:29)
[2017-10-05] MEDS ORDERED: POLYETHYLENE GLYCOL 3350 119 GM BTL PO ONE (22:40)
[2017-10-05 23:00] VITALS: BMI 26.8
[2017-10-05] MEDS ORDERED: SODIUM POLYSTYRENE SULFONATE 15 GM/60 ML BOTTLE PO ONE (23:00)
[2017-10-06] MEDS: morphine SULFATE 4 MG/ML VIAL IVPUSH PRN ×5 (00:42→21:02)
[2017-10-06] MEDS: HEPARIN NA (PORCINE) 5,000 UNITS/ML 1ML VIAL SQ SCH ×3 (05:54→21:10)
[2017-10-06] MEDS: GABAPENTIN 300 MG CAPSULE (FP) PO SCH ×3 (05:54→21:10)
[2017-10-06] MEDS: INSULIN (LEVEMIR) 100 UNITS/ML UNITS SQ SCH ×2 (06:47→21:10)
[2017-10-06] MEDS: INSULIN SLIDING SCALE (NOVOLOG) 1 VIAL SQ SCH ×4 (06:47→21:11)
[2017-10-06 07:54] LABS: BASO % 0.6 % (0-2.0); EOS % 5.3 % (0-4.5); HEMATOCRIT 31.3 % (32.4-45.2); HEMOGLOBIN 10.5 GM/dL (10.7-15.3); LYMPH % 24.1 % (8-40); MCHC 33.6 g/dl (32.0-36.0); MEAN CELL VOLUME 89.3 fl (80-96); MEAN PLT VOLUME 7.4 fl (7.5-11.1); MONO % 10.7 % (3.8-10.2); NEUT % 59.3 % (42.8-82.8); PLATELET COUNT 553 K/MM3 (134-434); RBC 3.51 M/mm3 (3.60-5.2); RDW 14.3 % (11.6-15.6); WHITE BLOOD COUNT 8.3 K/mm3 (4.0-10.0)
[2017-10-06 08:04] LABS: INR 1.11 (0.82-1.09); PROTHROMBIN TIME (PATIENT) 12.5 SEC (9.98-11.88)
[2017-10-06 08:35] LABS: ALBUMIN 1.5 g/dl (3.4-5.0); ANION GAP 7 (8-16); BLOOD UREA NITROGEN 32 mg/dL (7-18); CALCIUM 8.3 mg/dL (8.5-10.1); CHLORIDE 111 mmol/L (98-107); CO2 26 mmol/L (21-32); GLUCOSE,RANDOM 115 mg/dL (74-106); MAGNESIUM 2.5 mg/dL (1.8-2.4); POTASSIUM 4.6 mmol/L (3.5-5.1); SODIUM 144 mmol/L (136-145)
[2017-10-06 08:45] LABS: ALK PHOS 558 U/L (45-117); CREATININE 1.5 mg/dL (0.55-1.02); PHOSPHOROUS 6.2 mg/dL (2.5-4.9); SGOT/AST 33 U/L (15-37); SGPT/ALT 30 U/L (12-78)
[2017-10-06 08:48] LABS: BILIRUBIN,TOTAL < 0.1 mg/dL (0.2-1.0)
[2017-10-06] MEDS: ACETAMINOPHEN 325 MG TABLET (FP) PO PRN ×3 (09:47→22:58)
[2017-10-06] MEDS: METOPROLOL TARTRATE 25 MG TABLET (FP) PO SCH ×2 (09:47→21:10)
[2017-10-06] MEDS: FUROSEMIDE 20 MG TABLET (FP) PO SCH (09:47)
--- NOTE | 2017-10-06 11:14 | HP ---
Admitting History and Physical - Primary Care Physician PCP: Lula Pimentel - Admission Chief Complaint: foot pain History of Present Illness: 52 year old female with HTN, DM, HLD, PAD s/p right BKA, CVA p/w left foot pain. The patient has recently been admitted for chronic left foot wound several weeks ago. Was treated and discharged to [facility] Since then, she was supposed to follow up with DR. Dillard for an angioplasty for her left lower extremity, but has not been able to follow up. The symptoms had persisted and worsened, and pt is supposed to undergo the procedure later this week. 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: CVA Cardiovascular: Yes: HTN, Other (PAD) Pulmonary: Yes: Asthma Gastrointestinal: Yes: Pancreatitis Hepatobiliary: Yes: Other (ALCOHOLISM STOPPED ONE YEAR AGO) Renal/: Yes: Renal Inusuff, Other (PYLEONEPHRITIS RECENTLY AT [facility] [place] ...: No (hysterectomy) Endocrine: Yes: Diabetes Mellitus - Past Surgical History Past Surgical History: Yes: Cholecystectomy - Smoking History Smoking history: Former smoker Have you smoked in the past 12 months: No Aproximately how many cigarettes per day: 10 - Alcohol/Substance Use Hx Alcohol Use: No Home Medications - Allergies Allergies/Adverse Reactions: Allergies Allergy/AdvReac Type Severity Reaction Status Date / Time No Known Allergies Allergy Verified 10/05/17 12:47 - Home Medications Home Medications: Ambulatory Orders Aspirin [ASA -] 81 mg PO DAILY 05/04/15 Acetaminophen [Tylenol .Regular Strength -] 650 mg PO Q6H PRN #0 tablet Gabapentin [Neurontin -] 300 mg PO TID 09/08/16 Hydrochlorothiazide [Hctz -] 12.5 mg PO DAILY cap 09/08/16 Clopidogrel Bisulfate [Plavix -] 75 mg PO DAILY 09/10/17 Furosemide [Lasix -] 20 mg PO DAILY 09/10/17 Insulin (Novolog) [Novolog Flexpen -] 12 units SQ TID 09/10/17 Paroxetine HCl [Paxil -] 10 mg PO DAILY 09/10/17 Insulin Detemir [Levemir Flextouch] 100 unit SQ ASDIR #1 insuln.pen 09/12/17 Metoprolol Tartrate [Lopressor -] 25 mg PO BID #60 tablet 09/12/17 Pen Needle, Diabetic [Bd Ultra-Fine Pen Needle] 1 each MC BID #100 dis.needle Atorvastatin Ca [Lipitor] 40 mg PO HS #30 tablet 09/21/17 Oxycodone HCl [Oxycontin] 1 tab PO DAILY 10/05/17 Review of Systems - Review of Systems Musculoskeletal: reports: Other (left foot pain) Physical Examination Vital Signs: Vital Signs Temperature 98.5 F 10/06/17 05:52 Pulse Rate 80 10/06/17 05:52 Respiratory Rate 19 10/06/17 05:52 Blood Pressure 120/60 10/06/17 05:52 O2 Sat by Pulse Oximetry (%) 96 10/05/17 23:11 Constitutional: Yes: Calm Neck: Yes: Trachea Midline Cardiovascular: Yes: Regular Rate and Rhythm, S1, S2 Respiratory: Yes: CTA Bilaterally Gastrointestinal: Yes: Normal Bowel Sounds, Soft Extremities: Yes: Other (right BKA left foot 2nd and 3rd toes gangrenous painful to touch blackish discoloration of great toe, tenderness of dorsum of the foot) Labs: CBC, BMP 10/06/17 06:35 10/06/17 06:35 Problem List - Problems (1) Foot pain, left Assessment/Plan: PVD- seen by Dr dillard to got angioplasty needs cardiac clearance Code(s): M79.672 - PAIN IN LEFT FOOT (2) CKD (chronic kidney disease) Assessment/Plan: baseline creatinine renal eval Code(s): N18.9 - CHRONIC KIDNEY DISEASE, UNSPECIFIED (3) Diabetes Assessment/Plan: levemir bid sliding scale [id number] endocrine Code(s): E11.9 - TYPE 2 DIABETES MELLITUS WITHOUT COMPLICATIONS Qualifiers: Diabetes mellitus type: type 2 (4) HTN (hypertension) Assessment/Plan: cardiology for clearance on metoprolol on statin Code(s): I10 - ESSENTIAL (PRIMARY) HYPERTENSION (5) Anemia Assessment/Plan: iron panel Code(s): D64.9 - ANEMIA, UNSPECIFIED Assessment/Plan chronically elevated alkphosphatase check ggtp, lft normal possible bony source
--- NOTE | 2017-10-06 11:31 | SPA.PREOP ---
- PRE-OP NOTE Dx: Left foot gangrene; popliteal artery stenosis. Planned Procedure: LLE angiogram possible angioplasty Surgeon: Jose Manzo Consent: To be obtained after surgeon explained all risks, benefits and alternatives to patient and or HCP. Last Vital Signs Temp Pulse Resp BP Pulse Ox 98.5 F 80 19 120/60 96 10/06/17 05:52 10/06/17 05:52 10/06/17 05:52 10/06/17 05:52 10/05/17 23:11 Lab Results WBC 8.3 K/mm3 (4.0-10.0) 10/06/17 06:35 RBC 3.51 M/mm3 (3.60-5.2) L 10/06/17 06:35 Hgb 10.5 GM/dL (10.7-15.3) L 10/06/17 06:35 Hct 31.3 % (32.4-45.2) L 10/06/17 06:35 MCV 89.3 fl (80-96) 10/06/17 06:35 MCHC 33.6 g/dl (32.0-36.0) 10/06/17 06:35 RDW 14.3 % (11.6-15.6) 10/06/17 06:35 Plt Count 553 K/MM3 (134-434) H 10/06/17 06:35 Sodium 144 mmol/L (136-145) 10/06/17 06:35 Potassium 4.6 mmol/L (3.5-5.1) 10/06/17 06:35 Chloride 111 mmol/L (98-107) H 10/06/17 06:35 Carbon Dioxide 26 mmol/L (21-32) 10/06/17 06:35 Anion Gap 7 (8-16) L 10/06/17 06:35 BUN 32 mg/dL (7-18) H 10/06/17 06:35 Creatinine 1.5 mg/dL (0.55-1.02) H 10/06/17 06:35 Random Glucose 115 mg/dL (74-106) H 10/06/17 06:35 Calcium 8.3 mg/dL (8.5-10.1) L 10/06/17 06:35 INR 1.11 (0.82-1.09) 10/06/17 06:35 - ASSESSMENT/PLAN Problem List - Problems (1) Gangrene associated with diabetes mellitus Assessment/Plan: 1. Plan on taking to OR 10/08/17 2. Make NPO after midnight except po meds 3. GI/DVT PPX 4. Medical optimization / clearance Code(s): E11.52 - TYPE 2 DIABETES W DIABETIC PERIPHERAL ANGIOPATHY W GANGRENE Visit type - Case Type Case Type: ED Admission
[2017-10-06] MEDS: PARoxetine HCL 10 MG TABLET (FP) PO SCH (11:59)
--- NOTE | 2017-10-06 14:27 | CON.CARD ---
Consult Consult Specialty:: Cardiology Referred by:: beau marcelino Reason for Consultation:: preop - History of Present Illness Chief Complaint: foot pain History of Present Illness: 52 year old female with a pmhx of htn, dm, hld, PAD sp right BKA, and CVA admitted for chronic left foot wound for angioplasty. Patient has some chronic atypical chest pain for long standing time that is near right shoulder at rest and reproducible. No sob but limited in activity due to her PAD. No palpitations. No pnd, orthopnea, or edema. EKG: sinus rhytm at 72bpm, nl axis, nl st segments. Echocardiogram low normal LV systolic function with lateral wall hypokinesis. 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: CVA Cardio/Vascular: Yes: HTN, Other (PAD) Pulmonary: Yes: Asthma Gastrointestinal: Yes: Pancreatitis Hepatobiliary: Yes: Other (ALCOHOLISM STOPPED ONE YEAR AGO) Renal/: Yes: Renal Inusuff, Other (PYLEONEPHRITIS RECENTLY AT [facility]) ...: No (hysterectomy) Endocrine: Yes: Diabetes Mellitus - Past Surgical History Past Surgical History: Yes: Cholecystectomy - Alcohol/Substance Use Hx Alcohol Use: No - Smoking History Smoking history: Former smoker Have you smoked in the past 12 months: No Aproximately how many cigarettes per day: 10 Home Medications - Allergies Allergies/Adverse Reactions: Allergies Allergy/AdvReac Type Severity Reaction Status Date / Time No Known Allergies Allergy Verified 10/05/17 12:47 - Home Medications Home Medications: Ambulatory Orders Aspirin [ASA -] 81 mg PO DAILY 05/04/15 Acetaminophen [Tylenol .Regular Strength -] 650 mg PO Q6H PRN #0 tablet Gabapentin [Neurontin -] 300 mg PO TID 09/08/16 Hydrochlorothiazide [Hctz -] 12.5 mg PO DAILY cap 09/08/16 Clopidogrel Bisulfate [Plavix -] 75 mg PO DAILY 09/10/17 Furosemide [Lasix -] 20 mg PO DAILY 09/10/17 Insulin (Novolog) [Novolog Flexpen -] 12 units SQ TID 09/10/17 Paroxetine HCl [Paxil -] 10 mg PO DAILY 09/10/17 Insulin Detemir [Levemir Flextouch] 100 unit SQ ASDIR #1 insuln.pen 09/12/17 Metoprolol Tartrate [Lopressor -] 25 mg PO BID #60 tablet 09/12/17 Pen Needle, Diabetic [Bd Ultra-Fine Pen Needle] 1 each MC BID #100 dis.needle Atorvastatin Ca [Lipitor] 40 mg PO HS #30 tablet 09/21/17 Oxycodone HCl [Oxycontin] 1 tab PO DAILY 10/05/17 Vital Signs: Vital Signs Temperature 99.4 F 10/06/17 13:54 Pulse Rate 82 10/06/17 13:54 Respiratory Rate 19 10/06/17 05:52 Blood Pressure 136/75 10/06/17 13:54 O2 Sat by Pulse Oximetry (%) 97 10/06/17 09:00 Constitutional: Yes: No Distress Neck: Yes: WNL Respiratory: Yes: CTA Bilaterally Gastrointestinal: Yes: Normal Bowel Sounds, Soft Cardiovascular: Yes: Regular Rate and Rhythm JVD: No Carotid Bruit: No PMI: Non-Displaced Heart Sounds: Yes: S1, S2 Murmur: No: Systolic Murmur Edema: No (R BKA) - Other Data Labs, Other Data: CBC, BMP 10/06/17 06:35 10/06/17 06:35 INR, PTT INR 1.11 (0.82-1.09) 10/06/17 06:35 Troponin, BNP 10/05/17 10/05/17 10/05/17 14:30 14:30 20:00 Troponin I < 0.02 Cancelled < 0.02 Troponin, BNP 10/05/17 10/05/17 10/05/17 14:30 14:30 20:00 Troponin I < 0.02 Cancelled < 0.02 Imaging - Results Chest X-ray: Report Reviewed EKG: Image Reviewed Assessment/Plan 52 year old female with a pmhx of htn, dm, hld, PAD sp right BKA, and CVA admitted for chronic left foot wound for angioplasty. Patient has some chronic atypical chest pain for long standing time that is near right shoulder at rest and reproducible. No sob but limited in activity due to her PAD. No palpitations. No pnd, orthopnea, or edema. EKG: sinus rhytm at 72bpm, nl axis, nl st segments. Echocardiogram low normal LV systolic function with lateral wall hypokinesis. -Patient planned for peripheral angioplasty. No acute chest pain at this time. Normal EKG. Chronic chest pain is very atypical. Echo with low-normal LV systolic function and no significant valve disease. No chf on exam. On aspirin /plavix. Should be on statin if no contraindication. No further cardiac testing prior to angioplasty procedure. Would assume patient has CAD given her history and wall motion abnormality on echo. If needs a more invasive surgery than please contact cardiology prior to this.
--- NOTE | 2017-10-06 16:23 | CONSULT ---
Consult Consult Specialty:: Nephrology Reason for Consultation:: ckd - History of Present Illness Chief Complaint: change in mental status History of Present Illness: Pt is a 52 year old female with pmhx of DM, HTN, PAD, HTN, right BKA and CKD who presents to the ER with altered mental status. She is being worked up for a CVA seen on CT scan. I was called to evaluate her for CKD and hyperkalemia. She is awake and appears comfortable. She denies shortness of breath. She denies fevers or chills. 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 Cardio/Vascular: Yes: HTN, Other (PAD) Pulmonary: Yes: Asthma Gastrointestinal: Yes: Pancreatitis Hepatobiliary: Yes: Other (ALCOHOLISM STOPPED ONE YEAR AGO) Renal/: Yes: Renal Inusuff, Other (PYLEONEPHRITIS RECENTLY AT [facility]) ...: No (hysterectomy) Endocrine: Yes: Diabetes Mellitus - Past Surgical History Past Surgical History: Yes: Cholecystectomy - Alcohol/Substance Use Hx Alcohol Use: No - Smoking History Smoking history: Former smoker Have you smoked in the past 12 months: No Aproximately how many cigarettes per day: 10 Home Medications - Allergies Allergies/Adverse Reactions: Allergies Allergy/AdvReac Type Severity Reaction Status Date / Time No Known Allergies Allergy Verified 10/05/17 12:47 - Home Medications Home Medications: Ambulatory Orders Aspirin [ASA -] 81 mg PO DAILY 05/04/15 Acetaminophen [Tylenol .Regular Strength -] 650 mg PO Q6H PRN #0 tablet Gabapentin [Neurontin -] 300 mg PO TID 09/08/16 Hydrochlorothiazide [Hctz -] 12.5 mg PO DAILY cap 09/08/16 Clopidogrel Bisulfate [Plavix -] 75 mg PO DAILY 09/10/17 Furosemide [Lasix -] 20 mg PO DAILY 09/10/17 Insulin (Novolog) [Novolog Flexpen -] 12 units SQ TID 09/10/17 Paroxetine HCl [Paxil -] 10 mg PO DAILY 09/10/17 Insulin Detemir [Levemir Flextouch] 100 unit SQ ASDIR #1 insuln.pen 09/12/17 Metoprolol Tartrate [Lopressor -] 25 mg PO BID #60 tablet 09/12/17 Pen Needle, Diabetic [Bd Ultra-Fine Pen Needle] 1 each MC BID #100 dis.needle Atorvastatin Ca [Lipitor] 40 mg PO HS #30 tablet 09/21/17 Oxycodone HCl [Oxycontin] 1 tab PO DAILY 10/05/17 Family Disease History - Family Disease History Family History: Denies Review of Systems - Review of Systems Constitutional: reports: No Symptoms Eyes: reports: No Symptoms HENT: reports: No Symptoms Neck: reports: No Symptoms Cardiovascular: reports: No Symptoms Respiratory: reports: No Symptoms Gastrointestinal: reports: No Symptoms Genitourinary: reports: No Symptoms Integumentary: reports: No Symptoms Neurological: reports: Confusion Endocrine: reports: No Symptoms Hematology/Lymphatic: reports: No Symptoms Physical Exam Vital Signs: Vital Signs Temperature 99.4 F 10/06/17 13:54 Pulse Rate 82 10/06/17 13:54 Respiratory Rate 19 10/06/17 05:52 Blood Pressure 136/75 10/06/17 13:54 O2 Sat by Pulse Oximetry (%) 97 10/06/17 09:00 Constitutional: Yes: Calm Eyes: Yes: Conjunctiva Clear HENT: Yes: Atraumatic Neck: Yes: Supple Cardiovascular: Yes: S1, S2 Respiratory: Yes: CTA Bilaterally Gastrointestinal: Yes: Soft Renal/: Yes: WNL Musculoskeletal: Yes: Other (right bka) Edema: No Neurological: Yes: Oriented Psychiatric: Yes: Oriented Labs: CBC, BMP 10/06/17 06:35 10/06/17 06:35 Laboratory Tests 10/05/17 10/06/17 10/06/17 14:30 06:35 06:35 WBC 8.3 Hgb 10.5 L Sodium 139 144 Potassium 5.5 H 4.6 BUN 36 H 32 H Creatinine 1.7 H 1.5 H Imaging - Results Chest X-ray: Report Reviewed Cat Scan: Report Reviewed Problem List - Problems (1) HTN (hypertension) Code(s): I10 - ESSENTIAL (PRIMARY) HYPERTENSION (2) CKD (chronic kidney disease) Code(s): N18.9 - CHRONIC KIDNEY DISEASE, UNSPECIFIED Assessment/Plan Current Medications Generic Name Dose Route Start Last Admin Trade Name Freq PRN Reason Stop Dose Admin Acetaminophen 650 mg 10/05/17 17:30 10/06/17 09:47 Tylenol - PO 650 mg Q6H PRN Administration FEVER Atorvastatin Calcium 40 mg 10/05/17 22:00 10/05/17 22:21 Lipitor - PO 40 mg HS BOLIVAR Administration Furosemide 20 mg 10/06/17 10:00 10/06/17 09:47 Lasix - PO 20 mg DAILY BOLIVAR Administration Gabapentin 300 mg 10/05/17 22:00 10/06/17 13:10 Neurontin - PO 300 mg TID BOLIVAR Administration Heparin Sodium (Porcine) 5,000 unit 10/05/17 22:00 10/06/17 13:11 Heparin - SQ Not Given TID BOLIVAR Insulin Aspart 1 vial 10/05/17 22:00 10/06/17 11:32 Novolog Vial Sliding Scale - SQ Not Given ACHS [facility] Protocol Insulin Detemir 15 units 10/05/17 22:00 10/06/17 06:47 Levemir Vial SQ 15 units BID@0700,2200 BOLIVAR Administration Metoprolol Tartrate 25 mg 10/05/17 22:00 10/06/17 09:47 Lopressor - PO 25 mg BID BOLIVAR Administration Morphine Sulfate 1 mg 10/05/17 17:31 10/06/17 13:10 Morphine Sulfate IVPUSH 1 mg Q4H PRN Administration PAIN LEVEL 6-10 Paroxetine HCl 10 mg 10/06/17 10:00 10/06/17 11:59 Paxil - PO 10 mg DAILY BOLIVAR Administration Impression 1. CKD 2. PVD 3. altered mental status 4. DM 5. HTN 6. hyperkalemia 7. HLD Plan - potassium is improved - cont lasix - called and discussed with medical attending - neurology eval for ct findings - repeat labs in am - will monitor potassium level
--- NOTE | 2017-10-06 16:49 | EKG ---
Test Reason : Blood Pressure : / mmHG Vent. Rate : 087 BPM Atrial Rate : 087 BPM P-R Int : 118 ms QRS Dur : 088 ms QT Int : 346 ms P-R-T Axes : 050 009 033 degrees QTc Int : 416 ms NORMAL SINUS RHYTHM NORMAL ECG WHEN COMPARED WITH ECG OF 05-OCT-2017 14:15, NO SIGNIFICANT CHANGE WAS FOUND PATIENT MOVING DURING EKG, HAS PAIN Confirmed by MD Loraine, Jose ([id number]) on 10/06/2017 4:48:34 PM Referred By: Carlos Alberto BOTELLO Confirmed By:Jose Baron MD
--- NOTE | 2017-10-06 19:24 | CONSULT ---
Consult - text type - Consultation Consultation Note: NEUROLOGY CONSULTATION is greatly appreciated: Events reviewed, patient examined with her sister at the bedside who provides additional history. 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 Now under evaluation for Rx of gangrenous toes on the left. On gabapentin, HCTZ, plavix, lasix, insulin, paxil, metoprolol, atorvastatin and oxycodone for pain in the left foot. According to her sister, patient has had confusion and short-term memory loss for "some time." Admitted here in August after transient episode of confused and slurred speech. She had CT and MRI (09/15/17) which showed atrophy and diffuse periventricular white matter microvascular changes. Now admitted for similar features of slurred and confused speech but "worse than the last time" as she could not be understood. In ER CT of head (reviewed): Atrophy. No acute changes. WBC=10.1 K. Platelets= 605K EXAM: No head trauma. No bruits. Cor reg. Left foot bandaged. S/P right BKA. NEURO: O x 3. Recall 1 of 3 @ 3. Confused re: timing of her history. Speech inappropriate but fluent. CN II-XII: full varela and EOM's. No facial. gag ok Motor: No drift. Normal strength. Normal arm strength and reflexes. Normal strength in legs but areflexic. Toes downgoing. Coord: No FTN dystaxia Sensory: Decreased vibration left foot. Normal at the ankle. IMP: Mild B/L cerebral dysfunction Mild diabetic peripheral neuropathy. The two transient episodes could represent increased confusion from toxic -metabolic encephalopathy BUT, could also represent transient aphasia due to left cerebral T.I. A.'s. SUGGEST: Carotid duplex dopplers pre-operatively Must r/o UTI pre-op. Check B12, TSH, RPR, ammonia level. Consider hematology consultation to evaluate thrombocytosis. Thank you very much, Maurizio Zeng MD
[2017-10-06] MEDS ORDERED: INSULIN (NOVOLOG) ASPART 100 UNITS/ML 10ML VIAL ONE (20:59)
[2017-10-06] MEDS: ATORVASTATIN CA 40 MG TABLET (FP) PO SCH (21:10)
[2017-10-06 22:54] LABS: URINE APPEARANCE CLOUDY; URINE BILIRUBIN NEGATIVE (<2.0 mg/dL); URINE COLOR YELLOW; URINE GLUCOSE (UA) 2+ (NEGATIVE); URINE KETONE NEGATIVE (NEGATIVE); URINE LEUK ESTERASE NEGATIVE (NEGATIVE); URINE NITRITE NEGATIVE (NEGATIVE); URINE UROBILINOGEN NEGATIVE mg/dL (0.2-1.0)
[2017-10-06 22:55] LABS: URINE PROTEIN 3+ (NEGATIVE)
[2017-10-06 23:10] LABS: EPI CELLS MODERATE /HPF (FEW); URINE BACTERIA FEW /hpf (NONE SEEN); URINE HYALINE CAST 1 /lpf; URINE MUCUS RARE
--- NOTE | 2017-10-07 00:42 | CONSULT ---
Consult Consult Specialty:: endocrine Referred by:: dr.saba poe Reason for Consultation:: diabetes mellitus uncontrolled - History of Present Illness Chief Complaint: left foot infection/ high sugars History of Present Illness: 52 year old female with HTN, DM, HLD, PAD s/p right BKA, CVA p/w left foot pain. she was recently been admitted for chronic left foot wound several weeks ago.advised to follow up for vascular surgical evaluation pad and left wound infection. Since then, she was supposed to follow up with DR. Manzo for an angioplasty for her left lower extremity, but has not been able to follow up. 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 Cardio/Vascular: Yes: HTN, Other (PAD) Pulmonary: Yes: Asthma Gastrointestinal: Yes: Pancreatitis Hepatobiliary: Yes: Other (ALCOHOLISM STOPPED ONE YEAR AGO) Renal/: Yes: Renal Inusuff, Other (PYLEONEPHRITIS RECENTLY AT [facility]) ...: No (hysterectomy) Endocrine: Yes: Diabetes Mellitus - Past Surgical History Past Surgical History: Yes: Cholecystectomy - Alcohol/Substance Use Hx Alcohol Use: No - Smoking History Smoking history: Former smoker Have you smoked in the past 12 months: No Aproximately how many cigarettes per day: 10 Home Medications - Allergies Allergies/Adverse Reactions: Allergies Allergy/AdvReac Type Severity Reaction Status Date / Time No Known Allergies Allergy Verified 10/05/17 12:47 - Home Medications Home Medications: Ambulatory Orders Aspirin [ASA -] 81 mg PO DAILY 05/04/15 Acetaminophen [Tylenol .Regular Strength -] 650 mg PO Q6H PRN #0 tablet Gabapentin [Neurontin -] 300 mg PO TID 09/08/16 Hydrochlorothiazide [Hctz -] 12.5 mg PO DAILY cap 09/08/16 Clopidogrel Bisulfate [Plavix -] 75 mg PO DAILY 09/10/17 Furosemide [Lasix -] 20 mg PO DAILY 09/10/17 Insulin (Novolog) [Novolog Flexpen -] 12 units SQ TID 09/10/17 Paroxetine HCl [Paxil -] 10 mg PO DAILY 09/10/17 Insulin Detemir [Levemir Flextouch] 100 unit SQ ASDIR #1 insuln.pen 09/12/17 Metoprolol Tartrate [Lopressor -] 25 mg PO BID #60 tablet 09/12/17 Pen Needle, Diabetic [Bd Ultra-Fine Pen Needle] 1 each MC BID #100 dis.needle Atorvastatin Ca [Lipitor] 40 mg PO HS #30 tablet 09/21/17 Oxycodone HCl [Oxycontin] 1 tab PO DAILY 10/05/17 Review of Systems - Review of Systems Constitutional: reports: Weakness Eyes: reports: Blurred Vision HENT: reports: No Symptoms Neck: reports: No Symptoms Cardiovascular: reports: No Symptoms Respiratory: reports: No Symptoms Gastrointestinal: reports: Bloating, Constipation Genitourinary: reports: No Symptoms Musculoskeletal: reports: Extremity Pain, Muscle Pain, Muscle Cramps, Muscle Weakness Integumentary: reports: Wound Neurological: reports: Unsteady Gait, Weakness Physical Exam Vital Signs: Vital Signs Temperature 99.2 F 10/06/17 22:00 Pulse Rate 86 10/06/17 22:00 Respiratory Rate 20 10/06/17 22:00 Blood Pressure 137/62 10/06/17 22:00 O2 Sat by Pulse Oximetry (%) 96 10/06/17 21:00 Constitutional: Yes: Anxious Eyes: Yes: EOM Intact HENT: Yes: Normocephalic Neck: Yes: Trachea Midline Cardiovascular: Yes: Regular Rate and Rhythm Respiratory: Yes: CTA Bilaterally Gastrointestinal: Yes: Normal Bowel Sounds ...Rectal Exam: Yes: Deferred Renal/: Yes: WNL Musculoskeletal: Yes: Joint Swelling, Muscle Weakness Extremities: Yes: Cool Edema: No Peripheral Pulses WNL: No Integumentary: Yes: Onychomycosis, Venous Stasis Changes Wound/Incision: Yes: Open to air Neurological: Yes: Alert, Oriented Labs: CBC, BMP 10/06/17 06:35 10/06/17 06:35 Problem List - Problems (1) 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 Code(s): E10.610 - TYPE 1 DIABETES MELLITUS W DIABETIC NEUROPATHIC ARTHROPATHY (2) Type 1 diabetes mellitus with other skin complications Code(s): E10.628 - TYPE 1 DIABETES MELLITUS WITH OTHER SKIN COMPLICATIONS (3) Foot pain, left Code(s): M79.672 - PAIN IN LEFT FOOT (4) HTN (hypertension) Code(s): I10 - ESSENTIAL (PRIMARY) HYPERTENSION (5) PATRICIA (acute kidney injury) Code(s): N17.9 - ACUTE KIDNEY FAILURE, UNSPECIFIED (6) 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 Code(s): E10.610 - TYPE 1 DIABETES MELLITUS W DIABETIC NEUROPATHIC ARTHROPATHY Assessment/Plan Current Active Problems Foot pain, left (Acute) HTN (hypertension) (Acute) Lethargy (Acute) diabetes mellitus pad diabetic neuropathy diabetic nephropathy Abnormal Lab Results 10/05/17 10/06/17 10/06/17 14:15 06:35 06:35 RBC 3.51 L Hgb 10.5 L Hct 31.3 L Plt Count 553 H MPV 7.4 L Monocytes % 10.7 H Eosinophils % 5.3 H PT with INR 12.50 H VBG pH 7.31 L POC VBG pO2 22.9 L Chloride Anion Gap BUN Creatinine Random Glucose Calcium Phosphorus Magnesium Total Bilirubin Alkaline Phosphatase Total Protein Albumin Urine Protein Urine Glucose (UA) 10/06/17 10/06/17 06:35 22:45 RBC Hgb Hct Plt Count MPV Monocytes % Eosinophils % PT with INR VBG pH POC VBG pO2 Chloride 111 H Anion Gap 7 L BUN 32 H Creatinine 1.5 H Random Glucose 115 H Calcium 8.3 L Phosphorus 6.2 H Magnesium 2.5 H Total Bilirubin < 0.1 L Alkaline Phosphatase 558 H Total Protein 5.0 L Albumin 1.5 L Urine Protein 3+ H Urine Glucose (UA) 2+ H Laboratory Tests 10/06/17 10/06/17 10/06/17 05:50 06:35 11:31 Sodium 144 Potassium 4.6 Chloride 111 H Carbon Dioxide 26 Anion Gap 7 L BUN 32 H Creatinine 1.5 H POC Glucometer 152 132 Random Glucose 115 H Calcium 8.3 L Phosphorus 6.2 H Magnesium 2.5 H Urine pH Ur Specific [place] Urine Protein Urine Glucose (UA) Urine Ketones Urine Blood Urine Nitrite Urine Bilirubin Urine Urobilinogen Ur Leukocyte Esterase 10/06/17 10/06/17 10/06/17 17:15 21:07 22:45 Sodium Potassium Chloride Carbon Dioxide Anion Gap BUN Creatinine POC Glucometer 142 305 Random Glucose Calcium Phosphorus Magnesium Urine pH 6.0 Ur Specific [place] 1.017 Urine Protein 3+ H Urine Glucose (UA) 2+ H Urine Ketones Negative Urine Blood Negative Urine Nitrite Negative Urine Bilirubin Negative Urine Urobilinogen Negative Ur Leukocyte Esterase Negative plan: levemir 20 units am levemir 15 units pm bgm achs novolog insulindoses Laboratory Tests 09/11/17 06:15 Hemoglobin A1c % 8.0 H
[2017-10-07] MEDS: morphine SULFATE 4 MG/ML VIAL IVPUSH PRN ×6 (00:52→21:29)
[2017-10-07] MEDS ORDERED: ACETAMINOPHEN 325 MG TABLET (FP) PO ONE (03:14)
[2017-10-07] MEDS: GABAPENTIN 300 MG CAPSULE (FP) PO SCH ×3 (06:16→21:33)
[2017-10-07] MEDS: HEPARIN NA (PORCINE) 5,000 UNITS/ML 1ML VIAL SQ SCH ×3 (06:16→21:33)
[2017-10-07] MEDS: INSULIN SLIDING SCALE (NOVOLOG) 1 VIAL SQ SCH ×4 (06:17→21:37)
[2017-10-07] MEDS: INSULIN (LEVEMIR) 100 UNITS/ML UNITS SQ SCH ×2 (07:16→08:01)
[2017-10-07] MEDS: ACETAMINOPHEN 325 MG TABLET (FP) PO PRN (08:03)
[2017-10-07 09:05] LABS: BASO % 1.2 % (0-2.0); EOS % 3.1 % (0-4.5); HEMATOCRIT 32.9 % (32.4-45.2); HEMOGLOBIN 10.8 GM/dL (10.7-15.3); LYMPH % 19.8 % (8-40); MCHC 32.7 g/dl (32.0-36.0); MEAN CELL VOLUME 88.7 fl (80-96); MEAN PLT VOLUME 7.9 fl (7.5-11.1); MONO % 6.9 % (3.8-10.2); PLATELET COUNT 602 K/MM3 (134-434); RBC 3.71 M/mm3 (3.60-5.2); RDW 14.2 % (11.6-15.6); WHITE BLOOD COUNT 11.1 K/mm3 (4.0-10.0)
[2017-10-07 09:31] LABS: CHLORIDE 110 mmol/L (98-107); POTASSIUM 4.8 mmol/L (3.5-5.1); SODIUM 143 mmol/L (136-145)
[2017-10-07] MEDS: METOPROLOL TARTRATE 25 MG TABLET (FP) PO SCH ×2 (09:31→21:33)
[2017-10-07] MEDS: FUROSEMIDE 20 MG TABLET (FP) PO SCH (09:31)
[2017-10-07 09:47] LABS: ALBUMIN 1.5 g/dl (3.4-5.0); ALK PHOS 663 U/L (45-117); ANION GAP 8 (8-16); BLOOD UREA NITROGEN 26 mg/dL (7-18); CALCIUM 8.2 mg/dL (8.5-10.1); CO2 25 mmol/L (21-32); CREATININE 1.3 mg/dL (0.55-1.02); GAMMA GLUTAMYL TRANSPEPTIDASE 724 U/L (5-85); GLUCOSE,RANDOM 136 mg/dL (74-106); SGOT/AST 64 U/L (15-37); SGPT/ALT 43 U/L (12-78); TOT PROT 5.3 g/dl (6.4-8.2)
[2017-10-07 09:49] LABS: BILIRUBIN,TOTAL < 0.1 mg/dL (0.2-1.0)
[2017-10-07] MEDS: PARoxetine HCL 10 MG TABLET (FP) PO SCH (10:38)
--- NOTE | 2017-10-07 13:56 | CON.GI ---
Consult Consult Specialty:: GI Reason for Consultation:: abnormal liver chemistry - History of Present Illness History of Present Illness: chart reviewed. Events noted. Gastroenterology consulted for abnormal liver chemistry. Intrahepatic cholestasis pattern. Mildly elevated AST with normal ALT, bilirubin, hemoglobin and platelet count. No documented history of liver disease such as autoimmune hepatitis, primary sclerosing cholangitis primary biliary cholangitis , inflammatory bowel disease. Not on any explicitly hepatotoxic medication at home. The patient reports no prior issues with liver. Denies personal, or family history of anemia, viral, genetic hepatitis. Denies chronic alcohol, NSAIDs. 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 Cardio/Vascular: Yes: HTN, Other (PAD) Pulmonary: Yes: Asthma Gastrointestinal: Yes: Pancreatitis Hepatobiliary: Yes: Other (ALCOHOLISM STOPPED ONE YEAR AGO) Renal/: Yes: Renal Inusuff, Other (PYLEONEPHRITIS RECENTLY AT [facility]) ...: No (hysterectomy) Endocrine: Yes: Diabetes Mellitus - Past Surgical History Past Surgical History: Yes: Cholecystectomy - Alcohol/Substance Use Hx Alcohol Use: No - Smoking History Smoking history: Former smoker Have you smoked in the past 12 months: No Aproximately how many cigarettes per day: 10 Home Medications - Allergies Allergies/Adverse Reactions: Allergies Allergy/AdvReac Type Severity Reaction Status Date / Time No Known Allergies Allergy Verified 10/05/17 12:47 - Home Medications Home Medications: Ambulatory Orders Aspirin [ASA -] 81 mg PO DAILY 05/04/15 Acetaminophen [Tylenol .Regular Strength -] 650 mg PO Q6H PRN #0 tablet Gabapentin [Neurontin -] 300 mg PO TID 09/08/16 Hydrochlorothiazide [Hctz -] 12.5 mg PO DAILY cap 09/08/16 Clopidogrel Bisulfate [Plavix -] 75 mg PO DAILY 09/10/17 Furosemide [Lasix -] 20 mg PO DAILY 09/10/17 Insulin (Novolog) [Novolog Flexpen -] 12 units SQ TID 09/10/17 Paroxetine HCl [Paxil -] 10 mg PO DAILY 09/10/17 Insulin Detemir [Levemir Flextouch] 100 unit SQ ASDIR #1 insuln.pen 09/12/17 Metoprolol Tartrate [Lopressor -] 25 mg PO BID #60 tablet 09/12/17 Pen Needle, Diabetic [Bd Ultra-Fine Pen Needle] 1 each MC BID #100 dis.needle Atorvastatin Ca [Lipitor] 40 mg PO HS #30 tablet 09/21/17 Oxycodone HCl [Oxycontin] 1 tab PO DAILY 10/05/17 Family Disease History - Family Disease History Family History: Unremarkable (noncontributory) Review of Systems Findings/Remarks: as per H&P and HPI Physical Exam-GI Vital Signs: Vital Signs Temperature 98.5 F 10/07/17 08:44 Pulse Rate 82 10/07/17 08:44 Respiratory Rate 18 10/07/17 08:44 Blood Pressure 107/66 10/07/17 08:44 O2 Sat by Pulse Oximetry (%) 98 10/07/17 09:00 Constitutional: Yes: Well Nourished, No Distress, Anxious Eyes: No: Sclera Icterus HENT: Yes: Atraumatic Neck: Yes: Supple Cardiovascular: No: Bradycardia, Tachycardia Respiratory: Yes: Regular Gastrointestinal Inspection: No: Ascites, Distention ...Auscultate: Yes: Normoactive Bowel Sounds ...Palpate: Yes: Soft, Tenderness. No: Firm/Rigid, Guarding, Mass, Tenderness, Rebound Neurological: Yes: Alert, Oriented Labs: CBC, BMP 10/07/17 08:15 10/07/17 08:15 INR, PTT INR 1.11 (0.82-1.09) 10/06/17 06:35 Laboratory Last Values WBC 11.1 K/mm3 (4.0-10.0) H D 10/07/17 08:15 RBC 3.71 M/mm3 (3.60-5.2) 10/07/17 08:15 Hgb 10.8 GM/dL (10.7-15.3) 10/07/17 08:15 Hct 32.9 % (32.4-45.2) 10/07/17 08:15 MCV 88.7 fl (80-96) 10/07/17 08:15 MCH 29.0 pg (25.7-33.7) 10/07/17 08:15 MCHC 32.7 g/dl (32.0-36.0) 10/07/17 08:15 RDW 14.2 % (11.6-15.6) 10/07/17 08:15 Plt Count 602 K/MM3 (134-434) H 10/07/17 08:15 MPV 7.9 fl (7.5-11.1) 10/07/17 08:15 Neutrophils % 69.0 % (42.8-82.8) 10/07/17 08:15 Lymphocytes % 19.8 % (8-40) 10/07/17 08:15 Monocytes % 6.9 % (3.8-10.2) 10/07/17 08:15 Eosinophils % 3.1 % (0-4.5) 10/07/17 08:15 Basophils % 1.2 % (0-2.0) 10/07/17 08:15 PT with INR 12.50 SEC (9.98-11.88) H 10/06/17 06:35 INR 1.11 (0.82-1.09) 10/06/17 06:35 PTT (Actin FS) 38.0 SECONDS (26.9-34.4) H D 10/05/17 14:30 VBG pH 7.31 (7.32-7.42) L 10/05/17 14:15 POC VBG pCO2 49.1 mmHg (38-52) 10/05/17 14:15 POC VBG pO2 22.9 mmHg (28-48) L 10/05/17 14:15 Mixed VBG HCO3 24.0 meq/L (19-25) 10/05/17 14:15 Sodium 143 mmol/L (136-145) 10/07/17 08:15 Potassium 4.8 mmol/L (3.5-5.1) 10/07/17 08:15 Chloride 110 mmol/L (98-107) H 10/07/17 08:15 Carbon Dioxide 25 mmol/L (21-32) 10/07/17 08:15 Anion Gap 8 (8-16) 10/07/17 08:15 BUN 26 mg/dL (7-18) H 10/07/17 08:15 Creatinine 1.3 mg/dL (0.55-1.02) H 10/07/17 08:15 Creat Clearance w eGFR 42.68 (>60) 10/07/17 08:15 POC Glucometer 177 UNITS (80-120) 10/07/17 10:42 Random Glucose 136 mg/dL (74-106) H 10/07/17 08:15 Hemoglobin A1c % 7.6 % (4.8-6.0) H 10/07/17 08:15 Lactic Acid 1.0 mmol/L (0.0-2.0) 10/05/17 14:30 Calcium 8.2 mg/dL (8.5-10.1) L 10/07/17 08:15 Phosphorus 6.2 mg/dL (2.5-4.9) H 10/06/17 06:35 Magnesium 2.5 mg/dL (1.8-2.4) H 10/06/17 06:35 Ferritin 102.550 ng/ml (6.9-282.5) 10/07/17 08:15 Total Bilirubin < 0.1 mg/dL (0.2-1.0) L 10/07/17 08:15 GGT 724 U/L (5-85) H D 10/07/17 08:15 AST 64 U/L (15-37) H 10/07/17 08:15 ALT 43 U/L (12-78) 10/07/17 08:15 Alkaline Phosphatase 663 U/L (45-117) H 10/07/17 08:15 Ammonia 27.11 umol/L (11-32) 10/07/17 08:15 Troponin I < 0.02 ng/ml (0.00-0.05) 10/05/17 20:00 Total Protein 5.3 g/dl (6.4-8.2) L 10/07/17 08:15 Albumin 1.5 g/dl (3.4-5.0) L 10/07/17 08:15 Vitamin B12 721 pg/ml (180-914) 10/07/17 08:15 TSH 0.91 uIU/ml (0.358-3.74) 10/07/17 08:15 Urine Color Yellow 10/06/17 22:45 Urine Appearance Cloudy 10/06/17 22:45 Urine pH 6.0 (5.0-8.0) 10/06/17 22:45 Ur Specific [place] 1.017 (1.001-1.035) 10/06/17 22:45 Urine Protein 3+ (NEGATIVE) H 10/06/17 22:45 Urine Glucose (UA) 2+ (NEGATIVE) H 10/06/17 22:45 Urine Ketones Negative (NEGATIVE) 10/06/17 22:45 Urine Blood Negative (NEGATIVE) 10/06/17 22:45 Urine Nitrite Negative (NEGATIVE) 10/06/17 22:45 Urine Bilirubin Negative (<2.0 mg/dL) 10/06/17 22:45 Urine Urobilinogen Negative mg/dL (0.2-1.0) 10/06/17 22:45 Ur Leukocyte Esterase Negative (NEGATIVE) 10/06/17 22:45 Urine WBC (Auto) 5 /hpf (3-5) 10/06/17 22:45 Urine RBC (Auto) 12 /hpf (0-3) 10/06/17 22:45 Ur Epithelial Cells Moderate /HPF (FEW) 10/06/17 22:45 Urine Bacteria Few /hpf (NONE SEEN) 10/06/17 22:45 Hyaline Casts 1 /lpf 10/06/17 22:45 Urine Mucus Rare 10/06/17 22:45 RPR Titer Nonreactive (NONREACTIVE) 10/07/17 08:15 Problem List - Problems (1) Intrahepatic cholestasis Code(s): K76.89 - OTHER SPECIFIED DISEASES OF LIVER Assessment/Plan 52-year-old female with the above acute medical and surgical issues presents with abnormal liver chemistries suggestive of intrahepatic cholestasis. Will obtain fractionated alkaline phosphatase, autoimmune, viral serologies and ultrasound of the liver. Avoid, or minimize all hepatotoxic medications. Discussed with the patient. Will follow.
--- NOTE | 2017-10-07 14:00 | PN ---
Progress Note (short form) - Note Progress Note: ID consult dictated imp/reccd asked to see for positive UA 52 year old female recently hospitalized for dry gangrene left 3rd toe, CVA - 09/22 plan was f/u with vascular for her foot she was sent for admission on 10/05 from wound care no fevers, she is alert no chills, +foot pain no dysuria, no frequency no suprapubic or flank pain she had a ua done in the ED with neg LE, and 5 wbc, moderate epis- urine culture with 3 organisms! suspect this is poor collection no signs uti-no need to treat agree with contact isolation for MRSA colonization- if antibiotics needed periop - would use vancomycin PAD with dry gangrene big toe, 3/4 toes for angioplasty Problem List - Problems (1) Asymptomatic bacteriuria Code(s): R82.71 - BACTERIURIA (2) PAD (peripheral artery disease) Code(s): I73.9 - PERIPHERAL VASCULAR DISEASE, UNSPECIFIED (3) Dry gangrene Code(s): I96 - GANGRENE, NOT ELSEWHERE CLASSIFIED (4) MRSA (methicillin resistant Staphylococcus aureus) colonization Code(s): Z22.322 - CARRIER OR SUSPECTED CARRIER OF METHICILLIN RESIS STAPH
--- NOTE | 2017-10-07 15:15 | CONS ---
DATE OF CONSULTATION: DATE OF DICTATION: 10/07/2017 REQUESTED BY: Katy Naidu MD This is a 52-year-old woman. She is admitted from the care home. She has a history of diabetes, peripheral arterial disease status post a right BKA 1 year ago. She was recently hospitalized at [facility]. She was here from the 12 of September until the 22 of September. Prior to that, she had just been at [facility], where she was noted to have dry gangrene of her left 3rd toe. She was advised BKA and she came to [facility] for a 2nd opinion. While at [facility], she was diagnosed with an acute CVA and she was sent to a SNF for rehab, with plans to bring her back for angioplasty and further evaluation of the gangrenous toe. She was seen in wound care clinic by the vascular surgeon on the and sent to the emergency room for admission. I am now asked to see her for positive urine culture. Her past medical history is notable for status post recent CVA, hypertension, peripheral arterial disease, asthma, pancreatitis, former alcohol user, stopped a year ago, history of pyelonephritis, diabetes. She is status post cholecystectomy and right BKA. As well, she has history of anxiety disorder. There is no history of any recent travel. Currently she is residing at the SNF. Family history is notable for mother, sister, and brother with diabetes; father with pancreatic cancer. She has no known drug allergies. SOCIAL HISTORY: Currently not working. 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 Has stopped smoking 5 years ago. She quit alcohol 20 years ago. There is no history of any substance use. Current medications at the time of admission include Paxil, OxyContin, Lopressor, insulin, hydrochlorothiazide, Neurontin, Lasix, Plavix, Lipitor, aspirin. REVIEW OF SYSTEMS: She currently has no complaints. She is alert. She knows she is in the hospital. She has pain in her legs. She has no dysuria. She notes she has some constipation. She has no frequency, no suprapubic or CVA tenderness. She has no shortness of breath or fevers or chills. PHYSICAL EXAMINATION: Vital Signs: Her temperature is 99.6. Pulse is 78. Blood pressure 149/83. Respiratory rate 18. She is saturating 98%. HEENT: She is normocephalic. Eyes are anicteric. Neck: Supple. Lungs: Clear to auscultation. Heart: Regular rate and rhythm. Abdomen: Soft, nontender. Extremities: Notable for dry gangrene of the 3rd and 4th toe and I think the tip of the 1st toe. Her leg is quite tender to touch. There is no associated erythema. Labs are notable for a white count 11.1, hemoglobin 10.8, platelets 602. BUN 26, creatinine 1.3. LFTs are notable for a GGT of 724, AST of 64, ALT of 43, alkaline phosphatase of 663. Urinalysis is notable for no leukocyte esterase, 5 white cells, and 12 red cells, with moderate epithelial cells. Blood cultures are negative from the 16th, and urine culture is growing 3 different bugs, this is all a clean catch, lactose-fermenting gram-negative, presumptive MRSA and group B streptococcus. Chest x-ray done on admission shows some mild elevation of the horizontal fissure, as on the previous chest x-ray. In summary, this is a 52-year-old woman, I suspect has asymptomatic bacteruria. Urinalysis is unremarkable. Urine culture is 3 organisms. I suspect this is a poor collection sample. No signs of UTI. No need to treat. I would agree with contact isolation for MRSA colonization. If antibiotics are needed perioperatively, would certainly use vancomycin as part of the regimen. Peripheral arterial disease with dry gangrene of the big toe, 3rd and 4th toes: For angioplasty and followup with Vascular. Further recommendations to follow. Gudelia FLOWERS/[id number]
--- NOTE | 2017-10-07 16:58 | PN ---
Progress Note, Physician History of Present Illness: Pt seen and examined at bedside. She is awake and appears comfortable. - Current Medication List Current Medications: Active Medications Acetaminophen (Tylenol -) 650 mg PO Q6H PRN PRN Reason: FEVER Last Admin: 10/07/17 08:03 Dose: 650 mg Atorvastatin Calcium (Lipitor -) 40 mg PO HS [facility] Last Admin: 10/06/17 21:10 Dose: 40 mg Furosemide (Lasix -) 20 mg PO DAILY [facility] Last Admin: 10/07/17 09:31 Dose: 20 mg Gabapentin (Neurontin -) 300 mg PO TID [facility] Last Admin: 10/07/17 13:18 Dose: 300 mg Heparin Sodium (Porcine) (Heparin -) 5,000 unit SQ TID [facility] Last Admin: 10/07/17 13:18 Dose: 5,000 unit Insulin Aspart (Novolog Vial Sliding Scale -) 1 vial SQ ACHS [facility] PRN Reason: Protocol Last Admin: 10/07/17 16:32 Dose: Not Given Insulin Detemir (Levemir Vial) 20 units SQ AM [facility] Last Admin: 10/07/17 08:01 Dose: 20 units Insulin Detemir (Levemir Vial) 15 units SQ HS [facility] Metoprolol Tartrate (Lopressor -) 25 mg PO BID [facility] Last Admin: 10/07/17 09:31 Dose: 25 mg Morphine Sulfate (Morphine Sulfate) 1 mg IVPUSH Q4H PRN PRN Reason: PAIN LEVEL 6-10 Last Admin: 10/07/17 13:18 Dose: 1 mg Paroxetine HCl (Paxil -) 10 mg PO DAILY [facility] Last Admin: 10/07/17 10:38 Dose: 10 mg - Objective Vital Signs: Vital Signs Temperature 99.6 F 10/07/17 14:06 Pulse Rate 78 10/07/17 14:06 Respiratory Rate 18 10/07/17 08:44 Blood Pressure 149/83 10/07/17 14:06 O2 Sat by Pulse Oximetry (%) 98 10/07/17 09:00 Constitutional: Yes: Calm Eyes: Yes: Conjunctiva Clear HENT: Yes: Atraumatic Neck: Yes: Supple Cardiovascular: Yes: S1, S2 Respiratory: Yes: CTA Bilaterally Gastrointestinal: Yes: Normal Bowel Sounds, Soft Genitourinary: Yes: WNL Extremities: Yes: Other (right bka) Edema: No Neurological: Yes: Oriented Labs: CBC, BMP 10/07/17 08:15 10/07/17 08:15 INR, PTT INR 1.11 (0.82-1.09) 10/06/17 06:35 Problem List - Problems (1) HTN (hypertension) Code(s): I10 - ESSENTIAL (PRIMARY) HYPERTENSION (2) CKD (chronic kidney disease) Code(s): N18.9 - CHRONIC KIDNEY DISEASE, UNSPECIFIED Assessment/Plan Current Medications Generic Name Dose Route Start Last Admin Trade Name Freq PRN Reason Stop Dose Admin Acetaminophen 650 mg 10/05/17 17:30 10/07/17 08:03 Tylenol - PO 650 mg Q6H PRN Administration FEVER Atorvastatin Calcium 40 mg 10/05/17 22:00 10/06/17 21:10 Lipitor - PO 40 mg HS [facility] Administration Furosemide 20 mg 10/06/17 10:00 10/07/17 09:31 Lasix - PO 20 mg DAILY [facility] Administration Gabapentin 300 mg 10/05/17 22:00 10/07/17 13:18 Neurontin - PO 300 mg TID [facility] Administration Heparin Sodium (Porcine) 5,000 unit 10/05/17 22:00 10/07/17 13:18 Heparin - SQ 5,000 unit TID [facility] Administration Insulin Aspart 1 vial 10/05/17 22:00 10/07/17 16:32 Novolog Vial Sliding Scale - SQ Not Given [facility] Protocol Insulin Detemir 20 units 10/07/17 07:00 10/07/17 08:01 Levemir Vial SQ 20 units AM [facility] Administration Insulin Detemir 15 units 10/07/17 22:00 Levemir Vial SQ HS [facility] Metoprolol Tartrate 25 mg 10/05/17 22:00 10/07/17 09:31 Lopressor - PO 25 mg BID [facility] Administration Morphine Sulfate 1 mg 10/05/17 17:31 10/07/17 13:18 Morphine Sulfate IVPUSH 1 mg Q4H PRN Administration PAIN LEVEL 6-10 Paroxetine HCl 10 mg 10/06/17 10:00 10/07/17 10:38 Paxil - PO 10 mg DAILY [facility] Administration Impression 1. CKD 2. PVD 3. altered mental status 4. DM 5. HTN 6. hyperkalemia 7. HLD 8. CVA Plan - check bmp - neuro workup in progress - cont current meds - repeat labs in am - will monitor potassium level
--- NOTE | 2017-10-07 16:58 | PN ---
Progress Note (short form) - Note Progress Note: VAscular Surgery CArotid dopplers WNL. For left lower ext angiogram amna Manzo DO
--- NOTE | 2017-10-07 19:23 | PN ---
Progress Note, Physician Chief Complaint: Left foot diabetic ulcer History of Present Illness: NAD, in bed - Current Medication List Current Medications: Active Medications Acetaminophen (Tylenol -) 650 mg PO Q6H PRN PRN Reason: FEVER Last Admin: 10/07/17 08:03 Dose: 650 mg Atorvastatin Calcium (Lipitor -) 40 mg PO HS [facility] Last Admin: 10/06/17 21:10 Dose: 40 mg Furosemide (Lasix -) 20 mg PO DAILY [facility] Last Admin: 10/07/17 09:31 Dose: 20 mg Gabapentin (Neurontin -) 300 mg PO TID [facility] Last Admin: 10/07/17 13:18 Dose: 300 mg Heparin Sodium (Porcine) (Heparin -) 5,000 unit SQ TID [facility] Last Admin: 10/07/17 13:18 Dose: 5,000 unit Insulin Aspart (Novolog Vial Sliding Scale -) 1 vial SQ ACHS [facility] PRN Reason: Protocol Last Admin: 10/07/17 16:32 Dose: Not Given Insulin Detemir (Levemir Vial) 20 units SQ AM [facility] Last Admin: 10/07/17 08:01 Dose: 20 units Insulin Detemir (Levemir Vial) 15 units SQ HS [facility] Metoprolol Tartrate (Lopressor -) 25 mg PO BID [facility] Last Admin: 10/07/17 09:31 Dose: 25 mg Morphine Sulfate (Morphine Sulfate) 1 mg IVPUSH Q4H PRN PRN Reason: PAIN LEVEL 6-10 Last Admin: 10/07/17 17:39 Dose: 1 mg Paroxetine HCl (Paxil -) 10 mg PO DAILY [facility] Last Admin: 10/07/17 10:38 Dose: 10 mg - Objective Vital Signs: Vital Signs Temperature 98.1 F 10/07/17 18:50 Pulse Rate 77 10/07/17 18:50 Respiratory Rate 20 10/07/17 18:50 Blood Pressure 146/86 10/07/17 18:50 O2 Sat by Pulse Oximetry (%) 98 10/07/17 09:00 Constitutional: Yes: Well Nourished, No Distress, Calm Cardiovascular: Yes: Regular Rate and Rhythm Respiratory: Yes: Regular Gastrointestinal: Yes: Normal Bowel Sounds, Soft Musculoskeletal: Yes: WNL Extremities: Yes: WNL Edema: No Peripheral Pulses WNL: Yes Neurological: Yes: Alert, Oriented Psychiatric: Yes: Alert, Oriented Labs: CBC, BMP 10/07/17 08:15 10/07/17 08:15 INR, PTT INR 1.11 (0.82-1.09) 10/06/17 06:35 Problem List - Problems (1) PATRICIA (acute kidney injury) Assessment/Plan: -nephrology on board -monitor trend Code(s): N17.9 - ACUTE KIDNEY FAILURE, UNSPECIFIED (2) Diabetes Assessment/Plan: -BGM -Diabetic diet -Insulin sliding scale -Endocrinology -RD consult -dietary compliance is an issue outpatient Code(s): E11.9 - TYPE 2 DIABETES MELLITUS WITHOUT COMPLICATIONS Qualifiers: Diabetes mellitus type: type 2 Diabetes mellitus complication status: with circulatory complication (3) MRSA (methicillin resistant Staphylococcus aureus) colonization Assessment/Plan: -colonization -ID on board -IV abx not recommended at this time Code(s): Z22.322 - CARRIER OR SUSPECTED CARRIER OF METHICILLIN RESIS STAPH (4) Ischemic foot Assessment/Plan: -Seen by Vascular surgery -For angio in AM Code(s): I99.8 - OTHER DISORDER OF CIRCULATORY SYSTEM (5) PAD (peripheral artery disease) Code(s): I73.9 - PERIPHERAL VASCULAR DISEASE, UNSPECIFIED Assessment/Plan see problem list
[2017-10-07] MEDS: ATORVASTATIN CA 40 MG TABLET (FP) PO SCH (21:33)
[2017-10-07] MEDS ORDERED: INSULIN (LEVEMIR) 100 UNITS/ML UNITS SQ SCH (22:00)
[2017-10-08] MEDS: HEPARIN NA (PORCINE) 5,000 UNITS/ML 1ML VIAL SQ SCH ×2 (05:55→21:20)
[2017-10-08 06:08] LABS: SERUM IRON SATURATION 21 % (15-55); TOTAL IRON BINDING CAPACITY 158 ug/dL (250-450); UIBC 125 ug/dL (131-425)
[2017-10-08] MEDS: GABAPENTIN 300 MG CAPSULE (FP) PO SCH ×2 (06:14→21:13)
[2017-10-08] MEDS: ACETAMINOPHEN 325 MG TABLET (FP) PO PRN ×2 (06:15→22:35)
[2017-10-08] MEDS: INSULIN SLIDING SCALE (NOVOLOG) 1 VIAL SQ SCH ×4 (06:24→21:18)
[2017-10-08] MEDS: INSULIN (LEVEMIR) 100 UNITS/ML UNITS SQ SCH ×2 (06:24→21:20)
[2017-10-08 07:55] LABS: ANION GAP 9 (8-16); BLOOD UREA NITROGEN 23 mg/dL (7-18); CALCIUM 8.4 mg/dL (8.5-10.1); CHLORIDE 108 mmol/L (98-107); CO2 24 mmol/L (21-32); GLUCOSE,RANDOM 146 mg/dL (74-106); POTASSIUM 5.1 mmol/L (3.5-5.1); SODIUM 141 mmol/L (136-145)
[2017-10-08 07:56] LABS: CREATININE 1.3 mg/dL (0.55-1.02)
[2017-10-08] MEDS: FUROSEMIDE 20 MG TABLET (FP) PO SCH ×2 (09:50→10:01)
[2017-10-08] MEDS: PARoxetine HCL 10 MG TABLET (FP) PO SCH ×2 (09:51→10:01)
[2017-10-08] MEDS: METOPROLOL TARTRATE 25 MG TABLET (FP) PO SCH ×2 (09:54→21:15)
[2017-10-08] MEDS ORDERED: PT OWN MED DRAWER 7, Y5N ONE (09:57)
[2017-10-08] MEDS ORDERED: INSULIN (LEVEMIR) 100 UNITS/ML UNITS SQ SCH ×2 (10:01→22:00)
[2017-10-08] MEDS ORDERED: HEPARIN NA (PORCINE) 5,000 UNITS/ML 1ML VIAL ONE ×3 (11:20→13:36)
[2017-10-08] MEDS ORDERED: LIDOCAINE HCL 1%, 10 MG/ML (20ML VIAL) ONE (11:20)
[2017-10-08] MEDS ORDERED: MIDAZOLAM HCL 2 MG/2 ML SINGLE DOSE VIAL ONE ×3 (12:07→12:36)
[2017-10-08] MEDS ORDERED: ceFAZolin SODIUM 1 GM VIAL IVPB ONE (12:15)
[2017-10-08] MEDS ORDERED: ceFAZolin SODIUM 1 GM VIAL ONE (12:16)
[2017-10-08] MEDS ORDERED: PROPOFOL 20 ML ONE ×2 (12:22→13:32)
[2017-10-08] MEDS ORDERED: LIDOCAINE HCL 1%, 10 MG/ML (50 mL VIAL) IJ ONE (12:22)
--- NOTE | 2017-10-08 13:13 | PN ---
Progress Note, Physician History of Present Illness: Pt seen and examined at bedside. She is awake and alert. She denies shortness of breath. - Current Medication List Current Medications: Active Medications Acetaminophen (Tylenol -) 650 mg PO Q6H PRN PRN Reason: FEVER Last Admin: 10/08/17 06:15 Dose: 650 mg Atorvastatin Calcium (Lipitor -) 40 mg PO HS [facility] Last Admin: 10/07/17 21:33 Dose: 40 mg Furosemide (Lasix -) 20 mg PO DAILY [facility] Last Admin: 10/08/17 10:01 Dose: 20 mg Gabapentin (Neurontin -) 300 mg PO TID [facility] Last Admin: 10/08/17 06:14 Dose: 300 mg Heparin Sodium (Porcine) (Heparin -) 5,000 unit SQ TID [facility] Last Admin: 10/08/17 05:55 Dose: Not Given Insulin Aspart (Novolog Vial Sliding Scale -) 1 vial SQ ACHS [facility] PRN Reason: Protocol Last Admin: 10/08/17 10:10 Dose: Not Given Insulin Detemir (Levemir Vial) 15 units SQ AM [facility] Insulin Detemir (Levemir Vial) 8 units SQ HS [facility] Metoprolol Tartrate (Lopressor -) 25 mg PO BID [facility] Last Admin: 10/08/17 09:54 Dose: 25 mg Morphine Sulfate (Morphine Sulfate) 1 mg IVPUSH Q4H PRN PRN Reason: PAIN LEVEL 6-10 Last Admin: 10/07/17 21:29 Dose: 1 mg Paroxetine HCl (Paxil -) 10 mg PO DAILY [facility] Last Admin: 10/08/17 10:01 Dose: 10 mg - Objective Vital Signs: Vital Signs Temperature 97.9 F 10/08/17 08:00 Pulse Rate 78 10/08/17 10:00 Respiratory Rate 20 10/08/17 10:00 Blood Pressure 136/79 10/08/17 10:00 O2 Sat by Pulse Oximetry (%) 98 10/08/17 08:00 Constitutional: Yes: Calm Eyes: Yes: Conjunctiva Clear HENT: Yes: Atraumatic Neck: Yes: Supple Cardiovascular: Yes: S1, S2 Respiratory: Yes: CTA Bilaterally Gastrointestinal: Yes: Soft Genitourinary: Yes: WNL Musculoskeletal: Yes: Other (right bka) Edema: No Neurological: Yes: Oriented Labs: CBC, BMP 10/07/17 08:15 10/08/17 07:00 INR, PTT INR 1.11 (0.82-1.09) 10/06/17 06:35 Problem List - Problems (1) HTN (hypertension) Code(s): I10 - ESSENTIAL (PRIMARY) HYPERTENSION (2) CKD (chronic kidney disease) Code(s): N18.9 - CHRONIC KIDNEY DISEASE, UNSPECIFIED Assessment/Plan Current Medications Generic Name Dose Route Start Last Admin Trade Name Freq PRN Reason Stop Dose Admin Acetaminophen 650 mg 10/05/17 17:30 10/08/17 06:15 Tylenol - PO 650 mg Q6H PRN Administration FEVER Atorvastatin Calcium 40 mg 10/05/17 22:00 10/07/17 21:33 Lipitor - PO 40 mg HS [facility] Administration Furosemide 20 mg 10/06/17 10:00 10/08/17 10:01 Lasix - PO 20 mg DAILY [facility] Administration Gabapentin 300 mg 10/05/17 22:00 10/08/17 06:14 Neurontin - PO 300 mg TID [facility] Administration Heparin Sodium (Porcine) 5,000 unit 10/05/17 22:00 10/08/17 05:55 Heparin - SQ Not Given TID [facility] Insulin Aspart 1 vial 10/05/17 22:00 10/08/17 10:10 Novolog Vial Sliding Scale - SQ Not Given ACHS [facility] Protocol Insulin Detemir 15 units 10/08/17 10:01 Levemir Vial SQ AM [facility] Insulin Detemir 8 units 10/08/17 22:00 Levemir Vial SQ HS [facility] Metoprolol Tartrate 25 mg 10/05/17 22:00 10/08/17 09:54 Lopressor - PO 25 mg BID [facility] Administration Morphine Sulfate 1 mg 10/05/17 17:31 10/07/17 21:29 Morphine Sulfate IVPUSH 1 mg Q4H PRN Administration PAIN LEVEL 6-10 Paroxetine HCl 10 mg 10/06/17 10:00 10/08/17 10:01 Paxil - PO 10 mg DAILY [facility] Administration Impression 1. CKD 2. PVD 3. altered mental status 4. DM 5. HTN 6. hyperkalemia 7. HLD 8. CVA Plan - potassium is stable - vascular follow up for leg - low potassium diet - repeat labs in am - start fluids and hold lasix of getting contrast - will monitor potassium level
--- NOTE | 2017-10-08 14:19 | OP ---
Operative Note - Note: Operative Date: 10/08/17 Pre-Operative Diagnosis: Left foot gangrene Operation: aortogram, LLE angiogram, tibial artery angioplasty Post-Operative Diagnosis: Same as Pre-op Surgeon: Jose Manzo Anesthesia: Fractional Estimated Blood Loss (mls): 50 Operative Report Dictated: Yes
[2017-10-08] MEDS ORDERED: ONDANSETRON 4 MG/2 ML VIAL IVPUSH PRN (14:30)
[2017-10-08] MEDS ORDERED: METOPROLOL TARTRATE 5 MG/5 ML VIAL ONE (14:31)
[2017-10-08] MEDS ORDERED: METOPROLOL TARTRATE 5 MG/5 ML VIAL IVPUSH ONE (14:45)
[2017-10-08] MEDS ORDERED: LACTATED RINGERS SOLUTION 1,000 ML IV SCH (14:45)
[2017-10-08] MEDS ORDERED: LABETALOL HCL 5 MG/1 ML (100MG/20 ML VIAL) ONE (15:18)
[2017-10-08] MEDS ORDERED: CLOPIDOGREL BISULFATE 75 MG TABLET (FP) ONE (15:47)
[2017-10-08] MEDS: CLOPIDOGREL BISULFATE 75 MG TABLET (FP) PO SCH (15:50)
--- NOTE | 2017-10-08 17:25 | PN ---
Progress Note, Physician Chief Complaint: patient back from angioplasty - Current Medication List Current Medications: Active Medications Acetaminophen (Tylenol -) 650 mg PO Q6H PRN PRN Reason: FEVER Atorvastatin Calcium (Lipitor -) 40 mg PO HS [facility] Clopidogrel Bisulfate (Plavix -) 75 mg PO DAILY [facility] Last Admin: 10/08/17 15:50 Dose: 75 mg Furosemide (Lasix -) 20 mg PO DAILY [facility] Gabapentin (Neurontin -) 300 mg PO TID [facility] Heparin Sodium (Porcine) (Heparin -) 5,000 unit SQ TID [facility] Insulin Aspart (Novolog Vial Sliding Scale -) 1 vial SQ ACHS [facility] PRN Reason: Protocol Last Admin: 10/08/17 17:01 Dose: Not Given Insulin Detemir (Levemir Vial) 15 units SQ AM [facility] Insulin Detemir (Levemir Vial) 8 units SQ HS [facility] Metoprolol Tartrate (Lopressor -) 25 mg PO BID [facility] Morphine Sulfate (Morphine Sulfate) 1 mg IVPUSH Q4H PRN PRN Reason: PAIN LEVEL 6-10 Paroxetine HCl (Paxil -) 10 mg PO DAILY [facility] - Objective Vital Signs: Vital Signs Temperature 97.9 F 10/08/17 14:13 Pulse Rate 63 10/08/17 15:30 Respiratory Rate 20 10/08/17 15:30 Blood Pressure 163/83 10/08/17 15:30 O2 Sat by Pulse Oximetry (%) 98 10/08/17 15:30 Constitutional: Yes: Calm Neck: Yes: Trachea Midline Cardiovascular: Yes: Regular Rate and Rhythm, S1, S2 Respiratory: Yes: CTA Bilaterally Gastrointestinal: Yes: Soft Labs: CBC, BMP 10/07/17 08:15 10/08/17 07:00 INR, PTT INR 1.11 (0.82-1.09) 10/06/17 06:35 Problem List - Problems (1) Foot pain, left Assessment/Plan: PVD- Note: Operative Date: 10/08/17 Pre-Operative Diagnosis: Left foot gangrene Operation: aortogram, LLE angiogram, tibial artery angioplasty Post-Operative Diagnosis: Same as Pre-op Surgeon: Jose Manzo Anesthesia: Fractional Estimated Blood Loss (mls): 50 Operative Report Dictated: Yes Code(s): M79.672 - PAIN IN LEFT FOOT (2) CKD (chronic kidney disease) Assessment/Plan: hold lasix today and give ivf bc of angioplasty Code(s): N18.9 - CHRONIC KIDNEY DISEASE, UNSPECIFIED (3) Diabetes Assessment/Plan: levemir bid sliding scale hgba1c endocrine consult appreciate will not increase insulin given bgm are ok Code(s): E11.9 - TYPE 2 DIABETES MELLITUS WITHOUT COMPLICATIONS Qualifiers: Diabetes mellitus type: type 2 (4) HTN (hypertension) Assessment/Plan: cardiology for clearance noted on metoprolol on statin Code(s): I10 - ESSENTIAL (PRIMARY) HYPERTENSION (5) Anemia Assessment/Plan: iron panel Code(s): D64.9 - ANEMIA, UNSPECIFIED
[2017-10-08] MEDS ORDERED: SODIUM CHLORIDE 1,000 ML IV SCH (17:45)
[2017-10-08] MEDS: morphine SULFATE 4 MG/ML VIAL IVPUSH PRN (18:54)
[2017-10-08] MEDS: ATORVASTATIN CA 40 MG TABLET (FP) PO SCH (21:14)
[2017-10-09] MEDS: morphine SULFATE 4 MG/ML VIAL IVPUSH PRN ×2 (02:46→11:27)
[2017-10-09] MEDS: GABAPENTIN 300 MG CAPSULE (FP) PO SCH ×3 (06:28→22:15)
[2017-10-09] MEDS: INSULIN (LEVEMIR) 100 UNITS/ML UNITS SQ SCH ×2 (06:28→22:15)
[2017-10-09] MEDS: HEPARIN NA (PORCINE) 5,000 UNITS/ML 1ML VIAL SQ SCH ×3 (06:28→22:15)
[2017-10-09] MEDS: INSULIN SLIDING SCALE (NOVOLOG) 1 VIAL SQ SCH ×4 (06:29→22:16)
[2017-10-09 08:37] LABS: BASO % 0.6 % (0-2.0); EOS % 2.8 % (0-4.5); HEMATOCRIT 31.6 % (32.4-45.2); HEMOGLOBIN 10.4 GM/dL (10.7-15.3); LYMPH % 12.9 % (8-40); MCH 29.2 pg (25.7-33.7); MEAN CELL VOLUME 88.6 fl (80-96); MEAN PLT VOLUME 7.7 fl (7.5-11.1); MONO % 8.8 % (3.8-10.2); NEUT % 74.9 % (42.8-82.8); PLATELET COUNT 582 K/MM3 (134-434); RBC 3.56 M/mm3 (3.60-5.2); RDW 13.8 % (11.6-15.6); WHITE BLOOD COUNT 11.8 K/mm3 (4.0-10.0)
[2017-10-09 08:43] LABS: ANION GAP 7 (8-16); BLOOD UREA NITROGEN 17 mg/dL (7-18); CALCIUM 8.7 mg/dL (8.5-10.1); CHLORIDE 108 mmol/L (98-107); CO2 27 mmol/L (21-32); GLUCOSE,RANDOM 73 mg/dL (74-106); POTASSIUM 4.9 mmol/L (3.5-5.1); SODIUM 142 mmol/L (136-145)
--- NOTE | 2017-10-09 08:53 | PN ---
Progress Note, Physician - Current Medication List Current Medications: Active Medications Acetaminophen (Tylenol -) 650 mg PO Q6H PRN PRN Reason: FEVER Last Admin: 10/08/17 22:35 Dose: 650 mg Atorvastatin Calcium (Lipitor -) 40 mg PO HS [facility] Last Admin: 10/08/17 21:14 Dose: 40 mg Clopidogrel Bisulfate (Plavix -) 75 mg PO DAILY [facility] Last Admin: 10/08/17 15:50 Dose: 75 mg Gabapentin (Neurontin -) 300 mg PO TID [facility] Last Admin: 10/09/17 06:28 Dose: 300 mg Heparin Sodium (Porcine) (Heparin -) 5,000 unit SQ TID [facility] Last Admin: 10/09/17 06:28 Dose: 5,000 unit Sodium Chloride (Normal Saline -) 1,000 mls @ 50 mls/hr IV ASDIR [facility] Stop: 10/09/17 17:34 Last Admin: 10/08/17 18:10 Dose: 50 mls/hr Insulin Aspart (Novolog Vial Sliding Scale -) 1 vial SQ ACHS [facility] PRN Reason: Protocol Last Admin: 10/09/17 06:29 Dose: Not Given Insulin Detemir (Levemir Vial) 15 units SQ AM [facility] Last Admin: 10/09/17 06:28 Dose: 15 units Insulin Detemir (Levemir Vial) 8 units SQ HS [facility] Last Admin: 10/08/17 21:20 Dose: 8 units Metoprolol Tartrate (Lopressor -) 25 mg PO BID [facility] Last Admin: 10/08/17 21:15 Dose: 25 mg Morphine Sulfate (Morphine Sulfate) 1 mg IVPUSH Q4H PRN PRN Reason: PAIN LEVEL 6-10 Last Admin: 10/09/17 02:46 Dose: 1 mg Paroxetine HCl (Paxil -) 10 mg PO DAILY [facility] - Objective Vital Signs: Vital Signs Temperature 98.5 F 10/09/17 06:00 Pulse Rate 80 10/09/17 06:00 Respiratory Rate 18 10/09/17 06:00 Blood Pressure 139/90 10/09/17 06:00 O2 Sat by Pulse Oximetry (%) 97 10/08/17 21:00 Cardiovascular: Yes: S1, S2 Respiratory: Yes: Regular, CTA Bilaterally Gastrointestinal: Yes: Normal Bowel Sounds, Soft Extremities: Yes: Amputation Peripheral Pulses WNL: No (doppler) Labs: CBC, BMP 10/09/17 07:40 10/09/17 07:40 INR, PTT INR 1.11 (0.82-1.09) 10/06/17 06:35 Assessment/Plan - Problems (1) Foot pain, left Assessment/Plan: PVD- Note: Operative Date: 10/08/17 Pre-Operative Diagnosis: Left foot gangrene Operation: aortogram, LLE angiogram, tibial artery angioplasty Post-Operative Diagnosis: Same as Pre-op Surgeon: Jose Manzo Anesthesia: Fractional Estimated Blood Loss (mls): 50 Operative Report Dictated: Yes Code(s): M79.672 - PAIN IN LEFT FOOT (2) CKD (chronic kidney disease) Assessment/Plan: hold lasix today and give ivf bc of angioplasty Code(s): N18.9 - CHRONIC KIDNEY DISEASE, UNSPECIFIED (3) Diabetes Assessment/Plan: levemir bid sliding scale hgba1c endocrine consult appreciate will not increase insulin given bgm are ok Code(s): E11.9 - TYPE 2 DIABETES MELLITUS WITHOUT COMPLICATIONS Qualifiers: Diabetes mellitus type: type 2 (4) HTN (hypertension) Assessment/Plan: cardiology for clearance noted on metoprolol on statin Code(s): I10 - ESSENTIAL (PRIMARY) HYPERTENSION (5) Anemia Assessment/Plan: iron panel ct scan gi Code(s): D64.9 - ANEMIA, UNSPECIFIED
--- NOTE | 2017-10-09 09:11 | PN ---
Progress Note (short form) - Note Progress Note: surgery POD #1 aortogram, LLE angiogram, tibial artery angioplasty Patient seen and examined by the bedside. Patient appears lethargic but resting comfortably. Nursing states the patient was calm overnight with no complaints. Vital Signs Temp 98.5 F 10/09/17 06:00 Pulse 80 10/09/17 06:00 Resp 18 10/09/17 06:00 BP 139/90 10/09/17 06:00 Pulse Ox 97 10/08/17 21:00 Intake & Output 10/08/17 10/08/17 10/09/17 11:59 23:59 11:59 Intake Total 2200 600 Output Total 1050 Balance 1150 600 Intake: IV 1800 600 Normal Saline - 1,000 ml 600 @ 50 mls/hr IV ASDIR [facility] Rx#:[id number] Oral 400 Output: Urine 1000 Void 1000 Estimated Blood Loss 50 Other: Voiding Method Bedside Commode Bedside Commode # Unmeasured Voids Void 3 3 Bowel Movement Yes Yes # Bowel Movements 0 CBC, BMP 10/09/17 07:40 10/09/17 07:40 PE: A&Ox3, lethargic, responds to commands but not engaging in conversation. unlabored resp on 2L NC right groin site clean and dry, no d/c or tracking erythema, right thigh is soft and supple. Left Leg thigh soft and supple. Left calf no evidence of erythema or edema but tender to palpation with movement-likely ischemic pain. left foot is cool to touch-no palpable pulse but Doppler preformed on left Dorsalis Pedis and vascular flow was heard with the nurse and Dr Naidu. Dry gangrene over 3rd and 4th toes Problem List - Problems (1) PAD (peripheral artery disease) Assessment/Plan: POD #1 Aortogram and LEft LE angiogram with angioplasty with +DP dopplers post op 1) no further surgical management at this time-reconsult PRN 2) Continue DVT prophylaxis 3) Follow up with Dr Manzo as out patient On behalf of Dr Manzo, thank you for the opportunity to participate in this patient's care. Code(s): I73.9 - PERIPHERAL VASCULAR DISEASE, UNSPECIFIED
[2017-10-09] MEDS ORDERED: PARoxetine HCL 10 MG TABLET (FP) PO SCH (10:00)
[2017-10-09] MEDS ORDERED: FUROSEMIDE 20 MG TABLET (FP) PO SCH (10:00)
[2017-10-09] MEDS ORDERED: PT OWN MED DRAWER 7, Y5N ONE (10:29)
[2017-10-09] MEDS ORDERED: INSULIN (NOVOLOG) ASPART 100 UNITS/ML 10ML VIAL ONE (10:29)
[2017-10-09] MEDS: METOPROLOL TARTRATE 25 MG TABLET (FP) PO SCH ×2 (10:32→22:15)
[2017-10-09] MEDS: CLOPIDOGREL BISULFATE 75 MG TABLET (FP) PO SCH (10:32)
[2017-10-09 14:25] LABS: ALBUMIN 1.4 g/dl (3.4-5.0); ALK PHOS 558 U/L (45-117); ANION GAP 6 (8-16); BILIRUBIN,DIRECT < 0.2 mg/dL (0.0-0.2); BILIRUBIN,TOTAL 0.2 mg/dL (0.2-1.0); BLOOD UREA NITROGEN 17 mg/dL (7-18); CALCIUM 8.3 mg/dL (8.5-10.1); CHLORIDE 111 mmol/L (98-107); CO2 24 mmol/L (21-32); GLUCOSE,RANDOM 63 mg/dL (74-106); SGPT/ALT 25 U/L (12-78); SODIUM 141 mmol/L (136-145); TOT PROT 5.3 g/dl (6.4-8.2)
[2017-10-09 14:26] LABS: POTASSIUM 5.1 mmol/L (3.5-5.1); SGOT/AST 28 U/L (15-37)
--- NOTE | 2017-10-09 16:03 | PN ---
Progress Note (short form) - Note Progress Note: Post op day#1.S/p LLE angiogram with angioplasty under MAC uneventful.Patient stable.No any anesthesia related problem.Patient Dc from the anesthesia care.
--- NOTE | 2017-10-09 16:29 | PN ---
Progress Note, Physician History of Present Illness: Pt seen and examined at bedside. She denies shortness of breath. - Current Medication List Current Medications: Active Medications Acetaminophen (Tylenol -) 650 mg PO Q6H PRN PRN Reason: FEVER Last Admin: 10/08/17 22:35 Dose: 650 mg Atorvastatin Calcium (Lipitor -) 40 mg PO HS [facility] Last Admin: 10/08/17 21:14 Dose: 40 mg Clopidogrel Bisulfate (Plavix -) 75 mg PO DAILY [facility] Last Admin: 10/09/17 10:32 Dose: 75 mg Gabapentin (Neurontin -) 300 mg PO TID [facility] Last Admin: 10/09/17 14:42 Dose: 300 mg Heparin Sodium (Porcine) (Heparin -) 5,000 unit SQ TID [facility] Last Admin: 10/09/17 14:42 Dose: 5,000 unit Sodium Chloride (Normal Saline -) 1,000 mls @ 50 mls/hr IV ASDIR [facility] Stop: 10/09/17 17:34 Last Admin: 10/08/17 18:10 Dose: 50 mls/hr Insulin Aspart (Novolog Vial Sliding Scale -) 1 vial SQ ACHS [facility] PRN Reason: Protocol Last Admin: 10/09/17 10:41 Dose: Not Given Insulin Detemir (Levemir Vial) 15 units SQ AM [facility] Last Admin: 10/09/17 06:28 Dose: 15 units Insulin Detemir (Levemir Vial) 8 units SQ HS [facility] Last Admin: 10/08/17 21:20 Dose: 8 units Metoprolol Tartrate (Lopressor -) 25 mg PO BID [facility] Last Admin: 10/09/17 10:32 Dose: 25 mg Morphine Sulfate (Morphine Sulfate) 1 mg IVPUSH Q4H PRN PRN Reason: PAIN LEVEL 6-10 Last Admin: 10/09/17 11:27 Dose: 1 mg Paroxetine HCl (Paxil -) 10 mg PO DAILY [facility] Last Admin: 10/09/17 10:32 Dose: 10 mg - Objective Vital Signs: Vital Signs Temperature 99.1 F 10/09/17 15:41 Pulse Rate 82 10/09/17 15:41 Respiratory Rate 20 10/09/17 15:41 Blood Pressure 164/82 10/09/17 15:41 O2 Sat by Pulse Oximetry (%) 95 10/09/17 08:00 Constitutional: Yes: Calm Eyes: Yes: Conjunctiva Clear HENT: Yes: Atraumatic Cardiovascular: Yes: S1, S2 Respiratory: Yes: CTA Bilaterally Gastrointestinal: Yes: Soft Genitourinary: Yes: WNL Extremities: Yes: Other (right bka) Neurological: Yes: Oriented Psychiatric: Yes: Agitated Labs: CBC, BMP 10/09/17 07:40 10/09/17 13:50 INR, PTT INR 1.11 (0.82-1.09) 10/06/17 06:35 Problem List - Problems (1) HTN (hypertension) Code(s): I10 - ESSENTIAL (PRIMARY) HYPERTENSION (2) CKD (chronic kidney disease) Code(s): N18.9 - CHRONIC KIDNEY DISEASE, UNSPECIFIED Assessment/Plan Current Medications Generic Name Dose Route Start Last Admin Trade Name Freq PRN Reason Stop Dose Admin Acetaminophen 650 mg 10/08/17 14:51 10/08/17 22:35 Tylenol - PO 650 mg Q6H PRN Administration FEVER Atorvastatin Calcium 40 mg 10/08/17 22:00 10/08/17 21:14 Lipitor - PO 40 mg HS [facility] Administration Clopidogrel Bisulfate 75 mg 10/08/17 14:45 10/09/17 10:32 Plavix - PO 75 mg DAILY [facility] Administration Gabapentin 300 mg 10/08/17 22:00 10/09/17 14:42 Neurontin - PO 300 mg TID [facility] Administration Heparin Sodium (Porcine) 5,000 unit 10/08/17 22:00 10/09/17 14:42 Heparin - SQ 5,000 unit TID [facility] Administration Sodium Chloride 1,000 mls @ 50 mls/hr 10/08/17 17:45 10/08/17 18:10 Normal Saline - IV 10/09/17 17:34 50 mls/hr ASDIR [facility] Administration Insulin Aspart 1 vial 10/08/17 16:30 10/09/17 16:27 Novolog Vial Sliding Scale - SQ Not Given ACHS [facility] Protocol Insulin Detemir 15 units 10/09/17 07:00 10/09/17 06:28 Levemir Vial SQ 15 units AM [facility] Administration Insulin Detemir 8 units 10/08/17 22:00 10/08/17 21:20 Levemir Vial SQ 8 units HS [facility] Administration Metoprolol Tartrate 25 mg 10/08/17 22:00 10/09/17 10:32 Lopressor - PO 25 mg BID [facility] Administration Morphine Sulfate 1 mg 10/08/17 14:51 10/09/17 11:27 Morphine Sulfate IVPUSH 1 mg Q4H PRN Administration PAIN LEVEL 6-10 Paroxetine HCl 10 mg 10/09/17 10:00 10/09/17 10:32 Paxil - PO 10 mg DAILY [facility] Administration Impression 1. CKD 2. PVD 3. altered mental status 4. DM 5. HTN 6. hyperkalemia 7. HLD 8. CVA Plan - repeat labs in am - can stop fluids - potassium restriction - low potassium diet - repeat labs in am
--- NOTE | 2017-10-09 16:47 | CON.PSY ---
Psychiatry Consult Chief Complaint: 52 year old female with history of CVA and BKA with chronic medical conditions. Patient seen for Psych evaluation. Symptoms: reports: Depressed Mood, Anhedonia - Previous Psychiatric Treatment Outpatient: None Inpatient: None - Previous Substance Abuse Treatment Outpatient: None Inpatient: None - Reason for Previous Treatment Reason for Previous Treatment: Major Depression - Current Medications Current Medications: Active Medications Acetaminophen (Tylenol -) 650 mg PO Q6H PRN PRN Reason: FEVER Last Admin: 10/08/17 22:35 Dose: 650 mg Atorvastatin Calcium (Lipitor -) 40 mg PO HS [facility] Last Admin: 10/08/17 21:14 Dose: 40 mg Clopidogrel Bisulfate (Plavix -) 75 mg PO DAILY [facility] Last Admin: 10/09/17 10:32 Dose: 75 mg Gabapentin (Neurontin -) 300 mg PO TID [facility] Last Admin: 10/09/17 14:42 Dose: 300 mg Heparin Sodium (Porcine) (Heparin -) 5,000 unit SQ TID [facility] Last Admin: 10/09/17 14:42 Dose: 5,000 unit Insulin Aspart (Novolog Vial Sliding Scale -) 1 vial SQ ACHS [facility] PRN Reason: Protocol Last Admin: 10/09/17 16:27 Dose: Not Given Insulin Detemir (Levemir Vial) 15 units SQ AM [facility] Last Admin: 10/09/17 06:28 Dose: 15 units Insulin Detemir (Levemir Vial) 8 units SQ HS [facility] Last Admin: 10/08/17 21:20 Dose: 8 units Metoprolol Tartrate (Lopressor -) 25 mg PO BID [facility] Last Admin: 10/09/17 10:32 Dose: 25 mg Morphine Sulfate (Morphine Sulfate) 1 mg IVPUSH Q4H PRN PRN Reason: PAIN LEVEL 6-10 Last Admin: 10/09/17 11:27 Dose: 1 mg Paroxetine HCl (Paxil -) 10 mg PO DAILY [facility] Last Admin: 10/09/17 10:32 Dose: 10 mg - Allergies Allergies: Allergies Allergy/AdvReac Type Severity Reaction Status Date / Time No Known Allergies Allergy Verified 10/05/17 12:47 - Current Living Status Usual Living Arrangement: With Significant Other - Current Mental Status Evaluation Appearance: Disheveled Attitude: Guarded - Affect Affect: Constrictive Appropriateness: Appropriate to Content - Mood Mood: Depressed - Speech/Language Expressive: Coherent - Psychomotor Activity Psychomotor Activity: Slowed - Thought Process Thought Process: Circumstantial - Thought Content Hallucinations: Absent Delusions: Absent - Self Perception Self Perception: No Impairment - Cognition Attention: Alert Orientation: Time Memory, Immediate Recall: Intact Memory, Short Term: 2/3 Memory, Remote with Promptin/3 - Concentration Serial Sevens Intact: No Simple Calculations Intact: No - Abstraction Proverb Interpretation: Intact Judgement: Minimally Impaired - Insight Insight: Intact - Impulse Control Impulse Control: Minimally Impaired - Suicidal Ideation Suicidal Ideation: No - Homicidal Ideation Homicidal Ideation: No Assessment/Plan 1) d/c Paxil 2) Start cymbalta 20 mg po od.
--- NOTE | 2017-10-09 17:25 | PN ---
Progress Note (short form) - Note Progress Note: Vascular Surgery Pt seen and examined. S/P Left lower ext angiogram, with ant tibial artery angioplasty Pt has dopplerable DP pulse in right foot. Pt has minimal runoff into foot. There is no bypassable disease. If foot does not heal, pt will need a bka. Pt would benefit from H[facility] Can get as outpt. Can be DC to [place] and follow up in wound care clinic. Jose dillard DO
[2017-10-09] MEDS: ATORVASTATIN CA 40 MG TABLET (FP) PO SCH (22:15)
[2017-10-10] MEDS: HEPARIN NA (PORCINE) 5,000 UNITS/ML 1ML VIAL SQ SCH ×3 (06:38→21:02)
[2017-10-10] MEDS: INSULIN SLIDING SCALE (NOVOLOG) 1 VIAL SQ SCH ×4 (06:39→21:01)
[2017-10-10] MEDS: INSULIN (LEVEMIR) 100 UNITS/ML UNITS SQ SCH ×2 (06:39→21:01)
[2017-10-10] MEDS: GABAPENTIN 300 MG CAPSULE (FP) PO SCH ×3 (06:39→21:02)
[2017-10-10 08:38] LABS: ANION GAP 7 (8-16); BLOOD UREA NITROGEN 17 mg/dL (7-18); CALCIUM 8.2 mg/dL (8.5-10.1); CHLORIDE 110 mmol/L (98-107); CO2 25 mmol/L (21-32); CREATININE 1.1 mg/dL (0.55-1.02); GLUCOSE,RANDOM 138 mg/dL (74-106); POTASSIUM 4.6 mmol/L (3.5-5.1); SODIUM 142 mmol/L (136-145)
[2017-10-10] MEDS ORDERED: DULoxetine HCL 20 MG CAPSULE.DR (FP) PO SCH (10:00)
[2017-10-10] MEDS: METOPROLOL TARTRATE 25 MG TABLET (FP) PO SCH ×2 (10:43→21:02)
[2017-10-10] MEDS: CLOPIDOGREL BISULFATE 75 MG TABLET (FP) PO SCH (10:43)
[2017-10-10] MEDS ORDERED: INSULIN (NOVOLOG) ASPART 100 UNITS/ML 10ML VIAL ONE ×2 (11:04→20:35)
--- NOTE | 2017-10-10 14:31 | PN ---
Progress Note, Physician History of Present Illness: Pt seen and examined at bedside. She remains confused. - Current Medication List Current Medications: Active Medications Acetaminophen (Tylenol -) 650 mg PO Q6H PRN PRN Reason: FEVER Last Admin: 10/08/17 22:35 Dose: 650 mg Atorvastatin Calcium (Lipitor -) 40 mg PO HS [facility] Last Admin: 10/09/17 22:15 Dose: 40 mg Clopidogrel Bisulfate (Plavix -) 75 mg PO DAILY [facility] Last Admin: 10/10/17 10:43 Dose: 75 mg Duloxetine HCl (Cymbalta -) 20 mg PO DAILY [facility] Last Admin: 10/10/17 10:43 Dose: 20 mg Gabapentin (Neurontin -) 300 mg PO TID [facility] Last Admin: 10/10/17 14:11 Dose: 300 mg Heparin Sodium (Porcine) (Heparin -) 5,000 unit SQ TID [facility] Last Admin: 10/10/17 14:11 Dose: 5,000 unit Insulin Aspart (Novolog Vial Sliding Scale -) 1 vial SQ [facility] PRN Reason: Protocol Last Admin: 10/10/17 11:43 Dose: Not Given Insulin Detemir (Levemir Vial) 15 units SQ AM [facility] Last Admin: 10/10/17 06:39 Dose: 15 units Insulin Detemir (Levemir Vial) 8 units SQ HS [facility] Last Admin: 10/09/17 22:15 Dose: Not Given Metoprolol Tartrate (Lopressor -) 25 mg PO BID [facility] Last Admin: 10/10/17 10:43 Dose: 25 mg Morphine Sulfate (Morphine Sulfate) 1 mg IVPUSH Q4H PRN PRN Reason: PAIN LEVEL 6-10 Last Admin: 10/09/17 11:27 Dose: 1 mg - Objective Vital Signs: Vital Signs Temperature 99.2 F 10/10/17 13:56 Pulse Rate 83 10/10/17 13:56 Respiratory Rate 20 10/10/17 13:56 Blood Pressure 158/83 10/10/17 13:56 O2 Sat by Pulse Oximetry (%) 95 10/10/17 09:00 Constitutional: Yes: Calm Eyes: Yes: Conjunctiva Clear HENT: Yes: Atraumatic Neck: Yes: Supple Cardiovascular: Yes: S1, S2 Respiratory: Yes: CTA Bilaterally Gastrointestinal: Yes: Normal Bowel Sounds, Soft Musculoskeletal: Yes: Other (right bka) Edema: No Neurological: Yes: Confusion Labs: CBC, BMP 10/09/17 07:40 10/10/17 07:40 INR, PTT INR 1.11 (0.82-1.09) 10/06/17 06:35 Problem List - Problems (1) HTN (hypertension) Code(s): I10 - ESSENTIAL (PRIMARY) HYPERTENSION (2) CKD (chronic kidney disease) Code(s): N18.9 - CHRONIC KIDNEY DISEASE, UNSPECIFIED Assessment/Plan Current Medications Generic Name Dose Route Start Last Admin Trade Name Freq PRN Reason Stop Dose Admin Acetaminophen 650 mg 10/08/17 14:51 10/08/17 22:35 Tylenol - PO 650 mg Q6H PRN Administration FEVER Atorvastatin Calcium 40 mg 10/08/17 22:00 10/09/17 22:15 Lipitor - PO 40 mg HS [facility] Administration Clopidogrel Bisulfate 75 mg 10/08/17 14:45 10/10/17 10:43 Plavix - PO 75 mg DAILY [facility] Administration Duloxetine HCl 20 mg 10/10/17 10:00 10/10/17 10:43 Cymbalta - PO 20 mg DAILY [facility] Administration Gabapentin 300 mg 10/08/17 22:00 10/10/17 14:11 Neurontin - PO 300 mg TID [facility] Administration Heparin Sodium (Porcine) 5,000 unit 10/08/17 22:00 10/10/17 14:11 Heparin - SQ 5,000 unit TID [facility] Administration Insulin Aspart 1 vial 10/08/17 16:30 10/10/17 11:43 Novolog Vial Sliding Scale - SQ Not Given ACHS [facility] Protocol Insulin Detemir 15 units 10/09/17 07:00 10/10/17 06:39 Levemir Vial SQ 15 units AM [facility] Administration Insulin Detemir 8 units 10/08/17 22:00 10/09/17 22:15 Levemir Vial SQ Not Given HS [facility] Metoprolol Tartrate 25 mg 10/08/17 22:00 10/10/17 10:43 Lopressor - PO 25 mg BID [facility] Administration Morphine Sulfate 1 mg 10/08/17 14:51 10/09/17 11:27 Morphine Sulfate IVPUSH 1 mg Q4H PRN Administration PAIN LEVEL 6-10 Impression 1. CKD 2. PVD 3. altered mental status 4. DM 5. HTN 6. hyperkalemia 7. HLD 8. CVA Plan - renal function is stable - check labs in am - psych input appreciated - can keep off of fluids - low potassium diet
--- NOTE | 2017-10-10 16:53 | PN ---
Progress Note, Physician Chief Complaint: AWAKE ALERT ON THE PHONE NO COMPLAINTS - Current Medication List Current Medications: Active Medications Acetaminophen (Tylenol -) 650 mg PO Q6H PRN PRN Reason: FEVER Last Admin: 10/08/17 22:35 Dose: 650 mg Atorvastatin Calcium (Lipitor -) 40 mg PO HS [facility] Last Admin: 10/09/17 22:15 Dose: 40 mg Clopidogrel Bisulfate (Plavix -) 75 mg PO DAILY [facility] Last Admin: 10/10/17 10:43 Dose: 75 mg Duloxetine HCl (Cymbalta -) 20 mg PO DAILY [facility] Last Admin: 10/10/17 10:43 Dose: 20 mg Gabapentin (Neurontin -) 300 mg PO TID [facility] Last Admin: 10/10/17 14:11 Dose: 300 mg Heparin Sodium (Porcine) (Heparin -) 5,000 unit SQ TID [facility] Last Admin: 10/10/17 14:11 Dose: 5,000 unit Insulin Aspart (Novolog Vial Sliding Scale -) 1 vial SQ [facility] PRN Reason: Protocol Last Admin: 10/10/17 11:43 Dose: Not Given Insulin Detemir (Levemir Vial) 15 units SQ AM [facility] Last Admin: 10/10/17 06:39 Dose: 15 units Insulin Detemir (Levemir Vial) 8 units SQ HS [facility] Last Admin: 10/09/17 22:15 Dose: Not Given Metoprolol Tartrate (Lopressor -) 25 mg PO BID [facility] Last Admin: 10/10/17 10:43 Dose: 25 mg Morphine Sulfate (Morphine Sulfate) 1 mg IVPUSH Q4H PRN PRN Reason: PAIN LEVEL 6-10 Last Admin: 10/09/17 11:27 Dose: 1 mg - Objective Vital Signs: Vital Signs Temperature 99.2 F 10/10/17 13:56 Pulse Rate 83 10/10/17 13:56 Respiratory Rate 20 10/10/17 13:56 Blood Pressure 158/83 10/10/17 13:56 O2 Sat by Pulse Oximetry (%) 95 10/10/17 09:00 Constitutional: Yes: No Distress Eyes: Yes: WNL HENT: Yes: WNL Neck: Yes: WNL Cardiovascular: Yes: WNL Respiratory: Yes: WNL Gastrointestinal: Yes: WNL Genitourinary: Yes: WNL Musculoskeletal: Yes: Other Extremities: Yes: Amputation, Deformity Edema: No Peripheral Pulses WNL: Yes Integumentary: Yes: WNL Wound/Incision: Yes: Clean/Dry Neurological: Yes: Pre-Existing Deficit ...Motor Strength: RLE (BKX) Labs: CBC, BMP 10/09/17 07:40 10/10/17 07:40 INR, PTT INR 1.11 (0.82-1.09) 10/06/17 06:35 Problem List - Problems (1) Foot pain, left Code(s): M79.672 - PAIN IN LEFT FOOT (2) HTN (hypertension) Code(s): I10 - ESSENTIAL (PRIMARY) HYPERTENSION (3) PAD (peripheral artery disease) Code(s): I73.9 - PERIPHERAL VASCULAR DISEASE, UNSPECIFIED (4) 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 Code(s): E10.610 - TYPE 1 DIABETES MELLITUS W DIABETIC NEUROPATHIC ARTHROPATHY (5) Type 1 diabetes mellitus with other skin complications Code(s): E10.628 - TYPE 1 DIABETES MELLITUS WITH OTHER SKIN COMPLICATIONS (6) CKD (chronic kidney disease) Code(s): N18.9 - CHRONIC KIDNEY DISEASE, UNSPECIFIED (7) CVA (cerebrovascular accident) Code(s): I63.9 - CEREBRAL INFARCTION, UNSPECIFIED (8) S/P BKA (below knee amputation) unilateral Code(s): Z89.519 - ACQUIRED ABSENCE OF UNSPECIFIED LEG BELOW KNEE (9) 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
[2017-10-10] MEDS: morphine SULFATE 4 MG/ML VIAL IVPUSH PRN ×2 (18:45→23:14)
[2017-10-10] MEDS: ATORVASTATIN CA 40 MG TABLET (FP) PO SCH (21:01)
[2017-10-10] MEDS: ACETAMINOPHEN 325 MG TABLET (FP) PO PRN (21:03)
--- NOTE | 2017-10-11 01:39 | PN ---
Progress Note, Physician Chief Complaint: awake yet confused History of Present Illness: diabetes mellitus diabetic neuropathy,hyperglycemia,diabetic wound will need group home goal control and close wound monitoring - Current Medication List Current Medications: Active Medications Acetaminophen (Tylenol -) 650 mg PO Q6H PRN PRN Reason: FEVER Last Admin: 10/10/17 21:03 Dose: 650 mg Atorvastatin Calcium (Lipitor -) 40 mg PO HS [facility] Last Admin: 10/10/17 21:01 Dose: 40 mg Clopidogrel Bisulfate (Plavix -) 75 mg PO DAILY [facility] Last Admin: 10/10/17 10:43 Dose: 75 mg Gabapentin (Neurontin -) 300 mg PO TID [facility] Last Admin: 10/10/17 21:02 Dose: 300 mg Heparin Sodium (Porcine) (Heparin -) 5,000 unit SQ TID [facility] Last Admin: 10/10/17 21:02 Dose: 5,000 unit Insulin Aspart (Novolog Vial Sliding Scale -) [address] [facility] PRN Reason: Protocol Last Admin: 10/10/17 21:01 Dose: 2 units Insulin Detemir (Levemir Vial) 15 units SQ AM [facility] Last Admin: 10/10/17 06:39 Dose: 15 units Insulin Detemir (Levemir Vial) 8 units SQ HS [facility] Last Admin: 10/10/17 21:01 Dose: 8 units Metoprolol Tartrate (Lopressor -) 25 mg PO BID [facility] Last Admin: 10/10/17 21:02 Dose: 25 mg Morphine Sulfate (Morphine Sulfate) 1 mg IVPUSH Q4H PRN PRN Reason: PAIN LEVEL 6-10 Last Admin: 10/10/17 23:14 Dose: 1 mg Paroxetine HCl (Paxil -) 10 mg PO DAILY [facility] - Objective Vital Signs: Vital Signs Temperature 98.9 F 10/10/17 20:00 Pulse Rate 89 10/10/17 20:00 Respiratory Rate 21 10/10/17 20:00 Blood Pressure 160/90 10/10/17 20:00 O2 Sat by Pulse Oximetry (%) 95 10/10/17 09:00 Constitutional: Yes: Calm Eyes: Yes: EOM Intact HENT: Yes: Normocephalic Neck: Yes: Trachea Midline Cardiovascular: Yes: Regular Rate and Rhythm Respiratory: Yes: CTA Bilaterally Gastrointestinal: Yes: Normal Bowel Sounds ...Rectal Exam: Yes: Deferred Musculoskeletal: Yes: Muscle Weakness Integumentary: Yes: Onychomycosis Wound/Incision: Yes: Dressing Dry and Intact Neurological: Yes: Alert, Confusion Labs: CBC, BMP 10/09/17 07:40 10/10/17 07:40 INR, PTT INR 1.11 (0.82-1.09) 10/06/17 06:35 Problem List - Problems (1) 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 Code(s): E10.610 - TYPE 1 DIABETES MELLITUS W DIABETIC NEUROPATHIC ARTHROPATHY (2) Type 1 diabetes mellitus with other skin complications Code(s): E10.628 - TYPE 1 DIABETES MELLITUS WITH OTHER SKIN COMPLICATIONS (3) Foot pain, left Code(s): M79.672 - PAIN IN LEFT FOOT (4) HTN (hypertension) Code(s): I10 - ESSENTIAL (PRIMARY) HYPERTENSION (5) PATRICIA (acute kidney injury) Code(s): N17.9 - ACUTE KIDNEY FAILURE, UNSPECIFIED (6) 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 Code(s): E10.610 - TYPE 1 DIABETES MELLITUS W DIABETIC NEUROPATHIC ARTHROPATHY Assessment/Plan Current Active Problems Asymptomatic bacteriuria (Acute) Dry gangrene (Acute) Foot pain, left (Acute) HTN (hypertension) (Acute) Intrahepatic cholestasis (Acute) Lethargy (Acute) MRSA (methicillin resistant Staphylococcus aureus) colonization (Acute) PAD (peripheral artery disease) (Acute) 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 (Acute) Type 1 diabetes mellitus with other skin complications (Acute) Abnormal Lab Results 10/10/17 07:40 Chloride 110 H Anion Gap 7 L Creatinine 1.1 H Random Glucose 138 H Calcium 8.2 L Laboratory Results - last 24 hr 10/10/17 10/10/17 10/10/17 06:37 07:40 11:42 Sodium 142 Potassium 4.6 Chloride 110 H Carbon Dioxide 25 Anion Gap 7 L BUN 17 Creatinine 1.1 H POC Glucometer 109 194 Random Glucose 138 H Calcium 8.2 L 10/10/17 20:50 Sodium Potassium Chloride Carbon Dioxide Anion Gap BUN Creatinine POC Glucometer 209 Random Glucose Calcium plan: Current Medications Generic Name Dose Route Start Last Admin Trade Name Freq PRN Reason Stop Dose Admin Acetaminophen 650 mg 10/08/17 14:51 10/10/17 21:03 Tylenol - PO 650 mg Q6H PRN Administration FEVER Atorvastatin Calcium 40 mg 10/08/17 22:00 10/10/17 21:01 Lipitor - PO 40 mg HS [facility] Administration Clopidogrel Bisulfate 75 mg 10/08/17 14:45 10/10/17 10:43 Plavix - PO 75 mg DAILY [facility] Administration Gabapentin 300 mg 10/08/17 22:00 10/10/17 21:02 Neurontin - PO 300 mg TID [facility] Administration Heparin Sodium (Porcine) 5,000 unit 10/08/17 22:00 10/10/17 21:02 Heparin - SQ 5,000 unit TID [facility] Administration Insulin Aspart 1 vial 10/08/17 16:30 10/10/17 21:01 Novolog Vial Sliding Scale - SQ 2 units ACHS [facility] Administration Protocol Insulin Detemir 15 units 10/09/17 07:00 10/10/17 06:39 Levemir Vial SQ 15 units AM [facility] Administration Insulin Detemir 8 units 10/08/17 22:00 10/10/17 21:01 Levemir Vial SQ 8 units HS [facility] Administration Metoprolol Tartrate 25 mg 10/08/17 22:00 10/10/17 21:02 Lopressor - PO 25 mg BID [facility] Administration Morphine Sulfate 1 mg 10/08/17 14:51 10/10/17 23:14 Morphine Sulfate IVPUSH 1 mg Q4H PRN Administration PAIN LEVEL 6-10 Paroxetine HCl 10 mg 10/11/17 10:00 Paxil - PO DAILY [facility]
[2017-10-11] MEDS: INSULIN (LEVEMIR) 100 UNITS/ML UNITS SQ SCH ×2 (06:42→21:40)
[2017-10-11] MEDS: GABAPENTIN 300 MG CAPSULE (FP) PO SCH ×3 (06:42→21:39)
[2017-10-11] MEDS: HEPARIN NA (PORCINE) 5,000 UNITS/ML 1ML VIAL SQ SCH ×3 (06:42→22:41)
[2017-10-11] MEDS: INSULIN SLIDING SCALE (NOVOLOG) 1 VIAL SQ SCH ×4 (06:43→21:40)
[2017-10-11] MEDS: morphine SULFATE 4 MG/ML VIAL IVPUSH PRN ×3 (09:10→21:25)
[2017-10-11] MEDS: CLOPIDOGREL BISULFATE 75 MG TABLET (FP) PO SCH (09:11)
[2017-10-11] MEDS: METOPROLOL TARTRATE 25 MG TABLET (FP) PO SCH ×2 (09:11→21:39)
[2017-10-11] MEDS: PARoxetine HCL 10 MG TABLET (FP) PO SCH (09:11)
[2017-10-11] MEDS: ACETAMINOPHEN 325 MG TABLET (FP) PO PRN ×2 (12:23→19:44)
[2017-10-11] MEDS ORDERED: morphine CARPU-JECT 4 MG/1 ML DISP.SYRIN IVPUSH ONE (12:52)
--- NOTE | 2017-10-11 12:53 | PN ---
Progress Note, Physician Chief Complaint: PAIN MEDS INCREASED PATIENT C/O WORSENING PAIN AWAKE ALERT NO FEVERS APPETITE IS GOOD IN A GOOD MOOD SPEAKING WITH ME NO DEPRESSIVE OR PSYCHOTIC FEATURES - Current Medication List Current Medications: Active Medications Acetaminophen (Tylenol -) 650 mg PO Q6H PRN PRN Reason: FEVER Last Admin: 10/11/17 12:23 Dose: 650 mg Atorvastatin Calcium (Lipitor -) 40 mg PO HS [facility] Last Admin: 10/10/17 21:01 Dose: 40 mg Clopidogrel Bisulfate (Plavix -) 75 mg PO DAILY [facility] Last Admin: 10/11/17 09:11 Dose: 75 mg Gabapentin (Neurontin -) 300 mg PO TID [facility] Last Admin: 10/11/17 06:42 Dose: 300 mg Heparin Sodium (Porcine) (Heparin -) 5,000 unit SQ TID [facility] Last Admin: 10/11/17 06:42 Dose: 5,000 unit Insulin Aspart (Novolog Vial Sliding Scale -) 1 vial SQ ACHS [facility] PRN Reason: Protocol Last Admin: 10/11/17 11:39 Dose: 2 units Insulin Detemir (Levemir Vial) 8 units SQ HS [facility] Last Admin: 10/10/17 21:01 Dose: 8 units Insulin Detemir (Levemir Vial) 15 units SQ AM [facility] Last Admin: 10/11/17 06:42 Dose: 15 units Metoprolol Tartrate (Lopressor -) 25 mg PO BID [facility] Last Admin: 10/11/17 09:11 Dose: 25 mg Morphine Sulfate (Morphine Sulfate) 1 mg IVPUSH Q4H PRN PRN Reason: PAIN LEVEL 6-10 Last Admin: 10/11/17 09:10 Dose: 1 mg Morphine Sulfate (Morphine Injection -) 4 mg IVPUSH ONCE ONE Stop: 10/11/17 12:53 Paroxetine HCl (Paxil -) 10 mg PO DAILY [facility] Last Admin: 10/11/17 09:11 Dose: 10 mg - Objective Vital Signs: Vital Signs Temperature 98.4 F 10/11/17 09:00 Pulse Rate 86 10/11/17 09:00 Respiratory Rate 20 10/11/17 09:00 Blood Pressure 154/90 10/11/17 09:00 O2 Sat by Pulse Oximetry (%) 96 10/11/17 09:00 Constitutional: Yes: Mild Distress Eyes: Yes: WNL HENT: Yes: WNL Neck: Yes: WNL Cardiovascular: Yes: WNL Respiratory: Yes: WNL Gastrointestinal: Yes: WNL Genitourinary: Yes: WNL Musculoskeletal: Yes: Muscle Weakness Extremities: Yes: Amputation Edema: No Peripheral Pulses WNL: Yes Integumentary: Yes: Other Wound/Incision: Yes: Dressing Dry and Intact Neurological: Yes: Numbness, Pre-Existing Deficit ...Motor Strength: LLE, RLE (RIGHT BKA LEFT FOOT +SKIN CHANGES VENOUS STASIS) Psychiatric: Yes: WNL Labs: CBC, BMP 10/09/17 07:40 10/10/17 07:40 INR, PTT INR 1.11 (0.82-1.09) 10/06/17 06:35 Problem List - Problems (1) Foot pain, left Code(s): M79.672 - PAIN IN LEFT FOOT (2) HTN (hypertension) Code(s): I10 - ESSENTIAL (PRIMARY) HYPERTENSION (3) PAD (peripheral artery disease) Code(s): I73.9 - PERIPHERAL VASCULAR DISEASE, UNSPECIFIED (4) 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 Code(s): E10.610 - TYPE 1 DIABETES MELLITUS W DIABETIC NEUROPATHIC ARTHROPATHY (5) Type 1 diabetes mellitus with other skin complications Code(s): E10.628 - TYPE 1 DIABETES MELLITUS WITH OTHER SKIN COMPLICATIONS (6) CKD (chronic kidney disease) Code(s): N18.9 - CHRONIC KIDNEY DISEASE, UNSPECIFIED (7) CVA (cerebrovascular accident) Code(s): I63.9 - CEREBRAL INFARCTION, UNSPECIFIED (8) S/P BKA (below knee amputation) unilateral Code(s): Z89.519 - ACQUIRED ABSENCE OF UNSPECIFIED LEG BELOW KNEE (9) 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
[2017-10-11] MEDS ORDERED: morphine SULFATE 4 MG/ML VIAL ONE (13:13)
--- NOTE | 2017-10-11 15:00 | PN ---
Progress Note (short form) - Note Progress Note: Patients mental status appears to mhave improved significantly, appears alert, oriented and ledd lethargic. Not hallucinating or delusional. Cognition much improved. Plan : continue with paxil.
--- NOTE | 2017-10-11 16:20 | PN ---
Progress Note, Physician History of Present Illness: Pt seen and examined at bedside. She is awake and alert. Her mental status is improved. - Current Medication List Current Medications: Active Medications Acetaminophen (Tylenol -) 650 mg PO Q6H PRN PRN Reason: FEVER Last Admin: 10/11/17 12:23 Dose: 650 mg Atorvastatin Calcium (Lipitor -) 40 mg PO HS [facility] Last Admin: 10/10/17 21:01 Dose: 40 mg Clopidogrel Bisulfate (Plavix -) 75 mg PO DAILY [facility] Last Admin: 10/11/17 09:11 Dose: 75 mg Gabapentin (Neurontin -) 300 mg PO TID [facility] Last Admin: 10/11/17 13:20 Dose: 300 mg Heparin Sodium (Porcine) (Heparin -) 5,000 unit SQ TID [facility] Last Admin: 10/11/17 13:19 Dose: 5,000 unit Insulin Aspart (Novolog Vial Sliding Scale -) 1 vial SQ ACHS [facility] PRN Reason: Protocol Last Admin: 10/11/17 16:14 Dose: Not Given Insulin Detemir (Levemir Vial) 8 units SQ HS [facility] Last Admin: 10/10/17 21:01 Dose: 8 units Insulin Detemir (Levemir Vial) 15 units SQ AM [facility] Last Admin: 10/11/17 06:42 Dose: 15 units Metoprolol Tartrate (Lopressor -) 25 mg PO BID [facility] Last Admin: 10/11/17 09:11 Dose: 25 mg Morphine Sulfate (Morphine Sulfate) 1 mg IVPUSH Q4H PRN PRN Reason: PAIN LEVEL 6-10 Paroxetine HCl (Paxil -) 10 mg PO DAILY [facility] Last Admin: 10/11/17 09:11 Dose: 10 mg - Objective Vital Signs: Vital Signs Temperature 99.2 F 10/11/17 14:00 Pulse Rate 76 10/11/17 14:00 Respiratory Rate 20 10/11/17 14:00 Blood Pressure 143/78 10/11/17 14:00 O2 Sat by Pulse Oximetry (%) 96 10/11/17 09:00 Constitutional: Yes: Calm Eyes: Yes: Conjunctiva Clear HENT: Yes: Atraumatic Neck: Yes: Supple Cardiovascular: Yes: S1, S2 Respiratory: Yes: CTA Bilaterally Gastrointestinal: Yes: Soft Genitourinary: Yes: WNL Musculoskeletal: Yes: Other (right bka) Edema: No Neurological: Yes: Oriented Psychiatric: Yes: Oriented Labs: CBC, BMP 10/09/17 07:40 10/10/17 07:40 INR, PTT INR 1.11 (0.82-1.09) 10/06/17 06:35 Problem List - Problems (1) HTN (hypertension) Code(s): I10 - ESSENTIAL (PRIMARY) HYPERTENSION (2) CKD (chronic kidney disease) Code(s): N18.9 - CHRONIC KIDNEY DISEASE, UNSPECIFIED Assessment/Plan Current Medications Generic Name Dose Route Start Last Admin Trade Name Freq PRN Reason Stop Dose Admin Acetaminophen 650 mg 10/08/17 14:51 10/11/17 12:23 Tylenol - PO 650 mg Q6H PRN Administration FEVER Atorvastatin Calcium 40 mg 10/08/17 22:00 10/10/17 21:01 Lipitor - PO 40 mg HS [facility] Administration Clopidogrel Bisulfate 75 mg 10/08/17 14:45 10/11/17 09:11 Plavix - PO 75 mg DAILY [facility] Administration Gabapentin 300 mg 10/08/17 22:00 10/11/17 13:20 Neurontin - PO 300 mg TID [facility] Administration Heparin Sodium (Porcine) 5,000 unit 10/08/17 22:00 10/11/17 13:19 Heparin - SQ 5,000 unit TID [facility] Administration Insulin Aspart 1 vial 10/08/17 16:30 10/11/17 16:14 Novolog Vial Sliding Scale - SQ Not Given [facility] Protocol Insulin Detemir 8 units 10/08/17 22:00 10/10/17 21:01 Levemir Vial SQ 8 units HS [facility] Administration Insulin Detemir 15 units 10/11/17 07:00 10/11/17 06:42 Levemir Vial SQ 15 units AM [facility] Administration Metoprolol Tartrate 25 mg 10/08/17 22:00 10/11/17 09:11 Lopressor - PO 25 mg BID [facility] Administration Morphine Sulfate 1 mg 10/11/17 13:04 Morphine Sulfate IVPUSH Q4H PRN PAIN LEVEL 6-10 Paroxetine HCl 10 mg 10/11/17 10:00 10/11/17 09:11 Paxil - PO 10 mg DAILY [facility] Administration Impression 1. CKD 2. PVD 3. altered mental status 4. DM 5. HTN 6. hyperkalemia 7. HLD 8. CVA Plan - check bmp - cont current meds - low potassium diet - discussed plan with pt and her family
[2017-10-11] MEDS ORDERED: INSULIN (NOVOLOG) ASPART 100 UNITS/ML 10ML VIAL ONE (21:28)
[2017-10-11] MEDS: ATORVASTATIN CA 40 MG TABLET (FP) PO SCH (21:40)
[2017-10-12] MEDS: morphine SULFATE 4 MG/ML VIAL IVPUSH PRN ×3 (02:05→15:19)
[2017-10-12] MEDS: INSULIN SLIDING SCALE (NOVOLOG) 1 VIAL SQ SCH ×4 (06:23→21:18)
[2017-10-12] MEDS: INSULIN (LEVEMIR) 100 UNITS/ML UNITS SQ SCH ×2 (06:23→21:18)
[2017-10-12] MEDS: HEPARIN NA (PORCINE) 5,000 UNITS/ML 1ML VIAL SQ SCH ×3 (06:24→21:18)
[2017-10-12] MEDS: GABAPENTIN 300 MG CAPSULE (FP) PO SCH ×3 (06:24→21:18)
--- NOTE | 2017-10-12 07:31 | DS ---
Physical Examination Vital Signs: Vital Signs Temperature 98.0 F 10/12/17 05:28 Pulse Rate 20 L 10/12/17 05:28 Respiratory Rate 20 10/12/17 05:28 Blood Pressure 145/87 10/12/17 05:28 O2 Sat by Pulse Oximetry (%) 96 10/11/17 20:09 Findings/Remarks: needs to schedule hyperbaric chamber treatment as outpatient Constitutional: Yes: Mild Distress Eyes: Yes: WNL HENT: Yes: WNL Neck: Yes: WNL Cardiovascular: Yes: WNL Respiratory: Yes: WNL Gastrointestinal: Yes: WNL Renal/: Yes: WNL Extremities: Yes: Amputation Edema: Yes Edema: LLE: Trace Peripheral Pulses WNL: Yes Integumentary: Yes: Venous Stasis Changes Wound/Incision: Yes: Dressing Dry and Intact Neurological: Yes: Pre-Existing Deficit ...Motor Strength: RLE (ba) Psychiatric: Yes: Other Labs: CBC, BMP 10/09/17 07:40 10/10/17 07:40 Discharge Summary Reason For Visit: LETHARGY,LEFT FOOT PAIN Current Active Problems Asymptomatic bacteriuria (Acute) Dry gangrene (Acute) Foot pain, left (Acute) HTN (hypertension) (Acute) Intrahepatic cholestasis (Acute) Lethargy (Acute) MRSA (methicillin resistant Staphylococcus aureus) colonization (Acute) PAD (peripheral artery disease) (Acute) 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 will need hyperbaric chamber 02 treatment for left leg and right leg stump treatment. follow up with dr nishant verde sx. - Instructions Diet, Activity, Other Instructions: PLEASE SE DR SERVANDO Davis [facility] [place] [phone] DEMETRIUS VERDE SDharmesh [address] FLOOR AT [facility] TO SCHEDULE HYPERBARIC CHAMBER ADA CONTROLLED LOW SODIUM DIET COMPLIANCE STRESSED WITH PATIENT HOME HEALTH AID WITH HOME PT Referrals: Herbert Jo [Primary Care Provider] - Servando Burton MD [Staff Physician] - Disposition: [facility]/HOME HEALTH CARE - Home Medications Comprehensive Discharge Medication List: Ambulatory Orders Aspirin [ASA -] 81 mg PO DAILY 05/04/15 Acetaminophen [Tylenol .Regular Strength -] 650 mg PO Q6H PRN #0 tablet Gabapentin [Neurontin -] 300 mg PO TID 09/08/16 Hydrochlorothiazide [Hctz -] 12.5 mg PO DAILY cap 09/08/16 Clopidogrel Bisulfate [Plavix -] 75 mg PO DAILY 09/10/17 Furosemide [Lasix -] 20 mg PO DAILY 09/10/17 Insulin (Novolog) [Novolog Flexpen -] 12 units SQ TID 09/10/17 Paroxetine HCl [Paxil -] 10 mg PO DAILY 09/10/17 Pen Needle, Diabetic [Bd Ultra-Fine Pen Needle] 1 each MC BID #100 dis.needle Atorvastatin Ca [Lipitor] 40 mg PO HS #30 tablet 09/21/17 Oxycodone HCl [Oxycontin] 1 tab PO DAILY 10/05/17 Atorvastatin Ca [Lipitor] 40 mg PO HS #30 tablet 10/12/17 Clopidogrel Bisulfate [Plavix -] 75 mg PO DAILY tablet 10/12/17 Gabapentin [Neurontin -] 300 mg PO TID #90 capsule 10/12/17 Insulin Detemir [Levemir Flextouch] 100 unit SQ ASDIR #1 insuln.pen 10/12/17 Metoprolol Tartrate [Lopressor -] 25 mg PO BID #60 tablet 10/12/17 Paroxetine HCl [Paxil -] 10 mg PO DAILY #0 tablet 10/12/17
[2017-10-12 08:46] LABS: ANION GAP 8 (8-16); BLOOD UREA NITROGEN 21 mg/dL (7-18); CALCIUM 8.2 mg/dL (8.5-10.1); CHLORIDE 110 mmol/L (98-107); CO2 24 mmol/L (21-32); CREATININE 1.4 mg/dL (0.55-1.02); GLUCOSE,RANDOM 101 mg/dL (74-106); SODIUM 142 mmol/L (136-145)
[2017-10-12] MEDS ORDERED: PT OWN MED DRAWER 7, Y5N ONE (08:59)
[2017-10-12] MEDS: CLOPIDOGREL BISULFATE 75 MG TABLET (FP) PO SCH (09:01)
[2017-10-12] MEDS: METOPROLOL TARTRATE 25 MG TABLET (FP) PO SCH ×2 (09:01→21:18)
[2017-10-12] MEDS: PARoxetine HCL 10 MG TABLET (FP) PO SCH (09:01)
--- NOTE | 2017-10-12 10:32 | PN ---
Progress Note, Physician Chief Complaint: Left foot diabetic ulcer - Current Medication List Current Medications: Active Medications Acetaminophen (Tylenol -) 650 mg PO Q6H PRN PRN Reason: FEVER Last Admin: 10/11/17 19:44 Dose: 650 mg Atorvastatin Calcium (Lipitor -) 40 mg PO HS [facility] Last Admin: 10/11/17 21:40 Dose: 40 mg Clopidogrel Bisulfate (Plavix -) 75 mg PO DAILY [facility] Last Admin: 10/12/17 09:01 Dose: 75 mg Gabapentin (Neurontin -) 300 mg PO TID [facility] Last Admin: 10/12/17 06:24 Dose: 300 mg Heparin Sodium (Porcine) (Heparin -) 5,000 unit SQ TID [facility] Last Admin: 10/12/17 06:24 Dose: 5,000 unit Insulin Aspart (Novolog Vial Sliding Scale -) 1 vial SQ ACHS [facility] PRN Reason: Protocol Last Admin: 10/12/17 06:23 Dose: Not Given Insulin Detemir (Levemir Vial) 8 units SQ HS [facility] Last Admin: 10/11/17 21:40 Dose: 8 units Insulin Detemir (Levemir Vial) 15 units SQ AM [facility] Last Admin: 10/12/17 06:23 Dose: Not Given Metoprolol Tartrate (Lopressor -) 25 mg PO BID [facility] Last Admin: 10/12/17 09:01 Dose: 25 mg Morphine Sulfate (Morphine Sulfate) 1 mg IVPUSH Q4H PRN PRN Reason: PAIN LEVEL 6-10 Last Admin: 10/12/17 08:22 Dose: 1 mg Paroxetine HCl (Paxil -) 10 mg PO DAILY [facility] Last Admin: 10/12/17 09:01 Dose: 10 mg - Objective Vital Signs: Vital Signs Temperature 98.0 F 10/12/17 05:28 Pulse Rate 20 L 10/12/17 05:28 Respiratory Rate 20 10/12/17 05:28 Blood Pressure 145/87 10/12/17 05:28 O2 Sat by Pulse Oximetry (%) 96 10/11/17 20:09 Constitutional: Yes: Well Nourished, No Distress, Calm Cardiovascular: Yes: Regular Rate and Rhythm Respiratory: Yes: Regular Gastrointestinal: Yes: Normal Bowel Sounds, Soft Musculoskeletal: Yes: WNL Extremities: Yes: WNL Edema: No Peripheral Pulses WNL: Yes Wound/Incision: Yes: Dressing Dry and Intact Neurological: Yes: Alert, Oriented Psychiatric: Yes: Alert, Oriented Labs: CBC, BMP 10/09/17 07:40 10/12/17 07:50 INR, PTT INR 1.11 (0.82-1.09) 10/06/17 06:35 Problem List - Problems (1) HTN (hypertension) Code(s): I10 - ESSENTIAL (PRIMARY) HYPERTENSION (2) MRSA (methicillin resistant Staphylococcus aureus) colonization Assessment/Plan: -colonization -ID on board -IV abx not recommended at this time Code(s): Z22.322 - CARRIER OR SUSPECTED CARRIER OF METHICILLIN RESIS STAPH (3) PAD (peripheral artery disease) Assessment/Plan: -chronic -Vascular consult Code(s): I73.9 - PERIPHERAL VASCULAR DISEASE, UNSPECIFIED (4) CKD (chronic kidney disease) Assessment/Plan: -nephrology -monitor trend Code(s): N18.9 - CHRONIC KIDNEY DISEASE, UNSPECIFIED (5) Foot pain, left Assessment/Plan: -pain management -vascular consult -ID consult Code(s): M79.672 - PAIN IN LEFT FOOT Assessment/Plan see problem list
[2017-10-12] MEDS ORDERED: INSULIN (NOVOLOG) ASPART 100 UNITS/ML 10ML VIAL ONE ×2 (11:42→16:56)
--- NOTE | 2017-10-12 12:29 | PN ---
Progress Note, Physician History of Present Illness: Pt seen and examined at bedside. She is awake and appears comfortable. She denies shortness of breath. - Current Medication List Current Medications: Active Medications Acetaminophen (Tylenol -) 650 mg PO Q6H PRN PRN Reason: FEVER Last Admin: 10/11/17 19:44 Dose: 650 mg Atorvastatin Calcium (Lipitor -) 40 mg PO HS [facility] Last Admin: 10/11/17 21:40 Dose: 40 mg Clopidogrel Bisulfate (Plavix -) 75 mg PO DAILY [facility] Last Admin: 10/12/17 09:01 Dose: 75 mg Gabapentin (Neurontin -) 300 mg PO TID [facility] Last Admin: 10/12/17 06:24 Dose: 300 mg Heparin Sodium (Porcine) (Heparin -) 5,000 unit SQ TID [facility] Last Admin: 10/12/17 06:24 Dose: 5,000 unit Insulin Aspart (Novolog Vial Sliding Scale -) 1 vial SQ ACHS [facility] PRN Reason: Protocol Last Admin: 10/12/17 11:47 Dose: 2 units Insulin Detemir (Levemir Vial) 8 units SQ HS [facility] Last Admin: 10/11/17 21:40 Dose: 8 units Insulin Detemir (Levemir Vial) 15 units SQ AM [facility] Last Admin: 10/12/17 06:23 Dose: Not Given Metoprolol Tartrate (Lopressor -) 25 mg PO BID [facility] Last Admin: 10/12/17 09:01 Dose: 25 mg Morphine Sulfate (Morphine Sulfate) 1 mg IVPUSH Q4H PRN PRN Reason: PAIN LEVEL 6-10 Last Admin: 10/12/17 08:22 Dose: 1 mg Paroxetine HCl (Paxil -) 10 mg PO DAILY [facility] Last Admin: 10/12/17 09:01 Dose: 10 mg - Objective Vital Signs: Vital Signs Temperature 98 F 10/12/17 09:00 Pulse Rate 82 10/12/17 09:00 Respiratory Rate 20 10/12/17 09:00 Blood Pressure 141/54 10/12/17 09:00 O2 Sat by Pulse Oximetry (%) 96 10/12/17 09:00 Constitutional: Yes: Calm Eyes: Yes: Conjunctiva Clear HENT: Yes: Atraumatic Neck: Yes: Supple Cardiovascular: Yes: S1, S2 Respiratory: Yes: CTA Bilaterally Gastrointestinal: Yes: Soft Genitourinary: Yes: WNL Musculoskeletal: Yes: Other (right bka) Edema: No Neurological: Yes: Oriented Psychiatric: Yes: Oriented Labs: CBC, BMP 10/09/17 07:40 10/12/17 07:50 INR, PTT INR 1.11 (0.82-1.09) 10/06/17 06:35 Problem List - Problems (1) HTN (hypertension) Code(s): I10 - ESSENTIAL (PRIMARY) HYPERTENSION (2) CKD (chronic kidney disease) Code(s): N18.9 - CHRONIC KIDNEY DISEASE, UNSPECIFIED Assessment/Plan Current Medications Generic Name Dose Route Start Last Admin Trade Name Freq PRN Reason Stop Dose Admin Acetaminophen 650 mg 10/08/17 14:51 10/11/17 19:44 Tylenol - PO 650 mg Q6H PRN Administration FEVER Atorvastatin Calcium 40 mg 10/08/17 22:00 10/11/17 21:40 Lipitor - PO 40 mg HS [facility] Administration Clopidogrel Bisulfate 75 mg 10/08/17 14:45 10/12/17 09:01 Plavix - PO 75 mg DAILY [facility] Administration Gabapentin 300 mg 10/08/17 22:00 10/12/17 06:24 Neurontin - PO 300 mg TID [facility] Administration Heparin Sodium (Porcine) 5,000 unit 10/08/17 22:00 10/12/17 06:24 Heparin - SQ 5,000 unit TID [facility] Administration Insulin Aspart 1 vial 10/08/17 16:30 10/12/17 11:47 Novolog Vial Sliding Scale - SQ 2 units ACHS [facility] Administration Protocol Insulin Detemir 8 units 10/08/17 22:00 10/11/17 21:40 Levemir Vial SQ 8 units HS [facility] Administration Insulin Detemir 15 units 10/11/17 07:00 10/12/17 06:23 Levemir Vial SQ Not Given AM [facility] Metoprolol Tartrate 25 mg 10/08/17 22:00 10/12/17 09:01 Lopressor - PO 25 mg BID [facility] Administration Morphine Sulfate 1 mg 10/11/17 13:04 10/12/17 08:22 Morphine Sulfate IVPUSH 1 mg Q4H PRN Administration PAIN LEVEL 6-10 Paroxetine HCl 10 mg 10/11/17 10:00 10/12/17 09:01 Paxil - PO 10 mg DAILY [facility] Administration Impression 1. CKD 2. PVD 3. altered mental status 4. DM 5. HTN 6. hyperkalemia 7. HLD 8. CVA Plan - renal function approaching baseline - resume home dose of lasix on discharge - low potassium diet - will need outpt follow up, discussed this with pt and her family
--- NOTE | 2017-10-12 12:35 | PN ---
Progress Note, Physician History of Present Illness: NAD, AAOx3. ISO ALP: Liver 81%, Bone 19%. - Current Medication List Current Medications: Active Medications Acetaminophen (Tylenol -) 650 mg PO Q6H PRN PRN Reason: FEVER Last Admin: 10/11/17 19:44 Dose: 650 mg Atorvastatin Calcium (Lipitor -) 40 mg PO HS [facility] Last Admin: 10/11/17 21:40 Dose: 40 mg Clopidogrel Bisulfate (Plavix -) 75 mg PO DAILY [facility] Last Admin: 10/12/17 09:01 Dose: 75 mg Gabapentin (Neurontin -) 300 mg PO TID [facility] Last Admin: 10/12/17 06:24 Dose: 300 mg Heparin Sodium (Porcine) (Heparin -) 5,000 unit SQ TID [facility] Last Admin: 10/12/17 06:24 Dose: 5,000 unit Insulin Aspart (Novolog Vial Sliding Scale -) 1 vial SQ ACHS [facility] PRN Reason: Protocol Last Admin: 10/12/17 11:47 Dose: 2 units Insulin Detemir (Levemir Vial) 8 units SQ HS [facility] Last Admin: 10/11/17 21:40 Dose: 8 units Insulin Detemir (Levemir Vial) 15 units SQ AM [facility] Last Admin: 10/12/17 06:23 Dose: Not Given Metoprolol Tartrate (Lopressor -) 25 mg PO BID [facility] Last Admin: 10/12/17 09:01 Dose: 25 mg Morphine Sulfate (Morphine Sulfate) 1 mg IVPUSH Q4H PRN PRN Reason: PAIN LEVEL 6-10 Last Admin: 10/12/17 08:22 Dose: 1 mg Paroxetine HCl (Paxil -) 10 mg PO DAILY [facility] Last Admin: 10/12/17 09:01 Dose: 10 mg - Objective Vital Signs: Vital Signs Temperature 98 F 10/12/17 09:00 Pulse Rate 82 10/12/17 09:00 Respiratory Rate 20 10/12/17 09:00 Blood Pressure 141/54 10/12/17 09:00 O2 Sat by Pulse Oximetry (%) 96 10/12/17 09:00 Constitutional: Yes: Well Nourished, No Distress, Calm Eyes: Yes: Conjunctiva Clear HENT: Yes: Atraumatic Neck: Yes: Supple Cardiovascular: No: Bradycardia, Tachycardia Respiratory: Yes: Regular Gastrointestinal: Yes: Normal Bowel Sounds, Soft. No: Distention, Melena, Rectal Bleeding, Tenderness, Vomiting Neurological: Yes: Alert, Oriented Labs: CBC, BMP 10/09/17 07:40 10/12/17 07:50 INR, PTT INR 1.11 (0.82-1.09) 10/06/17 06:35 Laboratory Last Values WBC 11.8 K/mm3 (4.0-10.0) H 10/09/17 07:40 RBC 3.56 M/mm3 (3.60-5.2) L 10/09/17 07:40 Hgb 10.4 GM/dL (10.7-15.3) L 10/09/17 07:40 Hct 31.6 % (32.4-45.2) L 10/09/17 07:40 MCV 88.6 fl (80-96) 10/09/17 07:40 MCH 29.2 pg (25.7-33.7) 10/09/17 07:40 MCHC 33.0 g/dl (32.0-36.0) 10/09/17 07:40 RDW 13.8 % (11.6-15.6) 10/09/17 07:40 Plt Count 582 K/MM3 (134-434) H 10/09/17 07:40 MPV 7.7 fl (7.5-11.1) 10/09/17 07:40 Neutrophils % 74.9 % (42.8-82.8) 10/09/17 07:40 Lymphocytes % 12.9 % (8-40) D 10/09/17 07:40 Monocytes % 8.8 % (3.8-10.2) 10/09/17 07:40 Eosinophils % 2.8 % (0-4.5) 10/09/17 07:40 Basophils % 0.6 % (0-2.0) 10/09/17 07:40 PT with INR 12.50 SEC (9.98-11.88) H 10/06/17 06:35 INR 1.11 (0.82-1.09) 10/06/17 06:35 PTT (Actin FS) 38.0 SECONDS (26.9-34.4) H D 10/05/17 14:30 VBG pH 7.31 (7.32-7.42) L 10/05/17 14:15 POC VBG pCO2 49.1 mmHg (38-52) 10/05/17 14:15 POC VBG pO2 22.9 mmHg (28-48) L 10/05/17 14:15 Mixed VBG HCO3 24.0 meq/L (19-25) 10/05/17 14:15 Sodium 142 mmol/L (136-145) 10/12/17 07:50 Potassium 5.0 mmol/L (3.5-5.1) 10/12/17 07:50 Chloride 110 mmol/L (98-107) H 10/12/17 07:50 Carbon Dioxide 24 mmol/L (21-32) 10/12/17 07:50 Anion Gap 8 (8-16) 10/12/17 07:50 Hepatic Function Panel 81 % (18-85) 10/08/17 07:00 BUN 21 mg/dL (7-18) H 10/12/17 07:50 Creatinine 1.4 mg/dL (0.55-1.02) H 10/12/17 07:50 Creat Clearance w eGFR 57.78 (>60) 10/09/17 13:50 POC Glucometer 227 UNITS (80-120) 10/12/17 11:45 Random Glucose 101 mg/dL (74-106) 10/12/17 07:50 Hemoglobin A1c % 7.6 % (4.8-6.0) H 10/07/17 08:15 Lactic Acid 1.0 mmol/L (0.0-2.0) 10/05/17 14:30 Calcium 8.2 mg/dL (8.5-10.1) L 10/12/17 07:50 Phosphorus 6.2 mg/dL (2.5-4.9) H 10/06/17 06:35 Magnesium 2.5 mg/dL (1.8-2.4) H 10/06/17 06:35 Iron 33 ug/dL (27-159) 10/07/17 08:15 TIBC 158 ug/dL (250-450) L 10/07/17 08:15 Iron Saturation 21 % (15-55) 10/07/17 08:15 Ferritin 102.550 ng/ml (6.9-282.5) 10/07/17 08:15 Total Bilirubin 0.2 mg/dL (0.2-1.0) D 10/09/17 13:50 Direct Bilirubin < 0.2 mg/dL (0.0-0.2) 10/09/17 13:50 GGT 724 U/L (5-85) H D 10/07/17 08:15 AST 28 U/L (15-37) 10/09/17 13:50 ALT 25 U/L (12-78) 10/09/17 13:50 Alkaline Phosphatase 558 U/L (45-117) H 10/09/17 13:50 Ammonia 27.11 umol/L (11-32) 10/07/17 08:15 Troponin I < 0.02 ng/ml (0.00-0.05) 10/05/17 20:00 Total Protein 5.3 g/dl (6.4-8.2) L 10/09/17 13:50 Total Protein (PEP) 5.1 g/dL (6.0-8.5) L 10/08/17 07:00 Albumin 1.4 g/dl (3.4-5.0) L 10/09/17 13:50 Albumin (PEP) 1.8 gm/dl (2.9-4.4) L 10/08/17 07:00 Globulin 3.3 g/dL (2.2-3.9) 10/08/17 07:00 Albumin/Globulin Ratio 0.5 (0.7-1.7) L 10/08/17 07:00 Beta Globulins 1.2 gm/dL (0.7-1.3) 10/08/17 07:00 Vitamin B12 721 pg/ml (180-914) 10/07/17 08:15 TSH 0.91 uIU/ml (0.358-3.74) 10/07/17 08:15 Urine Color Yellow 10/06/17 22:45 Urine Appearance Cloudy 10/06/17 22:45 Urine pH 6.0 (5.0-8.0) 10/06/17 22:45 Ur Specific [place] 1.017 (1.001-1.035) 10/06/17 22:45 Urine Protein 3+ (NEGATIVE) H 10/06/17 22:45 Urine Glucose (UA) 2+ (NEGATIVE) H 10/06/17 22:45 Urine Ketones Negative (NEGATIVE) 10/06/17 22:45 Urine Blood Negative (NEGATIVE) 10/06/17 22:45 Urine Nitrite Negative (NEGATIVE) 10/06/17 22:45 Urine Bilirubin Negative (<2.0 mg/dL) 10/06/17 22:45 Urine Urobilinogen Negative mg/dL (0.2-1.0) 10/06/17 22:45 Ur Leukocyte Esterase Negative (NEGATIVE) 10/06/17 22:45 Urine WBC (Auto) 5 /hpf (3-5) 10/06/17 22:45 Urine RBC (Auto) 12 /hpf (0-3) 10/06/17 22:45 Ur Epithelial Cells Moderate /HPF (FEW) 10/06/17 22:45 Urine Bacteria Few /hpf (NONE SEEN) 10/06/17 22:45 Hyaline Casts 1 /lpf 10/06/17 22:45 Urine Mucus Rare 10/06/17 22:45 CONNIE M-Clarence Not observed g/dL (Not Observed) 10/08/17 07:00 FRANKLIN Screen Negative (.) 10/08/17 07:00 Smooth Musc &VISCERA WASHER Intrp 4 Units (0-19) 10/08/17 07:00 RPR Titer Nonreactive (NONREACTIVE) 10/07/17 08:15 Problem List - Problems (1) Intrahepatic cholestasis Code(s): K76.89 - OTHER SPECIFIED DISEASES OF LIVER Assessment/Plan 52-year-old female with the above acute medical and surgical issues presents with abnormal liver chemistries suggestive of intrahepatic cholestasis. Isolated, liver predominant ALP since, at least 2017. AMA ALKM-1
[2017-10-12] MEDS: ACETAMINOPHEN 325 MG TABLET (FP) PO PRN (19:51)
[2017-10-12] MEDS: ATORVASTATIN CA 40 MG TABLET (FP) PO SCH (21:18)
[2017-10-13] MEDS: ACETAMINOPHEN 325 MG TABLET (FP) PO PRN (06:03)
[2017-10-13] MEDS: HEPARIN NA (PORCINE) 5,000 UNITS/ML 1ML VIAL SQ SCH (06:04)
[2017-10-13] MEDS: GABAPENTIN 300 MG CAPSULE (FP) PO SCH (06:04)
[2017-10-13] MEDS: INSULIN (LEVEMIR) 100 UNITS/ML UNITS SQ SCH (06:27)
[2017-10-13] MEDS: INSULIN SLIDING SCALE (NOVOLOG) 1 VIAL SQ SCH ×2 (06:28→11:34)
[2017-10-13 06:50] VITALS: BP 155/83; PULSE 81; TEMP 98.8
[2017-10-13] MEDS ORDERED: ACETAMINOPHEN 325 MG TABLET (FP) PO ONE (10:45)
[2017-10-13] MEDS ORDERED: PT OWN MED DRAWER 7, Y5N ONE (10:45)
[2017-10-13] MEDS ORDERED: oxyCODONE HCL 5 MG TABLET PO ONE (10:45)
[2017-10-13] MEDS: CLOPIDOGREL BISULFATE 75 MG TABLET (FP) PO SCH (10:48)
[2017-10-13] MEDS: PARoxetine HCL 10 MG TABLET (FP) PO SCH (10:48)
[2017-10-13] MEDS: METOPROLOL TARTRATE 25 MG TABLET (FP) PO SCH (10:50)
[2017-10-13] MEDS ORDERED: oxyCODONE HCL 5 MG TABLET PO PRN (11:15)
--- NOTE | 2017-10-14 10:53 | OP ---
DATE OF OPERATION: 10/08/2017 PREOPERATIVE DIAGNOSIS: Left foot gangrene. POSTOPERATIVE DIAGNOSIS: Left foot gangrene. PROCEDURE: Aortogram, left lower extremity angiogram, tibial artery angioplasty. SURGEON: Jose Sevilla DO ANESTHESIA: Fractional. BLOOD LOSS: 50 mL. DESCRIPTION OF PROCEDURE: The patient is a 52-year-old female who comes in with gangrene of her left foot toes. Decided that she would need an angiogram. She had a preoperative ultrasound performed showing that she has popliteal and tibial artery disease. Patient was consented for the procedure, understanding all risks, benefits, and alternatives, then taken to the operating room. Once in the operating room, she was laid on the operating table in supine manner. The area of the right and left groin was prepped and draped in a sterile surgical manner. We then injected 10 mL of lidocaine 1% over the right common femoral artery. We then went ahead and used our Micropuncture needle, punctured the right common femoral artery. Micropuncture wire was inserted and a traditional 5-[place]ominican sheath was inserted. A 0.035 floppy guidewire was inserted into the aorta followed by Omniflush catheter. We then shot an aortogram by hand injection showing that the aorta and aortic arteries were without any disease. We then went ahead and went up and over to the left common femoral artery. An Omniflush catheter followed. We then shot an angiogram of the left lower extremity showing that the common femoral artery, the profunda, and the SFA are patent. The popliteal artery is patent. Patient has a severe 80% to 90% stenosis of the takeoff of the anterior tibial artery, and that seems to be the main runoff into the foot. The patient has a TP trunk that is occluded, and the peroneal artery only goes down to the calf. At this point we placed a 0.035 stiff guidewire into the SFA, removed our Omniflush catheter, placed a 6 x 45 crossover sheath, then 5000 units of IV heparin was administered to the patient. We then went ahead and placed 0.035 stiff guidewire down into popliteal artery, followed by a Quick-Cross catheter, and we were able to selectively navigate into the anterior tibial artery and place our wire into the anterior tibial artery. We then exchanged for a packing machine pilot can router wire. We then went ahead and used a 2.5 x 8 Ultraverse balloon and performed angioplasty of the proximal anterior tibial artery. Completion angiogram now showed that the anterior tibial artery was patent and there was good brisk flow down into the forefoot. At this point we decided no more intervention was needed, and we brought our sheath up and over, and StarClose device was successfully deployed in the right common femoral artery. Pressure was held for 5 minutes, after which there was no more bleeding. The area was wet and dried and Dermabond was placed. The patient tolerated the procedure with no complication. Total blood loss 50 mL. JOSE SEVILLA DO [id number]
== END 2017-10-13 13:51 | disposition home health service (06) | DRG 173 ==
LOC: JER 12:45 → JERBED 16:05 → J6S 20:54
PROVIDERS: ADMIT Family Medicine; ATTEND Family Medicine
PROC: B40DYZZ Plain Radiography of Aorta and Bilateral Lower Extremity Arteries using Other Contrast (ICD-10-PCS; 2017-10-08)
PROC: B40GYZZ Plain Radiography of Left Lower Extremity Arteries using Other Contrast (ICD-10-PCS; 2017-10-08)
PROC: 047Q0ZZ Dilation of Left Anterior Tibial Artery, Open Approach (ICD-10-PCS; principal; 2017-10-08 11:00)
DX: E11.52 Type 2 diabetes mellitus with diabetic peripheral angiopathy with gangrene (principal); N17.9 Acute kidney failure, unspecified; E11.40 Type 2 diabetes mellitus with diabetic neuropathy, unspecified; I96 Gangrene, not elsewhere classified; K76.89 Other specified diseases of liver; E87.5 Hyperkalemia; E11.22 Type 2 diabetes mellitus with diabetic chronic kidney disease; R82.71 Bacteriuria; E11.21 Type 2 diabetes mellitus with diabetic nephropathy; E11.65 Type 2 diabetes mellitus with hyperglycemia; E78.5 Hyperlipidemia, unspecified; I12.9 Hypertensive chronic kidney disease with stage 1 through stage 4 chronic kidney disease, or unspecified chronic kidney disease; Z87.891 Personal history of nicotine dependence; Z79.4 Long term (current) use of insulin; D64.9 Anemia, unspecified; Z89.511 Acquired absence of right leg below knee; F41.9 Anxiety disorder, unspecified; Z86.73 Personal history of transient ischemic attack (TIA), and cerebral infarction without residual deficits; N18.9 Chronic kidney disease, unspecified; Z22.322 Carrier or suspected carrier of Methicillin resistant Staphylococcus aureus; F10.10 Alcohol abuse, uncomplicated; Z83.3 Family history of diabetes mellitus; Z80.8 Family history of malignant neoplasm of other organs or systems
CPT/HCPCS: 36415; 70450-TC; 71045-TC-FY; 76000-TC-FY; 76705-TC; 80048; 80053; 81003; 81015; 82140; 82248; 82607; 82728; 82803; 82962; 82977; 83036; 83516; 83540; 83550; 83605; 83735; 84080; 84100; 84155; 84165; 84443; 84484; 85025; 85610; 85730; 86038; 86593; 87040; 87086; 87186; 93005; 93010; 93880-TC; 94760; 97116-GP; 97161-GP; 99283-25; J1644; J7030

== ENCOUNTER 2017-10-21 14:05 | Inpatient (IN) | payer OTHER ==
--- NOTE | 2017-10-21 14:29 | PDOC ---
History of Present Illness - General Stated Complaint: WOUNDS Time Seen by Provider: 10/21/17 14:19 - History of Present Illness Initial Comments: 10/21/17 14:44 The patient is a 52 year old female with a history of HTN, HLD, DM, Gangrene to the Left Foot who presents for evaluation of worsening left lower extremity pain. The patient reports being managed for gangrene to her left foot over the past few months by Dr. Manzo. She reports that she has been sleeping on the floor over the past few days and notes severe worsening pain to her left lower extremity worse within the left foot prompting her presentation to the ED for evaluation. The patient notes that she was to have Hyperberic Oxygen therapy with an appointment later on this month, but states that pain has been getting more severe. She reports some subjective fevers, but otherwise denies SOB, chest pain, nausea, vomiting, abdominal pain, or changes with urination or bowel movements. Past History - Past Medical History Allergies/Adverse Reactions: Allergies Allergy/AdvReac Type Severity Reaction Status Date / Time No Known Allergies Allergy Verified 10/21/17 14:34 Home Medications: Ambulatory Orders Aspirin [ASA -] 81 mg PO DAILY 05/04/15 Acetaminophen [Tylenol .Regular Strength -] 650 mg PO Q6H PRN #0 tablet Hydrochlorothiazide [Hctz -] 12.5 mg PO DAILY cap 09/08/16 Clopidogrel Bisulfate [Plavix -] 75 mg PO DAILY 09/10/17 Furosemide [Lasix -] 20 mg PO DAILY 09/10/17 Insulin (Novolog) [Novolog Flexpen -] 12 units SQ TID 09/10/17 Atorvastatin Ca [Lipitor] 40 mg PO HS #30 tablet 09/21/17 Oxycodone HCl [Oxycontin] 1 tab PO DAILY 10/05/17 Metoprolol Tartrate [Lopressor -] 25 mg PO BID #60 tablet 10/12/17 Gabapentin [Neurontin -] 600 mg PO TID 10/21/17 Anemia: No Asthma: Yes Cancer: No Cardiac Disorders: No CVA: No COPD: No DVT: No Dementia: No Diabetes: Yes Dialysis: No GI Disorders: No Disorders: No HTN: Yes Hypercholesterolemia: Yes Kidney Stones: No Liver Disease: No Psychiatric Problems: No Seizures: No Thyroid Disease: No Lung CA: No - Surgical History Abdominal Surgery: No Appendectomy: No Cardiac Surgery: No Cholecystectomy: Yes (?) Gastric Stapling: No GI Surgery: No Lung Surgery: No Neurologic Surgery: No - Suicide/Smoking/Psychosocial Hx Smoking Status: Yes Smoking History: Former smoker Have you smoked in the past 12 months: No Number of Cigarettes Smoked Daily: 10 Hx Alcohol Use: No Drug/Substance Use Hx: No Substance Use Type: None Hx Substance Use Treatment: No Review of Systems - Review of Systems Comments:: 10/21/17 14:51 Constitutional: Fevers. No chills, fatigue, malaise HEENT: No Rhinorrhea, nasal congestion, visual changes Cardiovascular: No chest pain, syncope, palpitations, lightheadedness Respiratory: No Cough, SOB, Hemoptysis, Gastrointestinal: No Abdominal pain, Nausea, Vomiting, Constipation, Diarrhea, Melena Genitourinary: No Dysuria, Frequency, Urgency, Hesitancy, Hematuria, Flank pain Musculoskeletal: Pain to the left lower extremity. No Myalgia, arthralgia Skin: No rashes, itching, bruising, pallor Neurologic: No Headache, Dizziness, Numbness, Weakness, or Tingling Psychiatric: No Hallucinations. No SI or HI *Physical Exam - Physical Exam Comments: 10/21/17 15:11 General Appearance: Nourished. In Mild Apparent Distress HEENT: EOMI, SYLVIA. No Pharyngeal Erythema, Tonsillar Exudate, Tonsillar Erythema Neck: No Cervical Lymphadenopathy Respiratory/Chest: Lungs Clear, Normal Breath Sounds. No Crackles, Rales, Rhonchi, Wheezing Cardiovascular: Regular Rhythm, Regular Rate. No Murmur, Gallops, Rubs Gastrointestinal/Abdominal: Normal Bowel Sounds, Soft. 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 Wound to the right groin at the site of prior angiocath insertion with some mild purulent drainage. Gangrene to the first 4 digits of the left foot with skin sloughing and surrounding erythema and warmth tender to palpation. Normal Capillary Refill Integumentary: Normal Color, Dry, Warm Neurologic: Fully Oriented, Alert, Normal Mood/Affect, Normal Response, Heart Score/ECG Review #1 ECG reviewed & interpreted by me at: 15:14 General ECG Interpretation: Sinus Rhythm, Normal Rate, Normal Intervals, No acute ischemic changes ED Treatment Course - LABORATORY CBC & Chemistry Diagram: 10/21/17 15:46 10/21/17 15:46 Medical Decision Making - Medical Decision Making 10/21/17 15:14 The patient is a 52 year old female with a history of HTN, HLD, DM, Gangrene to the Left Foot who presents for evaluation of worsening left lower extremity pain. Differential includes but is not limited to: Rhabdomylosis, Cellulitis, Osteomylitis, Worsening Gangrene, infectious, metabolic derangement. Given the patient's physical exam and history, we will obtain a cbc, cmp, troponin, cpk, ekg, foot plain film, blood cultures, wound cultures to evaluate for possible etiologies. We will treat in the meantime with morphine, iv fluids, vanc, cefepime here in the ED. The patient will be a likely admission for further management. We discussed the case with Dr. Manzo who is aware of the patient and will come evaluate. We will continue to monitor and reassess while here in the ED. 10/21/17 17:06 CBC demonstrates an elevated wbc. cmp, troponin, cpk, are unremarkable. The patient will require admission for further management. We have paged Dr. Pimentel who covers for Dr. Jo once at 16:00 and again at 16:15 without response. We will admit to hospitalists at this time. *DC/Admit/Observation/Transfer Diagnosis at time of Disposition: Gangrene associated with diabetes mellitus Cellulitis Qualifiers: Site of cellulitis: unspecified site Qualified Code(s): L03.90 - Cellulitis, unspecified - Discharge Dispostion Condition at time of disposition: Stable Admit: Yes - Referrals - Patient Instructions - Post Discharge Activity
[2017-10-21] MEDS ORDERED: morphine CARPU-JECT 4 MG/1 ML DISP.SYRIN IVPUSH ONE (14:31)
[2017-10-21] MEDS ORDERED: SODIUM CHLORIDE 1,000 ML IV STA (14:31)
--- NOTE | 2017-10-21 15:03 | PDOC ---
Attending Attestation - HPI HPI: 10/21/17 15:10 The patient is a 52 year old female, with a significant past medical history of diabetes, hypertension, gangrene left foot, who presents to the emergency department with increasing pain to her left foot and left lower extremity. She states she is seeing Dr. Dillard in a few days but does not think she would have made it to the appointment secondary to her pain. Secondarily, she states she has been sleeping on the hard floor for about 10 days. She denies chest pain, shortness of breath, headache and dizziness. She denies fever, chills, nausea, vomit, diarrhea and constipation. She denies dysuria, frequency, urgency and hematuria. Vascular: Dr. Jose Dillard PCP: Dr. Herbert Jo - Physicial Exam PE: 10/21/17 15:10 Constitutional: (+) in apparent discomfort. Awake, alert, oriented. Head: Normocephalic. Atraumatic Eyes: PERRL. EOMI. Conjunctivae are not pale. ENT: Mucous membranes are moist and intact. Posterior pharynx without exudates or erythema. Uvula midline. Neck: Supple. Full ROM. No lymphadenopathy. Cardiovascular: Regular rate. Regular rhythm. S1, S2 regular. Distal pulses are 2+ and symmetric. Pulmonary/Chest: No evidence of respiratory distress. Clear to auscultation bilaterally No wheezing, rales or rhonchi. Abdominal: Soft and non-distended. There is no tenderness. No rebound, guarding or rigidity. No organomegaly. No palpable masses. Good bowel sounds. Back: No CVA tenderness. Musculoskeletal:(+) gangrene of 1,2,4 right toes and all web spaces. Slothing of skin to the toes, black and necrotic, Erythematous to top of the left foot. Left foot is warm. Pitting edema to mid tibia to distal. Diffuse tenderness of left foot to left mid tib/fib. pedal pulse weak 1+. Consistent with soft tissue infection. Right BKA stump intact. No cyanosis. No clubbing. Full range of motion in all extremities. Nocalf tenderness. Skin: (+) Angio site indurated hard tender with brown drainage to right groin. Skin is warm and dry. No petechiae. No purpura. Neurological: Alert and oriented to person, place, and time. Cranial nerves II -XII are grossly intact. Normal speech. Strength is grossly symmetric. No sensory deficits. Psychiatric: Good eye contact. Normal interaction, affect and behavior. - Medical Decision Making 10/21/17 15:11 Documentation prepared by Toma Calvillo, acting as certified medical technician assistant for Chloe Frey DO <Toma Calvillo - Last Filed: 10/21/17 15:10> - Resident Resident Name: Gumaro Smith - ED Attending Attestation I have performed the following: I have examined & evaluated the patient, The case was reviewed & discussed with the resident, I agree w/resident's findings & plan, Exceptions are as noted - Medical Decision Making 10/21/17 15:00 a/p: 52yo female with L foot pain -dry gangrene with sloughing of toes to L foot -cellulitis to foot -will check labs, ekg, cxr, cultures -will start abx -will discuss with Dr. Dillard - [facility] sx and with Dr. Dunlap (ID) -pt will need admission for IV abx and poss surgical debridement 10/21/17 15:02 resident has discussed the case with dr. dillard who will come to see the patient 10/21/17 15:12 I, Dr. Chloe Frey DO, attest that this document has been prepared under my direction and personally reviewed by me in its entirety. I further attest, that it accurately reflects all work, treatment, procedures and medical decision -making performed by me. <Chloe Frey - Last Filed: 10/21/17 15:12> Heart Score/ECG Review - ECG Intrepretation Comment:: 10/21/17 15:02 sinus at 89, nl axis, nl interval, q waves anterior leads, no acute st/t wave findings <Chloe Frey - Last Filed: 10/21/17 15:12>
[2017-10-21] MEDS ORDERED: morphine SULFATE 4 MG/ML VIAL ONE (15:05)
[2017-10-21 15:54] LABS: BASO % 0.7 % (0-2.0); EOS % 1.4 % (0-4.5); HEMATOCRIT 28.4 % (32.4-45.2); HEMOGLOBIN 9.6 GM/dL (10.7-15.3); LYMPH % 18.5 % (8-40); MCH 29.8 pg (25.7-33.7); MCHC 33.7 g/dl (32.0-36.0); MEAN CELL VOLUME 88.2 fl (80-96); MEAN PLT VOLUME 7.4 fl (7.5-11.1); MONO % 6.8 % (3.8-10.2); NEUT % 72.6 % (42.8-82.8); PLATELET COUNT 736 K/MM3 (134-434); RBC 3.22 M/mm3 (3.60-5.2); RDW 14.3 % (11.6-15.6)
[2017-10-21 16:14] LABS: INR 1.07 (0.82-1.09); PROTHROMBIN TIME (PATIENT) 12.1 SEC (9.7-13.0)
[2017-10-21 16:30] LABS: ALBUMIN 1.3 g/dl (3.4-5.0); ANION GAP 7 (8-16); BLOOD UREA NITROGEN 22 mg/dL (7-18); CALCIUM 7.6 mg/dL (8.5-10.1); CHLORIDE 112 mmol/L (98-107); CO2 21 mmol/L (21-32); CREATININE 1.5 mg/dL (0.55-1.02); GLUCOSE,RANDOM 156 mg/dL (74-106); POTASSIUM 4.8 mmol/L (3.5-5.1); SGOT/AST 17 U/L (15-37); SGPT/ALT 14 U/L (12-78); SODIUM 140 mmol/L (136-145)
[2017-10-21 16:34] LABS: ALK PHOS 288 U/L (45-117); BILIRUBIN,TOTAL 0.1 mg/dL (0.2-1.0); TOT PROT 5.3 g/dl (6.4-8.2)
[2017-10-21] MEDS ORDERED: VANCOMYCIN 1,000 MG in DEXTROSE 5%-WATER - 250 ML IVPB ONE (17:31)
[2017-10-21] MEDS ORDERED: CEFEPIME HCL/D5W 1 GM/50 ML BAG IVPB ONE (17:31)
--- NOTE | 2017-10-21 17:47 | HP ---
Admitting History and Physical - Primary Care Physician PCP: Lula Pimentel - Admission Chief Complaint: left foot pain History of Present Illness: This is a 52 year old female with pmhx R BKA, gangrene to left foot, HTN, HLD, DM II, CKD, PAD, presented to the ED with worsening left lower ext/foot pain. Since the patient was discharged home on 10/12/17 she states she has been sleeping on the floor of her home because she doesn't have a bed. She has an aid and today the visiting nurse came to change the dressing and incited the pain when changing and cleaning. She notes she ran out of her pain medication and has an appt to see wound care next month. She denies sob, chest pain, n/v, abdominal pain. History Source: Patient Limitations to Obtaining History: No Limitations - Past Medical History DIRECT SUPPORT WORKER: Yes: CVA Cardiovascular: Yes: HTN, Other (PAD) Pulmonary: Yes: Asthma Gastrointestinal: Yes: Pancreatitis Hepatobiliary: Yes: Other (ALCOHOLISM STOPPED ONE YEAR AGO) Renal/: Yes: Renal Inusuff, Other (PYLEONEPHRITIS RECENTLY AT [facility]) Endocrine: Yes: Diabetes Mellitus - Past Surgical History Past Surgical History: Yes: Cholecystectomy - Smoking History Smoking history: Current some day smoker Have you smoked in the past 12 months: Yes Aproximately how many cigarettes per day: 10 - Alcohol/Substance Use Hx Alcohol Use: No - Social History Usual Living Arrangement: Yes: Alone ADL: Support Services Home Medications - Allergies Allergies/Adverse Reactions: Allergies Allergy/AdvReac Type Severity Reaction Status Date / Time No Known Allergies Allergy Verified 10/21/17 14:34 - Home Medications Home Medications: Ambulatory Orders Aspirin [ASA -] 81 mg PO DAILY 05/04/15 Acetaminophen [Tylenol .Regular Strength -] 650 mg PO Q6H PRN #0 tablet Hydrochlorothiazide [Hctz -] 12.5 mg PO DAILY cap 09/08/16 Clopidogrel Bisulfate [Plavix -] 75 mg PO DAILY 09/10/17 Furosemide [Lasix -] 20 mg PO DAILY 09/10/17 Insulin (Novolog) [Novolog Flexpen -] 12 units SQ TID 09/10/17 Atorvastatin Ca [Lipitor] 40 mg PO HS #30 tablet 09/21/17 Oxycodone HCl [Oxycontin] 1 tab PO DAILY 10/05/17 Metoprolol Tartrate [Lopressor -] 25 mg PO BID #60 tablet 10/12/17 Gabapentin [Neurontin -] 600 mg PO TID 10/21/17 Review of Systems - Review of Systems Constitutional: reports: No Symptoms Eyes: reports: No Symptoms HENT: reports: No Symptoms Neck: reports: No Symptoms Cardiovascular: reports: No Symptoms Respiratory: reports: No Symptoms Gastrointestinal: reports: No Symptoms Genitourinary: reports: No Symptoms Musculoskeletal: reports: Extremity Pain (left) Integumentary: reports: Other (left foot gangrene, necrosis) Neurological: reports: No Symptoms Endocrine: reports: No Symptoms Hematology/Lymphatic: reports: No Symptoms Psychiatric: reports: No Symptoms Physical Examination Vital Signs: Vital Signs Temperature 98.6 F 10/21/17 14:34 Pulse Rate 89 10/21/17 14:34 Respiratory Rate 16 10/21/17 14:34 Blood Pressure 133/93 10/21/17 14:34 O2 Sat by Pulse Oximetry (%) 97 10/21/17 14:34 Constitutional: Yes: No Distress Eyes: Yes: Conjunctiva Clear HENT: Yes: Atraumatic Neck: Yes: Other (poor dentition) Cardiovascular: Yes: Regular Rate and Rhythm, S1, S2 Respiratory: Yes: Regular, Diminished Gastrointestinal: Yes: Normal Bowel Sounds, Soft Edema: Yes Edema: LLE: 1+ Wound/Incision: Yes: Other (L foot gangrene and necrotic toes, dry, skin sloughing, + tenderness) Neurological: Yes: Alert, Oriented, Cran Nerves II-XII Intact Labs: CBC, BMP 10/21/17 15:46 10/21/17 15:46 Imaging - Results X-ray: Report Reviewed, Image Reviewed (mild soft tissue swelling) Problem List - Problems (1) Cellulitis Code(s): L03.90 - CELLULITIS, UNSPECIFIED Qualifiers: Site of cellulitis: unspecified site Qualified Code(s): L03.90 - Cellulitis , unspecified (2) Gangrene associated with diabetes mellitus Code(s): E11.52 - TYPE 2 DIABETES W DIABETIC PERIPHERAL ANGIOPATHY W GANGRENE (3) CKD (chronic kidney disease) Code(s): N18.9 - CHRONIC KIDNEY DISEASE, UNSPECIFIED (4) Dry gangrene Code(s): I96 - GANGRENE, NOT ELSEWHERE CLASSIFIED (5) Foot pain, left Code(s): M79.672 - PAIN IN LEFT FOOT (6) HTN (hypertension) Code(s): I10 - ESSENTIAL (PRIMARY) HYPERTENSION (7) Leukocytosis Code(s): D72.829 - ELEVATED WHITE BLOOD CELL COUNT, UNSPECIFIED (8) PAD (peripheral artery disease) Code(s): I73.9 - PERIPHERAL VASCULAR DISEASE, UNSPECIFIED (9) S/P BKA (below knee amputation) unilateral Code(s): Z89.519 - ACQUIRED ABSENCE OF UNSPECIFIED LEG BELOW KNEE (10) Tobacco dependence Code(s): F17.200 - NICOTINE DEPENDENCE, UNSPECIFIED, UNCOMPLICATED Assessment/Plan Assessment: 52 year old female admitted with worsening left lower ext pain Plan: 1. Left foot dry gangrene, cellulitis - Vanco, cefepime in ED - Foot xr noted, consider MRI for osteo, defer to vascular - Vascular consulted - ID consulted 2. HTN - Hold HCTZ/lasix due to PATRICIA - Metoprolol 25mg BID 3. PATRICIA - Start gentle fluids ns 75cc/hr - Hold lasix 4. DM II - 12 units novolog TID - ISS, BGM ACHS 5. PAD - Plavix, asa, statin - Gabapentin 6. HLD - Statin 7. DVT - HEparin sq Visit type - Emergency Visit Emergency Visit: Yes Care time: The patient presented to the Emergency Department on the above date and was hospitalized for further evaluation of their emergent condition. - New Patient This patient is new to me today: Yes Date on this admission: 10/21/17 - Critical Care Critical Care patient: No Hospitalist Screening - Colonoscopy Questionnaire Colonoscopy Questionnaire: Colonoscopy Questionnaire - Patient: 50 - 75 years old and never had a screening colonoscopy: Unknown History of colon or rectal polyps, or CA: Unknown History of IBD, Crohn's disease or UC: Unknown History of abdominal radiation therapy as a child: Unknown - Relative: 1 with colon or rectal CA, or polyps at age 60 or younger: Unknown Colon or rectal CA diagnosed at age 45 or younger: Unknown Multiple relatives with colon or rectal CA: Unknown - Outcome: Screening Result: Negative Screen
[2017-10-21] MEDS ORDERED: SODIUM CHLORIDE 1,000 ML IV SCH (18:15)
[2017-10-21] MEDS ORDERED: CEFEPIME 1 GM/100 ML BAG IVPB ONE (18:38)
[2017-10-21] MEDS: SODIUM CHLORIDE 1,000 ML IV SCH (18:57)
[2017-10-21] MEDS ORDERED: VANCOMYCIN 1 GRAM (PRE-DOCKED) 1,000 MG/250 ML BAG IVPB ONE (19:36)
[2017-10-21] MEDS ORDERED: oxyCODONE HCL 5 MG TABLET ONE (19:40)
--- NOTE | 2017-10-21 19:51 | EKG ---
Test Reason : Blood Pressure : / mmHG Vent. Rate : 089 BPM Atrial Rate : 089 BPM P-R Int : 120 ms QRS Dur : 076 ms QT Int : 350 ms P-R-T Axes : 055 022 062 degrees QTc Int : 425 ms NORMAL SINUS RHYTHM NORMAL ECG WHEN COMPARED WITH ECG OF 06-OCT-2017 09:36, NO SIGNIFICANT CHANGE WAS FOUND Confirmed by CARMEN JONES MD ([id number]) on 10/21/2017 7:50:45 PM Referred By: Confirmed By:CARMEN JONES MD
[2017-10-21] MEDS: oxyCODONE HCL 5 MG TABLET PO PRN (20:05)
[2017-10-21 20:34] LABS: URINE APPEARANCE CLEAR; URINE BILIRUBIN NEGATIVE (<2.0 mg/dL); URINE COLOR LTYELLOW; URINE GLUCOSE (UA) 2+ (NEGATIVE); URINE KETONE NEGATIVE (NEGATIVE); URINE LEUK ESTERASE NEGATIVE (NEGATIVE); URINE NITRITE NEGATIVE (NEGATIVE); URINE UROBILINOGEN NEGATIVE mg/dL (0.2-1.0)
[2017-10-21 20:35] LABS: URINE PROTEIN 3+ (NEGATIVE)
[2017-10-21 20:36] LABS: EPI CELLS RARE /HPF (FEW); URINE BACTERIA RARE /hpf (NONE SEEN); URINE HYALINE CAST 4 /lpf; URINE MUCUS RARE
[2017-10-21] MEDS ORDERED: INSULIN (NOVOLOG) ASPART 100 UNITS/ML 10ML VIAL ONE (22:44)
[2017-10-21] MEDS: METOPROLOL TARTRATE 25 MG TABLET (FP) PO SCH (22:48)
[2017-10-21] MEDS: GABAPENTIN 300 MG CAPSULE (FP) PO SCH (22:48)
[2017-10-21] MEDS: ATORVASTATIN CA 40 MG TABLET (FP) PO SCH (22:48)
[2017-10-21] MEDS: INSULIN SLIDING SCALE (NOVOLOG) 1 VIAL SQ SCH (22:49)
[2017-10-22 00:32] VITALS: BMI 26.1
[2017-10-22] MEDS: oxyCODONE HCL 5 MG TABLET PO PRN ×3 (02:58→23:43)
[2017-10-22] MEDS: HEPARIN NA (PORCINE) 5,000 UNITS/ML 1ML VIAL SQ SCH ×3 (06:26→21:24)
[2017-10-22] MEDS: INSULIN SLIDING SCALE (NOVOLOG) 1 VIAL SQ SCH ×4 (06:27→23:37)
[2017-10-22] MEDS: GABAPENTIN 300 MG CAPSULE (FP) PO SCH ×3 (06:27→21:24)
[2017-10-22] MEDS: INSULIN (NOVOLOG) ASPART 100 UNITS/ML 10ML VIAL SQ SCH ×3 (06:33→18:09)
[2017-10-22 07:20] LABS: EOS % 2.7 % (0-4.5); HEMATOCRIT 29.7 % (32.4-45.2); HEMOGLOBIN 9.9 GM/dL (10.7-15.3); LYMPH % 24.8 % (8-40); MCH 29.5 pg (25.7-33.7); MCHC 33.3 g/dl (32.0-36.0); MEAN CELL VOLUME 88.6 fl (80-96); MONO % 7.6 % (3.8-10.2); NEUT % 63.9 % (42.8-82.8); PLATELET COUNT 710 K/MM3 (134-434); RBC 3.36 M/mm3 (3.60-5.2); RDW 14.2 % (11.6-15.6); WHITE BLOOD COUNT 10.8 K/mm3 (4.0-10.0)
[2017-10-22 07:53] LABS: ALBUMIN 1.2 g/dl (3.4-5.0); ANION GAP 8 (8-16); BLOOD UREA NITROGEN 16 mg/dL (7-18); CALCIUM 8.2 mg/dL (8.5-10.1); CHLORIDE 115 mmol/L (98-107); CO2 21 mmol/L (21-32); CREATININE 1.3 mg/dL (0.55-1.02); GLUCOSE,RANDOM 105 mg/dL (74-106); MAGNESIUM 2.1 mg/dL (1.8-2.4); PHOSPHOROUS 3.6 mg/dL (2.5-4.9); POTASSIUM 4.4 mmol/L (3.5-5.1); SGOT/AST 14 U/L (15-37); SGPT/ALT 12 U/L (12-78); SODIUM 144 mmol/L (136-145)
[2017-10-22 07:54] LABS: ALK PHOS 256 U/L (45-117); BILIRUBIN,TOTAL 0.2 mg/dL (0.2-1.0)
--- NOTE | 2017-10-22 08:36 | PN ---
Progress Note, Physician - Current Medication List Current Medications: Active Medications Acetaminophen (Tylenol -) 650 mg PO Q4H PRN PRN Reason: PAIN LEVEL 1-3 Aspirin (Asa -) 81 mg PO DAILY [facility] Atorvastatin Calcium (Lipitor -) 40 mg PO HS [facility] Last Admin: 10/21/17 22:48 Dose: 40 mg Clopidogrel Bisulfate (Plavix -) 75 mg PO DAILY [facility] Duloxetine HCl (Cymbalta -) 20 mg PO DAILY [facility] Gabapentin (Neurontin -) 600 mg PO TID [facility] Last Admin: 10/22/17 06:27 Dose: 600 mg Heparin Sodium (Porcine) (Heparin -) 5,000 unit SQ TID [facility] Last Admin: 10/22/17 06:26 Dose: 5,000 unit Sodium Chloride (Normal Saline -) 1,000 mls @ 75 mls/hr IV ASDIR [facility] Last Admin: 10/21/17 18:57 Dose: 75 mls/hr Insulin Aspart (Novolog Vial) 12 units SQ TIDAC [facility] Last Admin: 10/22/17 06:33 Dose: Not Given Insulin Aspart (Novolog Vial Sliding Scale -) 1 vial SQ ACHS [facility] PRN Reason: Protocol Last Admin: 10/22/17 06:27 Dose: Not Given Metoprolol Tartrate (Lopressor -) 25 mg PO BID [facility] Last Admin: 10/21/17 22:48 Dose: 25 mg Morphine Sulfate (Morphine Sulfate) 1 mg IVPUSH Q4H PRN PRN Reason: PAIN LEVEL 7-10 Oxycodone HCl (Roxicodone -) 5 mg PO Q6H PRN PRN Reason: PAIN LEVEL 4 - 6 Last Admin: 10/22/17 02:58 Dose: 5 mg Oxycodone HCl (Oxycontin -) 10 mg PO DAILY [facility] - Objective Vital Signs: Vital Signs Temperature 97.3 F L 10/22/17 08:24 Pulse Rate 87 10/22/17 08:24 Respiratory Rate 20 10/22/17 08:24 Blood Pressure 161/93 10/22/17 08:24 O2 Sat by Pulse Oximetry (%) 99 10/21/17 23:50 Cardiovascular: Yes: S1, S2 Respiratory: Yes: Regular, CTA Bilaterally Gastrointestinal: Yes: Normal Bowel Sounds, Soft Extremities: Yes: Amputation (rt), Other (left --toe with gangrene) Edema: Yes Edema: LLE: 2+ Labs: CBC, BMP 10/22/17 06:20 10/22/17 06:20 INR, PTT INR 1.07 (0.82-1.09) 10/21/17 15:46 Problem List - Problems (1) Gangrene associated with diabetes mellitus Assessment/Plan: - with cellulitis - Vanco, cefepime in ED - Foot xr noted, consider MRI for osteo, defer to vascular - Vascular consulted - ID consulted Code(s): E11.52 - TYPE 2 DIABETES W DIABETIC PERIPHERAL ANGIOPATHY W GANGRENE (2) Anemia Assessment/Plan: follow labs Code(s): D64.9 - ANEMIA, UNSPECIFIED (3) CKD (chronic kidney disease) Assessment/Plan: - Start gentle fluids ns 75cc/hr - Hold lasix Code(s): N18.9 - CHRONIC KIDNEY DISEASE, UNSPECIFIED (4) Diabetes Assessment/Plan: - 12 units novolog TID - ISS, BGM ACHS Code(s): E11.9 - TYPE 2 DIABETES MELLITUS WITHOUT COMPLICATIONS Qualifiers: Diabetes mellitus type: type 2 Diabetes mellitus complication status: with circulatory complication (5) HTN (hypertension) Assessment/Plan: - Hold HCTZ/lasix due to PATRICIA - Metoprolol 25mg BID Code(s): I10 - ESSENTIAL (PRIMARY) HYPERTENSION (6) PAD (peripheral artery disease) Assessment/Plan: - Plavix, asa, statin - Gabapentin Code(s): I73.9 - PERIPHERAL VASCULAR DISEASE, UNSPECIFIED
[2017-10-22] MEDS: CLOPIDOGREL BISULFATE 75 MG TABLET (FP) PO SCH (09:51)
[2017-10-22] MEDS: METOPROLOL TARTRATE 25 MG TABLET (FP) PO SCH ×2 (09:51→21:24)
[2017-10-22] MEDS: oxyCODONE HCL 10 MG SUSTAINED ACTING TABLET PO SCH (09:51)
[2017-10-22] MEDS: DULoxetine HCL 20 MG CAPSULE.DR (FP) PO SCH (09:51)
[2017-10-22] MEDS: ASPIRIN 81 MG CHEWABLE TABLETS PO SCH (09:51)
[2017-10-22] MEDS ORDERED: FUROSEMIDE 20 MG TABLET (FP) PO SCH (10:00)
--- NOTE | 2017-10-22 11:01 | PN ---
Progress Note (short form) - Note Progress Note: ID Consult dictated Gangrene L foot ? cellulitic component Leukocytosis R/O sepsis Peripheral vascular disease Pending c/s empiric zosyn + stat dose vancomycin
[2017-10-22] MEDS ORDERED: INSULIN (NOVOLOG) ASPART 100 UNITS/ML 10ML VIAL ONE ×2 (11:10→22:03)
[2017-10-22] MEDS ORDERED: PIPERACILLIN/TAZOBACTAM 3.375 GM VIAL IVPB ONE ×2 (11:11→18:17)
[2017-10-22] MEDS ORDERED: DEXTROSE 5%-WATER - 50 ML IVPB ONE ×2 (11:11→18:17)
[2017-10-22] MEDS: PIPERACILLIN/TAZOB 3.375 GM 3.375 GM in DEXTROSE 5%-WATER - 50 ML IVPB SCH ×2 (11:14→18:22)
[2017-10-22] MEDS ORDERED: VANCOMYCIN 1 GM PREMIX - 1 GM/200 ML BAG IVPB ONE (11:30)
--- NOTE | 2017-10-22 14:29 | CONS ---
DATE OF CONSULTATION: DATE OF DICTATION: 10/22/2017 The patient is a 52-year-old female evaluated for left foot infection. The patient is known to our service from previous hospital admissions. She has severe peripheral vascular disease. She is status post right [id number] amputation 1 year ago. She had been hospitalized last month with gangrene of the left foot. At that time an angioplasty was performed, and arrangements were being made for her to receive wound care and hypercarbic oxygen treatment. It is unclear why she did not follow up. She reports being at home for the past 10 days after being discharged from a [place] [facility] facility status post stroke. She states that she has been sleeping on the floor and has complaints of generalized body pain and worsening left foot pain. She denies any fever or chills. Upon evaluation, she was found to have an elevated white blood cell count. She had been advised a left vkkmy-jez-lzhy amputation in the past. She denies any purulent drainage from the left foot. Previous urine cultures have grown resistant organisms including ESBL and MRSA. PAST MEDICAL HISTORY: Positive for stroke, hypertension, diabetes, hyperlipidemia, chronic kidney disease, peripheral vascular disease, gangrene of the left foot. PAST SURGICAL HISTORY: Status post right lbevs-ewg-umha amputation. ALLERGIES: No known allergies. MEDICATIONS: Include Tylenol, heparin, Neurontin, Cymbalta, Lopressor, Lipitor, NovoLog, aspirin, oxycodone, Plavix. SOCIAL HISTORY: Patient states that she had been living at home with a family member, was sleeping on the floor because she did not have a bed. History of active tobacco use. REVIEW OF SYSTEMS: Neurologic: Positive for recent stroke. Cardiac: Negative chest pain or palpitations. Respiratory: Negative cough or sputum production. Gastrointestinal: Negative vomiting or diarrhea. Genitourinary: Negative for urinary tract infection. LABORATORY DATA: White count at admission 13.0, presently 10.8. Hematocrit 29.7, platelets 710. BUN 16, creatinine 1.3. Urinalysis 2 white cells, cultures pending. PHYSICAL EXAMINATION: General: She is chronically ill appearing, in no acute distress. Vital Signs: Temperature is 97.3, blood pressure 161/93, pulse 87, regular. Respirations 20 per minute. HEENT: Sclerae are anicteric. Cardiovascular: Heart sounds S1, S2. Lungs: Clear. Abdomen: Soft. No tenderness elicited. Extremities: Examination of the right lower extremity status post right [id number]-[id number] amputation. Stump site well healed. Examination of the left foot: There is dry gangrene present on the right first, third, and fourth toes. The dorsum of the foot is swollen and hyperemic, tender to touch. No crepitus or fluctuance. IMPRESSION: 1. Gangrene of the left foot. 2. Possible cellulitic component versus tissue ischemia, left foot 3. Leukocytosis, rule out sepsis. 4. Peripheral vascular disease. Await cultures. Empiric antibiotic coverage with Zosyn plus stat dose vancomycin. Surgical evaluation. Will follow. Thank you for the kind referral. DELMI BLUM M.D. [id number]
[2017-10-22] MEDS: morphine SULFATE 4 MG/ML VIAL IVPUSH PRN (21:24)
[2017-10-22] MEDS: ATORVASTATIN CA 40 MG TABLET (FP) PO SCH (21:24)
[2017-10-22] MEDS: ACETAMINOPHEN 325 MG TABLET (FP) PO PRN (23:43)
[2017-10-23] MEDS ORDERED: PIPERACILLIN/TAZOBACTAM 3.375 GM VIAL IVPB ONE ×3 (02:36→17:34)
[2017-10-23] MEDS ORDERED: DEXTROSE 5%-WATER - 50 ML IVPB ONE ×3 (02:36→17:34)
[2017-10-23] MEDS: SODIUM CHLORIDE 1,000 ML IV SCH ×3 (02:50→18:53)
[2017-10-23] MEDS: PIPERACILLIN/TAZOB 3.375 GM 3.375 GM in DEXTROSE 5%-WATER - 50 ML IVPB SCH ×3 (02:50→17:42)
[2017-10-23] MEDS: GABAPENTIN 300 MG CAPSULE (FP) PO SCH ×3 (05:55→22:27)
[2017-10-23] MEDS: HEPARIN NA (PORCINE) 5,000 UNITS/ML 1ML VIAL SQ SCH ×3 (05:55→22:27)
[2017-10-23] MEDS: ACETAMINOPHEN 325 MG TABLET (FP) PO PRN (05:55)
[2017-10-23] MEDS: INSULIN SLIDING SCALE (NOVOLOG) 1 VIAL SQ SCH ×4 (05:59→22:27)
[2017-10-23] MEDS: INSULIN (NOVOLOG) ASPART 100 UNITS/ML 10ML VIAL SQ SCH ×3 (05:59→16:02)
[2017-10-23] MEDS: oxyCODONE HCL 5 MG TABLET PO PRN ×2 (07:46→15:55)
--- NOTE | 2017-10-23 08:02 | PN ---
Progress Note, Physician - Current Medication List Current Medications: Active Medications Acetaminophen (Tylenol -) 650 mg PO Q4H PRN PRN Reason: PAIN LEVEL 1-3 Last Admin: 10/23/17 05:55 Dose: 650 mg Aspirin (Asa -) 81 mg PO DAILY [facility] Last Admin: 10/22/17 09:51 Dose: 81 mg Atorvastatin Calcium (Lipitor -) 40 mg PO HS [facility] Last Admin: 10/22/17 21:24 Dose: 40 mg Clopidogrel Bisulfate (Plavix -) 75 mg PO DAILY [facility] Last Admin: 10/22/17 09:51 Dose: 75 mg Duloxetine HCl (Cymbalta -) 20 mg PO DAILY [facility] Last Admin: 10/22/17 09:51 Dose: 20 mg Gabapentin (Neurontin -) 600 mg PO TID [facility] Last Admin: 10/23/17 05:55 Dose: 600 mg Heparin Sodium (Porcine) (Heparin -) 5,000 unit SQ TID [facility] Last Admin: 10/23/17 05:55 Dose: 5,000 unit Sodium Chloride (Normal Saline -) 1,000 mls @ 75 mls/hr IV ASDIR [facility] Last Admin: 10/23/17 02:50 Dose: 75 mls/hr Piperacillin Sod/Tazobactam (Sod 3.375 gm/ Dextrose) 50 mls @ 100 mls/hr IVPB Q8H-IV [facility] PRN Reason: Protocol Last Admin: 10/23/17 02:50 Dose: 100 mls/hr Insulin Aspart (Novolog Vial) 12 units SQ TIDAC [facility] Last Admin: 10/23/17 05:59 Dose: Not Given Insulin Aspart (Novolog Vial Sliding Scale -) 1 vial SQ ACHS [facility] PRN Reason: Protocol Last Admin: 10/23/17 05:59 Dose: Not Given Metoprolol Tartrate (Lopressor -) 25 mg PO BID [facility] Last Admin: 10/22/17 21:24 Dose: 25 mg Morphine Sulfate (Morphine Sulfate) 1 mg IVPUSH Q4H PRN PRN Reason: PAIN LEVEL 7-10 Last Admin: 10/22/17 21:24 Dose: 1 mg Oxycodone HCl (Roxicodone -) 5 mg PO Q6H PRN PRN Reason: PAIN LEVEL 4 - 6 Last Admin: 10/23/17 07:46 Dose: 5 mg Oxycodone HCl (Oxycontin -) 10 mg PO DAILY [facility] Last Admin: 10/22/17 09:51 Dose: 10 mg - Objective Vital Signs: Vital Signs Temperature 98.9 F 10/23/17 06:56 Pulse Rate 74 10/23/17 06:56 Respiratory Rate 18 10/23/17 06:56 Blood Pressure 145/85 10/23/17 06:56 O2 Sat by Pulse Oximetry (%) 99 10/22/17 21:00 Cardiovascular: Yes: S1, S2 Respiratory: Yes: Regular, CTA Bilaterally Gastrointestinal: Yes: Normal Bowel Sounds, Soft Extremities: Yes: Amputation, Other (gangrene toes) Labs: CBC, BMP 10/22/17 06:20 10/22/17 06:20 INR, PTT INR 1.07 (0.82-1.09) 10/21/17 15:46 Problem List - Problems (1) Gangrene associated with diabetes mellitus Assessment/Plan: - with cellulitis - Vanco, cefepime in ED - Foot xr noted, consider MRI for osteo, defer to vascular - Vascular consulted - ID consulted Code(s): E11.52 - TYPE 2 DIABETES W DIABETIC PERIPHERAL ANGIOPATHY W GANGRENE (2) Anemia Assessment/Plan: follow labs Code(s): D64.9 - ANEMIA, UNSPECIFIED (3) CKD (chronic kidney disease) Assessment/Plan: - Start gentle fluids ns 75cc/hr - Hold lasix Code(s): N18.9 - CHRONIC KIDNEY DISEASE, UNSPECIFIED (4) Diabetes Assessment/Plan: - 12 units novolog TID - ISS, BGM ACHS Code(s): E11.9 - TYPE 2 DIABETES MELLITUS WITHOUT COMPLICATIONS Qualifiers: Diabetes mellitus type: type 2 Diabetes mellitus complication status: with circulatory complication (5) HTN (hypertension) Assessment/Plan: - Hold HCTZ/lasix due to PATRICIA - Metoprolol 25mg BID Code(s): I10 - ESSENTIAL (PRIMARY) HYPERTENSION (6) PAD (peripheral artery disease) Assessment/Plan: - Plavix, asa, statin - Gabapentin Code(s): I73.9 - PERIPHERAL VASCULAR DISEASE, UNSPECIFIED
[2017-10-23] MEDS: oxyCODONE HCL 10 MG SUSTAINED ACTING TABLET PO SCH (10:26)
[2017-10-23] MEDS: CLOPIDOGREL BISULFATE 75 MG TABLET (FP) PO SCH (10:27)
[2017-10-23] MEDS: ASPIRIN 81 MG CHEWABLE TABLETS PO SCH (10:27)
[2017-10-23] MEDS: DULoxetine HCL 20 MG CAPSULE.DR (FP) PO SCH (10:27)
[2017-10-23] MEDS: METOPROLOL TARTRATE 25 MG TABLET (FP) PO SCH ×2 (10:27→22:27)
--- NOTE | 2017-10-23 15:09 | PN ---
Progress Note, Physician History of Present Illness: C/O foot pain No c/o fever/ chills Afebrile WBC improved - Current Medication List Current Medications: Active Medications Acetaminophen (Tylenol -) 650 mg PO Q4H PRN PRN Reason: PAIN LEVEL 1-3 Last Admin: 10/23/17 05:55 Dose: 650 mg Aspirin (Asa -) 81 mg PO DAILY [facility] Last Admin: 10/23/17 10:27 Dose: 81 mg Atorvastatin Calcium (Lipitor -) 40 mg PO HS [facility] Last Admin: 10/22/17 21:24 Dose: 40 mg Clopidogrel Bisulfate (Plavix -) 75 mg PO DAILY [facility] Last Admin: 10/23/17 10:27 Dose: 75 mg Duloxetine HCl (Cymbalta -) 20 mg PO DAILY [facility] Last Admin: 10/23/17 10:27 Dose: 20 mg Gabapentin (Neurontin -) 600 mg PO TID [facility] Last Admin: 10/23/17 05:55 Dose: 600 mg Heparin Sodium (Porcine) (Heparin -) 5,000 unit SQ TID [facility] Last Admin: 10/23/17 05:55 Dose: 5,000 unit Sodium Chloride (Normal Saline -) 1,000 mls @ 75 mls/hr IV ASDIR [facility] Last Admin: 10/23/17 02:50 Dose: 75 mls/hr Piperacillin Sod/Tazobactam (Sod 3.375 gm/ Dextrose) 50 mls @ 100 mls/hr IVPB Q8H-IV [facility] PRN Reason: Protocol Last Admin: 10/23/17 10:23 Dose: 100 mls/hr Insulin Aspart (Novolog Vial) 12 units SQ TIDAC [facility] Last Admin: 10/23/17 12:18 Dose: 12 units Insulin Aspart (Novolog Vial Sliding Scale -) 1 vial SQ ACHS [facility] PRN Reason: Protocol Last Admin: 10/23/17 12:19 Dose: 2 units Metoprolol Tartrate (Lopressor -) 25 mg PO BID [facility] Last Admin: 10/23/17 10:27 Dose: 25 mg Morphine Sulfate (Morphine Sulfate) 1 mg IVPUSH Q4H PRN PRN Reason: PAIN LEVEL 7-10 Last Admin: 10/22/17 21:24 Dose: 1 mg Oxycodone HCl (Roxicodone -) 5 mg PO Q6H PRN PRN Reason: PAIN LEVEL 4 - 6 Last Admin: 10/23/17 07:46 Dose: 5 mg Oxycodone HCl (Oxycontin -) 10 mg PO DAILY [facility] Last Admin: 10/23/17 10:26 Dose: 10 mg - Objective Vital Signs: Vital Signs Temperature 97.7 F 10/23/17 14:55 Pulse Rate 72 10/23/17 14:55 Respiratory Rate 18 10/23/17 09:00 Blood Pressure 140/70 10/23/17 14:55 O2 Sat by Pulse Oximetry (%) 99 10/22/17 21:00 Constitutional: Yes: No Distress Cardiovascular: Yes: Regular Rate and Rhythm, S1, S2 Respiratory: Yes: CTA Bilaterally Gastrointestinal: Yes: Normal Bowel Sounds, Soft. No: Tenderness Extremities: Yes: Other (+ dry gangrene L 1/3/4 toes. Decreased swelling/ erythema L foot) Labs: CBC, BMP 10/22/17 06:20 10/22/17 06:20 INR, PTT INR 1.07 (0.82-1.09) 10/21/17 15:46 Assessment/Plan Gangrene/ cellulitis L foot Peripheral vascular disease Leukocytosis- improved Continue zosyn
--- NOTE | 2017-10-23 16:55 | PN ---
Progress Note (short form) - Note Progress Note: Vascular surgery S/P angioplasty of ant tibial artery two weeks ago. Gangrene of right foot. Recent fall at home and pt came into hospital. Pt wants to get a special bed at home so she can go home. Does not wish to go to rehab. cont present care. Pt needs HBO as outpt. Jose Manzo DO
[2017-10-23] MEDS ORDERED: INSULIN (NOVOLOG) ASPART 100 UNITS/ML 10ML VIAL ONE (21:28)
[2017-10-23] MEDS: ATORVASTATIN CA 40 MG TABLET (FP) PO SCH (22:27)
[2017-10-23] MEDS: morphine SULFATE 4 MG/ML VIAL IVPUSH PRN (22:44)
[2017-10-24] MEDS ORDERED: PIPERACILLIN/TAZOBACTAM 3.375 GM VIAL IVPB ONE ×3 (02:24→16:38)
[2017-10-24] MEDS ORDERED: DEXTROSE 5%-WATER - 50 ML IVPB ONE ×3 (02:24→16:39)
[2017-10-24] MEDS: PIPERACILLIN/TAZOB 3.375 GM 3.375 GM in DEXTROSE 5%-WATER - 50 ML IVPB SCH ×3 (02:29→17:14)
[2017-10-24] MEDS: ACETAMINOPHEN 325 MG TABLET (FP) PO PRN ×2 (03:21→16:45)
[2017-10-24] MEDS: oxyCODONE HCL 5 MG TABLET PO PRN ×2 (03:21→16:46)
[2017-10-24] MEDS: GABAPENTIN 300 MG CAPSULE (FP) PO SCH ×3 (06:41→22:43)
[2017-10-24] MEDS: INSULIN SLIDING SCALE (NOVOLOG) 1 VIAL SQ SCH ×4 (06:41→22:44)
[2017-10-24] MEDS: HEPARIN NA (PORCINE) 5,000 UNITS/ML 1ML VIAL SQ SCH ×3 (06:41→22:43)
[2017-10-24] MEDS ORDERED: INSULIN (NOVOLOG) ASPART 100 UNITS/ML 10ML VIAL ONE ×3 (06:56→21:34)
[2017-10-24] MEDS ORDERED: PT OWN MED DRAWER 7, Y5N ONE (09:05)
[2017-10-24] MEDS: ASPIRIN 81 MG CHEWABLE TABLETS PO SCH (09:11)
[2017-10-24] MEDS: CLOPIDOGREL BISULFATE 75 MG TABLET (FP) PO SCH (09:11)
[2017-10-24] MEDS: METOPROLOL TARTRATE 25 MG TABLET (FP) PO SCH ×2 (09:11→22:44)
[2017-10-24] MEDS: DULoxetine HCL 20 MG CAPSULE.DR (FP) PO SCH (09:11)
[2017-10-24] MEDS: oxyCODONE HCL 10 MG SUSTAINED ACTING TABLET PO SCH (09:11)
[2017-10-24] MEDS: SODIUM CHLORIDE 1,000 ML IV SCH ×2 (09:14→22:43)
[2017-10-24] MEDS: morphine SULFATE 4 MG/ML VIAL IVPUSH PRN (11:43)
--- NOTE | 2017-10-24 12:01 | PN ---
Progress Note, Physician - Current Medication List Current Medications: Active Medications Acetaminophen (Tylenol -) 650 mg PO Q4H PRN PRN Reason: PAIN LEVEL 1-3 Last Admin: 10/24/17 03:21 Dose: 650 mg Aspirin (Asa -) 81 mg PO DAILY [facility] Last Admin: 10/24/17 09:11 Dose: 81 mg Atorvastatin Calcium (Lipitor -) 40 mg PO HS [facility] Last Admin: 10/23/17 22:27 Dose: 40 mg Clopidogrel Bisulfate (Plavix -) 75 mg PO DAILY [facility] Last Admin: 10/24/17 09:11 Dose: 75 mg Duloxetine HCl (Cymbalta -) 20 mg PO DAILY [facility] Last Admin: 10/24/17 09:11 Dose: 20 mg Gabapentin (Neurontin -) 600 mg PO TID [facility] Last Admin: 10/24/17 06:41 Dose: 600 mg Heparin Sodium (Porcine) (Heparin -) 5,000 unit SQ TID [facility] Last Admin: 10/24/17 06:41 Dose: 5,000 unit Sodium Chloride (Normal Saline -) 1,000 mls @ 75 mls/hr IV ASDIR [facility] Last Admin: 10/24/17 09:14 Dose: 75 mls/hr Piperacillin Sod/Tazobactam (Sod 3.375 gm/ Dextrose) 50 mls @ 100 mls/hr IVPB Q8H-IV [facility] PRN Reason: Protocol Last Admin: 10/24/17 09:11 Dose: 100 mls/hr Insulin Aspart (Novolog Vial Sliding Scale -) 1 vial SQ ACHS [facility] PRN Reason: Protocol Last Admin: 10/24/17 11:44 Dose: 2 units Metoprolol Tartrate (Lopressor -) 25 mg PO BID [facility] Last Admin: 10/24/17 09:11 Dose: 25 mg Morphine Sulfate (Morphine Sulfate) 1 mg IVPUSH Q4H PRN PRN Reason: PAIN LEVEL 7-10 Last Admin: 10/24/17 11:43 Dose: 1 mg Oxycodone HCl (Roxicodone -) 5 mg PO Q6H PRN PRN Reason: PAIN LEVEL 4 - 6 Last Admin: 10/24/17 03:21 Dose: 5 mg Oxycodone HCl (Oxycontin -) 10 mg PO DAILY [facility] Last Admin: 10/24/17 09:11 Dose: 10 mg - Objective Vital Signs: Vital Signs Temperature 98.5 F 10/24/17 08:00 Pulse Rate 89 10/24/17 08:00 Respiratory Rate 18 10/24/17 08:00 Blood Pressure 168/98 10/24/17 08:00 O2 Sat by Pulse Oximetry (%) 98 10/24/17 09:00 Cardiovascular: Yes: S1, S2 Respiratory: Yes: Regular, CTA Bilaterally Gastrointestinal: Yes: Normal Bowel Sounds, Soft Labs: CBC, BMP 10/22/17 06:20 10/22/17 06:20 INR, PTT INR 1.07 (0.82-1.09) 10/21/17 15:46 Problem List - Problems (1) Gangrene associated with diabetes mellitus Assessment/Plan: - with cellulitis - Vanco, cefepime in ED - Foot xr noted, consider MRI for osteo, defer to vascular - Vascular consulted - ID consulted Code(s): E11.52 - TYPE 2 DIABETES W DIABETIC PERIPHERAL ANGIOPATHY W GANGRENE (2) Anemia Assessment/Plan: follow labs Code(s): D64.9 - ANEMIA, UNSPECIFIED (3) CKD (chronic kidney disease) Assessment/Plan: - Start gentle fluids ns 75cc/hr - Hold lasix Code(s): N18.9 - CHRONIC KIDNEY DISEASE, UNSPECIFIED (4) Diabetes Assessment/Plan: - 12 units novolog TID - ISS, BGM ACHS Code(s): E11.9 - TYPE 2 DIABETES MELLITUS WITHOUT COMPLICATIONS Qualifiers: Diabetes mellitus type: type 2 Diabetes mellitus complication status: with circulatory complication (5) HTN (hypertension) Assessment/Plan: - Hold HCTZ/lasix due to PATRICIA - Metoprolol 25mg BID Code(s): I10 - ESSENTIAL (PRIMARY) HYPERTENSION (6) PAD (peripheral artery disease) Assessment/Plan: - Plavix, asa, statin - Gabapentin Code(s): I73.9 - PERIPHERAL VASCULAR DISEASE, UNSPECIFIED
[2017-10-24] MEDS: ATORVASTATIN CA 40 MG TABLET (FP) PO SCH (22:44)
[2017-10-25] MEDS: ACETAMINOPHEN 325 MG TABLET (FP) PO PRN ×3 (02:32→22:02)
[2017-10-25] MEDS: oxyCODONE HCL 5 MG TABLET PO PRN ×2 (02:33→22:03)
[2017-10-25] MEDS ORDERED: DEXTROSE 5%-WATER - 50 ML IVPB ONE ×3 (02:35→16:29)
[2017-10-25] MEDS ORDERED: PIPERACILLIN/TAZOBACTAM 3.375 GM VIAL IVPB ONE ×3 (02:35→16:29)
[2017-10-25] MEDS: PIPERACILLIN/TAZOB 3.375 GM 3.375 GM in DEXTROSE 5%-WATER - 50 ML IVPB SCH ×3 (02:43→17:09)
[2017-10-25] MEDS: GABAPENTIN 300 MG CAPSULE (FP) PO SCH ×3 (06:41→22:03)
[2017-10-25] MEDS: HEPARIN NA (PORCINE) 5,000 UNITS/ML 1ML VIAL SQ SCH ×3 (06:41→22:03)
[2017-10-25] MEDS: INSULIN SLIDING SCALE (NOVOLOG) 1 VIAL SQ SCH ×4 (06:44→22:03)
[2017-10-25] MEDS ORDERED: PT OWN MED DRAWER 7, Y5N ONE (09:11)
[2017-10-25] MEDS: DULoxetine HCL 20 MG CAPSULE.DR (FP) PO SCH (09:20)
[2017-10-25] MEDS: oxyCODONE HCL 10 MG SUSTAINED ACTING TABLET PO SCH (09:20)
[2017-10-25] MEDS: CLOPIDOGREL BISULFATE 75 MG TABLET (FP) PO SCH (09:20)
[2017-10-25] MEDS: METOPROLOL TARTRATE 25 MG TABLET (FP) PO SCH ×2 (09:20→22:02)
[2017-10-25] MEDS: ASPIRIN 81 MG CHEWABLE TABLETS PO SCH (09:20)
[2017-10-25] MEDS ORDERED: INSULIN (NOVOLOG) ASPART 100 UNITS/ML 10ML VIAL ONE ×2 (11:28→21:58)
--- NOTE | 2017-10-25 12:03 | PN ---
Progress Note, Physician - Current Medication List Current Medications: Active Medications Acetaminophen (Tylenol -) 650 mg PO Q4H PRN PRN Reason: PAIN LEVEL 1-3 Last Admin: 10/25/17 06:41 Dose: 650 mg Aspirin (Asa -) 81 mg PO DAILY [facility] Last Admin: 10/25/17 09:20 Dose: 81 mg Atorvastatin Calcium (Lipitor -) 40 mg PO HS [facility] Last Admin: 10/24/17 22:44 Dose: 40 mg Clopidogrel Bisulfate (Plavix -) 75 mg PO DAILY [facility] Last Admin: 10/25/17 09:20 Dose: 75 mg Duloxetine HCl (Cymbalta -) 20 mg PO DAILY [facility] Last Admin: 10/25/17 09:20 Dose: 20 mg Gabapentin (Neurontin -) 600 mg PO TID [facility] Last Admin: 10/25/17 06:41 Dose: 600 mg Heparin Sodium (Porcine) (Heparin -) 5,000 unit SQ TID [facility] Last Admin: 10/25/17 06:41 Dose: 5,000 unit Sodium Chloride (Normal Saline -) 1,000 mls @ 75 mls/hr IV ASDIR [facility] Last Admin: 10/24/17 22:43 Dose: 75 mls/hr Piperacillin Sod/Tazobactam (Sod 3.375 gm/ Dextrose) 50 mls @ 100 mls/hr IVPB Q8H-IV [facility] PRN Reason: Protocol Last Admin: 10/25/17 09:19 Dose: 100 mls/hr Insulin Aspart (Novolog Vial Sliding Scale -) 1 vial SQ ACHS [facility] PRN Reason: Protocol Last Admin: 10/25/17 11:42 Dose: Not Given Metoprolol Tartrate (Lopressor -) 25 mg PO BID [facility] Last Admin: 10/25/17 09:20 Dose: 25 mg Oxycodone HCl (Oxycontin -) 10 mg PO DAILY [facility] Last Admin: 10/25/17 09:20 Dose: 10 mg Oxycodone HCl (Roxicodone -) 5 mg PO Q6H PRN PRN Reason: PAIN LEVEL 4 - 6 Last Admin: 10/25/17 02:33 Dose: 5 mg - Objective Vital Signs: Vital Signs Temperature 98.4 F 10/25/17 08:00 Pulse Rate 78 10/25/17 08:00 Respiratory Rate 18 10/25/17 08:00 Blood Pressure 162/98 10/25/17 08:00 O2 Sat by Pulse Oximetry (%) 97 10/25/17 08:33 Cardiovascular: Yes: S1, S2 Respiratory: Yes: Regular, CTA Bilaterally Gastrointestinal: Yes: Normal Bowel Sounds, Soft Extremities: Yes: Amputation Wound/Incision: Yes: Open to air. No: Draining Labs: CBC, BMP 10/22/17 06:20 10/22/17 06:20 INR, PTT INR 1.07 (0.82-1.09) 10/21/17 15:46 Problem List - Problems (1) Gangrene associated with diabetes mellitus Assessment/Plan: - with cellulitis - Vanco, cefepime in ED - Foot xr noted, consider MRI for osteo, defer to vascular - Vascular consulted - ID consulted Code(s): E11.52 - TYPE 2 DIABETES W DIABETIC PERIPHERAL ANGIOPATHY W GANGRENE (2) Anemia Assessment/Plan: follow labs Code(s): D64.9 - ANEMIA, UNSPECIFIED (3) CKD (chronic kidney disease) Assessment/Plan: - Start gentle fluids ns 75cc/hr - Hold lasix Code(s): N18.9 - CHRONIC KIDNEY DISEASE, UNSPECIFIED (4) Diabetes Assessment/Plan: - 12 units novolog TID - ISS, BGM ACHS Code(s): E11.9 - TYPE 2 DIABETES MELLITUS WITHOUT COMPLICATIONS Qualifiers: Diabetes mellitus type: type 2 Diabetes mellitus complication status: with circulatory complication (5) HTN (hypertension) Assessment/Plan: - Hold HCTZ/lasix due to PATRICIA - Metoprolol 25mg BID Code(s): I10 - ESSENTIAL (PRIMARY) HYPERTENSION (6) PAD (peripheral artery disease) Assessment/Plan: - Plavix, asa, statin - Gabapentin Code(s): I73.9 - PERIPHERAL VASCULAR DISEASE, UNSPECIFIED
[2017-10-25] MEDS: SODIUM CHLORIDE 1,000 ML IV SCH (13:50)
[2017-10-25] MEDS: ATORVASTATIN CA 40 MG TABLET (FP) PO SCH (22:03)
[2017-10-26] MEDS ORDERED: DEXTROSE 5%-WATER - 50 ML IVPB ONE ×2 (02:12→09:35)
[2017-10-26] MEDS ORDERED: PIPERACILLIN/TAZOBACTAM 3.375 GM VIAL IVPB ONE ×2 (02:12→09:35)
[2017-10-26] MEDS: PIPERACILLIN/TAZOB 3.375 GM 3.375 GM in DEXTROSE 5%-WATER - 50 ML IVPB SCH ×2 (02:18→09:49)
[2017-10-26] MEDS: oxyCODONE HCL 5 MG TABLET PO PRN ×4 (05:14→23:37)
[2017-10-26] MEDS: ACETAMINOPHEN 325 MG TABLET (FP) PO PRN ×4 (05:14→23:37)
[2017-10-26] MEDS: HEPARIN NA (PORCINE) 5,000 UNITS/ML 1ML VIAL SQ SCH ×3 (05:15→21:59)
[2017-10-26] MEDS: SODIUM CHLORIDE 1,000 ML IV SCH ×3 (06:32→21:49)
[2017-10-26] MEDS: INSULIN SLIDING SCALE (NOVOLOG) 1 VIAL SQ SCH ×4 (06:32→22:00)
[2017-10-26] MEDS: GABAPENTIN 300 MG CAPSULE (FP) PO SCH ×3 (06:32→21:59)
--- NOTE | 2017-10-26 08:10 | PN ---
Progress Note, Physician - Current Medication List Current Medications: Active Medications Acetaminophen (Tylenol -) 650 mg PO Q4H PRN PRN Reason: PAIN LEVEL 1-3 Last Admin: 10/26/17 05:14 Dose: 650 mg Aspirin (Asa -) 81 mg PO DAILY [facility] Last Admin: 10/25/17 09:20 Dose: 81 mg Atorvastatin Calcium (Lipitor -) 40 mg PO HS [facility] Last Admin: 10/25/17 22:03 Dose: 40 mg Clopidogrel Bisulfate (Plavix -) 75 mg PO DAILY [facility] Last Admin: 10/25/17 09:20 Dose: 75 mg Duloxetine HCl (Cymbalta -) 20 mg PO DAILY [facility] Last Admin: 10/25/17 09:20 Dose: 20 mg Gabapentin (Neurontin -) 600 mg PO TID [facility] Last Admin: 10/26/17 06:32 Dose: 600 mg Heparin Sodium (Porcine) (Heparin -) 5,000 unit SQ TID [facility] Last Admin: 10/26/17 05:15 Dose: 5,000 unit Sodium Chloride (Normal Saline -) 1,000 mls @ 75 mls/hr IV ASDIR [facility] Last Admin: 10/26/17 06:32 Dose: 75 mls/hr Piperacillin Sod/Tazobactam (Sod 3.375 gm/ Dextrose) 50 mls @ 100 mls/hr IVPB Q8H-IV [facility] PRN Reason: Protocol Last Admin: 10/26/17 02:18 Dose: 100 mls/hr Insulin Aspart (Novolog Vial Sliding Scale -) 1 vial SQ ACHS [facility] PRN Reason: Protocol Last Admin: 10/26/17 06:32 Dose: Not Given Metoprolol Tartrate (Lopressor -) 25 mg PO BID [facility] Last Admin: 10/25/17 22:02 Dose: 25 mg Oxycodone HCl (Oxycontin -) 10 mg PO DAILY [facility] Last Admin: 10/25/17 09:20 Dose: 10 mg Oxycodone HCl (Roxicodone -) 5 mg PO Q6H PRN PRN Reason: PAIN LEVEL 4 - 6 Last Admin: 10/26/17 05:14 Dose: 5 mg - Objective Vital Signs: Vital Signs Temperature 98.7 F 10/26/17 06:00 Pulse Rate 80 10/26/17 06:00 Respiratory Rate 18 10/26/17 06:00 Blood Pressure 160/80 10/26/17 06:00 O2 Sat by Pulse Oximetry (%) 97 10/25/17 21:00 Cardiovascular: Yes: S1, S2 Respiratory: Yes: Regular, CTA Bilaterally Gastrointestinal: Yes: Normal Bowel Sounds, Soft Extremities: Yes: Other (GANGRENE TOES) Labs: CBC, BMP 10/22/17 06:20 10/22/17 06:20 INR, PTT INR 1.07 (0.82-1.09) 10/21/17 15:46 Problem List - Problems (1) Gangrene associated with diabetes mellitus Assessment/Plan: - with cellulitis - Vanco, cefepime in ED - Foot xr noted, consider MRI for osteo,--vascular FOLLOW UP - Vascular consulted - ID consulted Code(s): E11.52 - TYPE 2 DIABETES W DIABETIC PERIPHERAL ANGIOPATHY W GANGRENE (2) Anemia Assessment/Plan: follow labs Code(s): D64.9 - ANEMIA, UNSPECIFIED (3) CKD (chronic kidney disease) Assessment/Plan: - Start gentle fluids ns 75cc/hr - Hold lasix Code(s): N18.9 - CHRONIC KIDNEY DISEASE, UNSPECIFIED (4) Diabetes Assessment/Plan: - 12 units novolog TID - ISS, BGM ACHS Code(s): E11.9 - TYPE 2 DIABETES MELLITUS WITHOUT COMPLICATIONS Qualifiers: Diabetes mellitus type: type 2 Diabetes mellitus complication status: with circulatory complication (5) HTN (hypertension) Assessment/Plan: - Hold HCTZ/lasix due to PATRICIA - Metoprolol 25mg BID Code(s): I10 - ESSENTIAL (PRIMARY) HYPERTENSION (6) PAD (peripheral artery disease) Assessment/Plan: - Plavix, asa, statin - Gabapentin - Vascular Follow up Code(s): I73.9 - PERIPHERAL VASCULAR DISEASE, UNSPECIFIED
[2017-10-26] MEDS: CLOPIDOGREL BISULFATE 75 MG TABLET (FP) PO SCH (09:49)
[2017-10-26] MEDS: DULoxetine HCL 20 MG CAPSULE.DR (FP) PO SCH (09:49)
[2017-10-26] MEDS: oxyCODONE HCL 10 MG SUSTAINED ACTING TABLET PO SCH (09:49)
[2017-10-26] MEDS: METOPROLOL TARTRATE 25 MG TABLET (FP) PO SCH ×2 (09:49→21:59)
[2017-10-26] MEDS: ASPIRIN 81 MG CHEWABLE TABLETS PO SCH (09:49)
--- NOTE | 2017-10-26 10:04 | PN ---
Progress Note, Physician History of Present Illness: C/O foot pain No c/o fever/ chills Afebrile WBC improved - Current Medication List Current Medications: Active Medications Acetaminophen (Tylenol -) 650 mg PO Q4H PRN PRN Reason: PAIN LEVEL 1-3 Last Admin: 10/26/17 05:14 Dose: 650 mg Aspirin (Asa -) 81 mg PO DAILY [facility] Last Admin: 10/26/17 09:49 Dose: 81 mg Atorvastatin Calcium (Lipitor -) 40 mg PO HS [facility] Last Admin: 10/25/17 22:03 Dose: 40 mg Clopidogrel Bisulfate (Plavix -) 75 mg PO DAILY [facility] Last Admin: 10/26/17 09:49 Dose: 75 mg Duloxetine HCl (Cymbalta -) 20 mg PO DAILY [facility] Last Admin: 10/26/17 09:49 Dose: 20 mg Gabapentin (Neurontin -) 600 mg PO TID [facility] Last Admin: 10/26/17 06:32 Dose: 600 mg Heparin Sodium (Porcine) (Heparin -) 5,000 unit SQ TID [facility] Last Admin: 10/26/17 05:15 Dose: 5,000 unit Sodium Chloride (Normal Saline -) 1,000 mls @ 75 mls/hr IV ASDIR [facility] Last Admin: 10/26/17 06:32 Dose: 75 mls/hr Piperacillin Sod/Tazobactam (Sod 3.375 gm/ Dextrose) 50 mls @ 100 mls/hr IVPB Q8H-IV [facility] PRN Reason: Protocol Last Admin: 10/26/17 09:49 Dose: 100 mls/hr Insulin Aspart (Novolog Vial Sliding Scale -) 1 vial SQ ACHS [facility] PRN Reason: Protocol Last Admin: 10/26/17 06:32 Dose: Not Given Metoprolol Tartrate (Lopressor -) 25 mg PO BID [facility] Last Admin: 10/26/17 09:49 Dose: 25 mg Oxycodone HCl (Oxycontin -) 10 mg PO DAILY [facility] Last Admin: 10/26/17 09:49 Dose: 10 mg Oxycodone HCl (Roxicodone -) 5 mg PO Q6H PRN PRN Reason: PAIN LEVEL 4 - 6 Last Admin: 10/26/17 05:14 Dose: 5 mg - Objective Vital Signs: Vital Signs Temperature 98.7 F 10/26/17 06:00 Pulse Rate 80 05/07/18 06:00 Respiratory Rate 18 10/26/17 06:00 Blood Pressure 160/80 10/26/17 06:00 O2 Sat by Pulse Oximetry (%) 97 10/25/17 21:00 Constitutional: Yes: No Distress Cardiovascular: Yes: Regular Rate and Rhythm, S1, S2 Respiratory: Yes: CTA Bilaterally Gastrointestinal: Yes: Normal Bowel Sounds, Soft. No: Tenderness Extremities: Yes: Other (+ gangrene L foot. Swelling/ erythema resolved) Labs: CBC, BMP 10/22/17 06:20 10/22/17 06:20 INR, PTT INR 1.07 (0.82-1.09) 10/21/17 15:46 Assessment/Plan Gangrene/ cellulitis L foot Peripheral vascular disease Leukocytosis- improved substitute po Augmentin vascular follow up
[2017-10-26 10:51] LABS: ALK PHOS 260 U/L (45-117); ANION GAP 8 (8-16); BLOOD UREA NITROGEN 14 mg/dL (7-18); CALCIUM 7.6 mg/dL (8.5-10.1); CHLORIDE 116 mmol/L (98-107); CO2 19 mmol/L (21-32); CREATININE 1.2 mg/dL (0.55-1.02); GLUCOSE,RANDOM 202 mg/dL (74-106); POTASSIUM 4.8 mmol/L (3.5-5.1); SGOT/AST 17 U/L (15-37); SGPT/ALT 9 U/L (12-78); SODIUM 143 mmol/L (136-145)
[2017-10-26 10:52] LABS: BILIRUBIN,TOTAL 1.3 mg/dL (0.2-1.0); TOT PROT 4.8 g/dl (6.4-8.2)
[2017-10-26] MEDS ORDERED: INSULIN (NOVOLOG) ASPART 100 UNITS/ML 10ML VIAL ONE ×2 (11:08→21:50)
[2017-10-26] MEDS: LACTOBACILLUS ACIDOPHILUS 1 TABLET PO SCH (11:12)
[2017-10-26] MEDS: FLUCONAZOLE 100 MG TABLET (UD) PO SCH (11:12)
[2017-10-26 11:24] LABS: BASO % 0.6 % (0-2.0); EOS % 0.9 % (0-4.5); HEMOGLOBIN 9.3 GM/dL (10.7-15.3); LYMPH % 13.9 % (8-40); MCH 29.4 pg (25.7-33.7); MCHC 33.4 g/dl (32.0-36.0); MEAN PLT VOLUME 7.2 fl (7.5-11.1); MONO % 4.5 % (3.8-10.2); NEUT % 80.1 % (42.8-82.8); PLATELET COUNT 615 K/MM3 (134-434); RBC 3.18 M/mm3 (3.60-5.2); RDW 14.4 % (11.6-15.6); WHITE BLOOD COUNT 16.6 K/mm3 (4.0-10.0)
[2017-10-26] MEDS: AMOX TR/POT CLAV 875MG/125MG TABLETS (FP) PO SCH (17:31)
[2017-10-26] MEDS: ATORVASTATIN CA 40 MG TABLET (FP) PO SCH (21:59)
[2017-10-27] MEDS: HEPARIN NA (PORCINE) 5,000 UNITS/ML 1ML VIAL SQ SCH ×3 (06:00→21:35)
[2017-10-27] MEDS: INSULIN SLIDING SCALE (NOVOLOG) 1 VIAL SQ SCH ×4 (06:01→21:58)
[2017-10-27] MEDS: GABAPENTIN 300 MG CAPSULE (FP) PO SCH ×3 (06:01→21:35)
[2017-10-27] MEDS: oxyCODONE HCL 5 MG TABLET PO PRN ×3 (07:52→21:35)
[2017-10-27] MEDS: AMOX TR/POT CLAV 875MG/125MG TABLETS (FP) PO SCH ×2 (07:52→17:42)
[2017-10-27] MEDS: ACETAMINOPHEN 325 MG TABLET (FP) PO PRN ×3 (07:52→21:35)
[2017-10-27] MEDS: oxyCODONE HCL 10 MG SUSTAINED ACTING TABLET PO SCH (10:31)
[2017-10-27] MEDS: ASPIRIN 81 MG CHEWABLE TABLETS PO SCH (10:31)
[2017-10-27] MEDS: FLUCONAZOLE 100 MG TABLET (UD) PO SCH (10:31)
[2017-10-27] MEDS: DULoxetine HCL 20 MG CAPSULE.DR (FP) PO SCH (10:32)
[2017-10-27] MEDS: LACTOBACILLUS ACIDOPHILUS 1 TABLET PO SCH (10:32)
[2017-10-27] MEDS: METOPROLOL TARTRATE 25 MG TABLET (FP) PO SCH ×2 (10:32→21:35)
[2017-10-27] MEDS: CLOPIDOGREL BISULFATE 75 MG TABLET (FP) PO SCH (10:33)
--- NOTE | 2017-10-27 10:58 | DS ---
Physical Examination Vital Signs: Vital Signs Temperature 98.6 F 10/27/17 09:00 Pulse Rate 84 10/27/17 09:00 Respiratory Rate 18 10/27/17 09:00 Blood Pressure 146/92 10/27/17 09:00 O2 Sat by Pulse Oximetry (%) 96 10/27/17 09:00 Constitutional: Yes: Well Nourished, No Distress, Calm Cardiovascular: Yes: Regular Rate and Rhythm Respiratory: Yes: Regular Gastrointestinal: Yes: Normal Bowel Sounds, Soft Musculoskeletal: Yes: Other (LLE pain) Extremities: Yes: WNL Peripheral Pulses WNL: No Peripheral Pulses: Left Doralis Pedis: 1+, Right Dorsalis Pedis: 1+ Neurological: Yes: Alert, Pre-Existing Deficit Psychiatric: Yes: Alert Labs: CBC, BMP 10/26/17 10:50 10/26/17 09:46 Discharge Summary Reason For Visit: GANGRENE ASSOCIATED WITH DIABETES MELLITUS Hospital Course: This is a 52 year old female with pmhx R BKA, gangrene to left foot, HTN, HLD, DM II, CKD, PAD, presented to the ED with worsening left lower ext/foot pain. Since the patient was discharged home on 10/12/17 she states she has been sleeping on the floor of her home because she doesn't have a bed. She has an aid and today the visiting nurse came to change the dressing and incited the pain when changing and cleaning. She notes she ran out of her pain medication and has an appt to see wound care next month. She denies sob, chest pain, n/v, abdominal pain. Condition: Stable - Instructions Diet, Activity, Other Instructions: Follow up with Dr. Manzo in the wound clinic as an outpt pt, pt to have HBO treatment Referrals: Herbert Jo [Primary Care Provider] - Disposition: VNS/HOME HEALTH CARE - Home Medications Comprehensive Discharge Medication List: Ambulatory Orders Aspirin [ASA -] 81 mg PO DAILY 05/04/15 Acetaminophen [Tylenol .Regular Strength -] 650 mg PO Q6H PRN #0 tablet Hydrochlorothiazide [Hctz -] 12.5 mg PO DAILY cap 09/08/16 Clopidogrel Bisulfate [Plavix -] 75 mg PO DAILY 09/10/17 Furosemide [Lasix -] 20 mg PO DAILY 09/10/17 Insulin (Novolog) [Novolog Flexpen -] 12 units SQ TID 09/10/17 Atorvastatin Ca [Lipitor] 40 mg PO HS #30 tablet 09/21/17 Oxycodone HCl [Oxycontin] 1 tab PO DAILY 10/05/17 Metoprolol Tartrate [Lopressor -] 25 mg PO BID #60 tablet 10/12/17 Gabapentin [Neurontin -] 600 mg PO TID 10/21/17
[2017-10-27] MEDS ORDERED: INSULIN (NOVOLOG) ASPART 100 UNITS/ML 10ML VIAL ONE ×2 (11:39→21:28)
[2017-10-27] MEDS: ATORVASTATIN CA 40 MG TABLET (FP) PO SCH (21:35)
[2017-10-28] MEDS: GABAPENTIN 300 MG CAPSULE (FP) PO SCH ×3 (05:51→21:23)
[2017-10-28] MEDS: oxyCODONE HCL 5 MG TABLET PO PRN ×3 (05:52→19:49)
[2017-10-28] MEDS: HEPARIN NA (PORCINE) 5,000 UNITS/ML 1ML VIAL SQ SCH ×3 (05:52→21:23)
[2017-10-28] MEDS: ACETAMINOPHEN 325 MG TABLET (FP) PO PRN ×2 (05:52→21:21)
[2017-10-28] MEDS ORDERED: INSULIN (NOVOLOG) ASPART 100 UNITS/ML 10ML VIAL ONE ×3 (06:20→19:09)
[2017-10-28] MEDS: INSULIN SLIDING SCALE (NOVOLOG) 1 VIAL SQ SCH ×5 (06:26→21:25)
[2017-10-28] MEDS: AMOX TR/POT CLAV 875MG/125MG TABLETS (FP) PO SCH ×2 (08:00→17:30)
[2017-10-28] MEDS ORDERED: PT OWN MED DRAWER 7, Y5N ONE (10:02)
[2017-10-28] MEDS: ASPIRIN 81 MG CHEWABLE TABLETS PO SCH (10:05)
[2017-10-28] MEDS: oxyCODONE HCL 10 MG SUSTAINED ACTING TABLET PO SCH (10:05)
[2017-10-28] MEDS: FLUCONAZOLE 100 MG TABLET (UD) PO SCH (10:05)
[2017-10-28] MEDS: LACTOBACILLUS ACIDOPHILUS 1 TABLET PO SCH (10:06)
[2017-10-28] MEDS: DULoxetine HCL 20 MG CAPSULE.DR (FP) PO SCH (10:06)
[2017-10-28] MEDS: METOPROLOL TARTRATE 25 MG TABLET (FP) PO SCH ×2 (10:06→21:25)
[2017-10-28] MEDS: CLOPIDOGREL BISULFATE 75 MG TABLET (FP) PO SCH (10:06)
--- NOTE | 2017-10-28 10:45 | PN ---
Progress Note, Physician History of Present Illness: NAD c/o pain left foot pain - Current Medication List Current Medications: Active Medications Acetaminophen (Tylenol -) 650 mg PO Q4H PRN PRN Reason: PAIN LEVEL 1-3 Last Admin: 10/28/17 05:52 Dose: 650 mg Amoxicillin/Clavulanate Potassium (Augmentin - 875mg Tablet) 1 tab PO BID@0800, 1730 [facility] Last Admin: 10/28/17 08:00 Dose: 1 tab Aspirin (Asa -) 81 mg PO DAILY [facility] Last Admin: 10/28/17 10:05 Dose: 81 mg Atorvastatin Calcium (Lipitor -) 40 mg PO HS [facility] Last Admin: 10/27/17 21:35 Dose: 40 mg Clopidogrel Bisulfate (Plavix -) 75 mg PO DAILY [facility] Last Admin: 10/28/17 10:06 Dose: 75 mg Duloxetine HCl (Cymbalta -) 20 mg PO DAILY [facility] Last Admin: 10/28/17 10:06 Dose: 20 mg Fluconazole (Diflucan -) 200 mg PO DAILY [facility] Last Admin: 10/28/17 10:05 Dose: 200 mg Gabapentin (Neurontin -) 600 mg PO TID [facility] Last Admin: 10/28/17 05:51 Dose: 600 mg Heparin Sodium (Porcine) (Heparin -) 5,000 unit SQ TID [facility] Last Admin: 10/28/17 05:52 Dose: 5,000 unit Insulin Aspart (Novolog Vial Sliding Scale -) 1 vial SQ ACHS [facility] PRN Reason: Protocol Last Admin: 10/28/17 06:26 Dose: Not Given Lactobacillus Acidophilus (Bacid -) 1 tab PO DAILY [facility] Last Admin: 10/28/17 10:06 Dose: 1 tab Metoprolol Tartrate (Lopressor -) 25 mg PO BID [facility] Last Admin: 10/28/17 10:06 Dose: 25 mg Oxycodone HCl (Oxycontin -) 10 mg PO DAILY [facility] Last Admin: 10/28/17 10:05 Dose: 10 mg Oxycodone HCl (Roxicodone -) 5 mg PO Q6H PRN PRN Reason: PAIN LEVEL 4 - 6 Last Admin: 10/28/17 05:52 Dose: 5 mg - Objective Vital Signs: Vital Signs Temperature 97.9 F 10/28/17 05:42 Pulse Rate 81 05/09/18 05:42 Respiratory Rate 18 10/28/17 05:42 Blood Pressure 149/81 10/28/17 05:42 O2 Sat by Pulse Oximetry (%) 96 10/27/17 22:00 Constitutional: Yes: Well Nourished, No Distress, Calm Cardiovascular: Yes: Regular Rate and Rhythm Respiratory: Yes: Regular Gastrointestinal: Yes: Normal Bowel Sounds, Soft Musculoskeletal: Yes: Muscle Weakness Edema: No Peripheral Pulses WNL: Yes Neurological: Yes: Alert, Pre-Existing Deficit Psychiatric: Yes: Alert Labs: CBC, BMP 10/26/17 10:50 10/26/17 09:46 INR, PTT INR 1.07 (0.82-1.09) 10/21/17 15:46 Problem List - Problems (1) Anemia Assessment/Plan: anemia of chronic disease stable at this time Code(s): D64.9 - ANEMIA, UNSPECIFIED (2) CKD (chronic kidney disease) Assessment/Plan: BUN/Cr at base line 2/2 to chronic uncontrolled diabetes Code(s): N18.9 - CHRONIC KIDNEY DISEASE, UNSPECIFIED (3) Cellulitis Assessment/Plan: -d/c on po abx -f/u with Jose Epps-Vascular surgery for HBO outpatient Code(s): L03.90 - CELLULITIS, UNSPECIFIED Qualifiers: Site of cellulitis: unspecified site Qualified Code(s): L03.90 - Cellulitis , unspecified (4) MRSA (methicillin resistant Staphylococcus aureus) colonization Code(s): Z22.322 - CARRIER OR SUSPECTED CARRIER OF METHICILLIN RESIS STAPH (5) 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
[2017-10-28] MEDS: ATORVASTATIN CA 40 MG TABLET (FP) PO SCH (21:23)
[2017-10-29] MEDS: GABAPENTIN 300 MG CAPSULE (FP) PO SCH (06:00)
[2017-10-29] MEDS: HEPARIN NA (PORCINE) 5,000 UNITS/ML 1ML VIAL SQ SCH (06:00)
[2017-10-29] MEDS: oxyCODONE HCL 5 MG TABLET PO PRN (06:06)
[2017-10-29] MEDS: INSULIN SLIDING SCALE (NOVOLOG) 1 VIAL SQ SCH (06:17)
[2017-10-29] MEDS: AMOX TR/POT CLAV 875MG/125MG TABLETS (FP) PO SCH (07:45)
[2017-10-29] MEDS: ACETAMINOPHEN 325 MG TABLET (FP) PO PRN (07:45)
[2017-10-29 08:33] LABS: BASO % 0.7 % (0-2.0); EOS % 3.3 % (0-4.5); HEMATOCRIT 28.8 % (32.4-45.2); HEMOGLOBIN 9.7 GM/dL (10.7-15.3); LYMPH % 20.2 % (8-40); MCH 29.8 pg (25.7-33.7); MCHC 33.5 g/dl (32.0-36.0); MEAN CELL VOLUME 88.9 fl (80-96); MEAN PLT VOLUME 7.1 fl (7.5-11.1); MONO % 6.4 % (3.8-10.2); NEUT % 69.4 % (42.8-82.8); PLATELET COUNT 599 K/MM3 (134-434); RBC 3.24 M/mm3 (3.60-5.2); RDW 14.6 % (11.6-15.6); WHITE BLOOD COUNT 9.6 K/mm3 (4.0-10.0)
[2017-10-29 08:38] VITALS: BP 152/96; PULSE 88; TEMP 98.2
--- NOTE | 2017-10-29 08:49 | DS ---
Physical Examination Vital Signs: Vital Signs Temperature 98.2 F 10/29/17 08:37 Pulse Rate 88 10/29/17 08:37 Respiratory Rate 18 10/29/17 08:37 Blood Pressure 152/96 10/29/17 08:37 O2 Sat by Pulse Oximetry (%) 95 10/28/17 20:36 Cardiovascular: Yes: S1, S2 Respiratory: Yes: Regular, CTA Bilaterally Gastrointestinal: Yes: Normal Bowel Sounds, Soft Extremities: Yes: Amputation, Other (gamgrene) Labs: CBC, BMP 10/29/17 08:20 Discharge Summary Reason For Visit: GANGRENE ASSOCIATED WITH DIABETES MELLITUS Hospital Course: This is a 52 year old female with pmhx R BKA, gangrene to left foot, HTN, HLD, DM II, CKD, PAD, presented to the ED with worsening left lower ext/foot pain. Since the patient was discharged home on 10/12/17 she states she has been sleeping on the floor of her home because she doesn't have a bed. She has an aid and today the visiting nurse came to change the dressing and incited the pain when changing and cleaning. She notes she ran out of her pain medication and has an appt to see wound care next month. She denies sob, chest pain, n/v, abdominal pain. - Problems (1) Anemia Assessment/Plan: anemia of chronic disease stable at this time Code(s): D64.9 - ANEMIA, UNSPECIFIED (2) CKD (chronic kidney disease) Assessment/Plan: BUN/Cr at base line 2/2 to chronic uncontrolled diabetes Code(s): N18.9 - CHRONIC KIDNEY DISEASE, UNSPECIFIED (3) Cellulitis Assessment/Plan: -d/c on po abx -f/u with Jose Epps-Vascular surgery for HBO outpatient Code(s): L03.90 - CELLULITIS, UNSPECIFIED Qualifiers: Site of cellulitis: unspecified site Qualified Code(s): L03.90 - Cellulitis , unspecified (4) MRSA (methicillin resistant Staphylococcus aureus) colonization Code(s): Z22.322 - CARRIER OR SUSPECTED CARRIER OF METHICILLIN RESIS STAPH (5) 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 Manzo in the wound clinic as an outpt pt, pt to have HBO treatment Referrals: Herbert Jo [Primary Care Provider] - Disposition: VNS/HOME HEALTH CARE - Home Medications Comprehensive Discharge Medication List: Ambulatory Orders Aspirin [ASA -] 81 mg PO DAILY 05/04/15 Acetaminophen [Tylenol .Regular Strength -] 650 mg PO Q6H PRN #0 tablet Hydrochlorothiazide [Hctz -] 12.5 mg PO DAILY cap 09/08/16 Clopidogrel Bisulfate [Plavix -] 75 mg PO DAILY 09/10/17 Furosemide [Lasix -] 20 mg PO DAILY 09/10/17 Insulin (Novolog) [Novolog Flexpen -] 12 units SQ TID 09/10/17 Atorvastatin Ca [Lipitor] 40 mg PO HS #30 tablet 09/21/17 Oxycodone HCl [Oxycontin] 1 tab PO DAILY 10/05/17 Metoprolol Tartrate [Lopressor -] 25 mg PO BID #60 tablet 10/12/17 Gabapentin [Neurontin -] 600 mg PO TID 10/21/17 Amox-Tr/K Cl [Augmentin 875-125mg Tablet -] 1 tab PO BID@0800,1730 #14 tablet Duloxetine HCl [Cymbalta -] 20 mg PO DAILY #30 capsule. 10/27/17 Fluconazole [Diflucan -] 200 mg PO DAILY #6 tablet 10/27/17 Lactobacillus Acidophilus [Bacid -] 1 tab PO DAILY #30 tab 10/27/17
[2017-10-29 09:04] LABS: ALBUMIN 1.1 g/dl (3.4-5.0); ALK PHOS 249 U/L (45-117); ANION GAP 10 (8-16); BILIRUBIN,TOTAL 0.1 mg/dL (0.2-1.0); BLOOD UREA NITROGEN 18 mg/dL (7-18); CALCIUM 8.3 mg/dL (8.5-10.1); CHLORIDE 114 mmol/L (98-107); CO2 21 mmol/L (21-32); CREATININE 1.2 mg/dL (0.55-1.02); GLUCOSE,RANDOM 154 mg/dL (74-106); POTASSIUM 4.2 mmol/L (3.5-5.1); SGOT/AST 14 U/L (15-37); SGPT/ALT 8 U/L (12-78); SODIUM 145 mmol/L (136-145); TOT PROT 5.1 g/dl (6.4-8.2)
[2017-10-29] MEDS: oxyCODONE HCL 10 MG SUSTAINED ACTING TABLET PO SCH (10:04)
[2017-10-29] MEDS: LACTOBACILLUS ACIDOPHILUS 1 TABLET PO SCH (10:05)
[2017-10-29] MEDS: CLOPIDOGREL BISULFATE 75 MG TABLET (FP) PO SCH (10:05)
[2017-10-29] MEDS: ASPIRIN 81 MG CHEWABLE TABLETS PO SCH (10:05)
[2017-10-29] MEDS: FLUCONAZOLE 100 MG TABLET (UD) PO SCH (10:05)
[2017-10-29] MEDS: METOPROLOL TARTRATE 25 MG TABLET (FP) PO SCH (10:05)
[2017-10-29] MEDS: DULoxetine HCL 20 MG CAPSULE.DR (FP) PO SCH (10:05)
== END 2017-10-29 12:27 | disposition home health service (06) | DRG 197 ==
LOC: JER 14:05 → JERBED 17:33 → J6S 21:10
PROVIDERS: ADMIT Internal Medicine; ATTEND Family Medicine
DX: E11.52 Type 2 diabetes mellitus with diabetic peripheral angiopathy with gangrene (principal); N17.9 Acute kidney failure, unspecified; I70.269 Atherosclerosis of native arteries of extremities with gangrene, unspecified extremity; E11.65 Type 2 diabetes mellitus with hyperglycemia; L03.116 Cellulitis of left lower limb; E11.22 Type 2 diabetes mellitus with diabetic chronic kidney disease; E78.5 Hyperlipidemia, unspecified; Z79.4 Long term (current) use of insulin; I12.9 Hypertensive chronic kidney disease with stage 1 through stage 4 chronic kidney disease, or unspecified chronic kidney disease; N18.9 Chronic kidney disease, unspecified; Z89.511 Acquired absence of right leg below knee; F17.210 Nicotine dependence, cigarettes, uncomplicated; D64.9 Anemia, unspecified
CPT/HCPCS: 36415; 73630-TC-LT; 80053; 81003; 81015; 82550; 82553; 82962; 83735; 84100; 84484; 85025; 85610; 85730; 87040; 87086; 93005; 93010; 93971-TC; 99284-25; J1644; J7030

== ENCOUNTER 2017-11-06 21:53 | Inpatient (IN) | payer OTHER ==
--- NOTE | 2017-11-06 22:00 | PDOC ---
Rapid Medical Evaluation Chief Complaint: Wound Time Seen by Provider: 11/06/17 21:58 Medical Evaluation: Allergies Allergy/AdvReac Type Severity Reaction Status Date / Time No Known Allergies Allergy Verified 10/21/17 14:34 11/06/17 21:58 I have performed a brief in-person evaluation of this patient. The patient presents with a chief complaint of: left foot pain- d/c'd from other hospital @1953hrs today Pertinent physical exam findings: deferred I have ordered the following: nothing The patient will proceed to the ED for further evaluation. Discharge Disposition - Diagnosis Foot pain, left - Referrals - Patient Instructions - Post Discharge Activity
--- NOTE | 2017-11-06 23:18 | PDOC ---
History of Present Illness - General History Source: Patient Exam Limitations: No Limitations - History of Present Illness Initial Comments: 11/07/17 03:55 Patient is a 52 year old female with a significant past medical history of Diabetes, HTN, PAD, who presents to the ED with complaints of left foot pain. Patient reports experiencing gradual onset of gangrene on her left foot that began earlier this month. She reports going to [facility] for similar symptoms, stating she was oxycodone and antibiotics which she states she was not fully compliant to. Patient reports left foot pain is a chronic pain, stating she came into the ED to have her left foot amputated as she can no longer bear the pain. Patient states believes the symptoms are due to her sleeping on the floor of her new apartment. Denies chest pain, Sob. Denies nausea, vomiting. Denies contact with sick individuals out of state travelling. Denies fevers, chills. Denies dysuria, hematuria, constipation, diarrhea. Denies any other symptoms. Allergies: None Social history: Lives alone. Current smoker. No alcohol. No illicit drugs. Surgical history: Right below the knee surgery s/p july. PMD: Dr. Jo Vascular surgeon: Dr. Manzo <Chris Shelton - Last Filed: 11/07/17 03:56> <Lisbeth Jacobsen - Last Filed: 11/08/17 02:00> - General Chief Complaint: Wound Stated Complaint: WOUND Time Seen by Provider: 11/06/17 21:58 Past History <Chris Shelton - Last Filed: 11/07/17 03:56> - Past Medical History Anemia: No Asthma: Yes Cancer: No Cardiac Disorders: No CVA: No COPD: No DVT: No Dementia: No Diabetes: Yes Dialysis: No GI Disorders: No Disorders: No HTN: Yes Hypercholesterolemia: Yes Kidney Stones: No Liver Disease: No Psychiatric Problems: No Seizures: No Thyroid Disease: No Lung CA: No - Surgical History Abdominal Surgery: No Appendectomy: No Cardiac Surgery: No Cholecystectomy: Yes (?) Gastric Stapling: No GI Surgery: No Lung Surgery: No Neurologic Surgery: No - Suicide/Smoking/Psychosocial Hx Smoking Status: Yes Smoking History: Current every day smoker Have you smoked in the past 12 months: Yes Number of Cigarettes Smoked Daily: 2 Information on smoking cessation initiated: No Hx Alcohol Use: No Drug/Substance Use Hx: No Substance Use Type: None Hx Substance Use Treatment: No <Lisbeth Jacobsen - Last Filed: 11/08/17 02:00> - Past Medical History Allergies/Adverse Reactions: Allergies Allergy/AdvReac Type Severity Reaction Status Date / Time No Known Allergies Allergy Verified 11/06/17 22:01 Home Medications: Ambulatory Orders Aspirin [ASA -] 81 mg PO DAILY 05/04/15 Hydrochlorothiazide [Hctz -] 12.5 mg PO DAILY cap 09/08/16 Clopidogrel Bisulfate [Plavix -] 75 mg PO DAILY 09/10/17 Insulin (Novolog) [Novolog Flexpen -] 12 units SQ TID 09/10/17 Atorvastatin Ca [Lipitor] 40 mg PO HS #30 tablet 09/21/17 Gabapentin [Neurontin -] 1 tab PO BID 10/21/17 Lactobacillus Acidophilus [Bacid -] 1 tab PO DAILY #30 tab 10/27/17 Amlodipine Besylate [Norvasc -] 10 mg PO DAILY 11/06/17 Lorazepam [Ativan] 2 mg PO DAILY PRN 11/06/17 Oxycodone HCl/Acetaminophen [Oxycodone-Acetaminophen 5-325] 1 each PO BID PRN Paroxetine HCl 10 mg PO DAILY 11/06/17 Sulfamethoxazole/Trimethoprim [Bactrim Ds -] 1 tab PO BID 11/06/17 Review of Systems - Review of Systems Able to Perform ROS?: Yes Comments:: 11/07/17 03:55 GENERAL/CONSTITUTIONAL: No fever or chills. No weakness. HEAD, EYES, EARS, NOSE AND THROAT: No change in vision. No ear pain or discharge. No sore throat. CARDIOVASCULAR: No chest pain or shortness of breath. RESPIRATORY: No cough, wheezing, or hemoptysis. GASTROINTESTINAL: No nausea, vomiting, diarrhea or constipation. GENITOURINARY: No dysuria, frequency, or change in urination. MUSCULOSKELETAL: No joint or muscle swelling or pain. No neck or back pain. SKIN: +Left gangrenous foot. NEUROLOGIC: No headache, vertigo, loss of consciousness, or change in strength/ sensation. ENDOCRINE: No increased thirst. No abnormal weight change. HEMATOLOGIC/LYMPHATIC: No anemia, easy bleeding, or history of blood clots. ALLERGIC/IMMUNOLOGIC: No hives or skin allergy. <Chris Shelton - Last Filed: 11/07/17 03:56> *Physical Exam - Vital Signs Last Vital Signs Temp Pulse Resp BP Pulse Ox 98.4 F 87 19 146/87 100 11/06/17 21:58 11/06/17 21:58 11/06/17 21:58 11/06/17 21:58 11/06/17 21:58 - Physical Exam Comments: 11/07/17 03:56 GENERAL: Awake, alert, and fully oriented, in no acute distress HEAD: No signs of trauma EYES: PERRLA, EOMI, sclera anicteric, conjunctiva clear ENT: Auricles normal inspection, hearing grossly normal, nares patent, oropharynx clear without exudates. Moist mucosa NECK: Normal ROM, supple, no lymphadenopathy, JVD, or masses LUNGS: Breath sounds equal, clear to auscultation bilaterally. No wheezes, and no crackles HEART: Regular rate and rhythm, normal S1 and S2, no murmurs, rubs or gallops ABDOMEN: Soft, nontender, normoactive bowel sounds. No guarding, no rebound. No masses EXTREMITIES: +Right BKA. +Left dry Gangrene on first, third, and fourth digits. +Wet Gangrene on left second and fifth digit. Normal range of motion, No cords, erythema, NEUROLOGICAL: Cranial nerves II through XII grossly intact. Normal speech, normal gait SKIN: Warm, Dry, normal turgor, no rashes or lesions noted. <Chris Shelton - Last Filed: 11/07/17 03:56> - Vital Signs Last Vital Signs Temp Pulse Resp BP Pulse Ox 98.4 F 87 19 146/87 100 11/06/17 21:58 11/06/17 21:58 11/06/17 21:58 11/06/17 21:58 11/06/17 21:58 <Lisbeth Jacobsen - Last Filed: 11/08/17 02:00> Heart Score/ECG Review - ECG Intrepretation Comment:: 11/07/17 02:36 Completed @1:48:43 Normal sinus rhythm Low voltage QRS Borderline QRS Vent. rate 86 bpm MS interval 112 ms QRS duration 72 ms <Chris Shelton - Last Filed: 11/07/17 03:56> ED Treatment Course - LABORATORY CBC & Chemistry Diagram: 11/07/17 00:45 11/07/17 00:45 - ADDITIONAL ORDERS Additional order review: Laboratory Results 11/07/17 11/07/17 11/07/17 01:18 00:45 00:45 PT with INR 12.50 INR 1.11 Sodium 141 Potassium 4.2 Chloride 110 H Carbon Dioxide 24 Anion Gap 7 L BUN 11 Creatinine 1.5 H Random Glucose 173 H Calcium 7.5 L Blood Type O POSITIVE Antibody Screen Negative 11/07/17 00:45 RBC 3.59 L MCV 87.8 MCHC 32.9 RDW 14.3 MPV 7.4 L Neutrophils % 70.2 Lymphocytes % 20.0 Monocytes % 5.8 Eosinophils % 3.1 Basophils % 0.9 - Medications Given in the ED: ED Medications Discontinued Medications Generic Name Dose Route Start Last Admin Trade Name Freq PRN Reason Stop Dose Admin Morphine Sulfate 2 mg 11/07/17 00:06 11/07/17 01:03 Morphine Injection - IVPUSH 11/07/17 00:07 2 mg ONCE ONE Administration Sodium Chloride 500 ml 11/07/17 00:07 11/07/17 01:04 Normal Saline - IV 11/07/17 00:08 500 ml ONCE ONE Administration <Chris Shelton - Last Filed: 11/07/17 03:56> - LABORATORY CBC & Chemistry Diagram: 11/07/17 00:45 11/07/17 00:45 <Lisbeth Jacobsen - Last Filed: 11/08/17 02:00> Medical Decision Making - Medical Decision Making 11/08/17 01:56 Pt comes with gangrenous toes and she finally decided that she wants to have her foot resected. I spoke to vascular surgery who states that pt has been refusing surgery up to this time. We will admit the patient, as her gangrenous ffot is exquisitely painful and she cannot tolerate it. Pt was spent the past 3 days at [facility], where she was treated with IV abx and sent home with oral abx. She was asked to follow with her vasc. surgeon here. Pt admitted. <Lisbeth Jacobsen - Last Filed: 11/08/17 02:00> *DC/Admit/Observation/Transfer - Attestations Scribe Attestion: 11/07/17 03:56 Documentation prepared by Chris Shelton, acting as rn medical inpatient services for Lisbeth Jacobsen MD. <Chris Shelton - Last Filed: 11/07/17 03:56> - Discharge Dispostion Decision to Admit order: Yes <Lisbeth Jacobsen - Last Filed: 11/08/17 02:00> Diagnosis at time of Disposition: Foot pain, left, PAD (peripheral artery disease), Gangrene associated with diabetes mellitus, Dry gangrene, Pre-op evaluation - Discharge Dispostion Condition at time of disposition: Poor
[2017-11-07] MEDS ORDERED: morphine CARPU-JECT 2 MG/1 ML DISP.SYRIN IVPUSH ONE (00:06)
[2017-11-07] MEDS ORDERED: SODIUM CHLORIDE 0.9% 500 ML INFUS.BAG IV ONE (00:07)
[2017-11-07] MEDS ORDERED: morphine SULFATE 4 MG/ML VIAL ONE (00:21)
[2017-11-07 01:25] LABS: BASO % 0.9 % (0-2.0); EOS % 3.1 % (0-4.5); HEMATOCRIT 31.5 % (32.4-45.2); HEMOGLOBIN 10.4 GM/dL (10.7-15.3); MCH 28.8 pg (25.7-33.7); MCHC 32.9 g/dl (32.0-36.0); MEAN CELL VOLUME 87.8 fl (80-96); MEAN PLT VOLUME 7.4 fl (7.5-11.1); MONO % 5.8 % (3.8-10.2); NEUT % 70.2 % (42.8-82.8); PLATELET COUNT 766 K/MM3 (134-434); RBC 3.59 M/mm3 (3.60-5.2); RDW 14.3 % (11.6-15.6); WHITE BLOOD COUNT 9.3 K/mm3 (4.0-10.0)
[2017-11-07 01:44] LABS: INR 1.11 (0.82-1.09); PROTHROMBIN TIME (PATIENT) 12.5 SEC (9.7-13.0)
[2017-11-07 02:20] LABS: ANION GAP 7 (8-16); BLOOD UREA NITROGEN 11 mg/dL (7-18); CALCIUM 7.5 mg/dL (8.5-10.1); CHLORIDE 110 mmol/L (98-107); CO2 24 mmol/L (21-32); CREATININE 1.5 mg/dL (0.55-1.02); GLUCOSE,RANDOM 173 mg/dL (74-106); POTASSIUM 4.2 mmol/L (3.5-5.1); SODIUM 141 mmol/L (136-145)
[2017-11-07] MEDS ORDERED: PIPERACILLIN/TAZOB 3.375 GM 3.375 GM in DEXTROSE 5%-WATER - 50 ML IVPB ONE (03:06)
[2017-11-07] MEDS ORDERED: oxyCODONE HCL 5 MG TABLET PO PRN (03:58)
[2017-11-07] MEDS ORDERED: VANCOMYCIN 1,250 MG in DEXTROSE 5%-WATER - 250 ML IVPB ONE (04:00)
[2017-11-07] MEDS ORDERED: PIPERACILLIN/TAZOB 3.375 GM 3.375 GM/50 ML BAG IVPB ONE (04:03)
--- NOTE | 2017-11-07 04:04 | HP ---
CHIEF COMPLAINT: Pain left foot PCP: Jayro Burton; Vascular: Manzo HISTORY OF PRESENT ILLNESS: This is a 43 year old female with a significant past medical history of DM, PAD , R BKA, chronic wound/gangrene L toes presented to the ED for pain to L foot. Pt was admitted here for same from 09/12-09/22, 10/05-10/13, 10/21-10/29 and then at [facility] from 11/03-11/06. Pt states she is now agreeing to amputation of toes. ER course was notable for: (1) WBC 9.3 Recent Travel: pt denies PAST MEDICAL HISTORY: HTN, HLD, PAD, DM, asthma, pancreatitis, pyelonephritis, s/p tibial artery angioplasty 10/08/17 PAST SURGICAL HISTORY: R BKA 2017 cholecystectomy 1997 Social History: Smoking: "1 cig/day" Alcohol: pt denies any history of same, previous charts document previous alcoholism Drugs: pt denies Family History: pt declined to answer Allergies No Known Allergies Allergy (Verified 11/06/17 22:01) HOME MEDICATIONS: 3 Medication Instructions Recorded Aspirin [ASA -] 81 mg PO DAILY 05/04/15 Hydrochlorothiazide [Hctz -] 12.5 mg PO DAILY cap 09/08/16 Clopidogrel Bisulfate [Plavix -] 75 mg PO DAILY 09/10/17 Insulin (Novolog) [Novolog Flexpen 12 units SQ TID 09/10/17 -] Atorvastatin Ca [Lipitor] 40 mg PO HS #30 tablet 09/21/17 Gabapentin [Neurontin -] 1 tab PO BID 10/21/17 Lactobacillus Acidophilus [Bacid -] 1 tab PO DAILY #30 tab 10/27/17 Amlodipine Besylate [Norvasc -] 10 mg PO DAILY 11/06/17 Lorazepam [Ativan] 2 mg PO DAILY PRN 11/06/17 Oxycodone HCl/Acetaminophen 1 each PO BID PRN 11/06/17 [Oxycodone-Acetaminophen 5-325] Paroxetine HCl 10 mg PO DAILY 11/06/17 Sulfamethoxazole/Trimethoprim 1 tab PO BID 11/06/17 [Bactrim Ds -] REVIEW OF SYSTEMS CONSTITUTIONAL: Absent: fever, chills, diaphoresis, generalized weakness, malaise, loss of appetite, weight change HEENT: Absent: rhinorrhea, nasal congestion, throat pain, throat swelling, difficulty swallowing, mouth swelling, ear pain, eye pain, visual changes CARDIOVASCULAR: Absent: chest pain, syncope, palpitations, irregular heart rate, lightheadedness , peripheral edema RESPIRATORY: Absent: cough, shortness of breath, dyspnea with exertion, orthopnea, wheezing, stridor, hemoptysis GASTROINTESTINAL: Absent: abdominal pain, abdominal distension, nausea, vomiting, diarrhea, constipation, melena, hematochezia GENITOURINARY: Absent: dysuria, frequency, urgency, hesitancy, hematuria, flank pain, genital pain MUSCULOSKELETAL: Present: Left foot pain Absent: myalgia, arthralgia, joint swelling, back pain, neck pain SKIN: Absent: rash, itching, pallor HEMATOLOGIC/IMMUNOLOGIC: Absent: easy bleeding, easy bruising, lymphadenopathy, frequent infections ENDOCRINE: Absent: unexplained weight gain, unexplained weight loss, heat intolerance, cold intolerance NEUROLOGIC: Absent: headache, focal weakness or paresthesias, dizziness, unsteady gait, seizure, mental status changes, bladder or bowel incontinence PSYCHIATRIC: Absent: anxiety, depression, suicidal or homicidal ideation, hallucinations. PHYSICAL EXAMINATION Vital Signs - 24 hr 3 11/06/17 11/07/17 21:58 03:45 Temperature 98.4 F 98.3 F Pulse Rate 87 Pulse Rate [ 78 Apical] Respiratory 19 18 Rate Blood Pressure 146/87 Blood Pressure 139/71 [Right Arm] O2 Sat by Pulse 100 100 Oximetry (%) GENERAL: Awake, alert, and fully oriented, in no acute distress. HEAD: Normal with no signs of trauma. EYES: Pupils equal, round and reactive to light, extraocular movements intact, sclera anicteric, conjunctiva clear. No lid lag. EARS, NOSE, THROAT: Ears normal, nares patent, oropharynx clear without exudates. Moist mucous membranes. NECK: Normal range of motion, supple without lymphadenopathy, JVD, or masses. LUNGS: Breath sounds equal, clear to auscultation bilaterally. No wheezes, and no crackles. No accessory muscle use. HEART: Regular rate and rhythm, normal S1 and S2 without murmur, rub or gallop. ABDOMEN: Soft, nontender, not distended, normoactive bowel sounds, no guarding, no rebound, no masses. No hepatomegaly or splenomegaly. MUSCULOSKELETAL: Normal range of motion at all joints. No bony deformities or tenderness. No CVA tenderness. UPPER EXTREMITIES: 2+ pulses, warm, well-perfused. No cyanosis. No clubbing. No peripheral edema. LOWER EXTREMITIES: R BKA, warm, well-perfused. No calf tenderness. No peripheral edema. left foot cool, diminished pedal pulse, 1st, 3-5th toes with gangrene NEUROLOGICAL: Cranial nerves II-XII intact. Normal speech. Normal gait. PSYCHIATRIC: Cooperative. Good eye contact. Appropriate mood and affect. SKIN: Warm, dry, normal turgor, no rashes or lesions noted, normal capillary refill. Laboratory Results - last 24 hr 3 11/07/17 11/07/17 11/07/17 00:45 00:45 00:45 WBC 9.3 RBC 3.59 L Hgb 10.4 L Hct 31.5 L MCV 87.8 MCH 28.8 MCHC 32.9 RDW 14.3 Plt Count 766 H D MPV 7.4 L Neutrophils % 70.2 Lymphocytes % 20.0 Monocytes % 5.8 Eosinophils % 3.1 Basophils % 0.9 PT with INR 12.50 INR 1.11 Sodium 141 Potassium 4.2 Chloride 110 H Carbon Dioxide 24 Anion Gap 7 L BUN 11 Creatinine 1.5 H Random Glucose 173 H Calcium 7.5 L Blood Type Antibody Screen ECG normal sinus rhythm vent rate 6, QTC [address]/T changes ASSESSMENT/PLAN: 52yF with PMH HTN, HLD, PAD, DM, asthma, pancreatitis, pyelonephritis, s/p L tibial artery angioplasty 10/08/17, R BKA 2016 presented to the ED with gangrene of left toes; unable to tolerate pain. Gangrene L toes - blood cultures ordered - vanc and zosyn ordered - vasc consult - ID consult - gunjan increased to 600 tid on last admission, cont same - duloxetine added last admission, will cont same - oxycodone for pain - ASA and plavix held in anticipation OR, restart if not going to OR PATRICIA - hold HCTZ/lasix - trial gentle IV hydration - renal consult if not improving - CMP @ 6am HTN/HLD - recent med changes after last hospitalization here not taken into account at [facility] - will cont lopressor and dc amlodipine as per DC instructions 10/29 - hold HCTZ / lasix due to PATRICIA DM - pt states she only takes insulin "as needed" - BGM AC/HS with novolog SS asthma - asymptomatic - monitor for s/s acute exac and treat promptly DVT PPX - heparin 5000u TID FEN - NS @ 50cc/hr - CMP in am - diabetic diet as tolerated Dispo: Pt currently requires further inpatient management of her emergent condition. Visit type - Emergency Visit Emergency Visit: Yes ED Registration Date: 11/06/17 Care time: The patient presented to the Emergency Department on the above date and was hospitalized for further evaluation of their emergent condition. - New Patient This patient is new to me today: Yes Date on this admission: 11/07/17 - Critical Care Critical Care patient: No Hospitalist Screening - Colonoscopy Questionnaire Colonoscopy Questionnaire: Colonoscopy Questionnaire - Patient: 50 - 75 years old and never had a screening colonoscopy: Unknown History of colon or rectal polyps, or CA: Unknown History of IBD, Crohn's disease or UC: Unknown History of abdominal radiation therapy as a child: Unknown - Relative: 1 with colon or rectal CA, or polyps at age 60 or younger: Unknown Colon or rectal CA diagnosed at age 45 or younger: Unknown Multiple relatives with colon or rectal CA: Unknown - Outcome: Screening Result: Negative Screen
[2017-11-07] MEDS: SODIUM CHLORIDE 1,000 ML IV SCH ×2 (04:23→17:21)
[2017-11-07] MEDS: oxyCODONE HCL 5 MG TABLET PO PRN ×3 (04:24→16:55)
[2017-11-07 05:28] VITALS: BMI 25.8
[2017-11-07] MEDS: HEPARIN NA (PORCINE) 5,000 UNITS/ML 1ML VIAL SQ SCH ×3 (05:32→21:26)
[2017-11-07] MEDS: GABAPENTIN 300 MG CAPSULE (FP) PO SCH ×3 (05:37→21:26)
[2017-11-07] MEDS ORDERED: PT OWN MED DRAWER 7, Y5N ONE (09:04)
[2017-11-07] MEDS: METOPROLOL TARTRATE 25 MG TABLET (FP) PO SCH ×2 (09:08→21:26)
[2017-11-07] MEDS: LACTOBACILLUS ACIDOPHILUS 1 TABLET PO SCH (09:08)
[2017-11-07] MEDS: DULoxetine HCL 20 MG CAPSULE.DR (FP) PO SCH (09:08)
[2017-11-07] MEDS: POLYETHYLENE GLYCOL 3350 119 GM BTL PO SCH (09:09)
--- NOTE | 2017-11-07 09:09 | PN ---
Progress Note, Physician - Current Medication List Current Medications: Active Medications Atorvastatin Calcium (Lipitor -) 40 mg PO HS [facility] Duloxetine HCl (Cymbalta -) 20 mg PO DAILY [facility] Gabapentin (Neurontin -) 600 mg PO TID [facility] Last Admin: 11/07/17 05:37 Dose: 600 mg Heparin Sodium (Porcine) (Heparin -) 5,000 unit SQ TID [facility] Last Admin: 11/07/17 05:32 Dose: 5,000 unit Sodium Chloride (Normal Saline -) 1,000 mls @ 50 mls/hr IV ASDIR [facility] Stop: 11/08/17 03:27 Last Admin: 11/07/17 04:23 Dose: 50 mls/hr Insulin Aspart (Novolog Vial Sliding Scale -) 1 vial SQ HS [facility] PRN Reason: Protocol Insulin Aspart (Novolog Vial Sliding Scale -) 1 vial SQ TIDAC [facility] PRN Reason: Protocol Lactobacillus Acidophilus (Bacid -) 1 tab PO DAILY [facility] Metoprolol Tartrate (Lopressor -) 25 mg PO BID [facility] Oxycodone HCl (Roxicodone -) 5 mg PO Q4H PRN PRN Reason: PAIN LEVEL 4 - 6 Oxycodone HCl (Roxicodone -) 10 mg PO Q4H PRN PRN Reason: PAIN LEVEL 7 - 10 Last Admin: 11/07/17 04:24 Dose: 10 mg Polyethylene Glycol (Miralax (For Daily Use) -) 17 gm PO DAILY [facility] - Objective Vital Signs: Vital Signs Temperature 98.9 F 11/07/17 05:05 Pulse Rate 86 11/07/17 05:05 Respiratory Rate 18 11/07/17 05:05 Blood Pressure 157/87 11/07/17 05:05 O2 Sat by Pulse Oximetry (%) 100 11/07/17 05:05 Labs: CBC, BMP 11/07/17 00:45 11/07/17 00:45 INR, PTT INR 1.11 (0.82-1.09) 11/07/17 00:45 Problem List - Problems (1) Gangrene associated with diabetes mellitus Assessment/Plan: 52yF with PMH HTN, HLD, PAD, DM, asthma, pancreatitis, pyelonephritis, s/p L tibial artery angioplasty 10/08/17, R BKA 2016 presented to the ED with gangrene of left toes; unable to tolerate pain. -Gangrene L toes - blood cultures ordered - vanc and zosyn ordered - vasc consult - ID consult - gunjan increased to 600 tid on last admission, cont same - duloxetine added last admission, will cont same - oxycodone for pain - ASA and plavix held in anticipation OR, restart if not going to OR Code(s): E11.52 - TYPE 2 DIABETES W DIABETIC PERIPHERAL ANGIOPATHY W GANGRENE (2) PAD (peripheral artery disease) Assessment/Plan: ABOVE Code(s): I73.9 - PERIPHERAL VASCULAR DISEASE, UNSPECIFIED (3) CKD (chronic kidney disease) Assessment/Plan: -PATRICIA - hold HCTZ/lasix - trial gentle IV hydration - renal consult if not improving - CMP @ 6am Code(s): N18.9 - CHRONIC KIDNEY DISEASE, UNSPECIFIED (4) Diabetes Assessment/Plan: - pt states she only takes insulin "as needed" - BGM AC/HS with novolog SS Code(s): E11.9 - TYPE 2 DIABETES MELLITUS WITHOUT COMPLICATIONS Qualifiers: Diabetes mellitus type: type 2 Diabetes mellitus complication status: with circulatory complication (5) Hypertension Assessment/Plan: - recent med changes after last hospitalization here not taken into account at [facility] - will cont lopressor and dc amlodipine as per DC instructions 10/29 - hold HCTZ / lasix due to PATRICIA Code(s): I10 - ESSENTIAL (PRIMARY) HYPERTENSION
--- NOTE | 2017-11-07 10:12 | PN ---
Progress Note (short form) - Note Progress Note: ID Consult dictated Dry gangrene L foot No evidence of secondary infection Surgical evaluation Observe off antibiotics
--- NOTE | 2017-11-07 10:39 | CONS ---
DATE OF CONSULTATION: 11/07/2017 The patient is a 52-year-old female history of diabetes mellitus, peripheral vascular disease, gangrene of the left foot, now evaluated for persistent gangrene of the left foot. Patient has had multiple recent hospitalizations at [facility] and elsewhere. She returns to the hospital with the complaints of worsening foot pain. She was recently admitted with foot pain, secondary to gangrene of the toes of the left foot and she was advised [id number]. She was treated with a course of IV antibiotics. She was discharged to home on October 29, 2017. In the interim, she was hospitalized at [facility] for the same complaint. She now returns with increasing pain. She denies any purulent drainage from the foot. No associated fever or chills. PAST MEDICAL HISTORY: Positive for diabetes mellitus, peripheral vascular disease, hypertension, hyperlipidemia. PAST SURGICAL HISTORY: Status post right [id number]-amputation. ALLERGIES: No known allergies. SYSTEMS REVIEW: Neurologic: No loss of consciousness, seizure activity, or focal weakness. Cardiac: Negative chest pain or palpitations. Respiratory: Negative cough or sputum production. Gastrointestinal: Negative vomiting or diarrhea. LABORATORY DATA: White count 9.3, hematocrit 31.5, platelet count 766, BUN 11, creatinine 1.5. Blood cultures are pending. PHYSICAL EXAMINATION: General: On exam, she is awake and alert. She is not acutely toxic-appearing. Vitals: Temperature 98.9, blood pressure 157/87, pulse 86, regular, respirations 18 per minute. HEENT: Sclera anicteric. Heart: Sounds S1, S2. Lungs: Clear. Abdomen: Soft, no tenderness elicited, obese. Extremities: Left foot with dry gangrene involving the 2nd, 3rd, and tip of the 4th toe. There is 1+ swelling. No erythema or purulent discharge. IMPRESSION: 1. Dry gangrene of the left foot. 2. Diabetes mellitus. 3. Peripheral vascular disease. 4. Status post right [id number]. At the present time, there does not appear to be a super imposed infection. No evidence of systemic sepsis. Will observe off antibiotic therapy. Surgical follow up. Local wound care. Thank you for the kind referral. DELMI BLUM M.D. [id number]
[2017-11-07] MEDS: INSULIN SLIDING SCALE (NOVOLOG) 1 VIAL SQ SCH ×3 (11:51→21:30)
--- NOTE | 2017-11-07 14:48 | CON.CARD ---
Consult Consult Specialty:: Cardiology Reason for Consultation:: Preop for toe amputation - History of Present Illness History of Present Illness: 52 F with DM< PVD sp Rt amputation, HTN and left sided toe infections. She is being considered for toe amputations. There is a history of presumed CAD with lateral wall hypokinesis on her recent echocardiogram in July which was managed medically. She has a history of intermittent atypical chest pain. Is not ambulatory and wheelchair dependent. Since this admission there has been no chest pain. - History Source History Provided By: Patient, Medical Record Limitations to Obtaining History: No Limitations - Past Medical History CLIENT SUCCESS SPECIALIST: Yes: CVA Cardio/Vascular: Yes: HTN, Other (PAD) Pulmonary: Yes: Asthma Gastrointestinal: Yes: Pancreatitis Hepatobiliary: Yes: Other (ALCOHOLISM STOPPED ONE YEAR AGO) Renal/: Yes: Renal Inusuff, Other (PYLEONEPHRITIS RECENTLY AT [facility]) Endocrine: Yes: Diabetes Mellitus - Past Surgical History Past Surgical History: Yes: Cholecystectomy - Alcohol/Substance Use Hx Alcohol Use: No - Smoking History Smoking history: Current every day smoker Have you smoked in the past 12 months: Yes Aproximately how many cigarettes per day: 2 - Social History Usual Living Arrangement: With Significant Other ADL: Support Services Home Medications - Allergies Allergies/Adverse Reactions: Allergies Allergy/AdvReac Type Severity Reaction Status Date / Time No Known Allergies Allergy Verified 11/06/17 22:01 - Home Medications Home Medications: Ambulatory Orders Aspirin [ASA -] 81 mg PO DAILY 05/04/15 Hydrochlorothiazide [Hctz -] 12.5 mg PO DAILY cap 09/08/16 Clopidogrel Bisulfate [Plavix -] 75 mg PO DAILY 09/10/17 Insulin (Novolog) [Novolog Flexpen -] 12 units SQ TID 09/10/17 Atorvastatin Ca [Lipitor] 40 mg PO HS #30 tablet 09/21/17 Gabapentin [Neurontin -] 1 tab PO BID 10/21/17 Lactobacillus Acidophilus [Bacid -] 1 tab PO DAILY #30 tab 10/27/17 Amlodipine Besylate [Norvasc -] 10 mg PO DAILY 11/06/17 Lorazepam [Ativan] 2 mg PO DAILY PRN 11/06/17 Oxycodone HCl/Acetaminophen [Oxycodone-Acetaminophen 5-325] 1 each PO BID PRN Paroxetine HCl 10 mg PO DAILY 11/06/17 Sulfamethoxazole/Trimethoprim [Bactrim Ds -] 1 tab PO BID 11/06/17 Review of Systems - Review of Systems Constitutional: denies: Chills, Diaphoresis, Fever Eyes: reports: No Symptoms HENT: reports: No Symptoms Neck: reports: No Symptoms Cardiovascular: denies: Chest Pain, Edema, Palpitations, Shortness of Breath Respiratory: reports: Exercise Intolerance. denies: Cough Gastrointestinal: reports: No Symptoms Neurological: reports: No Symptoms Endocrine: reports: No Symptoms Vital Signs: Vital Signs Temperature 98.1 F 11/07/17 09:00 Pulse Rate 94 H 11/07/17 09:00 Respiratory Rate 20 11/07/17 09:00 Blood Pressure 154/106 11/07/17 09:00 O2 Sat by Pulse Oximetry (%) 100 11/07/17 05:05 Constitutional: Yes: Well Nourished, Calm Eyes: Yes: Conjunctiva Clear, EOM Intact HENT: Yes: Atraumatic, Normocephalic Neck: Yes: Supple, Trachea Midline Respiratory: Yes: Regular, CTA Bilaterally Gastrointestinal: Yes: Normal Bowel Sounds, Soft Cardiovascular: Yes: Regular Rate and Rhythm. No: Gallop, Rub JVD: No Carotid Bruit: No Heart Sounds: Yes: S1, S2 Murmur: No: Systolic Murmur, Diastolic Murmur Extremities: Yes: Amputation Edema: No - Other Data Labs, Other Data: CBC, BMP 11/07/17 00:45 11/07/17 00:45 INR, PTT INR 1.11 (0.82-1.09) 11/07/17 00:45 Imaging - Results Chest X-ray: Report Reviewed Problem List - Problems (1) Dry gangrene Code(s): I96 - GANGRENE, NOT ELSEWHERE CLASSIFIED (2) PAD (peripheral artery disease) Code(s): I73.9 - PERIPHERAL VASCULAR DISEASE, UNSPECIFIED (3) Pre-op evaluation Code(s): Z01.818 - ENCOUNTER FOR OTHER PREPROCEDURAL EXAMINATION Assessment/Plan 52 F with DM and PVD. Presumed to have CAD and managed medically. An echocardiogram in July showed moderate lateral wall hypokinesis with preserved EF. There has historically been intermittent chest pain mostly atypical and at times reproducible. She is being considered for toe amputation. Continue with metoprolol and statin. Control BP and resume Amlodipine. Check ECG. Patient is at moderate risk for toe amputation.
--- NOTE | 2017-11-07 14:54 | CONSULT ---
Consult Reason for Consultation:: left foot gangrene . S/P angoplasty of of TP trunk last month. Pt has AT runoff into forefoot. 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: Yes: CVA Cardio/Vascular: Yes: HTN, Other (PAD) Pulmonary: Yes: Asthma Gastrointestinal: Yes: Pancreatitis Hepatobiliary: Yes: Other (ALCOHOLISM STOPPED ONE YEAR AGO) Renal/: Yes: Renal Inusuff, Other (PYLEONEPHRITIS RECENTLY AT [facility]) Endocrine: Yes: Diabetes Mellitus - Past Surgical History Past Surgical History: Yes: Cholecystectomy - Alcohol/Substance Use Hx Alcohol Use: No - Smoking History Smoking history: Current every day smoker Have you smoked in the past 12 months: Yes Aproximately how many cigarettes per day: 2 - Social History Usual Living Arrangement: With Significant Other ADL: Support Services Home Medications - Allergies Allergies/Adverse Reactions: Allergies Allergy/AdvReac Type Severity Reaction Status Date / Time No Known Allergies Allergy Verified 11/06/17 22:01 - Home Medications Home Medications: Ambulatory Orders Aspirin [ASA -] 81 mg PO DAILY 05/04/15 Hydrochlorothiazide [Hctz -] 12.5 mg PO DAILY cap 09/08/16 Clopidogrel Bisulfate [Plavix -] 75 mg PO DAILY 09/10/17 Insulin (Novolog) [Novolog Flexpen -] 12 units SQ TID 09/10/17 Atorvastatin Ca [Lipitor] 40 mg PO HS #30 tablet 09/21/17 Gabapentin [Neurontin -] 1 tab PO BID 10/21/17 Lactobacillus Acidophilus [Bacid -] 1 tab PO DAILY #30 tab 10/27/17 Amlodipine Besylate [Norvasc -] 10 mg PO DAILY 11/06/17 Lorazepam [Ativan] 2 mg PO DAILY PRN 11/06/17 Oxycodone HCl/Acetaminophen [Oxycodone-Acetaminophen 5-325] 1 each PO BID PRN Paroxetine HCl 10 mg PO DAILY 11/06/17 Sulfamethoxazole/Trimethoprim [Bactrim Ds -] 1 tab PO BID 11/06/17 Review of Systems - Review of Systems Constitutional: reports: No Symptoms Eyes: reports: No Symptoms HENT: reports: No Symptoms Neck: reports: No Symptoms Cardiovascular: reports: No Symptoms Respiratory: reports: No Symptoms Gastrointestinal: reports: No Symptoms Genitourinary: reports: No Symptoms Breasts: reports: No Symptoms Reported Musculoskeletal: reports: No Symptoms Integumentary: reports: No Symptoms Neurological: reports: No Symptoms Endocrine: reports: No Symptoms Hematology/Lymphatic: reports: No Symptoms Psychiatric: reports: No Symptoms Physical Exam Vital Signs: Vital Signs Temperature 98.1 F 11/07/17 09:00 Pulse Rate 94 H 11/07/17 09:00 Respiratory Rate 20 11/07/17 09:00 Blood Pressure 154/106 11/07/17 09:00 O2 Sat by Pulse Oximetry (%) 100 11/07/17 05:05 Constitutional: Yes: Well Nourished Eyes: Yes: WNL HENT: Yes: WNL Neck: Yes: WNL Cardiovascular: Yes: WNL Respiratory: Yes: WNL Gastrointestinal: Yes: WNL ...Rectal Exam: Yes: WNL Renal/: Yes: WNL Musculoskeletal: Yes: WNL Extremities: Yes: Other (left forefoot gangrene.) Integumentary: Yes: WNL Labs: CBC, BMP 11/07/17 00:45 11/07/17 00:45 Assessment/Plan Left foot gangrene 1. Spoke to pt extensively about her circulation. She was just admitted to [facility] essentially for pain control. 2 . Pt has been speaking to her family about her next steps. 3. I explained to be truly pain free -- she would need a bka and prosthesis thereafter. Pt agreeing to bka. Please clear from medical and cardiology standpoint for bka. Jose Manzo DO
[2017-11-07] MEDS ORDERED: INSULIN (NOVOLOG) ASPART 100 UNITS/ML 10ML VIAL ONE (20:20)
[2017-11-07] MEDS: ATORVASTATIN CA 40 MG TABLET (FP) PO SCH (21:26)
[2017-11-08] MEDS: oxyCODONE HCL 5 MG TABLET PO PRN ×4 (02:37→18:33)
[2017-11-08] MEDS: HEPARIN NA (PORCINE) 5,000 UNITS/ML 1ML VIAL SQ SCH ×3 (05:51→21:56)
[2017-11-08] MEDS: GABAPENTIN 300 MG CAPSULE (FP) PO SCH ×3 (05:51→21:54)
[2017-11-08] MEDS: INSULIN SLIDING SCALE (NOVOLOG) 1 VIAL SQ SCH ×4 (06:08→21:56)
[2017-11-08 09:53] LABS: BASO % 1.4 % (0-2.0); EOS % 3.2 % (0-4.5); HEMATOCRIT 31.5 % (32.4-45.2); HEMOGLOBIN 10.2 GM/dL (10.7-15.3); LYMPH % 22.2 % (8-40); MCH 28.5 pg (25.7-33.7); MCHC 32.5 g/dl (32.0-36.0); MEAN CELL VOLUME 87.7 fl (80-96); MEAN PLT VOLUME 7.2 fl (7.5-11.1); MONO % 5.9 % (3.8-10.2); NEUT % 67.3 % (42.8-82.8); PLATELET COUNT 817 K/MM3 (134-434); RBC 3.59 M/mm3 (3.60-5.2); RDW 14.6 % (11.6-15.6); WHITE BLOOD COUNT 8.2 K/mm3 (4.0-10.0)
[2017-11-08] MEDS ORDERED: PT OWN MED DRAWER 7, Y5N ONE (09:54)
[2017-11-08] MEDS: DULoxetine HCL 20 MG CAPSULE.DR (FP) PO SCH (09:58)
[2017-11-08] MEDS: METOPROLOL TARTRATE 25 MG TABLET (FP) PO SCH ×2 (09:58→21:54)
[2017-11-08] MEDS: LACTOBACILLUS ACIDOPHILUS 1 TABLET PO SCH (09:58)
[2017-11-08] MEDS: POLYETHYLENE GLYCOL 3350 119 GM BTL PO SCH (09:59)
[2017-11-08 10:22] LABS: ALBUMIN 0.8 g/dl (3.4-5.0); ALK PHOS 230 U/L (45-117); ANION GAP 6 (8-16); BILIRUBIN,TOTAL 0.1 mg/dL (0.2-1.0); BLOOD UREA NITROGEN 8 mg/dL (7-18); CHLORIDE 115 mmol/L (98-107); CO2 24 mmol/L (21-32); CREATININE 1.3 mg/dL (0.55-1.02); GLUCOSE,RANDOM 181 mg/dL (74-106); SGOT/AST 15 U/L (15-37); SGPT/ALT 7 U/L (12-78); SODIUM 145 mmol/L (136-145); TOT PROT 4.7 g/dl (6.4-8.2)
--- NOTE | 2017-11-08 11:06 | PN ---
Progress Note, Physician - Current Medication List Current Medications: Active Medications Atorvastatin Calcium (Lipitor -) 40 mg PO HS [facility] Last Admin: 11/07/17 21:26 Dose: 40 mg Duloxetine HCl (Cymbalta -) 20 mg PO DAILY [facility] Last Admin: 11/08/17 09:58 Dose: 20 mg Gabapentin (Neurontin -) 600 mg PO TID [facility] Last Admin: 11/08/17 05:51 Dose: 600 mg Heparin Sodium (Porcine) (Heparin -) 5,000 unit SQ TID [facility] Last Admin: 11/08/17 05:51 Dose: 5,000 unit Insulin Aspart (Novolog Vial Sliding Scale -) 1 vial SQ HS [facility] PRN Reason: Protocol Last Admin: 11/07/17 21:30 Dose: Not Given Insulin Aspart (Novolog Vial Sliding Scale -) 1 vial SQ TIDAC [facility] PRN Reason: Protocol Last Admin: 11/08/17 06:08 Dose: Not Given Lactobacillus Acidophilus (Bacid -) 1 tab PO DAILY [facility] Last Admin: 11/08/17 09:58 Dose: 1 tab Metoprolol Tartrate (Lopressor -) 25 mg PO BID [facility] Last Admin: 11/08/17 09:58 Dose: 25 mg Oxycodone HCl (Roxicodone -) 5 mg PO Q4H PRN PRN Reason: PAIN LEVEL 4 - 6 Oxycodone HCl (Roxicodone -) 10 mg PO Q4H PRN PRN Reason: PAIN LEVEL 7 - 10 Last Admin: 11/08/17 10:00 Dose: 10 mg Polyethylene Glycol (Miralax (For Daily Use) -) 17 gm PO DAILY [facility] Last Admin: 11/08/17 09:59 Dose: 17 gm - Objective Vital Signs: Vital Signs Temperature 98.8 F 11/08/17 06:48 Pulse Rate 75 11/08/17 06:48 Respiratory Rate 18 11/08/17 06:48 Blood Pressure 189/78 11/08/17 06:48 O2 Sat by Pulse Oximetry (%) 98 11/07/17 21:00 Cardiovascular: Yes: S1, S2 Respiratory: Yes: Regular, CTA Bilaterally Gastrointestinal: Yes: Normal Bowel Sounds, Soft Extremities: Yes: Amputation, Other (gangrene) Labs: CBC, BMP 11/08/17 09:26 11/08/17 09:26 INR, PTT INR 1.11 (0.82-1.09) 11/07/17 00:45 Problem List - Problems (1) Gangrene associated with diabetes mellitus Assessment/Plan: 52yF with PMH HTN, HLD, PAD, DM, asthma, pancreatitis, pyelonephritis, s/p L tibial artery angioplasty 10/08/17, R BKA 2016 presented to the ED with gangrene of left toes; unable to tolerate pain. -Gangrene L toes - blood cultures ordered - vanc and zosyn ordered - vasc consult - ID consult - gunjan increased to 600 tid on last admission, cont same - duloxetine added last admission, will cont same - oxycodone for pain - ASA and plavix held in anticipation OR, restart if not going to OR Code(s): E11.52 - TYPE 2 DIABETES W DIABETIC PERIPHERAL ANGIOPATHY W GANGRENE (2) PAD (peripheral artery disease) Assessment/Plan: ABOVE Code(s): I73.9 - PERIPHERAL VASCULAR DISEASE, UNSPECIFIED (3) CKD (chronic kidney disease) Assessment/Plan: -PATRICIA - hold HCTZ/lasix - trial gentle IV hydration - renal consult if not improving - CMP @ 6am Code(s): N18.9 - CHRONIC KIDNEY DISEASE, UNSPECIFIED (4) Diabetes Assessment/Plan: - pt states she only takes insulin "as needed" - BGM AC/HS with novolog SS Code(s): E11.9 - TYPE 2 DIABETES MELLITUS WITHOUT COMPLICATIONS Qualifiers: Diabetes mellitus type: type 2 Diabetes mellitus complication status: with circulatory complication (5) Hypertension Assessment/Plan: - recent med changes after last hospitalization here not taken into account at [facility] - will cont lopressor and dc amlodipine as per DC instructions 10/29 - hold HCTZ / lasix due to PATRICIA Code(s): I10 - ESSENTIAL (PRIMARY) HYPERTENSION
[2017-11-08] MEDS ORDERED: ACETAMINOPHEN 325 MG TABLET (FP) ONE (13:38)
--- NOTE | 2017-11-08 14:12 | PN ---
Progress Note, Physician Chief Complaint: No complaints,. History of Present Illness: 52 F with DM< PVD sp Rt amputation, HTN and left sided toe infections. She is being considered for toe amputations. There is a history of presumed CAD with lateral wall hypokinesis on her recent echocardiogram in July which was managed medically. She has a history of intermittent atypical chest pain. Is not ambulatory and wheelchair dependent. Since this admission there has been no chest pain. - Current Medication List Current Medications: Active Medications Acetaminophen (Tylenol -) 650 mg PO Q4H PRN PRN Reason: PAIN SCALE 7-10 Atorvastatin Calcium (Lipitor -) 40 mg PO HS [facility] Last Admin: 11/07/17 21:26 Dose: 40 mg Duloxetine HCl (Cymbalta -) 20 mg PO DAILY [facility] Last Admin: 11/08/17 09:58 Dose: 20 mg Gabapentin (Neurontin -) 600 mg PO TID [facility] Last Admin: 11/08/17 13:43 Dose: 600 mg Heparin Sodium (Porcine) (Heparin -) 5,000 unit SQ TID [facility] Last Admin: 11/08/17 13:44 Dose: 5,000 unit Insulin Aspart (Novolog Vial Sliding Scale -) 1 vial SQ HS [facility] PRN Reason: Protocol Last Admin: 11/07/17 21:30 Dose: Not Given Insulin Aspart (Novolog Vial Sliding Scale -) 1 vial SQ TIDAC [facility] PRN Reason: Protocol Last Admin: 11/08/17 12:24 Dose: 3 units Lactobacillus Acidophilus (Bacid -) 1 tab PO DAILY [facility] Last Admin: 11/08/17 09:58 Dose: 1 tab Metoprolol Tartrate (Lopressor -) 25 mg PO BID [facility] Last Admin: 11/08/17 09:58 Dose: 25 mg Oxycodone HCl (Roxicodone -) 5 mg PO Q4H PRN PRN Reason: PAIN LEVEL 4 - 6 Oxycodone HCl (Roxicodone -) 10 mg PO Q4H PRN PRN Reason: PAIN SCALE 7-10 Polyethylene Glycol (Miralax (For Daily Use) -) 17 gm PO DAILY [facility] Last Admin: 11/08/17 09:59 Dose: 17 gm - Objective Vital Signs: Vital Signs Temperature 98.6 F 11/08/17 08:05 Pulse Rate 75 11/08/17 08:05 Respiratory Rate 20 11/08/17 08:05 Blood Pressure 169/84 11/08/17 08:05 O2 Sat by Pulse Oximetry (%) 98 11/07/17 21:00 Constitutional: Yes: Anxious, Moderate Distress (in pain) Eyes: Yes: Conjunctiva Clear HENT: Yes: Atraumatic, Normocephalic Neck: Yes: Supple, Trachea Midline Cardiovascular: Yes: Regular Rate and Rhythm, S1, S2. No: JVD Respiratory: Yes: Regular, CTA Bilaterally Gastrointestinal: Yes: Normal Bowel Sounds, Soft Edema: No Labs: CBC, BMP 11/08/17 09:26 11/08/17 09:26 INR, PTT INR 1.11 (0.82-1.09) 11/07/17 00:45 Problem List - Problems (1) Dry gangrene Code(s): I96 - GANGRENE, NOT ELSEWHERE CLASSIFIED (2) PAD (peripheral artery disease) Code(s): I73.9 - PERIPHERAL VASCULAR DISEASE, UNSPECIFIED (3) Pre-op evaluation Code(s): Z01.818 - ENCOUNTER FOR OTHER PREPROCEDURAL EXAMINATION Assessment/Plan 52 F with DM and PVD. Presumed to have CAD and managed medically. An echocardiogram in July showed moderate lateral wall hypokinesis with preserved EF. There has historically been intermittent chest pain mostly atypical and at times reproducible. She is being considered for toe amputation. Continue with metoprolol and statin. Control BP and resume Amlodipine. Started Amlodipine 5mg qd. Patient is at moderate risk for toe amputation.
[2017-11-08] MEDS: amLODIPine BESYLATE 5 MG TABLET (FP) PO SCH (16:53)
[2017-11-08] MEDS: ACETAMINOPHEN 325 MG TABLET (FP) PO PRN (18:34)
[2017-11-08] MEDS ORDERED: INSULIN (NOVOLOG) ASPART 100 UNITS/ML 10ML VIAL ONE (21:09)
[2017-11-08] MEDS: ATORVASTATIN CA 40 MG TABLET (FP) PO SCH (21:54)
[2017-11-09] MEDS: GABAPENTIN 300 MG CAPSULE (FP) PO SCH ×3 (05:58→20:59)
[2017-11-09] MEDS: HEPARIN NA (PORCINE) 5,000 UNITS/ML 1ML VIAL SQ SCH ×2 (05:58→14:50)
[2017-11-09] MEDS: INSULIN SLIDING SCALE (NOVOLOG) 1 VIAL SQ SCH ×4 (05:59→17:51)
[2017-11-09] MEDS: oxyCODONE HCL 5 MG TABLET PO PRN ×4 (06:53→20:56)
[2017-11-09] MEDS: ACETAMINOPHEN 325 MG TABLET (FP) PO PRN ×4 (06:56→20:59)
[2017-11-09] MEDS ORDERED: PT OWN MED DRAWER 7, Y5N ONE (10:42)
[2017-11-09] MEDS: amLODIPine BESYLATE 5 MG TABLET (FP) PO SCH (10:44)
[2017-11-09] MEDS: DULoxetine HCL 20 MG CAPSULE.DR (FP) PO SCH (10:44)
[2017-11-09] MEDS: LACTOBACILLUS ACIDOPHILUS 1 TABLET PO SCH (10:44)
[2017-11-09] MEDS: METOPROLOL TARTRATE 25 MG TABLET (FP) PO SCH (10:44)
[2017-11-09] MEDS: POLYETHYLENE GLYCOL 3350 119 GM BTL PO SCH (10:45)
--- NOTE | 2017-11-09 11:56 | PN ---
Progress Note, Physician Chief Complaint: patient seen and examined complaining of foot pain - Current Medication List Current Medications: Active Medications Acetaminophen (Tylenol -) 650 mg PO Q4H PRN PRN Reason: PAIN SCALE 7-10 Last Admin: 11/09/17 10:44 Dose: 650 mg Amlodipine Besylate (Norvasc -) 5 mg PO DAILY [facility] Last Admin: 11/09/17 10:44 Dose: 5 mg Atorvastatin Calcium (Lipitor -) 40 mg PO HS [facility] Last Admin: 11/08/17 21:54 Dose: 40 mg Duloxetine HCl (Cymbalta -) 20 mg PO DAILY [facility] Last Admin: 11/09/17 10:44 Dose: 20 mg Gabapentin (Neurontin -) 600 mg PO TID [facility] Last Admin: 11/09/17 05:58 Dose: 600 mg Heparin Sodium (Porcine) (Heparin -) 5,000 unit SQ TID [facility] Last Admin: 11/09/17 05:58 Dose: 5,000 unit Insulin Aspart (Novolog Vial Sliding Scale -) 1 vial SQ HS [facility] PRN Reason: Protocol Last Admin: 11/08/17 21:56 Dose: Not Given Insulin Aspart (Novolog Vial Sliding Scale -) 1 vial SQ TIDAC [facility] PRN Reason: Protocol Last Admin: 11/09/17 07:33 Dose: Not Given Lactobacillus Acidophilus (Bacid -) 1 tab PO DAILY [facility] Last Admin: 11/09/17 10:44 Dose: 1 tab Metoprolol Tartrate (Lopressor -) 25 mg PO BID [facility] Last Admin: 11/09/17 10:44 Dose: 25 mg Oxycodone HCl (Roxicodone -) 5 mg PO Q4H PRN PRN Reason: PAIN LEVEL 4 - 6 Oxycodone HCl (Roxicodone -) 10 mg PO Q4H PRN PRN Reason: PAIN SCALE 7-10 Last Admin: 11/09/17 10:44 Dose: 10 mg Polyethylene Glycol (Miralax (For Daily Use) -) 17 gm PO DAILY [facility] Last Admin: 11/09/17 10:45 Dose: Not Given - Objective Vital Signs: Vital Signs Temperature 98.9 F 11/09/17 06:00 Pulse Rate 78 11/09/17 06:00 Respiratory Rate 18 11/09/17 06:00 Blood Pressure 148/88 11/08/17 22:00 O2 Sat by Pulse Oximetry (%) 98 11/08/17 21:00 Constitutional: Yes: Calm Neck: Yes: Trachea Midline Cardiovascular: Yes: Regular Rate and Rhythm, S1, S2 Respiratory: Yes: CTA Bilaterally Gastrointestinal: Yes: Normal Bowel Sounds, Soft Extremities: Yes: Other (left foot gangrene BKA on right side) Labs: CBC, BMP 11/08/17 09:26 11/08/17 09:26 INR, PTT INR 1.11 (0.82-1.09) 11/07/17 00:45 Problem List - Problems (1) Foot pain, left Assessment/Plan: seen by vascular plan is for BKA- possible tmw cleared for the procedure neurotin TID dvt ppx Code(s): M79.672 - PAIN IN LEFT FOOT (2) CAD (coronary artery disease) Assessment/Plan: metoprolol, statin and norvasc cardiology on board Code(s): I25.10 - ATHSCL HEART DISEASE OF [place] CORONARY ARTERY W/O ANG PCTRS (3) Diabetes Assessment/Plan: sliding scale bgm [id number] Code(s): E11.9 - TYPE 2 DIABETES MELLITUS WITHOUT COMPLICATIONS Qualifiers: Diabetes mellitus type: type 2
--- NOTE | 2017-11-09 15:21 | PN ---
Progress Note, Physician History of Present Illness: seen and examined today in nad. no overnight events. no new complaints. - Current Medication List Current Medications: Active Medications Acetaminophen (Tylenol -) 650 mg PO Q4H PRN PRN Reason: PAIN SCALE 7-10 Last Admin: 11/09/17 10:44 Dose: 650 mg Amlodipine Besylate (Norvasc -) 5 mg PO DAILY [facility] Last Admin: 11/09/17 10:44 Dose: 5 mg Atorvastatin Calcium (Lipitor -) 40 mg PO HS [facility] Last Admin: 11/08/17 21:54 Dose: 40 mg Duloxetine HCl (Cymbalta -) 20 mg PO DAILY [facility] Last Admin: 11/09/17 10:44 Dose: 20 mg Gabapentin (Neurontin -) 600 mg PO TID [facility] Last Admin: 11/09/17 14:50 Dose: 600 mg Heparin Sodium (Porcine) (Heparin -) 5,000 unit SQ TID [facility] Last Admin: 11/09/17 14:50 Dose: 5,000 unit Insulin Aspart (Novolog Vial Sliding Scale -) 1 vial SQ [facility] PRN Reason: Protocol Last Admin: 11/08/17 21:56 Dose: Not Given Insulin Aspart (Novolog Vial Sliding Scale -) 1 vial SQ TIDAC [facility] PRN Reason: Protocol Last Admin: 11/09/17 12:01 Dose: 6 units Lactobacillus Acidophilus (Bacid -) 1 tab PO DAILY [facility] Last Admin: 11/09/17 10:44 Dose: 1 tab Metoprolol Tartrate (Lopressor -) 25 mg PO BID [facility] Last Admin: 11/09/17 10:44 Dose: 25 mg Oxycodone HCl (Roxicodone -) 10 mg PO Q4H PRN PRN Reason: PAIN SCALE 7-10 Last Admin: 11/09/17 10:44 Dose: 10 mg Polyethylene Glycol (Miralax (For Daily Use) -) 17 gm PO DAILY [facility] Last Admin: 11/09/17 10:45 Dose: Not Given - Objective Vital Signs: Vital Signs Temperature 99.0 F 11/09/17 10:00 Pulse Rate 89 11/09/17 10:00 Respiratory Rate 20 11/09/17 10:00 Blood Pressure 130/87 11/09/17 10:00 O2 Sat by Pulse Oximetry (%) 94 L 11/09/17 09:00 Constitutional: Yes: No Distress, Calm Eyes: Yes: Conjunctiva Clear, EOM Intact HENT: Yes: Atraumatic, Normocephalic Cardiovascular: Yes: Regular Rate and Rhythm, S1, S2. No: Bradycardia, Tachycardia, Pulse Irregular, Bruit, JVD, Gallop, Murmur, Rub, S3, S4, Varicosities Respiratory: Yes: Regular, CTA Bilaterally. No: Rales, Rhonchi, Wheezes Gastrointestinal: Yes: Normal Bowel Sounds, Soft. No: Distention, Tenderness Edema: No Peripheral Pulses WNL: No Neurological: Yes: Alert, Oriented Psychiatric: Yes: Alert, Oriented Labs: CBC, BMP 11/08/17 09:26 11/08/17 09:26 INR, PTT INR 1.11 (0.82-1.09) 11/07/17 00:45 Assessment/Plan 52 F with DM and PVD. Presumed to have CAD and managed medically. An echocardiogram in July showed moderate lateral wall hypokinesis with preserved EF. There has historically been intermittent chest pain mostly atypical and at times reproducible. She is planned for bka Awaiting surgery No clinical change since yesterday BP adequately controlled Cont metoprolol, statin, amlodipine
[2017-11-10] MEDS: HEPARIN NA (PORCINE) 5,000 UNITS/ML 1ML VIAL SQ SCH ×4 (00:36→21:25)
[2017-11-10] MEDS: ATORVASTATIN CA 40 MG TABLET (FP) PO SCH ×2 (00:36→21:26)
[2017-11-10] MEDS: METOPROLOL TARTRATE 25 MG TABLET (FP) PO SCH ×3 (00:37→21:26)
--- NOTE | 2017-11-10 00:37 | EKG ---
Test Reason : Blood Pressure : / mmHG Vent. Rate : 086 BPM Atrial Rate : 086 BPM P-R Int : 112 ms QRS Dur : 072 ms QT Int : 382 ms P-R-T Axes : 067 003 064 degrees QTc Int : 457 ms NORMAL SINUS RHYTHM LOW VOLTAGE QRS BORDERLINE ECG WHEN COMPARED WITH ECG OF 21-OCT-2017 14:18, NO SIGNIFICANT CHANGE WAS FOUND Confirmed by RM BOWLING MD ([id number]) on 11/10/2017 12:37:05 AM Referred By: Confirmed By:RM BOWLING MD
[2017-11-10] MEDS: INSULIN SLIDING SCALE (NOVOLOG) 1 VIAL SQ SCH ×5 (00:40→21:25)
[2017-11-10] MEDS: oxyCODONE HCL 5 MG TABLET PO PRN ×4 (01:22→21:26)
[2017-11-10] MEDS: ACETAMINOPHEN 325 MG TABLET (FP) PO PRN ×4 (01:22→21:26)
[2017-11-10] MEDS: GABAPENTIN 300 MG CAPSULE (FP) PO SCH ×3 (06:37→21:26)
[2017-11-10 10:01] LABS: BASO % 1.1 % (0-2.0); EOS % 3.9 % (0-4.5); HEMATOCRIT 26.2 % (32.4-45.2); HEMOGLOBIN 8.6 GM/dL (10.7-15.3); LYMPH % 31.2 % (8-40); MCH 29.1 pg (25.7-33.7); MCHC 32.9 g/dl (32.0-36.0); MEAN CELL VOLUME 88.6 fl (80-96); MEAN PLT VOLUME 7.8 fl (7.5-11.1); MONO % 8.1 % (3.8-10.2); NEUT % 55.7 % (42.8-82.8); PLATELET COUNT 747 K/MM3 (134-434); RBC 2.95 M/mm3 (3.60-5.2); RDW 14.5 % (11.6-15.6); WHITE BLOOD COUNT 9.7 K/mm3 (4.0-10.0)
[2017-11-10] MEDS ORDERED: PT OWN MED DRAWER 7, Y5N ONE ×2 (10:19→21:22)
[2017-11-10 10:20] LABS: ANION GAP 5 (8-16); BLOOD UREA NITROGEN 16 mg/dL (7-18); CALCIUM 7.6 mg/dL (8.5-10.1); CHLORIDE 113 mmol/L (98-107); CHOLESTEROL 138 mg/dL (50-200); CO2 24 mmol/L (21-32); GLUCOSE,RANDOM 126 mg/dL (74-106); POTASSIUM 4.9 mmol/L (3.5-5.1); SODIUM 142 mmol/L (136-145); TRIGLYCERIDES 91 mg/dL (35-160)
[2017-11-10] MEDS: DULoxetine HCL 20 MG CAPSULE.DR (FP) PO SCH (10:21)
[2017-11-10] MEDS: LACTOBACILLUS ACIDOPHILUS 1 TABLET PO SCH (10:21)
[2017-11-10] MEDS: amLODIPine BESYLATE 5 MG TABLET (FP) PO SCH (10:21)
[2017-11-10 10:22] LABS: HDL CHOLESTEROL 65 mg/dL (40-60)
[2017-11-10 10:23] LABS: ALK PHOS 210 U/L (45-117); BILIRUBIN,TOTAL 0.1 mg/dL (0.2-1.0); CREATININE 1.5 mg/dL (0.55-1.02); SGOT/AST 12 U/L (15-37); SGPT/ALT < 6 U/L (12-78); TOT PROT 4.3 g/dl (6.4-8.2)
[2017-11-10 10:27] LABS: ALBUMIN 0.8 g/dl (3.4-5.0)
[2017-11-10] MEDS: POLYETHYLENE GLYCOL 3350 119 GM BTL PO SCH (10:32)
--- NOTE | 2017-11-10 11:10 | PN ---
Progress Note, Physician Chief Complaint: patient seen and examined cleared for surgery for BKA - Current Medication List Current Medications: Active Medications Acetaminophen (Tylenol -) 650 mg PO Q4H PRN PRN Reason: PAIN SCALE 7-10 Last Admin: 11/10/17 06:37 Dose: 650 mg Amlodipine Besylate (Norvasc -) 5 mg PO DAILY [facility] Last Admin: 11/10/17 10:21 Dose: 5 mg Atorvastatin Calcium (Lipitor -) 40 mg PO HS [facility] Last Admin: 11/10/17 00:36 Dose: 40 mg Duloxetine HCl (Cymbalta -) 20 mg PO DAILY [facility] Last Admin: 11/10/17 10:21 Dose: 20 mg Gabapentin (Neurontin -) 600 mg PO TID [facility] Last Admin: 11/10/17 06:37 Dose: 600 mg Heparin Sodium (Porcine) (Heparin -) 5,000 unit SQ TID [facility] Last Admin: 11/10/17 06:37 Dose: 5,000 unit Insulin Aspart (Novolog Vial Sliding Scale -) 1 vial SQ HS [facility] PRN Reason: Protocol Last Admin: 11/10/17 00:40 Dose: 2 units Insulin Aspart (Novolog Vial Sliding Scale -) 1 vial SQ TIDAC [facility] PRN Reason: Protocol Last Admin: 11/10/17 06:35 Dose: Not Given Lactobacillus Acidophilus (Bacid -) 1 tab PO DAILY [facility] Last Admin: 11/10/17 10:21 Dose: 1 tab Metoprolol Tartrate (Lopressor -) 25 mg PO BID [facility] Last Admin: 11/10/17 10:21 Dose: 25 mg Oxycodone HCl (Roxicodone -) 10 mg PO Q4H PRN PRN Reason: PAIN SCALE 7-10 Last Admin: 11/10/17 06:37 Dose: 10 mg Polyethylene Glycol (Miralax (For Daily Use) -) 17 gm PO DAILY [facility] Last Admin: 11/10/17 10:32 Dose: 17 gm - Objective Vital Signs: Vital Signs Temperature 99.1 F 11/10/17 10:00 Pulse Rate 96 H 11/10/17 10:00 Respiratory Rate 18 11/10/17 10:00 Blood Pressure 136/95 11/10/17 10:00 O2 Sat by Pulse Oximetry (%) 94 L 11/09/17 09:00 Constitutional: Yes: Calm Neck: Yes: Trachea Midline Cardiovascular: Yes: Regular Rate and Rhythm, S1, S2 Respiratory: Yes: CTA Bilaterally Gastrointestinal: Yes: Normal Bowel Sounds, Soft Extremities: Yes: Other (left BKA right foot toe gangrene) Neurological: Yes: Alert, Oriented Labs: CBC, BMP 11/10/17 08:46 11/10/17 08:46 INR, PTT INR 1.11 (0.82-1.09) 11/07/17 00:45 Problem List - Problems (1) Foot pain, left Assessment/Plan: seen by vascular plan is for BKA- on per vascular NPO tmw night cleared for the procedure by cardiology neurotin TID dvt ppx Code(s): M79.672 - PAIN IN LEFT FOOT (2) CAD (coronary artery disease) Assessment/Plan: metoprolol, statin and norvasc cardiology on board Code(s): I25.10 - ATHSCL HEART DISEASE OF [place] CORONARY ARTERY W/O ANG PCTRS (3) Diabetes Assessment/Plan: sliding scale bgm [id number] Code(s): E11.9 - TYPE 2 DIABETES MELLITUS WITHOUT COMPLICATIONS Qualifiers: Diabetes mellitus type: type 2
[2017-11-10] MEDS ORDERED: INSULIN (NOVOLOG) ASPART 100 UNITS/ML 10ML VIAL ONE (17:36)
[2017-11-11] MEDS: oxyCODONE HCL 5 MG TABLET PO PRN ×3 (02:04→22:55)
[2017-11-11] MEDS: ACETAMINOPHEN 325 MG TABLET (FP) PO PRN ×4 (02:06→22:55)
[2017-11-11] MEDS: INSULIN SLIDING SCALE (NOVOLOG) 1 VIAL SQ SCH ×4 (06:51→22:58)
[2017-11-11] MEDS: HEPARIN NA (PORCINE) 5,000 UNITS/ML 1ML VIAL SQ SCH ×3 (08:23→22:55)
[2017-11-11] MEDS: GABAPENTIN 300 MG CAPSULE (FP) PO SCH ×3 (08:23→22:55)
[2017-11-11] MEDS ORDERED: PT OWN MED DRAWER 7, Y5N ONE (10:40)
[2017-11-11] MEDS: METOPROLOL TARTRATE 25 MG TABLET (FP) PO SCH ×2 (10:57→22:56)
[2017-11-11] MEDS: amLODIPine BESYLATE 5 MG TABLET (FP) PO SCH (10:57)
[2017-11-11] MEDS: LACTOBACILLUS ACIDOPHILUS 1 TABLET PO SCH (10:57)
[2017-11-11] MEDS: POLYETHYLENE GLYCOL 3350 119 GM BTL PO SCH (10:58)
[2017-11-11] MEDS: DULoxetine HCL 20 MG CAPSULE.DR (FP) PO SCH (10:58)
--- NOTE | 2017-11-11 11:02 | SPA.PREOP ---
- PRE-OP NOTE Dx: Lt foot gangrene Planned Procedure: BKA Lt leg Surgeon: Tata Manzo MD Consent: Will be obtained after surgeon explained all risks, benefits and alternatives. Opportunity for questions. Last Vital Signs Temp Pulse Resp BP Pulse Ox 99.1 F 79 20 155/87 95 11/11/17 07:37 11/11/17 07:37 11/11/17 07:37 11/11/17 07:37 11/10/17 09:00 Lab Results WBC 9.7 K/mm3 (4.0-10.0) 11/10/17 08:46 RBC 2.95 M/mm3 (3.60-5.2) L 11/10/17 08:46 Hgb 8.6 GM/dL (10.7-15.3) L D 11/10/17 08:46 Hct 26.2 % (32.4-45.2) L D 11/10/17 08:46 MCV 88.6 fl (80-96) 11/10/17 08:46 MCHC 32.9 g/dl (32.0-36.0) 11/10/17 08:46 RDW 14.5 % (11.6-15.6) 11/10/17 08:46 Plt Count 747 K/MM3 (134-434) H 11/10/17 08:46 Sodium 142 mmol/L (136-145) 11/10/17 08:46 Potassium 4.9 mmol/L (3.5-5.1) 11/10/17 08:46 Chloride 113 mmol/L (98-107) H 11/10/17 08:46 Carbon Dioxide 24 mmol/L (21-32) 11/10/17 08:46 Anion Gap 5 (8-16) L 11/10/17 08:46 BUN 16 mg/dL (7-18) 11/10/17 08:46 Creatinine 1.5 mg/dL (0.55-1.02) H 11/10/17 08:46 Random Glucose 126 mg/dL (74-106) H 11/10/17 08:46 Calcium 7.6 mg/dL (8.5-10.1) L 11/10/17 08:46 Blood Type O POSITIVE 11/07/17 01:18 Antibody Screen Negative 11/07/17 01:18 INR 1.11 (0.82-1.09) 11/07/17 00:45 - IMAGING Chest X-ray: Report Reviewed EKG: Report Reviewed - ASSESSMENT/PLAN 1. Make NPO after midnight except po meds 2. GI/DVT PPX 3. Medical optimization / clearance
--- NOTE | 2017-11-11 22:30 | PN ---
Progress Note, Physician Chief Complaint: Left toe gangrene PAD History of Present Illness: NAD, c/o pain LLE Seen by Cardiology for surgical clearance, moderate surgical risk - Current Medication List Current Medications: Active Medications Acetaminophen (Tylenol -) 650 mg PO Q4H PRN PRN Reason: PAIN SCALE 7-10 Last Admin: 11/11/17 17:00 Dose: 650 mg Amlodipine Besylate (Norvasc -) 10 mg PO DAILY [facility] Atorvastatin Calcium (Lipitor -) 40 mg PO HS [facility] Last Admin: 11/10/17 21:26 Dose: 40 mg Duloxetine HCl (Cymbalta -) 20 mg PO DAILY [facility] Last Admin: 11/11/17 10:58 Dose: 20 mg Gabapentin (Neurontin -) 600 mg PO TID [facility] Last Admin: 11/11/17 14:43 Dose: 600 mg Heparin Sodium (Porcine) (Heparin -) 5,000 unit SQ TID [facility] Last Admin: 11/11/17 14:43 Dose: 5,000 unit Insulin Aspart (Novolog Vial Sliding Scale -) 1 vial SQ HS [facility]; Protocol Last Admin: 11/10/17 21:25 Dose: Not Given Insulin Aspart (Novolog Vial Sliding Scale -) 1 vial SQ TIDAC [facility]; Protocol Last Admin: 11/11/17 16:59 Dose: Not Given Lactobacillus Acidophilus (Bacid -) 1 tab PO DAILY [facility] Last Admin: 11/11/17 10:57 Dose: 1 tab Metoprolol Tartrate (Lopressor -) 25 mg PO BID [facility] Last Admin: 11/11/17 10:57 Dose: 25 mg Oxycodone HCl (Roxicodone -) 10 mg PO Q4H PRN PRN Reason: PAIN SCALE 7-10 Last Admin: 11/11/17 17:00 Dose: 10 mg Polyethylene Glycol (Miralax (For Daily Use) -) 17 gm PO DAILY [facility] Last Admin: 11/11/17 10:58 Dose: Not Given - Objective Vital Signs: Vital Signs Temperature 99.1 F 11/11/17 21:37 Pulse Rate 83 11/11/17 21:37 Respiratory Rate 20 11/11/17 21:37 Blood Pressure 158/77 11/11/17 21:37 O2 Sat by Pulse Oximetry (%) 96 11/11/17 09:00 Constitutional: Yes: Well Nourished, Calm, Mild Distress (c/o pain) Cardiovascular: Yes: Regular Rate and Rhythm Respiratory: Yes: Regular Gastrointestinal: Yes: Normal Bowel Sounds, Soft Extremities: Yes: Cool (LLE) Peripheral Pulses WNL: No Peripheral Pulses: Left Doralis Pedis: 0 Neurological: Yes: Alert, Pre-Existing Deficit Psychiatric: Yes: Alert Labs: CBC, BMP 11/10/17 08:46 11/10/17 08:46 INR, PTT INR 1.11 (0.82-1.09) 11/07/17 00:45 Problem List - Problems (1) CAD (coronary artery disease) Assessment/Plan: -on Metoprolol 25 mg po daily -Atorvastatin 40 mg po HS -Amlodipine 5 mg po daily, would increase it to 10 mg daily to better control BP Code(s): I25.10 - ATHSCL HEART DISEASE OF [place] CORONARY ARTERY W/O ANG PCTRS (2) Foot pain, left Assessment/Plan: -Left BKA in AM -Seen by Vascular surgery -NPO past midnight -Cleared by Cardiology with moderate OR risk -Oxycodone 10 mg po Q4HPRN Code(s): M79.672 - PAIN IN LEFT FOOT (3) PAD (peripheral artery disease) Assessment/Plan: -Chronic -2/2 to uncontrolled diabetes -Seen by Vascular surgery -Planned LBKA in AM Code(s): I73.9 - PERIPHERAL VASCULAR DISEASE, UNSPECIFIED (4) Anemia Assessment/Plan: -2/2 chronic disease, CKD, as well as dilutional? -Stool OB -Iron profile, B12, Folate, Thyroid profile from last admission were normal -Repeat labs in AM -Transfuse if Hgb below 8.0 Code(s): D64.9 - ANEMIA, UNSPECIFIED (5) CKD (chronic kidney disease) Assessment/Plan: -Nephrology consult -close to baseline Code(s): N18.9 - CHRONIC KIDNEY DISEASE, UNSPECIFIED (6) Ischemic foot Code(s): I99.8 - OTHER DISORDER OF CIRCULATORY SYSTEM Assessment/Plan see problem list DVT prophylaxis Pt medically cleared for surgery with moderate OR risk
[2017-11-11] MEDS: ATORVASTATIN CA 40 MG TABLET (FP) PO SCH (22:55)
[2017-11-12] MEDS: HEPARIN NA (PORCINE) 5,000 UNITS/ML 1ML VIAL SQ SCH ×3 (06:10→21:48)
[2017-11-12] MEDS: GABAPENTIN 300 MG CAPSULE (FP) PO SCH ×3 (06:13→21:47)
[2017-11-12] MEDS: oxyCODONE HCL 5 MG TABLET PO PRN ×2 (06:13→14:22)
[2017-11-12] MEDS: INSULIN SLIDING SCALE (NOVOLOG) 1 VIAL SQ SCH ×4 (06:13→21:58)
[2017-11-12] MEDS: ACETAMINOPHEN 325 MG TABLET (FP) PO PRN (06:14)
[2017-11-12 08:08] LABS: HEMATOCRIT 29.1 % (32.4-45.2); HEMOGLOBIN 9.5 GM/dL (10.7-15.3); LYMPH % 22.1 % (8-40); MCHC 32.7 g/dl (32.0-36.0); MEAN CELL VOLUME 88.5 fl (80-96); MEAN PLT VOLUME 7.9 fl (7.5-11.1); MONO % 5.7 % (3.8-10.2); NEUT % 68.2 % (42.8-82.8); PLATELET COUNT 688 K/MM3 (134-434); RBC 3.28 M/mm3 (3.60-5.2); RDW 14.7 % (11.6-15.6); WHITE BLOOD COUNT 12.7 K/mm3 (4.0-10.0)
[2017-11-12] MEDS: METOPROLOL TARTRATE 25 MG TABLET (FP) PO SCH ×3 (08:15→21:47)
[2017-11-12] MEDS: amLODIPine BESYLATE 10 MG TABLET (FP) PO SCH ×2 (08:15→12:18)
[2017-11-12] MEDS ORDERED: PT OWN MED DRAWER 7, Y5N ONE (08:17)
[2017-11-12] MEDS: DULoxetine HCL 20 MG CAPSULE.DR (FP) PO SCH ×2 (08:18→12:13)
[2017-11-12 08:39] LABS: CHLORIDE 114 mmol/L (98-107); SODIUM 142 mmol/L (136-145)
[2017-11-12 08:44] LABS: BLOOD UREA NITROGEN 21 mg/dL (7-18); POTASSIUM 5.9 mmol/L (3.5-5.1)
[2017-11-12 08:58] LABS: ALBUMIN 0.9 g/dl (3.4-5.0); ALK PHOS 250 U/L (45-117); ANION GAP 8 (8-16); BILIRUBIN,TOTAL 0.2 mg/dL (0.2-1.0); CALCIUM 8.5 mg/dL (8.5-10.1); CO2 20 mmol/L (21-32); CREATININE 1.4 mg/dL (0.55-1.02); GLUCOSE,RANDOM 145 mg/dL (74-106); SGPT/ALT 9 U/L (12-78); TOT PROT 5.1 g/dl (6.4-8.2)
[2017-11-12 08:59] LABS: SGOT/AST 24 U/L (15-37)
[2017-11-12 10:09] LABS: ALK PHOS 251 U/L (45-117); ANION GAP 5 (8-16); BLOOD UREA NITROGEN 19 mg/dL (7-18); CALCIUM 8.3 mg/dL (8.5-10.1); CHLORIDE 113 mmol/L (98-107); CO2 24 mmol/L (21-32); CREATININE 1.4 mg/dL (0.55-1.02); GLUCOSE,RANDOM 147 mg/dL (74-106); POTASSIUM 4.9 mmol/L (3.5-5.1); SGOT/AST 18 U/L (15-37); SODIUM 142 mmol/L (136-145); TOT PROT 4.9 g/dl (6.4-8.2)
[2017-11-12 10:27] LABS: ALBUMIN 0.9 g/dl (3.4-5.0); BILIRUBIN,TOTAL < 0.1 mg/dL (0.2-1.0)
[2017-11-12 10:37] LABS: SGPT/ALT 10 U/L (12-78)
[2017-11-12] MEDS: POLYETHYLENE GLYCOL 3350 119 GM BTL PO SCH (12:18)
[2017-11-12] MEDS: LACTOBACILLUS ACIDOPHILUS 1 TABLET PO SCH (12:19)
[2017-11-12] MEDS ORDERED: morphine CARPU-JECT 2 MG/1 ML DISP.SYRIN IVPUSH ONE (13:00)
--- NOTE | 2017-11-12 13:19 | PN ---
Progress Note, Physician Chief Complaint: patient is awaiting to go to OR today - Current Medication List Current Medications: Active Medications Acetaminophen (Tylenol -) 650 mg PO Q4H PRN PRN Reason: PAIN SCALE 7-10 Last Admin: 11/12/17 06:14 Dose: 650 mg Amlodipine Besylate (Norvasc -) 10 mg PO DAILY [facility] Last Admin: 11/12/17 12:18 Dose: Not Given Atorvastatin Calcium (Lipitor -) 40 mg PO HS [facility] Last Admin: 11/11/17 22:55 Dose: 40 mg Duloxetine HCl (Cymbalta -) 20 mg PO DAILY [facility] Last Admin: 11/12/17 12:13 Dose: Not Given Gabapentin (Neurontin -) 600 mg PO TID [facility] Last Admin: 11/12/17 06:13 Dose: 600 mg Heparin Sodium (Porcine) (Heparin -) 5,000 unit SQ TID [facility] Last Admin: 11/12/17 06:10 Dose: Not Given Insulin Aspart (Novolog Vial Sliding Scale -) 1 vial SQ [facility]; Protocol Last Admin: 11/11/17 22:58 Dose: Not Given Insulin Aspart (Novolog Vial Sliding Scale -) 1 vial SQ TIDAC [facility]; Protocol Last Admin: 11/12/17 12:18 Dose: Not Given Lactobacillus Acidophilus (Bacid -) 1 tab PO DAILY [facility] Last Admin: 11/12/17 12:19 Dose: Not Given Metoprolol Tartrate (Lopressor -) 25 mg PO BID [facility] Last Admin: 11/12/17 12:14 Dose: Not Given Oxycodone HCl (Roxicodone -) 10 mg PO Q4H PRN PRN Reason: PAIN SCALE 7-10 Last Admin: 11/12/17 06:13 Dose: 10 mg Polyethylene Glycol (Miralax (For Daily Use) -) 17 gm PO DAILY [facility] Last Admin: 11/12/17 12:18 Dose: Not Given - Objective Vital Signs: Vital Signs Temperature 98.3 F 11/12/17 10:42 Pulse Rate 79 11/12/17 10:42 Respiratory Rate 18 11/12/17 10:42 Blood Pressure 151/90 11/12/17 10:42 O2 Sat by Pulse Oximetry (%) 96 11/11/17 21:00 Constitutional: Yes: Calm Cardiovascular: Yes: Regular Rate and Rhythm, S1, S2 Respiratory: Yes: CTA Bilaterally Gastrointestinal: Yes: Normal Bowel Sounds, Soft Extremities: Yes: Other (gangrenous right foot toe and left BKA) Neurological: Yes: Alert, Oriented Labs: CBC, BMP 11/12/17 08:00 11/12/17 09:25 INR, PTT INR 1.11 (0.82-1.09) 11/07/17 00:45 Problem List - Problems (1) Foot pain, left Assessment/Plan: seen by vascular plan is for BKA- on per vascular NPO cleared for the procedure by cardiology neurotin TID dvt ppx Code(s): M79.672 - PAIN IN LEFT FOOT (2) CAD (coronary artery disease) Assessment/Plan: metoprolol, statin and norvasc cardiology on board Code(s): I25.10 - ATHSCL HEART DISEASE OF [place] CORONARY ARTERY W/O ANG PCTRS (3) Diabetes Assessment/Plan: sliding scale bgm [id number] Code(s): E11.9 - TYPE 2 DIABETES MELLITUS WITHOUT COMPLICATIONS Qualifiers: Diabetes mellitus type: type 2
--- NOTE | 2017-11-12 15:38 | CONSULT ---
Consult Consult Specialty:: Nephrology Reason for Consultation:: CKD - History of Present Illness Chief Complaint: left foot gangrene History of Present Illness: Pt is a 52 year old female with pmhx of DM, HTN, CKD and PAD who presents to the ER with worsening left foot gangrene. She denies fevers or chills. She has poor outpt follow up. She has history of CKD and was evaluated by me in the past in the hospital. She was also found to be hyperkalemic. She denies shortness of breath or palpitations. She denies nsaid use. - History Source History Provided By: Patient - Past Medical History MAINTENANCE MAN: Yes: CVA Cardio/Vascular: Yes: HTN, Other (PAD) Pulmonary: Yes: Asthma Gastrointestinal: Yes: Pancreatitis Hepatobiliary: Yes: Other (ALCOHOLISM STOPPED ONE YEAR AGO) Renal/: Yes: Renal Inusuff, Other (PYLEONEPHRITIS RECENTLY AT [facility]) Endocrine: Yes: Diabetes Mellitus - Past Surgical History Past Surgical History: Yes: Cholecystectomy - Alcohol/Substance Use Hx Alcohol Use: No - Smoking History Smoking history: Current every day smoker Have you smoked in the past 12 months: Yes Aproximately how many cigarettes per day: 2 - Social History Usual Living Arrangement: With Significant Other ADL: Support Services Home Medications - Allergies Allergies/Adverse Reactions: Allergies Allergy/AdvReac Type Severity Reaction Status Date / Time No Known Allergies Allergy Verified 11/06/17 22:01 - Home Medications Home Medications: Ambulatory Orders Aspirin [ASA -] 81 mg PO DAILY 05/04/15 Hydrochlorothiazide [Hctz -] 12.5 mg PO DAILY cap 09/08/16 Clopidogrel Bisulfate [Plavix -] 75 mg PO DAILY 09/10/17 Insulin (Novolog) [Novolog Flexpen -] 12 units SQ TID 09/10/17 Atorvastatin Ca [Lipitor] 40 mg PO HS #30 tablet 09/21/17 Gabapentin [Neurontin -] 1 tab PO BID 10/21/17 Lactobacillus Acidophilus [Bacid -] 1 tab PO DAILY #30 tab 10/27/17 Amlodipine Besylate [Norvasc -] 10 mg PO DAILY 11/06/17 Lorazepam [Ativan] 2 mg PO DAILY PRN 11/06/17 Oxycodone HCl/Acetaminophen [Oxycodone-Acetaminophen 5-325] 1 each PO BID PRN Paroxetine HCl 10 mg PO DAILY 11/06/17 Sulfamethoxazole/Trimethoprim [Bactrim Ds -] 1 tab PO BID 11/06/17 Family Disease History - Family Disease History Family History: Denies Review of Systems - Review of Systems Constitutional: reports: Malaise Eyes: reports: No Symptoms HENT: reports: No Symptoms Neck: reports: No Symptoms Cardiovascular: reports: No Symptoms Respiratory: reports: No Symptoms Gastrointestinal: reports: No Symptoms Genitourinary: reports: No Symptoms Musculoskeletal: reports: Extremity Pain Integumentary: reports: Other (gangrene) Neurological: reports: No Symptoms Endocrine: reports: No Symptoms Hematology/Lymphatic: reports: No Symptoms Psychiatric: reports: No Symptoms Physical Exam Vital Signs: Vital Signs Temperature 99.0 F 11/12/17 14:12 Pulse Rate 82 11/12/17 14:12 Respiratory Rate 16 11/12/17 14:12 Blood Pressure 159/86 11/12/17 14:12 O2 Sat by Pulse Oximetry (%) 96 11/11/17 21:00 Constitutional: Yes: Calm Eyes: Yes: Conjunctiva Clear HENT: Yes: Atraumatic Neck: Yes: Supple Cardiovascular: Yes: S1, S2 Respiratory: Yes: CTA Bilaterally Gastrointestinal: Yes: Soft Renal/: Yes: WNL Musculoskeletal: Yes: Other (right leg amputation, left leg gangrene) Edema: No Integumentary: Yes: Erythema Neurological: Yes: Oriented Psychiatric: Yes: Oriented Labs: CBC, BMP 11/12/17 08:00 11/12/17 09:25 Laboratory Tests 10/21/17 10/22/17 10/29/17 15:46 06:20 08:20 WBC Hgb Sodium Potassium BUN Creatinine 1.5 H 1.3 H 1.2 H 11/07/17 11/12/17 11/12/17 00:45 08:00 08:00 WBC 12.7 H D Hgb 9.5 L D Sodium Potassium 5.9 H BUN 21 H Creatinine 1.5 H 1.4 H 11/12/17 09:25 WBC Hgb Sodium 142 Potassium BUN 19 H Creatinine 1.4 H Imaging - Results Chest X-ray: Report Reviewed Problem List - Problems (1) CAD (coronary artery disease) Code(s): I25.10 - ATHSCL HEART DISEASE OF [place] CORONARY ARTERY W/O ANG PCTRS (2) Diabetes Code(s): E11.9 - TYPE 2 DIABETES MELLITUS WITHOUT COMPLICATIONS Qualifiers: Diabetes mellitus type: type 2 (3) Dry gangrene Code(s): I96 - GANGRENE, NOT ELSEWHERE CLASSIFIED (4) Foot pain, left Code(s): M79.672 - PAIN IN LEFT FOOT (5) CKD (chronic kidney disease) Code(s): N18.9 - CHRONIC KIDNEY DISEASE, UNSPECIFIED Assessment/Plan Current Medications Generic Name Dose Route Start Last Admin Trade Name Freq PRN Reason Stop Dose Admin Acetaminophen 650 mg 11/08/17 13:58 11/12/17 06:14 Tylenol - PO 650 mg Q4H PRN Administration PAIN SCALE 7-10 Amlodipine Besylate 10 mg 11/11/17 22:28 11/12/17 12:18 Norvasc - PO Not Given DAILY [facility] Atorvastatin Calcium 40 mg 11/07/17 22:00 11/11/17 22:55 Lipitor - PO 40 mg HS [facility] Administration Duloxetine HCl 20 mg 11/07/17 10:00 11/12/17 12:13 Cymbalta - PO Not Given DAILY [facility] Gabapentin 600 mg 11/07/17 06:00 11/12/17 13:51 Neurontin - PO Not Given TID [facility] Heparin Sodium (Porcine) 5,000 unit 11/07/17 06:00 11/12/17 13:44 Heparin - SQ Not Given TID [facility] Insulin Aspart 1 vial 11/07/17 22:00 11/11/17 22:58 Novolog Vial Sliding Scale - SQ Not Given HS [facility] Protocol Insulin Aspart 1 vial 11/07/17 07:00 11/12/17 12:18 Novolog Vial Sliding Scale - SQ Not Given TIDAC [facility] Protocol Lactobacillus Acidophilus 1 tab 11/07/17 10:00 11/12/17 12:19 Bacid - PO Not Given DAILY [facility] Metoprolol Tartrate 25 mg 11/07/17 10:00 11/12/17 12:14 Lopressor - PO Not Given BID [facility] Oxycodone HCl 10 mg 11/08/17 13:57 11/12/17 14:22 Roxicodone - PO 10 mg Q4H PRN Administration PAIN SCALE 7-10 Polyethylene Glycol 17 gm 11/07/17 10:00 05/24/18 12:18 Miralax (For Daily Use) - PO Not Given DAILY [facility] Impression 1. CKD 2. PVD 3. leg pain 4. DM 5. HTN 6. hyperkalemia 7. HLD 8. CVA Plan - potassium is improved - renal function is improving - repeat labs in am - will cont to monitor - pt is going to OR today
--- NOTE | 2017-11-12 16:16 | PN ---
Progress Note, Physician Chief Complaint: PreOp evaluation History of Present Illness: This is a 52 year old female with a PMH of DM, HTN, and PVD. She is S/P leg right amputations and now presents with left foot gangrene. She denies cardiac symptoms. - Current Medication List Current Medications: Active Medications Acetaminophen (Tylenol -) 650 mg PO Q4H PRN PRN Reason: PAIN SCALE 7-10 Last Admin: 11/12/17 06:14 Dose: 650 mg Amlodipine Besylate (Norvasc -) 10 mg PO DAILY [facility] Last Admin: 11/12/17 12:18 Dose: Not Given Atorvastatin Calcium (Lipitor -) 40 mg PO HS [facility] Last Admin: 11/11/17 22:55 Dose: 40 mg Duloxetine HCl (Cymbalta -) 20 mg PO DAILY [facility] Last Admin: 11/12/17 12:13 Dose: Not Given Gabapentin (Neurontin -) 600 mg PO TID [facility] Last Admin: 11/12/17 13:51 Dose: Not Given Heparin Sodium (Porcine) (Heparin -) 5,000 unit SQ TID [facility] Last Admin: 11/12/17 13:44 Dose: Not Given Insulin Aspart (Novolog Vial Sliding Scale -) 1 vial SQ HS [facility]; Protocol Last Admin: 11/11/17 22:58 Dose: Not Given Insulin Aspart (Novolog Vial Sliding Scale -) 1 vial SQ TIDAC [facility]; Protocol Last Admin: 11/12/17 12:18 Dose: Not Given Lactobacillus Acidophilus (Bacid -) 1 tab PO DAILY [facility] Last Admin: 11/12/17 12:19 Dose: Not Given Metoprolol Tartrate (Lopressor -) 25 mg PO BID [facility] Last Admin: 11/12/17 12:14 Dose: Not Given Oxycodone HCl (Roxicodone -) 10 mg PO Q4H PRN PRN Reason: PAIN SCALE 7-10 Last Admin: 11/12/17 14:22 Dose: 10 mg Polyethylene Glycol (Miralax (For Daily Use) -) 17 gm PO DAILY [facility] Last Admin: 11/12/17 12:18 Dose: Not Given - Objective Vital Signs: Vital Signs Temperature 99.0 F 11/12/17 14:12 Pulse Rate 82 11/12/17 14:12 Respiratory Rate 16 11/12/17 14:12 Blood Pressure 159/86 11/12/17 14:12 O2 Sat by Pulse Oximetry (%) 96 11/11/17 21:00 Constitutional: Yes: No Distress HENT: Yes: WNL Neck: Yes: WNL Cardiovascular: Yes: Regular Rate and Rhythm (NL S1S2, no MRHG) Respiratory: Yes: CTA Bilaterally Gastrointestinal: Yes: Normal Bowel Sounds Extremities: Yes: Other (Left foot gangrene, Rigth LE amputation) Edema: No Neurological: Yes: Alert, Oriented (Non focal) Labs: CBC, BMP 11/12/17 08:00 11/12/17 09:25 INR, PTT INR 1.11 (0.82-1.09) 11/07/17 00:45 Assessment/Plan Assessment/Plan 52 F with DM and PVD. Presumed to have CAD and managed medically. An echocardiogram in July showed moderate lateral wall hypokinesis with preserved EF. Presently she is without cardiac symptoms. Awaiting surgery Hemodynamically stable Continue metoprolol, statin, amlodipine There are no cardiac contraindications to Vascular surgery including BKA
[2017-11-12] MEDS ORDERED: fentaNYL CITRATE 250 MCG/5 ML VIAL ONE (17:36)
[2017-11-12] MEDS ORDERED: LIDOCAINE HCL/PF 2% SDV 5ML VIAL ONE (17:39)
[2017-11-12] MEDS ORDERED: LABETALOL HCL 5 MG/1 ML (100MG/20 ML VIAL) ONE (17:39)
[2017-11-12] MEDS ORDERED: ROCURONIUM BROMIDE 50 MG/5 ML VIAL ONE (17:40)
[2017-11-12] MEDS ORDERED: PROPOFOL 20 ML ONE (17:40)
[2017-11-12] MEDS ORDERED: ceFAZolin SODIUM 1 GM VIAL IVPB ONE (17:55)
[2017-11-12] MEDS ORDERED: ceFAZolin SODIUM 1 GM VIAL ONE (17:55)
[2017-11-12] MEDS ORDERED: DEXAMETHASONE SOD PHOSPHATE 4 MG/1 ML VIAL ONE (18:20)
[2017-11-12] MEDS ORDERED: ONDANSETRON 4 MG/2 ML VIAL ONE (18:20)
[2017-11-12] MEDS ORDERED: NEOSTIGMINE METHYLSULFATE 0.5 MG/ML - 10 ML MDV ONE (18:48)
[2017-11-12] MEDS ORDERED: GLYCOPYRROLATE 0.2 MG/1 ML VIAL ONE (18:49)
[2017-11-12] MEDS ORDERED: morphine SULFATE 4 MG/ML VIAL IVPUSH PRN (19:17)
--- NOTE | 2017-11-12 19:17 | OP ---
Operative Note - Note: Operative Date: 11/12/17 Pre-Operative Diagnosis: gangrene left foot Operation: left BKA Post-Operative Diagnosis: Same as Pre-op Surgeon: Jose Manzo Digital Measurement Advisor: Frank Howell Anesthesia: General Estimated Blood Loss (mls): 150 Operative Report Dictated: Yes
--- NOTE | 2017-11-12 19:21 | SURG ---
Surgery Special Delivery Worker Note Special Delivery Worker: Frank Howell PA-C Date of Service: 11/12/17 Diagnosis: left foot gangrene Procedure: Left lower extremity below knee amputation I was present for the entirety of the operative procedure. For further detail, please refer to operative report. Visit type - Case Type Case Type: ED Admission
[2017-11-12] MEDS: ATORVASTATIN CA 40 MG TABLET (FP) PO SCH (21:47)
[2017-11-12] MEDS ORDERED: INSULIN (NOVOLOG) ASPART 100 UNITS/ML 10ML VIAL ONE (21:53)
[2017-11-13] MEDS: GABAPENTIN 300 MG CAPSULE (FP) PO SCH ×3 (05:24→22:43)
[2017-11-13] MEDS: HEPARIN NA (PORCINE) 5,000 UNITS/ML 1ML VIAL SQ SCH ×3 (05:25→22:46)
[2017-11-13] MEDS: INSULIN SLIDING SCALE (NOVOLOG) 1 VIAL SQ SCH ×4 (06:04→22:52)
[2017-11-13] MEDS: oxyCODONE HCL 5 MG TABLET PO PRN ×2 (06:07→14:39)
[2017-11-13] MEDS: ACETAMINOPHEN 325 MG TABLET (FP) PO PRN ×2 (06:08→14:38)
[2017-11-13 08:57] LABS: BASO % 0.7 % (0-2.0); HEMATOCRIT 27.2 % (32.4-45.2); HEMOGLOBIN 8.8 GM/dL (10.7-15.3); LYMPH % 8.5 % (8-40); MCH 28.8 pg (25.7-33.7); MCHC 32.4 g/dl (32.0-36.0); MEAN CELL VOLUME 88.7 fl (80-96); MONO % 4.6 % (3.8-10.2); NEUT % 86.2 % (42.8-82.8); PLATELET COUNT 738 K/MM3 (134-434); RBC 3.07 M/mm3 (3.60-5.2); RDW 14.7 % (11.6-15.6)
[2017-11-13 09:26] LABS: BLOOD UREA NITROGEN 23 mg/dL (7-18); CALCIUM 8.3 mg/dL (8.5-10.1); CHLORIDE 111 mmol/L (98-107); GLUCOSE,RANDOM 142 mg/dL (74-106); POTASSIUM 5.6 mmol/L (3.5-5.1); SODIUM 141 mmol/L (136-145)
[2017-11-13 09:28] LABS: CREATININE 1.6 mg/dL (0.55-1.02)
[2017-11-13] MEDS: POLYETHYLENE GLYCOL 3350 119 GM BTL PO SCH (09:45)
[2017-11-13] MEDS: amLODIPine BESYLATE 10 MG TABLET (FP) PO SCH (09:46)
[2017-11-13] MEDS: LACTOBACILLUS ACIDOPHILUS 1 TABLET PO SCH (09:46)
[2017-11-13] MEDS: METOPROLOL TARTRATE 25 MG TABLET (FP) PO SCH ×2 (09:46→22:49)
[2017-11-13] MEDS ORDERED: PT OWN MED DRAWER 7, Y5N ONE (09:50)
[2017-11-13] MEDS: DULoxetine HCL 20 MG CAPSULE.DR (FP) PO SCH (09:52)
--- NOTE | 2017-11-13 09:55 | PN ---
Progress Note (short form) - Note Progress Note: POD #1 Alert. Doing well. C/o incisonal tenderness. [place]qa[place] pain control via PRN meds. Last Vital Signs Temp Pulse Resp BP Pulse Ox 98.5 F 97 H 18 167/88 97 11/13/17 06:00 11/13/17 06:00 11/13/17 06:00 11/13/17 06:00 11/12/17 22:00 CBC, BMP 11/13/17 08:10 11/13/17 08:10 Gen: nad LLE: dressing c/d/i Problem List - Problems (1) Status post below knee amputation of left lower extremity Assessment/Plan: Pain management as ordered Cont medical management Dressing to be changed POD #3 Code(s): Z89.512 - ACQUIRED ABSENCE OF LEFT LEG BELOW KNEE
[2017-11-13 10:17] LABS: PLATELET ESTIMATE INCREASED
[2017-11-13 11:43] LABS: ANION GAP 9 (8-16); CO2 21 mmol/L (21-32)
--- NOTE | 2017-11-13 13:26 | PN ---
Progress Note (short form) - Note Progress Note: Anesthesia postop note POD#1, S/P Left BKA under GA. Pat seen and examined. VSS., no apparent post anesthesia complications. signed off.
[2017-11-13] MEDS ORDERED: SODIUM POLYSTYRENE SULFONATE 15 GM/60 ML BOTTLE PO ONE (15:27)
[2017-11-13] MEDS ORDERED: oxyCODONE HCL 5 MG TABLET PO PRN (15:30)
--- NOTE | 2017-11-13 15:33 | PN ---
Progress Note, Physician Chief Complaint: s/p BKA in bed no distress - Current Medication List Current Medications: Active Medications Acetaminophen (Tylenol -) 650 mg PO Q4H PRN PRN Reason: PAIN SCALE 7-10 Last Admin: 11/13/17 14:38 Dose: 650 mg Amlodipine Besylate (Norvasc -) 10 mg PO DAILY [facility] Last Admin: 11/13/17 09:46 Dose: 10 mg Atorvastatin Calcium (Lipitor -) 40 mg PO HS [facility] Last Admin: 11/12/17 21:47 Dose: 40 mg Duloxetine HCl (Cymbalta -) 20 mg PO DAILY [facility] Last Admin: 11/13/17 09:52 Dose: 20 mg Gabapentin (Neurontin -) 600 mg PO TID [facility] Last Admin: 11/13/17 14:39 Dose: 600 mg Heparin Sodium (Porcine) (Heparin -) 5,000 unit SQ TID [facility] Last Admin: 11/13/17 14:39 Dose: 5,000 unit Insulin Aspart (Novolog Vial Sliding Scale -) 1 vial SQ HS [facility]; Protocol Last Admin: 11/12/17 21:58 Dose: 2 units Insulin Aspart (Novolog Vial Sliding Scale -) 1 vial SQ TIDAC [facility]; Protocol Last Admin: 11/13/17 11:47 Dose: 2 units Lactobacillus Acidophilus (Bacid -) 1 tab PO DAILY [facility] Last Admin: 11/13/17 09:46 Dose: 1 tab Metoprolol Tartrate (Lopressor -) 25 mg PO BID [facility] Last Admin: 11/13/17 09:46 Dose: 25 mg Morphine Sulfate (Morphine Sulfate) 4 mg IVPUSH Q4H PRN PRN Reason: PAIN LEVEL 6-10 Last Admin: 11/13/17 01:32 Dose: 4 mg Oxycodone HCl (Roxicodone -) 10 mg PO Q4H PRN PRN Reason: PAIN SCALE 7-10 Last Admin: 11/13/17 14:39 Dose: 10 mg Polyethylene Glycol (Miralax (For Daily Use) -) 17 gm PO DAILY [facility] Last Admin: 11/13/17 09:45 Dose: Not Given Sodium Polystyrene Sulfonate (Kayexalate -) 15 gm PO ONCE ONE Stop: 11/13/17 15:28 - Objective Vital Signs: Vital Signs Temperature 98.6 F 11/13/17 14:09 Pulse Rate 82 11/13/17 14:09 Respiratory Rate 20 11/13/17 14:09 Blood Pressure 128/72 11/13/17 14:09 O2 Sat by Pulse Oximetry (%) 94 L 11/13/17 09:00 Constitutional: Yes: Calm Neck: Yes: Trachea Midline Cardiovascular: Yes: Regular Rate and Rhythm, S1, S2 Respiratory: Yes: CTA Bilaterally Gastrointestinal: Yes: Normal Bowel Sounds, Soft Musculoskeletal: Yes: Other (bilateral BKA) Neurological: Yes: Alert Labs: CBC, BMP 11/13/17 08:10 11/13/17 08:10 INR, PTT INR 1.11 (0.82-1.09) 11/07/17 00:45 Problem List - Problems (1) Foot pain, left Assessment/Plan: left BKA done neurotin TID dvt ppx oxycodone 5mg q4hr prn for pain 1-5 oxycodone 10mg po q4 prn for pain 6-10 Code(s): M79.672 - PAIN IN LEFT FOOT (2) CAD (coronary artery disease) Assessment/Plan: metoprolol, statin and norvasc cardiology on board Code(s): I25.10 - ATHSCL HEART DISEASE OF [place] CORONARY ARTERY W/O ANG PCTRS (3) Diabetes Assessment/Plan: sliding scale bgm [id number] Code(s): E11.9 - TYPE 2 DIABETES MELLITUS WITHOUT COMPLICATIONS Qualifiers: Diabetes mellitus type: type 2 Assessment/Plan hyperkalemia- kayxelate
--- NOTE | 2017-11-13 16:22 | PN ---
Progress Note, Physician History of Present Illness: Pt seen and examined at bedside. She is awake and alert. She denies shortness of breath. - Current Medication List Current Medications: Active Medications Acetaminophen (Tylenol -) 650 mg PO Q4H PRN PRN Reason: PAIN SCALE 7-10 Last Admin: 11/13/17 14:38 Dose: 650 mg Amlodipine Besylate (Norvasc -) 10 mg PO DAILY [facility] Last Admin: 11/13/17 09:46 Dose: 10 mg Atorvastatin Calcium (Lipitor -) 40 mg PO HS [facility] Last Admin: 11/12/17 21:47 Dose: 40 mg Duloxetine HCl (Cymbalta -) 20 mg PO DAILY [facility] Last Admin: 11/13/17 09:52 Dose: 20 mg Gabapentin (Neurontin -) 600 mg PO TID [facility] Last Admin: 11/13/17 14:39 Dose: 600 mg Heparin Sodium (Porcine) (Heparin -) 5,000 unit SQ TID [facility] Last Admin: 11/13/17 14:39 Dose: 5,000 unit Insulin Aspart (Novolog Vial Sliding Scale -) 1 vial SQ HS [facility]; Protocol Last Admin: 11/12/17 21:58 Dose: 2 units Insulin Aspart (Novolog Vial Sliding Scale -) 1 vial SQ TIDAC [facility]; Protocol Last Admin: 11/13/17 11:47 Dose: 2 units Lactobacillus Acidophilus (Bacid -) 1 tab PO DAILY [facility] Last Admin: 11/13/17 09:46 Dose: 1 tab Metoprolol Tartrate (Lopressor -) 25 mg PO BID [facility] Last Admin: 11/13/17 09:46 Dose: 25 mg Oxycodone HCl (Roxicodone -) 10 mg PO Q4H PRN PRN Reason: PAIN SCALE 7-10 Last Admin: 11/13/17 14:39 Dose: 10 mg Oxycodone HCl (Roxicodone -) 5 mg PO Q4H PRN PRN Reason: PAIN LEVEL 1-5 Polyethylene Glycol (Miralax (For Daily Use) -) 17 gm PO DAILY [facility] Last Admin: 11/13/17 09:45 Dose: Not Given - Objective Vital Signs: Vital Signs Temperature 98.6 F 11/13/17 14:09 Pulse Rate 82 11/13/17 14:09 Respiratory Rate 20 11/13/17 14:09 Blood Pressure 128/72 11/13/17 14:09 O2 Sat by Pulse Oximetry (%) 94 L 11/13/17 09:00 Constitutional: Yes: Calm Eyes: Yes: Conjunctiva Clear HENT: Yes: Atraumatic Neck: Yes: Supple Cardiovascular: Yes: S1, S2 Respiratory: Yes: CTA Bilaterally Gastrointestinal: Yes: Soft Genitourinary: Yes: WNL Extremities: Yes: Other (bilateral lower ext amputations) Edema: No Neurological: Yes: Oriented Psychiatric: Yes: Oriented Labs: CBC, BMP 11/13/17 08:10 11/13/17 08:10 INR, PTT INR 1.11 (0.82-1.09) 11/07/17 00:45 Problem List - Problems (1) CAD (coronary artery disease) Code(s): I25.10 - ATHSCL HEART DISEASE OF [place] CORONARY ARTERY W/O ANG PCTRS (2) Diabetes Code(s): E11.9 - TYPE 2 DIABETES MELLITUS WITHOUT COMPLICATIONS Qualifiers: Diabetes mellitus type: type 2 (3) Dry gangrene Code(s): I96 - GANGRENE, NOT ELSEWHERE CLASSIFIED (4) Foot pain, left Code(s): M79.672 - PAIN IN LEFT FOOT (5) CKD (chronic kidney disease) Code(s): N18.9 - CHRONIC KIDNEY DISEASE, UNSPECIFIED Assessment/Plan Current Medications Generic Name Dose Route Start Last Admin Trade Name Freq PRN Reason Stop Dose Admin Acetaminophen 650 mg 11/12/17 19:54 11/13/17 14:38 Tylenol - PO 650 mg Q4H PRN Administration PAIN SCALE 7-10 Amlodipine Besylate 10 mg 11/13/17 10:00 11/13/17 09:46 Norvasc - PO 10 mg DAILY [facility] Administration Atorvastatin Calcium 40 mg 11/12/17 22:00 11/12/17 21:47 Lipitor - PO 40 mg HS [facility] Administration Duloxetine HCl 20 mg 11/13/17 10:00 11/13/17 09:52 Cymbalta - PO 20 mg DAILY [facility] Administration Gabapentin 600 mg 11/12/17 22:00 11/13/17 14:39 Neurontin - PO 600 mg TID [facility] Administration Heparin Sodium (Porcine) 5,000 unit 11/12/17 22:00 11/13/17 14:39 Heparin - SQ 5,000 unit TID [facility] Administration Insulin Aspart 1 vial 11/12/17 22:00 11/12/17 21:58 Novolog Vial Sliding Scale - SQ 2 units HS [facility] Administration Protocol Insulin Aspart 1 vial 11/13/17 07:00 11/13/17 11:47 Novolog Vial Sliding Scale - SQ 2 units TIDAC [facility] Administration Protocol Lactobacillus Acidophilus 1 tab 11/13/17 10:00 11/13/17 09:46 Bacid - PO 1 tab DAILY [facility] Administration Metoprolol Tartrate 25 mg 11/12/17 22:00 11/13/17 09:46 Lopressor - PO 25 mg BID [facility] Administration Oxycodone HCl 10 mg 11/12/17 19:54 11/13/17 14:39 Roxicodone - PO 10 mg Q4H PRN Administration PAIN SCALE 7-10 Oxycodone HCl 5 mg 11/13/17 15:30 Roxicodone - PO Q4H PRN PAIN LEVEL 1-5 Polyethylene Glycol 17 gm 11/13/17 10:00 11/13/17 09:45 Miralax (For Daily Use) - PO Not Given DAILY [facility] Impression 1. CKD 2. PVD 3. leg pain 4. DM 5. HTN 6. hyperkalemia 7. HLD 8. CVA Plan - restart 1/2ns - PO sodum bicarb - low potassium diet - pt received kayexylate - wound care - repeat labs in am
[2017-11-13] MEDS ORDERED: SODIUM CHLORIDE 0.45% 1,000 ML IV SCH (16:30)
[2017-11-13] MEDS: SODIUM BICARBONATE 650 MG TABLET PO SCH ×2 (17:15→22:44)
[2017-11-13] MEDS: ATORVASTATIN CA 40 MG TABLET (FP) PO SCH (22:44)
[2017-11-14] MEDS: oxyCODONE HCL 5 MG TABLET PO PRN ×2 (02:56→11:47)
[2017-11-14] MEDS: ACETAMINOPHEN 325 MG TABLET (FP) PO PRN ×2 (02:57→11:47)
[2017-11-14] MEDS: GABAPENTIN 300 MG CAPSULE (FP) PO SCH ×3 (05:19→22:55)
[2017-11-14] MEDS: HEPARIN NA (PORCINE) 5,000 UNITS/ML 1ML VIAL SQ SCH ×3 (05:22→22:55)
[2017-11-14] MEDS: INSULIN SLIDING SCALE (NOVOLOG) 1 VIAL SQ SCH ×4 (06:03→22:56)
[2017-11-14 08:33] LABS: BASO % 1.3 % (0-2.0); EOS % 1.5 % (0-4.5); HEMATOCRIT 22.2 % (32.4-45.2); HEMOGLOBIN 7.2 GM/dL (10.7-15.3); LYMPH % 17.2 % (8-40); MCHC 32.4 g/dl (32.0-36.0); MEAN CELL VOLUME 89.6 fl (80-96); MEAN PLT VOLUME 7.7 fl (7.5-11.1); MONO % 9.2 % (3.8-10.2); NEUT % 70.8 % (42.8-82.8); PLATELET COUNT 620 K/MM3 (134-434); RBC 2.48 M/mm3 (3.60-5.2); RDW 15.1 % (11.6-15.6); WHITE BLOOD COUNT 15.9 K/mm3 (4.0-10.0)
[2017-11-14] MEDS ORDERED: PT OWN MED DRAWER 7, Y5N ONE (09:03)
[2017-11-14 09:05] LABS: ANION GAP 5 (8-16); BILIRUBIN,TOTAL 0.4 mg/dL (0.2-1.0); BLOOD UREA NITROGEN 23 mg/dL (7-18); CALCIUM 7.6 mg/dL (8.5-10.1); CHLORIDE 113 mmol/L (98-107); CO2 26 mmol/L (21-32); CREATININE 1.5 mg/dL (0.55-1.02); GLUCOSE,RANDOM 112 mg/dL (74-106); POTASSIUM 4.7 mmol/L (3.5-5.1); SGOT/AST 20 U/L (15-37); SGPT/ALT 8 U/L (12-78); SODIUM 144 mmol/L (136-145); TOT PROT 4.3 g/dl (6.4-8.2)
[2017-11-14 09:06] LABS: ALBUMIN 0.9 g/dl (3.4-5.0); ALK PHOS 199 U/L (45-117)
[2017-11-14] MEDS: METOPROLOL TARTRATE 25 MG TABLET (FP) PO SCH ×2 (09:16→22:55)
[2017-11-14] MEDS: LACTOBACILLUS ACIDOPHILUS 1 TABLET PO SCH (09:16)
[2017-11-14] MEDS: SODIUM BICARBONATE 650 MG TABLET PO SCH ×2 (09:16→22:55)
[2017-11-14] MEDS: amLODIPine BESYLATE 10 MG TABLET (FP) PO SCH (09:16)
[2017-11-14] MEDS: DULoxetine HCL 20 MG CAPSULE.DR (FP) PO SCH (09:16)
[2017-11-14] MEDS: POLYETHYLENE GLYCOL 3350 119 GM BTL PO SCH (09:17)
--- NOTE | 2017-11-14 09:44 | PN ---
Physical Exam: SUBJECTIVE: Patient seen and examined. She has no complaints. pain is controlled. OBJECTIVE: Vital Signs Period Temp Pulse Resp BP Sys/Badillo Pulse Ox Last 24 Hr 98.6 F-99.8 F 82-92 18-20 128-149/65-74 94 GENERAL: The patient is awake, alert, and fully oriented, in no acute distress. LUNGS: Breath sounds equal, clear to auscultation bilaterally, no wheezes, no crackles, no accessory muscle use. HEART: Regular rate and rhythm, S1, S2 without murmur, rub or gallop. ABDOMEN: Soft, nontender, nondistended, normoactive bowel sounds, no guarding, no rebound, no hepatosplenomegaly, no masses. EXTREMITIES: Bilateral BKA Laboratory Results - last 24 hr 11/13/17 11/13/17 11/13/17 08:10 08:10 11:42 WBC RBC Hgb Hct MCV MCH MCHC RDW Plt Count MPV Neutrophils % Neutrophils % (Manual) 89.0 H Band Neutrophils % 0.0 Lymphocytes % Lymphocytes % (Manual) 10.0 D Monocytes % Monocytes % (Manual) 1 L Eosinophils % Eosinophils % (Manual) 0.0 Basophils % Basophils % (Manual) 0.0 Myelocytes % (Man) 0 Promyelocytes % (Man) 0 Blast Cells % (Manual) 0 Nucleated RBC % 0 Metamyelocytes 0 Platelet Estimate Increased Sodium Potassium Chloride Carbon Dioxide 21 Anion Gap 9 BUN Creatinine Creat Clearance w eGFR POC Glucometer 197 Random Glucose Calcium Total Bilirubin AST ALT Alkaline Phosphatase Total Protein Albumin 11/13/17 11/13/17 11/14/17 17:29 22:51 05:28 WBC RBC Hgb Hct MCV MCH MCHC RDW Plt Count MPV Neutrophils % Neutrophils % (Manual) Band Neutrophils % Lymphocytes % Lymphocytes % (Manual) Monocytes % Monocytes % (Manual) Eosinophils % Eosinophils % (Manual) Basophils % Basophils % (Manual) Myelocytes % (Man) Promyelocytes % (Man) Blast Cells % (Manual) Nucleated RBC % Metamyelocytes Platelet Estimate Sodium Potassium Chloride Carbon Dioxide Anion Gap BUN Creatinine Creat Clearance w eGFR POC Glucometer 203 135 205 Random Glucose Calcium Total Bilirubin AST ALT Alkaline Phosphatase Total Protein Albumin 11/14/17 11/14/17 08:05 08:05 WBC 15.9 H RBC 2.48 L Hgb 7.2 L D Hct 22.2 L D MCV 89.6 MCH 29.0 MCHC 32.4 RDW 15.1 Plt Count 620 H MPV 7.7 Neutrophils % 70.8 Neutrophils % (Manual) Band Neutrophils % Lymphocytes % 17.2 D Lymphocytes % (Manual) Monocytes % 9.2 D Monocytes % (Manual) Eosinophils % 1.5 D Eosinophils % (Manual) Basophils % 1.3 Basophils % (Manual) Myelocytes % (Man) Promyelocytes % (Man) Blast Cells % (Manual) Nucleated RBC % 0 Metamyelocytes Platelet Estimate Sodium 144 Potassium 4.7 Chloride 113 H Carbon Dioxide 26 Anion Gap 5 L BUN 23 H Creatinine 1.5 H Creat Clearance w eGFR 36.19 POC Glucometer Random Glucose 112 H Calcium 7.6 L Total Bilirubin 0.4 D AST 20 ALT 8 L Alkaline Phosphatase 199 H Total Protein 4.3 L Albumin 0.9 L Active Medications Generic Name Dose Route Start Last Admin Trade Name Freq PRN Reason Stop Dose Admin Acetaminophen 650 mg 11/12/17 19:54 11/14/17 02:57 Tylenol - PO 650 mg Q4H PRN Administration PAIN SCALE 7-10 Amlodipine Besylate 10 mg 11/13/17 10:00 11/14/17 09:16 Norvasc - PO 10 mg DAILY [facility] Administration Atorvastatin Calcium 40 mg 11/12/17 22:00 11/13/17 22:44 Lipitor - PO 40 mg HS [facility] Administration Duloxetine HCl 20 mg 11/13/17 10:00 11/14/17 09:16 Cymbalta - PO 20 mg DAILY [facility] Administration Gabapentin 600 mg 11/12/17 22:00 11/14/17 05:19 Neurontin - PO 600 mg TID [facility] Administration Heparin Sodium (Porcine) 5,000 unit 11/12/17 22:00 11/14/17 05:22 Heparin - SQ 5,000 unit TID [facility] Administration Sodium Chloride 1,000 mls @ 50 mls/hr 11/13/17 16:30 11/13/17 17:15 1/2 Normal Saline IV 11/14/17 16:23 50 mls/hr ASDIR [facility] Administration Insulin Aspart 1 vial 11/12/17 22:00 11/13/17 22:52 Novolog Vial Sliding Scale - SQ Not Given HS [facility] Protocol Insulin Aspart 1 vial 11/13/17 07:00 11/14/17 06:03 Novolog Vial Sliding Scale - SQ 3 units TIDAC [facility] Administration Protocol Lactobacillus Acidophilus 1 tab 11/13/17 10:00 11/14/17 09:16 Bacid - PO 1 tab DAILY [facility] Administration Metoprolol Tartrate 25 mg 11/12/17 22:00 11/14/17 09:16 Lopressor - PO 25 mg BID [facility] Administration Oxycodone HCl 10 mg 11/12/17 19:54 11/14/17 02:56 Roxicodone - PO 10 mg Q4H PRN Administration PAIN SCALE 7-10 Oxycodone HCl 5 mg 11/13/17 15:30 Roxicodone - PO Q4H PRN PAIN LEVEL 1-5 Polyethylene Glycol 17 gm 11/13/17 10:00 11/14/17 09:17 Miralax (For Daily Use) - PO Not Given DAILY [facility] Sodium Bicarbonate 325 mg 11/13/17 16:22 11/14/17 09:16 Sodium Bicarbonate - PO 325 mg BID [facility] Administration ASSESSMENT/PLAN: 1. Left foot gangrene/PAD - s/p left BKA 11/12 - Had prior right BKA - Pain control with Neurontin, oxycodone as needed - Physical therapy - Will likely need short term rehab at discharge 2. Hyperkalemia - Improved with Kayexalate and IV fluid 3. Stage 3 CKD - Stable - Continue sodium bicarb 4. CAD - Continue Lopressor, Lipitor 5. Type 2 diabetes mellitus - Continue Novolog sliding scale 6. HTN - Continue Norvasc, Lopressor Visit type - Emergency Visit Emergency Visit: Yes ED Registration Date: 11/07/17 Care time: The patient presented to the Emergency Department on the above date and was hospitalized for further evaluation of their emergent condition. - New Patient This patient is new to me today: Yes Date on this admission: 11/14/17 - Critical Care Critical Care patient: No - Discharge Referral Referred to [facility] No
[2017-11-14] MEDS ORDERED: BISACODYL 10 MG SUPP.RECT PR ONE (18:34)
[2017-11-14 20:12] LABS: HEMATOCRIT 26.4 % (32.4-45.2); HEMOGLOBIN 8.4 GM/dL (10.7-15.3); MCHC 31.9 g/dl (32.0-36.0); MEAN CELL VOLUME 90.9 fl (80-96); RDW 15.5 % (11.6-15.6); WHITE BLOOD COUNT 14.2 K/mm3 (4.0-10.0)
[2017-11-14 21:11] LABS: MEAN PLT VOLUME 7.9 fl (7.5-11.1); PLATELET COUNT 593 K/MM3 (134-434)
[2017-11-14] MEDS: ATORVASTATIN CA 40 MG TABLET (FP) PO SCH (22:54)
--- NOTE | 2017-11-14 23:45 | PN ---
Progress Note (short form) - Note Progress Note: Problems 1. CKD 2. PVD 3. leg pain 4. DM 5. HTN 6. hyperkalemia 7. HLD 8. CVA Current Medications Acetaminophen (Tylenol -) 650 mg PO Q4H PRN PRN Reason: PAIN SCALE 7-10 Last Admin: 11/14/17 11:47 Dose: 650 mg Amlodipine Besylate (Norvasc -) 10 mg PO DAILY [facility] Last Admin: 11/14/17 09:16 Dose: 10 mg Atorvastatin Calcium (Lipitor -) 40 mg PO HS [facility] Last Admin: 11/14/17 22:54 Dose: 40 mg Duloxetine HCl (Cymbalta -) 20 mg PO DAILY [facility] Last Admin: 11/14/17 09:16 Dose: 20 mg Gabapentin (Neurontin -) 600 mg PO TID [facility] Last Admin: 11/14/17 22:55 Dose: 600 mg Heparin Sodium (Porcine) (Heparin -) 5,000 unit SQ TID [facility] Last Admin: 11/14/17 22:55 Dose: 5,000 unit Insulin Aspart (Novolog Vial Sliding Scale -) 1 vial SQ HS [facility]; Protocol Last Admin: 11/14/17 22:56 Dose: Not Given Insulin Aspart (Novolog Vial Sliding Scale -) 1 vial SQ TIDAC [facility]; Protocol Last Admin: 11/14/17 17:57 Dose: 2 units Lactobacillus Acidophilus (Bacid -) 1 tab PO DAILY [facility] Last Admin: 11/14/17 09:16 Dose: 1 tab Metoprolol Tartrate (Lopressor -) 25 mg PO BID [facility] Last Admin: 11/14/17 22:55 Dose: 25 mg Oxycodone HCl (Roxicodone -) 10 mg PO Q4H PRN PRN Reason: PAIN SCALE 7-10 Last Admin: 11/14/17 11:47 Dose: 10 mg Oxycodone HCl (Roxicodone -) 5 mg PO Q4H PRN PRN Reason: PAIN LEVEL 1-5 Polyethylene Glycol (Miralax (For Daily Use) -) 17 gm PO DAILY [facility] Last Admin: 11/14/17 09:17 Dose: Not Given Sodium Bicarbonate (Sodium Bicarbonate -) 325 mg PO BID [facility] Last Admin: 11/14/17 22:55 Dose: 325 mg Last Vital Signs Temp Pulse Resp BP Pulse Ox 99.1 F 80 20 138/82 92 L 05/26/18 17:39 11/14/17 17:39 11/14/17 17:39 11/14/17 17:39 11/14/17 09:00 CBC, BMP 11/14/17 19:30 11/14/17 08:05 Plan- same rx
[2017-11-15] MEDS: INSULIN SLIDING SCALE (NOVOLOG) 1 VIAL SQ SCH ×4 (06:52→22:30)
[2017-11-15] MEDS: HEPARIN NA (PORCINE) 5,000 UNITS/ML 1ML VIAL SQ SCH ×3 (06:53→22:32)
[2017-11-15] MEDS: GABAPENTIN 300 MG CAPSULE (FP) PO SCH ×3 (06:53→22:31)
[2017-11-15] MEDS ORDERED: INSULIN (NOVOLOG) ASPART 100 UNITS/ML 10ML VIAL ONE (06:58)
[2017-11-15] MEDS ORDERED: PT OWN MED DRAWER 7, Y5N ONE (09:00)
[2017-11-15] MEDS: amLODIPine BESYLATE 10 MG TABLET (FP) PO SCH (09:05)
[2017-11-15] MEDS: oxyCODONE HCL 5 MG TABLET PO PRN ×3 (09:05→22:32)
[2017-11-15] MEDS: METOPROLOL TARTRATE 25 MG TABLET (FP) PO SCH ×2 (09:05→22:31)
[2017-11-15] MEDS: LACTOBACILLUS ACIDOPHILUS 1 TABLET PO SCH (09:05)
[2017-11-15] MEDS: ACETAMINOPHEN 325 MG TABLET (FP) PO PRN ×2 (09:05→15:22)
[2017-11-15] MEDS: SODIUM BICARBONATE 650 MG TABLET PO SCH ×2 (09:06→22:31)
[2017-11-15] MEDS: DULoxetine HCL 20 MG CAPSULE.DR (FP) PO SCH (09:06)
[2017-11-15] MEDS: POLYETHYLENE GLYCOL 3350 119 GM BTL PO SCH ×2 (09:06→15:20)
--- NOTE | 2017-11-15 09:34 | PN ---
Physical Exam: SUBJECTIVE: Patient seen and examined. She is complaining of pain in left BKA stump. OBJECTIVE: Vital Signs Period Temp Pulse Resp BP Sys/[place] Pulse Ox Last 24 Hr 99 F-99.9 F 80-103 20-20 138-162/82-92 92 GENERAL: The patient is awake, alert, and fully oriented, in no acute distress. LUNGS: Breath sounds equal, clear to auscultation bilaterally, no wheezes, no crackles, no accessory muscle use. HEART: Regular rate and rhythm, S1, S2 without murmur, rub or gallop. ABDOMEN: Soft, nontender, nondistended, normoactive bowel sounds, no guarding, no rebound, no hepatosplenomegaly, no masses. EXTREMITIES: Bilateral BKA Laboratory Results - last 24 hr 11/11/17 11/14/17 11/14/17 11:30 08:05 11:48 WBC RBC Hgb Hct MCV MCH MCHC RDW Plt Count MPV Platelet Comment POC Glucometer 194 Blood Type O POSITIVE Antibody Screen Negative Crossmatch See Detail 11/14/17 11/14/17 11/14/17 17:56 19:30 22:53 WBC 14.2 H RBC 2.90 L Hgb 8.4 L D Hct 26.4 L D MCV 90.9 MCH 29.0 MCHC 31.9 L RDW 15.5 Plt Count 593 H MPV 7.9 Platelet Comment POC Glucometer 200 163 Blood Type Antibody Screen Crossmatch 11/15/17 06:49 WBC RBC Hgb Hct MCV MCH MCHC RDW Plt Count MPV Platelet Comment POC Glucometer 158 Blood Type Antibody Screen Crossmatch Active Medications Generic Name Dose Route Start Last Admin Trade Name Freq PRN Reason Stop Dose Admin Acetaminophen 650 mg 11/12/17 19:54 11/15/17 09:05 Tylenol - PO 650 mg Q4H PRN Administration PAIN SCALE 7-10 Amlodipine Besylate 10 mg 11/13/17 10:00 11/15/17 09:05 Norvasc - PO 10 mg DAILY [facility] Administration Atorvastatin Calcium 40 mg 11/12/17 22:00 11/14/17 22:54 Lipitor - PO 40 mg HS [facility] Administration Duloxetine HCl 20 mg 11/13/17 10:00 11/15/17 09:06 Cymbalta - PO 20 mg DAILY [facility] Administration Gabapentin 600 mg 11/12/17 22:00 11/15/17 06:53 Neurontin - PO Not Given TID [facility] Heparin Sodium (Porcine) 5,000 unit 11/12/17 22:00 11/15/17 06:53 Heparin - SQ Not Given TID [facility] Insulin Aspart 1 vial 11/12/17 22:00 11/14/17 22:56 Novolog Vial Sliding Scale - SQ Not Given HS [facility] Protocol Insulin Aspart 1 vial 11/13/17 07:00 11/15/17 06:52 Novolog Vial Sliding Scale - SQ 2 units TIDAC [facility] Administration Protocol Lactobacillus Acidophilus 1 tab 11/13/17 10:00 11/15/17 09:05 Bacid - PO 1 tab DAILY [facility] Administration Metoprolol Tartrate 25 mg 11/12/17 22:00 11/15/17 09:05 Lopressor - PO 25 mg BID [facility] Administration Oxycodone HCl 10 mg 11/12/17 19:54 11/15/17 09:05 Roxicodone - PO 10 mg Q4H PRN Administration PAIN SCALE 7-10 Oxycodone HCl 5 mg 11/13/17 15:30 Roxicodone - PO Q4H PRN PAIN LEVEL 1-5 Polyethylene Glycol 17 gm 11/13/17 10:00 11/15/17 09:06 Miralax (For Daily Use) - PO Not Given DAILY [facility] Sodium Bicarbonate 325 mg 11/13/17 16:22 11/15/17 09:06 Sodium Bicarbonate - PO 325 mg BID [facility] Administration ASSESSMENT/PLAN: 1. PAD with left foot gangrene - s/p left BKA 11/12 - Had prior right BKA - Pain control with Neurontin, oxycodone as needed - Physical therapy - Will likely need short term rehab at discharge 2. Hyperkalemia - Improved with Kayexalate and IV fluid 3. Stage 3 CKD - Stable - Continue sodium bicarb 4. CAD - Continue Lopressor, Lipitor 5. Type 2 diabetes mellitus - Continue Novolog sliding scale 6. HTN - Continue Norvasc, Lopressor 7. Anemia, likely acute blood loss on chronic anemia - 2 units PRBCS ordered but patient refused yesterday - repeat hemoglobin yesterday improved to 8.4 - Continue to monitor hemoglobin Visit type - Emergency Visit Emergency Visit: Yes ED Registration Date: 11/07/17 Care time: The patient presented to the Emergency Department on the above date and was hospitalized for further evaluation of their emergent condition. - New Patient This patient is new to me today: No - Critical Care Critical Care patient: No - Discharge Referral Referred to [facility] No
[2017-11-15 09:37] LABS: HEMATOCRIT 25.4 % (32.4-45.2); HEMOGLOBIN 8.4 GM/dL (10.7-15.3); MCH 29.3 pg (25.7-33.7); MCHC 32.9 g/dl (32.0-36.0); PLATELET COUNT 710 K/MM3 (134-434); RBC 2.86 M/mm3 (3.60-5.2); WHITE BLOOD COUNT 11.8 K/mm3 (4.0-10.0)
[2017-11-15] MEDS ORDERED: MAG HYDROX/AL HYDROX/SIMETH 30 ML UNIT-DOSE CUP PO PRN ×2 (09:50→09:54)
--- NOTE | 2017-11-15 10:07 | PN ---
Progress Note (short form) - Note Progress Note: Vascular Surgery DRessing for left bka changed. Incision is clean, and dry and intact. Knee immobilizer placed. Cleared to be transferred to rehab. Return to clinic in 2 weeks to have clary removed. Jose Manzo DO
[2017-11-15 10:14] LABS: CHLORIDE 111 mmol/L (98-107); POTASSIUM 4.7 mmol/L (3.5-5.1); SODIUM 143 mmol/L (136-145)
[2017-11-15 10:43] LABS: ANION GAP 9 (8-16); BLOOD UREA NITROGEN 20 mg/dL (7-18); CALCIUM 8.1 mg/dL (8.5-10.1); CO2 23 mmol/L (21-32); CREATININE 1.3 mg/dL (0.55-1.02); GLUCOSE,RANDOM 66 mg/dL (74-106)
--- NOTE | 2017-11-15 20:36 | PN ---
Progress Note (short form) - Note Progress Note: Problems 1. CKD 2. PVD 3. leg pain 4. DM 5. HTN 6. hyperkalemia 7. HLD 8. CVA Current Medications Acetaminophen (Tylenol -) 650 mg PO Q4H PRN PRN Reason: PAIN SCALE 7-10 Last Admin: 11/15/17 15:22 Dose: 650 mg Al Hydroxide/Mg Hydroxide (Mylanta Oral Suspension -) 30 ml PO Q6H PRN PRN Reason: INDIGESTION Last Admin: 11/15/17 10:22 Dose: 30 ml Amlodipine Besylate (Norvasc -) 10 mg PO DAILY [facility] Last Admin: 11/15/17 09:05 Dose: 10 mg Atorvastatin Calcium (Lipitor -) 40 mg PO [facility] Last Admin: 11/14/17 22:54 Dose: 40 mg Duloxetine HCl (Cymbalta -) 20 mg PO DAILY [facility] Last Admin: 11/15/17 09:06 Dose: 20 mg Gabapentin (Neurontin -) 600 mg PO TID [facility] Last Admin: 11/15/17 15:21 Dose: 600 mg Heparin Sodium (Porcine) (Heparin -) 5,000 unit SQ TID [facility] Last Admin: 11/15/17 15:20 Dose: 5,000 unit Insulin Aspart (Novolog Vial Sliding Scale -) 1 vial SQ [facility]; Protocol Last Admin: 11/14/17 22:56 Dose: Not Given Insulin Aspart (Novolog Vial Sliding Scale -) 1 vial SQ TIDAC [facility]; Protocol Last Admin: 11/15/17 17:04 Dose: Not Given Lactobacillus Acidophilus (Bacid -) 1 tab PO DAILY [facility] Last Admin: 11/15/17 09:05 Dose: 1 tab Metoprolol Tartrate (Lopressor -) 25 mg PO BID [facility] Last Admin: 11/15/17 09:05 Dose: 25 mg Oxycodone HCl (Roxicodone -) 10 mg PO Q4H PRN PRN Reason: PAIN SCALE 7-10 Last Admin: 11/15/17 15:21 Dose: 10 mg Oxycodone HCl (Roxicodone -) 5 mg PO Q4H PRN PRN Reason: PAIN LEVEL 1-5 Polyethylene Glycol (Miralax (For Daily Use) -) 17 gm PO DAILY [facility] Last Admin: 11/15/17 15:20 Dose: 17 grams Sodium Bicarbonate (Sodium Bicarbonate -) 325 mg PO BID [facility] Last Admin: 11/15/17 09:06 Dose: 325 mg Last Vital Signs Temp Pulse Resp BP Pulse Ox 98.5 F 92 H 20 149/87 93 L 11/15/17 17:28 11/15/17 17:28 11/15/17 17:28 11/15/17 17:28 11/15/17 09:00 lungs clear heart reg abd soft nontender CBC, BMP 11/15/17 08:43 11/15/17 08:43 Plan- same rx
[2017-11-15] MEDS: ATORVASTATIN CA 40 MG TABLET (FP) PO SCH (22:31)
[2017-11-16] MEDS: GABAPENTIN 300 MG CAPSULE (FP) PO SCH ×3 (06:08→21:02)
[2017-11-16] MEDS: HEPARIN NA (PORCINE) 5,000 UNITS/ML 1ML VIAL SQ SCH ×3 (06:08→21:02)
[2017-11-16] MEDS: INSULIN SLIDING SCALE (NOVOLOG) 1 VIAL SQ SCH ×4 (06:09→21:08)
[2017-11-16 07:44] LABS: HEMOGLOBIN 8.1 GM/dL (10.7-15.3)
[2017-11-16 07:51] LABS: CHLORIDE 111 mmol/L (98-107); SODIUM 141 mmol/L (136-145)
[2017-11-16 08:00] LABS: ANION GAP 7 (8-16); BLOOD UREA NITROGEN 18 mg/dL (7-18); CALCIUM 7.8 mg/dL (8.5-10.1); CO2 23 mmol/L (21-32); CREATININE 1.2 mg/dL (0.55-1.02); GLUCOSE,RANDOM 139 mg/dL (74-106)
[2017-11-16 08:16] LABS: BASO % 1.1 % (0-2.0); EOS % 3.4 % (0-4.5); LYMPH % 22.1 % (8-40); MCH 29.2 pg (25.7-33.7); MCHC 32.5 g/dl (32.0-36.0); MEAN CELL VOLUME 89.8 fl (80-96); MEAN PLT VOLUME 8.7 fl (7.5-11.1); MONO % 8.3 % (3.8-10.2); NEUT % 65.1 % (42.8-82.8); PLATELET COUNT 593 K/MM3 (134-434); RBC 2.78 M/mm3 (3.60-5.2); RDW 14.8 % (11.6-15.6); WHITE BLOOD COUNT 15.9 K/mm3 (4.0-10.0)
[2017-11-16 08:39] LABS: POTASSIUM 4.9 mmol/L (3.5-5.1)
[2017-11-16] MEDS ORDERED: PT OWN MED DRAWER 7, Y5N ONE ×3 (09:00→14:08)
[2017-11-16] MEDS: DULoxetine HCL 20 MG CAPSULE.DR (FP) PO SCH (09:02)
[2017-11-16] MEDS: LACTOBACILLUS ACIDOPHILUS 1 TABLET PO SCH (09:02)
[2017-11-16] MEDS: METOPROLOL TARTRATE 25 MG TABLET (FP) PO SCH ×2 (09:03→21:02)
[2017-11-16] MEDS: POLYETHYLENE GLYCOL 3350 119 GM BTL PO SCH (09:03)
[2017-11-16] MEDS: oxyCODONE HCL 5 MG TABLET PO PRN ×3 (09:03→21:02)
[2017-11-16] MEDS: SODIUM BICARBONATE 650 MG TABLET PO SCH ×2 (09:05→21:01)
[2017-11-16] MEDS: ACETAMINOPHEN 325 MG TABLET (FP) PO PRN ×3 (09:06→21:01)
[2017-11-16] MEDS: amLODIPine BESYLATE 10 MG TABLET (FP) PO SCH (09:18)
--- NOTE | 2017-11-16 09:32 | PN ---
Progress Note, Physician - Current Medication List Current Medications: Active Medications Acetaminophen (Tylenol -) 650 mg PO Q4H PRN PRN Reason: PAIN SCALE 7-10 Last Admin: 11/16/17 09:06 Dose: 650 mg Al Hydroxide/Mg Hydroxide (Mylanta Oral Suspension -) 30 ml PO Q6H PRN PRN Reason: INDIGESTION Last Admin: 11/15/17 10:22 Dose: 30 ml Amlodipine Besylate (Norvasc -) 10 mg PO DAILY [facility] Last Admin: 11/16/17 09:18 Dose: 10 mg Atorvastatin Calcium (Lipitor -) 40 mg PO HS [facility] Last Admin: 11/15/17 22:31 Dose: 40 mg Duloxetine HCl (Cymbalta -) 20 mg PO DAILY [facility] Last Admin: 11/16/17 09:02 Dose: 20 mg Gabapentin (Neurontin -) 600 mg PO TID [facility] Last Admin: 11/16/17 06:08 Dose: 600 mg Heparin Sodium (Porcine) (Heparin -) 5,000 unit SQ TID [facility] Last Admin: 11/16/17 06:08 Dose: 5,000 unit Insulin Aspart (Novolog Vial Sliding Scale -) 1 vial SQ [facility]; Protocol Last Admin: 11/15/17 22:30 Dose: Not Given Insulin Aspart (Novolog Vial Sliding Scale -) 1 vial SQ TIDAC [facility]; Protocol Last Admin: 11/16/17 06:09 Dose: 2 units Lactobacillus Acidophilus (Bacid -) 1 tab PO DAILY [facility] Last Admin: 11/16/17 09:02 Dose: 1 tab Metoprolol Tartrate (Lopressor -) 25 mg PO BID [facility] Last Admin: 11/16/17 09:03 Dose: 25 mg Oxycodone HCl (Roxicodone -) 10 mg PO Q4H PRN PRN Reason: PAIN SCALE 7-10 Last Admin: 11/16/17 09:03 Dose: 10 mg Oxycodone HCl (Roxicodone -) 5 mg PO Q4H PRN PRN Reason: PAIN LEVEL 1-5 Polyethylene Glycol (Miralax (For Daily Use) -) 17 gm PO DAILY [facility] Last Admin: 11/16/17 09:03 Dose: Not Given Sodium Bicarbonate (Sodium Bicarbonate -) 325 mg PO BID [facility] Last Admin: 11/16/17 09:05 Dose: 325 mg - Objective Vital Signs: Vital Signs Temperature 98.7 F 11/16/17 06:00 Pulse Rate 92 H 11/16/17 06:00 Respiratory Rate 20 11/16/17 06:00 Blood Pressure 158/91 11/16/17 06:00 O2 Sat by Pulse Oximetry (%) 93 L 11/15/17 21:00 Cardiovascular: Yes: Regular Rate and Rhythm Respiratory: Yes: Regular, CTA Bilaterally Gastrointestinal: Yes: Normal Bowel Sounds, Soft. No: Tenderness Labs: CBC, BMP 11/16/17 07:00 11/16/17 07:00 INR, PTT INR 1.11 (0.82-1.09) 11/07/17 00:45 Problem List - Problems (1) Gangrene associated with diabetes mellitus Code(s): E11.52 - TYPE 2 DIABETES W DIABETIC PERIPHERAL ANGIOPATHY W [place]ANGR[place] (2) PAD (peripheral artery disease) Code(s): I73.9 - PERIPHERAL VASCULAR DISEASE, UNSPECIFIED (3) CKD (chronic kidney disease) Code(s): N18.9 - CHRONIC KIDNEY DISEASE, UNSPECIFIED (4) Diabetes Code(s): E11.9 - TYPE 2 DIABETES MELLITUS WITHOUT COMPLICATIONS Qualifiers: Diabetes mellitus type: type 2 Diabetes mellitus complication status: with circulatory complication (5) Hypertension Code(s): I10 - ESSENTIAL (PRIMARY) HYPERTENSION Assessment/Plan - Problems (1) Foot pain, left Assessment/Plan: left BKA done neurotin TID dvt ppx oxycodone 5mg q4hr prn for pain 1-5 oxycodone 10mg po q4 prn for pain 6-10 Code(s): M79.672 - PAIN IN LEFT FOOT (2) CAD (coronary artery disease) Assessment/Plan: metoprolol, statin and norvasc cardiology on board Code(s): I25.10 - ATHSCL HEART DISEASE OF [place] CORONARY ARTERY W/O ANG PCTRS (3) Diabetes Assessment/Plan: sliding scale bgm [id number] Code(s): E11.9 - TYPE 2 DIABETES MELLITUS WITHOUT COMPLICATIONS Qualifiers: Diabetes mellitus type: type 2
[2017-11-16 11:19] LABS: ANISOCYTOSIS 1+; PLATELET ESTIMATE INCREASED; SMUDGE CELLS FEW
[2017-11-16] MEDS ORDERED: INSULIN (NOVOLOG) ASPART 100 UNITS/ML 10ML VIAL ONE (20:59)
[2017-11-16] MEDS: ATORVASTATIN CA 40 MG TABLET (FP) PO SCH (21:00)
--- NOTE | 2017-11-16 21:59 | PN ---
Progress Note (short form) - Note Progress Note: Problems 1. CKD 2. PVD 3. leg pain 4. DM 5. HTN 6. hyperkalemia 7. HLD 8. CVA Current Medications Acetaminophen (Tylenol -) 650 mg PO Q4H PRN PRN Reason: PAIN SCALE 7-10 Last Admin: 11/16/17 21:01 Dose: 650 mg Al Hydroxide/Mg Hydroxide (Mylanta Oral Suspension -) 30 ml PO Q6H PRN PRN Reason: INDIGESTION Last Admin: 11/15/17 10:22 Dose: 30 ml Amlodipine Besylate (Norvasc -) 10 mg PO DAILY [facility] Last Admin: 11/16/17 09:18 Dose: 10 mg Atorvastatin Calcium (Lipitor -) 40 mg PO HS [facility] Last Admin: 11/16/17 21:00 Dose: 40 mg Duloxetine HCl (Cymbalta -) 20 mg PO DAILY [facility] Last Admin: 11/16/17 09:02 Dose: 20 mg Gabapentin (Neurontin -) 600 mg PO TID [facility] Last Admin: 11/16/17 21:02 Dose: 600 mg Heparin Sodium (Porcine) (Heparin -) 5,000 unit SQ TID [facility] Last Admin: 11/16/17 21:02 Dose: 5,000 unit Insulin Aspart (Novolog Vial Sliding Scale -) 1 vial SQ [facility]; Protocol Last Admin: 11/16/17 21:08 Dose: Not Given Insulin Aspart (Novolog Vial Sliding Scale -) 1 vial SQ TIDAC [facility]; Protocol Last Admin: 11/16/17 17:54 Dose: 2 units Lactobacillus Acidophilus (Bacid -) 1 tab PO DAILY [facility] Last Admin: 11/16/17 09:02 Dose: 1 tab Metoprolol Tartrate (Lopressor -) 25 mg PO BID [facility] Last Admin: 11/16/17 21:02 Dose: 25 mg Oxycodone HCl (Roxicodone -) 10 mg PO Q4H PRN PRN Reason: PAIN SCALE 7-10 Last Admin: 11/16/17 21:02 Dose: 10 mg Oxycodone HCl (Roxicodone -) 5 mg PO Q4H PRN PRN Reason: PAIN LEVEL 1-5 Last Admin: 11/16/17 11:42 Dose: 5 mg Polyethylene Glycol (Miralax (For Daily Use) -) 17 gm PO DAILY [facility] Last Admin: 11/16/17 09:03 Dose: Not Given Sodium Bicarbonate (Sodium Bicarbonate -) 325 mg PO BID [facility] Last Admin: 11/16/17 21:01 Dose: 325 mg Last Vital Signs Temp Pulse Resp BP Pulse Ox 98.1 F 81 20 140/69 93 L 11/16/17 15:48 11/16/17 15:48 11/16/17 15:48 11/16/17 15:48 11/15/17 21:00 lungs clear heart reg abd soft nontender CBC, BMP 11/16/17 07:00 11/16/17 07:00 CBC, BMP 11/15/17 08:43 11/15/17 08:43 PATRICIA/CKD steady improvement Plan- same rx
[2017-11-17] MEDS: GABAPENTIN 300 MG CAPSULE (FP) PO SCH ×3 (06:30→21:40)
[2017-11-17] MEDS: HEPARIN NA (PORCINE) 5,000 UNITS/ML 1ML VIAL SQ SCH ×3 (06:30→21:40)
[2017-11-17] MEDS: INSULIN SLIDING SCALE (NOVOLOG) 1 VIAL SQ SCH ×4 (06:33→21:43)
[2017-11-17] MEDS: oxyCODONE HCL 5 MG TABLET PO PRN ×4 (06:34→18:30)
--- NOTE | 2017-11-17 07:37 | PN ---
Progress Note (short form) - Note Progress Note: POD #5 Alert. Doing well. Wearing knee immobilizer as instructed (currently off as she' s taking a break from wearing). C/o incisional pain, adequate control via prn meds avss. afebrile LLE: clary intact. No signs of infection. Problem List - Problems (1) Status post below knee amputation of left lower extremity Assessment/Plan: POD #5 s/p LLE BKA cont to wear knee immobilizer dressing changed on rounds can be dc'd from a surgical standpoint Clary to be removed in Dr. Manzo's office in 2 weeks Code(s): Z89.512 - ACQUIRED ABSENCE OF LEFT LEG BELOW KNEE
--- NOTE | 2017-11-17 08:57 | PN ---
Progress Note, Physician - Current Medication List Current Medications: Active Medications Acetaminophen (Tylenol -) 650 mg PO Q4H PRN PRN Reason: PAIN SCALE 7-10 Last Admin: 11/16/17 21:01 Dose: 650 mg Al Hydroxide/Mg Hydroxide (Mylanta Oral Suspension -) 30 ml PO Q6H PRN PRN Reason: INDIGESTION Last Admin: 11/15/17 10:22 Dose: 30 ml Amlodipine Besylate (Norvasc -) 10 mg PO DAILY [facility] Last Admin: 11/16/17 09:18 Dose: 10 mg Atorvastatin Calcium (Lipitor -) 40 mg PO HS [facility] Last Admin: 11/16/17 21:00 Dose: 40 mg Duloxetine HCl (Cymbalta -) 20 mg PO DAILY [facility] Last Admin: 11/16/17 09:02 Dose: 20 mg Gabapentin (Neurontin -) 600 mg PO TID [facility] Last Admin: 11/17/17 06:30 Dose: 600 mg Heparin Sodium (Porcine) (Heparin -) 5,000 unit SQ TID [facility] Last Admin: 11/17/17 06:30 Dose: 5,000 unit Insulin Aspart (Novolog Vial Sliding Scale -) 1 vial SQ [facility]; Protocol Last Admin: 11/16/17 21:08 Dose: Not Given Insulin Aspart (Novolog Vial Sliding Scale -) 1 vial SQ TIDAC [facility]; Protocol Last Admin: 11/17/17 06:33 Dose: 2 units Lactobacillus Acidophilus (Bacid -) 1 tab PO DAILY [facility] Last Admin: 11/16/17 09:02 Dose: 1 tab Metoprolol Tartrate (Lopressor -) 25 mg PO BID [facility] Last Admin: 11/16/17 21:02 Dose: 25 mg Oxycodone HCl (Roxicodone -) 10 mg PO Q4H PRN PRN Reason: PAIN SCALE 7-10 Last Admin: 11/17/17 06:34 Dose: 10 mg Oxycodone HCl (Roxicodone -) 5 mg PO Q4H PRN PRN Reason: PAIN LEVEL 1-5 Last Admin: 11/16/17 11:42 Dose: 5 mg Polyethylene Glycol (Miralax (For Daily Use) -) 17 gm PO DAILY [facility] Last Admin: 11/16/17 09:03 Dose: Not Given Sodium Bicarbonate (Sodium Bicarbonate -) 325 mg PO BID [facility] Last Admin: 11/16/17 21:01 Dose: 325 mg - Objective Vital Signs: Vital Signs Temperature 98.8 F 11/17/17 07:40 Pulse Rate 80 11/17/17 07:40 Respiratory Rate 20 11/17/17 07:40 Blood Pressure 158/76 11/17/17 07:40 O2 Sat by Pulse Oximetry (%) 93 L 11/16/17 21:00 Cardiovascular: Yes: S1, S2 Respiratory: Yes: Regular, CTA Bilaterally Gastrointestinal: Yes: Normal Bowel Sounds, Soft Labs: CBC, BMP 11/16/17 07:00 11/16/17 07:00 INR, PTT INR 1.11 (0.82-1.09) 11/07/17 00:45 Problem List - Problems (1) Gangrene associated with diabetes mellitus Code(s): E11.52 - TYPE 2 DIABETES W DIABETIC PERIPHERAL ANGIOPATHY W GANGRENE (2) PAD (peripheral artery disease) Code(s): I73.9 - PERIPHERAL VASCULAR DISEASE, UNSPECIFIED (3) CKD (chronic kidney disease) Code(s): N18.9 - CHRONIC KIDNEY DISEASE, UNSPECIFIED (4) Diabetes Code(s): E11.9 - TYPE 2 DIABETES MELLITUS WITHOUT COMPLICATIONS Qualifiers: Diabetes mellitus type: type 2 Diabetes mellitus complication status: with circulatory complication (5) Hypertension Code(s): I10 - ESSENTIAL (PRIMARY) HYPERTENSION Assessment/Plan - Problems (1) Foot pain, left Assessment/Plan: left BKA done neurotin TID dvt ppx oxycodone 5mg q4hr prn for pain 1-5 oxycodone 10mg po q4 prn for pain 6-10 Code(s): M79.672 - PAIN IN LEFT FOOT (2) CAD (coronary artery disease) Assessment/Plan: metoprolol, statin and norvasc cardiology on board Code(s): I25.10 - ATHSCL HEART DISEASE OF [place] CORONARY ARTERY W/O ANG PCTRS (3) Diabetes Assessment/Plan: sliding scale bgm [id number] Code(s): E11.9 - TYPE 2 DIABETES MELLITUS WITHOUT COMPLICATIONS Qualifiers: Diabetes mellitus type: type 2 (4) Leukocytosis Assessment/Plan: labs
[2017-11-17] MEDS ORDERED: INSULIN (NOVOLOG) ASPART 100 UNITS/ML 10ML VIAL ONE ×2 (09:53→21:05)
[2017-11-17] MEDS ORDERED: PT OWN MED DRAWER 7, Y5N ONE (09:55)
[2017-11-17] MEDS: METOPROLOL TARTRATE 25 MG TABLET (FP) PO SCH ×2 (10:07→21:45)
[2017-11-17] MEDS: LACTOBACILLUS ACIDOPHILUS 1 TABLET PO SCH (10:07)
[2017-11-17] MEDS: SODIUM BICARBONATE 650 MG TABLET PO SCH ×2 (10:07→21:50)
[2017-11-17] MEDS: ACETAMINOPHEN 325 MG TABLET (FP) PO PRN ×3 (10:07→18:30)
[2017-11-17] MEDS: amLODIPine BESYLATE 10 MG TABLET (FP) PO SCH (10:07)
[2017-11-17] MEDS: DULoxetine HCL 20 MG CAPSULE.DR (FP) PO SCH (10:12)
[2017-11-17] MEDS: POLYETHYLENE GLYCOL 3350 119 GM BTL PO SCH (10:13)
[2017-11-17 10:26] LABS: EOS % 4.1 % (0-4.5); HEMATOCRIT 27.1 % (32.4-45.2); HEMOGLOBIN 8.8 GM/dL (10.7-15.3); LYMPH % 21.7 % (8-40); MCH 29.3 pg (25.7-33.7); MCHC 32.4 g/dl (32.0-36.0); MEAN CELL VOLUME 90.4 fl (80-96); MONO % 7.8 % (3.8-10.2); NEUT % 65.4 % (42.8-82.8); WHITE BLOOD COUNT 9.7 K/mm3 (4.0-10.0)
[2017-11-17 11:44] LABS: MEAN PLT VOLUME 8.2 fl (7.5-11.1); PLATELET COUNT 729 K/MM3 (134-434); PLATELET ESTIMATE INCREASED
--- NOTE | 2017-11-17 13:15 | PN ---
Progress Note, Physician History of Present Illness: No c/o limb pain No fever/ chills WBC WNL - Current Medication List Current Medications: Active Medications Acetaminophen (Tylenol -) 650 mg PO Q4H PRN PRN Reason: PAIN SCALE 7-10 Last Admin: 11/17/17 10:07 Dose: 650 mg Al Hydroxide/Mg Hydroxide (Mylanta Oral Suspension -) 30 ml PO Q6H PRN PRN Reason: INDIGESTION Last Admin: 11/15/17 10:22 Dose: 30 ml Amlodipine Besylate (Norvasc -) 10 mg PO DAILY [facility] Last Admin: 11/17/17 10:07 Dose: 10 mg Atorvastatin Calcium (Lipitor -) 40 mg PO HS [facility] Last Admin: 11/16/17 21:00 Dose: 40 mg Duloxetine HCl (Cymbalta -) 20 mg PO DAILY [facility] Last Admin: 11/17/17 10:12 Dose: 20 mg Gabapentin (Neurontin -) 600 mg PO TID [facility] Last Admin: 11/17/17 06:30 Dose: 600 mg Heparin Sodium (Porcine) (Heparin -) 5,000 unit SQ TID [facility] Last Admin: 11/17/17 06:30 Dose: 5,000 unit Insulin Aspart (Novolog Vial Sliding Scale -) 1 vial SQ HS [facility]; Protocol Last Admin: 11/16/17 21:08 Dose: Not Given Insulin Aspart (Novolog Vial Sliding Scale -) 1 vial SQ TIDAC [facility]; Protocol Last Admin: 11/17/17 11:24 Dose: 2 units Lactobacillus Acidophilus (Bacid -) 1 tab PO DAILY [facility] Last Admin: 11/17/17 10:07 Dose: 1 tab Metoprolol Tartrate (Lopressor -) 25 mg PO BID [facility] Last Admin: 11/17/17 10:07 Dose: 25 mg Oxycodone HCl (Roxicodone -) 10 mg PO Q4H PRN PRN Reason: PAIN SCALE 7-10 Last Admin: 11/17/17 10:07 Dose: 10 mg Oxycodone HCl (Roxicodone -) 5 mg PO Q4H PRN PRN Reason: PAIN LEVEL 1-5 Last Admin: 11/16/17 11:42 Dose: 5 mg Polyethylene Glycol (Miralax (For Daily Use) -) 17 gm PO DAILY [facility] Last Admin: 11/17/17 10:13 Dose: Not Given Sodium Bicarbonate (Sodium Bicarbonate -) 325 mg PO BID [facility] Last Admin: 11/17/17 10:07 Dose: 325 mg - Objective Vital Signs: Vital Signs Temperature 98.5 F 11/17/17 09:30 Pulse Rate 84 11/17/17 09:30 Respiratory Rate 18 11/17/17 09:30 Blood Pressure 140/84 11/17/17 09:30 O2 Sat by Pulse Oximetry (%) 96 11/17/17 10:07 Constitutional: Yes: No Distress Eyes: Yes: Conjunctiva Clear Cardiovascular: Yes: Regular Rate and Rhythm, S1, S2 Respiratory: Yes: CTA Bilaterally Gastrointestinal: Yes: Normal Bowel Sounds, Soft Extremities: Yes: Other (S/P bilateral BKA) Labs: CBC, BMP 11/17/17 10:00 11/16/17 07:00 INR, PTT INR 1.11 (0.82-1.09) 11/07/17 00:45 Assessment/Plan Leukocytosis- resolved S/P BKA Observe off antibiotics
--- NOTE | 2017-11-17 13:34 | PATH ---
Surgical Pathology Report Patient Name: YEIMY CARUSO Med. Rec. #: [id number] /Age/Gender: 1965 (Age: 52) / F Account: [id number] Location: [facility] MED/SURG Taken: 11/12/2017 Received: 11/13/2017 Reported: 11/17/2017 Physicians: Jose Pimentel M.D. Specimen(s) Received LEFT LOWER EXTREMITY (LEG) Clinical History Gangrene left lower extremity Final Diagnosis LOWER EXTREMITY, LEFT, BELOW THE KNEE AMPUTATION: LOWER LEG WITH GANGRENOUS NECROSIS INVOLVING ALL DIGITS. MODERATE CALCIFIC ATHEROSCLEROSIS INVOLVING ANTERIOR TIBIAL ARTERY. MODERATE TO SEVERE CALCIFIC ATHEROSCLEROSIS INVOLVING POSTERIOR TIBIAL ARTERY AND DORSALIS PEDIS (FOCALLY, >90% OCCLUSION). NO EVIDENCE OF ACUTE OSTEOMYELITIS. SURGICAL MARGINS ARE VIABLE. Electronically Signed Faby Carlos M.D. Gross Description Received fresh labeled "left lower extremity," is a 36 cm in length product of a left below the knee amputation. The foot measures 25 cm from heel to toe. The proximal aspect displays a 5 cm in length exposed portion of tibia and a 12 cm in length exposed portion of fibula. The epidermal surface displays a 7.5 x 6.0 cm black, gangrenous lesion involving all 5 digits. The lesion involves the underlying bone. Sectioning of the vasculature reveals occlusions in the posterior tibial artery and dorsalis pedis. Sectioning of the anterior tibial artery reveals focal, segmental, mild to moderate atherosclerosis. [employer] sections are submitted in 6 cassettes as follows: 1-lesion with underlying bone, following decalcification; 2-bone marrow from margin, following decalcification; 3-skin and soft tissue margin; 4-anterior tibial artery; 5-posterior tibial artery; 6-dorsalis pedis. /11/13/2017 saudi/11/13/2017
--- NOTE | 2017-11-17 16:43 | PN ---
Progress Note, Physician History of Present Illness: Pt seen and examined at bedside. She is awake and alert. She denies shortness of breath. - Current Medication List Current Medications: Active Medications Acetaminophen (Tylenol -) 650 mg PO Q4H PRN PRN Reason: PAIN SCALE 7-10 Last Admin: 11/17/17 14:40 Dose: 650 mg Al Hydroxide/Mg Hydroxide (Mylanta Oral Suspension -) 30 ml PO Q6H PRN PRN Reason: INDIGESTION Last Admin: 11/15/17 10:22 Dose: 30 ml Amlodipine Besylate (Norvasc -) 10 mg PO DAILY [facility] Last Admin: 11/17/17 10:07 Dose: 10 mg Atorvastatin Calcium (Lipitor -) 40 mg PO HS [facility] Last Admin: 11/16/17 21:00 Dose: 40 mg Duloxetine HCl (Cymbalta -) 20 mg PO DAILY [facility] Last Admin: 11/17/17 10:12 Dose: 20 mg Gabapentin (Neurontin -) 600 mg PO TID [facility] Last Admin: 11/17/17 14:01 Dose: 600 mg Heparin Sodium (Porcine) (Heparin -) 5,000 unit SQ TID [facility] Last Admin: 11/17/17 14:01 Dose: 5,000 unit Insulin Aspart (Novolog Vial Sliding Scale -) 1 vial SQ HS [facility]; Protocol Last Admin: 11/16/17 21:08 Dose: Not Given Insulin Aspart (Novolog Vial Sliding Scale -) 1 vial SQ TIDAC [facility]; Protocol Last Admin: 11/17/17 11:24 Dose: 2 units Lactobacillus Acidophilus (Bacid -) 1 tab PO DAILY [facility] Last Admin: 11/17/17 10:07 Dose: 1 tab Metoprolol Tartrate (Lopressor -) 25 mg PO BID [facility] Last Admin: 11/17/17 10:07 Dose: 25 mg Oxycodone HCl (Roxicodone -) 10 mg PO Q4H PRN PRN Reason: PAIN SCALE 7-10 Last Admin: 11/17/17 14:40 Dose: 10 mg Oxycodone HCl (Roxicodone -) 5 mg PO Q4H PRN PRN Reason: PAIN LEVEL 1-5 Last Admin: 11/16/17 11:42 Dose: 5 mg Polyethylene Glycol (Miralax (For Daily Use) -) 17 gm PO DAILY [facility] Last Admin: 11/17/17 10:13 Dose: Not Given Sodium Bicarbonate (Sodium Bicarbonate -) 325 mg PO BID [facility] Last Admin: 11/17/17 10:07 Dose: 325 mg - Objective Vital Signs: Vital Signs Temperature 98.5 F 11/17/17 09:30 Pulse Rate 82 11/17/17 14:30 Respiratory Rate 20 11/17/17 14:30 Blood Pressure 123/73 11/17/17 14:30 O2 Sat by Pulse Oximetry (%) 96 11/17/17 10:07 Constitutional: Yes: Calm Eyes: Yes: Conjunctiva Clear HENT: Yes: Atraumatic Neck: Yes: Supple Cardiovascular: Yes: S1, S2 Gastrointestinal: Yes: WNL Genitourinary: Yes: WNL Musculoskeletal: Yes: Other (bilateral lower ext amputation) Edema: No Neurological: Yes: Oriented Psychiatric: Yes: Oriented Labs: CBC, BMP 11/17/17 10:00 11/16/17 07:00 INR, PTT INR 1.11 (0.82-1.09) 11/07/17 00:45 Problem List - Problems (1) CAD (coronary artery disease) Code(s): I25.10 - ATHSCL HEART DISEASE OF [place] CORONARY ARTERY W/O ANG PCTRS (2) Diabetes Code(s): E11.9 - TYPE 2 DIABETES MELLITUS WITHOUT COMPLICATIONS Qualifiers: Diabetes mellitus type: type 2 (3) Dry gangrene Code(s): I96 - GANGRENE, NOT ELSEWHERE CLASSIFIED (4) Foot pain, left Code(s): M79.672 - PAIN IN LEFT FOOT (5) CKD (chronic kidney disease) Code(s): N18.9 - CHRONIC KIDNEY DISEASE, UNSPECIFIED Assessment/Plan Current Medications Generic Name Dose Route Start Last Admin Trade Name Freq PRN Reason Stop Dose Admin Acetaminophen 650 mg 11/12/17 19:54 11/17/17 14:40 Tylenol - PO 650 mg Q4H PRN Administration PAIN SCALE 7-10 Al Hydroxide/Mg Hydroxide 30 ml 11/15/17 09:54 11/15/17 10:22 Mylanta Oral Suspension - PO 30 ml Q6H PRN Administration INDIGESTION Amlodipine Besylate 10 mg 11/13/17 10:00 11/17/17 10:07 Norvasc - PO 10 mg DAILY [facility] Administration Atorvastatin Calcium 40 mg 11/12/17 22:00 11/16/17 21:00 Lipitor - PO 40 mg HS [facility] Administration Duloxetine HCl 20 mg 11/13/17 10:00 11/17/17 10:12 Cymbalta - PO 20 mg DAILY [facility] Administration Gabapentin 600 mg 11/12/17 22:00 11/17/17 14:01 Neurontin - PO 600 mg TID [facility] Administration Heparin Sodium (Porcine) 5,000 unit 11/12/17 22:00 11/17/17 14:01 Heparin - SQ 5,000 unit TID [facility] Administration Insulin Aspart 1 vial 11/12/17 22:00 11/16/17 21:08 Novolog Vial Sliding Scale - SQ Not Given HS [facility] Protocol Insulin Aspart 1 vial 11/13/17 07:00 11/17/17 11:24 Novolog Vial Sliding Scale - SQ 2 units TIDAC [facility] Administration Protocol Lactobacillus Acidophilus 1 tab 11/13/17 10:00 11/17/17 10:07 Bacid - PO 1 tab DAILY [facility] Administration Metoprolol Tartrate 25 mg 11/12/17 22:00 11/17/17 10:07 Lopressor - PO 25 mg BID [facility] Administration Oxycodone HCl 10 mg 11/12/17 19:54 11/17/17 14:40 Roxicodone - PO 10 mg Q4H PRN Administration PAIN SCALE 7-10 Oxycodone HCl 5 mg 11/13/17 15:30 11/16/17 11:42 Roxicodone - PO 5 mg Q4H PRN Administration PAIN LEVEL 1-5 Polyethylene Glycol 17 gm 11/13/17 10:00 11/17/17 10:13 Miralax (For Daily Use) - PO Not Given DAILY [facility] Sodium Bicarbonate 325 mg 11/13/17 16:22 11/17/17 10:07 Sodium Bicarbonate - PO 325 mg BID [facility] Administration Impression 1. CKD 2. PVD 3. leg pain 4. DM 5. HTN 6. hyperkalemia 7. HLD 8. CVA Plan - renal function is stabilizing - check bmp - cont wound care - discussed plan with pt
[2017-11-17] MEDS: ATORVASTATIN CA 40 MG TABLET (FP) PO SCH (21:40)
[2017-11-18] MEDS: GABAPENTIN 300 MG CAPSULE (FP) PO SCH ×2 (05:53→14:09)
[2017-11-18] MEDS: HEPARIN NA (PORCINE) 5,000 UNITS/ML 1ML VIAL SQ SCH ×2 (05:55→14:09)
[2017-11-18] MEDS: oxyCODONE HCL 5 MG TABLET PO PRN ×2 (06:01→09:59)
[2017-11-18] MEDS: ACETAMINOPHEN 325 MG TABLET (FP) PO PRN ×2 (06:02→10:00)
[2017-11-18] MEDS: INSULIN SLIDING SCALE (NOVOLOG) 1 VIAL SQ SCH ×2 (06:03→11:44)
[2017-11-18 08:01] LABS: CHLORIDE 111 mmol/L (98-107); POTASSIUM 5.6 mmol/L (3.5-5.1); SODIUM 141 mmol/L (136-145)
[2017-11-18 08:06] LABS: ANION GAP 9 (8-16); BLOOD UREA NITROGEN 19 mg/dL (7-18); CALCIUM 8.1 mg/dL (8.5-10.1); CO2 21 mmol/L (21-32); CREATININE 1.2 mg/dL (0.55-1.02); GLUCOSE,RANDOM 174 mg/dL (74-106)
--- NOTE | 2017-11-18 08:54 | DS ---
Physical Examination Vital Signs: Vital Signs Temperature 98.7 F 11/18/17 07:19 Pulse Rate 80 11/18/17 07:19 Respiratory Rate 20 11/18/17 07:19 Blood Pressure 146/80 11/18/17 07:19 O2 Sat by Pulse Oximetry (%) 96 11/17/17 21:00 Cardiovascular: Yes: S1, S2 Respiratory: Yes: Regular, CTA Bilaterally Gastrointestinal: Yes: Normal Bowel Sounds, Soft Extremities: Yes: Amputation Wound/Incision: Yes: Dressing Dry and Intact Labs: CBC, BMP 11/17/17 10:00 11/18/17 06:00 Discharge Summary Reason For Visit: GANGRENE ASSOCIATED WITH DIABETES MELLIT Current Active Problems CAD (coronary artery disease) (Acute) Diabetes (Acute) Dry gangrene (Acute) Foot pain, left (Acute) Gangrene associated with diabetes mellitus (Acute) PAD (peripheral artery disease) (Acute) Pre-op evaluation (Acute) Status post below knee amputation of left lower extremity (Acute) Hospital Course: This is a 43 year old female with a significant past medical history of DM, PAD , R BKA, chronic wound/gangrene L toes presented to the ED for pain to L foot. Pt was admitted here for same from 09/12-09/22, 10/05-10/13, 10/21-10/29 and then at [facility] from 11/03-11/06. Pt states she is now agreeing to amputation of toes. ER course was notable for: (1) WBC 9.3 Recent Travel: pt denies PAST MEDICAL HISTORY: HTN, HLD, PAD, DM, asthma, pancreatitis, pyelonephritis, s/p tibial artery angioplasty 10/08/17 PAST SURGICAL HISTORY: R BKA 2017 cholecystectomy 1997 Social History: Smoking: "1 cig/day" Alcohol: pt denies any history of same, previous charts document previous alcoholism Drugs: pt denies - Problems (1) Foot pain, left Assessment/Plan: left BKA done neurotin TID dvt ppx oxycodone 5mg q4hr prn for pain 1-5 oxycodone 10mg po q4 prn for pain 6-10 Code(s): M79.672 - PAIN IN LEFT FOOT (2) CAD (coronary artery disease) Assessment/Plan: metoprolol, statin and norvasc cardiology on board Code(s): I25.10 - ATHSCL HEART DISEASE OF [place] CORONARY ARTERY W/O ANG PCTRS (3) Diabetes Assessment/Plan: sliding scale bgm [id number] Code(s): E11.9 - TYPE 2 DIABETES MELLITUS WITHOUT COMPLICATIONS Qualifiers: Diabetes mellitus type: type 2 (4) Leukocytosis Assessment/Plan: labs (5) Renal insuficiency-hyperkalemia Assessment/Plan: monitor labs renal on case kayexalate prn Condition: Stable - Instructions Disposition: HOME - Home Medications Comprehensive Discharge Medication List: Ambulatory Orders Aspirin [ASA -] 81 mg PO DAILY 05/04/15 Clopidogrel Bisulfate [Plavix -] 75 mg PO DAILY 09/10/17 Atorvastatin Ca [Lipitor] 40 mg PO HS #30 tablet 09/21/17 Lactobacillus Acidophilus [Bacid -] 1 tab PO DAILY #30 tab 10/27/17 Amlodipine Besylate [Norvasc -] 10 mg PO DAILY tablet 11/18/17 Duloxetine HCl [Cymbalta -] 20 mg PO DAILY capsule. 11/18/17 Gabapentin [Neurontin -] 600 mg PO TID capsule 11/18/17 Heparin - 5,000 unit SQ TID vial 11/18/17 Insulin Sliding Scale [Novolog Vial Sliding Scale -] 1 vial SQ [facility] units Lactobacillus Acidophilus [Bacid -] 1 tab PO DAILY tab 11/18/17 Mag Hydrox/Al Hydrox/Simeth [Mylanta Oral Suspension -] 30 ml PO Q6H PRN cup Metoprolol Tartrate [Lopressor -] 25 mg PO BID tablet 11/18/17 Polyethylene Glycol 3350 [Miralax 119 gm Btl -] 17 gm PO DAILY bottle 11/18/17 oxyCODONE HCL [Roxicodone -] 5 mg PO Q4H PRN tablet MDD 4 11/18/17
[2017-11-18] MEDS ORDERED: PT OWN MED DRAWER 7, Y5N ONE (09:54)
[2017-11-18] MEDS: METOPROLOL TARTRATE 25 MG TABLET (FP) PO SCH (10:00)
[2017-11-18] MEDS: amLODIPine BESYLATE 10 MG TABLET (FP) PO SCH (10:00)
[2017-11-18] MEDS: LACTOBACILLUS ACIDOPHILUS 1 TABLET PO SCH (10:00)
[2017-11-18] MEDS: SODIUM BICARBONATE 650 MG TABLET PO SCH (10:00)
[2017-11-18] MEDS: DULoxetine HCL 20 MG CAPSULE.DR (FP) PO SCH (10:01)
[2017-11-18] MEDS: POLYETHYLENE GLYCOL 3350 119 GM BTL PO SCH (10:01)
[2017-11-18] MEDS ORDERED: SODIUM POLYSTYRENE SULFONATE 15 GM/60 ML BOTTLE PO ONE (11:18)
--- NOTE | 2017-11-18 12:44 | PN ---
Progress Note, Physician History of Present Illness: Pt seen and examined at bedside. She is awake and alert. - Current Medication List Current Medications: Active Medications Acetaminophen (Tylenol -) 650 mg PO Q4H PRN PRN Reason: PAIN SCALE 7-10 Last Admin: 11/18/17 10:00 Dose: 650 mg Al Hydroxide/Mg Hydroxide (Mylanta Oral Suspension -) 30 ml PO Q6H PRN PRN Reason: INDIGESTION Last Admin: 11/15/17 10:22 Dose: 30 ml Amlodipine Besylate (Norvasc -) 10 mg PO DAILY [facility] Last Admin: 11/18/17 10:00 Dose: 10 mg Atorvastatin Calcium (Lipitor -) 40 mg PO HS [facility] Last Admin: 11/17/17 21:40 Dose: 40 mg Duloxetine HCl (Cymbalta -) 20 mg PO DAILY [facility] Last Admin: 11/18/17 10:01 Dose: 20 mg Gabapentin (Neurontin -) 600 mg PO TID [facility] Last Admin: 11/18/17 05:53 Dose: 600 mg Heparin Sodium (Porcine) (Heparin -) 5,000 unit SQ TID [facility] Last Admin: 11/18/17 05:55 Dose: 5,000 unit Insulin Aspart (Novolog Vial Sliding Scale -) 1 vial SQ HS [facility]; Protocol Last Admin: 11/17/17 21:43 Dose: Not Given Insulin Aspart (Novolog Vial Sliding Scale -) 1 vial SQ TIDAC [facility]; Protocol Last Admin: 11/18/17 11:44 Dose: 3 units Lactobacillus Acidophilus (Bacid -) 1 tab PO DAILY [facility] Last Admin: 11/18/17 10:00 Dose: 1 tab Metoprolol Tartrate (Lopressor -) 25 mg PO BID [facility] Last Admin: 11/18/17 10:00 Dose: 25 mg Oxycodone HCl (Roxicodone -) 10 mg PO Q4H PRN PRN Reason: PAIN SCALE 7-10 Last Admin: 11/18/17 09:59 Dose: 10 mg Oxycodone HCl (Roxicodone -) 5 mg PO Q4H PRN PRN Reason: PAIN LEVEL 1-5 Last Admin: 11/16/17 11:42 Dose: 5 mg Polyethylene Glycol (Miralax (For Daily Use) -) 17 gm PO DAILY [facility] Last Admin: 11/18/17 10:01 Dose: Not Given Sodium Bicarbonate (Sodium Bicarbonate -) 325 mg PO BID [facility] Last Admin: 11/18/17 10:00 Dose: 325 mg - Objective Vital Signs: Vital Signs Temperature 98.7 F 11/18/17 07:19 Pulse Rate 80 11/18/17 07:19 Respiratory Rate 20 11/18/17 07:19 Blood Pressure 146/80 11/18/17 07:19 O2 Sat by Pulse Oximetry (%) 96 11/17/17 21:00 Constitutional: Yes: Calm Eyes: Yes: Conjunctiva Clear HENT: Yes: Atraumatic Cardiovascular: Yes: S1, S2 Respiratory: Yes: CTA Bilaterally Gastrointestinal: Yes: Soft Genitourinary: Yes: WNL Musculoskeletal: Yes: Other (bilateral lower ext amputations) Edema: No Neurological: Yes: Oriented Psychiatric: Yes: Oriented Labs: CBC, BMP 11/17/17 10:00 11/18/17 06:00 INR, PTT INR 1.11 (0.82-1.09) 11/07/17 00:45 Problem List - Problems (1) CAD (coronary artery disease) Code(s): I25.10 - ATHSCL HEART DISEASE OF [place] CORONARY ARTERY W/O ANG PCTRS (2) Diabetes Code(s): E11.9 - TYPE 2 DIABETES MELLITUS WITHOUT COMPLICATIONS Qualifiers: Diabetes mellitus type: type 2 (3) Dry gangrene Code(s): I96 - GANGRENE, NOT ELSEWHERE CLASSIFIED (4) Foot pain, left Code(s): M79.672 - PAIN IN LEFT FOOT (5) CKD (chronic kidney disease) Code(s): N18.9 - CHRONIC KIDNEY DISEASE, UNSPECIFIED Assessment/Plan Current Medications Generic Name Dose Route Start Last Admin Trade Name Freq PRN Reason Stop Dose Admin Acetaminophen 650 mg 11/12/17 19:54 11/18/17 10:00 Tylenol - PO 650 mg Q4H PRN Administration PAIN SCALE 7-10 Al Hydroxide/Mg Hydroxide 30 ml 11/15/17 09:54 11/15/17 10:22 Mylanta Oral Suspension - PO 30 ml Q6H PRN Administration INDIGESTION Amlodipine Besylate 10 mg 11/13/17 10:00 11/18/17 10:00 Norvasc - PO 10 mg DAILY [facility] Administration Atorvastatin Calcium 40 mg 11/12/17 22:00 11/17/17 21:40 Lipitor - PO 40 mg HS [facility] Administration Duloxetine HCl 20 mg 11/13/17 10:00 11/18/17 10:01 Cymbalta - PO 20 mg DAILY [facility] Administration Gabapentin 600 mg 11/12/17 22:00 11/18/17 05:53 Neurontin - PO 600 mg TID [facility] Administration Heparin Sodium (Porcine) 5,000 unit 11/12/17 22:00 11/18/17 05:55 Heparin - SQ 5,000 unit TID [facility] Administration Insulin Aspart 1 vial 11/12/17 22:00 11/17/17 21:43 Novolog Vial Sliding Scale - SQ Not Given HS [facility] Protocol Insulin Aspart 1 vial 11/13/17 07:00 11/18/17 11:44 Novolog Vial Sliding Scale - SQ 3 units TIDAC [facility] Administration Protocol Lactobacillus Acidophilus 1 tab 11/13/17 10:00 11/18/17 10:00 Bacid - PO 1 tab DAILY [facility] Administration Metoprolol Tartrate 25 mg 11/12/17 22:00 11/18/17 10:00 Lopressor - PO 25 mg BID [facility] Administration Oxycodone HCl 10 mg 11/12/17 19:54 11/18/17 09:59 Roxicodone - PO 10 mg Q4H PRN Administration PAIN SCALE 7-10 Oxycodone HCl 5 mg 11/13/17 15:30 11/16/17 11:42 Roxicodone - PO 5 mg Q4H PRN Administration PAIN LEVEL 1-5 Polyethylene Glycol 17 gm 11/13/17 10:00 11/18/17 10:01 Miralax (For Daily Use) - PO Not Given DAILY [facility] Sodium Bicarbonate 325 mg 11/13/17 16:22 11/18/17 10:00 Sodium Bicarbonate - PO 325 mg BID [facility] Administration Impression 1. CKD 2. PVD 3. leg pain 4. DM 5. HTN 6. hyperkalemia 7. HLD 8. CVA Plan - will need outpt follow up - pt was given kayexylate for potassium - recommend low potassium diet - cont with po bicarb - cont wound care Dr Kitchen
[2017-11-18 15:35] VITALS: BP 134/79; PULSE 70; TEMP 97.5
--- NOTE | 2017-11-25 13:51 | OP ---
DATE OF OPERATION: 11/12/2017 PREOPERATIVE DIAGNOSIS: Left foot gangrene. POSTOPERATIVE DIAGNOSIS: Left foot gangrene. PROCEDURE PERFORMED: Left below-knee amputation. SURGEON: Jose Sevilla DO ANESTHESIA: General. ESTIMATED BLOOD LOSS: 150 mL. INDICATIONS: The patient is a 52-year-old female who comes in with left foot gangrene. 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 It was decided that the best possible treatment is to do a below-knee amputation. DESCRIPTION OF PROCEDURE: The patient was consented for the procedure, understanding all risks, benefits and alternatives, and was then taken to the operating room. Prior to going to the operating room, she had medical and cardiology clearance for the procedure. Once in the operating room, general anesthesia was administered to the patient. We then ahead and going 4 fingerbreadths below the left tibial tuberosity, we chevy a step-off incision for our posterior flap. The leg was then prepped and draped in a sterile surgical manner using Betadine. We then went ahead and used a number 15 blade and cut along our marking for our posterior flap. Bovie electrocautery was used to control hemostasis. We were able to then get down and in the anterior compartment take down the muscles and get down to the anterior tibial artery and vein. That was isolated using a right-angle clamp, and we were then able to clamp and suture ligate with 0 silk suture. We then went medially and down the muscles around the tibia and got down to the posterior tibial artery. Once we got down to the posterior tibial artery, it was clamped and suture ligated using 0 silk. Then, using Bovie electrocautery, we isolated got down to the tibia and the fibula. Using Bovie electrocautery, we took down the soleus muscle and got down to the peroneal artery. The peroneal artery and vein were isolated. They were clamped and suture ligated using 0 silk. We then went ahead and continued to take use Bovie electrocautery and go posteriorly and take down the gastrocnemius muscle and the Achilles tendon. Once freed up, we then were able to use a bone saw and transect the tibia, and the fibula was transected 2 cm above the tibia. Once transected, we then took all the muscular attachments down using Bovie electrocautery. Once freed, the leg was then sent to Pathology. We then went ahead and using Bovie electrocautery we were able to control any bleeding, hemostasis. We then irrigated the wound copiously. We then went ahead and took our saw and beveled the tibia to make sure that that it does not rub against the flap. At this point we placed some bone wax on the tibia. We were able satish approximate the 2 wound edges using 2-0 Vicryl. We were able to approximate the fascia in an interrupted manner, 3-0 Vicryl was then used, and a 2nd layer to close the subcutaneous tissue was done in an interrupted manner, and the skin was then closed with skin clary. The area was wet and dried. Xeroform, 4 x 4's, Kerlix, and Coban were placed. The leg was placed in a knee immobilizer. Total blood loss was 150 mL. The patient was transferred to the PACU in stable condition. JOSE SEVILLA DO NP/[id number]
== END 2017-11-18 18:06 | DRG 305 ==
LOC: JER 21:53 → JERBED 11-07 03:27 → J8W 11-07 04:48
PROVIDERS: ADMIT Internal Medicine; ATTEND Family Medicine
PROC: 0Y6J0Z1 Detachment at Left Lower Leg, High, Open Approach (ICD-10-PCS; principal; 2017-11-12 14:00)
DX: E11.52 Type 2 diabetes mellitus with diabetic peripheral angiopathy with gangrene (principal); I96 Gangrene, not elsewhere classified; N17.9 Acute kidney failure, unspecified; E11.22 Type 2 diabetes mellitus with diabetic chronic kidney disease; E87.5 Hyperkalemia; D62 Acute posthemorrhagic anemia; Z79.4 Long term (current) use of insulin; Z89.511 Acquired absence of right leg below knee; E78.5 Hyperlipidemia, unspecified; I12.9 Hypertensive chronic kidney disease with stage 1 through stage 4 chronic kidney disease, or unspecified chronic kidney disease; I25.10 Atherosclerotic heart disease of native coronary artery without angina pectoris; F17.200 Nicotine dependence, unspecified, uncomplicated; D64.9 Anemia, unspecified; Z86.73 Personal history of transient ischemic attack (TIA), and cerebral infarction without residual deficits; N18.3 Chronic kidney disease, stage 3 (moderate); Z89.512 Acquired absence of left leg below knee
CPT/HCPCS: 36415; 71045-TC-FY; 80048; 80053; 80061; 82272; 82962; 83036; 83721; 85025; 85027; 85610; 86850; 86900; 86901; 86922; 87040; 88307-TC; 88311-TC; 93005; 93010; 94760; 97161-GP; 99283-25; J1644; J7030